=== PATIENT | female | born 1955 | race Caucasian/White ===

== ENCOUNTER 2020-03-02 13:26 | Emergency (ER) | payer BC, SELFPAY ==
--- NOTE | ~2020-03-02 | XR_ITS ---
EXAMINATION: XR tibia fibula RT 2V INDICATION: Right leg redness and swelling TECHNIQUE: Two views of the right tibia and fibula are obtained on three radiographs. COMPARISON: None available FINDINGS: There is no fracture, dislocation, or subluxation. Mild osteoarthritis is noted in the knee and midfoot. Soft tissue swelling is present. IMPRESSION: 1. Soft tissue swelling without acute osseous abnormality. Reviewed, dictated and finalized at location B.
--- NOTE | ~2020-03-02 | US_ITS ---
EXAMINATION: US venous doppler LE RT DATE: 03/02/2020 14:44 INDICATION: Right leg swelling and redness TECHNIQUE: Farrar scale images without and with compression and Doppler images of the right lower extre mity veins were obtained. COMPARISON: None. FINDINGS: There is lower limb edema. The right common femoral vein, profunda femoral vein, femoral ve in, popliteal vein, peroneal trunk, posterior tibial veins, and greater saphenous vein are patent. IMPRESSION: 1. Patent right lower extremity veins. No evidence of deep venous thrombosis. Reviewed, dictated and finalized at location B.
[2020-03-02 13:41] VITALS: BP 181/79; PULSE 102; RESP 22; TEMP 36.8; O2SAT 100
--- NOTE | 2020-03-02 13:47 | ED.LOWEXIN ---
HPI - Extremity Injury (Lower) General Chief Complaint: Extremity Injury, Lower Stated Complaint: R leg cellulitis Time Seen by Provider: 03/02/20 13:35 Source: patient Mode of arrival: ambulatory Limitations: no limitations History of Present Illness HPI Narrative: 64 yo female with h/o lymphedema, HTN who presents for evaluation of right leg redness starting 2 days ago. Patient states she has been evaluated by Vascular surgeon at [facility] care for bilateral leg swelling and venous insufficiency. She has had cellulitis to right leg in the past. She reports having vascular US 6 weeks ago which shows good blood flow. She was receiving wrapping treatments that were improving her swelling and redness but she had to stop due to Coronavirus. Her appointments have been rescheduled in April. She reports there is a sore to posterior right leg starting 2 days and she develop redness. She denies nausea, vomiting, fever, chills, weakness, chest pain or sob. Onset (ago): day(s) (2) Related Data Allergies Allergy/AdvReac Type Severity Reaction Status Date / Time sulfamethoxazole Allergy Rash Verified 03/02/20 14:52 [From Bactrim] trimethoprim [From Bactrim] Allergy Rash Verified 03/02/20 14:52 Review of Systems Review of Systems: All systems reviewed & are unremarkable except as noted in HPI and below Constitutional: Constitutional: Denies chills, Denies fever(s) and Denies weakness Cardiovascular: Cardiovascular: Denies chest pain and Denies radiating jaw, neck or arm pain Respiratory: Respiratory: Denies cough and Denies dyspnea Gastrointestinal: Gastrointestinal: Denies nausea and Denies vomiting Integumentary/Breasts: Skin/Breast: Reports skin ulcer PMFSH Past Medical History Medical History (Updated 03/02/20 @ 15:09 by Judy Ramírez MD) Cellulitis of right leg Hypertension Surgical History Surgical History (Updated 03/02/20 @ 13:56 by Judy Ramírez MD) History of bunionectomy Social History Social History Gender identity (if verbalized by the patient): Female Exam Narrative: Exam Narrative: GENERAL: Well-appearing, well-nourished, and in no acute distress. HEAD: Normocephalic, atraumatic EYES: PERRLA and EOMI, conjunctiva clear without discharge THROAT:Mucous membranes moist, NECK: Supple, without lymphadenopathy or mass RESPIRATORY: No respiratory distress, Airway patent, Respirations non-labored, Clear to auscultation without rales, rhonchi or wheeze HEART: Regular rate and rhythm. No murmur heard. Normal peripheral pulses. ABDOMEN: Soft, nontender, nondistended, normal active bowel sounds. No masses. No rebound or guarding, No organomegaly. EXTREMITIES: normal strength with full range of motion. NEURO: Alert and oriented x3. CN 2-12 grossly intact. No focal deficits. PSYCH: Normal mood and affect. Skin: Other: right lower leg erythema from ankle to just below knee with mild tenderness posterior calf, no drainage, bilateral leg edema Course Reevaluation(s) Reevaluation #1: I discussed with patient that she is stable for discharged with antibiotics for right leg cellulitis. Date: 03/02/20 Time: 15:06 Vital Signs Vital signs: Vital Signs Temperature 98.3 F 03/02/20 13:41 Pulse Rate 102 H 03/02/20 13:41 Respiratory Rate 22 H 03/02/20 13:41 Blood Pressure 181/79 H 03/02/20 13:41 Pulse Oximetry 100 03/02/20 13:41 Temperature 98.3 F 03/02/20 13:41 Pulse Rate 60 03/02/20 15:19 Respiratory Rate 16 03/02/20 15:19 Blood Pressure 143/75 H 03/02/20 15:19 Pulse Oximetry 100 03/02/20 15:19 MDM - Extremity Injury (Lower) Lab Data Attestation: I reviewed the patient's lab results. Result diagrams: 03/02/20 14:01 03/02/20 14:01 Labs: Lab Results 03/02/20 03/02/20 Range/Units 14:01 14:01 WBC 8.9 (4.5-10.0) K/mm3 RBC 4.41 (4.2-5.4) M/mm3 Hgb 12.9 (12.0-15.0) g/dL Hct 39.6 (37.0-47.0) %
[2020-03-02 14:07] LABS: Basophils Percent Auto 0.3 % (0.2-1.2); Eosinophils Absolute Auto 0.1 K/mm3 (0-0.3); Eosinophils Percent Auto 0.6 % (0-4.4); Hematocrit 39.6 % (37.0-47.0); Hemoglobin 12.9 g/dL (12.0-15.0); Immature Granulocyte Absolute 0.03 K/mm3 (0.00-0.031); Immature Granulocyte Percent A 0.3 % (0-0.5); Lymphocytes Absolute Auto 2.48 K/mm3 (0.9-3.2); Mean Corpuscular HGB Conc 32.6 g/dl (32-36); Mean Corpuscular Hemoglobin 29.3 pg (26-34); Mean Corpuscular Volume 89.8 fl (80-100); Mean Platelet Volume 10.1 fl (7.4-10.4); Monocytes Absolute Auto 0.7 K/mm3 (0.1-0.6); Monocytes Percent Auto 7.4 % (2.6-8.5); Neutrophils Absolute Auto 5.6 K/mm3 (1.3-6.7); Neutrophils Percent Auto 63.4 % (45.5-73.1); Platelet Count Result 281 k/mm3 (150-375); Red Blood Count 4.41 M/mm3 (4.2-5.4); Red Cell Distribution Width 13.6 % (11.5-14.5); White Blood Count 8.9 K/mm3 (4.5-10.0)
[2020-03-02 14:20] LABS: Alanine Aminotransferase 24 U/L (4-35); Albumin Level 4.4 g/dL (3.5-5.1); Alkaline Phosphatase 104 U/L (38-126); Aspartate Amino Transferase 26 U/L (14-36); Bilirubin,Total 0.3 mg/dL (0.2-1.3); Blood Urea Nitrogen 22 mg/dL (7-17); CRP 2.2 mg/dL (<1.0); Carbon Dioxide 24 mmol/L (22-30); Chloride 105 mmol/L (98-107); Estimated CRCL calculation 75 ml/min; Estimated Glomerular Filt Rate > 60; Glucose 98 mg/dL (65-105); Potassium 3.7 mmol/L (3.4-5.0); Sodium 139 mmol/L (137-145)
[2020-03-02] MEDS: DOXYCYCLINE HYCLATE 100 MG TABLET PO (14:44)
[2020-03-02 15:19] VITALS: BP 143/75; PULSE 60; RESP 16; O2SAT 100
== END 2020-03-02 15:35 | disposition home or self-care (01) ==
PROVIDERS: Emergency Provider General Practice
DX: L03.115 Cellulitis of right lower limb (principal); I10 Essential (primary) hypertension
CPT/HCPCS: 36415; 73590; 80053; 85025; 86140; 93971; 99284; A9270

== ENCOUNTER 2021-01-25 16:15 | Emergency (ER) | payer BC, SELFPAY ==
[2021-01-25] VITALS (21 sets, daily range): BP systolic 103–156; BP diastolic 58–83; PULSE 71–88; RESP 14–23; TEMP 36.7; O2SAT 92–100
--- NOTE | ~2021-01-25 | XR_ITS ---
EXAMINATION: XR chest 2V DATE: 01/25/2021 17:02 INDICATION: Left-sided chest pain, hypertension TECHNIQUE: PA and lateral views of the chest are obtained. COMPARISON: None available FINDINGS: There is mild atelectasis of the lung bases. There is no pleural effusion or pneumothorax. The cardiomediastinal silhouette is normal. There is moderate thoracic spondylosis. IMPRESSION: 1. Mild atelectasis of the lung bases. Reviewed, dictated and finalized at location A. COORDINATOR
--- NOTE | 2021-01-25 16:38 | ED.CHESTPAIN ---
HPI - Chest Pain General Chief Complaint: Chest Pain Stated Complaint: chest pain Time Seen by Provider: 01/25/21 16:28 Source: patient Mode of arrival: ambulatory Limitations: no limitations History of Present Illness HPI narrative: This is a 65 year old female that presents to the ER for intermittent chest discomfort over the last couple of days. Reports the pain feels like a muscle strain. It comes and goes. No known alleviating or exacerbating factors. The pain is worse with movement at times though. Denies fever, cough or shortness of breath. Related Data Allergies Allergy/AdvReac Type Severity Reaction Status Date / Time sulfamethoxazole Allergy Rash Verified 01/25/21 16:35 [From Bactrim] trimethoprim [From Bactrim] Allergy Rash Verified 01/25/21 16:35 Review of Systems Review of Systems: Narrative: CONSTITUTIONAL: Denies fever CARDIOVASCULAR: Reports chest pain, and edema. RESPIRATORY: Denies cough or dyspnea. All systems reviewed & are unremarkable except as noted in HPI and below PMFSH Past Medical History Medical History (Updated 01/25/21 @ 20:43 by Beth Schwab PA-C) Cellulitis of right leg History of hyperlipidemia Hypertension Surgical History Surgical History (Updated 03/02/20 @ 13:56 by Judy Ramírez MD) History of bunionectomy Social History Social History (Updated 01/25/21 @ 16:42 by Beth Schwab PA-C) Smoking status: Never smoker Gender identity (if verbalized by the patient): Female Exam Narrative: Exam Narrative: GENERAL: Well-appearing, obese, and in no acute distress. HEAD: Normocephalic, atraumatic. EYES: EOMI. ENT: Mucous membranes moist. Oropharynx without tonsillar hypertrophy exudate or other lesions. NECK: Supple. No adenopathy or masses. No carotid bruits or JVD CHEST: Clear to auscultation. No respiratory distress. No wheezes rales or rhonchi HEART: Regular rate and rhythm. No murmur heard. Normal peripheral pulses. EXTREMITIES: Normal range of motion. SKIN: Warm, dry, no rash. NEURO: No focal deficits. Alert and oriented x3. PSYCH: Normal mood and affect Course Consultations Consultation #1: Spoke with Dr. Dudley about patient and work-up. With atypical pain and negative baseline and 3 hour troponin, patient does feel appropriate for further outpatient evaluation. Date: 01/25/21 Time: 20:41 Vital Signs Vital signs: Vital Signs Pulse Rate 88 01/25/21 16:23 Respiratory Rate 15 01/25/21 16:23 Pulse Oximetry 100 01/25/21 16:23 Temperature 98.0 F 01/25/21 16:30 Pulse Rate 75 01/25/21 19:15 Respiratory Rate 21 H 01/25/21 18:45 Blood Pressure 122/58 L 01/25/21 19:01 Pulse Oximetry 96 01/25/21 19:38 MDM - Chest Pain MDM Narrative Medical decision making narrative: Patient presents to the emergency department for intermittent chest pain over the last couple of days. Does report the pain feels like a muscle strain. She does note this pain with certain movements. She reported improvement of her pain with Tylenol. Her vitals are stable. CBC and metabolic panel without concerning changes. EKG without concerning ST changes in her baseline and 3-hour troponin are negative. Chest x-ray shows mild atelectasis of the lung bases. Her heart score is a 4. Spoke with Dr. Dudley about patient and work-up. With atypical pain and negative baseline and 3 hour troponin, patient does feel appropriate for further outpatient evaluation. Patient of course was given warnings to return to the ER Lab Data Attestation: I reviewed the patient's lab results. Result diagrams: 01/25/21 16:49 01/25/21 16:49 Labs: Lab Results 01/25/21 01/25/21 01/25/21 Range/Units 16:49 16:49 16:49 WBC 9.2 (4.5-10.0) K/mm3 RBC 4.64 (4.2-5.4) M/mm3 Hgb 14.0 (12.0-15.0) g/dL Hct 42.6 (37.0-47.0) % MCV 91.8 (80-100) fl MCH 30.2 (26-34) pg MCHC 32.9 (32-36) g/dl RDW 13.8 (11.5-14.
[2021-01-25 17:03] LABS: Basophils Percent Auto 0.3 % (0.2-1.2); Eosinophils Absolute Auto 0.1 K/mm3 (0-0.3); Eosinophils Percent Auto 1.1 % (0-4.4); Hematocrit 42.6 % (37.0-47.0); Immature Granulocyte Absolute 0.04 K/mm3 (0.00-0.031); Immature Granulocyte Percent A 0.4 % (0-0.5); Lymphocytes Absolute Auto 2.49 K/mm3 (0.9-3.2); Lymphocytes Percent Auto 27.1 % (18.3-44.2); Mean Corpuscular HGB Conc 32.9 g/dl (32-36); Mean Corpuscular Hemoglobin 30.2 pg (26-34); Mean Corpuscular Volume 91.8 fl (80-100); Mean Platelet Volume 10.3 fl (7.4-10.4); Monocytes Absolute Auto 0.8 K/mm3 (0.1-0.6); Monocytes Percent Auto 8.4 % (2.6-8.5); Neutrophils Absolute Auto 5.8 K/mm3 (1.3-6.7); Neutrophils Percent Auto 62.7 % (45.5-73.1); Platelet Count Result 293 k/mm3 (150-375); Red Blood Count 4.64 M/mm3 (4.2-5.4); Red Cell Distribution Width 13.8 % (11.5-14.5); White Blood Count 9.2 K/mm3 (4.5-10.0)
--- NOTE | 2021-01-25 17:04 | ECG_ITS ---
Measurements Intervals [place] Rate: 87 P: 35 PA: 158 QRS: 6 QRSD: 94 T: 0 QT: 375 QTc: 451 Interpretive Statements SINUS RHYTHM EARLY PRECORDIAL R/S TRANSITION INFERIOR INFARCT, AGE INDETERMINATE BORDERLINE ST-T WAVE ABNORMALITY- ANTEROLATERAL LEADS BASELINE WANDER- V1, V4-V6 ABNORMAL ECG Electronically Signed On 01-25-2021 19:56:28 LEATHER REPAIRER by Omega Borrero D.O.
[2021-01-25] MEDS: ASPIRIN 81 MG CHEWABLE TABLET 324 MG PO (17:12)
[2021-01-25 17:15] LABS: INR 0.9; Prothrombin Time 12.8 Seconds (11.1-14.7)
[2021-01-25 17:16] LABS: Partial Thromboplastin Time 27.6 SECONDS (22.3-36.8)
[2021-01-25 17:20] LABS: Anion Gap 9 mmol/L (8-16); Blood Urea Nitrogen 28 mg/dL (7-17); Calcium 9.6 mg/dL (8.4-10.2); Carbon Dioxide 26 mmol/L (22-30); Chloride 107 mmol/L (98-107); Estimated CRCL calculation 83 ml/min; Estimated Glomerular Filt Rate > 60; Glucose 102 mg/dL (65-105); Potassium 3.7 mmol/L (3.4-5.0); Sodium 142 mmol/L (137-145)
[2021-01-25 17:32] LABS: Troponin I < 0.012 ng/mL (0.000-0.034)
[2021-01-25] MEDS: ACETAMINOPHEN 500 MG TABLET 1000 MG PO (18:44)
--- NOTE | 2021-01-25 19:18 | PC.NURSE ---
Report received from ADRIA Shields. Assumed care of patient at this time.
[2021-01-25 20:15] LABS: Troponin I < 0.012 ng/mL (0.000-0.034)
== END 2021-01-25 21:00 | disposition home or self-care (01) ==
PROVIDERS: Physician Assistant; Emergency Provider Emergency Medicine
DX: R07.89 Other chest pain (principal); E78.5 Hyperlipidemia, unspecified; I10 Essential (primary) hypertension; R94.31 Abnormal electrocardiogram [ECG] [EKG]; R91.8 Other nonspecific abnormal finding of lung field
CPT/HCPCS: 36415; 71046; 80048; 84484; 85025; 85610; 85730; 93005; 99284; A9270

== ENCOUNTER 2023-06-23 09:59 | Emergency (ER) | payer OTHER, SELFPAY ==
--- NOTE | ~2023-06-23 | CT_ITS ---
EXAMINATION: CT abdomen pelvis wo con DATE: 06/23/2023 11:49 INDICATION: Flank pain. Hematuria. TECHNIQUE: Computed tomography (CT) of the abdomen and pelvis was performed without intravenous contr ast. Automated exposure control and iterative reconstruction technique were employed. The dose-length product was 1549.90 mGy-cm. COMPARISON: None. FINDINGS: The visualized portions of the lung bases demonstrate mild atelectasis. There is mild scarr ing in paraspinal right lower lobe. No pleural effusion. The heart size is normal. No pericardial eff usion. There is mild elevation of anterior right hemidiaphragm. There is diffuse hepatic steatosis. T he gallbladder, pancreas, and adrenal glands are normal. There are 1 mm and 9 mm stones in right kidn ey. There is mild right hydronephrosis. There is a 4 mm stone in proximal right ureter. There is mild left hydronephrosis and hydroureter. There are no dilated loops of bowel. The appendix is normal. Ao rtic atherosclerosis is noted. There are no pathologically enlarged lymph nodes. There is no free in traperitoneal fluid. There is moderate cervical spondylosis and severe lumbar spondylosis. There is a hemangioma in T9 vertebral body. IMPRESSION: 1. 4 mm stone in proximal right ureter with mild right hydronephrosis. 2. Nonobstructing right kidney stones. 3. Mild left hydronephrosis and hydroureter of uncertain etiology. Reviewed, dictated and finalized at location A.
[2023-06-23 10:05] VITALS: BP 158/68; PULSE 76; RESP 16; TEMP 36.3; O2SAT 100
[2023-06-23 10:23] LABS: Basophils Percent Auto 0.1 % (0.2-1.2); Hematocrit 40.4 % (37.0-47.0); Hemoglobin 13.5 g/dL (12.0-15.0); Immature Granulocyte Absolute 0.06 K/mm3 (0.00-0.031); Immature Granulocyte Percent A 0.6 % (0-0.5); Lymphocytes Absolute Auto 0.83 K/mm3 (0.9-3.2); Lymphocytes Percent Auto 7.8 % (18.3-44.2); Mean Corpuscular HGB Conc 33.4 g/dl (32-36); Mean Corpuscular Hemoglobin 30.7 pg (26-34); Mean Corpuscular Volume 91.8 fl (80-100); Mean Platelet Volume 9.9 fl (7.4-10.4); Monocytes Absolute Auto 0.4 K/mm3 (0.1-0.6); Monocytes Percent Auto 4.1 % (2.6-8.5); Neutrophils Absolute Auto 9.3 K/mm3 (1.3-6.7); Neutrophils Percent Auto 87.4 % (45.5-73.1); Platelet Count Result 248 k/mm3 (150-375); Red Cell Distribution Width 13.3 % (11.5-14.5); White Blood Count 10.7 K/mm3 (4.5-10.0)
[2023-06-23 10:43] LABS: Alanine Aminotransferase 29 U/L (6-35); Albumin Level 4.5 g/dL (3.5-5.1); Alkaline Phosphatase 114 U/L (38-126); Anion Gap 12 mmol/L (8-16); Aspartate Amino Transferase 29 U/L (14-36); Bilirubin,Total 0.5 mg/dL (0.2-1.3); Blood Urea Nitrogen 25 mg/dL (7-17); Calcium 9.7 mg/dL (8.4-10.2); Carbon Dioxide 22 mmol/L (22-30); Chloride 107 mmol/L (98-107); Estimated CRCL calculation 59 ml/min; Estimated Glomerular Filt Rate 55; Glucose 130 mg/dL (65-110); Lipase 85 U/L (23-300); Sodium 141 mmol/L (137-145)
[2023-06-23 10:47] LABS: Appearance Urine Clear (Clear); Bacteria Urine None Seen /hpf; Bilirubin Urine Negative (Negative); Blood Urine 3+ (Negative); Color Urine Yellow (Yellow); Glucose Urine UA Negative (Negative); Ketones Urine Negative (Negative); Leukocyte Esterase Ur Trace LEU/UL (Negative); Nitrate Urine Negative (Negative); Protein Urine 1+ mg/dL (Negative); RBC Urine >100 /hpf (0-2); Squamous Epithelial Cell Urine None seen /hpf (Few); Urobilinogen Urine 0.2 mg/dL (<2.0); WBC Urine 0-5 /hpf; pH Urine 5.5 (5.0-9.0)
[2023-06-23 10:56] LABS: Add Urine Microscopic? YES
--- NOTE | 2023-06-23 11:25 | ED.ABDPAIN ---
HPI - Abdominal Pain General Chief Complaint: Abdominal Pain Stated Complaint: possible kidney stone Time Seen by Provider: 06/23/23 10:20 Source: patient Mode of arrival: ambulatory Limitations: no limitations History of Present Illness HPI narrative: This is a 67 year old female that presents to the ER for low back pain. Present over the last couple of weeks. Reports her pain last night felt like when she had had a kidney stone before which prompted her to be seen. Reports the pain is achy and radiates into her abdomen at times. Denies fever, vomiting, dysuria or hematuria. Related Data Allergies Allergy/AdvReac Type Severity Reaction Status Date / Time sulfamethoxazole Allergy Rash Verified 06/23/23 10:13 [From Bactrim] trimethoprim [From Bactrim] Allergy Rash Verified 06/23/23 10:13 Review of Systems Review of Systems: CONSTITUTIONAL: Denies fever GASTROINTESTINAL: Reports abdominal pain. Denies vomiting GENITOURINARY: Denies dysuria or hematuria. All systems reviewed & are unremarkable except as noted in HPI and below PMFSH Past Medical History Medical History (Updated 06/23/23 @ 13:27 by Beth Schwab PA-C) Cellulitis of right leg History of hyperlipidemia Hypertension Surgical History Surgical History (Updated 03/02/20 @ 13:56 by Judy Ramírez MD) History of bunionectomy Social History Social History (Updated 01/25/21 @ 16:42 by Beth Schwab PA-C) Smoking status: Never smoker Gender identity (if verbalized by the patient): Female Exam Narrative: GENERAL: Well-appearing, well-nourished, and in no acute distress. HEAD: Normocephalic, atraumatic. EYES: EOMI. CHEST: Clear to auscultation. No respiratory distress. No wheezes rales or rhonchi HEART: Regular rate and rhythm. No murmur heard. Normal peripheral pulses. ABDOMEN: Soft, nontender, nondistended, normal active bowel sounds. No CVA tenderness EXTREMITIES: Normal range of motion. No edema. SKIN: Warm, dry, no rash. NEURO: No focal deficits. Alert and oriented x3. PSYCH: Normal mood and affect Course Course Emergency Course: Patient was updated on workup and agrees with plan of care Vital Signs Vital signs: Vital Signs Temperature 97.3 F L 06/23/23 10:05 Pulse Rate 76 06/23/23 10:05 Respiratory Rate 16 06/23/23 10:05 Blood Pressure 158/68 H 06/23/23 10:05 Pulse Oximetry 100 06/23/23 10:05 Oxygen Delivery Room Air 06/23/23 10:05 Temperature 97.3 F L 06/23/23 10:05 Pulse Rate 84 06/23/23 12:41 Respiratory Rate 18 06/23/23 12:41 Blood Pressure 160/77 H 06/23/23 12:41 Pulse Oximetry 100 06/23/23 12:41 Oxygen Delivery Room Air 06/23/23 10:05 MDM - Abdominal Pain MDM Narrative Medical decision making narrative: Patient presents to the emergency department for low back pain intermittently over the last several weeks. She is afebrile and nontoxic-appearing. Her vitals are stable. CBC with mild leukocytosis to 10.7. Metabolic panel without concerning findings. UA without evidence of infection. Does show red blood cells. CT scan of the abdomen and pelvis shows a 4 mm stone in the proximal right ureter with mild right hydronephrosis. Patient was updated on work-up and agrees with plan of care. Will be given follow-up with urology. She is stable and felt appropriate for further outpatient evaluation. She was given warnings to return to the ER Differential Diagnosis Differential diagnosis: Likely calculus of kidney, constipation, diverticulitis and other (UTI) Lab Data Attestation: I reviewed the patient's lab results. 06/23/23 10:15 06/23/23 10:15 Labs: Lab Results 06/23/23 06/23/23 Range/Units 10:15 10:38 WBC 10.7 H (4.5-10.0) K/mm3 RBC 4.40 (4.2-5.4) M/mm3 Hgb 13.5 (12.0-15.0) g/dL Hct 40.4 (37.0-47.0) % MCV 91.8 (80-100) fl MCH 30.7 (26-34) pg MCHC 33.4 (32-36) g/dl RDW 13.3 (11.5-14.5)
[2023-06-23 12:41] VITALS: BP 160/77; PULSE 84; RESP 18; O2SAT 100
[2023-06-23] MEDS: ONDANSETRON INJ 4 MG/2 ML VIAL IV PUSH (13:07)
== END 2023-06-23 13:55 | disposition home or self-care (01) ==
PROVIDERS: Emergency Medicine; Emergency Provider Physician Assistant
DX: N20.1 Calculus of ureter (principal); I10 Essential (primary) hypertension; E78.5 Hyperlipidemia, unspecified
CPT/HCPCS: 36415; 74176; 80053; 81001; 83690; 85025; 96374; 99284; J2405

== ENCOUNTER 2023-06-30 15:56 | Outpatient (CLI) | payer OTHER, SELFPAY ==
--- NOTE | ~2023-06-30 | XR_ITS ---
Supine and upright views of the abdomen Clinical history: Right ureteral stone Findings: Bowel gas pattern is nonspecific. No evidence for obstruction or free air. No abnormal mass lesion or calcification is seen. Osseous structures are intact. Impression: No significant abnormality is seen. Reviewed, dictated and finalized at [facility]. Impression: No significant abnormality is seen.
== END 2023-06-30 15:57 | disposition home or self-care (01) ==
PROVIDERS: Visit Provider Urology
DX: N20.1 Calculus of ureter (principal)
CPT/HCPCS: 74018

== ENCOUNTER 2023-07-10 16:37 | Outpatient (CLI) | payer OTHER, SELFPAY ==
--- NOTE | ~2023-07-10 | XR_ITS ---
EXAM: XR abdomen/kub 1V DATE: 07/10/2023 17:11 HISTORY: RIGHT URETERAL STONE, FOLLOW-UP . COMPARISON: CT abdomen and pelvis, same date. FINDINGS: Clear lung bases. Normal bowel gas pattern. No organomegaly. No abnormal abdominal calcifi cation. Lumbar degenerative disc disease. Moderate osteitis pubis and bilateral SI joint osteoarthrit is. Mild degenerative change in the bilateral hips IMPRESSION: No radiographic evidence of nephrolithiasis. The right lower pole calcification seen in t he concurrent CT is not visible radiographically. Reviewed, dictated and finalized at location K. IMPRESSION: No radiographic evidence of nephrolithiasis. The right lower pole c alcification seen in the concurrent CT is not visible radiographically.
--- NOTE | ~2023-07-10 | CT_ITS ---
EXAMINATION: CT abdomen pelvis wo con DATE: 07/10/2023 17:26 INDICATION: RIGHT URETERAL STONE TECHNIQUE: Computed tomography (CT) of the abdomen and pelvis was performed without intravenous contr ast. Automated exposure control and iterative reconstruction technique were employed. The dose-length product was 858.42 mGy-cm. COMPARISON: 06/23/2023. FINDINGS: Lower thorax: Bibasilar scar/atelectasis. Liver: Normal. Biliary/Gallbladder: Gallbladder is normal. No bile duct dilation. Pancreas: No mass or duct dilation. Spleen: Normal. Adrenals:No mass. Kidneys: No suspicious mass. No hydronephrosis. 3 mm calcification in the right lower pole. GI tract: No small or large bowel dilation. Normal appendix. Mesentery/Peritoneum: No ascites, mass, or free air. Retroperitoneum: No mass. Atherosclerotic abdominal aortic and/or arterial calcifications. Pelvis: Partially distended bladder with wall thickening/inflammatory change. Pelvic organs otherwise within normal limits.. Soft Tissues: Soft tissues and body wall unremarkable. Bones: No acute osseous finding. IMPRESSION: 3 mm nonobstructing stone/calcification in the right lower renal pole. Cystitis versus lateral wall thickening from incomplete distention. Reviewed, dictated and finalized at location K.
== END 2023-07-10 16:38 | disposition home or self-care (01) ==
PROVIDERS: Visit Provider Urology
DX: N20.1 Calculus of ureter (principal)
CPT/HCPCS: 74018; 74176

== ENCOUNTER 2023-11-26 15:58 | Inpatient (IN) | payer OTHER, MEDICARE, SELFPAY ==
[2023-11-26] VITALS (13 sets, daily range): BP systolic 114–136; BP diastolic 46–63; PULSE 64–88; RESP 16–27; TEMP 36.7–37.2; O2SAT 94–98
--- NOTE | ~2023-11-26 | XR_ITS ---
XR chest 2V DATE: 11/26/2023 16:33 INDICATION: Cough, shortness of breath with exercise TECHNIQUE: AP and lateral views COMPARISON: 01/25/2021 2 view chest FINDINGS: There is bibasilar infiltrate and/atelectasis. There is chronic mild elevation right leaf o f the diaphragm, present on 01/25/2021. No pleural effusion or pulmonary vascular congestion or pneumothorax. Degenerative spurring of the thoracic spine. IMPRESSION: Bibasilar infiltrate and/or atelectasis Reviewed, dictated and finalized at location L. S ESTIMATOR
--- NOTE | ~2023-11-26 | CT_ITS ---
EXAMINATION: CT brain wo con DATE: 11/26/2023 17:24 INDICATION: Headache. Loss of consciousness yesterday. TECHNIQUE: Computed tomography (CT) of the head was performed without intravenous contrast. The mA wa s adjusted according to patient size. Iterative reconstruction technique was employed. Exam dose: 60 5.33 mGy-cm total exam DLP. COMPARISON: None FINDINGS: Bilateral carotid siphon artery calcification. No intracranial mass lesion or hemorrhage. No midline shift or mass effect. Normal ventricular size . No subdural or epidural hematoma. Mild cerebellar volume loss. No fracture or bone destruction of the cranial vault. Bilateral hyperostosis frontalis interna, not likely of any significance. Normal development and aeration of the mastoid air cells and paranasal sinuses. IMPRESSION: Cerebral atherosclerosis No acute intracranial finding Reviewed, dictated and finalized at Location A. Reviewed, dictated and finalized at location L. DELIVERY
--- NOTE | ~2023-11-26 | MR_ITS ---
EXAMINATION: MR brain/brain stem wo con DATE: 11/27/2023 17:21 INDICATION: Confusion. TECHNIQUE: Magnetic resonance imaging (MRI) of the brain and brainstem was performed without intraven ous contrast. COMPARISON: Head CT 11/26/2023 FINDINGS: There are scattered areas of nonspecific increased T2-weighted signal intensity in the cere bral white matter and sarthak, which is within normal limits for the patient's age. There is no intracra nial hemorrhage, acute infarction, or abnormal intracranial mass lesion. The ventricles are normal in size. There is a trace right mastoid effusion. The paranasal sinuses are clear. The orbits are katelynn l. IMPRESSION: 1. Normal aging brain. Reviewed, dictated and finalized at location E. GER STRATEGIC SOURCING IMPRESSION: 1. Normal aging brain.
--- NOTE | ~2023-11-26 | US_ITS ---
Duplex Sonography of the right extremity: Indication: Swelling, erythema Findings: Sagittal and transverse B-mode images as well as color-flow imaging were performed on the r ight femoral and popliteal veins. B-mode examination was done without and with compression in the tr ansverse plane. There is good visualization of the common femoral, proximal profunda femoral, superf icial femoral, greater saphenous, and popliteal veins. Normal flow was seen on color-flow imaging. N ormal compressibility was demonstrated. Visualized calf veins are also patent. Impression: No evidence of deep vein thrombosis involving the right lower extremity. Reviewed, dictated and finalized at location . GENCY PREPAREDNESS COORDINATOR Impression: No evidence of deep vein thrombosis involving the right lower extremity.
--- NOTE | 2023-11-26 16:13 | ECG_ITS ---
Measurements Intervals [place] Rate: 81 P: 34 WV: 150 QRS: 17 QRSD: 100 T: 53 QT: 371 QTc: 431 Interpretive Statements SINUS RHYTHM CONSIDER INFERIOR INFARCT, AGE INDETERMINATE NONSPECIFIC ST & T-WAVE ABNORMALITY- LAT/HIGH LAT LEADS BASELINE ARTIFACT- I, III ABNORMAL ECG COMPARED TO ECG 01/25/2021 16:25:52 NO SIGNIFICANT CHANGES Electronically Signed On 11-26-2023 18:04:56 DIRECT MARKETING SPECIALIST by Omega Borrero D.O.
[2023-11-26 16:31] LABS: Basophils Percent Auto 0.2 % (0.2-1.2); Hematocrit 38.5 % (37.0-47.0); Hemoglobin 12.5 g/dL (12.0-15.0); Immature Granulocyte Absolute 0.08 K/mm3 (0.00-0.031); Immature Granulocyte Percent A 0.5 % (0-0.5); Lymphocytes Absolute Auto 0.77 K/mm3 (0.9-3.2); Lymphocytes Percent Auto 4.4 % (18.3-44.2); Mean Corpuscular HGB Conc 32.5 g/dl (32-36); Mean Corpuscular Hemoglobin 29.6 pg (26-34); Mean Platelet Volume 10.1 fl (7.4-10.4); Monocytes Absolute Auto 1.2 K/mm3 (0.1-0.6); Neutrophils Absolute Auto 15.4 K/mm3 (1.3-6.7); Neutrophils Percent Auto 87.9 % (45.5-73.1); Platelet Count Result 243 k/mm3 (150-375); Red Blood Count 4.23 M/mm3 (4.2-5.4); Red Cell Distribution Width 14.6 % (11.5-14.5); White Blood Count 17.5 K/mm3 (4.5-10.0)
--- NOTE | 2023-11-26 16:41 | ED.GENADULT ---
HPI - General Adult General Chief complaint: Headache Stated complaint: Headache Time Seen by Provider: 11/26/23 16:14 History of Present Illness HPI narrative: Patient is a 68-year-old female who presents ER with lethargy. Reports she has been feeling very tired for 2 days. She was so tired yesterday she fell asleep after going to [facility] while she was in her car. Then apparently she drove 50 miles office it towards or home when she tried to drive home and then was found sleeping in her car 8 hours later. She refused care after having normal vital signs and a normal Accu-Chek and then drove back home. She continues to feel fatigued today and due to her memory lapse yesterday she thought be best to be evaluated. She had mild headache yesterday that was left-sided. She has no headache today. No runny nose or sore throat or productive cough. No urinary frequency urgency or dysuria. No abdominal pain or diarrhea. She is alert orient x3 at this time. Related Data Allergies Allergy/AdvReac Type Severity Reaction Status Date / Time sulfamethoxazole Allergy Rash Verified 06/23/23 10:13 [From Bactrim] trimethoprim [From Bactrim] Allergy Rash Verified 06/23/23 10:13 Review of Systems Review of Systems: All systems reviewed & are unremarkable except as noted in HPI and below Constitutional: Constitutional: Denies chills, Reports fatigue and Denies fever(s) ENT: Reports system reviewed and no additional complaints, except as documented Cardiovascular: Cardiovascular: Reports no additional cardiovascular complaints Respiratory: Respiratory: Reports no additional respiratory complaints Genitourinary: Genitourinary: Reports no additional female genitourinary complaints Neurologic: Reports confusion, Reports headache(s), Denies focal weakness and Denies numbness PMFSH Past Medical History Medical History (Updated 11/26/23 @ 19:21 by Jeromy Gracia MD) Cellulitis of right leg History of hyperlipidemia Hypertension Surgical History Surgical History (Updated 03/02/20 @ 13:56 by Judy Ramírez MD) History of bunionectomy Social History Social History (Updated 01/25/21 @ 16:42 by Beth Schwab PA-C) Smoking status: Never smoker Gender identity (if verbalized by the patient): Female Exam Narrative: GENERAL: Well-appearing, well-nourished, and in no acute distress. HEAD: Normocephalic, atraumatic. ENT: Mucous membranes moist. NECK: Supple. CHEST: Clear to auscultation. No respiratory distress. HEART: Regular rate and rhythm. Normal peripheral pulses. ABDOMEN: Soft, nontender, nondistended. EXTREMITIES: Normal range of motion. No edema. SKIN: Warm, dry, no rash. NEURO: No focal deficits. Alert and oriented x3. PSYCH: Normal mood and affect. Course Course Emergency Course: Patient resting comfortably. Admit for observation given transient confusion yesterday. May be delirium from infection but could also be a TIA. Hospitalist request neurology consult which is been added. Vital Signs Vital signs: Vital Signs Temperature 98.0 F 11/26/23 16:02 Pulse Rate 87 11/26/23 16:02 Respiratory Rate 17 11/26/23 16:02 Blood Pressure 129/48 L 11/26/23 16:02 Pulse Oximetry 95 11/26/23 16:02 Oxygen Delivery Room Air 11/26/23 16:02 Temperature 98.0 F 11/26/23 16:02 Pulse Rate 69 11/26/23 18:44 Respiratory Rate 16 11/26/23 18:44 Blood Pressure 117/57 L 11/26/23 18:44 Pulse Oximetry 97 11/26/23 18:44 Oxygen Delivery Room Air 11/26/23 16:02 Medical Decision Making Vital Signs Vital Signs: Vital Signs Temperature 98.0 F 11/26/23 16:02 Pulse Rate 87 11/26/23 16:02 Respiratory Rate 17 11/26/23 16:02 Blood Pressure 129/48 L 11/26/23 16:02 Pulse Oximetry 95 11/26/23 16:02 Oxygen Delivery Room Air 11/26/23 16:02 Temperature 98.0 F 11/26/23 16:02 Pulse Rate 69 11/26/23 18:44 Respiratory Rate 16 11/26/23 18:
[2023-11-26 16:43] LABS: Albumin Level 4.2 g/dL (3.5-5.1); Alkaline Phosphatase 97 U/L (38-126); Anion Gap 10 mmol/L (8-16); Aspartate Amino Transferase 30 U/L (14-36); Bilirubin,Total 1.1 mg/dL (0.2-1.3); Blood Urea Nitrogen 17 mg/dL (7-17); Calcium 9.4 mg/dL (8.4-10.2); Carbon Dioxide 26 mmol/L (22-30); Chloride 100 mmol/L (98-107); Estimated CRCL calculation 71 ml/min; Estimated Glomerular Filt Rate > 60; Glucose 150 mg/dL (65-110); Potassium 2.9 mmol/L (3.4-5.0); Sodium 136 mmol/L (137-145)
[2023-11-26 16:53] LABS: Alanine Aminotransferase 30 U/L (6-35)
[2023-11-26 18:02] LABS: Influenza A QL RT-PCR Negative (Negative); Influenza B QL RT-PCR Negative (Negative); RSV RNA, RT-PCR Negative (Negative); SARS-CoV-2 RNA PCR Negative (Negative)
[2023-11-26 18:11] LABS: Appearance Urine Cloudy (Clear); Bacteria Urine 4+ /hpf; Bilirubin Urine Negative (Negative); Blood Urine 1+ (Negative); Color Urine Dark Yellow (Yellow); Glucose Urine UA Negative (Negative); Hyaline Casts Urine Present /lpf; Ketones Urine Negative (Negative); Leukocyte Esterase Ur 1+ LEU/UL (Negative); Need Manual Microscopic Reviewed; Nitrate Urine Positive (Negative); Protein Urine 1+ mg/dL (Negative); RBC Urine 0-2 /hpf (0-2); Squamous Epithelial Cell Urine Occasional /hpf (Few); Urobilinogen Urine 0.2 mg/dL (<2.0); WBC Urine 21-50 /hpf; pH Urine 5.5 (5.0-9.0)
[2023-11-26 18:12] LABS: Add Urine Microscopic? YES
--- NOTE | 2023-11-26 20:30 | PM.IMHP ---
H&P: HPI History of Present Illness Date/Time: 11/26/23 20:30 Chief Complaint: Altered mental status Narrative: This is a 68-year-old female with past medical history significant for hypertension, dyslipidemia, chronic bilateral lower extremity venous stasis, chronic lymphedema. Patient presents to the emergency room after she was found in her car in a for location from her house patient has no recollection how she got there only remembers not feeling well supposed to have been there for at least 7 hours patient also had incontinence of urine, had been in her usual state of health up until this point. Denies any focal weakness. Preliminary workup was significant for chest x-ray with infiltrates. A urinalysis showed numerous WBCs. XR chest 2V DATE: 11/26/2023 16:33 INDICATION: Cough, shortness of breath with exercise? TECHNIQUE: AP and lateral views? COMPARISON: 01/25/2021 2 view chest? FINDINGS: There is bibasilar infiltrate and/atelectasis. There is chronic mild elevation right leaf of the diaphragm, present on 01/25/2021. No pleural effusion or pulmonary vascular congestion or pneumothorax. Degenerative spurring of the thoracic spine. IMPRESSION: Bibasilar infiltrate and/or atelectasis? EXAMINATION: CT brain wo con DATE: 11/26/2023 17:24 INDICATION: Headache.? Loss of consciousness yesterday. TECHNIQUE: Computed tomography (CT) of the head was performed without intravenous contrast. The mA was adjusted according to patient size. Iterative reconstruction technique was employed. Exam dose:? 605.33 mGy-cm total exam DLP.? COMPARISON: None FINDINGS: Bilateral carotid siphon artery calcification. No intracranial mass lesion or hemorrhage.? No midline shift or mass effect.? Normal ventricular size.? No subdural or epidural hematoma. Mild cerebellar volume loss. No fracture or bone destruction of the cranial vault.? Bilateral hyperostosis frontalis interna, not likely of any significance. Normal development and aeration of the mastoid air cells and paranasal sinuses.? IMPRESSION:? Cerebral atherosclerosis No acute intracranial finding Review of Systems Review of Systems: Altered mental status, amnesia [facility] Past Medical History Medical History (Updated 11/27/23 @ 04:19 by Deven Ceron MD) Cellulitis of right leg History of hyperlipidemia Hypertension Surgical History Surgical History (Updated 03/02/20 @ 13:56 by Judy Ramírez MD) History of bunionectomy Family History Family History (Updated 11/26/23 @ 20:57 by Katiana Stevenson RN) Mother Acute myocardial infarction Hypertension Father Renal failure Social History Social History (Updated 01/25/21 @ 16:42 by HARSHAD ZhangC) Smoking status: Never smoker Alcohol intake: never Substance use: never Do You Feel Safe in your Home?: Yes Lack of Transportation: No Lack of Food: Never True Current Housing: I Have Housing Concerned About Future Housing: No Difficulty Paying Gas/Electric Bills: No Difficulty Paying for Meds: No Currently Unemployed: No Education: High School Diploma/GED Difficulty w/ Childcare or Family Care: No Gender identity (if verbalized by the patient): Female Spiritual care concerns: No Meds Home Medications and Allergies Home Medications Medication Instructions Recorded Confirmed Type atorvastatin 20 mg tablet 20 mg PO DAILY 11/26/23 11/26/23 History ergocalciferol (vitamin D2) 1,250 1,250 mcg PO WEEKLY 11/26/23 11/26/23 History mcg (50,000 unit) capsule hydrochlorothiazide 25 mg tablet 25 mg PO DAILY 11/26/23 11/26/23 History metoprolol succinate 50 mg 50 mg PO DAILY 11/26/23 11/26/23 History tablet,extended release 24 hr trandolapril 2 mg tablet 2 mg PO DAILY 11/26/23 11/26/23 History Allergies Allergy/AdvReac Type Severity Reaction Status Date / Time sulfamethoxazole Allergy Rash Verified 06/23/23 10:13 [From Bactrim] trimethoprim
--- NOTE | 2023-11-26 20:44 | PC.NURSE ---
This RN notified of pt room assignment @ 2020
--- NOTE | 2023-11-26 20:55 | ADMGEN ---
This patient, Amaris Butler, was admitted to Medical Room 342-01. Patient/family oriented to hospital policies and general routines including ID bracelet, bed and alarms, visiting hours, pain management, procedures, bathroom and other care routines, personal items, smoking policy, room service/diet, and visiting hours. Information on how to activate the Rapid Response Team has been discussed. Patient/Family are encouraged to report perceived risks to care and to ask questions if they do not understand what they are told or what they should do.
[2023-11-26] MEDS: HYDROcodone/acetaminophen (*CRX) 5-325 MG TABLET 1 TAB PO (21:32)
[2023-11-26] MEDS: SODIUM CHLORIDE 0.9% IV 1,000 ML 125 ML IV CONT (21:33)
[2023-11-26] MEDS: POTASSIUM CHLORIDE INJ 40 MEQ in SODIUM CHLORIDE 0.9% IV 500 ML 130 MEQ IVPB (22:26)
[2023-11-27] VITALS (10 sets, daily range): BP systolic 132–143; BP diastolic 63–69; PULSE 55–76; RESP 16–18; TEMP 36.4–36.6; O2SAT 96–100
[2023-11-27] MEDS: HYDROcodone/acetaminophen (*CRX) 5-325 MG TABLET 1 TAB PO (04:43)
[2023-11-27] MEDS: AZITHROMYCIN 500 MG/NS 250 ML 500 MG/250 ML BAG 250 MG IVPB (05:15)
[2023-11-27] MEDS: ONDANSETRON INJ 4 MG/2 ML VIAL IV PUSH (06:08)
[2023-11-27 08:38] LABS: Basophils Percent Auto 0.2 % (0.2-1.2); Eosinophils Percent Auto 0.1 % (0-4.4); Hematocrit 36.3 % (37.0-47.0); Hemoglobin 11.4 g/dL (12.0-15.0); Immature Granulocyte Absolute 0.06 K/mm3 (0.00-0.031); Immature Granulocyte Percent A 0.5 % (0-0.5); Lymphocytes Absolute Auto 1.24 K/mm3 (0.9-3.2); Lymphocytes Percent Auto 11.2 % (18.3-44.2); Mean Corpuscular HGB Conc 31.4 g/dl (32-36); Mean Corpuscular Hemoglobin 29.7 pg (26-34); Mean Corpuscular Volume 94.5 fl (80-100); Mean Platelet Volume 10.8 fl (7.4-10.4); Monocytes Absolute Auto 1.2 K/mm3 (0.1-0.6); Neutrophils Absolute Auto 8.5 K/mm3 (1.3-6.7); Platelet Count Result 223 k/mm3 (150-375); Red Blood Count 3.84 M/mm3 (4.2-5.4); Red Cell Distribution Width 14.7 % (11.5-14.5); White Blood Count 11.1 K/mm3 (4.5-10.0)
[2023-11-27 08:47] LABS: Anion Gap 6 mmol/L (8-16); Blood Urea Nitrogen 22 mg/dL (7-17); Calcium 9.1 mg/dL (8.4-10.2); Carbon Dioxide 29 mmol/L (22-30); Chloride 104 mmol/L (98-107); Estimated CRCL calculation 64 ml/min; Estimated Glomerular Filt Rate > 60; Glucose 126 mg/dL (65-110); Potassium 3.2 mmol/L (3.4-5.0); Sodium 139 mmol/L (137-145)
[2023-11-27] MEDS: ATORVASTATIN 20 MG TABLET PO (09:46)
[2023-11-27] MEDS: METOPROLOL SUCCINATE EXT REL 50 MG TABCR PO (09:46)
[2023-11-27] MEDS: ENOXAPARIN 40 MG/0.4 ML SYRINGE SUB-Q (09:50)
[2023-11-27] MEDS: SODIUM CHLORIDE 0.9% IV 1,000 ML 125 ML IV CONT ×2 (09:50→22:16)
--- NOTE | 2023-11-27 09:51 | WPDNEURCNPN ---
Assessment and Plan Assessment and plan (1) Transient confusion: Code(s): R41.0 - Disorientation, unspecified Status: Resolved (2) Acute UTI: Code(s): N39.0 - Urinary tract infection, site not specified Status: Acute Plan Amaris Butler is a 68 year old female with a history of HTN, HLD, lymphedema presenting for evaluation of a transient episode of memory loss. Work-up so far significant for UTI, which in theory can cause encephalopathy. However, this level of memory loss is unusual as patient does not remember driving for several hours trying to get home. Other considerations are focal seizure vs TIA vs transient global amnesia. - Obtain MRI brain - Obtain routine EEG -- can be done outpatient if unable to do over the weekend - I discussed with patient that she should not drive for the next 3 months and needs to be cleared by Neurology before she can resume driving. Consult date: 11/27/23 Reason for consult: Transient episode of confusion/memory loss HPI: Amaris Butler is a 68 year old female with a history of HTN, HLD, lymphedema presenting for evaluation of an episode of confusion/memory impairment. Patient reports for the past two days she has been feeling very tired and sleepy. Yesterday, she was found in her car in a location that was about 50 miles from her house. She had no recollection on how she got there. She also had urinary incontinence. EMS evaluated patient initially and she was found to have normal vitals and glucose. She declined transfer at the time, but eventually came to the ER yesterday to be evaluated. She was AOx3 and at baseline in the ER. CT head was negative. UA concerning for UTI. UDS was not done. She was admitted with IV antibiotics for further evaluation of the episode of concern. 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 She initially went to [facility] but did not get out of her car because she was not feeling well. She decided to drive home (she lives in [place]). Patient has no recollection of driving home. She does not remember crossing the bridge to [place]. She ended up in a small town that is 50 miles from where she lives. She said she was in someone's backyard when the design leader knocked on her window and asked her if she was ok. She did not want to be transferred a local hospital which is why she drove back to [place], and then subsequently decided on being evaluated at [place]. Patient reports that she has overactive bladder, so it is not atypical for her to have some incontinence if she cannot get to toilet in time. Review of Systems Review of Systems: All systems reviewed & are unremarkable except as noted in HPI and below PMFSH Past Medical History Medical History Cellulitis of right leg History of hyperlipidemia Hypertension Surgical History Surgical History History of bunionectomy Family History Family History (Updated 11/26/23 @ 20:57 by Katiana Stevenson RN) Mother Acute myocardial infarction Hypertension Father Renal failure Social History Social History Smoking status: Never smoker Alcohol intake: never Substance use: never Do You Feel Safe in your Home?: Yes Lack of Transportation: No Lack of Food: Never True Current Housing: I Have Housing Concerned About Future Housing: No Difficulty Paying Gas/Electric Bills: No Difficulty Paying for Meds: No Currently Unemployed: No Education: High School Diploma/GED Difficulty w/ Childcare or Family Care: No Gender identity (if verbalized by the patient): Female Spiritual care concerns: No Meds Home Medications and Allergies Home Medications Medication Instructions Recorded Confirmed Type atorvastatin 20 mg tablet 20 mg PO DAILY 11/26/23 11/26/23
[2023-11-27 13:17] LABS: Amphetamine Screen Urine Negative (Negative); Barbiturate Screen Urine Negative (Negative); Benzodiazepines Screen Urine Negative (Negative); Cannabinoid Screen Urine Negative (Negative); Cocaine Screen Urine Negative (Negative); Methadone Screen Urine Negative (Negative); Opiate Screen Urine Negative (Negative); Phencyclidine Screen Urine Negative (Negative)
--- NOTE | 2023-11-27 15:33 | PM.IMPN ---
Progress Note: A&P Assessment and Plan (1) Transient global amnesia: Code(s): G45.4 - Transient global amnesia Status: Acute Assessment and Plan: CT brain showed Cerebral atherosclerosis with no acute intracranial finding Neuro consulted - ordered MRI and EEG UDS negative (2) Acute UTI: Code(s): N39.0 - Urinary tract infection, site not specified Status: Acute Assessment and Plan: Continue Rocephin UA culture pending follows with urologist in [facility] for urge incontinence (3) Transient confusion: Code(s): R41.0 - Disorientation, unspecified Status: Resolved Assessment and Plan: Likely secondary to acute illness (4) Venous stasis dermatitis: Code(s): I87.2 - Venous insufficiency (chronic) (peripheral) Status: Acute Assessment and Plan: Compression stockings (5) Lung infiltrate: Code(s): R91.8 - Other nonspecific abnormal finding of lung field Status: Acute Assessment and Plan: Respiratory panel negative CXR showed bibasilar infiltrate and/or atelectasis WBC 11.1, down from 17.5 on admission Continue Rocephin and Zithromax BC cultures pending Subjective Date/time seen: 11/27/23 15:33 Interval history: Patient A&O x4 this morning. Has no complaints or distress. She reports a mild headache, but no neuro deficits. We will continue to treat for UTI, possible pneumonia. AMS could have been related to infection, however neuro consulted and ordered MRI and EEG for work up. Will follow recommendations on results. Exam Narrative: GENERAL: Well-appearing, well-nourished, and in no acute distress. HEAD: Normocephalic, atraumatic. ENT: Mucous membranes moist. EOMI, PERRLA. NECK: Supple. CHEST: Lungs clear to auscultation. No respiratory distress. HEART: RRR. Pedal pulses present bilat. ABDOMEN: Soft, nontender, nondistended. BS active and present. EXTREMITIES: Normal range of motion. No edema. SKIN: Warm, dry, no rash. NEURO: No focal deficits. Alert and oriented x3. PSYCH: Normal mood and affect. Objective Data Vital Signs Vital Signs: Vital Signs - 24 hr 11/26/23 16:02 11/26/23 16:15 11/26/23 16:16 Temperature 98.0 F Pulse Rate 87 81 81 Respiratory Rate 17 27 H 19 Blood Pressure 129/48 L 125/63 Pulse Oximetry 95 94 95 Oxygen Delivery Room Air 11/26/23 16:17 11/26/23 16:35 11/26/23 16:46 Temperature Pulse Rate 88 77 77 Respiratory Rate 25 H 17 27 H Blood Pressure 136/46 L Pulse Oximetry 94 96 95 Oxygen Delivery 11/26/23 17:00 11/26/23 17:26 11/26/23 17:30 Temperature Pulse Rate 75 70 Respiratory Rate 24 H 21 H Blood Pressure Pulse Oximetry 98 96 Oxygen Delivery 11/26/23 18:44 11/26/23 19:28 11/26/23 21:03 Temperature Pulse Rate 69 64 Respiratory Rate 16 20 Blood Pressure 117/57 L 118/56 L Pulse Oximetry 97 96 Oxygen Delivery Room Air 11/26/23 22:01 11/26/23 22:06 11/27/23 00:00 Temperature 99 F Pulse Rate 69 75 64 Respiratory Rate 18 Blood Pressure 114/53 L Pulse Oximetry 95 Oxygen Delivery 11/27/23 04:32 11/27/23 04:00 11/27/23 09:46 Temperature 97.6 F Pulse Rate 67 66 65 Respiratory Rate 16 Blood Pressure 143/63 H Pulse Oximetry 96 Oxygen Delivery 11/27/23 08:00 11/27/23 08:00 11/27/23 12:00 Temperature Pulse Rate 63 55 L Respiratory Rate Blood Pressure Pulse Oximetry Oxygen Delivery Room Air 11/27/23 14:00 Temperature 98 F Pulse Rate 61 Respiratory Rate 18 Blood Pressure 132/69 Pulse Oximetry 100 Oxygen Delivery Intake/Output Intake/Output: Intake & Output 11/24/23 11/25/23 11/26/23 11/27/23 23:59 23:59 23:59 23:59 Intake Total 50 2010 Output Total 350 Balance 50 1660 Meds/Results Medications: Active Medications Generic Name Dose Route Start Last Admin Trade Name Freq PRN Reason Stop Dose Admin Acetaminophen 650 mg
[2023-11-27] MEDS: cefTRIAXone 2 GM/NS 100 ML 2 GM/100 ML BAG IVPB (17:47)
[2023-11-28] VITALS: PULSE 58
[2023-11-28 04:00] VITALS: PULSE 60
[2023-11-28] MEDS: SODIUM CHLORIDE 0.9% IV 1,000 ML 125 ML IV CONT (05:41)
[2023-11-28] MEDS: AZITHROMYCIN 500 MG/NS 250 ML 500 MG/250 ML BAG 250 MG IVPB (05:41)
[2023-11-28 06:00] VITALS: BP 116/64; PULSE 67; RESP 18; TEMP 36.1; O2SAT 96
[2023-11-28 06:21] LABS: Basophils Percent Auto 0.1 % (0.2-1.2); Eosinophils Percent Auto 0.4 % (0-4.4); Hematocrit 36.1 % (37.0-47.0); Hemoglobin 11.1 g/dL (12.0-15.0); Immature Granulocyte Absolute 0.02 K/mm3 (0.00-0.031); Immature Granulocyte Percent A 0.3 % (0-0.5); Lymphocytes Absolute Auto 1.72 K/mm3 (0.9-3.2); Mean Corpuscular HGB Conc 30.7 g/dl (32-36); Mean Corpuscular Hemoglobin 28.9 pg (26-34); Mean Platelet Volume 10.3 fl (7.4-10.4); Monocytes Absolute Auto 0.6 K/mm3 (0.1-0.6); Monocytes Percent Auto 8.4 % (2.6-8.5); Neutrophils Absolute Auto 5.1 K/mm3 (1.3-6.7); Neutrophils Percent Auto 67.8 % (45.5-73.1); Platelet Count Result 215 k/mm3 (150-375); Red Blood Count 3.84 M/mm3 (4.2-5.4); Red Cell Distribution Width 14.3 % (11.5-14.5); White Blood Count 7.5 K/mm3 (4.5-10.0)
[2023-11-28 06:40] LABS: Anion Gap 10 mmol/L (8-16); Blood Urea Nitrogen 19 mg/dL (7-17); Calcium 9.1 mg/dL (8.4-10.2); Carbon Dioxide 27 mmol/L (22-30); Chloride 104 mmol/L (98-107); Estimated CRCL calculation 71 ml/min; Estimated Glomerular Filt Rate > 60; Glucose 119 mg/dL (65-110); Potassium 3.2 mmol/L (3.4-5.0); Sodium 141 mmol/L (137-145)
[2023-11-28] MEDS: ENOXAPARIN 40 MG/0.4 ML SYRINGE SUB-Q (09:04)
[2023-11-28] MEDS: ATORVASTATIN 20 MG TABLET PO (09:04)
[2023-11-28] MEDS: POTASSIUM CHLORIDE 20 MEQ PACKET (FOR LIQUID) 40 MEQ PO (09:05)
[2023-11-28 09:08] VITALS: PULSE 73
[2023-11-28] MEDS: METOPROLOL SUCCINATE EXT REL 50 MG TABCR PO (09:08)
--- NOTE | 2023-11-28 11:00 | PC.NURSE ---
Mushroom Spawn Maker called to unit to ask if this patient could have a visitor as patient is listed as confidential. Visitor wanted to obtain keys from patient to retrieve dog that was in patient's vehicle. RN caring for patient asked patient about the situation and patient admitted to RN that her dog was locked in her vehicle in the ER parking lot and has been there since admission over 48 hours ago. RN caring for patient obtained patient's keys and this RN called the [place] [employer] at 1101 on 11/28/2023 and informed them of the situation. RN gave keys to fisheries officer Chas and he took patient's keys to the ER to give to a [place] [employer] Assessor. [place] [employer] Officers came up to unit to speak with RN's in regards to situation and then speak with patient. fisheries officer Chas returned keys to patient.
--- NOTE | 2023-11-28 11:33 | WPDNEUROPN ---
Progress Note: A&P Assessment and Plan (1) Transient confusion: Code(s): R41.0 - Disorientation, unspecified Status: Resolved Plan Amaris Butler is a 68 year old female with a history of HTN, HLD, lymphedema presenting for evaluation of a transient episode of memory loss. Work-up so far significant for UTI, which in theory can cause encephalopathy. However, this degree of memory loss is unusual as patient does not remember driving for several hours trying to get home. Other considerations are focal seizure vs transient global amnesia vs TIA. MRI brain is normal. 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 - Follow-up in [facility] Neurology clinic in 3 months Subjective Date/time seen: 11/28/23 11:33 Interval history: Amaris Butler is a 68 year old female with a history of HTN, HLD, lymphedema presenting for evaluation of an episode of confusion/memory impairment. Patient reports for the past two days she has been feeling very tired and sleepy. Yesterday, she was found in her car in a location that was about 50 miles from her house. She had no recollection on how she got there. She also had urinary incontinence. EMS evaluated patient initially and she was found to have normal vitals and glucose. She declined transfer at the time, but eventually came to the ER yesterday to be evaluated. She was AOx3 and at baseline in the ER. CT head was negative. UA concerning for UTI. UDS was not done. She was admitted with IV antibiotics for further evaluation of the episode of concern. 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 She initially went to [facility] but did not get out of her car because she was not feeling well. She decided to drive home (she lives in [place]). Patient has no recollection of driving home. She does not remember crossing the bridge to [place]. She ended up in a small town that is 50 miles from where she lives. She said she was in someone's backyard when the overage shortage and damage clerk knocked on her window and asked her if she was ok. She did not want to be transferred a local hospital which is why she drove back to [place], and then subsequently decided on being evaluated at [place]. Patient reports that she has overactive bladder, so it is not atypical for her to have some incontinence if she cannot get to toilet in time. MRI brain is normal. Review of Systems Review of Systems: All systems reviewed & are unremarkable except as noted in HPI and below Exam Const: General: comfortable and no acute distress HENMT: Mouth: Yes moist mucous membranes Eyes: Pupils: Equal, round and reactive pupils present EOM: EOMs intact bilaterally Resp: Effort & Inspection: normal respiratory effort Skin: General skin exam: normal color Neuro: Other: AOx3, Pupils equal and reactive bilaterally, EOMI, face symmetric, facial sensation intact, tongue protrudes midline, palate midline. Shoulder shrug normal. Strength 5/5 throughout. Sensation intact throughout. FNF normal bilaterally. Language comprehension and fluency intact. Gait deferred. Extrem: General: normal to inspection Psych: Mental Status: mental status grossly normal Affect: normal affect Objective Data Vital Signs Vital Signs: Vital Signs - 24 hr 11/27/23 12:00 11/27/23 14:00 11/27/23 16:00 Temperature 36.6 C Pulse Rate 55 L 61 69 Respiratory Rate 18 Blood Pressure 132/69 Pulse Oximetry 100 Oxygen Delivery 11/27/23 20:00 11/27/23 22:00 11/28/23 00:00 Temperature 36.5 C Pulse Rate 76 67 58 L Respiratory Rate 18 Blood Pressure 140/65 Pulse Oximetry 96 Oxygen Delivery 11/28/23 04:00 11/28/23 06:00 11/28/23 09:08 Temperature 36.1 C L Pulse Rate 60 67 73 Respirat
--- NOTE | 2023-11-28 14:36 | PM.DS ---
DS: Admitting Diagnosis Discharge Date 11/28/23 Admitting Diagnosis AMS DS: Discharge Diagnosis Discharge Diagnosis (1) Transient global amnesia: Code(s): G45.4 - Transient global amnesia Status: Acute Assessment and Plan: CT brain showed Cerebral atherosclerosis with no acute intracranial finding Neuro consulted - outpatient EEG and f/u in 3 month no driving for 3 months or until cleared by neuro MRI normal UDS negative (2) Acute UTI: Code(s): N39.0 - Urinary tract infection, site not specified Status: Acute Assessment and Plan: PO Keflex at d/c as she has concurrent RL cellulitis UA culture negative follows with urologist in [facility] for urge incontinence (3) Transient confusion: Code(s): R41.0 - Disorientation, unspecified Status: Resolved Assessment and Plan: Likely secondary to acute illness (4) Venous stasis dermatitis: Code(s): I87.2 - Venous insufficiency (chronic) (peripheral) Status: Acute Assessment and Plan: Compression stockings swelling and erythema with mild tenderness on RLE US doppler negative for DVT Keflex PO at d/c (5) Lung infiltrate: Code(s): R91.8 - Other nonspecific abnormal finding of lung field Status: Acute Assessment and Plan: Respiratory panel negative CXR showed bibasilar infiltrate and/or atelectasis WBC 7.5 finish course of Zithromax PO BC cultures pending (6) Cellulitis: Code(s): L03.90 - Cellulitis, unspecified Status: Acute Assessment and Plan: recurrent problem RLE swelling, erythema and mild tenderness > left dopplers negative for DVT Keflex PO DS: Summary Hospital Course Hospital Course: Patient is a 68 YO female with PMH of hypertension, dyslipidemia, chronic bilateral lower extremity venous stasis, chronic lymphedema. Patient admitted after she was found in her car in a for location from her house patient has no recollection how she got there. She believes this is due to sleep deprivation as she works nights with little sleep in between. She anxiety and worries constantly about everything. Would benefit from a psych evaluation. Neurology consulted, MRI was negative for acute process. EEG unable to be done here, will order outpatient. Patient not to drive for 3 months or until follow up and cleared by neurology. Will continue AB therapy PO for suspected pneumonia on CT. UA negative. UDS negative. Keflex for cellulitis coverage on right lower leg. Status at Discharge Functional status at discharge: independent ambulation Overall status at discharge: patient is progressing back to baseline Time Spent with Patient Time attestation: Total time spent providing and/or coordinating discharge services: Exam Narrative: GENERAL: Well-appearing, well-nourished, and in no acute distress. HEAD: Normocephalic, atraumatic. ENT: Mucous membranes moist. EOMI, PERRLA. NECK: Supple. CHEST: Lungs clear to auscultation. No respiratory distress. HEART: RRR. Pedal pulses present bilat. ABDOMEN: Soft, nontender, nondistended. BS active and present. EXTREMITIES: Normal range of motion. 1-2+ edema on right LE, redness and warmth. Chronic mild edema on left leg, non-pitting. SKIN: Warm, dry, no rash. NEURO: No focal deficits. Alert and oriented x3. PSYCH: Anxiousl mood and affect. DS: Data Data Completed and Pending Labs on day of discharge: Labs from last 24 hours 11/28/23 06:00 WBC 7.5 RBC 3.84 L Hgb 11.1 L Hct 36.1 L MCV 94.0 MCH 28.9 MCHC 30.7 L RDW 14.3 Plt Count 215 MPV 10.3 Immature Gran % (Auto) 0.3 Neut % (Auto) 67.8 Lymph % (Auto) 23.0 Menard % (Auto) 8.4 Eos % (Auto) 0.4 Baso % (Auto) 0.1 L Lymph # (Auto) 1.72 [place]ard # (Auto) 0.6 Eos # (Auto) 0.0 Baso # (Auto) 0.0 Abs Immat Gran (auto) 0.02 Absolute Neuts (auto) 5.1 Absolute Nucleated RBC 0.0 Nucleated RBC % 0.0 Sodium 141 Potassi
--- NOTE | 2023-11-28 15:22 | PC.NURSE ---
Pt being discharged at this time. Pt reminded to abstain from driving until neurology clears her. Pt has orders for outpatient EEG. Pt verbalizes understanding.
--- NOTE | 2023-12-10 11:24 | PC.NURSE ---
Blood cultures are negative.
== END 2023-11-28 16:30 | disposition home or self-care (01) | DRG 70 ==
LOC: ANHED 19:21 → ANH3MED 20:19
PROVIDERS: Admitting Provider Internal Medicine; Emergency Provider Emergency Medicine; Visit Provider Nurse Practitioner
DX: G45.4 Transient global amnesia (principal); J18.9 Pneumonia, unspecified organism; L03.115 Cellulitis of right lower limb; Z68.41 Body mass index [BMI] 40.0-44.9, adult; I87.2 Venous insufficiency (chronic) (peripheral); R91.8 Other nonspecific abnormal finding of lung field; I10 Essential (primary) hypertension; E78.5 Hyperlipidemia, unspecified; Z20.822 Contact with and (suspected) exposure to COVID-19; E66.9 Obesity, unspecified; N32.81 Overactive bladder; N39.41 Urge incontinence; F41.9 Anxiety disorder, unspecified
CPT/HCPCS: 36415; 70450; 70551; 71046; 80048; 80053; 80307; 81001; 85025; 87040; 87086; 87088; 87637; 93005; 93971; 96365; 96366; 96367; 96375; 99285; A9270; G0378; J0456; J0696; J1650; J2405; J3480; J7030; J7040

== ENCOUNTER 2024-05-31 14:18 | Emergency (ER) | payer SELFPAY ==
[2024-05-31] VITALS (14 sets, daily range): BP systolic 84–162; BP diastolic 42–74; PULSE 64–83; RESP 12–27; TEMP 36.7; O2SAT 96–100
--- NOTE | ~2024-05-31 | US_ITS ---
EXAMINATION: US venous doppler LE RT DATE: 05/31/2024 18:12 INDICATION: Right lower limb pain and swelling. TECHNIQUE: Grayscale ultrasound images without and with compression and Doppler ultrasound images of the right lower extremity veins were obtained. COMPARISON: Ultrasound 11/28/2023 FINDINGS: The visualized portions of right common femoral vein, profunda (deep) femoral vein, femoral vein, pop liteal vein, peroneal veins, posterior tibial veins, and greater saphenous vein outflow are patent. IMPRESSION: 1. No deep venous thrombosis. Reviewed, dictated and finalized at location E.
--- NOTE | 2024-05-31 17:25 | ED.EXTPRO ---
HPI - Extremity Problem General Chief complaint: Extremity Problem,Nontraumatic Stated complaint: swelling, redness right foot Time Seen by Provider: 05/31/24 16:09 History of Present Illness HPI Narrative: Patient is a 68-year-old female presenting with right leg with pain and redness. States that she noticed the right calf felt painful yesterday and today it became red and warm. States that is slightly swollen. States that it feels like prior episodes of cellulitis. No fevers or chills, chest pain, shortness of breath. No further complaints. Related Data Home Medications Medication Instructions Recorded Confirmed atorvastatin 20 mg tablet 20 mg PO DAILY 11/26/23 11/26/23 ergocalciferol (vitamin D2) 1,250 1,250 mcg PO WEEKLY 11/26/23 11/26/23 mcg (50,000 unit) capsule hydrochlorothiazide 25 mg tablet 25 mg PO DAILY 11/26/23 11/26/23 metoprolol succinate 50 mg 50 mg PO DAILY 11/26/23 11/26/23 tablet,extended release 24 hr trandolapril 2 mg tablet 2 mg PO DAILY 11/26/23 11/26/23 Allergies Allergy/AdvReac Type Severity Reaction Status Date / Time sulfamethoxazole Allergy Rash Verified 05/31/24 17:07 [From Bactrim] trimethoprim [From Bactrim] Allergy Rash Verified 05/31/24 17:07 Review of Systems Review of Systems: All systems reviewed & are unremarkable except as noted in HPI and below PMFSH Past Medical History Medical History Cellulitis of right leg History of hyperlipidemia Hypertension Surgical History Surgical History History of bunionectomy Family History Family History Mother Acute myocardial infarction Hypertension Father Renal failure Social History Social History Smoking status: Never smoker Alcohol intake: never Substance use: never Do You Feel Safe in your Home?: Yes Lack of Transportation: No Lack of Food: Never True Current Housing: I Have Housing Concerned About Future Housing: No Difficulty Paying Gas/Electric Bills: No Difficulty Paying for Meds: No Currently Unemployed: No Education: High School Diploma/GED Difficulty w/ Childcare or Family Care: No Gender identity (if verbalized by the patient): Female Spiritual care concerns: No Exam Narrative: GENERAL: well-appearing, nontoxic, no acute distress HEAD: Normocephalic, atraumatic. EYES: PERRLA and EOMI. ENT: Mucous membranes moist. NECK: Supple. CHEST: Clear to auscultation. No respiratory distress. HEART: Regular rate and rhythm ABDOMEN: Soft, nontender, nondistended EXTREMITIES: Normal range of motion. +R calf is erythematous, warm, slightly tender; distal pulses 2+ SKIN: Warm, dry, as above NEURO: Alert and oriented x3. PSYCH: Normal mood and affect. Course Vital Signs Vital signs: Vital Signs Temperature 98.1 F 05/31/24 14:52 Pulse Rate 83 05/31/24 14:52 Respiratory Rate 18 05/31/24 14:52 Blood Pressure 162/71 H 05/31/24 14:52 Pulse Oximetry 98 05/31/24 14:52 Oxygen Delivery Room Air 05/31/24 14:52 Temperature 98.1 F 05/31/24 14:52 Pulse Rate 67 05/31/24 19:01 Respiratory Rate 24 H 05/31/24 19:01 Blood Pressure 113/54 L 05/31/24 19:01 Pulse Oximetry 98 05/31/24 19:01 Oxygen Delivery Room Air 05/31/24 14:52 MDM - Extremity (Nontraumatic) MDM Narrative Medical decision making narrative: 68-year-old female presenting with right calf pain and redness. Vitals stable. Exam remarkable for the above. Doppler study of the right lower extremity reveals no DVT. Will treat the patient for cellulitis with Keflex. Advised close PCP follow-up. Appropriate return precautions given. Patient agreeable with this plan. Discharged in stable condition. Differential Diagnosis Differential diagnosi
[2024-05-31] MEDS: ACETAMINOPHEN 500 MG TABLET 1000 MG PO (17:38)
[2024-05-31] MEDS: IBUPROFEN 600 MG TABLET PO (17:38)
[2024-05-31] MEDS: CEPHALEXIN 500 MG CAPSULE PO (19:03)
== END 2024-05-31 20:29 | disposition home or self-care (01) ==
PROVIDERS: Emergency Provider Emergency Medicine
DX: L03.115 Cellulitis of right lower limb (principal); E78.5 Hyperlipidemia, unspecified; I10 Essential (primary) hypertension; Z79.899 Other long term (current) drug therapy
CPT/HCPCS: 93971; 99284; A9270

== ENCOUNTER 2025-01-24 11:08 | Inpatient (IN) | payer OTHER, MEDICARE, SELFPAY ==
[2025-01-24] VITALS (28 sets, daily range): BP systolic 87–136; BP diastolic 51–89; PULSE 105–183; RESP 15–28; TEMP 36.5–36.9; O2SAT 91–97; BMI 37.5
--- NOTE | ~2025-01-24 | US_ITS ---
BILATERAL LOWER EXTREMITY VENOUS ULTRASOUND Ordering provider: Beth Schwab PA-C History: . edema, elevated dimer . Comparison: None. FINDINGS: RIGHT LOWER EXTREMITY VEINS: --COMMON FEMORAL: Patent and free of thrombus. Normal compressibility, phasic flow and augmentation. --PROXIMAL SUPERFICIAL FEMORAL: Patent and free of thrombus. Normal compressibility, phasic flow and augmentation. --DISTAL SUPERFICIAL FEMORAL: Patent and free of thrombus. Normal compressibility, phasic flow and au gmentation. --POPLITEAL: Patent and free of thrombus. Normal compressibility, phasic flow and augmentation. --POSTERIOR TIBIAL: Patent and free of thrombus. Normal compressibility, phasic flow and augmentation . LEFT LOWER EXTREMITY VEINS: --COMMON FEMORAL: Patent and free of thrombus. Normal compressibility, phasic flow and augmentation. --PROXIMAL SUPERFICIAL FEMORAL: Patent and free of thrombus. Normal compressibility, phasic flow and augmentation. --DISTAL SUPERFICIAL FEMORAL: Patent and free of thrombus. Normal compressibility, phasic flow and au gmentation. --POPLITEAL: Patent and free of thrombus. Normal compressibility, phasic flow and augmentation. --POSTERIOR TIBIAL: Patent and free of thrombus. Normal compressibility, phasic flow and augmentation . IMPRESSION: Negative bilateral lower extremity venous US. No deep vein thrombosis. Reviewed, dictated and finalized at location A. ING MECHANIC
--- NOTE | ~2025-01-24 | XR_ITS ---
XR chest 1V portable Ordering provider: Beth Schwab PA-C History: 69 years Female with . afib with RVR . Comparison: None. FINDINGS: MEDIASTINUM: The cardiac silhouette is not enlarged. Prominent both alvin. LUNGS: No effusions or pneumothorax. Interstitial changes seen bilaterally. OTHER: No free air under the diaphragm. Degenerative changes of the spine. IMPRESSION: Prominent both alvin. Further evaluation with CT is advised. Bilateral interstitial changes which may indicate fibrotic changes versus pneumonitis. Reviewed, dictated and finalized at location A. CIPAL STATISTICAL SCIENTIST IMPRESSION: Prominent both alvin. Further evaluation with CT is advised. Bilateral interstitial changes which may indicate fibrotic changes versus pneum onitis.
--- NOTE | ~2025-01-24 | CT_ITS ---
EXAMINATION: CTA chest PE protocol DATE: 01/24/2025 13:43 INDICATION: Atrial fibrillation with rapid ventricular response. Lower limb swelling. Elevated d-dime r. TECHNIQUE: Computed tomography (CT) pulmonary angiogram of the chest was performed with 100 mL Omnipa que-350 intravenous contrast. Additional 3D reconstructions utilizing coronal maximum intensity proje ction (MIP) were performed. Automated exposure control and iterative reconstruction technique were em ployed. The dose-length product was 732.33 mGy-cm. COMPARISON: None FINDINGS: No pulmonary embolism. Dependent atelectasis in bilateral upper and lower lobes, basilar atelectasis in the right middle lobe along the mildly elevated right hemidiaphragm and additional mild discoid at electasis in the lingula. No pneumonia, pulmonary edema or pleural effusion. Heart size is normal but with left atrial enlargement. No pericardial effusion. Thoracic aorta is normal in caliber with no d issection. No pathologically enlarged thoracic lymphadenopathy. Visualized upper abdomen is unremarka ble. Moderate thoracic spondylosis. T10 hemangioma. IMPRESSION: 1. No pulmonary embolism. 2. Bilateral dependent and basilar atelectasis. No other acute cardiopulmonary disease. 3. Normal heart size but with left atrial enlargement. Reviewed, dictated and finalized at location B. ITION CONSULTANT
--- NOTE | 2025-01-24 11:17 | ECG_ITS ---
Test Date: 2025-01-24 11:20:47 Measurements Intervals [place] Rate: 166 P: 0 NH: 0 QRS: 17 QRSD: 97 T: -83 QT: 254 QTc: 423 Interpretive Statements ATRIAL FIBRILLATION WITH RAPID VENTRICULAR RESPONSE ST DEVIATION AND MODERATE T-WAVE ABNORMALITY, CONSIDER LATERAL ISCHEMIA [-0.1+ mV T WAVE IN I/aVL/V5/V6] ST DEVIATION AND MODERATE T-WAVE ABNORMALITY, CONSIDER INFERIOR ISCHEMIA [-0.1+ mV T WAVE IN II/aVF] No previous ECG available for comparison Electronically Signed On 01-25-2025 10:59:38 HEALTH SAFETY ENGINEER by Mookie Owens M.D.
--- NOTE | 2025-01-24 11:23 | ED_ITS ---
HPI - Arrhythmia/Palpitations General Chief Complaint: Skin/Abscess/Foreign Body <Beth Schwab PA-C - Last Filed: 01/24/25 17:39> Stated Complaint: cellulitis <ALICE Zhang Last Filed: 01/24/25 17:39> Time Seen by Provider: 01/24/25 11:17 <Beth Schwab PA-C - Last Filed: 01/24/25 17:39> Source: patient <ALICE Zhang Last Filed: 01/24/25 17:39> Mode of arrival: ambulatory <ALICE Zhang Last Filed: 01/24/25 17:39> Limitations: no limitations <ALICE Zhang Last Filed: 01/24/25 17:39> History of Present Illness HPI narrative: This is a 69-year-old female that presents to the emergency department for cellulitis to the left lower extremity. Reports she was recently started on Keflex for this. Patient noted to be tachycardic upon arrival. She denies any symptoms. Denies chest pain, shortness of breath, palpitations <Beth Schwab PA-C - Last Filed: 01/24/25 17:39> Related Data Home Medications: Home Medications ?Medication ?Instructions ?Recorded ?Confirmed ?Last Taken ?Type atorvastatin 20 mg tablet 20 mg PO DAILY 11/26/23 01/24/25 01/24/25 History ergocalciferol (vitamin D2) 1,250 1,250 mcg PO WEEKLY 11/26/23 01/24/25 01/13/25 History mcg (50,000 unit) capsule hydrochlorothiazide 25 mg tablet 25 mg PO DAILY 11/26/23 01/24/25 01/24/25 History metoprolol succinate 50 mg 50 mg PO DAILY 11/26/23 01/24/25 01/24/25 History tablet,extended release 24 hr trandolapril 2 mg tablet 2 mg PO DAILY 11/26/23 01/24/25 01/24/25 History cephalexin 500 mg capsule 500 mg PO TID 01/24/25 01/24/25 01/24/25 History <Beth Schwab PA-C - Last Filed: 01/24/25 17:39> Allergies/Adverse Reactions: Allergies Allergy/AdvReac Type Severity Reaction Status Date / Time doxycycline Allergy Unknown Unknown Verified 01/24/25 11:48 Sulfa (Sulfonamide Allergy Unknown Verified 01/24/25 11:48 Antibiotics) sulfamethoxazole (From Allergy Rash Verified 01/24/25 11:48 Bactrim) trimethoprim (From Bactrim) Allergy Rash Verified 01/24/25 11:48 <Beth Schwab PA-C - Last Filed: 01/24/25 17:39> Review of Systems 2 Review of Systems: CONSTITUTIONAL: Denies fever CARDIOVASCULAR: Denies chest pain, palpitations RESPIRATORY: Denies dyspnea. SKIN: Reports redness <ALICE Zhang Last Filed: 01/24/25 17:39> All systems reviewed & are unremarkable except as noted in HPI and below < ALICE Zhang Last Filed: 01/24/25 17:39> [facility] Past Medical History Medical History: Medical History Kidney stone Arthritis History of hyperlipidemia Cellulitis of right leg Hypertension <ALICE Zhang Last Filed: 01/24/25 17:39> Surgical History Surgical History: Surgical History History of bunionectomy <ALICE Zhang Last Filed: 01/24/25 17:39> Family History Family History: Family History Mother Acute myocardial infarction Hypertension Father Renal failure <ALICE Zhang Last Filed: 01/24/25 17:39> Social History Social History: Social History Smoking status: Never smoker Alcohol intake: never Substance use: never Do You Feel Safe in your Home?: Yes Lack of Transportation: No Lack of Food: Never True Current Housing: I Have Housing Concerned About Future Housing: No Difficulty Paying Gas/Electric Bills: No Difficulty Paying for Meds: No Currently Unemployed: No Education: High School Diploma/GED Difficulty w/ Childcare or Family Care: No Gender identity (if verbalized by the patient): Female Spiritual care concerns: No <Beth Schwab PA-C - Last Filed: 01/24/25 17:39> Exam 2 Narrative: GENERAL: Well-appearing, well-nourished, and in no acute distress. HEAD: Normocephalic, atraumatic. EYES: EOMI. ENT: Nares clear, no rhinorrhea or epistaxis. Mucous membranes moist. Oropharynx without tonsillar hypertrophy exudate or other lesions. NECK: Supple. No adenopathy or masses. CHEST: Clear to auscultation. No respiratory distress. No wheezes rales or rhonchi HEART: Tachycardic, irregularly irregular. No murmur heard. Normal peripheral pulses. EXTREMITIES: Normal range of motion. Mild edema to the bilateral lower legs with overlying venous stasis changes. Very mild redness to the right lower extremity. Normal DP pulses SKIN: Warm, dry, no rash. NEURO: No focal deficits. Alert and oriented x3. PSYCH: Normal mood and affect <Beth Schwab PA-C - Last Filed: 01/24/25 17:39> Course Course Emergency Course: patient updated on her workup and need for admission <HARSHAD Zhang - Last Filed: 01/24/25 17:39> CLINICAL PSYCHOLOGIST LICENSED/PA Physician Supervision I agree with midlevel documentation; I performed the medical decision making component of this evaluation. Patient with AFib with RVR, cellulitis. Given dilt + drip; not much improvement so given metop Admitted w/ cards consult <Yumiko Soriano MD - Last Filed: 01/24/25 17:47> Consultations Consultation #1: Spoke with cardiology about patient and workup. Will also give p.o. dose of metoprolol. They will consult <Beth Schwab PA-C - Last Filed: 01/24/25 17:39> Date: 01/24/25 <Beth Schwab PA-C - Last Filed: 01/24/25 17:39> Consultation #2: Spoke with hospitalist about patient and workup who accepts admission < Beth Schwab PA-C - Last Filed: 01/24/25 17:39> Date: 01/24/25 <Beth Schwab PA-C - Last Filed: 01/24/25 17:39> Vital Signs Vital signs: Vital Signs Temperature 97.7 F 01/24/25 11:12 Pulse Rate 166 H 01/24/25 11:12 Respiratory Rate 21 H 01/24/25 11:12 Blood Pressure 112/56 L 01/24/25 11:12 Pulse Oximetry 96 01/24/25 11:12 Oxygen Delivery Room Air 01/24/25 11:12 Temperature 97.7 F 01/24/25 11:12 Pulse Rate 124 H 01/24/25 15:40 Respiratory Rate 22 H 01/24/25 15:40 Blood Pressure 113/89 01/24/25 15:40 Pulse Oximetry 95 01/24/25 15:40 Oxygen Delivery Nasal Cannula 01/24/25 13:09 Oxygen Flow Rate 2 01/24/25 13:09 <Beth Schwab PA-C - Last Filed: 01/24/25 17:39> Vital Signs Temperature 97.7 F 01/24/25 11:12 Pulse Rate 166 H 01/24/25 11:12 Respiratory Rate 21 H 01/24/25 11:12 Blood Pressure 112/56 L 01/24/25 11:12 Pulse Oximetry 96 01/24/25 11:12 Oxygen Delivery Room Air 01/24/25 11:12 Temperature 97.7 F 01/24/25 11:12 Pulse Rate 124 H 01/24/25 15:40 Respiratory Rate 22 H 01/24/25 15:40 Blood Pressure 113/89 01/24/25 15:40 Pulse Oximetry 95 01/24/25 15:40 Oxygen Delivery Nasal Cannula 01/24/25 13:09 Oxygen Flow Rate 2 01/24/25 13:09 <Ymuiko Soriano MD - Last Filed: 01/24/25 17:47> MDM - Arrhythmia/Palpitations MDM Narrative Medical decision making narrative: Patient presents to the emergency department for possible cellulitis to her left lower extremity. Reports she has been on Keflex and does not feel it is improving. Patient swelling with venous stasis changes to the bilateral lower extremities. Maybe mild overlying redness to the right lower leg. Patient in atrial fibrillation with RVR with rates in the 160s to 170s upon arrival. Patient does not report previous history of this. CBC with leukocytosis to 14. Metabolic panel with mild hypokalemia, this was replaced. Bilateral lower extremity venous Doppler without evidence of DVT. CTA chest is without evidence of pulmonary embolism. Shows bilateral atelectasis. No other acute cardiopulmonary disease. Patient given diltiazem bolus, started on diltiazem drip. Continued rates in the 120s to 150s. Then given a dose of metoprolol IV. Spoke with cardiology about patient and workup. Will also give p.o. dose of metoprolol. They will consult. Spoke with hospitalist about patient and workup who accepts admission <Beth Schwab PA-C - Last Filed: 01/24/25 17:39> Differential Diagnosis Differential diagnosis: Likely anxiety, sinus tachycardia, artial fibrillation, artial flutter and supraventricular tachycardia <Beth Schwab PA-C - Last Filed: 01/24/25 17:39> Lab Data Attestation: I reviewed the patient's lab results. <Beth Schwab PA-C - Last Filed: 01/24/25 17:39> Result diagrams: 01/24/25 11:28 01/24/25 11:28 <Beth Schwab PA-C - Last Filed: 01/24/25 17:39> Labs: Lab Results 01/24/25 01/24/25 01/24/25 Range/Units 11:28 11:28 11:28 WBC 14.0 H (4.5-10.0) K/mm3 RBC 4.46 (4.2-5.4) M/mm3 Hgb 13.3 (12.0-15.0) g/dL Hct 39.1 (37.0-47.0) % MCV 87.7 (80-100) fl MCH 29.8 (26-34) pg MCHC 34.0 (32-36) g/dl RDW 13.1 (11.5-14.5) % Plt Count 308 (150-375) k/mm3 MPV 10.3 (7.4-10.4) fl Immature Gran % (Auto) 0.5 (0-0.5) % Neut % (Auto) 84.3 H (45.5-73.1) % Lymph % (Auto) 7.6 L (18.3-44.2) % [place] % (Auto) 7.5 (2.6-8.5) % Eos % (Auto) 0.0 (0-4.4) % Baso % (Auto) 0.1 L (0.2-1.2) % Lymph # (Auto) 1.06 (0.9-3.2) K/mm3 [place] # (Auto) 1.1 H (0.1-0.6) K/mm3 Eos # (Auto) 0.0 (0-0.3) K/mm3 Baso # (Auto) 0.0 (0.0-0.1) K/mm3 Abs Immat Gran (auto) 0.07 H (0.00-0.031) K/mm3 Absolute Neuts (auto) 11.8 H (1.3-6.7) K/mm3 Absolute Nucleated RBC 0.000 (0.0-0.012) K/mm3 Nucleated RBC % 0.0 (0.0-0.2) % ESR Cancelled 106 H PT 14.8 H (11.1-14.7) Seconds INR 1.1 APTT 29.9 (22.3-36.8) Seconds D-Dimer Cancelled 1.59 H Sodium 135 L (137-145) mmol/L Potassium 3.2 L (3.4-5.0) mmol/L Chloride 98 (98-107) mmol/L Carbon Dioxide 23 (22-30) mmol/L Anion Gap 14 H (4-12) mmol/L BUN 30 H D (7-17) mg/dL Creatinine 1.47 H (0.7-1.0) mg/dL Estim Creat Clear Calc 39 ml/min Estimated GFR 35 L (59 - ) Glucose 183 H (65-110) mg/dL Calcium 9.9 (8.4-10.2) mg/dL Magnesium 1.9 (1.6-2.3) mg/dL Total Bilirubin 1.0 (0.2-1.3) mg/dL AST 28 (14-36) U/L ALT 23 (6-35) U/L Alkaline Phosphatase 129 H (38-126) U/L C-Reactive Protein 17.2 H (<1.0) mg/dL NT-Pro-B Natriuret Pep 2310 H (19.9-100) pg/mL Total Protein 8.0 (6.3-8.2) g/dL Albumin 4.3 (3.5-5.1) g/dL <Beth Schwab PA-C - Last Filed: 01/24/25 17:39> Lab Results 01/24/25 01/24/25 01/24/25 Range/Units 11:28 11:28 11:28 WBC 14.0 H (4.5-10.0) K/mm3 RBC 4.46 (4.2-5.4) M/mm3 Hgb 13.3 (12.0-15.0) g/dL Hct 39.1 (37.0-47.0) % MCV 87.7 (80-100) fl MCH 29.8 (26-34) pg MCHC 34.0 (32-36) g/dl RDW 13.1 (11.5-14.5) % Plt Count 308 (150-375) k/mm3 MPV 10.3 (7.4-10.4) fl Immature Gran % (Auto) 0.5 (0-0.5) % Neut % (Auto) 84.3 H (45.5-73.1) % Lymph % (Auto) 7.6 L (18.3-44.2) % [place] % (Auto) 7.5 (2.6-8.5) % Eos % (Auto) 0.0 (0-4.4) % Baso % (Auto) 0.1 L (0.2-1.2) % Lymph # (Auto) 1.06 (0.9-3.2) K/mm3 [place] # (Auto) 1.1 H (0.1-0.6) K/mm3 Eos # (Auto) 0.0 (0-0.3) K/mm3 Baso # (Auto) 0.0 (0.0-0.1) K/mm3 Abs Immat Gran (auto) 0.07 H (0.00-0.031) K/mm3 Absolute Neuts (auto) 11.8 H (1.3-6.7) K/mm3 Absolute Nucleated RBC 0.000 (0.0-0.012) K/mm3 Nucleated RBC % 0.0 (0.0-0.2) % ESR Cancelled 106 H PT 14.8 H (11.1-14.7) Seconds INR 1.1 APTT 29.9 (22.3-36.8) Seconds D-Dimer Cancelled 1.59 H Sodium 135 L (137-145) mmol/L Potassium 3.2 L (3.4-5.0) mmol/L Chloride 98 (98-107) mmol/L Carbon Dioxide 23 (22-30) mmol/L Anion Gap 14 H (4-12) mmol/L BUN 30 H D (7-17) mg/dL Creatinine 1.47 H (0.7-1.0) mg/dL Estim Creat Clear Calc 39 ml/min Estimated GFR 35 L (59 - ) Glucose 183 H (65-110) mg/dL Calcium 9.9 (8.4-10.2) mg/dL Magnesium 1.9 (1.6-2.3) mg/dL Total Bilirubin 1.0 (0.2-1.3) mg/dL AST 28 (14-36) U/L ALT 23 (6-35) U/L Alkaline Phosphatase 129 H (38-126) U/L C-Reactive Protein 17.2 H (<1.0) mg/dL NT-Pro-B Natriuret Pep 2310 H (19.9-100) pg/mL Total Protein 8.0 (6.3-8.2) g/dL Albumin 4.3 (3.5-5.1) g/dL <Yumiko Soriano MD - Last Filed: 01/24/25 17:47> Imaging Data Radiologist's impression: ITS Impressions Venous Doppler Study 01/24/25 12:33 IMPRESSION: Negative bilateral lower extremity venous US. No deep vein thrombosis. Chest X-Ray 01/24/25 13:21 IMPRESSION: Prominent both alvin. Further evaluation with CT is advised. Bilateral interstitial changes which may indicate fibrotic changes versus pneumonitis. Chest CTA 01/24/25 13:50 IMPRESSION: 1. No pulmonary embolism. 2. Bilateral dependent and basilar atelectasis. No other acute cardiopulmonary disease. 3. Normal heart size but with left atrial enlargement. <Beth Schwab PA-C - Last Filed: 01/24/25 17:39> ECG Data EKG #1: ECG completion date: 01/24/25 <Beth Schwab PA-C - Last Filed: 01/24/25 17:39> EKG Interpretation: atrial fibrillation (with RVR) <Beth Schwab PA-C - Last Filed: 01/24/25 17:39> Critical Care Time Critical Care Time Critical Care Time: Yes <Beth Schwab PA-C - Last Filed: 01/24/25 17:39> Total Critical Care Time: 35 <Beth Schwab PA-C - Last Filed: 01/24/25 17:39> Discharge Plan Discharge Clinical Impression: Atrial fibrillation with RVR <Beth Schwab PA-C - Last Filed: 01/24/25 17:39> Patient Disposition: Still a Patient <Beth Schwab PA-C - Last Filed: 01/24/25 17:39> Condition: Improved <Beth Schwab PA-C - Last Filed: 01/24/25 17:39>
[2025-01-24] MEDS: dilTIAZem HCl INJ 25 MG/5 ML VIAL 10 MG IV PUSH ×2 (11:37→11:57)
[2025-01-24] MEDS: SODIUM CHLORIDE 0.9% IV 500 ML 999 ML IV CONT ×2 (11:40→12:29)
[2025-01-24 11:42] LABS: Basophils Percent Auto 0.1 % (0.2-1.2); Hematocrit 39.1 % (37.0-47.0); Hemoglobin 13.3 g/dL (12.0-15.0); Immature Granulocyte Absolute 0.07 K/mm3 (0.00-0.031); Immature Granulocyte Percent A 0.5 % (0-0.5); Lymphocytes Absolute Auto 1.06 K/mm3 (0.9-3.2); Lymphocytes Percent Auto 7.6 % (18.3-44.2); Mean Corpuscular Hemoglobin 29.8 pg (26-34); Mean Corpuscular Volume 87.7 fl (80-100); Mean Platelet Volume 10.3 fl (7.4-10.4); Monocytes Absolute Auto 1.1 K/mm3 (0.1-0.6); Monocytes Percent Auto 7.5 % (2.6-8.5); Neutrophils Absolute Auto 11.8 K/mm3 (1.3-6.7); Neutrophils Percent Auto 84.3 % (45.5-73.1); Platelet Count Result 308 k/mm3 (150-375); Red Blood Count 4.46 M/mm3 (4.2-5.4); Red Cell Distribution Width 13.1 % (11.5-14.5)
--- NOTE | 2025-01-24 11:50 | PC.NURSE ---
Pt bp 87/70, EDP Beth Schwab made aware. She states to administer diltiazem as ordered and give IVF bolus. VS updated.
[2025-01-24 11:54] LABS: INR 1.1; Partial Thromboplastin Time 29.9 Seconds (22.3-36.8); Prothrombin Time 14.8 Seconds (11.1-14.7)
[2025-01-24 11:56] LABS: D Dimer 1.59 ug/mL (<0.48)
[2025-01-24 12:09] LABS: Erythrocyte Sedimentation Rate 106 mm/hr (0-20)
[2025-01-24] MEDS: dilTIAZem 100 MG/100 ML 100 MG/100 ML BAG IV CONT (12:20)
--- OUTSIDE RECORDS SUMMARY | 2025-01-24 12:59 | XMS_ITS | Encounter Summary ---
Author Organization [facility] Address [address] [place] [address] Care Team Providers Care Life Insurance Specialist Name Role Phone Emilia Hernandez V BELT COVERER-FLUXER Primary Care Provi scarlett Edgar Watson MD Primary Care Provider [phone] Emilia Hernandez V BELT COVERER-FLUXER Primary Care Provi scarlett Razia Coles V BELT COVERER-FLUXER Primary Care Provider [phone] Neftaly Valerio MD Primary Care Provider [phone] Encounter Details Date Type Department Care Team (Late st Contact Info) Description 12/01/2018 Telephone [facility] [address] [place] [address] Luis Daniel Paz MD [address] [place] [phone] Social History Tobacco Use Types Packs/Day Years Used Date Smoking Tobacco: Never Smokeless Tobacco: Never Alcohol Use Standard Drinks/Week Comments No 0 (1 standard drink = 0.6 oz pur e alcohol) Sex and Gender Information Value Date Recorded Sex Assigned at Not on file Gender Identity Not on file Sexual Orientation Not on file documented as of this encounter Functional Status Functional Status Response Date of Assess ment Is person deaf or have serious hearing difficult y? No 07/04/2015 Is person blind or have serious difficulty seein g? No 07/04/2015 Does person have serious dif ficulty walking/climbing stairs? No 07/04/2015 Does person have difficulty dressing/bathing? No 07/04/2015 Does person have difficulty doing errands alone? No 07/04/2015 Cognitive Status Response Date of Assessm ent Does person have difficulty concentrating/remembering/making decisions? No 07/04/2015 documented as of this encounter Miscellaneous Notes * Telephone Encounter - Lucille Avina LPN - 12/01/2018 10:39 AM CST Spoke w/ pt. Had questions re: stone prevention and diet. Answered all questions. Info mailed to home R POLISHER documented in this encounter Plan of Treatment Upcoming Encounters Date Type Department Care Team (Late st Contact Info) Description 02/01/2025 1:50 PM CDT Office Visit [facility] - Nephrology [address] [place] [address] [place] [phone] Josie Almonte, V BELT COVERER-FLUXER [address] [place] [address] [place] [address] Roxana Gallardo MD [address] [place] [address] [address]L [place] [address] 02/08/2025 10:30 AM CDT Office Visit [facility] - Urology [address] [place] [address] [address] [place] [address] Josie Almonte, V BELT COVERER-FLUXER [address] [place] [address] [place] [address] 02/15/2025 10:15 AM CDT Office Visit [facility] - Vascular Surgery [address] [place] [address], [place] [address] Margot North MD [address] [place] [address] [address]L [place] [phone] 03/13/2025 8:50 AM CDT Office Visit [facility] - POWERHOUSE MECHANIC HELPER [address] [facility] [address] [place] [phone] Titus Kong MD [address] [place] [address] 03/14/2025 9:00 AM CDT Office Visit [facility] - Ophthalmology [address] [place] [phone] 03/16/2025 8:30 AM CDT Office Visit [facility] - Internal Med [address] [place] [phone] Neftaly Valerio MD [address] [place] [address] 04/20/2025 9:00 AM CDT Office Visit [facility] - Internal Med [address] [place] [phone] Neftaly Valerio MD [address] [place] [address] 05/04/2025 10:00 AM CDT Office Visit [facility] - Rheumatology [address] [place] [phone] Gala Post APRN-[address] [phone] Kenny Braun MD [address] [place] [address] [place] [phone] 06/30/2025 9:40 AM CDT Office Visit [facility] - General Dermatology [address], [facility] [address] [place] [address] Robyn Babcock MD [address] [place] [address] 12/11/2025 9:00 AM WAFER POLISHER Appointment [facility] [address] [facility] [address] [place] [address] documented as of this encounter Visit Diagnoses Not on filedocumented in this encounter Care Teams Life Insurance Specialist Relationship Specialty Start Date End Date Emilia Hernandez, V BELT COVERER-FLUXER PCP - General 04/30/18 06/17/21 Edgar Watson MD [address] DIV [place] [address] PCP - General 06/18/21 07/16/21 Emilia Hernandez, V BELT COVERER-FLUXER [address] [facility] [address] DIV [place] [address] PCP - General 07/17/21 11/12/21 Razia Coles, V BELT COVERER-FLUXER [address] [place] [address] PCP - General 11/13/21 12/07/22 Neftaly Valerio MD [address] [place] [address] PCP - General Internal Medicine 07/18/24 documented as of this encounter
--- OUTSIDE RECORDS SUMMARY | 2025-01-24 12:59 | XMS_ITS | Encounter Summary ---
Author Organization [facility] Health Address [address] [facility] [place] [address] Care Team Providers Care International Bank Manager Name Role Phone Razia Coles Primary Care Provider [phone] Neftaly Valerio MD Primary Care Provider [phone] Reason for Visit * Reason Onset Date Comments Congestion 10/23/2022 Encounter Details Date Type Department Care Team (Late st Contact Info) Description 10/23/2022 Telephone [facility] [address] [place] [address] Razia Coles APRN-CNP [address] [place] [address] Congestion Social History Tobacco Use Types Packs/Day Years Used Date Smoking Tobacco: Never Smokeless Tobacco: Never Alcohol Use Standard Drinks/Week Comments No 0 (1 standard drink = 0.6 oz pur e alcohol) PHQ-2 Answer Date Recorded PHQ2 TOTAL SCORE 0 11/01/2021 Sex and Gender Information Value Date Recorded [...] encounter Miscellaneous Notes * Telephone Encounter - Candice Courtney RN - 10/23/2022 10:53 AM SUPERINTENDENT LANDFILL OPERATIONS Images from the original note were not included. Ira Sorensen- Triage Nurse 33 minutes ago (10:19 AM) RA Pt states she has a bad chest cold/congestion and is wanting to know can [facility] send over some meds to her pharmacy, states the OTC is not working for her. Please advise Spoke to patient. States she has congestion and cough. Has not tested herself for covid. She has only taken a cough suppressant given to her from a co-worker. Unsure of the name. Pt would like telephone appt. Scheduled for tomorrow morning. Pt will take at home covid test prior to appt. Encouraged patient to take OTC decongestant and cough suppressant to help with symptoms. RINTENDENT LANDFILL OPERATIONS documented in this encounter Plan of Treatment Upcoming Encounters Date Type Department Care Team (Late st Contact Info) Description 02/01/2025 1:50 PM CDT Office Visit [facility] - Nephrology [address] [place] [address], [place] [address] Josie Almonte, SHAVING MACHINE OPERATOR-SKY LINE YARDER [address] [place], [place] [address]T [place] [address] Roxana Galalrdo MD [address] [place] [address] 2L [place] [address] 02/08/2025 10:30 AM CDT Office Visit [facility] - Urology [address] [place] [address] [address] [place] [address] Josie Almonte, SHAVING MACHINE OPERATOR-SKY LINE YARDER [address] [place], [place] [address]T [place] [address] 02/15/2025 10:15 AM CDT Office Visit [facility] - Vascular Surgery [address] [place] [address] Margot North MD [address] [place] [address] DIV [place] [address] 03/13/2025 8:50 AM CDT Office Visit [facility] - ORDER SELECTOR [address] [facility] [address] [place] [address] Titsu Kong MD [address] [place] [address] 03/14/2025 9:00 AM CDT Office Visit [facility] - Ophthalmology [address] [place] [address] 03/16/2025 8:30 AM CDT Office Visit [facility] - Internal Med [address] [place] [address] Neftaly Valerio MD [address] [place] [address] 04/20/2025 9:00 AM CDT Office Visit [facility] - Internal Med [address] [place] [address] Neftaly Valerio MD [address] [place] [address] 05/04/2025 10:00 AM CDT Office Visit [facility] - Rheumatology [address] [place] [address] Gala Post APRN-[address] [address] Kenny Braun MD [address] [facility] 2L [place] [address] 06/30/2025 9:40 AM CDT Office Visit [facility] - General Dermatology [address], [address] [place] [address] Robyn Babcock MD [address] [facility] 3L [place] [address] 12/11/2025 9:00 AM SUPERINTENDENT LANDFILL [employer]PERATIONS Appointment [address] [place] [address] documented as of this encounter Visit Diagnoses Not on filedocumented in this encounter Care Teams International Bank Manager Relationship Specialty Start Date End Date Razia Coles APRN-SKY LINE YARDER [address] [place] [phone] PCP - General 11/13/21 12/07/22 Neftaly Valerio MD [address] [place] [address] PCP - General Internal Medicine 07/18/24 documented as of this encounter
--- OUTSIDE RECORDS SUMMARY | 2025-01-24 12:59 | XMS_ITS | Encounter Summary ---
Author Organization [facility] Health Address [address] [facility] [place] [address] Care Team Providers Care Video Rental Clerk Name Role Phone Razia Coles Primary Care Provider [phone] Neftaly Valerio MD Primary Care Provider [phone] Reason for Visit * Reason Onset Date Comments Appointment 06/05/2022 Encounter Details Date Type Department Care Team (Late st Contact Info) Description 06/05/2022 Telephone [facility] [address] [place] [address] Razia Coles APRN-CNP [address] [place] [address] Appointment Social History Tobacco Use Types Packs/Day Years [...] encounter Miscellaneous Notes * Telephone Encounter - Yarelis Lockett - 06/05/2022 3:58 PM CDT Current Provider name: LACEY Reason for call: Patient Amaris Butler called into the [facility] scheduling line requesting to schedule a appointment with . Would the scheduling team reach out to the patient to r/s her bumped appt from 07/25/2022 if possible? Patient Call Back number: [phone] documented in this encounter Plan of Treatment Upcoming Encounters Date Type Department Care Team (Late st Contact Info) Description 02/01/2025 1:50 PM CDT Office Visit [facility] - Nephrology [address] [place] [address], [place] [address] Josie Almonte, POCKET STITCHER-SIPHONER [address] [place] [address] DEPT [place] [address] Roxana Gallardo MD [address] [place] [address] 2L [place] [address] 02/08/2025 10:30 AM CDT Office Visit [facility] - Urology [address] [place] [address] [address] [place] [address] Josie Almonte, POCKET STITCHER-SIPHONER [address] [place] [address] DEPT [place] [address] 02/15/2025 10:15 AM CDT Office Visit [facility] - Vascular Surgery [address] [place] [address], [place] [address] Margot North MD [address] [place] [address] 2L [place] [address] 03/13/2025 8:50 AM CDT Office Visit [facility] - READING RECOVERY TEACHER [address] [facility] [address] [place] [address] Titus Kong MD [address] [place] [address] 03/14/2025 9:00 AM CDT Office Visit [facility] - Ophthalmology [address] [place] [address] 03/16/2025 8:30 AM CDT Office Visit [facility] - Internal Med [address] [place] [address] Neftaly Valerio MD [facility]1 [place] [address] 04/20/2025 9:00 AM CDT Office Visit [facility] - Internal Med [address] [place] [address] Neftaly Valerio MD [address] [place] [address] 05/04/2025 10:00 AM CDT Office Visit [facility] - Rheumatology [address] [place] [address] Gala Post, POCKET STITCHER-[facility] [address] [address] Kenny Braun MD [address] [place] [address] [place] [address] 06/30/2025 9:40 AM CDT Office Visit [facility] - General Dermatology [address], [facility] 200 [place] [address] Robyn Babcock MD [address] [facility] 3L [place] [address] 12/11/2025 9:00 AM EP TECHNOLOGIST Appointment [facility] [address] [facility] [address] [place] [address] documented as of this encounter Visit Diagnoses Not on filedocumented in this encounter Care Teams Video Rental Clerk Relationship Specialty Start Date End Date Razia Coles APRN-SIPHONER [address] [place] [address] PCP - General 11/13/21 12/07/22 Neftaly Valerio MD [address] [place] [address] PCP - General Internal Medicine 07/18/24 documented as of this encounter
--- OUTSIDE RECORDS SUMMARY | 2025-01-24 12:59 | XMS_ITS | Encounter Summary ---
Author Organization [facility] Health Address [address] [facility] [place] [address] Care Team Providers Care Inside Phone Sales Name Role Phone Razia Coles ENEIDA-KILN DRAWER Primary Care Provider [phone] Neftaly Valerio MD Primary Care Provider [phone] Reason for Visit * Reason Onset Date Comments Results 01/22/2022 Encounter Details Date Type Department Care Team (Late st Contact Info) Description 01/22/2022 Telephone [facility] General Dermatology [address] [facility], [place] [address] Robyn Babcock MD [facility]5 [facility] 3 [place] [address] Results Social History Tobacco Use Types Packs/Day Years [...] encounter Miscellaneous Notes * Telephone Encounter - Robyn Babcock MD - 01/22/2022 4:35 PM CST I called pt, mail box is full. Please advice pt that the biopsy is benign. No further treatment needed. RAL ACCOUNTANT * Telephone Encounter - Alejandro Lott - 01/22/2022 2:03 PM CST Pt called today concerning lab results. Said MyChart cannot be accessed. Requests a phone call to discuss. Please advise. RAL ACCOUNTANT documented in this encounter Plan of Treatment Upcoming Encounters Date Type Department Care Team (Late st Contact Info) Description 02/01/2025 1:50 PM CDT Office Visit [facility] - Nephrology [address] [place] [address] [place] [address] Josie Almonte, INDUSTRIAL SERVICES WORKER-KILN DRAWER [address] [place], [place] [address]T [place] [address] Roxana Gallardo MD [address] [place] [address] [place] [address] 02/08/2025 10:30 AM CDT Office Visit [facility] - Urology [facility] [address] [place] [address] Josie Almonte, INDUSTRIAL SERVICES WORKER-KILN DRAWER [address] [place], [place] [address]T [place] [address] 02/15/2025 10:15 AM CDT Office Visit [facility] - Vascular Surgery [address] [place] [address] Margot North MD 12[address] [facility] 2L [place] [address] 03/13/2025 8:50 AM CDT Office Visit [facility] - APPLIANCE REPAIRER [address] [facility] [address] [place] [address] Titus Kong MD [address] [place] [address] 03/14/2025 9:00 AM CDT Office Visit [facility] - Ophthalmology [address] [place] [address] 03/16/2025 8:30 AM CDT Office Visit [facility] - Internal Med [address] [place] [address] Neftaly Valerio MD [address] [place] [address] 04/20/2025 9:00 AM CDT Office Visit [facility] - Internal Med [address] [place] [address] Neftaly Valerio MD [address] [place] [address] 05/04/2025 10:00 AM CDT Office Visit [facility] - Rheumatology [address] [place] [address] Gala Post APRN-[address] [address] Kenny Braun MD [facility]5 [facility] 2L [place] [address] 06/30/2025 9:40 AM CDT Office Visit [facility] - General Dermatology [address], [address] [place] [address] Robyn Babcock MD [address] [facility] 3L [place] [address] 12/11/2025 9:00 AM GENERAL ACCOUNTANT Appointment [facility] [address] [facility] [address] [place] [address] documented as of this encounter Visit Diagnoses Not on filedocumented in this encounter Care Teams Inside Phone Sales Relationship Specialty Start Date End Date Razia Coles APRN-KILN DRAWER [address] [place] [address] PCP - General 11/13/21 12/07/22 Neftaly Valerio MD [address] [place] [address] PCP - General Internal Medicine 07/18/24 documented as of this encounter
--- OUTSIDE RECORDS SUMMARY | 2025-01-24 12:59 | XMS_ITS | Encounter Summary ---
Author Organization [facility] Address [address] [facility] [address] Care Team Providers Care Veneer Press Operator Name Role Phone Emilia Hernandez OVEN UNLOADER-[facility] Primary Care Provi scarlett Edgar Watson MD Primary Care Provider [phone] Emilia Hernandez [facility] Primary Care Provi scarlett Razia Coles [facility] Primary Care Provider [phone] Neftaly Valerio MD Primary Care Provider [phone] Encounter Details Date Type Department Care Team (Late st Contact Info) Description 01/28/2021 Telemedicine [facility] General Internal Medicine [address] [place] [address], [place] [address] Emilia Hernandez, OVEN UNLOADER-[address] [address] Social History Tobacco Use Types Packs/Day Years [...] No 07/04/2015 documented as of this encounter Plan of Treatment Upcoming Encounters Date Type Department Care Team (Late st Contact Info) Description 02/01/2025 1:50 PM CDT Office Visit [facility] - Nephrology [address] [place] [address], [place] [address] Josie Almonte, OVEN UNLOADER-SENIOR DB2 SYSTEMS PROGRAMMER [address] [place] [address] [place] [address] Roxana Gallardo MD [address] [place] [address] 2L [place] [address] 02/08/2025 10:30 AM CDT Office Visit [facility] - Urology [address] [place] [address] Josie Almonte, OVEN UNLOADER-SENIOR DB2 SYSTEMS PROGRAMMER [address] [place] [address] [place] [address] 02/15/2025 10:15 AM CDT Office Visit [facility] - Vascular Surgery [address] [place] [address], [place] [address] Margot North MD [facility]5 [facility] 2L [place] [address] 03/13/2025 8:50 AM CDT Office Visit [facility] - SLATE TRIMMER [address] [facility] [address] [place] [address] Titus Kong MD [address] [place] [address] 03/14/2025 9:00 AM CDT Office Visit [facility] - Ophthalmology [address] [place] [address] 03/16/2025 8:30 AM CDT Office Visit [facility] - Internal Med [address] [place] [address] Neftaly Valerio MD [facility]1 [place] [address] 04/20/2025 9:00 AM CDT Office Visit [facility] - Internal Med [address] [place] [address] Neftaly Valerio MD [facility]1 [place] [address] 05/04/2025 10:00 AM CDT Office Visit [facility] - Rheumatology [address] [place] [phone] Gala Post APRN-[address] [phone] Kenny Braun MD [address] [place] [address] 2L DIV [place] [address] 06/30/2025 9:40 AM CDT Office Visit [facility] - General Dermatology [address], [facility] 200 [place] [address] Robyn Babcock MD [address] [place] [address] 3L DEPT [place] [address] 12/11/2025 9:00 AM ROUGE MIXER Appointment [facility] [address] [place] [address] documented as of this encounter Visit Diagnoses Not on filedocumented in this encounter Care Teams Veneer Press Operator Relationship Specialty Start Date End Date Emilia Hernandez APRN-SENIOR DB2 SYSTEMS PROGRAMMER PCP - General 04/30/18 06/17/21 Edgar Watson MD [address] [facility] 2L [place] [address] PCP - General 06/18/21 07/16/21 Emilia Hernandez APRN-SENIOR DB2 SYSTEMS PROGRAMMER [address] [facility] 2L DIV OF [facility] [place] [address] PCP - General 07/17/21 11/12/21 Razia Colse APRN-SENIOR DB2 SYSTEMS PROGRAMMER [address] [place] [address] PCP - General 11/13/21 12/07/22 Neftaly Valerio MD [address] [place] [address] PCP - General Internal Medicine 07/18/24 documented as of this encounter
--- OUTSIDE RECORDS SUMMARY | 2025-01-24 12:59 | XMS_ITS | Encounter Summary ---
Author Organization [facility] Address [address] [facility] [place] [address] Care Team Providers Care Air Brake Mechanic Name Role Phone Emilia Hernandez WOOL HAT HYDRAULICKER-PUBLIC HEALTH PROGRAM MANAGER Primary Care Provi scarlett Edgar Watson MD Primary Care Provider [phone] Emilia Hernandez WOOL HAT HYDRAULICKER-PUBLIC HEALTH PROGRAM MANAGER Primary Care Provi scarlett Razia Coles WOOL HAT HYDRAULICKER-PUBLIC HEALTH PROGRAM MANAGER Primary Care Provider [phone] Neftaly Valerio MD Primary Care Provider [phone] Reason for Visit * Reason Onset Date Comments HEMOPTYSIS 11/25/2018 Encounter Details Date Type Department Care Team (Late st Contact Info) Description 11/25/2018 Telephone [facility] General Internal Medicine [address] [address] Emilia Hernandez, WOOL HAT HYDRAULICKER-PUBLIC HEALTH PROGRAM MANAGER [address] OF [facility] [place] [address] HEMOPTYSIS Social History Tobacco Use Types Packs/Day Years [...] encounter Miscellaneous Notes * Telephone Encounter - Bhavani Leiva RN - 11/25/2018 5:01 PM CST 1st attempt to contact patient about coughing up blood. Telephone call to patient. Call answered byvoicemail. Left voice mail message requesting call back. Call back phone number provided. F INTERPRETER * Telephone Encounter - Bhavani Leiva RN - 11/25/2018 4:37 PM CST Telephone call from patient to turn machine operator. Patient notified turn machine operator that she was coughing up small amounts of blood in her phlegm and also was having L hip pain. This nurse advised turn machine operator to goahead and schedule the patient for an acute care appointment and that she (the nurse) would call patient back to triage shortly. F INTERPRETER documented in this encounter Plan of Treatment Upcoming Encounters Date Type Department Care Team (Late st Contact Info) Description 02/01/2025 1:50 PM CDT Office Visit [facility] - Nephrology [address] [place] [address], [place] [address] Josie Almonte, WOOL HAT HYDRAULICKER-PUBLIC HEALTH PROGRAM MANAGER [address] [place] [address] DEPT [place] [address] Roxana Gallardo MD [facility]5 [facility] 2L [place] [address] 02/08/2025 10:30 AM CDT Office Visit [facility] - Urology [address] [facility] [address] [place] [address] Josie Almonte, WOOL HAT HYDRAULICKER-PUBLIC HEALTH PROGRAM MANAGER [address] [place] [address] DEPT [place] [address] 02/15/2025 10:15 AM CDT Office Visit [facility] - Vascular Surgery [address] [place] [phone] Margot North MD [address] [place] [address] 2L DIV [place] [address] 03/13/2025 8:50 AM CDT Office Visit [facility] - TALENT DEVELOPMENT MANAGER [address] [facility] [address] [place] [address] Titus Kong MD [address] [place] [address] 03/14/2025 9:00 AM CDT Office Visit [facility] - Ophthalmology [address] [place] [address] 03/16/2025 8:30 AM CDT Office Visit [facility] - Internal Med [address] [place] [address] Neftaly Valerio MD [address] [place] [address] 04/20/2025 9:00 AM CDT Office Visit [facility] - Internal Med [address] [place] [address] Neftaly Valerio MD [address] [place] [address] 05/04/2025 10:00 AM CDT Office Visit [facility] - Rheumatology 1225 [facility], [place] [address] Gala Post APRN-CNP [address] [address] Kneny Braun MD [facility]5 [facility] 2L [place] [address] 06/30/2025 9:40 AM CDT Office Visit [facility]ician Group - General Dermatology [address], [facility] 200 [place] [address] Robyn Babcock MD [address] [place] [address] 3L [place] [address] 12/11/2025 9:00 AM STAFF INTERPRETER Appointment [address] [place] [address] documented as of this encounter Visit Diagnoses Not on filedocumented in this encounter Care Teams Air Brake Mechanic Relationship Specialty Start Date End Date Emilia Hernandez APRN-PUBLIC HEALTH PROGRAM MANAGER PCP - General 04/30/18 06/17/21 Edgar Watson MD [address] [place] [address] 2L DIV [place] [address] PCP - General 06/18/21 07/16/21 Emilia Hernandez APRN-PUBLIC HEALTH PROGRAM MANAGER [address] [place] [address] 2L DIV OF [place] [address] PCP - General 07/17/21 11/12/21 Razia Coles WOOL HAT HYDRAULICKER-PUBLIC HEALTH PROGRAM MANAGER [address] [place] [address] PCP - General 11/13/21 12/07/22 Neftaly Valerio MD [address] [place] [address] PCP - General Internal Medicine 07/18/24 documented as of this encounter
--- OUTSIDE RECORDS SUMMARY | 2025-01-24 12:59 | XMS_ITS | Referral Summary ---
Author Organization [facility] Address [address] [facility] [place] [address] Care Team Providers Care Aerodynamics Engineer Name Role Phone Neftaly Valerio MD Primary Care Provider Source Comments [facility],non-owned Affiliates and Associated Physician Practices is amultiple site organization consisting of ambulatory clinics and hospital sitesin [place], [place], [place] and [place]. This disclosure is being madepursuant to the Care Everywhere program and may not contain all information available regarding this patient. Last updated 18.[facility] Encounters Date Type Department Care Team Description 01/23/2025 Travel 01/22/2025 Telephone [facility] - Internal Med [facility] [place] [address] Melo Orr MD Advice Only; Cellulitis 01/02/2025 Travel 12/26/2024 Telephone [facility] - Internal Med [facility] [place] [address] Neftaly Valerio MD Screening Colonoscopy 12/15/2024 Orders Only [facility] - Internal Med [address] [place] [phone] Neftaly Valerio MD Class 2 severe obesity due to excess calories with serious comorbidity and body mass index (BMI) of 39.0 to 39.9 in adult (HCC) ; Prediabetes 12/12/2024 Telephone [facility] - Internal Med [address] [place] [phone] Neftaly Valerio MD LABS ONLY 12/12/2024 Telephone [facility] - Internal Med [address] [place] [phone] Neftaly Valerio MD Medication Prior Auth Request 12/08/2024 Travel 12/08/2024 10:00 AM MIXING HOUSE OPERATOR Office Visit [facility] - Internal Med [address] [place] [phone] Neftaly Valerio MD Morbid obesity (HCC) (Primary Dx); Lipid screening; Left sciatic nerve pain; Prediabetes; Essential hypertension; Venous insufficiency of both lower extremities 12/06/2024 Travel 12/05/2024 9:00 AM MIXING HOUSE OPERATOR - 12/05/2024 11:59 PM [facility] Hospital Encounter [facility] [address] [facility] [address] [place] [address] Neftaly Valerio MD Discharge Disposition: Home or Self Care 10/27/2024 Travel from Last 3 Months Allergies Active Allergy Reactions Criticality Noted Date Comments Sulfa Drugs Rash Medium 11/22/2019 Medications * Be aware that medications may not be up to date on this document. Alwaysverify current medications with the patient. Medication Sig Dispensed Refills Start Date End Date Status Blood Pressure Monitor MISC Use 1 device once daily as needed 1 Each 06/02/2018 Active Additional Information Patient not taking.Reported on 12/08/2024 ciclopirox (Loprox) 0.77 % gel APPLY TOPICALLY DIRECTED FOR 60 DAYS FOR ACUTE INTERDIGITAL TINEA PEDIS. 02/03/2024 Active ibuprofen (Motrin) 400 MG tablet 06/01/2024 Active cephalexin (Keflex) 500 MG capsule 06/01/2024 Active atorvastatin (Lipitor) 20 MG tablet Take 1 (one) tablet by mouth once daily 90 tablet 1 07/20/2024 Active metoprolol succinate XL 24hr (Toprol XL) 50 MG tablet Take 1 (one) tablet by mouth once daily 90 tablet 1 07/20/2024 Active trandolapril (Mavik) 2 MG tablet Take 1 (one) tablet by mouth once daily 90 tablet 1 07/20/2024 Active vitamin D, ergocalciferol, (Drisdol) 1.25 MG (28410 UT) capsuleIndication s:Vitamin D deficiency Take 1 (one) capsule by mouth every 7 days 12 capsule 1 07/20/2024 Active hydroCHLOROthiazi de (Hydrodiuril) 25 MG tablet Take 1 (one) tablet by mouth once daily 90 tablet 1 07/20/2024 Active vibegron (Gemtesa) 75 MG tablet Take 1 (one) tablet by mouth once daily 90 tablet 2 07/27/2024 Active albuterol HFA (Proventil; Ventolin; Proair) 108 (90 Base) MCG/ACT inhaler Inhale 2 (two) puffs by mouth every 4 hours as needed Active ketoconazole (Nizoral) 2 % cream Apply 1 application every day by topical route as directed for 60 days. 10/19/2023 Active oxyBUTYnin CR 24hr (Ditropan-XL) 10 MG tablet Take 1 (one) tablet by mouth once daily Active tamsulosin (Flomax) 0.4 MG capsule TAKE 1 CAPSULE BY MOUTH ONCE DAILY FOR 2 WEEKS Active Urea 41 % APPLY TO AFFECTED AREA(S) callus sub 2 right sub 5th metbase right and tips of toes 3rd bilateralBY TOPICAL ROUTE 2 TIMES PER DAY AND RUB INUNTIL COMPLETELY ABSORBED 01/26/2024 Active hydrOXYzine HCl (Atarax) 25 MG tablet Take 1 (one) tablet by mouth 3 times daily as needed (anxiety) 30 tablet 12/08/2024 Active tirzepatide (Mounjaro) 2.5 MG/0.5ML injectionIndicati ons:Class 2 severe obesity due to excess calories with serious comorbidity and body mass index (BMI) of 39.0 to 39.9 in adult (HCC) Inject 2.5 (two and one-half) mg subcutaneously every 7 days for 28 days, THEN 5 (five) mg every 7 days for 90 days. 14 mL 12/15/2024 5 Active Active Problems Patient Care Coordination No te Formatting of this note migh t be different from the original. Amaris Butler is coming in today for additional views due to an abnormal screening Small assymetry in the left breast. We need an order for a left diagnostic mammogram and left ltd ultrasound Please. Problem Noted Date Diagnosed Date Left sciatic nerve pain 12/13/2024 Assessment & Plan (12/13/2024 1:51 PM MIXING HOUSE OPERATOR): - NSAIDs and tylenol as needed - Ref to physical therapy - Discussed that is likely at least somewhat contributed to by obesity, weight loss will often be helpful Prediabetes 12/13/2024 Assessment & Plan (12/13/2024 1:53 PM MIXING HOUSE OPERATOR): - Weight related complication - Check A1c - continue lifestyle changes to diet and exercise as able - Recommend GLP-1 see obesity section Preventative health care 12/13/2024 Assessment & Plan (12/13/2024 1:55 PM MIXING HOUSE OPERATOR): The 10-year ASCVD risk score (Alena LENTZ, et al., 2019) is: 9.6% Values used to calculate the score: Age: 69 years Sex: Female Is Non- : No Diabetic: No Tobacco smoker: No Systolic Blood Pressure: 122 mmHg Is BP treated: Yes HDL Cholesterol: 50 mg/dL Total Cholesterol: 201 mg/dL On atorvastatin 20 mg PO qd - Check lipids to see if at goal Bunion 12/08/2024 Venous insufficiency of both lower extremities 0 07/29/2024 Assessment & Plan (12/13/2024 1:58 PM MIXING HOUSE OPERATOR): - Following with vascular surgery Chronic venous stasis dermatitis of both lower e xtremities 07/29/2024 Urgency incontinence 05/02/2022 Multiple benign nevi of uppe r and lower extremities, and trunk 04/12/2019 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 Venous stasis dermatitis of both lower extremiti es 04/12/2019 Kidney stone on left side 11/26/2018 Other microscopic hematuria 11/26/2018 Edema 03/17/2017 Morbid obesity 03/17/2017 Assessment & Plan (12/13/2024 1:57 PM MIXING HOUSE OPERATOR): - Has been trying to lose weight with lifestyle changes including dietary changes and exercise plan without success - C/b L sciatic nerve pain - C/b prediabetes - Discussed GLP-1, patient is interested if able to obtain - Will order tirzepatide, start low dose 2.5 mg per week for 1 month then increase as tolerated Vitamin D deficiency 03/17/2017 Trigger finger of right thumb 09/24/2015 Overview (05/10/2018): Overview: IMO load Essential hypertension 09/17/2015 Assessment & Plan (12/13/2024 1:49 PM MIXING HOUSE OPERATOR): - Good control - Continue meds - Continue HCTZ 25 mg PO qd - Cont metoprolol succ 50 mg PO qd - Cont trandolapril 2mg PO qd - Due for electrolyte/Cr check, ordered today Generalized anxiety disorder 09/17/2015 Endometrial thickening on ultrasound 07/04/2015 Overview (02/20/2018): IMO update 02 21 2018 Postmenopausal bleeding 07/04/2015 History of basal cell carcinoma (BCC) of skin Seborrheic keratoses 03/27/2014 Hypercholesterolemia 11/09/2008 Overview (05/10/2018): Overview: Not a statin candidate by ASCVD risk score. Resolved Problems Problem Noted Date Diagnosed Date Resolved Date Cellulitis of left lower extremity 07/29/2024 12/13/2024 Rash 10/27/2019 11/24/2019 Assessment & Plan (10/27/2019 10:23 AM MIXING HOUSE OPERATOR): Based on appearance, consist with drug rash. Patient denies any new medications. Would not expect reaction of this severity from Bactrim after tolerating previously for 7 days. Based on exam, ok to stop Bactrim--would is healing well. Zyrtec 20mg daily for 3 days then 10mg daily Stop new soap Cellulitis of right lower extremity 10/27/2019 12/13/2024 Assessment & Plan (10/27/2019 10:24 AM MIXING HOUSE OPERATOR): Appears to be healing--ok to stop antibiotics based on exam--if symptoms recur, worsen or if fevers or chills, need to call office immediately Other viral warts 04/12/2019 12/13/2024 Hydronephrosis, left 11/26/2018 025 Hydroureter, left 11/26/2018 12/13/2024 Overview (06/18/2021): Passed urethral stone. Acute kidney injury 11/26/2018 10/27/20 19 Basal cell carcinoma of right upper extremity 10/25/20 18 11/26/2018 Immunizations Name Administration Dates Next Due Covid Moderna primary monova lent 12+ yr 0.5mL 01/06/2022,08/05/2021,07/08/2021 DT 09/17/2024 HepB Unspecified formulation 01/20/2011,12/18/19 11 INFLUENZA VACCINE 08/23/2018 INFLUENZA VACCINE, ADJUVANTE D, QUADR. (FLUAD QUADRIVALENT; 65Y+) (AIIV4) 10/23/2023 INFLUENZA VACCINE, ADJUVANTE D, TRIV. (FLUAD TRIVALENT; 65Y+) (AIIV3) 09/28/2024 INFLUENZA VACCINE, HIGH-DOSE , QUADR. (FLUZONE HIGH-DOSE QUADRIVALENT; 65Y+), 0.7 ML (HD-IIV4) 08/25/2022,11/01/2021 INFLUENZA VACCINE, QUADR. (F LUZONE; FLULAVAL; FLUARIX; AFLURIA QUADRIVALENT; 6MO+), 0.5 ML (IIV4) 08/15/2019 Influenza Intradermal 09/07/2017,08/10/2009 MODERNA SARS-COV-2 COVID-19 VACCINE 0.25ML 01/05 PNEUMOCOCCAL PCV20 CONJ VAC IM 08/25/2022 TDAP (7yrs+) 08/15/2019,11/09/2008 Zoster Hzv Vacc Recombinant Inj Im 12/11/2022, Social History Tobacco Use Types Packs/Day Years Used Date Smoking Tobacco: Never Smokeless Tobacco: Never Alcohol Use Standard Drinks/Week Comments No 0 (1 standard drink = 0.6 oz pur e alcohol) PHQ-2 Answer Date Recorded Patient Health Questionnaire-2 Score 0 12/08/2024 Sex and Gender Information Value Date Recorded Sex Assigned at Not on file Gender Identity Not on file Sexual Orientation Not on file Last Filed Vital Signs Vital Sign Reading Time Taken Comments Blood Pressure 122/65 12/08/2024 10:01 AM MIXING HOUSE OPERATOR Pulse 72 12/08/2024 10:01 AM MIXING HOUSE OPERATOR Temperature 36.7 C (98.1 F) 12/08/2024 10:01 AM MIXING HOUSE OPERATOR Respiratory Rate 18 09/28/2024 9:40 AM MIXING HOUSE OPERATOR Oxygen Saturation 99% 12/08/2024 10:01 AM MIXING HOUSE OPERATOR Inhaled Oxygen Concentration - - Weight 103.4 kg (228 lb) 12/08/2024 10:01 AM MIXING HOUSE OPERATOR Height 162.6 cm (5' 4 ) 12/08/2024 10:01 AM MIXING HOUSE OPERATOR Body Mass Index 39.14 12/08/2024 10:01 AM MIXING HOUSE OPERATOR Functional Status Functional Status Response Date of [...] person have difficulty concentrating/remembering/making decisions? No 07/04/2015 Plan of Treatment Upcoming Encounters Date Type Department Care Team (Late st Contact Info) Description 02/01/2025 1:50 PM CDT Office Visit [facility] - Nephrology [address] [place] [address], [facility] [place] [address] Josie Almonte, BIOLOGY DEPARTMENT CHAIR-SCREENER OPERATOR [address] [facility] [facility] [place] [address] [place] [address] [place] [address] [address]L [place] [address] 02/08/2025 10:30 AM CDT Office Visit [facility] - Urology [address] [place] [address] [address] [place] [address] Josie Almonte, BIOLOGY DEPARTMENT CHAIR-SCREENER OPERATOR [address] [place], [place] [address]T [place] [address] 02/15/2025 10:15 AM CDT Office Visit [facility] - Vascular Surgery [address] [place] [phone] Margot North MD [address] [place] [address] [place] [address] 03/13/2025 8:50 AM CDT Office Visit [facility] - POLICE DISPATCHER [address] [facility] [address] [place] [phone] Titus Kong MD [address] [place] [address] 03/14/2025 9:00 AM CDT Office Visit [facility] - Ophthalmology [address] [place] [phone] 03/16/2025 8:30 AM CDT Office Visit [facility] - Internal Med [address] [place] [phone] Neftaly Valerio MD [address] [place] [address] 04/20/2025 9:00 AM CDT Office Visit [facility] - Internal Med [address] [place] [phone] Neftaly Valerio MD [address] [place] [address] 05/04/2025 10:00 AM CDT Office Visit [facility] - Rheumatology [address] [place] [phone] Gala Post APRN-[address] [phone] Kenny Braun MD [address] [place] [address] 06/30/2025 9:40 AM CDT Office Visit [facility] - General Dermatology [address] [place] [address] Robyn Babcock MD [address] [place] [address] 12/11/2025 9:00 AM MIXING HOUSE OPERATOR Appointment [facility] [address] [place] [address] Medical Devices Implanted Type Area Laundry Operator Wash Room Device Identifier Shelf Expiration Date Model / Serial / Lot Stent Uret 6fr 22cm Pgtl Crv Tpr Tip Implanted:Qty: 1 on 11/27/2018 by Luis Daniel Paz MD at [facility] Left: Ureter [employer] 08/19/2021 [id number] / / [id number] Procedures Procedure Name Priority Date/Time Associated Diagnosis Comments HEMOGLOBIN A1C Routine 12/09/2024 12:00 PM MIXING HOUSE OPERATOR Morbid obesity (HCC) Prediabetes Essential hypertension LIPID PROFILE Routine 12/09/2024 12:00 PM MIXING HOUSE OPERATOR Lipid screening CBC W AUTO DIFFERENTIAL Routine 12/09/2024 12:00 PM MIXING HOUSE OPERATOR Morbid obesity (HCC) Essential hypertension COMPREHENSIVE METABOLIC PANEL Routine 12/09/2024 12:00 PM MIXING HOUSE OPERATOR Morbid obesity (HCC) Essential hypertension MAMMO BILAT SCREENING W JAVAN Routine 12/05/2024 10:21 AM MIXING HOUSE OPERATOR Visit for screening mammogram HEPATITIS C AB SCREEN RFLX NAAT QUANT STAT 11/26/2018 2:10 PM MIXING HOUSE OPERATOR DEXA BONE DENSITY AXIAL SKELETON Routine 01/04/2014 9:48 AM MIXING HOUSE OPERATOR from Last 3 Months or Most Recently Relevant to Health Maintenance Results * (ABNORMAL) HEMOGLOBIN A1C (12/09/2024 12:00 PM MIXING HOUSE OPERATOR) Hemoglobin A1c 5.8(H) 4.8 - 5.6 % [facility] INSURANCE BILL Comment: Prediabetes: 5.7 - 6.4 Diabetes: >6.4 Glycemic control for adults with diabetes: <7.0 Blood BLOOD SPECIMEN / Unknown 12/09/2024 12:00 PM MIXING HOUSE OPERATOR 12/09/2024 Narrative [facility] INSURANCE BILL - 12/10/2024 9:09 AM MIXING HOUSE OPERATOR Performed at: - [address] [id number] Foam Gun Operator: Amadou Mckeon PhD, Phone: [phone] Neftaly Valerio MD LAB - CHEMISTRY KRIS MAC [facility] INSURANCE BILL [address] [place] [address] * CBC WITH DIFFERENTIAL (12/09/2024 12:00 PM MIXING HOUSE OPERATOR) Pathologist [facility] WBC 8.9 3.4 - 10.8 x10E3/uL [facility] INSURANCE BILL RBC 4.35 3.77 - 5.28 x10E6/uL [facility] INSURANCE BILL Hemoglobin 13.0 11.1 - 15.9 g/dL [facility] INSURANCE BILL Hematocrit 40.0 34.0 - 46.6 % [facility] INSURANCE BILL MCV 92 79 - 97 fL [facility] INSURANCE BILL MCH 29.9 26.6 - 33.0 pg [facility] INSURANCE BILL MCHC 32.5 31.5 - 35.7 g/dL [facility] INSURANCE BILL RDW 12.9 11.7 - 15.4 % [facility] INSURANCE BILL Platelet Count 306 150 - 450 x10E3/uL [facility] INSURANCE BILL Granulocytes % 69 Not Estab. % [facility] INSURANCE BILL Lymphocytes % 23 Not Estab. % [facility] INSURANCE BILL Monocytes % 7 Not Estab. % [facility] INSURANCE BILL Eosinophils % 1 Not Estab. % [facility] INSURANCE BILL Basophils % 0 Not Estab. % [facility] INSURANCE BILL Granulocytes Absolute 6.1 1.4 - 7.0 x10E3/uL [facility] INSURANCE BILL Lymphocytes Absolute 2.1 0.7 - 3.1 x10E3/uL [facility] INSURANCE BILL Monocytes Absolute 0.6 0.1 - 0.9 x10E3/uL [facility] INSURANCE BILL Eosinophils Absolute 0.1 0.0 - 0.4 x10E3/uL [facility] INSURANCE BILL Basophils Absolute 0.0 0.0 - 0.2 x10E3/uL [facility] INSURANCE BILL Immature Granulocytes 0 Not Estab. % [facility] INSURANCE BILL Immature Granulocytes Absolute 0.0 0.0 - 0.1 x10E3/uL [facility] INSURANCE BILL Blood BLOOD SPECIMEN / Unknown 12/09/2024 12:00 PM MIXING HOUSE OPERATOR 12/09/2024 Narrative [facility] INSURANCE BILL - 12/10/2024 9:09 AM MIXING HOUSE OPERATOR Performed at: - [address] [id number] Foam Gun Operator: Amadou Mckeon PhD, Phone: [phone] Neftaly Valerio MD LAB - HEMATOLOGY ORD ERABLES [facility] INSURANCE BILL [address] [place] [address] * (ABNORMAL) COMPREHENSIVE METABOLIC PANEL (12/09/2024 12:00 PM MIXING HOUSE OPERATOR) Glucose 121(H) 70 - 99 mg/dL [facility] INSURANCE BILL BUN 21 8 - 27 mg/dL [facility] INSURANCE BILL Creatinine 0.91 0.57 - 1.00 mg/dL [facility] INSURANCE BILL eGFR by CKD-EPI 69 >59 mL/min/1.7 3 [facility] INSURANCE BILL BUN/Creatinine Ratio 23 12 - 28 [facility] INSURANCE BILL Sodium 143 134 - 144 mmol/L [facility] INSURANCE BILL Potassium 3.9 3.5 - 5.2 mmol/L [facility] INSURANCE BILL Chloride 105 96 - 106 mmol/L [facility] INSURANCE BILL CO2 22 20 - 29 mmol/L [facility] INSURANCE BILL Calcium 10.0 8.7 - 10.3 mg/dL [facility] INSURANCE BILL Protein Total 6.8 6.0 - 8.5 g/dL [facility] INSURANCE BILL Albumin 4.2 3.9 - 4.9 g/dL [facility] INSURANCE BILL Globulin Total 2.6 1.5 - 4.5 g/dL [facility] INSURANCE BILL Bilirubin Total 0.4 0.0 - 1.2 mg/dL [facility] INSURANCE BILL Alkaline Phosphatase 117 44 - 121 IU/L [facility] INSURANCE BILL AST 17 0 - 40 IU/L [facility] INSURANCE BILL ALT 16 0 - 32 IU/L [facility] INSURANCE BILL Blood BLOOD SPECIMEN / Unknown 12/09/2024 12:00 PM MIXING HOUSE OPERATOR 12/09/2024 Narrative [facility] INSURANCE BILL - 12/11/2024 7:07 AM MIXING HOUSE OPERATOR Performed at: [address] [id number] Foam Gun Operator: Amadou Mckeon PhD, Phone: [phone] Neftaly Valerio MD LAB - CHEMISTRY KRIS MAC Performing Organization Address [facility] de Phone Number [facility] INSURANCE BILL [address] [place] [address] * (ABNORMAL) LIPID PROFILE (12/09/2024 12:00 PM MIXING HOUSE OPERATOR) [facility] Cholesterol 201(H) 100 - 199 mg/dL [facility] INSURANCE BILL Triglycerides 388(H) 0 - 149 mg/dL [facility] INSURANCE BILL HDL Cholesterol 50 >39 mg/dL [facility] INSURANCE BILL VLDL Calculated 63(H) 5 - 40 mg/dL [facility] INSURANCE BILL LDL Calculated 88 0 - 99 mg/dL [facility] INSURANCE BILL Blood BLOOD SPECIMEN / Unknown 12/09/2024 12:00 PM MIXING HOUSE OPERATOR 12/09/2024 Narrative [facility] INSURANCE BILL - 12/10/2024 3:07 PM MIXING HOUSE OPERATOR Performed at: [address] [id number] Foam Gun Operator: Amadou Mckeon PhD, Phone: [phone] Neftaly Valerio MD LAB - CHEMISTRY KRIS MAC Performing Organization Address [facility] de Phone Number [facility] INSURANCE BILL [address] [place] [address] * Mammo Bilat Screening W Javan (12/05/2024 10:21 AM MIXING HOUSE OPERATOR) Anatomical Region Laterality Modality Breast Bilateral Mammography 12/05/2024 2:10 PM MIXING HOUSE OPERATOR Impressions 12/05/2024 2:18 PM MIXING HOUSE OPERATOR IMPRESSION: No mammographic evidence of malignancy in either breast. ASSESSMENT: BIRADS Category 1: Negative mammogram. RECOMMENDATION: Bilateral screening mammogram in one year. Thank you for allowing us to participate in the care of your patient. [facility] utilizes [employer] as a reminder system to notify patients of their next recommended mammogram. > Interpreting Provider: Vanessa Vazquez MD on 12/05/2024 2:18 PM Narrative 12/05/2024 2:18 PM MIXING HOUSE OPERATOR EXAMINATION: Digital screening mammogram. Low-dose full-field digital breast tomosynthesis examination was performed with synthetic 2D images. Computer assisted detection was utilized. DATE: 12/05/2024 10:33 AM PRIOR: 12/04/2023 and prior mammograms dating back to 2013. BREAST PARENCHYMAL DENSITY: There are scattered areas of fibroglandular density. FINDINGS: No suspicious masses, areas of architectural distortion or microcalcifications are evident on synthetic 2D mammogram or tomosynthesis images. There has been no significant interval change since the prior examination. Neftaly Valerio MD MAMMO ORDERABLES * HEPATITIS C AB SCREEN RFLX NAAT QUANT (11/26/2018 2:10 PM MIXING HOUSE OPERATOR) Hepatitis C Antibody Non-react muna Non-reac tive 11/26/2018 2:57 PM MIXING HOUSE OPERATOR [facility] Comment: Hepatitis C Antibody screen indicates no serologic evidence of past or current infection with Hepatitis C Virus. Patients with unexplained liver disease who are immunocompromised or suspected of having acute Hepatitis C infection may benefit from Nucleic Acid Test (CHELI) for Hepatitis C Viral RNA to confirm Hepatitis C status. Blood BLOOD SPECIMEN / Unknown Venipuncture / Unknown 11/26/2018 2:10 PM MIXING HOUSE OPERATOR 11/26/2018 2:15 PM MIXING HOUSE OPERATOR Joycelyn Mann BIOLOGY DEPARTMENT CHAIR-SCREENER OPERATOR LAB - CHEMISTRY ORDERABLES [address] [phone] * DEXA BONE DENSITY AXIAL SKELETON (01/04/2014 9:48 AM MIXING HOUSE OPERATOR) Anatomical Region Laterality Modality Other Narrative 01/04/2014 3:43 PM MIXING HOUSE OPERATOR Examination: Dual energy x-ray absorptiometry of the lumbar spine and hip. Clinical Indication: Postmenopausal, fracture right foot. Findings: Detailed data from the exam is sent separately to the ordering physician and is also available on [email or web address], the Radiology Department's computerized picture archive system SUMMARY: No prior study available for comparison. BONE MINERAL DENSITY (BMD) left hip: Normal; T score -0.9 BONE MINERAL DENSITY (BMD) lumbar spine (L1-4): Normal; T score 0.1 Definitions: T-score = Standard Deviation Normal: A value for bone mineral density (BMD) within 1 standard deviation of the young adult reference mean. (T-score above -1) Low bone mass (osteopenia): A value for bone mineral density(BMD) more than 1 standard deviation below the young adult mean, but less than 2.5 standard deviations below the young adult mean. ( T-score between -1 and -2.5) Osteoporosis: A value for bone mineral density 2.5 standard deviations or more below the young adult mean. ( T-score at or below -2.5) Severe osteoporosis: Osteoporosis + the presence of one or more fragility fractures. Please note that T-score values are important in determining increased risk for fractures. The T-score represents the standard deviation above or below the mean bone mineral density for young adults. With each -1 standard deviation decrease in bone mineral density, the risk for fracture doubles exponentially. A T-score of -1 will double the risk , and -2 will be 4 times the risk. This report was approved by Ernst Cervantes M.D. on 01/04/2014 3:22 PM . IDr. AFSANEH D.O. have personally reviewed and interpreted this examination/study. This report was electronically signed by AFSANEH MCFADDEN D.O. on 01/04/2014 3:43 PM . Procedure Note Afsaneh Mcfadden, DO - 02/20/2018 Examination: Dual energy x-ray absorptiometry of the lumbar spine andhip. Clinical Indication: Postmenopausal, fracture right foot. Findings: Detailed data from the exam is sent separately to the orderingphysician and is also available on [email or web address], the Radiology Department'[employer] picture archive system SUMMARY: No prior study available for comparison. BONE MINERAL DENSITY (BMD) left hip: Normal; T score -0.9 BONE MINERAL DENSITY (BMD) lumbar spine (L1-4): Normal; T score 0.1 Definitions: T-score = Standard Deviation Normal: A value for bone mineral density (BMD) within 1 standard deviationof the young adult reference mean. (T-score above -1) Low bone mass (osteopenia): A value for bone mineral density(BMD) morethan 1 standard deviation below the young adult mean, but less than 2.5standard deviations below the young adult mean. ( T-score between -1 and-2.5) Osteoporosis: A value for bone mineral density 2.5 standard deviations ormore below the young adult mean. ( T-score at or below -2.5) Severe osteoporosis: Osteoporosis + the presence of one or more fragilityfractures. Please note that T-score values are important in determining increasedrisk for fractures. The T-score represents the standard deviation above orbelow the mean bone mineral density for young adults. With each -1 standard deviation decrease in bone mineral density, the risk for fracture doubles exponentially. A T-score of-1 will double the risk , and -2 will be 4 times the risk. This report was approved by Ernst Cervantes M.D. on 01/04/2014 3:22 PM . IDr. AFSANEH D.O. have personally reviewed and interpreted thisexamination/study. This report was electronically signed by AFSANEH MCFADDEN D.O. on 01/04/20143:43 PM . Emilia Hernandez APRN-SCREENER OPERATOR DEXA ORDERA BLES from Last 3 Months or Most Recently Relevant to Health Maintenance Administered Medications Advance Directives * Full Code (Latest Code Status on File) Date Activated Date Inactivated Comments 11/26/2018 5:01 PM 11/27/2018 5:02 PM Care Teams Aerodynamics Engineer Relationship Specialty Start Date End Date Neftaly Valerio MD [facility] [place] [address] PCP - General Internal Medicine 07/18/24
--- OUTSIDE RECORDS SUMMARY | 2025-01-24 12:59 | XMS_ITS | Referral Summary ---
Author Organization [facility] Address [facility] [place] [address] Care Team Providers Care Crate Tier Name Role Phone Emilia Hernandez NP Primary Care Provider + Allergies Active Allergy Reactions Criticality Noted Date Comments Unclassified Drug Rash Medium 11/22/2019 Medications metoprolol XL (TOPROL-XL) 50 mg extended release tablet Take 50 mg by mouth daily 05/07/2020 Active hydroCHLOROthia zide (HYDRODIURIL) 25 mg tablet Take 25 mg by mouth daily 12/30/2020 Active trandolapriL (MAVIK) 2 mg tablet Take 2 mg by mouth daily 01/13/2021 Active atorvastatin (LIPITOR) 20 mg tablet Take 20 mg by mouth daily 04/13/2021 Active ergocalciferol (VITAMIN D) 50,000 unit capsule TAKE 1 CAPSULE BY MOUTH ONCE A WEEK 04/13/2021 Active Active Problems Problem Noted Date Diagnosed Date Mixed hyperlipidemia 05/13/2021 Lipid screening 02/26/2021 Other chest pain 02/25/2021 Essential hypertension 02/25/2021 BMI 40.0-44.9, adult 02/25/2021 Social History Tobacco Use Types Packs/Day Years Used Date Smoking Tobacco: Never Smokeless Tobacco: Never Personal Safety Answer Date Recorded Getting School Help Needed Not on file 01/23 Comments Unknown Sex and Gender Information Value Date Recorded Sex Assigned at Not on file Legal Sex Female 3:06 PM CDT Gender Identity Not on file Sexual Orientation Not on file Last Filed Vital Signs Vital Sign Reading Time Taken Comments Blood Pressure 120/66 01/20/2022 9:02 AM DEALER SALES REP Pulse 75 01/20/2022 9:02 AM DEALER SALES REP Temperature - - Respiratory Rate - - Oxygen Saturation 95% 01/20/2022 9:02 AM DEALER SALES REP Inhaled Oxygen Concentration - - Weight 106.6 kg (235 lb) 01/20/2022 9:02 AM DEALER SALES REP Height 162.6 cm (5' 4 ) 01/20/2022 9:02 AM DEALER SALES REP Body Mass Index 40.34 01/20/2022 9:02 AM DEALER SALES REP Plan of Treatment Not on file Insurance [facility] CHOICE PLUS Care Teams Crate Tier Relationship Specialty Start Date End Date Emilia Hernandez NP [address] [place] [address] PCP - General Nurse Practitioner 01/28/21
--- OUTSIDE RECORDS SUMMARY | 2025-01-24 12:59 | XMS_ITS | Clinical Summary ---
Author Organization [facility] [place] Address [facility] [place] [address] Care Team Providers Care Mortgage Underwriter Name Role Phone Emilia Hernandez NP Primary [...] Essential hypertension 02/25/2021 BMI 40.0-44.9, adult 02/25/2021 Surgical History Surgery Date Site/Laterality Comments BUNIONECTOMY Medical History Medical History Date Comments Cellulitis Hyperlipidemia Hypertension Family History Medical History Relation Name Comments Kidney failure Father Heart attack Mother Aneurysm Sister Relation Name Status Comments Father (Age 73) Mother (Age 68) Sister (Age 68) Social History Tobacco Use Types Packs/Day Years Used Date Smoking Tobacco: Never Smokeless Tobacco: Never Personal Safety Answer Date Recorded Getting School Help Needed Not on file 01/23 Comments Unknown Sex and Gender Information Value Date Recorded Sex Assigned at Not on file Legal Sex Female 3:06 PM CDT Gender Identity Not on file Sexual Orientation Not on file Obstetrics History Last Filed Vital Signs Vital Sign Reading Time Taken Comments Blood Pressure 120/66 01/20/2022 9:02 AM TANK CAR REPAIRER Pulse 75 01/20/2022 9:02 AM TANK CAR REPAIRER Temperature - - Respiratory Rate - - Oxygen Saturation 95% 01/20/2022 9:02 AM TANK CAR REPAIRER Inhaled Oxygen Concentration - - Weight 106.6 kg (235 lb) 01/20/2022 9:02 AM TANK CAR REPAIRER Height 162.6 cm (5' 4 ) 01/20/2022 9:02 AM TANK CAR REPAIRER Body Mass Index 40.34 01/20/2022 9:02 AM TANK CAR REPAIRER Plan of Treatment Not on file Insurance Care Teams Mortgage Underwriter Relationship Specialty Start Date End Date Emilia Hernandez NP [address] [place] [address] PCP - General Nurse Practitioner 01/28/21
--- OUTSIDE RECORDS SUMMARY | 2025-01-24 12:59 | XMS_ITS | Encounter Summary ---
Author Organization [facility] Address [address] [facility] [place] [address] Care Team Providers Care Clinical Pharmacy Manager Name Role Phone Emilia Hernandez LIFESTYLE BLOCK FARMER-ASSEMBLER UNIT Primary Care Provi scarlett Edgar Watson MD Primary Care Provider [phone] Emilia Hernandez LIFESTYLE BLOCK FARMER-ASSEMBLER UNIT Primary Care Provi scarlett Razia Coles LIFESTYLE BLOCK FARMER-ASSEMBLER UNIT Primary Care Provider [phone] Neftaly Valerio MD Primary Care Provider [phone] Reason for Visit * Reason Onset Date Comments Future Appointment 02/09/2020 Encounter Details Date Type Department Care Team (Late st Contact Info) Description 02/09/2020 Telephone [facility] General Internal Medicine [address] [address] Emilia Hernandez, LIFESTYLE BLOCK FARMER-ASSEMBLER UNIT [address] OF [facility] [place] [phone] Future Appointment Social History Tobacco Use Types Packs/Day [...] encounter Miscellaneous Notes * Telephone Encounter - Jany Pitts, RN - 02/09/2020 8:55 AM CDT Calling back about appt next week Advised why we are suggesting moving it but she thinks that is age discrimination After I explained increased risk for older population Agreed to move appt Transferred to [facility] documented in this encounter Plan of Treatment Upcoming Encounters Date Type Department Care Team (Late st Contact Info) Description 02/01/2025 1:50 PM CDT Office Visit [facility] - Nephrology [address] [place] [address], [place] [address] Josie Almonte, LIFESTYLE BLOCK FARMER-ASSEMBLER UNIT [address] [place] [address] [place] [address] Roxana Gallardo MD [address] [place] [address] 2L [place] [address] 02/08/2025 10:30 AM CDT Office Visit [facility] - Urology [facility] [facility] [address] [place] [address] Josie Almonte, LIFESTYLE BLOCK FARMER-ASSEMBLER UNIT [address] [place], [place] [address]T [place] [address] 02/15/2025 10:15 AM CDT Office Visit [facility] - Vascular Surgery [address] [place] [address], [place] [address] Margot North MD [address] [place] [address] 2L [place] [phone] 03/13/2025 8:50 AM CDT Office Visit [facility] - R&D ENGINEER [address] [facility] [address] [place] [phone] Titus Kong MD [address] [place] [address] 03/14/2025 9:00 AM CDT Office Visit [facility] - Ophthalmology [address] [place] [address] 03/16/2025 8:30 AM CDT Office Visit [facility] - Internal Med [address] [place] [address] Neftaly Valerio MD [address] [place] [address] 04/20/2025 9:00 AM CDT Office Visit [facility] - Internal Med [address] [place] [address] Neftaly Valerio MD [address] [place] [address] 05/04/2025 10:00 AM CDT Office Visit [facility] - Rheumatology [address] [place] [phone] Gala Post APRN-[address] [phone] Kenny Braun MD [address] [place] [address] 2L [place] [address] 06/30/2025 9:40 AM CDT Office Visit [facility] - General Dermatology [address] [place] [phone] Robyn Babcock MD [address] [facility] 3L [place] [address] 12/11/2025 9:00 AM HOSPITAL NURSE Appointment [place] [address] [facility] [address] [place] [address] documented as of this encounter Visit Diagnoses Not on filedocumented in this encounter Care Teams Clinical Pharmacy Manager Relationship Specialty Start Date End Date Emilia Hernandez, LIFESTYLE BLOCK FARMER-ASSEMBLER UNIT PCP - General 04/30/18 06/17/21 Edgar Watson MD [address] [facility] 2L DIV [place] [address] PCP - General 06/18/21 07/16/21 Emilia Hernandez, LIFESTYLE BLOCK FARMER-ASSEMBLER UNIT [address] [facility] 2L DIV [place] [address] PCP - General 07/17/21 11/12/21 Razia Coles, LIFESTYLE BLOCK FARMER-ASSEMBLER UNIT [address] [place] [address] PCP - General 11/13/21 12/07/22 Neftaly Valerio MD [address] [place] [address] PCP - General Internal Medicine 07/18/24 documented as of this encounter
--- OUTSIDE RECORDS SUMMARY | 2025-01-24 12:59 | XMS_ITS | Encounter Summary ---
Author Organization [facility] Address [address] [facility] [place] [address] Care Team Providers Care Egg Setter Name Role Phone Emilia Hernandez MARKET RESEARCH WORKER-SPECTROGRAPHER Primary Care Provi scarlett Edgar Watson MD Primary Care Provider [phone] Emilia Hernandez MARKET RESEARCH WORKER-SPECTROGRAPHER Primary Care Provi scarlett Razia Coles MARKET RESEARCH WORKER-SPECTROGRAPHER Primary Care Provider [phone] Neftaly Valerio MD Primary Care Provider [phone] Reason for Visit * Reason Onset Date Comments Med Question 06/02/2018 Med Question 06/03/2018 1st attempt to c ontact pt LM Encounter Details Date Type Department Care Team (Late st Contact Info) Description 06/02/2018 Telephone [facility] General Internal Medicine [address] [address] Emilia Hernandez, MARKET RESEARCH WORKER-SPECTROGRAPHER [address] OF [facility] [place] [address] Med Question; Med Question (1st attempt to contact pt LM) Social History Tobacco Use Types Packs/Day Years [...] encounter Miscellaneous Notes * Telephone Encounter - Kathleen Medina - 06/04/2018 1:25 PM CDT Spoke with patient and notified patient of providers message and patient verbalized understanding. Patient reports that she is picking up medication today. ? TERRY Hernandez's Message It is fine for her to wait till pharmacy gets it in. ? Please ask her what question she has about this. ? Emilia Hernandez NP * Telephone Encounter - Kathleen Medina - 06/03/2018 2:30 PM CDT 1st attempt to contact patient and notify that ok to wait till medication is in stock and request additional information in regards to question for TERRY Hernandez. Left message @ [phone] with affiliation and contact number, , no pertient patient information left on voicemail. Will re attempt at a later time. TERRY Hernandez's Message It is fine for her to wait till pharmacy gets it in. ?? Please ask her what question she has about this. ?? Emilia Hernandez NP * Telephone Encounter - Emilia Hernandez APRN-CNP - 06/02/2018 4:23 PM CDT It is fine for her to wait till pharmacy gets it in. Please ask her what question she has about this. mEilia Hernandez NP * Telephone Encounter - Maria Dolores Clay - 06/02/2018 10:34 AM CDT PT: Carrie Glez PH: [phone] Pt wanted to let Emilia know that the blood pressure medication that she prescribed for her she cannot get it for a few more days because the pharmacy was out of stock and patient wanted to make Emilia aware of this. Patient would like Emilia to call her regarding this. JAN: 06.02.18 NOV: 06.30.18 Maria Dolores Anderson documented in this encounter Plan of Treatment Upcoming Encounters Date Type Department Care Team (Late st Contact Info) Description 02/01/2025 1:50 PM CDT Office Visit [facility] - Nephrology [address] [place] [address], [place] [address] Josie Almonte, MARKET RESEARCH WORKER-SPECTROGRAPHER [address] [place] [address] [place] [address] Roxana Gallardo MD [address] [place] [address] 2L [place] [address] 02/08/2025 10:30 AM CDT Office Visit [facility] - Urology [address] [place] [address] [address] [place] [address] Josie Almonte, MARKET RESEARCH WORKER-SPECTROGRAPHER [address] [place] [address] [place] [address] 02/15/2025 10:15 AM CDT Office Visit [facility] - Vascular Surgery [address] [place] [address], [place] [address] Margot North MD [address] [place] [address] 2L [place] [address] 03/13/2025 8:50 AM CDT Office Visit [facility] - LEAD WORKER OF HOUSEKEEPING AND LAUNDRY [address] [facility] [address] [place] [phone] Titus Kong MD [address] [address] 03/14/2025 9:00 AM CDT Office Visit [facility] - Ophthalmology [address] [place] [phone] 03/16/2025 8:30 AM CDT Office Visit [facility] - Internal Med [address] [place] [phone] Neftaly Valerio MD [address] [place] [address] 04/20/2025 9:00 AM CDT Office Visit [facility] - Internal Med [address] [place] [phone] Neftaly Valerio MD [address] [place] [address] 05/04/2025 10:00 AM CDT Office Visit [facility] - Rheumatology [address] [place] [phone] Gala Post, MARKET RESEARCH WORKER-[address] [address] Kenny Braun MD [address] [place] [address] 2L [place] [address] 06/30/2025 9:40 AM CDT Office Visit [facility] - General Dermatology [address] [place] [phone] Robyn Babcock MD [address] [place] [address] 12/11/2025 9:00 AM PATIENT ACCESS Appointment [facility] [address] [facility] [address] [place] [address] documented as of this encounter Visit Diagnoses Not on filedocumented in this encounter Care Teams Egg Setter Relationship Specialty Start Date End Date Emilia Hernandez, MARKET RESEARCH WORKER-SPECTROGRAPHER PCP - General 04/30/18 06/17/21 Edgar Watson MD [address] 2L DIV [place] [address] PCP - General 06/18/21 07/16/21 Emilia Hernandez, MARKET RESEARCH WORKER-SPECTROGRAPHER [address] 2[address] DIV [place] [address] PCP - General 07/17/21 11/12/21 Razia Coles, MARKET RESEARCH WORKER-SPECTROGRAPHER [address] [place] [address] PCP - General 11/13/21 12/07/22 Neftaly Valerio MD [address] [place] [address] PCP - General Internal Medicine 07/18/24 documented as of this encounter
--- OUTSIDE RECORDS SUMMARY | 2025-01-24 12:59 | XMS_ITS | Data Portability ---
Author Organization [facility], , Home Address [place], [place] [address] Care Team Providers Care Director Emergency Department Name Role Phone CARLITO ATKINS Primary Care Provider [phone] CARLITO ATKINS Referring Provider CALLUM HEATH OTHER Assessment No assessment recorded. Plan of Treatment Reminders Order Date Submit Date Provider Last Modified By Organization Details Last Modified Time Details Appointments None record ed. Lab None record ed. Referral None record ed. Procedures None record ed. Surgeries None record ed. Imaging None record ed. Medication Orders None record ed. Patient TargetsNo targets recorded. 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 discussed all non surgicl treatment for same. willdefer surgical discussion to Dr north who atient will see next at same office, daniella Not available 06/06/2024 17:47:07 Reason for Referral None Reported. Problems Name Problem SNOMED Code Status Onset Date Resolution Date Notes Provider Name and Address Organization Details Recorded Time Ulcer of right foot 420118397 Completed 202105/21/2023 4 mm diameter sub 2nd MTP to dermis and above SQ Removal Reason: resolved 05-11-23 Glenn wilson, DPM [address] [facility], [place], [address] , [facility], 06/29/202 3 13:11:52 Ulcer of foot 12401924 Completed 202205/21/2023 sub 5th met base 1.0 cm diameter to dermis superfic ial without sign of infectio n Removal Reason: resolved 05-11-23 Glenn wilson, DPM [address] [facility], [place], [place], [address] [place] [address] 8, [facility], 3 13:11:21 Venous insuffic iency of leg 295490589 Active 2022 germán wilson, DPM [address] [place], [place], [address] [place] [address] 8, [facility], 3 15:49:38 Localize d hyperhid rosis 880270048 Active 2022 Glenn wilson, DPM [address] [place], [place], [address] [place] [address] 8, [facility], 3 13:12:13 Bromhidr osis 85449186 Active 2022 germán wilson, DPM [address] [place], [place], [address] [place] [address] 8, [facility], 3 13:00:44 Onychomy cosis of toenails 564625476 Active 2022 secondar y to dermatop hyte +APS germán l 1,2 4 worst Glenn wilson, DPM [address] [place], [place], [address] [place] [address] 8, [facility], 3 12:57:34 Tinea pedis 1263783 Active 2022 3rd web space right foot Glenn wilson, DPM [address] [place], [place], [address] [place] [address] 8, [facility], 3 21:14:35 Foot callus 799887935 Active 2021 sub 2 right sub 5th met (not at head 2-6-24) and base right foot tip of 3rd toe bilatera l Glenn wilson, DPM [address] [place], [address], [facility], 4 13:13:17 Pain in both feet 71029780214 678506 Active 2021 multiple causes bilatera l improper shoe fit is most obvious first reason Glenn wilson, DPM [address] [place], [address], [facility], 3 21:20:23 Bunion 806815646 Active 2021 recurren t Glenn wilson, DPM [address] [place], [place], [address] [place] [address] 8, [facility], 3 21:20:54 Hammer toe 825521059 Active 2021 Glenn wilson, DPM [address] [place], [address] [place] [address] 8, [facility], 3 21:21:23 Problem Notes None recorded. Procedures Surgical History Date Name Laterality Status Provider Name and Address Organization Details Recorded Time 4 thick nails fungus nails completed JD MirelesM [address] [place], [place], [address] [place] [address], [facility], 06/06/2024 17:42:16 4 Corns and Callous debridement multiple completed Glenn Mendieta DPM [address] [place], [place], [address] [place] [address], [facility], 06/06/2024 17:42:08 Imaging Results None recorded. Procedure Notes None recorded. Medical Equipment None Reported. Medications Name Sig Start Date Stop Date Status Note LastModified by Organization Details LastModified Time atorvastat in 20 mg tablet TAKE 1 TABLET BY MOUTH ONCE DAILY active Not Available Not Available No t Available trandolapr il 2 mg tablet TAKE 1 TABLET BY MOUTH ONCE DAILY active Not Available Not Available No t Available oxybutynin chloride ER 10 mg tablet,ext ended release 24 hr TAKE 1 TABLET BY MOUTH ONCE DAILY active Not Available Not Available No t Available metoprolol succinate ER 50 mg tablet,ext ended release 24 hr TAKE 1 TABLET BY MOUTH ONCE DAILY active Not Available Not Available No t Available hydrocodon e 5 mg-acetami nophen 325 mg tablet TAKE 1 TABLET BY MOUTH EVERY 8 HOURS NEEDED FOR PAIN 03/17 completed Not Available Not Available Not Available ciprofloxa buddy 500 mg tablet TAKE 1 TABLET BY MOUTH TWICE DAILY 07/10 completed Not Available Not Available Not Available terbinafin e HCl 250 mg tablet TAKE 1 TABLET BY MOUTH TWICE DAILY WITH FOOD FOR 7 DAYS- STOP FOR 3 WEEKS, THEN PULSE FOR 7 DAYS AGAIN. TOTAL OF 4 PULSES OVER 4 MONTHS- ONLY 14 TABS TOTAL PER MONTH 10/23 completed pulse dosing bid #56 Not Available Not Available Not Available tamsulosin 0.4 mg capsule TAKE 1 CAPSULE BY MOUTH ONCE DAILY FOR 2 WEEKS active Not Available Not Available No t Available benzonatat e 100 mg capsule TAKE 1 CAPSULE BY MOUTH THREE TIMES DAILY NEEDED FOR COUGH 12/28 completed Not Available Not Available Not Available cephalexin 500 mg capsule TAKE 1 CAPSULE BY MOUTH EVERY 6 HOURS FOR 7 DAYS active Not Available Not Available No t Available ibuprofen 400 mg tablet TAKE 1 TABLET BY MOUTH THREE TIMES DAILY NEEDED FOR PAIN OR FEVER active Not Available Not Available No t Available hydrochlor othiazide 25 mg tablet TAKE 1 TABLET BY MOUTH ONCE DAILY active Not Available Not Available No t Available mupirocin 2 % topical ointment APPLY A SMALL AMOUNT TOPICALL Y TO THE AFFECTED AREA 3 TIMES DAILY (AFTER CLEANSIN G ULCER ON BOTTOM OF RIGHT FOOT ONCE DAILY AND AN ADDITION AL TWO TIMES) 05/11 completed Not Available Not Available Not Available ergocalcif rafaela (vitamin D2) 1,250 mcg (50,000 unit) capsule TAKE 1 CAPSULE BY MOUTH ONCE A WEEK active Not Available Not Available No t Available albuterol sulfate HFA 90 mcg/actuat ion aerosol inhaler INHALE 2 PUFFS BY MOUTH EVERY 4 HOURS NEEDED active Not Available Not Available No t Available ketoconazo le 2 % topical cream Apply 1 applicat ion every day by topical route as directed for 60 days. 2022 active Not Available Not Available Not Avai lable ciclopirox 0.77 % topical gel Apply 1 applicat ion every day by topical route as directed for 60 days, for acute interdig ital tinea pedis. 2023 active Not Available Not Available Not Avai lable azithromyc in 500 mg tablet TAKE 1 TABLET BY MOUTH ONCE DAILY 12/03 completed Not Available Not Available Not Available nitrofuran toin monohydrat e/macrocry stals 100 mg capsule TAKE 1 CAPSULE BY MOUTH TWICE DAILY FOR 5 DAYS 04/03 completed Not Available Not Available Not Available urea 41 % topical cream APPLY TO AFFECTED AREA(S) callus sub 2 right sub 5th metbase right and tips of toes 3rd bilatera lBY TOPICAL ROUTE 2 TIMES PER DAY AND RUB INUNTIL COMPLETE LY ABSORBED 2023 active virgilio 42 from office 42% cream Not Available Not Available Not Available BinaxNOW COVID-19 Ag Self Test kit Use as Directed on the Package active Not Available Not Available No t Available Vitals None Recorded Social History None recorded. Functional Status None recorded. Mental Status None recorded. Family History Nothing Reported. Medical History No medical history recorded. Gynecological HistoryNo gynecological history recorded. Obstetrics History GPAL:G 0 P 0 0 0 0 Past Encounters Encounter ID Performer Location Encounter Start Date Encounter Closed Date Diagnosis/Indication Diagnosis SNOMED-CT Code Diagnosis ICD10 Code Diagnosis Note [id number] Glenn Mendieta DPM OFFICE [address] [place] [address] 04/28/2024 10:03:30 04/28/2024 11:11:58 Foot callus 964081320 L84 john with corns and interdigit al john secondary to multiple deformitie s john Bunion 604700636 M21.61 9 Hammer toe 220280710 M20 .41 M20.42 Onychomyco sis of toenails 859481644 B35.1 john Venous ins ufficiency of leg 760971156 I87.2 john Localized hyperhidrosis 154323487 L74.513 john Tinea pedis 4898919 B35. 3 3rd web space right foot Health Concerns Section Related Observation LastModified by Organization Detai ls LastModified Time None Recorded Concern Status LastModified by Organization Details LastModified Time None Recorded Advance Directives Directive None Recorded Payers Encounter Date Sequence Insurance Name Policy Number Policy Melchor Covered Member ID Melchor Member ID Guarantor Name 04/28/2024 1 [employer] (O) [id number] Amaris Mann [id number] Amaris Khan Carrie Notes Date Note Type Note Provider Name and Address Organization Details Recorded Time 04/28/2024 text/html F/U IPK sub 2 R/ [place] tip 3 L interdigital corns Glenn Mendieta, DPM [address] [place], [address], [facility], 06/06/2024 17:54:16 OBGyn Episode No OBEpisode recorded.
--- OUTSIDE RECORDS SUMMARY | 2025-01-24 12:59 | XMS_ITS | Encounter Summary ---
Author Organization [facility] Address [address] [facility] [place] [address] Care Team Providers Care Fence Installer Name Role Phone Emilia Hernandez APRN-HOTEL ASSOCIATE Primary Care Provi scarlett Edgar Watson MD Primary Care Provider [phone] Emilia Hernandez SUPERVISOR SANDING-HOTEL ASSOCIATE Primary Care Provi [place] Razia Coles SUPERVISOR SANDING-HOTEL ASSOCIATE Primary Care Provider [phone] Neftaly Valerio MD Primary Care Provider Reason for Visit * Reason Onset Date Comments Results 10/27/2018 Results 10/28/2018 1st attempt to c ontact pt with results LM Results 11/05/2018 2nd attempt to c ontact pt with results LM Results 11/11/2018 3rd attempt to c ontact pt with results LM Encounter Details Date Type Department Care Team (Late st Contact Info) Description 10/27/2018 Telephone [facility] [address] [facility] [address] [place] [address] Emilia Hernandez, SUPERVISOR SANDING-HOTEL ASSOCIATE [address] OF [facility] [place] [address] Results; Results (1st attempt to contact pt with results LM); Results (2nd attempt to contact pt with results LM ); Results (3rd attempt to contact pt with results LM) Social History Tobacco Use Types Packs/Day [...] encounter Miscellaneous Notes * Telephone Encounter - Emilia Hernandez APRN-CNP - 11/11/2018 9:35 AM FABRIC COATING SUPERVISOR Letters with mammogram results come from mammography department. She should have received by now. ELZA Faith IC COATING SUPERVISOR * Telephone Encounter - Kathleen Medina - 11/11/2018 9:08 AM CST Please advise if a letter with results should be sent to patient. IC COATING SUPERVISOR * Telephone Encounter - Kathleen Medina - 11/11/2018 9:08 AM CST 3rd attempt to contact patient and notify of mammogram results and unable to reach at this time. ? Left message @ [phone]??with affiliation and contact number, , no pertient patientinformation left on voicemail. ? TERRY Hernandez's Message Please tell her they were negative. ELZA Faith IC COATING SUPERVISOR * Telephone Encounter - Kathleen Medina - 11/05/2018 11:46 AM CST 2nd attempt to contact patient and notify of mammogram results and unable to reach at this time. ?? Left message @ [phone] with affiliation and contact number, , no pertient patient information left on voicemail. ?? Will re attempt at a later time ?? LINE DECORATOR Mary's Message Please tell her they were negative. ELZA Faith IC COATING SUPERVISOR * Telephone Encounter - Kathleen Medina - 10/28/2018 12:33 PM CST 1st attempt to contact patient and notify of mammogram results and unable to reach at this time. Left message @ [phone] with affiliation and contact number, , no pertient patient information left on voicemail. Will re attempt at a later time LINE DECORATOR Mary's Message Please tell her they were negative. ELZA Faith IC COATING SUPERVISOR * Telephone Encounter - Emilia Hernandez APRN-CNP - 10/27/2018 4:13 PM FABRIC COATING SUPERVISOR Please tell her they were negative. ELZA Faith IC COATING SUPERVISOR * Telephone Encounter - Hayden aLm - 10/27/2018 2:28 PM CST Pt Amaris Butler Pt called to get the results of her mammogram, Thank you very much Hayden IC COATING SUPERVISOR documented in this encounter Plan of Treatment Upcoming Encounters Date Type Department Care Team (Late st Contact Info) Description 02/01/2025 1:50 PM CDT Office Visit [facility] Nephrology [address] [place] [address], [place] [address] Josie Almonte, SUPERVISOR SANDING-HOTEL ASSOCIATE [address] [place], [place] [address]T [place] [address] [place] [address] [place] [address] 2L [place] [address] 02/08/2025 10:30 AM CDT Office Visit [facility] - Urology [address] [facility] [address] [place] [address] Josie Almonte, SUPERVISOR SANDING-HOTEL ASSOCIATE [address] [place], [place] [address]T [place] [address] 02/15/2025 10:15 AM CDT Office Visit [facility] - Vascular Surgery [address] [place] [phone] Margot North MD [address] [place] [address] 2L [place] [address] 03/13/2025 8:50 AM CDT [facility] JELLY FILTER TENDER [address] [facility] [address] [place] [address] Titus Kong MD [address] [place] [address] 03/14/2025 9:00 AM CDT Office Visit [facility] - Ophthalmology [address] [place] [address], [place] [address] 03/16/2025 8:30 AM CDT Office Visit [facility] - Internal Med [address] [place] [phone] Neftaly Valerio MD [address] [place] [address] 04/20/2025 9:00 AM CDT Office Visit [facility] - Internal Med [address] [place] [phone] Neftaly Valerio MD [address] [place] [address] 05/04/2025 10:00 AM CDT Office Visit [facility] - Rheumatology [address] [place] [phone] Gala Post APRN-HOTEL ASSOCIATE [address] [place] [phone] Kenny Braun MD [address] [place] [address] 2L [place] [address] 06/30/2025 9:40 AM CDT Office Visit [facility] - General Dermatology [address], [facility] [address] [place] [address] Robyn Babcock MD [address] [place] [address] 3L [place] [address] 12/11/2025 9:00 AM FABRIC COATING SUPERVISOR Appointment [facility] Breast Care [address] [place] [address] [address] [place] [address] documented as of this encounter Visit Diagnoses Not on filedocumented in this encounter Care Teams Fence Installer Relationship Specialty Start Date End Date Emilia Hernandez, SUPERVISOR SANDING-HOTEL ASSOCIATE PCP - General 04/30/18 06/17/21 Edgar Watson MD [address] [place] [address] 2L DIV [place] [address] PCP - General 06/18/21 07/16/21 Emilia Hernandez, SUPERVISOR SANDING-HOTEL ASSOCIATE [address] [place] [address] OF [facility] [place] [phone] PCP - General 07/17/21 11/12/21 Razia Coles SUPERVISOR SANDING-HOTEL ASSOCIATE [address] [place] [phone] PCP - General 11/13/21 12/07/22 Neftaly Valerio MD [address] [place] [address] PCP - General Internal Medicine 07/18/24 documented as of this encounter
--- OUTSIDE RECORDS SUMMARY | 2025-01-24 13:00 | XMS_ITS | Encounter Summary ---
Author Organization [facility] Address [address] [place] [address] Care Team Providers Care Mortgage Loan Computation Clerk Name Role Phone Neftaly Valerio MD Primary Care Provider [phone] Encounter Details Date Type Department Care Team (Latest Contact Info) Description 01/23/2025 Travel Social History Tobacco Use Types Packs/Day Years [...] Office Visit [facility]rology [facility] [place] [phone] Josie Almonte, INSPECTOR METAL FABRICATING-NAIL SPECIALIST [address] [facility] DEPT [place] [address] Roxana Gallardo MD [address] [facility] 2L [place] [address] 02/08/2025 10:30 AM CDT Office Visit [facility] - Urology [address] [place] [phone] Josie Almonte, INSPECTOR METAL FABRICATING-NAIL SPECIALIST [address] [facility] [place] [address] 02/15/2025 10:15 AM CDT Office Visit [facility] - Vascular Surgery [address] [place] [phone] Margot North MD [facility] [facility] 2L DIV [place] [address] 03/13/2025 8:50 AM CDT Office Visit [facility] - FAMILY PRACTICE PHYSICIAN ASSISTANT [address] [facility] [address] [place] [phone] Titus Kong MD [address] [place] [address] 03/14/2025 9:00 AM CDT Office Visit [facility] - Ophthalmology [address] [place] [address], [place] [phone] 03/16/2025 8:30 AM CDT Office Visit [facility] - Internal Med [address] [place] [phone] Neftaly Valerio MD [address] [place] [address] 04/20/2025 9:00 AM CDT [facility] [address] [facility], [place] [phone] Neftaly Valerio MD [address] [place] [address] 05/04/2025 10:00 AM CDT Office Visit [facility] - Rheumatology [address] [place] [address], [place] [phone] PersonGala, INSPECTOR METAL FABRICATING-NAIL SPECIALIST [address] [phone] Kenny Braun MD [address] [place] [address] 2L [place] [phone] 06/30/2025 9:40 AM CDT Office Visit [facility] - General Dermatology [address], [facility] [address] [place] [phone] Robyn Babcock MD [address] [place] [address] 3L [place] [address] 12/11/2025 9:00 AM LOADER UNLOADER Appointment [facility] Breast Care [address] [facility] [address] [place] [address] documented as of this encounter Visit Diagnoses Not on filedocumented in this encounter Care Teams Mortgage Loan Computation Clerk Relationship Specialty Start Date End Date Neftaly Valerio MD [address] [place] [address] PCP - General Internal Medicine 07/18/24 documented as of this encounter
--- OUTSIDE RECORDS SUMMARY | 2025-01-24 13:00 | XMS_ITS | Encounter Summary ---
Author Organization [facility] Health Address [address] [facility] [place] [address] Care Team Providers Care Forest Supervisor Name Role Phone Neftaly Valerio MD Primary Care Provider [phone] Reason for Visit * Reason Onset Date Comments Advice Only 01/22/2025 Cellulitis 01/22/2025 Encounter Details Date Type Department Care Team (Late st Contact Info) Description 01/22/2025 Telephone [facility] - Internal Med [address] [facility] [place] [address] Melo Orr MD [address] [place] [address] Advice Only; Cellulitis Social History Tobacco Use Types Packs/Day Years [...] encounter Miscellaneous Notes * Telephone Encounter - Amaris Nicole RN - 01/24/2025 10:37 AM CST Pt calling in and could not get to the acute appt with TERRY Michel this morning. She is going to [facility] in [facility] at this time. States she has been on the keflex for 5 days, and is only a little better. She said usually she gets better quickly but still feels very unwell. Feels nauseated, and hasn't been eating, does feel hot but unsure if she has a fever. Is anxious. Advised pt that being evaluated in ED is appropriate and will give pcp the message. FRONT DESK AGENT * Telephone Encounter - Bev Martinez RN - 01/23/2025 9:42 AM LEAD FRONT DESK AGENT Pt called to schedule an urgent care f/u. Scheduled 01/24 acute appt with Mattie Michel for eval. FRONT DESK AGENT * Telephone Encounter - Melo Orr MD - 01/22/2025 11:44 AM CST Pt called to report that she was seen in urgent care at a different facility on Thursday, was diagnosed with lower extremity cellulitis and prescribed a PO cephalosporin. She reports she gets frequent cellulitis of lower extremity due to poor circulation. She reports being advised by urgent care to monitor her leg for 48 hrs and if it doesn't get better to call back and get a prescription for clindamycin. She was told that clindamycin can cause infection of colon. She has not called that urgent care yet regarding her concerns and calling [facility] to get a different opinion. She reports no fevers, chills or worsening pain or rash however when I asked if this is getting worse she told me yes in her opinion it is getting worse as it is not getting better. I advised with reported poor circulation it can take a while for the antibiotics to work and it will be reasonable to see how she does today and if no red flags to continue with current antibiotics and check in with PCP tomorrow however she reports she thinks it is getting worse as above, I advisedher in that case the responsible thing would be to follow the plan of the provider who last evaluated her on Thursday which is give them a call and if they feel appropriate to get clindamycin. She needs to be evaluated prior to making the determination to change/ escalate antibiotic therapy by a different provider. She had additional questions regarding clindamycin which I advised to discuss with the prescribing physician once that determination is made that this is antibiotic of choice for her. Pt aware of theneed to get evaluated given worsening cellulitis. Melo Orr MD FRONT DESK AGENT documented in this encounter Plan of Treatment Upcoming Encounters Date Type Department Care Team (Late st Contact Info) Description 02/01/2025 1:50 PM CDT Office Visit [facility] - Nephrology [address] [place] [address], [place] [phone] Josie Almonte, FURNITURE REPRODUCER-MANAGER ROOM [address] [place], [place] [address]T [place] [address] Roxana Gallardo MD [address] [place] [address] [place] [address] 02/08/2025 10:30 AM CDT Office Visit [facility] - Urology [address] [facility] [address] [place] [address] Josie Almonte, FURNITURE REPRODUCER-MANAGER ROOM [address] [place], [place] [address]T [place] [address] 02/15/2025 10:15 AM CDT Office Visit [facility] - Vascular Surgery [address] [place] [address], [place] [address] Margot North MD [address] [place] [address] 2L [place] [phone] 03/13/2025 8:50 AM CDT Office Visit [facility] - FORENSIC PATHOLOGIST [address] [facility] [address] [place] [phone] Titus Kong MD [address] [place] [address] 03/14/2025 9:00 AM CDT Office Visit [facility] - Ophthalmology [address] [place] [phone] 03/16/2025 8:30 AM CDT Office Visit [facility] - Internal Med [address] [place] [phone] Neftaly Valerio MD [address] [place] [address] 04/20/2025 9:00 AM CDT Office Visit [facility] - Internal Med [address] [place] [phone] Neftaly Valerio MD [address] [place] [address] 05/04/2025 10:00 AM CDT Office Visit [facility] - Rheumatology [address] [place] [phone] Gala Post, FURNITURE REPRODUCER-[facility] [phone] Kenny Braun MD [address] [place] [address] 2L [place] [address] 06/30/2025 9:40 AM CDT Office Visit [facility] - General Dermatology [address] [place] [address] Robyn Babcock MD [address] [facility] 3L [place] [address] 12/11/2025 9:00 AM LEAD FRONT DESK AGENT Appointment [facility] [address] [facility] [address] [place] [address] documented as of this encounter Visit Diagnoses Not on filedocumented in this encounter Care Teams Forest Supervisor Relationship Specialty Start Date End Date Neftaly Valerio MD [address] [place] [address] PCP - General Internal Medicine 07/18/24 documented as of this encounter
--- OUTSIDE RECORDS SUMMARY | 2025-01-24 13:00 | XMS_ITS | Clinical Summary ---
Author Organization [facility] Address [address] [place] [address] Care Team Providers Care Wharf Laborer Name Role Phone Neftaly Valerio MD Primary Care Provider [phone] Source Comments [facility],non-owned Affiliates and Associated Physician Practices is amultiple site organization consisting of ambulatory clinics and hospital sitesin [place], [place], [place] and [place]. This disclosure is being madepursuant to the Care Everywhere program and may not contain all information available regarding this patient. Last updated 18.[facility] Allergies Active Allergy Reactions Criticality Noted Date Comments Sulfa Drugs Rash Medium 11/22/2019 Medications * Be aware that medications may not be up to date on this document. Alwaysverify current medications with the patient. Medication Sig Dispensed Refills Start Date End Date Status Blood Pressure Monitor [facility] Use 1 device once daily as needed [...] Active vitamin D, ergocalciferol, (Drisdol) 1.25 MG (61400 UT) capsuleIndication s:Vitamin D deficiency Take 1 [...] days for 90 days. 14 mL 12/15/2024 Active Active Problems Patient Care Coordination No [...] 12/13/2024 Assessment & Plan (12/13/2024 1:51 PM TRIMMER SORTER): - NSAIDs and tylenol as needed - Ref to physical therapy - Discussed that is likely at least somewhat contributed to by obesity, weight loss will often be helpful Prediabetes 12/13/2024 Assessment & Plan (12/13/2024 1:53 PM TRIMMER SORTER): - Weight related complication - Check A1c - continue lifestyle changes to diet and exercise as able - Recommend GLP-1 see obesity section Preventative health care 12/13/2024 Assessment & Plan (12/13/2024 1:55 PM TRIMMER SORTER): The 10-year ASCVD risk score (Alena LENTZ, [...] 07/29/2024 Assessment & Plan (12/13/2024 1:58 PM TRIMMER SORTER): - Following with vascular surgery Chronic venous stasis dermatitis of both lower e xtremities 07/29/2024 Urgency incontinence 05/02/2022 Multiple benign nevi of uppe r and lower extremities, and trunk 04/12/2019 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 Venous stasis dermatitis of both lower extremiti es 04/12/2019 Kidney stone on left side 11/26/2018 Other microscopic hematuria 11/26/2018 Edema 03/17/2017 Morbid obesity 03/17/2017 Assessment & Plan (12/13/2024 1:57 PM TRIMMER SORTER): - Has been trying to lose weight [...] 09/17/2015 Assessment & Plan (12/13/2024 1:49 PM TRIMMER SORTER): - Good control - Continue meds - [...] 11/24/2019 Assessment & Plan (10/27/2019 10:23 AM TRIMMER SORTER): Based on appearance, consist with drug rash. Patient denies any new medications. Would not expect reaction of this severity from Bactrim after tolerating previously for 7 days. Based on exam, ok to stop Bactrim--would is healing well. Zyrtec 20mg daily for 3 days then 10mg daily Stop new soap Cellulitis of right lower extremity 10/27/2019 12/13/2024 Assessment & Plan (10/27/2019 10:24 AM TRIMMER SORTER): Appears to be healing--ok to stop antibiotics based on exam--if symptoms recur, worsen or if fevers or chills, need to call office immediately Other viral warts 04/12/2019 12/13/2024 Hydronephrosis, left 11/26/2018 025 Hydroureter, left 11/26/2018 12/13/2024 Overview (06/18/2021): Passed urethral stone. Acute kidney injury 11/26/2018 10/27/20 19 Basal cell carcinoma of right upper extremity 10/25/20 18 11/26/2018 Encounters Date Type Department Care Team Description 01/23/2025 Travel 01/22/2025 Telephone [facility] - Internal Med [address] [place] [phone] Melo Orr MD Advice Only; Cellulitis 01/02/2025 Travel 12/26/2024 Telephone [facility] - Internal Med [address] [place] [phone] Neftaly Valerio MD Screening Colonoscopy 12/15/2024 Orders Only [facility] - Internal Med [address] [place] [phone] Neftaly Valerio MD Class 2 severe obesity due to excess calories with serious comorbidity and body mass index (BMI) of 39.0 to 39.9 in adult (HCC) ; Prediabetes 12/12/2024 Telephone [facility] - Internal [address] [address] Neftaly Valerio MD LABS ONLY 12/12/2024 Telephone [facility] - Internal Med [address] [place] [phone] Neftaly Valerio MD Medication Prior Auth Request 12/08/2024 10:00 AM TRIMMER SORTER Office Visit [facility] - Internal Med [address] [place] [phone] Neftaly Valerio MD Morbid obesity (HCC) (Primary Dx); Lipid screening; Left sciatic nerve pain; Prediabetes; Essential hypertension; Venous insufficiency of both lower extremities 12/08/2024 Travel 12/06/2024 Travel 12/05/2024 9:00 AM TRIMMER SORTER - 12/05/2024 11:59 PM TRIMMER SORTER Hospital Encounter [address] [place] [phone] Neftaly Valerio MD Discharge Disposition: Home or Self Care 10/27/2024 Travel from Last 3 Months Immunizations Name Administration Dates Next Due Covid [...] Zoster Hzv Vacc Recombinant Inj Im 12/11/2022, Family History Medical History Relation Name Comments CAD (Coronary Artery Disease) Father Renal Disease Father None Known Maternal Aunt None Known Maternal Grandfather None Known Maternal Grandmother None Known Maternal Uncle CAD (Coronary Artery Disease) Mother Hypertension Mother None Known Other None Known Paternal Aunt Cancer - Other Paternal Grandfather None Known Paternal Grandmother None Known Paternal Uncle Aneurysm, Brain Sister Asthma Neg Hx CVA Neg Hx Cancer - Breast Neg Hx Cancer - Skin, Melanoma Neg Hx Cancer - Skin, Non Melanoma Neg Hx Eczema Neg Hx Hemophilia Neg Hx Psoriasis Neg Hx Relation Name Status Comments Father (Age 73) Maternal Aunt Maternal Grandfather Maternal Grandmother Maternal Uncle Mother (Age 68) Other Paternal Aunt Paternal Grandfather Paternal Grandmother Paternal Uncle Sister (Age 68) Social History Tobacco Use [...] Comments Blood Pressure 122/65 12/08/2024 10:01 AM TRIMMER SORTER Pulse 72 12/08/2024 10:01 AM TRIMMER SORTER Temperature 36.7 C (98.1 F) 12/08/2024 10:01 AM TRIMMER SORTER Respiratory Rate 18 09/28/2024 9:40 AM TRIMMER SORTER Oxygen Saturation 99% 12/08/2024 10:01 AM TRIMMER SORTER Inhaled Oxygen Concentration - - Weight 103.4 kg (228 lb) 12/08/2024 10:01 AM TRIMMER SORTER Height 162.6 cm (5' 4 ) 12/08/2024 10:01 AM TRIMMER SORTER Body Mass Index 39.14 12/08/2024 10:01 AM TRIMMER SORTER Plan of Treatment Upcoming Encounters Date Type Department Care Team (Late st Contact Info) Description 02/01/2025 1:50 PM CDT [facility]phrology [address] [place] [address], [facility] [place] [phone] Josie Almonte, SAVINGS COUNSELOR-SHEARER PRINTED CIRCUIT BOARDS [address] [place] [address] DE[place] [address] Roxana Glalardo MD [address] [place] [address] 2L [place] [address] 02/08/2025 10:30 AM CDT Office Visit [facility] - Urology [address] [place] [address] [address] [place] [address] Josie Almonte, SAVINGS COUNSELOR-SHEARER [employer]ARDS [address] [place] [address] DE[place] [address] 02/15/2025 10:15 AM CDT Office Visit [facility] - Vascular Surgery [address] [place] [phone] Margot North MD [address] [place] [address] 2L [place] [address] 03/13/2025 8:50 AM CDT Office Visit [facility] - PLANNING COORDINATOR [address] [facility] [address] [place] [phone] Titus Kong MD [address] [place] [address] 03/14/2025 9:00 AM CDT Office Visit [facility] - Ophthalmology [address] [place] [phone] 03/16/2025 8:30 AM CDT Office Visit [facility] - Internal Med [address] [place] [phone] Neftaly Valerio MD [facility] [place] [address] 04/20/2025 9:00 AM CDT Office Visit [facility] - Internal Med [address] [place] [phone] Neftaly Valerio MD [facility] [place] [address] 05/04/2025 10:00 AM CDT Office Visit [facility] - Rheumatology [address] [place] [phone] Gala Post, SAVINGS COUNSELOR-SHEARER [employer]AR[employer] [address] [phone] Kenny Braun MD [address] 2L [place] [phone] 06/30/2025 9:40 AM CDT Office Visit [facility] - General Dermatology [address] [place] [address] Robyn Babcock MD [address] 3L [place] [address] 12/11/2025 9:00 AM TRIMMER SORTER Appointment [facility] [address] [facility] [address] [place] [address] Health Maintenance Due Date Last Done Comments COLOGUARD (AGES 45-75) - COLON CA SCREENING [address] COLONOGRAPHY - COLON CA SCREENING 1955 FIT - COLON CA SCREENING 1955 FLEX SIG - COLON CA SCREENING 1955 HEPATITIS B VACCINE (3 of 3 - 19+ 3-dose series) 06/17/2011 01/20/2011, 12/18/2010 Respiratory Syncytial Virus (RSV) Vaccine Pt: or over 60 yrs (1 - Risk 60-74 years 1-dose series) 2016 COLONOSCOPY - COLON CA SCREENING 01/31/2024 01/30/2014 Colorectal Cancer Screening 01/31/2024 COVID-19 VACCINE ( season) 2024 01/06/2022, 01/05/2022, 08/05/2021, Additional history exists MAMMOGRAM 12/05/2026 12/05/2024, 11/23, 12/03/2022, Additional history exists SCREENING FOR DIABETES 12/09/2027 , 12/09/2024, 08/10/2024, Additional history exists DTAP/TDAP/TD VACCINES (4 - Td or Tdap) 09/17/2034 09/17/2024, 08/15/2019, 11/09/2008 BONE DENSITY TESTING Completed 01/04/2014 HEPATITIS C SCREENING Completed 11/26/2018, 018 PNEUMOCOCCAL VACCINE 50+ Completed 08/25/2022 ZOSTER VACCINE Completed 12/11/2022, 09/13/2022 INFLUENZA VACCINE Completed 09/28/2024, , 08/25/2022, Additional history exists DEPRESSION SCREENING Completed 12/08/2024, 06/03/2024, 04/17/2023 HIB VACCINE Aged Out No longer eligi ble based on patient's age to complete this topic HPV VACCINE Aged Out No longer eligi ble based on patient's age to complete this topic MENINGOCOCCAL (Group B) VACCINE Aged Out No longer eligible based on patient's age to complete this topic MENINGOCOCCAL VACCINE Aged Out No andrew yosef eligible based on patient's age to complete this topic Medical Devices Implanted Type Area [employer] Ascp Consultant Device Identifier Shelf Expiration Date Model / Serial / Lot Stent Uret 6fr 22cm Pgtl Crv Tpr Tip Implanted:Qty: 1 on 11/27/2018 by Luis Daniel Paz MD at [facility] Left: Ureter [employer]ed 08/19/2021 [id number] / / [id number] Procedures Procedure Name Priority Date/Time Associated Diagnosis Comments HEMOGLOBIN A1C Routine 12/09/2024 12:00 PM TRIMMER SORTER Morbid obesity (HCC) Prediabetes Essential hypertension LIPID PROFILE Routine 12/09/2024 12:00 PM TRIMMER SORTER Lipid screening CBC W AUTO DIFFERENTIAL Routine 12/09/2024 12:00 PM TRIMMER SORTER Morbid obesity (HCC) Essential hypertension COMPREHENSIVE METABOLIC PANEL Routine 12/09/2024 12:00 PM TRIMMER SORTER Morbid obesity (HCC) Essential hypertension MAMMO BILAT SCREENING W JAVAN Routine 12/05/2024 10:21 AM TRIMMER SORTER Visit for screening mammogram HEPATITIS C AB SCREEN RFLX NAAT QUANT STAT 11/26/2018 2:10 PM TRIMMER SORTER DEXA BONE DENSITY AXIAL SKELETON Routine 01/04/2014 9:48 AM TRIMMER SORTER from Last 3 Months or Most Recently Relevant to Health Maintenance Results * (ABNORMAL) HEMOGLOBIN A1C (12/09/2024 12:00 PM TRIMMER SORTER) [facility] Hemoglobin A1c 5.8(H) 4.8 - 5.6 % [facility] INSURANCE BILL Comment: Prediabetes: 5.7 - 6.4 Diabetes: >6.4 Glycemic control for adults with diabetes: <7.0 Blood BLOOD SPECIMEN / Unknown 12/09/2024 12:00 PM TRIMMER SORTER 12/09/2024 Narrative [facility] INSURANCE BILL - 12/10/2024 9:09 AM TRIMMER SORTER Performed at: 01 - Lab[address] [id number] Production Superintendent: Amadou Mckeon PhD, Phone: [phone] Neftaly Valerio MD LAB - CHEMISTRY KRIS MAC [facility] INSURANCE BILL [address] [place] [address] * CBC WITH DIFFERENTIAL (12/09/2024 12:00 PM TRIMMER SORTER) [facility] WBC 8.9 3.4 - 10.8 x10E3/uL [facility] [...] BLOOD SPECIMEN / Unknown 12/09/2024 12:00 PM TRIMMER SORTER 12/09/2024 Narrative [facility] INSURANCE BILL - 12/10/2024 9:09 AM TRIMMER SORTER Performed at: [address] [id number] Production Superintendent: Amadou Mckeon PhD, Phone: [phone] Neftaly Valerio MD LAB - HEMATOLOGY ORD ERABLES [facility] INSURANCE BILL [address] [place] [address] * (ABNORMAL) COMPREHENSIVE METABOLIC PANEL (12/09/2024 12:00 PM TRIMMER SORTER) Glucose 121(H) 70 - 99 mg/dL [facility] [...] BLOOD SPECIMEN / Unknown 12/09/2024 12:00 PM TRIMMER SORTER 12/09/2024 Narrative [facility] INSURANCE BILL - 12/11/2024 7:07 AM TRIMMER SORTER Performed at: [address] [id number] Production Superintendent: Amadou Mckeon PhD, Phone: [phone] Neftaly Valerio MD [facility] Organization Address City/State/ZIP Co de Phone Number [facility] INSURANCE BILL [address] [place] [address] * (ABNORMAL) LIPID PROFILE (12/09/2024 12:00 PM TRIMMER SORTER) [facility] Signature Cholesterol 201(H) 100 - 199 mg/dL [facility] INSURANCE BILL Triglycerides 388(H) 0 - 149 mg/dL [facility] INSURANCE BILL HDL Cholesterol 50 >39 mg/dL [facility] INSURANCE BILL VLDL Calculated 63(H) 5 - 40 mg/dL [facility] INSURANCE BILL LDL Calculated 88 0 - 99 mg/dL [facility] INSURANCE BILL Blood BLOOD SPECIMEN / Unknown 12/09/2024 12:00 PM TRIMMER SORTER 12/09/2024 Narrative [facility] INSURANCE BILL - 12/10/2024 3:07 PM TRIMMER SORTER Performed at: [address] [id number] Production Superintendent: Amadou Mckeon PhD, Phone: [phone] Neftaly Valerio MD LAB - CHEMISTRY ORDE RABLES [facility] INSURANCE BILL [address] [place] [address] * Mammo Bilat Screening W Javan (12/05/2024 10:21 AM TRIMMER SORTER) Anatomical Region Laterality Modality Breast Bilateral Mammography 12/05/2024 2:10 PM TRIMMER SORTER Impressions 12/05/2024 2:18 PM TRIMMER SORTER IMPRESSION: No mammographic evidence of malignancy in either breast. ASSESSMENT: BIRADS Category 1: Negative mammogram. RECOMMENDATION: Bilateral screening mammogram in one year. Thank you for allowing us to participate in the care of your patient. [facility] utilizes [employer] as a reminder system to notify patients of their next recommended mammogram. > Interpreting Provider: Vanessa Vazquez MD on 12/05/2024 2:18 PM Narrative 12/05/2024 2:18 PM TRIMMER SORTER EXAMINATION: Digital screening mammogram. Low-dose full-field digital [...] SCREEN RFLX NAAT QUANT (11/26/2018 2:10 PM TRIMMER SORTER) Hepatitis C Antibody Non-react muna Non-reac tive 11/26/2018 2:57 PM TRIMMER SORTER [facility] Comment: Hepatitis C Antibody screen [...] Unknown Venipuncture / Unknown 11/26/2018 2:10 PM TRIMMER SORTER 11/26/2018 2:15 PM TRIMMER SORTER Joycelyn Mann SAVINGS COUNSELOR-SHEARER PRINT[employer] BOARDS LAB - CHEMISTRY ORDERABLES [address] [phone] * DEXA BONE DENSITY AXIAL SKELETON (01/04/2014 9:48 AM TRIMMER SORTER) Anatomical Region Laterality Modality Other Narrative 01/04/2014 3:43 PM TRIMMER SORTER Examination: Dual energy x-ray absorptiometry of the lumbar spine and hip. Clinical Indication: Postmenopausal, fracture right foot. Findings: Detailed data from the exam is sent separately to the ordering physician and is also available on [employer], the Radiology Department's computerized picture archive system [...] 01/04/2014 3:43 PM . Procedure Note Afsaneh Mcfadden DO - 02/20/2018 Examination: Dual energy x-ray absorptiometry of the lumbar spine andhip. Clinical Indication: Postmenopausal, fracture right foot. Findings: Detailed data from the exam is sent separately to the orderingphysician and is also available on [employer], the Radiology Department'[employer] picture archive system SUMMARY: No prior study [...] MCFADDEN D.O. on 01/04/20143:43 PM . Emilia eHrnandez SAVINGS COUNSELOR-SHEARER PRINTED CIRCUIT BOARDS DEXA ORDERA BLES from Last 3 Months or Most Recently Relevant to Health Maintenance Advance Directives * Full Code (Latest Code Status on File) Date Activated Date Inactivated Comments 11/26/2018 5:01 PM 11/27/2018 5:02 PM Care Teams Wharf Laborer Relationship Specialty Start Date End Date Neftaly Valerio MD [address] [place] [address] PCP - General Internal Medicine 07/18/24
--- OUTSIDE RECORDS SUMMARY | 2025-01-24 13:00 | XMS_ITS ---
Author Organization [facility] Address [address] [place] [address] Care Team Providers Care Statistical Machine Mechanic Name Role Phone Neftaly Valerio MD Primary Care Provider [phone] Active Problems Patient Care Coordination No te [...] 12/13/2024 Assessment & Plan (12/13/2024 1:51 PM SPECIAL ASSETS OFFICER): - NSAIDs and tylenol as needed - Ref to physical therapy - Discussed that is likely at least somewhat contributed to by obesity, weight loss will often be helpful Prediabetes 12/13/2024 Assessment & Plan (12/13/2024 1:53 PM SPECIAL ASSETS OFFICER): - Weight related complication - Check A1c - continue lifestyle changes to diet and exercise as able - Recommend GLP-1 see obesity section Preventative health care 12/13/2024 Assessment & Plan (12/13/2024 1:55 PM SPECIAL ASSETS OFFICER): The 10-year ASCVD risk score (Alena LENTZ, [...] 07/29/2024 Assessment & Plan (12/13/2024 1:58 PM SPECIAL ASSETS OFFICER): - Following with vascular surgery Chronic venous stasis dermatitis of both lower e xtremities 07/29/2024 Urgency incontinence 05/02/2022 Multiple benign nevi of uppe r and lower extremities, and trunk 04/12/2019 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 Venous stasis dermatitis of both lower extremiti es 04/12/2019 Kidney stone on left side 11/26/2018 Other microscopic hematuria 11/26/2018 Edema 03/17/2017 Morbid obesity 03/17/2017 Assessment & Plan (12/13/2024 1:57 PM SPECIAL ASSETS OFFICER): - Has been trying to lose weight [...] 09/17/2015 Assessment & Plan (12/13/2024 1:49 PM SPECIAL ASSETS OFFICER): - Good control - Continue meds - [...] a statin candidate by ASCVD risk score. Current Oncology Plans No current plan information found. Past Plans No past plan information found. Radiation Treatments * No radiation treatments are documented for this patient in [facility]. Treatments may have been administered in another system. Lifetime Dose Tracking * Chemical Lifetime Dose Automatic Entry Manual Entr y Dose Length Product 1,555 mGy-cm 1,555 mGy-cm 0 mGy-cm Resolved Problems Problem Noted Date Diagnosed Date Resolved Date Cellulitis of left lower extremity 07/29/2024 12/13/2024 Rash 10/27/2019 11/24/2019 Assessment & Plan (10/27/2019 10:23 AM SPECIAL ASSETS OFFICER): Based on appearance, consist with drug rash. Patient denies any new medications. Would not expect reaction of this severity from Bactrim after tolerating previously for 7 days. Based on exam, ok to stop Bactrim--would is healing well. Zyrtec 20mg daily for 3 days then 10mg daily Stop new soap Cellulitis of right lower extremity 10/27/2019 12/13/2024 Assessment & Plan (10/27/2019 10:24 AM SPECIAL ASSETS OFFICER): Appears to be healing--ok to stop antibiotics [...]
--- OUTSIDE RECORDS SUMMARY | 2025-01-24 13:00 | XMS_ITS | Patient Health Summary ---
Author Organization [facility] Address [address] [place] [address] Care Team Providers Care Claim Auditor Name Role Phone Neftaly Valerio MD Primary Care Provider [phone] Note from [facility],non-owned Affiliates and Associated Physician Practices is amultiple site organization consisting of ambulatory clinics and hospital sitesin [place], [place], [place] and [place]. This disclosure is being madepursuant to the Care Everywhere program and may not contain all information available regarding this patient. Last updated 18.[facility] Allergies * Sulfa Drugs(Rash) -Medium Criticality Medications * Be aware that medications may not be up to date on this document. Alwaysverify current medications with the patient. * Blood Pressure Monitor MIS(Started 06/02/2018) Use 1 device once daily as needed * ciclopirox (Loprox) 0.77 % gel(Started 02/03/2024) APPLY TOPICALLY DIRECTED FOR 60 DAYS FOR ACUTE INTERDIGITAL TINEA PEDIS. * ibuprofen (Motrin) 400 MG tablet(Started 06/01/2024) * cephalexin (Keflex) 500 MG capsule(Started 06/01/2024) * atorvastatin (Lipitor) 20 MG tablet(Started 07/20/2024) Take 1 (one) tablet by mouth once daily 1 refill by 07/20/2025 * metoprolol succinate XL 24hr (Toprol XL) 50 MG tablet(Started 07/20/2024) Take 1 (one) tablet by mouth once daily 1 refill by 07/20/2025 * trandolapril (Mavik) 2 MG tablet(Started 07/20/2024) Take 1 (one) tablet by mouth once daily 1 refill by 07/20/2025 * vitamin D, ergocalciferol, (Drisdol) 1.25 MG (05283 UT) capsule(Started 07/20/2024) Take 1 (one) capsule by mouth every 7 days 1 refill by 07/20/2025 * hydroCHLOROthiazide (Hydrodiuril) 25 MG tablet(Started 07/20/2024) Take 1 (one) tablet by mouth once daily 1 refill by 07/20/2025 * vibegron (Gemtesa) 75 MG tablet(Started 07/27/2024) Take 1 (one) tablet by mouth once daily 2 refills by 07/27/2025 * albuterol HFA (Proventil; Ventolin; Proair) 108 (90 Base) MCG/ACT inhaler Inhale 2 (two) puffs by mouth every 4 hours as needed * ketoconazole (Nizoral) 2 % cream(Started 10/19/2023) Apply 1 application every day by topical route as directed for 60 days. * oxyBUTYnin CR 24hr (Ditropan-XL) 10 MG tablet Take 1 (one) tablet by mouth once daily * tamsulosin (Flomax) 0.4 MG capsule TAKE 1 CAPSULE BY MOUTH ONCE DAILY FOR 2 WEEKS * Urea 41 %(Started 01/26/2024) APPLY TO AFFECTED AREA(S) callus sub 2 right sub 5th metbase right and tips of toes 3rd bilateralBYTOPICAL ROUTE 2 TIMES PER DAY AND RUB INUNTIL COMPLETELY ABSORBED * hydrOXYzine HCl (Atarax) 25 MG tablet(Started 12/08/2024) Take 1 (one) tablet by mouth 3 times daily as needed (anxiety) * tirzepatide (Mounjaro) 2.5 MG/0.5ML injection(Started 12/15/2024) Inject 2.5 (two and one-half) mg subcutaneously every 7 days for 28 days, THEN 5 (five) mg every 7 days for 90 days. 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 Venous stasis dermatitis of both lower extremiti es 04/12/2019 Kidney stone on left side 11/26/2018 Other microscopic hematuria 11/26/2018 Edema 03/17/2017 Morbid obesity 03/17/2017 Vitamin D deficiency 03/17/2017 Trigger finger of right thumb 09/24/2015 Essential hypertension 09/17/2015 Generalized anxiety disorder 09/17/2015 Endometrial thickening on ultrasound 07/04/2015 Postmenopausal bleeding 07/04/2015 History of basal cell carcinoma (BCC) of skin Seborrheic keratoses 03/27/2014 Hypercholesterolemia 11/09/2008 Resolved Problems Problem Noted Date Diagnosed Date Resolved Date Cellulitis of left lower extremity 07/29/2024 12/13/2024 Rash 10/27/2019 11/24/2019 Cellulitis of right lower extremity 10/27/2019 12/13/2024 Other viral warts 04/12/2019 12/13/2024 Hydronephrosis, left 11/26/2018 025 Hydroureter, left 11/26/2018 12/13/2024 Acute kidney injury 11/26/2018 10/27/20 19 Basal cell carcinoma of right upper extremity 10/25/20 18 11/26/2018 Immunizations * Covid Moderna primary monovalent 12+ yr 0.5mL(Given 01/06/2022, 08/05/2021, 07/08/2021) * DT(Given 09/17/2024) * HepB Unspecified formulation(Given 01/20/2011, 12/18/2010) * INFLUENZA VACCINE(Given 08/23/2018) * INFLUENZA VACCINE, ADJUVANTED, QUADR. (FLUAD QUADRIVALENT; 65Y+) (AIIV4)(Given 10/23/2023) * INFLUENZA VACCINE, ADJUVANTED, TRIV. (FLUAD TRIVALENT; 65Y+) (AIIV3)(Given 09/28/2024) * INFLUENZA VACCINE, HIGH-DOSE, QUADR. (FLUZONE HIGH-DOSE QUADRIVALENT; 65Y+), 0.7 ML (HD-IIV4)(Given 08/25/2022, 11/01/2021) * INFLUENZA VACCINE, QUADR. (FLUZONE; FLULAVAL; FLUARIX; AFLURIA QUADRIVALENT; 6MO+), 0.5 ML (IIV4)(Given 08/15/2019) * Influenza Intradermal(Given 09/07/2017, 08/10/2009) * MODERNA SARS-COV-2 COVID-19 VACCINE 0.25ML(Given 01/05/2022) * PNEUMOCOCCAL PCV20 CONJ VAC IM(Given 08/25/2022) * TDAP (7yrs+)(Given 08/15/2019, 11/09/2008) * Zoster Hzv Vacc Recombinant Inj Im(Given 12/11/2022, 09/13/2022) Social History Tobacco Use Types Packs/Day Years [...] Comments Blood Pressure 122/65 12/08/2024 10:01 AM BILLET CHECKER Pulse 72 12/08/2024 10:01 AM BILLET CHECKER Temperature 36.7 C (98.1 F) 12/08/2024 10:01 AM BILLET CHECKER Respiratory Rate 18 09/28/2024 9:40 AM BILLET CHECKER Oxygen Saturation 99% 12/08/2024 10:01 AM BILLET CHECKER Inhaled Oxygen Concentration - - Weight 103.4 kg (228 lb) 12/08/2024 10:01 AM BILLET CHECKER Height 162.6 cm (5' 4 ) 12/08/2024 10:01 AM BILLET CHECKER Body Mass Index 39.14 12/08/2024 10:01 AM BILLET CHECKER Medical Devices Implanted Type Area Manager Graphic Device Identifier Shelf Expiration Date Model / Serial / Lot Stent Uret 6fr 22cm Pgtl Crv Tpr Tip Implanted:Qty: 1 on 11/27/2018 by Luis Daniel Paz MD at [facility] Left: Ureter [employer] Scimed 08/19/2021 [id number] / / [id number] Procedures * HEMOGLOBIN A1C(Performed 12/09/2024) Performed for Morbid obesity (HCC), Prediabetes, Essential hypertension * LIPID PROFILE(Performed 12/09/2024) Performed for Lipid screening * CBC W AUTO DIFFERENTIAL(Performed 12/09/2024) Performed for Morbid obesity (HCC), Essential hypertension * COMPREHENSIVE METABOLIC PANEL(Performed 12/09/2024) Performed for Morbid obesity (HCC), Essential hypertension * MAMMO BILAT SCREENING W JAVAN(Performed 12/05/2024) Performed for Visit for screening mammogram * VAS BILATERAL VENOUS REFLUX(Performed 10/14/2024) Performed for Chronic venous hypertension (idiopathic) with inflammation of bilateral lower extremity * LITHOLINK 24HR URINE PANEL QUANT (LC DIRECT SHIP)(Performed 08/25/2024) Performed for Kidney stone * CT RENAL STONE(Performed 08/18/2024) Performed for Kidney stone * REF LAB-SPECIMEN STATUS REPORT(Performed 08/10/2024) * URIC ACID BLOOD(Performed 08/10/2024) * BASIC METABOLIC PANEL (CALCIUM TOTAL)(Performed 08/10/2024) * PTH INTACT(Performed 08/10/2024) Performed for Kidney stone * URINALYSIS AUTO - POINT OF CARE (AMB) SLU(Performed 07/27/2024) Performed for Kidney stone * US RETROPERITONEAL COMPLETE(Performed 07/27/2024) Performed for Kidney stone * US RETROPERITONEAL COMPLETE(Performed 12/28/2023) Performed for Kidney stone * MAMMO BILAT SCREENING W JAVAN(Performed 12/04/2023) Performed for Visit for screening mammogram * IMMUNOSCORE IGE INTERP(Performed 12/04/2023) Performed for Moderate persistent asthma without complication (HCC) * CBC W AUTO DIFFERENTIAL(Performed 12/04/2023) Performed for Moderate persistent asthma without complication (HCC) * ALLERGEN RESPIRATORY PNL REGION 8 ([place])(Performed 12/04/2023) Performed for Moderate persistent asthma without complication (HCC) * MN DESTR MALIG TRUNK,EXTREM 1.1-2 CM(Performed 11/11/2023) Performed for Basal cell carcinoma (BCC) of lower back * XR CHEST 2VW(Performed 10/23/2023) Performed for Chronic cough * MN MSR PVR U&/BLADD CAPCTY US NON(Performed 09/28/2023) Performed for Urinary urgency * URINALYSIS AUTO - POINT OF CARE (AMB) SLU(Performed 09/28/2023) Performed for Urinary urgency * MN TANGNTL BX SKIN SINGLE LES(Performed 09/04/2023) Performed for Neoplasm of uncertain behavior of skin * DERMATOPATHOLOGY(Performed 09/04/2023) Performed for Neoplasm of uncertain behavior of skin * URINALYSIS MICROSCOPIC ONLY REFLEXED(Performed 06/06/2023) Performed for Microhematuria * URINALYSIS W/MICROSCOPIC REFLEX TO CULTURE(Performed 06/06/2023) Performed for Microhematuria * URINALYSIS W/MICROSCOPIC NO CULTURE(Performed 04/17/2023) Performed for Urgency incontinence * HEMOGLOBIN A1C - POINT OF CARE (AMB) SLU(Performed 04/17/2023) Performed for Prediabetes * PAP IMAGE-GUIDED W HPV(Performed 03/02/2023) Performed for Well woman exam with routine gynecological exam * HPV DETECTION HIGH RISK TOM(Performed 03/02/2023) Performed for Well woman exam with routine gynecological exam * MAMMO BILAT SCREENING W JAVAN(Performed 12/03/2022) Performed for Breast cancer screening by mammogram * VITAMIN D 25-HYDROXY(Performed 09/13/2022) * RHEUMATOID FACTOR BLOOD QUANTITATIVE(Performed 09/13/2022) * TSH(Performed 09/13/2022) * HEMOGLOBIN A1C(Performed 09/13/2022) * LIPID PROFILE(Performed 09/13/2022) * CBC W/O DIFFERENTIAL(Performed 09/13/2022) * COMPREHENSIVE METABOLIC PANEL(Performed 09/13/2022) * URINALYSIS AUTO - POINT OF CARE (AMB) SLU(Performed 08/15/2022) Performed for Kidney stone * URINALYSIS AUTO - POINT OF CARE (AMB) SLU(Performed 05/02/2022) Performed for Kidney stone * URINALYSIS W/MICROSCOPIC REFLEX TO CULTURE(Performed 03/21/2022) Performed for Urinary urgency * CULTURE URINE(Performed 03/21/2022) Performed for Urinary urgency * URINALYSIS AUTO - POINT OF CARE (AMB) SLU(Performed 03/21/2022) Performed for Kidney stone on left side * MN TANGNTL BX SKIN SINGLE LES(Performed 01/17/2022) Performed for Neoplasm of uncertain behavior of skin * DERMATOPATHOLOGY(Performed 01/17/2022) Performed for Neoplasm of uncertain behavior of skin * MAMMO BILAT SCREENING W JAVAN(Performed 11/22/2021) Performed for Screening breast examination * URINALYSIS REFLEX TO MICROSCOPIC NO CULTURE(Performed 10/28/2021) Performed for Essential hypertension, Edema, unspecified type * VITAMIN D 25-HYDROXY(Performed 10/28/2021) Performed for Vitamin D deficiency * COMPREHENSIVE METABOLIC PANEL(Performed 10/28/2021) Performed for Essential hypertension, Edema, unspecified type * MN DESTR MALIG TRUNK,EXTREM 1.1-2 CM(Performed 08/09/2021) Performed for Basal cell carcinoma (BCC) of right knee * MN DESTRUCT BENIGN LESION, 1-14(Performed 07/19/2021) Performed for Inflamed seborrheic keratosis * MN TANGNTL BX SKIN SINGLE LES(Performed 07/19/2021) Performed for Neoplasm of uncertain behavior of skin * DERMATOPATHOLOGY(Performed 07/19/2021) Performed for Neoplasm of uncertain behavior of skin * MAMMO LEFT DIAGNOSTIC(Performed 05/28/2021) Performed for Abnormal mammogram * IMAGING/RADIOLOGY/XRAY RESULTS ORDER(Performed 05/21/2021) * LIPID PROFILE(Performed 04/28/2021) * US BREAST LEFT LTD(Performed 11/27/2020) Performed for Abnormal mammogram * MAMMO LEFT DIAGNOSTIC(Performed 11/27/2020) Performed for Abnormal mammogram * MAMMO BILAT SCREENING(Performed 11/21/2020) Performed for Visit for screening mammogram * MN DESTRUCT BENIGN LESION, 1-14(Performed 11/13/2020) Performed for Inflamed seborrheic keratosis * MN PUNCH BX SKIN SINGLE LESION(Performed 11/13/2020) Performed for Neoplasm of uncertain behavior of skin * DERMATOPATHOLOGY(Performed 11/13/2020) Performed for Neoplasm of uncertain behavior of skin * HEMOGLOBIN A1C(Performed 10/31/2020) Performed for Elevated random blood glucose level * T4 FREE(Performed 10/31/2020) Performed for TSH elevation * TSH(Performed 10/31/2020) Performed for TSH elevation * TSH(Performed 02/25/2020) * LIPID PROFILE(Performed 02/25/2020) * COMPREHENSIVE METABOLIC PANEL(Performed 02/25/2020) * CBC W AUTO DIFFERENTIAL(Performed 02/25/2020) * VAS RIGHT VENOUS REFLUX(Performed 01/18/2020) Performed for Chronic edema * PAP IMAGE-GUIDED W HPV(Performed 12/28/2019) Performed for Well woman exam with routine gynecological exam * HPV DETECTION HIGH RISK TOM(Performed 12/28/2019) Performed for Well woman exam with routine gynecological exam * MAMMO BILAT SCREENING(Performed 10/24/2019) Performed for Visit for screening mammogram * MN DESTR MALIG TRUNK,EXTREM 1.1-2 CM(Performed 06/10/2019) Performed for Basal cell carcinoma of chest * MN DESTR MALIG SCAL,NCK,HAND 1.1-2 CM(Performed 06/10/2019) Performed for Basal cell carcinoma of foot, right * CULTURE AEROBIC(Performed 06/09/2019) Performed for Visit for wound check * MN DESTRUCT BENIGN LESION, 1-14(Performed 04/13/2019) Performed for Other viral warts, Inflamed seborrheic keratosis * MN TANGNTL BX SKIN SINGLE LES(Performed 04/13/2019) Performed for Neoplasm of uncertain behavior of skin * MN TANGNTL BX SKIN EA SEP ADDL(Performed 04/13/2019) Performed for Neoplasm of uncertain behavior of skin * DERMATOPATHOLOGY(Performed 04/12/2019) Performed for Neoplasm of uncertain behavior of skin * VAS RIGHT VENOUS DUPLEX LE(Performed 12/29/2018) Performed for Right leg swelling * BASIC METABOLIC PANEL (CALCIUM TOTAL)(Performed 12/01/2018) Performed for Essential hypertension, Creatinine elevation, Nephrolithiasis * URINALYSIS REFLEX TO MICROSCOPIC NO CULTURE(Performed 12/01/2018) Performed for Creatinine elevation, Nephrolithiasis * PATHOLOGY TISSUE(Performed 11/27/2018) Performed for Left ureteral stone * STONE ANALYSIS QUANT(Performed 11/27/2018) Performed for Kidney stone on left side * ENDOTRACHEAL TUBE NOTE(Performed 11/27/2018) * CYSTOSCOPY WITH INSERTION URETERAL STENT(Performed 11/27/2018) Performed for Left ureteral stone * CBC W/O DIFFERENTIAL(Performed 11/27/2018) Performed for Left flank pain * BASIC METABOLIC PANEL (CALCIUM TOTAL)(Performed 11/27/2018) Performed for CHERYL (acute kidney injury) (HCC) * CULTURE URINE(Performed 11/26/2018) * CT ABDOMEN PELVIS WO CONTRAST(Performed 11/26/2018) Performed for Left flank pain, Other microscopic hematuria * BASIC METABOLIC PANEL (CALCIUM TOTAL)(Performed 11/26/2018) * CBC W AUTO DIFFERENTIAL(Performed 11/26/2018) * HEPATITIS C AB SCREEN RFLX NAAT QUANT(Performed 11/26/2018) * HIV-1 HIV-2 ANTIGEN/ANTIBODY(Performed 11/26/2018) * URINALYSIS W/MICROSCOPIC NO CULTURE(Performed 11/26/2018) * CULTURE URINE(Performed 11/26/2018) * URINALYSIS AUTO - POINT OF CARE (AMB) SLU(Performed 11/26/2018) Performed for Left flank pain * MN DESTR MALIG TRUNK,EXTREM 0.6-1 CM(Performed 11/02/2018) Performed for Basal cell carcinoma of right upper extremity * MAMMO BILAT SCREENING(Performed 10/20/2018) Performed for Screening breast examination * MN BIOPSY OF SKIN LESION(Performed 10/01/2018) Performed for Neoplasm of uncertain behavior of skin * MN DESTRUCT BENIGN LESION, 1-14(Performed 10/01/2018) Performed for Seborrheic keratoses, inflamed * DERMATOPATHOLOGY(Performed 10/01/2018) Performed for Neoplasm of uncertain behavior of skin * HCV COMMENT(Performed 06/02/2018) Performed for Need for hepatitis C screening test * HEPATITIS C AB W RFLX VERIFICATION(Performed 06/02/2018) Performed for Need for hepatitis C screening test * URINALYSIS REFLEX TO MICROSCOPIC NO CULTURE(Performed 06/02/2018) Performed for Essential hypertension * VITAMIN D 25-HYDROXY(Performed 06/02/2018) Performed for Vitamin deficiency * LIPID PROFILE(Performed 06/02/2018) Performed for Hypercholesterolemia * BASIC METABOLIC PANEL (CALCIUM TOTAL)(Performed 06/02/2018) Performed for Essential hypertension * MAMMO BILAT SCREENING(Performed 10/12/2017) * PAP IMAGE-GUIDED W HPV(Performed 05/06/2017) * PATHOLOGY/GENETICS HISTORICAL-ONBASE(Performed 05/06/2017) * ECHO COMPLETE(Performed 05/05/2017) * URINALYSIS REFLEX TO MICROSCOPIC NO CULTURE(Performed 03/19/2017) * LIPID PROFILE(Performed 03/19/2017) * TSH(Performed 03/19/2017) * CBC W/O DIFFERENTIAL(Performed 03/19/2017) * VITAMIN D 25-HYDROXY(Performed 03/19/2017) * COMPREHENSIVE METABOLIC PANEL(Performed 03/19/2017) * URINALYSIS MICROSCOPIC ONLY REFLEXED(Performed 03/19/2017) * HEMOGLOBIN A1C - POINT OF CARE (AMB) SLU(Performed 03/17/2017) * MAMMO BILAT SCREENING(Performed 10/08/2016) * URINALYSIS REFLEX TO MICROSCOPIC NO CULTURE(Performed 02/07/2016) * MICROALB/CREAT RATIO URINE RANDOM PANEL(Performed 02/07/2016) * CBC W/O DIFFERENTIAL(Performed 02/07/2016) * TSH(Performed 02/07/2016) * COMPREHENSIVE METABOLIC PANEL(Performed 02/07/2016) * DERMATOPATHOLOGY(Performed 01/24/2016) * CULTURE AEROBIC(Performed 01/24/2016) * DERMATOPATHOLOGY(Performed 08/15/2015) * CK BLOOD(Performed 08/02/2015) * URINALYSIS REFLEX TO MICROSCOPIC NO CULTURE(Performed 08/02/2015) * LIPID PROFILE(Performed 08/02/2015) * COMPREHENSIVE METABOLIC PANEL(Performed 08/02/2015) * XR PELVIS W BILAT HIP 2VW(Performed 07/31/2015) * URINALYSIS REFLEX TO MICROSCOPIC NO CULTURE(Performed 07/31/2015) * CARDIAC RHYTHM STRIP ORDER(Performed 07/06/2015) * PATHOLOGY TISSUE EXAM (STL)(Performed 07/04/2015) Performed for Polyp of corpus uteri [621.0] * EXAM UNDER ANESTHESIA PELVIC(Performed 07/04/2015) Performed for Polyp of corpus uteri * DILATION AND CURETTAGE INCOMPLETE , ANY TRIMESTER(Performed 07/04/2015) Performed for Polyp of corpus uteri * HYSTEROSCOPY ABLATION WITH MYOSURE(Performed 07/04/2015) Performed for Polyp of corpus uteri * PATHOLOGY/GENETICS HISTORICAL-ONBASE(Performed 07/04/2015) * MAMMO BILAT SCREENING(Performed 01/26/2015) * PATHOLOGY/GENETICS HISTORICAL-ONBASE(Performed 01/25/2015) * XR KNEE RIGHT 4VW OR MORE(Performed 12/11/2014) * VAS RIGHT VENOUS DUPLEX LE(Performed 12/11/2014) * TSH(Performed 11/21/2014) * LIPID PROFILE(Performed 11/21/2014) * BASIC METABOLIC PANEL (CALCIUM TOTAL)(Performed 11/21/2014) * PATHOLOGY/GENETICS HISTORICAL-ONBASE(Performed 11/06/2014) * PATHOLOGY/GENETICS HISTORICAL-ONBASE(Performed 11/06/2014) * MAMMO BILAT SCREENING(Performed 11/06/2014) * DERMATOPATHOLOGY(Performed 03/27/2014) * URINALYSIS MICROSCOPIC ONLY REFLEXED(Performed 01/04/2014) * CBC W/O DIFFERENTIAL(Performed 01/04/2014) * URINALYSIS REFLEX TO MICROSCOPIC NO CULTURE(Performed 01/04/2014) * VITAMIN D 25-HYDROXY(Performed 01/04/2014) * LIPID PROFILE(Performed 01/04/2014) * COMPREHENSIVE METABOLIC PANEL(Performed 01/04/2014) * DEXA BONE DENSITY AXIAL SKELETON(Performed 01/04/2014) * MAMMO BILAT SCREENING(Performed 12/30/2013) * VITAMIN D 25-HYDROXY(Performed 12/28/2012) * LIPID PROFILE(Performed 12/28/2012) * COMPREHENSIVE METABOLIC PANEL(Performed 12/28/2012) * URINALYSIS W/MICROSCOPIC NO CULTURE(Performed 12/28/2012) * CBC W AUTO DIFFERENTIAL(Performed 12/28/2012) * MAMMO BILAT SCREENING(Performed 12/28/2012) * XR LUMBAR SPINE 2 OR 3VW(Performed 11/19/2012) * XR PELVIS W LEFT HIP 2VW(Performed 11/19/2012) * XR PELVIS W RIGHT HIP 2VW(Performed 11/19/2012) * TB INTRADERMAL - POCT (AMB) SLU(Performed 12/20/2010) * COMPREHENSIVE METABOLIC PANEL(Performed 11/19/2009) * LIPID PROFILE(Performed 11/19/2009) * VITAMIN D 25-HYDROXY(Performed 11/19/2009) * COMPREHENSIVE METABOLIC PANEL(Performed 11/19/2009) * LIPID PROFILE(Performed 11/19/2009) * XR CERVICAL SPINE 4 OR 5VW(Performed 04/21/2009) Performed for Observ-Accident NEC * XR KNEE LEFT 4VW OR MORE(Performed 04/21/2009) Performed for Observ-Accident NEC * URINALYSIS REFLEX TO MICROSCOPIC NO CULTURE(Performed 11/11/2008) * VITAMIN D 25-HYDROXY(Performed 11/11/2008) * COMPREHENSIVE METABOLIC PANEL(Performed 11/11/2008) * LIPID PROFILE(Performed 11/11/2008) * PAP SMEAR 1 SLIDE(Performed 11/23/1998) * TB INTRADERMAL - POCT (AMB) SLU(Performed 11/23/1998) * LIPID PROFILE(Performed 11/23/1998) * LIPID PROFILE(Performed 11/23/1998) Results * (ABNORMAL) HEMOGLOBIN A1C (12/09/2024 12:00 PM BILLET CHECKER) Only the most recent of3 resultswithin the time period is included. Hemoglobin A1c 5.8(H) 4.8 - 5.6 % [facility] INSURANCE BILL Comment: Prediabetes: 5.7 - 6.4 Diabetes: >6.4 Glycemic control for adults with diabetes: <7.0 Blood BLOOD SPECIMEN / Unknown 12/09/2024 12:00 PM BILLET CHECKER 12/09/2024 Narrative [facility] INSURANCE BILL - 12/10/2024 9:09 AM BILLET CHECKER Performed at: - [facility] [address] [id number] Buffer Inflated Pad: Amadou Mckeon PhD, Phone: [phone] Neftaly Valerio MD LAB - CHEMISTRY KRIS MAC [facility] INSURANCE BILL [address] [place] [address] * CBC WITH DIFFERENTIAL (12/09/2024 12:00 PM BILLET CHECKER) Only the most recent of5 resultswithin the time period is included. Pathologist [facility] WBC 8.9 3.4 - 10.8 x10E3/uL [facility] [...] BLOOD SPECIMEN / Unknown 12/09/2024 12:00 PM BILLET CHECKER 12/09/2024 Narrative [facility] INSURANCE BILL - 12/10/2024 9:09 AM BILLET CHECKER Performed at: [address] [id number] Buffer Inflated Pad: Amadou Mckeon PhD, Phone: [phone] Neftaly Valerio MD LAB - HEMATOLOGY ORD ERABLES [facility] INSURANCE BILL [address] [place] [address] * (ABNORMAL) COMPREHENSIVE METABOLIC PANEL (12/09/2024 12:00 PM BILLET CHECKER) Only the most recent of12 resultswithin the time period is included. Glucose 121(H) 70 - 99 mg/dL [facility] [...] BLOOD SPECIMEN / Unknown 12/09/2024 12:00 PM BILLET CHECKER 12/09/2024 Narrative [facility] INSURANCE BILL - 12/11/2024 7:07 AM BILLET CHECKER Performed at: [address] [place] [id number] Buffer Inflated Pad: Amadou Mckeon PhD, Phone: [phone] Neftaly Valerio MD LAB - CHEMISTRY KRIS MAC Performing Organization Address [facility] de Phone Number [facility] INSURANCE BILL [address] [place] [address] * (ABNORMAL) LIPID PROFILE (12/09/2024 12:00 PM BILLET CHECKER) Only the most recent of14 resultswithin the time period is included. Cholesterol 201(H) 100 - 199 mg/dL [facility] INSURANCE BILL Triglycerides 388(H) 0 - 149 mg/dL [facility] INSURANCE BILL HDL Cholesterol 50 >39 mg/dL [facility] INSURANCE BILL VLDL Calculated 63(H) 5 - 40 mg/dL [facility] INSURANCE BILL LDL Calculated 88 0 - 99 mg/dL [facility] INSURANCE BILL Blood BLOOD SPECIMEN / Unknown 12/09/2024 12:00 PM BILLET CHECKER 12/09/2024 Narrative [facility] INSURANCE BILL - 12/10/2024 3:07 PM BILLET CHECKER Performed at: [address] [place] [id number] Buffer Inflated Pad: Amadou Mckeon PhD, Phone: [phone] Neftaly Valerio MD LAB - CHEMISTRY KRIS MAC [facility] INSURANCE BILL [address] [place] [address] * Mammo Bilat Screening W Javan (12/05/2024 10:21 AM BILLET CHECKER) Only the most recent of4 resultswithin the time period is included. Anatomical Region Laterality Modality Breast Bilateral Mammography 12/05/2024 2:10 PM BILLET CHECKER Impressions 12/05/2024 2:18 PM BILLET CHECKER IMPRESSION: No mammographic evidence of malignancy in either breast. ASSESSMENT: BIRADS Category 1: Negative mammogram. RECOMMENDATION: Bilateral screening mammogram in one year. Thank you for allowing us to participate in the care of your patient. [facility] utilizes [employer] as a reminder system to notify patients of their next recommended mammogram. > Interpreting Provider: Vanessa Vazquez MD on 12/05/2024 2:18 PM Narrative 12/05/2024 2:18 PM BILLET CHECKER EXAMINATION: Digital screening mammogram. Low-dose full-field digital [...] examination. Neftaly Valerio MD MAMMO ORDERABLES * VAS Bilateral Venous Reflux (10/14/2024 10:56 AM BILLET CHECKER) Anatomical Region Laterality Modality Upper Extremity, Lower Extremity Intravascular Ultrasound 10/14/2024 9:46 AM BILLET CHECKER Narrative Procedure Note Nick Ramirez MD - 10/14/2024 Margot North MD VASCULAR LAB ORDERA BLES * (ABNORMAL) LITHOLINK 24HR URINE PANEL QUANT (08/25/2024 8:00 AM CDT) Cystine Urine Qualitative Neg Negative [facility] INSURANCE BILL Volume Urine (Preservative) 920 500 - 4,000 mL/24 hr [facility] INSURANCE BILL Calcium Oxalate Saturation 1.76(L) 6.00 - 10.00 [facility] INSURANCE BILL Calcium Urine 36 <200 mg/24 hr [facility] INSURANCE BILL Oxalate Urine 16(L) 20 - 40 mg/24 hr [facility] INSURANCE BILL Citrate Urine 459(L) >550 mg/24 hr [facility] INSURANCE BILL Calcium Phosphate Saturation 0.05(L) 0.50 - 2.00 [facility] INSURANCE BILL pH Urine 24 Hour 5.037(L) 5.800 - 6.200 [facility] INSURANCE BILL Uric Acid Saturation 1.87(H) <1.00 [facility] INSURANCE BILL Uric Acid Urine 235 <750 mg/24 hr [facility] INSURANCE BILL Sodium Urine 162(H) 50 - 150 mmol/24 hr [facility] INSURANCE BILL Potassium 24 Hour Urine 48 20 - 100 mmol/24 hr [facility] INSURANCE BILL Magnesium Urine 32 30 - 120 mg/24 hr [facility] INSURANCE BILL Phosphorus Urine 656 600 - 1,200 mg/24 hr [facility] INSURANCE BILL Ammonium Urine 17 15 - 60 mmol/24 hr [facility] INSURANCE BILL Chloride mmol/24 Hour Urine 160 70 - 250 mmol/24 hr [facility] INSURANCE BILL Sulfate Urine 39 20 - 80 meq/24 hr [facility] INSURANCE BILL Urea Nitrogen 24 Hour Urine 8.17 6.00 - 14.00 g/24 hr [facility] INSURANCE BILL Protein Catabolic Rate 0.7(L) 0.8 - 1.4 g/kg/24 hr [facility] INSURANCE BILL Creatinine Urine 897 Not Applic. mg/24 hr [facility] INSURANCE BILL Creatinine/Kg Body Weight 8.6(L) 8.7 - 20.3 mg/24 hr/kg [facility] INSURANCE BILL Calcium/Kg Body Weight 0.3 <4.0 mg/24 hr/kg [facility] INSURANCE BILL Calcium/Creatin ine Ratio Urine 41(L) 51 - 262 mg/g creat [facility] INSURANCE BILL Comment Litholink Note [facility] INSURANCE BILL Urine TIMED URINE SPECIMEN / Unknown 08/25/2024 8:00 AM CDT 08/30/2024 Narrative [facility] INSURANCE BILL - 08/31/2024 6:12 AM CDT Performed at: 01 - [facility], [place], [place] [id number] Buffer Inflated Pad: Jani Flores PhD, Phone: [phone] Josie Almonte HYBRID CORN BREEDER-SHAPER OPERATOR LAB - URINE KARLA MILTON ORDERABLES [facility] INSURANCE BILL [address] [place] [address] * CT Renal Stone (08/18/2024 7:09 AM CDT) Anatomical Region Laterality Modality Abdomen Computed Tomogra phy 08/18/2024 7:29 AM CDT Impressions 08/18/2024 2:09 PM CDT Impression: A few small nonobstructing bilateral renal stones. No hydronephrosis seen. No ureteric stones identified. Urinary bladder was empty and no bladder stones identified. > Dictated by Dk Han MD, MD (regional vice president surgical sales). I, Dereck Crum MD have personally reviewed and interpreted this examination/study. > Interpreting Provider: Dereck Crum MD on 08/18/2024 2:09 PM Narrative 08/18/2024 2:09 PM CDT PROCEDURE: CT RENAL STONE, DATE/TIME OF EXAM: 08/18/2024 7:11 AM, LOCATION [facility] INDICATION: N20.0: Kidney stone ADDITIONAL CLINICAL INFORMATION: Ordering Provider Reason For Exam: Kidney stone. Technologist Note: None. Additional: None. COMPARISON: CT abdomen pelvis on 07/12/2023, ultrasound retroperitoneal 07/27/2024. TECHNIQUE: CT of the abdomen and pelvis was performed without contrast according to renal stone protocol. MIP reformats were produced. Findings: Evaluation of visceral and vascular structures is degraded due to lack of intravenous contrast administration. Lower Chest: Coronary artery calcification. Mildly atelectasis in the middle lobe of the right lung. Liver: Within the limitations of a noncontrast examination, the liver is unremarkable. Gallbladder and Bile Ducts: Normal. Spleen: Normal. Pancreas: Normal. Adrenals: Normal. Right Genitourinary Kidney: Normal morphology. Small renal stones are seen (at least 3 stones of either to 4 mm sized). Ureter: No calculi. Obstruction/Hydronephrosis: None. Left Genitourinary Kidney: Kidney is normal morphology. There are 2 small nonobstructing stones of approximately 2 mm size are seen in the kidney. Ureter: No calculi. Obstruction/Hydronephrosis: None. Urinary Bladder: Urinary bladder was empty. No radiopaque stones is seen in the bladder lumen. Gastrointestinal: The stomach and visualized loops of large and small bowel are unremarkable. Mesentery/Peritoneum/Retroperitoneum: Normal. Reproductive Organs: The uterus is normal. Vasculature: Atherosclerotic calcification of the aorta. Bones: Degenerative changes are seen in the spine. Soft tissues: Normal. Procedure Note Dereck Crum MD - 08/18/2024 PROCEDURE: CT RENAL STONE, DATE/TIME OF EXAM: 08/18/2024 7:11 AM,LOCATION [facility] INDICATION: N20.0: Kidney stone ADDITIONAL CLINICAL INFORMATION: Ordering Provider Reason For Exam: Kidney stone. Technologist Note: None. Additional: None. COMPARISON: CT abdomen pelvis on 07/12/2023, ultrasound retroperitoneal 07/27/2024. TECHNIQUE: CT of the abdomen and pelvis was performed without contrast according to renal stone protocol. MIP reformats were produced. Findings: Evaluation of visceral and vascular structures is degraded due to lackof intravenous contrast administration. Lower Chest: Coronary artery calcification. Mildly atelectasis in the middle lobe of the right lung. Liver: Within the limitations of a noncontrast examination, the liver is unremarkable. Gallbladder and Bile Ducts: Normal. Spleen: Normal. Pancreas: Normal. Adrenals: Normal. Right Genitourinary Kidney: Normal morphology. Small renal stones are seen (at least 3stones of either to 4 mm sized). Ureter: No calculi. Obstruction/Hydronephrosis: None. Left Genitourinary Kidney: Kidney is normal morphology. There are 2 small nonobstructing stones of approximately 2 mm size are seen in the kidney. Ureter: No calculi. Obstruction/Hydronephrosis: None. Urinary Bladder: Urinary bladder was empty. No radiopaque stones is seen in the bladder lumen. Gastrointestinal: The stomach and visualized loops of large and small bowel areunremarkable. Mesentery/Peritoneum/Retroperitoneum: Normal. Reproductive Organs: The uterus is normal. Vasculature: Atherosclerotic calcification of the aorta. Bones: Degenerative changes are seen in the spine. Soft tissues: Normal. Impression: A few small nonobstructing bilateral renal stones. No hydronephrosisseen. No ureteric stones identified. Urinary bladder was empty and no bladder stones identified. > Dictated by Dk Han MD, MD (regional vice president surgical sales). I, Dereck Crum MD have personally reviewed and interpreted this examination/study. > Interpreting Provider: Derekc Crum MD on 42:09 PM Josie Almonte APRN-SHAPER OPERATOR CT ORDERABLES * REF LAB-SPECIMEN STATUS REPORT (08/10/2024 10:15 AM CDT) Specimen Status Report Comment [facility] INSURANCE BILL Comment: Ambig Abbrev BMP8 Default Ambig Abbrev BMP8 Default A hand-written panel/profile was received from your office. In accordance with the [employer] [facility] Ambiguous Test Code Policy dated May 2003, we have completed your order by using the closest currently or formerly recognized AMA panel. We have assigned Basic Metabolic Panel (8), Test Code #007225 to this request. If this is not the testing you wished to receive on this specimen, please contact the [employer] Client Inquiry/Technical Services Department to clarify the test order. We appreciate your business. 08/10/2024 10:1 5 AM CDT 08/10/2024 Narrative [facility] INSURANCE BILL - 08/11/2024 7:11 AM CDT Performed at: - [address] [id number] Buffer Inflated Pad: Amadou Mckeon PhD, Phone: [phone] Josie Almonte APRN-SHAPER OPERATOR LAB - CHEMISTRY ORDERABLES [facility] INSURANCE BILL [address] [place] [address] * (ABNORMAL) URIC ACID BLOOD (08/10/2024 10:15 AM CDT) Uric Acid 9.2(H) 3.0 - 7.2 mg/dL [facility] INSURANCE BILL Comment:Therapeutic target f or gout patients: <6.0 08/10/2024 10:1 5 AM CDT 08/10/2024 Narrative [facility] INSURANCE BILL - 08/11/2024 7:11 AM CDT Performed at: [address] [place] [id number] Buffer Inflated Pad: Amadou Mckeon PhD, Phone: [phone] Josie Almonte HYBRID CORN BREEDER-SHAPER OPERATOR LAB - CHEMISTRY ORDERABLES Performing Organization Address [facility] Co de Phone Number [facility] INSURANCE BILL [address] [place] [address] * PTH INTACT (08/10/2024 10:15 AM CDT) PTH Intact 59 15 - 65 pg/mL [facility] INSURANCE BILL Blood BLOOD SPECIMEN / Unknown 08/10/2024 10:15 AM CDT 08/10/2024 Narrative [facility] INSURANCE BILL - 08/11/2024 11:14 AM CDT Performed at: [address] [place] [id number] Buffer Inflated Pad: Amadou Mckeon PhD, Phone: [phone] Josie Almonet HYBRID CORN BREEDER-SHAPER OPERATOR LAB - CHEMISTRY ORDERABLES Performing Organization Address City/[facility] Co de Phone Number [facility] INSURANCE BILL [address] [place] [address] * (ABNORMAL) BASIC METABOLIC PANEL (CALCIUM TOTAL) (08/10/2024 10:15 AM CDT) Only the most recent of6 resultswithin the time period is included. Glucose 107(H) 70 - 99 mg/dL [facility] INSURANCE BILL BUN 24 8 - 27 mg/dL [facility] INSURANCE BILL Creatinine 1.27(H) 0.57 - 1.00 mg/dL [facility] INSURANCE BILL eGFR by CKD-EPI 46(L) >59 mL/min/1.7 3 [facility] INSURANCE BILL BUN/Creatinine Ratio 19 - 28 [facility] INSURANCE BILL Sodium 141 134 - 144 mmol/L [facility] INSURANCE BILL Potassium 4.3 3.5 - 5.2 mmol/L [facility] INSURANCE BILL Chloride 104 96 - 106 mmol/L [facility] INSURANCE BILL CO2 22 20 - 29 mmol/L [facility] INSURANCE BILL Calcium 9.8 8.7 - 10.3 mg/dL [facility] INSURANCE BILL 08/10/2024 10:1 5 AM CDT 08/10/2024 Narrative [facility] INSURANCE BILL - 08/11/2024 7:11 AM CDT Performed at: - [facility] [address] [place], [place] [id number] Buffer Inflated Pad: Amadou Mckeon PhD, Phone: [phone] Josie Almonte HYBRID CORN BREEDER-SHAPER OPERATOR LAB - CHEMISTRY ORDERABLES [facility] INSURANCE BILL [address] [place] [address] * URINALYSIS AUTO - POINT OF CARE (AMB) [facility] (07/27/2024 10:56 AM CDT) Only the most recent of6 resultswithin the time period is included. Glucose UA - [facility] [address] Bilirubin UA POCT - [facility] [address] Ketones UA POCT - [facility] [address] Specific [place] UA 1.[address] [facility] [address] Blood Urine POCT - [facility] [address] pH UA 5.[address] [facility] [address] Protein UA + [facility] [address] Urobilinogen UA - [facility] [address] Nitrite UA - [facility] [address] WBC UA - [facility] [address] Urine URINE / Unknown 07/27/2024 1 0:56 AM CDT Josie Almonte HYBRID CORN BREEDER-SHAPER OPERATOR LAB - POINT OF CARE ORDERABLES [facility] [address] [address], [facility] [phone] * US RETROPERITONEAL COMPLETE (07/27/2024 10:08 AM CDT) Only the most recent of2 resultswithin the time period is included. Anatomical Region Laterality Modality Abdomen Ultrasound 07/27/2024 10:1 2 AM CDT Impressions 07/27/2024 10:13 AM CDT IMPRESSION: Nonobstructing bilateral renal calculi. > Interpreting Provider: Nick Barber DO on 07/27/2024 10:13 AM Narrative 07/27/2024 10:13 AM CDT Renal Ultrasound INDICATION: Kidney stones COMPARISON: None TECHNIQUE: Grayscale and color images of the kidneys and bladder were obtained FINDINGS: The kidneys which are normal size, shape and echotexture without mass or cyst. No hydronephrosis is noted. Nonobstructing calculi are noted bilaterally measuring up to 1 cm. The bladder is nondistended. Procedure Note Nick Barber DO - 07/27/2024 Renal Ultrasound INDICATION: Kidney stones COMPARISON: None TECHNIQUE: Grayscale and color images of the kidneys and bladder were obtained FINDINGS: The kidneys which are normal size, shape and echotexture without mass or cyst. No hydronephrosis is noted. Nonobstructing calculi are noted bilaterally measuring up to 1 cm. The bladder is nondistended. IMPRESSION: Nonobstructing bilateral renal calculi. > Interpreting Provider: Nick Barber DO on 07/27/2024 10:13 AM Josie Almonte HYBRID CORN BREEDER-SHAPER OPERATOR US ORDERABLES * IMMUNOSCORE IGE INTERP (12/04/2023 1:13 PM BILLET CHECKER) Immunocap Score See Note 6:12 AM BILLET CHECKER [facility] ([facility]) Comment: REFERENCE INTERVAL: Allergen, Interpretation Less than 0.10 kU/L......Class 0.....No significant level detected 0.10-0.34 kU/L...........Class 0/1...Clinical relevance undetermined 0.35-0.70 kU/L...........Class 1.....Low 0.71-3.50 kU/L...........Class 2.....Moderate 3.51-17.50 kU/L..........Class 3.....High 17.51-50.00 kU/L.........Class 4.....Very High 50.01-100.00 kU/L........Class 5.....Very High Greater than 100.00kU/L..Class 6.....Very High Allergen results of 0.10-0.34 kU/L are intended for specialist use as the clinical relevance is undetermined. Even though increasing ranges are reflective of increasing concentrations of allergen-specific IgE, these concentrations may not correlate with the degree of clinical response or skin testing results when challenged with a specific allergen. The correlation of allergy laboratory results with clinical history and in vivo reactivity to specific allergens is essential. A negative test may not rule out clinical allergy or even anaphylaxis. Performed By: Dress Code [address] [place] [address] Construction Management Assistant: Onofre Orta MD, PhD CLIA Number: [id number] Blood BLOOD SPECIMEN / Unknown Lab Venipuncture / Unknown 12/04/2023 1:13 PM BILLET CHECKER 12/04/2023 1:34 PM BILLET CHECKER Aaron Bateman MD LAB - SEROLOGY ORDER KALA [facility]) [address] [place] [address], [facility] * ALLERGEN RESPIRATORY PNL REGION 8 ([place]) (12/04/2023 1:13 PM BILLET CHECKER) [facility] IgE Total <2 <=214 kU/L 12/06/2023 6:03 AM BILLET CHECKER [facility] ([facility]) Comment: REFERENCE INTERVAL: Immunoglobulin E, Serum Access complete set of age- and/or gender-specific reference intervals for this test in the [facility] Test Directory ([employer]leaf). Allergen Metcalf Elder <0.10 <=0.34 kU/L 12/06/2023 6:03 AM BILLET CHECKER [facility] ([facility]) Allergen Alternaria alternata <0.10 <=0.34 kU/L 12/06/2023 6:03 AM BILLET CHECKER [facility] ([facility]) Allergen Merrimac Maple <0.10 <=0.34 kU/L 12/06/2023 6:03 AM BILLET CHECKER [facility]) Allergen Cat Dander <0.10 <=0.34 kU/L 12/06/2023 6:03 AM BILLET CHECKER [facility] ([facility]) Allergen Mountain [place] <0.10 <=0.34 kU/L 12/06/2023 6:03 AM BILLET CHECKER [facility] ([facility]) Allergen Wilcox Tree <0.10 <=0.34 kU/L 12/06/2023 6:03 AM BILLET CHECKER [facility] ([facility]) Allergen Rough Pigweed <0.10 <=0.34 kU/L 12/06/2023 6:03 AM BILLET CHECKER [facility]) Allergen Bangladeshi Thistle <0.10 <=0.34 kU/L 12/06/2023 6:03 AM BILLET CHECKER [facility] ([facility]) Allergen Julio Grass <0.10 <=0.34 kU/L 12/06/2023 6:03 AM BILLET CHECKER [facility]) Allergen Hormodendrum <0.10 <=0.34 kU/L 12/06/2023 6:03 AM BILLET CHECKER [facility]) Allergen Elm <0.10 <=0.34 kU/L 12/06/2023 6:03 AM BILLET CHECKER [facility]) Allergen P[place] <0.10 <=0.34 kU/L 12/06/2023 6:03 AM BILLET CHECKER [facility] ([facility]) Allergen A fumigatus IgE <0.10 <=0.34 kU/L 12/06/2023 6:03 AM BILLET CHECKER [facility]) Allergen Dermatophagoides pteronyssinus <0.10 <=0.34 kU/L 12/06/2023 6:03 AM BILLET CHECKER [facility]) Allergen Dermatophagoides farinae <0.10 <=0.34 kU/L 12/06/2023 6:03 AM BILLET CHECKER [facility] ([facility]) Allergen Bermuda Grass <0.10 <=0.34 kU/L 12/06/2023 6:[address] [facility]) Allergen White [place] <0.10 <=0.34 kU/L 12/06/2023 6:[address] [facility]) Allergen P. Notatum <0.10 <=0.34 kU/L 12/06/2023 6:[address] [facility]) Allergen Common Ragweed <0.10 <=0.34 kU/L 12/06/2023 6:[address] [facility]) Allergen Cockroach Icelandic <0.10 <=0.34 kU/L 12/06/2023 6:[address] [facility]) Allergen Iona Tree <0.10 <=0.34 kU/L 12/06/2023 6:[address] [facility]) Allergen [place] Tree <0.10 <=0.34 kU/L 12/06/2023 6:[address] [facility]) Allergen Pecan Tree <0.10 <=0.34 kU/L 12/06/2023 6:[address] [facility]) Allergen Mouse Epithelium IgE <0.10 <=0.34 kU/L 12/06/2023 6:[address] [facility]) Allergen Mucor racemosus <0.10 <=0.34 kU/L 12/06/2023 6:[address] [facility]) Allergen White [place] Tree IgE <0.10 <=0.34 kU/L 12/06/2023 6:[address] [facility]) Allergen Dog Dander <0.10 <=0.34 kU/L 12/06/2023 6:[address] [facility]) Comment: Performed By: Dress Code [address] [place] [id number] Construction Management Assistant: Onofre Orta MD, PhD CLIA Number: [id number] Blood BLOOD SPECIMEN / Unknown Lab Venipuncture / Unknown 12/04/2023 1:13 PM BILLET CHECKER 12/04/2023 1:34 PM BILLET CHECKER Aaron Bateman MD LAB - CHEMISTRY KRIS MAC [facility] ([facility]) [address] [place] [place] [phone], [facility] * MN DESTR MALPAM TRUNK,EXTREM 1.1-2 CM (11/11/2023 10:48 AM BILLET CHECKER) Narrative Paco Foreman MD - 11/11/2023 10:48 AM BILLET CHECKER Paco Foreman MD 11/11/2023 10:56 AM PROCEDURE: Electrodessication and Curettage Patient was educated on purpose, risks/benefits and potential adverse effects, 100% chance of scar, statistics of cure, small chance of infection and recurrence. Informed consent obtained. A time out was performed immediately prior to the procedure: patient and provider/staff verbally confirmed correct patient, correct site, and correct procedure. ATTENDING PHYSICIAN: Dr. Paco Foreman SURGEON: Chas German MD DIAGNOSIS: Basal Cell Carcinoma LOCATION: Right lower back SIZE OF LESION PRE-OP: 1.3 cm The surgical site was prepped with alcohol. Anesthesia: Lidocaine 1% with epinephrine locally injected. Curettage was performed with 4 mm curette over entire lesion in three different directional axis' Electrodessication was then performed to entire wound bed. SIZE AFTER FIRST PASS: 1.5 cm The above curettage and electrodessication technique was repeated twice more over the lesion. DRESSING: Plain Vaseline petroleum jelly and Band-Aid. Wound care instructions were given to the patient both orally and in writing. Patient tolerated the procedure well. Chas German MD [facility] Dermatology Resident A procedure was performed. I was present for the entire procedure. I have reviewed the note and edited it as necessary. Date of Service : 11/11/2023 Paco Foreman MD Paco Foreman MD PROCEDURE/MINOR SURG ICAL ORDERABLES * XR CHEST 2VW (10/23/2023 11:17 AM BILLET CHECKER) Anatomical Region Laterality Modality Chest Radiographic Rossana ging 10/23/2023 11:2 4 AM BILLET CHECKER Narrative 10/23/2023 2:14 PM BILLET CHECKER PROCEDURE: XR CHEST 2VW, DATE/TIME OF EXAM: 10/23/2023 11:17 AM, LOCATION [facility] INDICATION: R05.3: Chronic cough COMPARISON: CT abdomen pelvis 06/23/2023. TECHNIQUE: Frontal and lateral radiograph of the chest. FINDINGS/IMPRESSION: Bibasilar atelectatic changes. There is no focal consolidation, pleural effusion, or pneumothorax. The cardiomediastinal silhouette is normal. The visible bony thorax is intact. Report dictated by Lamine Leiva MD, MD (regional vice president surgical sales). ISilvestre MD have personally reviewed and interpreted this examination/study. > Interpreting Provider: Silvestre Schwartz MD on 10/23/2023 2:14 PM Procedure Note Silvestre Schwartz MD - 10/23/2023 PROCEDURE: XR CHEST 2VW, DATE/TIME OF EXAM: 10/23/2023 11:17 AM, LOCATION [facility] INDICATION: R05.3: Chronic cough COMPARISON: CT abdomen pelvis 06/23/2023. TECHNIQUE: Frontal and lateral radiograph of the chest. FINDINGS/IMPRESSION: Bibasilar atelectatic changes. There is no focal consolidation, pleural effusion, or pneumothorax. The cardiomediastinal silhouette is normal.The visible bony thorax is intact. Report dictated by Lamine Leiva MD, MD (regional vice president surgical sales). Silvesrte Saldivar MD have personally reviewed and interpreted this examination/study. > Interpreting Provider: Silvestre Schwartz MD on 10/23/2023 2:14 PM [place] HYBRID CORN BREEDER-SHAPER OPERATOR DIAGNOSTIC I MAGING ORDERABLES * MN MSR PVR U&/BLADD CAPCTY US NON (09/28/2023 11:05 AM BILLET CHECKER) Narrative Kaitlin Sanchez MA - 09/28/2023 11:05 AM BILLET CHECKER Kaitlin Sanchez MA 09/28/2023 11:05 AM Bladder scan completed. 24ml post void residual. Josie Almonte HYBRID CORN BREEDER-SHAPER OPERATOR PROCEDURE/MINOR SURGICAL ORDERABLES * MN TANGNTL BX SKIN SINGLE LES (09/04/2023 9:38 AM CDT) Narrative Robyn Babcock MD - 09/04/2023 9:38 AM CDT Horacio Barnes MD 09/04/2023 9:40 AM Risks, benefits and alternatives to shave biopsy were discussed with the patient. Verbal consent obtained. Location: R lower back Skin prep: Alcohol Anesthesia: 1% lidocaine with epinephrine Hemostasis: Aluminum Chloride Dressing and wound care discussed. Patient agrees to phone call for results and message if not available. Horacio Barnes MD Dermatology Resident PGY-2 Robyn Babcock MD PROCEDURE/MINOR SURG ICAL ORDERABLES * DERMATOPATHOLOGY (09/04/2023 9:38 AM CDT) Only the most recent of9 resultswithin the time period is included. Case Report Dermatopathology Report Case: [id number] Authorizing Provider: Robyn Babcokc MD Collected: 09/04/2023 09:38 AM Ordering Location: [facility] Received: 09/07/2023 11:48 AM Dermatology Pathologist: Olesya Clifton MD Specimen: Skin, right lower back 5:04 PM CDT DERMATOPATHOLOGY LABORATORY Final Diagnosis Specimen A. SKIN, right lower back: BASAL CELL CARCINOMA, SUPERFICIAL MULTIFOCAL (C44.519) 5:04 PM CDT DERMATOPATHOLOGY LABORATORY Clinical History R/O BCC 5:04 PM CDT DERMATOPATHOLOGY LABORATORY Gross Description Specimen A: Received is one formalin filled container labeled with the patient's name and designated right lower back. The specimen consists of a shave biopsy measuring 11x7x1 mm. Jar 0. 5:04 PM CDT DERMATOPATHOLOGY LABORATORY Microscopic Description Specimen A. SKIN, right lower back: Attached to the undersurface of the epidermis, there are small aggregates of basaloid cells with a high nuclear to cytoplasmic ratio and peripheral palisading. 5:04 PM CDT DERMATOPATHOLOGY LABORATORY Disclaimer An external and internal positive and negative controls are appropriate for the histochemical, immunohistochemical and immunofluorescence stain(s) in this case (if any), except where stated explicitly. The performance characteristics of the stain(s) cited in this report were developed and its performance characteristic determined by the Dermatopathology Laboratory at [facility], directed by Dr. Alfa Hawley. These tests need not be, and therefore are not, approved by the [place] Food and Drug Administration. The tests are used for clinical purposes. Billing Codes Specimen Charges Stain Charges 66772 1 3 5:04 PM CDT DERMATOPATHOLOGY LABORATORY Embedded Images 3 5:04 PM CDT DERMATOPATHOLOGY LABORATORY Pathology/Cytolo gy TISSUE SPECIMEN FROM SKIN / Unknown 09/04/2023 9:38 AM CDT 09/07/2023 11:48 AM CDT [place] Amaris Babcock MD LAB - PATHOLOGY/CYTO LOGY ORDERABLES DERMATOPATHOLOGY LABORATORY [facility] - Department of Dermatology [address], [address] [phone] * URINALYSIS MICROSCOPIC ONLY REFLEXED (06/06/2023 11:58 AM CDT) Only the most recent of3 resultswithin the time period is included. WBC UA None seen 0 - 5 /hpf [facility] INSURANCE BILL RBC UA 0-2 0 - 2 /hpf [facility] INSURANCE BILL Epithelial Cells (non renal) 0-10 0 - 10 /hpf [facility] INSURANCE BILL Epithelial Cells (renal) NOT AVAILABLE [facility] INSURANCE BILL Comment:Result cannot be obt ained for this observation. Casts ua None seen None seen /lpf [facility] INSURANCE BILL Casts UA NOT AVAILABLE [facility] INSURANCE BILL Comment:Result cannot be obt ained for this observation. Crystals UA NOT AVAILABLE [facility] INSURANCE BILL Comment:Result cannot be obt ained for this observation. Crystals UA NOT AVAILABLE [facility] INSURANCE BILL Comment:Result cannot be obt ained for this observation. Mucus UA NOT AVAILABLE [facility] INSURANCE BILL Comment:Result cannot be obt ained for this observation. Bacteria UA None seen None seen/Few [facility] INSURANCE BILL Yeast UA NOT AVAILABLE [facility] INSURANCE BILL Comment:Result cannot be obt ained for this observation. Trichomonas UA NOT AVAILABLE [facility] INSURANCE BILL Comment:Result cannot be obt ained for this observation. Comment Urine NOT AVAILABLE [facility] INSURANCE BILL Comment:Result cannot be obt ained for this observation. 06/06/2023 11:5 8 AM CDT 06/06/2023 Narrative Resulting Agency Comment Lab Testing performed at: [place] [id number] [facility] [phone] Josie Almonte HYBRID CORN BREEDER-SHAPER OPERATOR LAB - URINALYSI S ORDERABLES Performing Organization Address City/[facility]/ZIP Co de Phone Number [facility] INSURANCE BILL [address] [place] [address] * URINALYSIS W/MICROSCOPIC REFLEX TO CULTURE (06/06/2023 11:58 AM CDT) Only the most recent of2 resultswithin the time period is included. Specific [place] UA 1.020 1.005 - 1.030 [facility] INSURANCE BILL pH UA 7.5 5.0 - 7.5 [facility] INSURANCE BILL Color UA Yellow Yellow [facility] INSURANCE BILL Appearance Clear Clear [facility] INSURANCE BILL Leukocyte UA Negative Negative [facility] INSURANCE BILL Protein UA Negative Negative/Tra ce [facility] INSURANCE BILL Glucose UA Negative Negative [facility] INSURANCE BILL Ketone UA Negative Negative [facility] INSURANCE BILL Occult Blood Urine Negative Negative [facility] INSURANCE BILL Bilirubin UA Negative Negative [facility] INSURANCE BILL Urobilinogen 0.2 0.2 - 1.0 mg/dL [facility] INSURANCE BILL Nitrite UA Negative Negative [facility] INSURANCE BILL Microscopic Examination Urine [facility] INSURANCE BILL Comment:Microscopic follows if indicated. Microscopic Examination Urine See below: [facility] INSURANCE BILL Comment:Microscopic was trung cated and was performed. Urinalysis Reflex [facility] INSURANCE BILL Comment:This specimen will n ot reflex to a Urine Culture. Urine URINE SPECIMEN OBTAINED BY CLEAN CATCH PROCEDURE / Unknown 06/06/2023 11:58 AM CDT 06/06/2023 Narrative Resulting Agency Comment Lab Testing performed at: [address] [phone] Josie Almonte HYBRID CORN BREEDER-SHAPER OPERATOR LAB - URINALYSI S ORDERABLES Performing Organization Address City/[facility]/ZIP Co de Phone Number [facility] INSURANCE BILL [address] [place] [address] * (ABNORMAL) URINALYSIS W/MICROSCOPIC NO CULTURE (04/17/2023 11:27 AM [facility]) Only the most recent of3 resultswithin the time period is included. Color UA Yellow Straw, Yellow 04/17/2023 12:02 PM [facility] Clarity UA t Cloudy(A) Clear 04/17/2023 12:02 PM [facility] Specific [place] UA 1.016 1.005 - 1.030 04/17/2023 12:02 PM [facility] pH UA 5.0 5.0 - 8.0 pH 04/17/2023 12:02 PM [facility] Protein UA Negative Negative 04/17/2023 12:02 PM [facility] Glucose UA Negative Negative 04/17/2023 12:02 PM [facility] Ketone UA Negative Negative 04/17/2023 12:02 PM [facility] Bilirubin UA Negative Negative 04/17/2023 12:02 PM [facility] Blood UA Negative Negative 04/17/2023 12:02 PM [facility] Nitrite UA Negative Negative 04/17/2023 12:02 PM [facility] Leukocyte Esterase Negative Negative 04/17/2023 12:02 PM [facility] Urobilinogen UA Negative Negative mg/dL 04/17/2023 12:02 PM [facility] RBC UA 0-2 None Seen, 0-2, 3-5 /HPF 04/17/2023 12:02 PM [facility] WBC UA 0-5 None Seen, 0-5 /HPF 04/17/2023 12:02 PM [facility] Squamous Epithelial Cells UA 0-2 None Seen, 0-2, 3-5 /HPF 04/17/2023 12:02 PM [facility] Mucus UA 1+ /LPF 04/17/2023 12:02 PM [facility] Urine MID-STREAM URINE SPECIMEN / Unknown Collection / Unknown 04/17/2023 11:27 AM [facility] 04/17/2023 12:02 PM [facility] - 04/17/2023 12:02 PM CDT Gala Post HYBRID CORN BREEDER-[facility] LAB - URINAL YSIS ORDERABLES [facility] [address] [place] [address], [facility] [phone] * HEMOGLOBIN A1C - POINT OF CARE (AMB) [facility] (04/17/2023 10:59 AM CDT) Only the most recent of2 resultswithin the time period is included. Pathologist [facility] Hemoglobin A1c POCT 5.7 % [address] BLOOD SPECIMEN / Unknown 04/17/2023 10:59 AM CDT Gala Post [facility] - POINT OF CARE ORDERABLES Performing Organization Address City/[facility]/ZIP Co de Phone Number [address] [facility] [place] [address], [facility] [phone] * HPV DETECTION HIGH RISK TOM (03/02/2023 10:35 AM CDT) Only the most recent of2 resultswithin the time period is included. Pathologist [facility] High Risk Human Papilloma Result Not detected Not detected 03/06/2023 4:49 PM CDT [facility] High Risk Human Papilloma Interp 03/06/2023 4:49 PM CDT [facility] Comment:High Risk Human Ayden lloma Virus was Not Detected. Pathology/Cytolo gy MISCELLANEOUS SAMPLES / Unknown 03/02/2023 10:35 AM CDT 03/03/2023 11:18 AM CDT Narrative [facility] - 03/06/2023 4:49 PM CDT Nucleic acid isolated from the specimen was analyzed with a nucleic acid amplification test (FDA approved Gen-Probe HPV Assay) to detect high risk human papilloma virus (Types: 16, 18, 31, 33, 35, 39, 45, 51, 52, 56, 58, 59, 66, and 68). The reference range is Not Detected . Comment: These test results should not be used as the sole basis for clinical assessment and treatment of patients. These results should always be correlated with other available data (cytology, histology, and clinical information). Titus Kong MD LAB - MICROBIOLOGY O RDERABLES [facility] [address] [place] [address], [facility] [phone] * PAP IMAGE-GUIDED W HPV (03/02/2023 10:35 AM CDT) Only the most recent of3 resultswithin the time period is included. Case Report Gynecologic Cytology Report Case: [id number] Authorizing Provider: Titus Kong MD Collected: 03/02/2023 10:35 AM Ordering Location: [facility] Obstetrics Received: 03/03/2023 11:18 AM [facility] First Screen: Alejandro Landon Specimen: THINPREP - IMAGE GUIDED, Cervix/Endocervix 03/10/2023 6:36 AM CDT [facility] LMP n/a 03/10/2023 6:36 AM CDT [facility] Menstrual Status Postmenopausal 02/21 6:36 AM CDT [facility] Specimen Adequacy Satisfactory for evaluation, endocervical/trans formation zone component present. 03/10/2023 6:36 AM CDT [facility] Categorization Negative for intraepithelial lesion or malignancy. 03/10/2023 6:36 AM CDT [facility] Interpretation SPECIAL PROJECTS COORDINATOR Negative for intraepithelial lesion or malignancy. 03/10/2023 6:36 AM CDT [facility] Other Inflammation present. 03/10/2023 6:36 AM CDT [facility] Pap Footnote The Pap Smear is a screening test. False positive and false negative results occur. Negative results do not preclude abnormalities, thus clinical correlation is required. This specimen was evaluated by the ThinPrep Imaging System along with an additional manual rescreening by a humanities instructor and/or pathologist. 03/10/2023 6:36 AM CDT [facility] Embedded Images 6:36 AM CDT [facility] Pathology/Cytolo gy MISCELLANEOUS SAMPLES / Unknown 03/02/2023 10:35 AM CDT 03/03/2023 11:18 AM CDT Titus Kong MD LAB - PATHOLOGY/CYTO LOGY ORDERABLES [facility] [address] [phone] * RHEUMATOID FACTOR BLOOD QUANTITATIVE (09/13/2022 8:44 AM CDT) Rheumatoid Factor <10.0 <14.0 IU/mL [facility] INSURANCE BILL Comment:FASTING 09/13/2022 8:44 AM CDT 09/13/2022 Narrative Resulting Agency Comment Lab Testing performed at: [facility] [address] [facility] [phone] Razia Coles APRN-SHAPER OPERATOR LAB - CHEMISTRY OR DERABLES [facility] INSURANCE BILL [address] [place] [address] * VITAMIN D 25-HYDROXY (09/13/2022 8:44 AM CDT) Only the most recent of8 resultswithin the time period is included. Vitamin D, 25 Hydroxy 49.4 30.0 - 100.0 ng/mL [facility] INSURANCE BILL Comment: Vitamin D deficiency has been defined by the [place] of Medicine and an Endocrine Society practice guideline as a level of serum 25-OH vitamin D less than 20 ng/mL (1,2). The Endocrine Society went on to further define vitamin D insufficiency as a level between 21 and 29 ng/mL (2). 1. IOM ([place] of Medicine). 2010. Dietary reference intakes for calcium and D. [place]: The National Academies Press. 2. Peggy MF, Radu VELEZ, Cara MCDONOUGH, et al. Evaluation, treatment, and prevention of vitamin D deficiency: an Endocrine Society clinical practice guideline. JCEM. 2010; 96(7):1911-30. FASTING 09/13/2022 8:44 AM CDT 09/13/2022 Narrative Resulting Agency Comment Lab Testing performed at: [place] [id number] [facility] [phone] Razia Coles APRN-SHAPER OPERATOR LAB - CHEMISTRY OR DERABLES Performing Organization Address City/[facility]/ZIP Co de Phone Number [facility] INSURANCE BILL [address] [place] [address] * CBC W/O DIFFERENTIAL (09/13/2022 8:44 AM CDT) Only the most recent of5 resultswithin the time period is included. WBC 7.9 3.4 - 10.8 x10E3/uL [facility] INSURANCE BILL RBC 4.40 3.77 - 5.28 x10E6/uL [facility] INSURANCE BILL Hemoglobin 13.0 11.1 - 15.9 g/dL [facility] INSURANCE BILL Hematocrit 39.4 34.0 - 46.6 % [facility] INSURANCE BILL MCV 90 79 - 97 fL [facility] INSURANCE BILL MCH 29.5 26.6 - 33.0 pg [facility] INSURANCE BILL MCHC 33.0 31.5 - 35.7 g/dL [facility] INSURANCE BILL RDW 13.4 11.7 - 15.4 % [facility] INSURANCE BILL Platelet Count 283 150 - 450 x10E3/uL [facility] INSURANCE BILL nRBC NOT AVAILABLE [facility] INSURANCE BILL Comment: FASTING Result cannot be obtained for this observation. 09/13/2022 8:44 AM CDT 09/13/2022 Narrative Resulting Agency Comment [facility]: [facility] [address] [facility] [phone] Razia Coles APRN-SHAPER OPERATOR LAB - HEMATOLOGY O RDERABLES Performing Organization Address City/[facility]/ZIP Co de Phone Number [facility] INSURANCE BILL [address] [place] [address] * TSH (09/13/2022 8:44 AM CDT) Only the most recent of6 resultswithin the time period is included. TSH 2.330 0.450 - 4.500 uIU/mL [facility] Comment:FASTING 09/13/2022 8:44 AM CDT 09/13/2022 Narrative Resulting Agency Comment Lab Testing performed at: [facility] [address] [facility] [phone] Razia Coles HYBRID CORN BREEDER-SHAPER OPERATOR LAB - CHEMISTRY OR DERABLES [facility] INSURANCE BILL [address] [place] [address] * (ABNORMAL) CULTURE URINE (03/21/2022 3:02 PM CDT) Only the most recent of3 resultswithin the time period is included. Culture Urine >100,000 CFU/mL Escherichia coli(A) DOUGLAS 03/23/2022 8:37 AM CDT [facility] Culture Urine >100,000 CFU/mL urogenital sandra DOUGLAS 03/23/2022 8:37 AM CDT [facility] Urine URINE SPECIMEN OBTAINED BY CLEAN CATCH PROCEDURE / Unknown Collection / Unknown 03/21/2022 3:02 PM CDT 03/21/2022 3:47 PM CDT Narrative Organism Antibiotic Method Susceptibility Escherichia coli Amikacin DOUGLAS <=2 ug/mL: Susceptible Escherichia coli Ampicillin DOUGLAS <=2 ug/mL: Susceptible Escherichia coli Ampicillin-sulbactam DOUGLAS <=2 ug/mL: Susceptible Escherichia coli Cefazolin DOUGLAS <=4 ug/mL: See Comment* Escherichia coli Cefazolin-Urine (uncomplicated infections ONLY) DOUGLAS <=4 ug/mL: Susceptible Escherichia coli Cefepime DOUGLAS <=1 ug/mL: Susceptible Escherichia coli Ceftriaxone DOUGLAS <=1 ug/mL: Susceptible Escherichia coli Ciprofloxacin DOUGLAS <=0.25 ug/mL: Susceptible Escherichia coli Extended-Spectrum Beta-Lactamase DOUGLAS NEG ug/mL: Neg Escherichia coli Gentamicin DOUGLAS <=1 ug/mL: Susceptible Escherichia coli Meropenem DOUGLAS <=0.25 ug/mL: Susceptible Escherichia coli Nitrofurantoin DOUGLAS <=16 ug/mL: Susceptible Escherichia coli Piperacillin-tazobactam DOUGLAS <=4 ug/mL: Susceptible Escherichia coli Tobramycin DOUGLAS <=1 ug/mL: Susceptible Escherichia coli Trimethoprim-sulfame thoxaz ole DOUGLAS <=20 ug/mL: Susceptible Comment: *Cefazolin DOUGLAS of </=4 cannot distinguish between susceptible or intermediate for systemic breakpoints. If further defined interpretation is needed, call Microbiology and a disk diffusion test will be performed. Urine breakpoints for cefazolin should only be used when treating uncomplicated UTIs including men and women without urologic abnormality, kidney stones, stents, nephrostomy tubes, signs/symptoms of systemic illness, or pelvic/perineal pain in men. Cefazolin results can be used to predict susceptibility to oral cephalosporins - cephalexin, cefprozil, cefaclor, cefuroxime, cefdinir, and cefpodoxime. For complicated UTIs, use alternative cefazolin susceptibility result above. Josie Almonte HYBRID CORN BREEDER-SHAPER OPERATOR LAB - MICROBIOL OGY ORDERABLES [facility] [address] [facility] [address] JainWishram, [address] [phone] * MN TANGNTL BX SKIN SINGLE LES (01/17/2022 12:43 PM BILLET CHECKER) Narrative Robyn Babcock MD - 01/17/2022 12:43 PM BILLET CHECKER Elmer Foss MD 01/17/2022 12:44 PM Risks, benefits and alternatives to shave biopsy were discussed with the patient. Verbal consent was obtained. Location: R medial posterior shoulder Skin prep: Alcohol Anesthesia: 1% lidocaine with epinephrine Hemostasis: Aluminum chloride Dressing and wound care discussed. Specimen(s) placed in a patient labeled container and sent to dermatopathology. Patient agrees to phone call for results and message if not available. Elmer Foss MD [facility] Dermatology Resident, PGY-II Robyn Babcock MD PROCEDURE/MINOR SURG ICAL ORDERABLES * URINALYSIS REFLEX TO MICROSCOPIC NO CULTURE (10/28/2021 9:13 AM BILLET CHECKER) Only the most recent of9 resultswithin the time period is included. Specific [place] UA 1.020 1.005 - 1.030 [facility] INSURANCE BILL pH UA 5.0 5.0 - 7.5 [facility] INSURANCE BILL Color UA Yellow Yellow [facility] INSURANCE BILL Appearance Clear Clear [facility] INSURANCE BILL Leukocyte UA Negative Negative [facility] INSURANCE BILL Protein UA Negative Negative/Tra ce [facility] INSURANCE BILL Glucose UA Negative Negative [facility] INSURANCE BILL Ketone UA Negative Negative [facility] INSURANCE BILL Occult Blood Urine Negative Negative [facility] INSURANCE BILL Bilirubin UA Negative Negative [facility] INSURANCE BILL Urobilinogen 0.2 0.2 - 1.0 mg/dL [facility] INSURANCE BILL Nitrite UA Negative Negative [facility] INSURANCE BILL Microscopic Examination Urine [facility] INSURANCE BILL Comment: Microscopic not indicated and not performed. FASTING Urine URINE SPECIMEN OBTAINED BY CLEAN CATCH PROCEDURE / Unknown 10/28/2021 9:13 AM BILLET CHECKER 10/28/2021 Narrative Resulting Agency Comment Lab Testing [facility]: [facility] [address] [facility] [phone] Emilia Hernandez HYBRID CORN BREEDER-SHAPER OPERATOR LAB - URINA LYSIS ORDERABLES [facility] INSURANCE BILL [address] [place] [address] * MN DESTR MALIG TRUNK,EXTREM 1.1-2 CM (08/09/2021 10:54 AM CDT) Narrative Robyn Babcock MD - 08/09/2021 10:54 AM CDT Robyn Babcock MD 08/09/2021 10:55 AM PROCEDURE: Electrodessication and Curettage Risk of bleeding, scarring, infection, and recurrence were discussed with the patient. SURGEON: Sadiq HARBORMASTER SURGEON: DIAGNOSIS: BCC LOCATION: r knee SIZE OF LESION PRE-OP: 1.0 cm SIZE AFTER FIRST PASS: 1.4 cm ANESTHESIA: 1% Lidocaine with epinephrine. DRESSING: Plain Vaseline petroleum jelly and Band-Aid. Wound care instructions were given to the patient. Robyn Babcock M.D. Hole Digger Operator Department of Dermatology [facility] Robyn Babcock MD PROCEDURE/MINOR SURG ICAL ORDERABLES * MN DESTRUCT BENIGN LESION, 1-14 (07/19/2021 5:53 PM CDT) Narrative Robyn Babcock MD - 07/19/2021 5:53 PM CDT Kali Kendall MD 07/19/2021 5:53 PM Diagnosis and treatment options discussed. Cryotherapy (Liquid Nitrogen) to 2 lesions on lower central chest for 10 seconds each. Number of cycles: 1. Wound care reviewed. Robyn Babcock MD PROCEDURE/MINOR SURG ICAL ORDERABLES * MN TANGNTL BX SKIN SINGLE LES (07/19/2021 5:41 PM CDT) Narrative Robyn Babcock MD - 07/19/2021 5:41 PM CDT Kali Kendall MD 07/19/2021 5:42 PM Risks, benefits and alternatives to shave biopsy were discussed with the patient. Verbal consent was obtained. Encounter Diagnoses Name Primary? 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 Specimen(s) placed in a patient labeled container and sent to [facility] Dermatopathology. Patient agrees to phone call for results and message if not available. Kali Kendall MD Robyn Babcock MD PROCEDURE/MINOR SURG ICAL ORDERABLES * MAMMO LEFT DIAGNOSTIC (05/28/2021 12:38 PM CDT) Only the most recent of2 resultswithin the time period is included. Anatomical Region Laterality Modality Breast Left Mammography 05/28/2021 11:0 8 AM CDT Impressions 05/28/2021 11:34 AM CDT IMPRESSION: No left mammographic evidence of malignancy. RECOMMENDATION: Screening mammography is due in October 2021/November 2021. Dr. Cedeño discussed the examination findings and recommendations with the patient at the time of her examination. OVERALL ASSESSMENT: BI-RADS CATEGORY 1: NEGATIVE. This report was electronically signed by KATHLEEN CEDEÑO M.D. on 05/28/2021 11:34 AM . Narrative 05/28/2021 11:34 AM CDT EXAMINATION: DIGITAL MAMMO LEFT DIAGNOSTIC WITH TOMOSYNTHESIS AND WITH CAD DATE OF EXAM: 05/28/2021 10:20 AM HISTORY: Short-term follow-up from probably benign small asymmetry in the medial left breast on the CC view and superior left breast on the MLO view. Patient has no breast symptoms. RISK ASSESSMENT CALCULATION: Patient completed a breast cancer risk assessment during her appointment. Based upon the information she provided and her mammographic breast density, her lifetime risk of developing breast cancer is % (Average Risk <15%; Intermediate / Moderate Risk 15-19%; High Risk > 20%). COMPARISON: Prior mammograms back to 2012, with the most recent dated 11/27/2020. TECHNIQUE: Diagnostic left mammography was performed. Left CC, MLO, true lateral and CC spot compression views as well as MLO and true lateral spot compression views obtained. Computer-aided detection (CAD) was utilized. BREAST COMPOSITION: Category B: There are scattered areas of fibroglandular density. FINDINGS: There are no suspicious findings or evidence of malignancy. Previously described asymmetries are no longer identified. Exam is unremarkable. Emilia Hernandez HYBRID CORN BREEDER-SHAPER OPERATOR MAMMO ORDER KALA * IMAGING RADIOLOGY XRAY RESULTS ORDER (05/21/2021) Anatomical Region Laterality Modality Other 05/21/2021 Narrative 05/21/2021 Ordered by an unspecified provider. Scanned Document IMAGING * LIPID PROFILE (04/28/2021) Cholesterol 187 HDL 46 Triglycerides 331 LDL 75 Blood BLOOD SPECIMEN / Unknown 04/28/2021 Historical Provider LAB - CHEMISTRY O RDERABLES * (ABNORMAL) US BREAST LEFT LTD (11/27/2020 2:36 PM BILLET CHECKER) Anatomical Region Laterality Modality Breast Left Mammography 11/27/2020 2:26 PM BILLET CHECKER Impressions 11/27/2020 3:35 PM BILLET CHECKER IMPRESSION: No left mammographic or targeted left sonographic evidence for malignancy. RECOMMENDATION: Patient return for diagnostic left breast mammogram and possibly targeted left breast sonogram in 6 months, given the questionable asymmetries on screening mammography. Findings and recommendations were discussed with the patient by Dr. Cedeño. ASSESSMENT: BI-RADS Category 3: Probably benign finding, short interval follow up suggested. I, Dr. KATHLEEN CEDEÑO M.D. have personally reviewed and interpreted this examination/study. This report was electronically signed by KATHLEEN CEDEÑO M.D. on 11/27/2020 3:35 PM . Narrative 11/27/2020 3:35 PM BILLET CHECKER EXAMINATION: LEFT DIAGNOSTIC MAMMOGRAM WITH 3-D AND WITH CAD WITH LIMITED LEFT BREAST SONOGRAM (COMBINED REPORT) DATE: 11/27/2020. HISTORY: 65-year-old woman called back for additional images to evaluate asymmetries in the left inner and the left upper breast. COMPARISON: Multiple prior mammograms, most recently 11/21/2020. BREAST COMPOSITION: There are scattered areas of fibroglandular density. RISK ASSESSMENT CALCULATION: Not performed due to COVID precautions. TECHNIQUE: Images were performed using 3D tomosynthesis images with reconstructed/synthetic 2D images and CAD analysis. FINDINGS: The previously identified asymmetries in the left upper and the left inner breast are not visualized on spot compression images today, likely representing normal parenchymal breast tissue which compressed out on spot compression. No new suspicious mammographic findings were identified. Targeted left upper breast sonogram evaluating the 11 to 2:00 regions demonstrates no focal abnormalities. Emilia Hernandez APRN-SHAPER OPERATOR US ORDERABL ES * MAMMO BILAT SCREENING (11/21/2020 11:59 AM BILLET CHECKER) Only the most recent of9 resultswithin the time period is included. Anatomical Region Laterality Modality Breast Bilateral Mammography 11/22/2020 3:06 PM BILLET CHECKER Impressions 11/22/2020 4:55 PM BILLET CHECKER IMPRESSION: 1. Small asymmetry in the medial left breast on the craniocaudal view. 2. Small asymmetry in the superior left breast on the MLO view. 3. Stable negative right mammogram. RECOMMENDATION: Diagnostic left mammogram. If indicated at that time, ultrasound will be performed. Patient will be contacted and scheduled to return for additional imaging. ASSESSMENT: BI-RADS 0: INCOMPLETE-NEED ADDITIONAL IMAGING EVALUATION. Report dictated by Hermes Puckett MD (regional vice president surgical sales). I, Dr. KATHLEEN CEDEÑO M.D. have personally reviewed and interpreted this examination/study. This report was electronically signed by KATHLEEN CEDEÑO M.D. on 11/22/2020 4:55 PM . Narrative 11/22/2020 4:55 PM BILLET CHECKER BILATERAL SCREENING MAMMOGRAM WITH 3-D AND WITH CAD DATE: 11/21/2020 12:00 PM COMPARISON: Multiple prior mammograms, most recently 10/24/2019 dating back to 10/08/2016. HISTORY: Screening mammogram. TECHNIQUE: Images were performed using 3D tomosynthesis images with reconstructed/synthetic 2D images and CAD analysis. Mole markers placed on the left breast. BREAST COMPOSITION: There are scattered areas of fibroglandular density. FINDINGS: There is no suspicious mass, clustered microcalcification, or architectural distortion in the right breast breast on 2D or 3D images. Small asymmetry in the posterior medial left breast on the craniocaudal view, 9.7 cm from the nipple. Small asymmetry in the superior left breast on the MLO view, 8 cm from the nipple. Emilia Hernandez HYBRID CORN BREEDER-SHAPER OPERATOR MAMMO ORDER KALA * MN DESTRUCT BENIGN LESION, 1-14 (11/13/2020 12:04 PM BILLET CHECKER) Narrative Robyn Babcock MD - 11/13/2020 12:04 PM BILLET CHECKER Robyn Babcock MD 11/13/2020 12:17 PM Diagnosis and treatment options discussed. Cryotherapy (Liquid Nitrogen) to 8 lesions for 10-15 seconds each. Number of cycles: 2. Wound care reviewed. DO AGUSTÍN Mcadams Dermatology Resident, PGY-3 Robyn Babcock MD PROCEDURE/MINOR SURG ICAL ORDERABLES * MN PUNCH BX SKIN SINGLE LESION (11/13/2020 12:04 PM BILLET CHECKER) Robyn Kyle MD - 11/13/2020 12:04 PM BILLET CHECKER Vangie Hassan DO 11/13/2020 12:04 PM Risks, benefits and alternatives to punch biopsy were discussed with the patient, including risks of infection, scar (100% chance), the possibility of non-diagnostic reading, and the potential need for further testing or treatment, including surgical. Patient expressed understanding and verbal consent was obtained. Location: Central upper chest Punch biopsy: 5mm Skin prep: Alcohol Anesthesia: 1% lidocaine with epinephrine Closure: 4-0 nylon suture Dressing and wound care discussed. Patient agrees to phone call for results and message if not available. DO AGUSTÍN Mcadams Dermatology Resident, PGY-3 Robyn Babcock MD PROCEDURE/MINOR SURG ICAL ORDERABLES * (ABNORMAL) T4 FREE (10/31/2020 1:42 PM BILLET CHECKER) T4 Free 0.78(L) 0.82 - 1.77 ng/dL [facility] INSURANCE BILL Blood BLOOD SPECIMEN / Unknown 10/31/2020 1:42 PM BILLET CHECKER 10/31/2020 Narrative Resulting Agency Comment Lab Testing performed [facility]: [facility] [address] [facility] [phone] Emilia Conradalexijane HYBRID CORN BREEDER-SHAPER OPERATOR LAB - CHEMI STRY ORDERABLES [facility] INSURANCE BILL [address] [place] [address] * VAS RIGHT VENOUS REFLUX (01/18/2020 8:50 AM BILLET CHECKER) Anatomical Region Laterality Modality Upper Extremity, Lower Extremity Intravascular Ultrasound 01/18/2020 8:26 AM BILLET CHECKER Narrative Procedure Note Elmer Loo MD - 01/18/2020 Margot North MD VASCULAR LAB ORDERA BLES * MN DESTR MALIG TRUNK,EXTREM 1.1-2 CM (06/10/2019 9:09 AM CDT) Narrative Robyn Babcock MD - 06/10/2019 9:09 AM CDT Horacio Pimentel MD 06/01/2019 9:26 AM PROCEDURE: Cryosurgery and Curettage Risk of bleeding, scarring, infection, and recurrence were discussed with the patient. SURGEON: Loren HARBORMASTER SURGEON: Sadiq DIAGNOSIS: BCC Accession# : [id number] LOCATION: Central upper chest SIZE AFTER FIRST PASS: 1.2cm ANESTHESIA: 1% Lidocaine with epinephrine. DRESSING: Plain Vaseline petroleum jelly and Band-Aid. Wound care instructions were given to the patient. Horacio Pimentel M.D. PGY-4 dermatology resident Robyn Babcock MD PROCEDURE/MINOR SURG ICAL ORDERABLES * MN DESTR MALIG SCAL,NCK,HAND 1.1-2 CM (06/10/2019 9:09 AM CDT) Narrative Robyn Babcock MD - 06/10/2019 9:09 AM CDT Horacio Pimentel MD 06/01/2019 9:26 AM PROCEDURE: Cryosurgery and Curettage Risk of bleeding, scarring, infection, and recurrence were discussed with the patient. SURGEON: Loren HARBORMASTER SURGEON: Sadiq DIAGNOSIS: BCC LOCATION: R dorsal foot SIZE AFTER FIRST PASS: 1.7cm ANESTHESIA: 1% Lidocaine with epinephrine. DRESSING: Plain Vaseline petroleum jelly and Band-Aid. Wound care instructions were given to the patient. Horacio Pimentel M.D. PGY-4 dermatology resident Robyn Babcock MD PROCEDURE/MINOR SURG ICAL ORDERABLES * CULTURE AEROBIC (06/09/2019 12:00 AM CDT) Only the most recent of2 resultswithin the time period is included. Aerobic Bacterial Culture Final report [facility] INSURANCE BILL Result 1 Mixed skin sandra [facility] INSURANCE BILL Microbiology SPECIMEN FROM WOUND / Unknown 06/09/2019 06/09/2019 Narrative Resulting Agency Comment Lab Testing performed at: [facility] [id number] [facility] [phone] Robyn Babcock MD LAB - MICROBIOLOGY O RDERABLES [facility] INSURANCE BILL [address] [place] [address] * MN DESTRUCT BENIGN LESION, 1-14 (04/13/2019 1:00 PM CDT) Narrative Robyn Babcock MD - 04/13/2019 1:00 PM CDT Nava Monson MD 04/12/2019 4:47 PM Diagnosis and treatment options discussed. Cryotherapy (Liquid Nitrogen) to 2 lesions for 5-10 seconds each. Number of cycles: 1. Wound care reviewed. Nava Monson MD [facility] Dermatology Resident PGY-2 Robyn Babcock MD PROCEDURE/MINOR SURG ICAL ORDERABLES * MN TANGNTL BX SKIN EA SEP ADDL, MN TANGNTL BX SKIN SINGLE LES (04/13/2019 11:30 AM CDT) Narrative Robyn Babcock MD - 04/13/2019 11:30 AM CDT Nava Monson MD 04/12/2019 4:50 PM Risks, benefits and alternatives to shave biopsy were discussed with the patient. Verbal consent was obtained. Encounter Diagnoses Name Primary? History of basal cell carcinoma Seborrheic keratoses, inflamed Inflamed seborrheic keratosis Multiple benign nevi of upper and lower extremities, and trunk Calvo angioma Stasis dermatitis of both legs Other viral warts Neoplasm of uncertain behavior of skin Yes Location: Specimen A: Central upper chest Specimen B: Right dorsal foot Skin prep: Alcohol Anesthesia: 1% lidocaine with epinephrine Hemostasis: Aluminum chloride to both lesions, hyfrecator to right dorsal foot Dressing and wound care discussed. Specimen(s) placed in a patient labeled container and sent to [facility] Dermatopathology. Patient agrees to phone call for results and message if not available. Nava Monson MD Robyn Babcock MD PROCEDURE/MINOR SURG ICAL ORDERABLES * VAS RIGHT VENOUS DUPLEX LE (12/29/2018 9:47 AM BILLET CHECKER) Only the most recent of2 resultswithin the time period is included. Anatomical Region Laterality Modality Duplex Doppler 12/29/2018 9:01 AM BILLET CHECKER Narrative Procedure Note Elmer Loo MD - 12/29/2018 Emilia Hernandez HYBRID CORN BREEDER-SHAPER OPERATOR VASCULAR LA B ORDERABLES * PATHOLOGY TISSUE (11/27/2018 10:43 AM BILLET CHECKER) Case Report Surgical Pathology Report Case: [id number] Authorizing Provider: Luis Daniel Paz MD Collected: 11/27/2018 10:43 AM Ordering Location: [address] Received: 11/29/2018 06:28 AM Pathologist: Padmini Babcock MD Specimen: Calculus, RENAL STONE 12/01/2018 3:28 PM BILLET CHECKER [facility] Final Diagnosis As described in gross 12/01/2018 3:28 PM BILLET CHECKER [facility] PATHOLOG[facility] LAB Clinical History The patient is a 63-year-old woman with a left ureteral stone. Operative Procedure: Cystoscopy with insertion of uretal stent, left. 12/01/2018 3:28 PM [facility] Gross Description The requisition and specimen are identified with the patient name, Amaris Butler Received fresh, specimen A, renal stone , is a single yellow-carpenter fragment of calculi measuring 0.7 x 0.3 x 0.3 cm. There is no soft tissue present with the specimen. This is for gross examination only. ADH/met 12/01/2018 3:28 PM [facility] Disclaimer The performance characteristics of all immunohistochemical and indirect immunofluorescence stains (if any) cited in this report were determined by the Histopathology Laboratory of [facility]. Some of these tests were developed by our own laboratory and have not been cleared or approved by the US Food and Drug Administration. The FDA does not require this test to go through premarket FDA review. These tests are used for clinical purposes. They should not be regarded as investigational or for research. This laboratory is certified under the Clinical Laboratory Improvement Amendments (CLIA) as qualified to perform high complexity clinical laboratory testing. This case has been personally reviewed and interpreted by the attending (teaching) pathologist. 12/01/2018 3:28 PM [facility] Embedded Images 12/01/2018 3:28 PM [facility] Gross only CALCULUS SPECIMEN / Unknown 11/27/2018 10:43 AM BILLET CHECKER 11/29/2018 6:28 AM [facility] Luis Daniel Paz MD LAB - PATHOLOGY/KUSUM GALVEZ ORDERABLES Performing Organization Address City/State/[facility] Co de Phone Number [facility]OLOG[facility] LAB [address] [phone] * STONE ANALYSIS QUANT (11/27/2018 10:43 AM BILLET CHECKER) Color Haakon 12/22/2018 12:16 PM BILLET CHECKER [facility] ([facility]) Size 6x3x3 mm 12/22/2018 12:16 PM BILLET CHECKER [facility] ([facility]) Weight 44.9 mg 12/22/2018 12:16 PM BILLET CHECKER [facility] ([facility]) Composition Comment 12/22/2018 12:16 PM BILLET CHECKER [facility] ([facility]) Comment:Percentage (Represen ts the % composition) Calcium Oxalate Monohydrate 08 % 12/22/2018 12:16 PM [facility] ([facility]) Calcium phosphate 02 % 019 12:16 PM [facility] ([facility]) Uric Acid % 90 % 12/22/2018 12:16 PM [facility] ([facility]) Nidus Comment 12/22/2018 12:16 PM [facility] Comment:Nidus composed of Ur ic acid. Surface Crystals Comment: 12/22/19 19 12:16 PM [facility] ([facility]) Comment: Calcium oxalate monohydrate Calcium phosphate Please Note Comment 12/22/2018 12:16 PM [facility] Comment: Calculi report without photograph will follow via computer, mail, or diesel truck mechanic delivery. Comment Comment 12/22/2018 12:16 PM [facility] ([facility]) Comment: Physician questions regarding Calculi Analysis contact [facility] at: [phone]. Disclaimer Comment 12/22/2018 12:16 PM [facility] ([facility]) Comment: This test was developed and its performance characteristics determined by [facility]. It has not been cleared or approved by the Food and Drug Administration. Pathology/Cytolo gy CALCULUS SPECIMEN / Unknown Collection / Unknown 11/27/2018 10:43 AM BILLET CHECKER 12/17/2018 12:26 PM BILLET CHECKER Narrative [facility] ([facility]) - 12/22/2018 12:16 PM BILLET CHECKER Performed at: [address] [place] [id number] Buffer Inflated Pad: Irais Mike MD, Phone: [phone] Luis Daniel Paz MD LAB - URINE CHEMIS TRY ORDERABLES [facility] ([facility]) [address] [place] [address], [facility] * CT ABDOMEN PELVIS WO CONTRAST (11/26/2018 2:23 PM BILLET CHECKER) Anatomical Region Laterality Modality Abdomen, Pelvis Computed Tomogra phy 11/26/2018 2:44 PM BILLET CHECKER Impressions 11/26/2018 4:19 PM BILLET CHECKER IMPRESSION: 1. Left ureterovesicular junction calculus measuring 4 mm, with mild left hydroureter and mild left hydronephrosis. Preliminary results were discussed with Dr. Salas by Dr. Rascon on 11/26/2018 at 2:51 PM. Dictated by Nico Rascon MD (regional vice president surgical sales). This report was approved by Nico Rascon on 11/26/2018 2:52 PM . I, Dr. Ron CELESTIN M.D. have personally reviewed and interpreted this examination/study. This report was electronically signed by Ron CELESTIN M.D. on 11/26/2018 4:19 PM . Narrative 11/26/2018 4:19 PM BILLET CHECKER EXAMINATION: Computed tomography (CT) of the abdomen and pelvis without contrast HISTORY: Left flank pain. Blood cells on urinalysis. TECHNIQUE: CT of the abdomen and pelvis was performed without contrast according to standard protocol. COMPARISON: No prior study is available for comparison. FINDINGS: Evaluation of visceral and vascular structures is degraded due to lack of intravenous contrast administration. Mild bilateral dependent atelectasis is present. Otherwise no focal consolidation is seen in the visible lung bases. The heart size is normal without pericardial effusion. The liver appears normal. The gallbladder is normal without evidence of wall thickening, pericholecystic fluid, or gallstones. The intrahepatic and extrahepatic bile ducts are nondilated. The spleen, pancreas, and adrenal glands appear normal. The kidneys appear normal in size and configuration. There is a 4 mm calcific density at the left ureterovesicular junction (series 3, image 137). There is mild left ureteral dilation and mild left hydronephrosis. There is no evidence of right renal calculi or hydronephrosis or hydroureter. The distal esophagus and stomach appear normal. The small bowel and large bowel are normal in caliber without evidence of wall thickening or obstruction. The appendix appears normal without appendicolith or surrounding inflammatory changes. No free air or free fluid is identified within the abdomen. There is no abdominal lymphadenopathy. The aorta is mildly atherosclerotic but normal in caliber. The urinary bladder is partially distended with fluid and appears normal. Uterus is atrophic. No free fluid is seen within the pelvis. There is no pelvic lymphadenopathy. Bone windows demonstrate no suspicious lytic or blastic lesions. The visible osseous structures are intact. Procedure Note David Celestin MD - 11/26/2018 EXAMINATION: Computed tomography (CT) of the abdomen and pelvis without contrast HISTORY: Left flank pain. Blood cells on urinalysis. TECHNIQUE: CT of the abdomen and pelvis was performed without contrast according to standard protocol. COMPARISON: No prior study is available for comparison. FINDINGS: Evaluation of visceral and vascular structures is degraded due to lackof intravenous contrast administration. Mild bilateral dependent atelectasis is present. Otherwise no focal consolidation is seen in the visible lung bases. The heart size isnormal without pericardial effusion. The liver appears normal. The gallbladder is normal without evidence of wall thickening, pericholecystic fluid, or gallstones. The intrahepatic and extrahepatic bile ducts are nondilated. The spleen, pancreas, and adrenal glands appear normal. The kidneys appear normal in size and configuration. There is a 4 mm calcific density at the left ureterovesicular junction (series 3, image 137). There is mild left ureteral dilation and mild left hydronephrosis. There is no evidence of right renal calculi or hydronephrosis or hydroureter. The distal esophagus and stomach appear normal. The small bowel andlarge bowel are normal in caliber without evidence of wall thickening or obstruction. The appendix appears normal without appendicolith or surrounding inflammatory changes. No free air or free fluid isidentified within the abdomen. There is no abdominal lymphadenopathy. The aorta is mildly atherosclerotic but normal in caliber. The urinary bladder is partially distended with fluid and appearsnormal. Uterus is atrophic. No free fluid is seen within the pelvis. There is no pelvic lymphadenopathy. Bone windows demonstrate no suspicious lytic or blastic lesions. The visible osseous structures are intact. IMPRESSION: 1. Left ureterovesicular junction calculus measuring 4 mm, with mildleft hydroureter and mild left hydronephrosis. Preliminary results were discussed with Dr. Salas by Dr. Rascon on 11/26/2018 at 2:51 PM. Dictated by Nico Rascon MD (regional vice president surgical sales). This report was approved by Nico Rascon on 11/26/2018 2:[address] Ron Saldivar M.D. have personally reviewed and interpretedthis examination/study. This report was electronically signed by Ron CELESTIN M.D. on 11/26/2018 4:19 PM . Austin Salas MD CT ORDERABLES * HIV-1 HIV-2 ANTIGEN/ANTIBODY (11/26/2018 2:10 PM BILLET CHECKER) HIV Antigen/Antibod y 1 & 2 Non-reacti ve Non-react muna 11/26/2018 2:55 PM BILLET CHECKER [facility] Comment: Neither HIV-1 p24 Antigen nor HIV-1/HIV-2 Antibodies are detected. Blood BLOOD SPECIMEN / Unknown Venipuncture / Unknown 11/26/2018 2:10 PM BILLET CHECKER 11/26/2018 2:15 PM BILLET CHECKER [facility]celyn Mann [facility] - HEMATOLOGY ORDERABLES Performing Organization Address [facility] Co de Phone Number [address] [phone] * HEPATITIS C AB SCREEN RFLX NAAT QUANT (11/26/2018 2:10 PM BILLET CHECKER) Hepatitis C Antibody Non-react muna Non-reac tive 11/26/2018 2:57 PM BILLET CHECKER [facility] Comment: Hepatitis C Antibody screen indicates no serologic evidence of past or current infection with Hepatitis C Virus. Patients with unexplained liver disease who are immunocompromised or suspected of having acute Hepatitis C infection may benefit from Nucleic Acid Test (CHELI) for Hepatitis C Viral RNA to confirm Hepatitis C status. Blood BLOOD SPECIMEN / Unknown Venipuncture / Unknown 11/26/2018 2:10 PM BILLET CHECKER 11/26/2018 2:15 PM BILLET CHECKER Joycelyn Mann [facility] - CHEMISTRY ORDERABLES Performing Organization Address [facility]/[place] [address], [facility] [phone] * MN DESTR MALIG TRUNK,EXTREM 0.6-1 CM (11/02/2018 11:24 AM BILLET CHECKER) Narrative Robyn Babcock MD - 11/02/2018 11:24 AM BILLET CHECKER Nava Monson MD 10/25/2018 7:25 PM PROCEDURE: Cryotherapy and Curettage Patient was educated on purpose, risks/benefits and potential adverse effects, 100% chance of scar, statistics of cure, small chance of infection and recurrence. Informed consent obtained. A time out was performed immediatelyprior to the procedure: patient and provider/staff verbally confirmed correct patient, correct site, and correct procedure. ATTENDING PHYSICIAN: Dr. Robyn Babcock SURGEON: Nava Monson MD DIAGNOSIS: Basal Cell Carcinoma, Superficial Multifocal LOCATION: Right Upper Arm SIZE OF LESION PRE-OP: 0.5 cm x 1 cm The surgical site was prepped with alcohol. Anesthesia: Lidocaine 1% with epinephrine locally injected. Curettage was performed with 4 mm curette over entire lesion in three different directional axis' Cryotherapy was then performed to entire wound bed x 15 seconds. SIZE AFTER FIRST PASS: 1.0 cm x 1.2 cm DRESSING: Plain Vaseline petroleum jelly and Band-Aid. Wound care instructions were given to the patient both orally and in writing. Patient tolerated the procedure well. Nava Monson MD U Dermatology Resident PGY-2 10/25/2018 7:22 PM Robyn Babcock MD PROCEDURE/MINOR SURG ICAL ORDERABLES * MN BIOPSY OF SKIN LESION (10/01/2018 12:34 PM BILLET CHECKER) Robyn Kyle MD - 10/01/2018 12:34 PM BILLET CHECKER Smith Vega MD 10/01/2018 11:49 AM Risks, benefits and alternatives to shave biopsy were discussed with the patient. Verbal consent was obtained. Encounter Diagnoses Name Primary? Neoplasm of uncertain behavior of skin Yes Seborrheic keratoses, inflamed Multiple benign nevi of upper and lower extremities, and trunk Lentigines Seborrheic keratoses History of basal cell carcinoma Other eczema Intertrigo Location: right upper arm Skin prep: Alcohol Anesthesia: 1% lidocaine with epinephrine Hemostasis: Aluminum chloride Dressing and wound care discussed. Specimen(s) placed in a patient labeled container and sent to [facility] Dermatopathology. Patient agrees to phone call for results and message if not available. Smith Vega MD Robyn Babcock MD PROCEDURE/MINOR SURG ICAL ORDERABLES * MN DESTRUCT BENIGN LESION, 1-14 (10/01/2018 12:34 PM BILLET CHECKER) Narrative Robyn Babcock MD - 10/01/2018 12:34 PM BILLET CHECKER Smith Vega MD 10/01/2018 11:50 AM Diagnosis and treatment options discussed. Cryotherapy (Liquid Nitrogen) to 1 lesion on rlight lower abdomen for 10-12 seconds each. Number of cycles: 1. Wound care reviewed. Robyn Babcock MD PROCEDURE/MINOR SURG ICAL ORDERABLES * HEPATITIS C AB W RFLX VERIFICATION (06/02/2018 11:18 AM CDT) Hepatitis C Antibody <0.1 0.0 - 0.9 s/co ratio [facility] INSURANCE BILL Comment:FASTING 06/02/2018 11:1 8 AM CDT 06/02/2018 Narrative Resulting Agency Comment [facility] [phone] Emilia Hernandez HYBRID CORN BREEDER-SHAPER OPERATOR LAB - CHEMI STRY ORDERABLES [facility] INSURANCE BILL [address] [place] [address] * HCV COMMENT (06/02/2018 11:18 AM CDT) Comment [facility] INSURANCE BILL Comment: Non reactive HCV antibody screen is consistent with no HCV infection, unless recent infection is suspected or other evidence exists to indicate HCV infection. FASTING 06/02/2018 11:1 8 AM CDT 06/02/2018 Narrative Resulting Agency Comment [facility] [address] [facility] [phone] Emilia Hernandez HYBRID CORN BREEDER-SHAPER OPERATOR LAB - CHEMI STRY ORDERABLES [id number] INSURANCE BILL [address] [place] [address] * PATHOLOGY/GENETICS HISTORICAL-ONBASE (05/06/2017) Only the most recent of5 resultswithin the time period is included. 05/06/2017 Titus G Kong MD LAB - CHEMISTRY [place] [id number] [address] * ECHO W DOPPLER AND COLOR FLOW (05/05/2017 12:00 AM CDT) Anatomical Region Laterality Modality Other 05/05/2017 Emilia Hernandez HYBRID CORN BREEDER-SHAPER OPERATOR ECHOCARDIOG MOISES RADIANT * MICROALB/CREAT RATIO URINE RANDOM PANEL (02/07/2016 4:27 PM CDT) Creatinine Urine 133.7 15.0 - 278.0 mg/dL [facility] ([facility]) Microalbumin Random Urine 7.4 0.0 - 17.0 ug/mL [facility] ([facility]) Urine Albumin/Creatinin e Ratio 5.5 0.0 - 30.0 mg/g creat [facility] ([facility]) Urine specimen (specimen) URINE / Unknown 02/07/2016 4:27 PM CDT 02/07/2016 5:49 PM CDT Narrative [facility] - 02/08/2016 9:27 AM CDT Performed at: [address] [place] [id number] Buffer Inflated Pad: Amadou Mckeon PhD, Phone: [phone] Emilia Hernandez APRN-SHAPER OPERATOR LAB - URINE CHEMISTRY ORDERABLES [facility] * CK BLOOD (08/02/2015 12:00 AM CDT) CK Total 134 24 - 173 U/L [facility] Blood specimen (specimen) BLOOD SPECIMEN / Unknown 08/02/2015 08/02/2015 9:46 PM CDT Narrative [facility] - 08/03/2015 3:22 PM CDT Performed at: [address] [place] [address], [place], [place] [id number] Buffer Inflated Pad: Amadou Mckeon PhD, Phone: [phone] Emilia Hernandez HYBRID CORN BREEDER-SHAPER OPERATOR LAB - CHEMI STRY ORDERABLES [facility]) * XR PELVIS W BILAT HIP 2VW (07/31/2015 3:15 PM CDT) Anatomical Region Laterality Modality Pelvis, Lower Extremity Other Impressions 07/31/2015 4:06 PM CDT Impression: 1. No acute osseous abnormality or evidence of hip arthritis. 2. Mild degenerative changes in the sacroiliac joints. Report dictated by Dania Domingo MD. (Ring Making Machine Operator). This report was approved by Dania Domingo M.D. on 07/31/2015 4:05 PM . I, Dr. SILVESTRE SCHWARTZ MD have personally reviewed and interpreted this examination/study. This report was electronically signed by SILVESTRE SCHWARTZ MD on 07/31/2015 4:06 PM . Narrative 07/31/2015 4:06 PM CDT Exam: XR HIPS BILATERAL 2 VW W AP PELVIS Date: 07/31/2015; 3:04 PM History: Pain in the bilateral hips and groin area. Comparison: Comparison is made with prior studies dated 11/19/2012. Findings: The sacroiliac joints demonstrate mild degenerative changes. The pubic symphysis is intact. Mild pelvic enthesopathy is noted. RIGHT HIP: The alignment is normal. There is no acute fracture or dislocation. The joint space is preserved. The bone mineralization is normal. LEFT HIP: The alignment is normal. There is no acute fracture or dislocation. The joint space is preserved. Bone mineralization is normal. Procedure Note Silvestre Schwartz MD - 02/20/2018 Exam: XR HIPS BILATERAL 2 VW W AP PELVIS Date: 07/31/2015; 3:04 PM History: Pain in the bilateral hips and groin area. Comparison: Comparison is made with prior studies dated 11/19/2012. Findings: The sacroiliac joints demonstrate mild degenerative changes. The pubicsymphysis is intact. Mild pelvic enthesopathy is noted. RIGHT HIP: The alignment is normal. There is no acute fracture or dislocation. Thejoint space is preserved. The bone mineralization is normal. LEFT HIP: The alignment is normal. There is no acute fracture or dislocation. Thejoint space is preserved. Bone mineralization is normal. IMPRESSION Impression: 1. No acute osseous abnormality or evidence of hip arthritis. 2. Mild degenerative changes in the sacroiliac joints. Report dictated by Dania Domingo MD. (Ring Making Machine Operator). This report was approved by Dania Domingo M.D. on 07/31/2015 4:05 PM. I, Dr. SILVESTRE SCHWARTZ MD have personally reviewed and interpreted thisexamination/study. This report was electronically signed by SILVESTRE SCHWARTZ MD on 07/31/20154:06 PM . Emilia Hernandez HYBRID CORN BREEDER-SHAPER OPERATOR DIAGNOSTIC IMAGING ORDERABLES * CARDIAC RHYTHM STRIP ORDER (07/06/2015 3:27 PM CDT) Narrative 07/06/2015 3:27 PM CDT Ordered by an unspecified provider. Scanned Document CARDIAC SERVICES ORD ERABLES * GROSS + MICRO EXAM (STL) (07/04/2015 12:15 PM CDT) Case Report Surgical Pathology Report Case: [id number] Authorizing Provider: Amaris Qing Jennie lipscomb, Collected: 07/04/2015 12:15 PM Ordering Location: [facility] Received: 07/04/2015 12:34 PM Pathologist: Brittany Valdes MD Specimen: Endometrium Curettings , Endometrial curettings + polyp 07/05/2015 2:33 PM CDT [facility] Final Diagnosis 1. Uterus, endometrium, biopsy: -- Endometrial polyp NM/MC/na 07/05/2015 2:33 PM CDT [facility] Gross Description Specimen received in one formalin filled container labeled with the patient's name Amaris Butler, endometrium curetting, consists of red-carpenter to pink-carpenter tissue fragments measuring in aggregate 2 x 1 x 0.3 cm submitted in toto as A1. NM/lv 07/05/2015 2:33 PM CDT [facility] Microscopic Description Microscopic examination of the specimen shows dilated endometrial glands, fibrotic stroma and focally thickened vessels. Fragments of benign myometrium is also noted. NM/MC/na 07/05/2015 2:33 PM CDT [facility] Pathology/Cytolo gy SPECIMEN FROM ENDOMETRIUM OBTAINED BY CURETTAGE / Unknown 07/04/2015 12:15 PM CDT 07/04/2015 12:34 PM CDT Amaris Lewis MD LAB - PATHOL OGY/CYTOLOGY ORDERABLES [facility] [address] [place] [address] * XR KNEE RIGHT 4VW OR MORE (12/11/2014 3:31 PM BILLET CHECKER) Anatomical Region Laterality Modality Lower Extremity Other Impressions 12/11/2014 6:59 PM BILLET CHECKER Impression: Mild osteoarthritis. This report was electronically signed by SILVESTRE SCHWARTZ MD on 12/11/2014 6:59 PM . Narrative 12/11/2014 6:59 PM BILLET CHECKER Exam: XR KNEE RIGHT 4+ VW Comparison: None available. History: pain and swelling--worse with standing Findings: There is no acute fracture or dislocation. There is mild medial compartment joint space narrowing. The lateral and patellofemoral compartment joint spaces are normal. There are small tricompartmental osteophytes. There is no effusion. Bone mineralization is normal. Procedure Note Silvestre Schwartz MD - 02/20/2018 Exam: XR KNEE RIGHT 4+ VW Comparison: None available. History: pain and swelling--worse with standing Findings: There is no acute fracture or dislocation. There is mild medialcompartment joint space narrowing. The lateral and patellofemoralcompartment joint spaces are normal. There are small tricompartmentalosteophytes. There is no effusion. Bone mineralization is normal. IMPRESSION Impression: Mild osteoarthritis. This report was electronically signed by SILVESTRE SCHWARTZ MD on 12/11/20146:59 PM . Emilia Hernandez HYBRID CORN BREEDER-SHAPER OPERATOR DIAGNOSTIC IMAGING ORDERABLES * DEXA BONE DENSITY AXIAL SKELETON (01/04/2014 9:48 AM BILLET CHECKER) Anatomical Region Laterality Modality Other Narrative 01/04/2014 3:43 PM BILLET CHECKER Examination: Dual energy x-ray absorptiometry of the lumbar spine and hip. Clinical Indication: Postmenopausal, fracture right foot. Findings: Detailed data from the exam is sent separately to the ordering physician and is also available on [facility], the Radiology Department's computerized picture archive system [...] M.D. on 01/04/2014 3:22 PM . IDr. GIRISH D.O. have personally reviewed and interpreted this examination/study. This report was electronically signed by GIRISH BYERS D.O. on 01/04/2014 3:43 PM . Procedure Note Girish Byers, DO - 02/20/2018 Examination: Dual energy x-ray absorptiometry of the lumbar spine andhip. Clinical Indication: Postmenopausal, fracture right foot. Findings: Detailed data from the exam is sent separately to the orderingphysician and is also available on [facility], the Radiology Department'[employer] picture archive system SUMMARY: No prior study [...] Cervantes M.D. on 01/04/2014 3:[address] GIRISH Saldivar D.O. have personally reviewed and interpreted thisexamination/study. This report was electronically signed by GIRISH BYERS D.O. on 01/04/20143:43 PM . Emilia Maco Mary HYBRID CORN BREEDER-SHAPER OPERATOR DEXA ORDERA BLES * XR PELVIS W RIGHT HIP 2VW (11/19/2012 4:58 PM BILLET CHECKER) Anatomical Region Laterality Modality Other Impressions 11/24/2012 3:05 PM BILLET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
[2025-01-24 13:29] LABS: Alanine Aminotransferase 23 U/L (6-35); Albumin Level 4.3 g/dL (3.5-5.1); Alkaline Phosphatase 129 U/L (38-126); Anion Gap 14 mmol/L (4-12); Aspartate Amino Transferase 28 U/L (14-36); Blood Urea Nitrogen 30 mg/dL (7-17); Calcium 9.9 mg/dL (8.4-10.2); Carbon Dioxide 23 mmol/L (22-30); Chloride 98 mmol/L (98-107); Estimated CRCL calculation 39 ml/min; Estimated Glomerular Filt Rate 35; Glucose 183 mg/dL (65-110); Potassium 3.2 mmol/L (3.4-5.0); Sodium 135 mmol/L (137-145)
[2025-01-24 13:38] LABS: NT Pro B Type Natriuretic Pept 2310 pg/mL (19.9-100)
--- OUTSIDE RECORDS SUMMARY | 2025-01-24 13:43 | XMS_ITS | Encounter Summary ---
Author Organization [facility] Address [address] [facility] [place] [address] Care Team Providers Care Pigment Pusher Name Role Phone Emilia Hernandez STRUCTURAL STEEL ERECTION SUPERVISOR-DIDACTIC INSTRUCTOR Primary Care Provi scarlett Edgar Watson MD Primary Care Provider [phone] Emilia Hernandez STRUCTURAL STEEL ERECTION SUPERVISOR-DIDACTIC INSTRUCTOR Primary Care Provi scarlett Razia Coles STRUCTURAL STEEL ERECTION SUPERVISOR-DIDACTIC INSTRUCTOR Primary Care Provider [phone] Neftaly Valerio MD Primary Care Provider [phone] Reason for Visit * Reason Onset Date Comments Med Question 06/02/2018 Med Question 06/03/2018 1st attempt to c ontact pt LM Encounter Details Date Type Department Care Team (Late st Contact Info) Description 06/02/2018 Telephone [facility] General Internal Medicine [address] [address] Emilia Hernandez, STRUCTURAL STEEL ERECTION SUPERVISOR-DIDACTIC INSTRUCTOR [address] OF [facility] [place] [address] Med Question; Med Question (1st [...] question for TERRY Hernandez. Left message @ [phone] with affiliation and contact number, , no [...] her what question she has about this. Emilia Hernandez NP * Telephone Encounter - Maria Dolores Clay - 06/02/2018 10:34 AM CDT PT: Carrie Glez PH: [phone] Pt wanted to let Emilia know that [...] Description 02/01/2025 1:50 PM CDT Office Visit [facility] - Nephrology [address] [place] [address], [place] [address] Josie Almonte, STRUCTURAL STEEL ERECTION SUPERVISOR-DIDACTIC INSTRUCTOR [address] [place] [address] [place] [address] Roxana Gallardo MD [address] [place] [address] 2L [place] [address] 02/08/2025 10:30 AM CDT Office Visit [facility] - Urology [address] [place] [address] [address] [place] [address] Josie Almonte, STRUCTURAL STEEL ERECTION SUPERVISOR-DIDACTIC INSTRUCTOR [address] [place] [address] [place] [address] 02/15/2025 10:15 AM CDT Office Visit [facility] - Vascular Surgery [address] [place] [address], [place] [address] Margot North MD [address] [place] [address] 2L [place] [phone] 03/13/2025 8:50 AM CDT Office Visit [facility] - MANAGER FARM [address] [facility] [address] [place] [phone] Titus Kong MD [address] [address] 03/14/2025 9:00 AM CDT Office Visit [facility] - Ophthalmology [address] [place] [phone] 03/16/2025 8:30 AM CDT Office Visit [facility] - Internal Med [address] [place] [phone] Neftaly Valerio MD [address] [place] [address] 04/20/2025 9:00 AM CDT Office Visit [facility] - Internal Med [address] [place] [phone] Neftaly Valerio MD [address] [place] [address] 05/04/2025 10:00 AM CDT Office Visit [facility] - Rheumatology [address] [place] [phone] Gala Post, STRUCTURAL STEEL ERECTION SUPERVISOR-[address] [address] Kenny Braun MD [address] [place] [address] 2L [place] [phone] 06/30/2025 9:40 AM CDT Office Visit [facility] - General Dermatology [address] [place] [phone] Robyn Babcock MD [address] [place] [address] 12/11/2025 9:00 AM ACOUSTICS TEACHER Appointment [facility] [address] [facility] [address] [place] [address] documented as of this encounter Visit Diagnoses Not on filedocumented in this encounter Care Teams Pigment Pusher Relationship Specialty Start Date End Date Emilia Hernandez, STRUCTURAL STEEL ERECTION SUPERVISOR-DIDACTIC INSTRUCTOR PCP - General 04/30/18 06/17/21 Edgar Watson MD [address] 2L DIV [place] [address] PCP - General 06/18/21 07/16/21 Emilia Hernandez, STRUCTURAL STEEL ERECTION SUPERVISOR-DIDACTIC INSTRUCTOR [address] 2L DIV [place] [address] PCP - General 07/17/21 11/12/21 Razia Coles, STRUCTURAL STEEL ERECTION SUPERVISOR-DIDACTIC INSTRUCTOR [address] [place] [address] PCP - General 11/13/21 12/07/22 Neftaly Valerio MD [address] [place] [address] PCP - General Internal Medicine 07/18/24 documented as of this encounter
--- OUTSIDE RECORDS SUMMARY | 2025-01-24 13:43 | XMS_ITS | Encounter Summary ---
Author Organization [facility] Address [address] [place] [address] Care Team Providers Care Printing Shop Supervisor Name Role Phone Emilia Hernandez [facility] Primary Care Provi scarlett Edgar Watson MD Primary Care Provider [phone] Emilia Hernandez [facility] Primary Care Provi scarlett Razia Coles [facility] Primary Care Provider [phone] Neftaly Valerio MD Primary Care Provider [phone] Encounter Details Date Type Department Care Team (Late st Contact Info) Description 01/28/2021 Telemedicine [facility] General Internal Medicine [address] [place] [address], [place] [phone] Emilia Hernandez, HOGSHEAD DUMPER-[address] [place] [phone] Social History Tobacco Use Types Packs/Day Years [...] Office Visit [facility] - Nephrology [address] [place] [address], [place] [phone] Josie Almonte, HOGSHEAD DUMPER-HOSTEL MANAGER [address] [place] [address] [place] [address] Roxana Gallardo MD [address] [place] [address] 2L [place] [address] 02/08/2025 10:30 AM CDT Office Visit [facility] - Urology [address] [place] [phone] Josie Almonte, HOGSHEAD DUMPER-HOSTEL MANAGER [address] [place] [address] [place] [address] 02/15/2025 10:15 AM CDT Office Visit [facility] - Vascular Surgery [address] [place] [address], [place] [phone] Margot North MD [facility] 2L [place] [phone] 03/13/2025 8:50 AM CDT Office Visit [facility] - MACHINERY RIGGER [address] [facility] [address] [place] [address] Titus Kong MD [address] [address] 03/14/2025 9:00 AM CDT Office Visit [facility] - Ophthalmology [address] [place] [phone] 03/16/2025 8:30 AM CDT Office Visit [facility] - Internal Med [address] [place] [phone] Neftaly Valerio MD [facility] [place] [address] 04/20/2025 9:00 AM CDT Office Visit [facility] - Internal Med [address] [place] [phone] Neftaly Valerio MD [facility] [place] [address] 05/04/2025 10:00 AM CDT Office Visit [facility] - Rheumatology [address] [place] [phone] Gala Post APRN-[address] [phone] Kenny Braun MD [address] [place] [address] 2L [place] [phone] 06/30/2025 9:40 AM CDT Office Visit [facility] - General Dermatology [address], [facility] [address] [place] [address] Robyn Babcock MD [address] [place] [address] 3L [place] [address] 12/11/2025 9:00 AM NEEDLE LOOM WEAVER Appointment [facility] [address] [place] [address] documented as of this encounter Visit Diagnoses Not on filedocumented in this encounter Care Teams Printing Shop Supervisor Relationship Specialty Start Date End Date Emilia Hernandez APRN-HOSTEL MANAGER PCP - General 04/30/18 06/17/21 Edgar Watson MD [address] [facility] 2L DIV [place] [address] PCP - General 06/18/21 07/16/21 Emilia Hernandez APRN-HOSTEL MANAGER [address] [facility] 2L DIV OF [facility] [place] [phone] PCP - General 07/17/21 11/12/21 Razia Coles APRN-HOSTEL MANAGER [address] [place] [phone] PCP - General 11/13/21 12/07/22 Neftaly Valerio MD [address] [place] [address] PCP - General Internal Medicine 07/18/24 documented as of this encounter
--- OUTSIDE RECORDS SUMMARY | 2025-01-24 13:44 | XMS_ITS | Referral Summary ---
Author Organization [facility] Address [address] [facility] [place] [address] Care Team Providers Care Sleeve Baster Name Role Phone Neftaly Valerio MD Primary Care Provider [phone] Source Comments [facility],non-owned Affiliates and Associated Physician Practices is amultiple site organization consisting of ambulatory clinics and hospital sitesin [place], [place], [place] and [place]. This disclosure is being madepursuant to the Care Everywhere program and may not contain all information available regarding this patient. Last updated 18.[facility] Encounters Date Type Department Care Team Description 01/23/2025 Travel 01/22/2025 Telephone [facility] [place] [address] Melo Orr MD Advice Only; Cellulitis 01/02/2025 Travel 12/26/2024 Telephone [facility] [place] [address] Neftaly Valerio MD Screening Colonoscopy 12/15/2024 Orders Only [facility] [address] [place] [phone] Neftaly Valerio MD Class 2 severe obesity due to excess calories with serious comorbidity and body mass index (BMI) of 39.0 to 39.9 in adult (HCC) ; Prediabetes 12/12/2024 Telephone [facility] [address] [place] [phone] Neftaly Valerio MD LABS ONLY 12/12/2024 Telephone [facility] - Internal Med [address] [place] [phone] Neftaly Valerio MD Medication Prior Auth Request 12/08/2024 Travel 12/08/2024 10:00 AM SAW OPERATOR Office Visit [facility] - Internal Med [address] [place] [phone] Neftaly Valerio MD Morbid obesity (HCC) (Primary Dx); Lipid screening; Left sciatic nerve pain; Prediabetes; Essential hypertension; Venous insufficiency of both lower extremities 12/06/2024 Travel 12/05/2024 9:00 AM SAW OPERATOR - 12/05/2024 11:59 PM [facility] Hospital Encounter [facility] [address] [facility] [address] [place] [address] Neftaly Valerio MD Discharge Disposition: Home or [...] Active vitamin D, ergocalciferol, (Drisdol) 1.25 MG (99145 UT) capsuleIndication s:Vitamin D deficiency Take 1 [...] 12/13/2024 Assessment & Plan (12/13/2024 1:51 PM SAW OPERATOR): - NSAIDs and tylenol as needed - Ref to physical therapy - Discussed that is likely at least somewhat contributed to by obesity, weight loss will often be helpful Prediabetes 12/13/2024 Assessment & Plan (12/13/2024 1:53 PM SAW OPERATOR): - Weight related complication - Check A1c - continue lifestyle changes to diet and exercise as able - Recommend GLP-1 see obesity section Preventative health care 12/13/2024 Assessment & Plan (12/13/2024 1:55 PM SAW OPERATOR): The 10-year ASCVD risk score (Alena [...] 07/29/2024 Assessment & Plan (12/13/2024 1:58 PM SAW OPERATOR): - Following with vascular surgery Chronic [...] 03/17/2017 Assessment & Plan (12/13/2024 1:57 PM SAW OPERATOR): - Has been trying to lose [...] 09/17/2015 Assessment & Plan (12/13/2024 1:49 PM SAW OPERATOR): - Good control - Continue meds [...] 11/24/2019 Assessment & Plan (10/27/2019 10:23 AM SAW OPERATOR): Based on appearance, consist with drug rash. Patient denies any new medications. Would not expect reaction of this severity from Bactrim after tolerating previously for 7 days. Based on exam, ok to stop Bactrim--would is healing well. Zyrtec 20mg daily for 3 days then 10mg daily Stop new soap Cellulitis of right lower extremity 10/27/2019 12/13/2024 Assessment & Plan (10/27/2019 10:24 AM SAW OPERATOR): Appears to be healing--ok to stop [...] Comments Blood Pressure 122/65 12/08/2024 10:01 AM SAW OPERATOR Pulse 72 12/08/2024 10:01 AM SAW OPERATOR Temperature 36.7 C (98.1 F) 12/08/2024 10:01 AM SAW OPERATOR Respiratory Rate 18 09/28/2024 9:40 AM SAW OPERATOR Oxygen Saturation 99% 12/08/2024 10:01 AM SAW OPERATOR Inhaled Oxygen Concentration - - Weight 103.4 kg (228 lb) 12/08/2024 10:01 AM SAW OPERATOR Height 162.6 cm (5' 4 ) 12/08/2024 10:01 AM SAW OPERATOR Body Mass Index 39.14 12/08/2024 10:01 AM SAW OPERATOR Functional Status Functional Status Response Date [...] Office Visit [facility] Nephrology [address] [place] [address], [facility] [place] [address] Josie Almonte, STATE WILDLIFE OFFICER-PAPETERIE TABLE ASSEMBLER [address] [facility] [place] [address] [place] [address] [place] [address] 2L [place] [address] 02/08/2025 10:30 AM CDT Office Visit [facility] Urology [address] [place] [address] [address] [place] [address] Josie Almonte, STATE WILDLIFE OFFICER-PAPETERIE TABLE ASSEMBLER [address] [place], [place] [address]T [place] [address] 02/15/2025 10:15 AM CDT Office Visit [facility] Vascular Surgery [address] [place] [phone] Margot North MD [address] [place] [address] [place] [address] 03/13/2025 8:50 AM CDT Office Visit [facility] - TRUCK CATERER [address] [facility] [address] [place] [phone] Titus Kong MD [address] [place] [address] 03/14/2025 9:00 AM CDT Office Visit [facility] Ophthalmology [address] [place] [phone] 03/16/2025 8:30 AM CDT Office Visit [facility] [address] [place] [phone] Neftaly Valerio MD [address] [place] [address] 04/20/2025 9:00 AM CDT Office Visit [facility] [address] [place] [phone] Neftaly Valerio MD [address] [place] [address] 05/04/2025 10:00 AM CDT Office Visit [facility] - Rheumatology [address] [place] [phone] Gala Post APRN-[address] [address] Kenny Braun MD [address] 2L [place] [phone] 06/30/2025 9:40 AM CDT Office Visit [facility] - General Dermatology [address], [address] [place] [address] Robyn Babcock MD [address] 3L [place] [address] 12/11/2025 9:00 AM SAW OPERATOR Appointment [facility] Breast Care [address] [facility] [address] [place] [address] Medical Devices Implanted Type Area Pourer Buggy Ladle Device Identifier Shelf Expiration Date Model / Serial / Lot Stent Uret 6fr 22cm Pgtl Crv Tpr Tip Implanted:Qty: 1 on 11/27/2018 by Luis Daniel Paz MD at [facility] Left: Ureter Node Management Scimed 08/19/2021 [id number] / / [id number] Procedures Procedure Name Priority Date/Time Associated Diagnosis Comments HEMOGLOBIN A1C Routine 12/09/2024 12:00 PM SAW OPERATOR Morbid obesity (HCC) Prediabetes Essential hypertension LIPID PROFILE Routine 12/09/2024 12:00 PM SAW OPERATOR Lipid screening CBC W AUTO DIFFERENTIAL Routine 12/09/2024 12:00 PM SAW OPERATOR Morbid obesity (HCC) Essential hypertension COMPREHENSIVE METABOLIC PANEL Routine 12/09/2024 12:00 PM SAW OPERATOR Morbid obesity (HCC) Essential hypertension MAMMO BILAT SCREENING W JAVAN Routine 12/05/2024 10:21 AM SAW OPERATOR Visit for screening mammogram HEPATITIS C AB SCREEN RFLX NAAT QUANT STAT 11/26/2018 2:10 PM SAW OPERATOR DEXA BONE DENSITY AXIAL SKELETON Routine 01/04/2014 9:48 AM SAW OPERATOR from Last 3 Months or Most Recently Relevant to Health Maintenance Results * (ABNORMAL) HEMOGLOBIN A1C (12/09/2024 12:00 PM SAW OPERATOR) Hemoglobin A1c 5.8(H) 4.8 - 5.6 % [facility] INSURANCE BILL Comment: Prediabetes: 5.7 - 6.4 Diabetes: >6.4 Glycemic control for adults with diabetes: <7.0 Blood BLOOD SPECIMEN / Unknown 12/09/2024 12:00 PM SAW OPERATOR 12/09/2024 Narrative [facility] INSURANCE BILL - 12/10/2024 9:09 AM SAW OPERATOR Performed at: - [address] [id number] Submarine Diver: Amadou Mckeon PhD, Phone: [phone] Neftaly Valerio MD LAB - CHEMISTRY KRIS MAC [facility] INSURANCE BILL [address] [place] [address] * CBC WITH DIFFERENTIAL (12/09/2024 12:00 PM SAW OPERATOR) Pathologist [facility] WBC 8.9 3.4 [...] BLOOD SPECIMEN / Unknown 12/09/2024 12:00 PM SAW OPERATOR 12/09/2024 Narrative [facility] INSURANCE BILL - 12/10/2024 9:09 AM SAW OPERATOR Performed at: - [address] [id number] Submarine Diver: Amadou Mckeon PhD, Phone: [phone] Neftaly Valerio MD LAB - HEMATOLOGY ORD ERABLES [facility] INSURANCE BILL [address] [place] [address] * (ABNORMAL) COMPREHENSIVE METABOLIC PANEL (12/09/2024 12:00 PM SAW OPERATOR) Glucose 121(H) 70 - 99 mg/dL [...] BLOOD SPECIMEN / Unknown 12/09/2024 12:00 PM SAW OPERATOR 12/09/2024 Narrative [facility] INSURANCE BILL - 12/11/2024 7:07 AM SAW OPERATOR Performed at: [address] [id number] Submarine Diver: Amadou Mckeon PhD, Phone: [phone] Neftaly Valerio MD LAB - CHEMISTRY KRIS MAC Performing Organization Address [facility] de Phone Number [facility] INSURANCE BILL [address] [place] [address] * (ABNORMAL) LIPID PROFILE (12/09/2024 12:00 PM SAW OPERATOR) [facility] Cholesterol 201(H) 100 - 199 mg/dL [facility] INSURANCE BILL Triglycerides 388(H) 0 - 149 mg/dL [facility] INSURANCE BILL HDL Cholesterol 50 >39 mg/dL [facility] INSURANCE BILL VLDL Calculated 63(H) 5 - 40 mg/dL [facility] INSURANCE BILL LDL Calculated 88 0 - 99 mg/dL [facility] INSURANCE BILL Blood BLOOD SPECIMEN / Unknown 12/09/2024 12:00 PM SAW OPERATOR 12/09/2024 Narrative [facility] INSURANCE BILL - 12/10/2024 3:07 PM SAW OPERATOR Performed at: [address] [id number] Submarine Diver: Amadou Mckeon PhD, Phone: [phone] Neftaly Valerio MD LAB - CHEMISTRY KRIS MAC Performing Organization Address [facility] de Phone Number [facility] INSURANCE BILL [address] [place] [address] * Mammo Bilat Screening W Javan (12/05/2024 10:21 AM SAW OPERATOR) Anatomical Region Laterality Modality Breast Bilateral Mammography 12/05/2024 2:10 PM SAW OPERATOR Impressions 12/05/2024 2:18 PM SAW OPERATOR IMPRESSION: No mammographic evidence of malignancy in either breast. ASSESSMENT: BIRADS Category 1: Negative mammogram. RECOMMENDATION: Bilateral screening mammogram in one year. Thank you for allowing us to participate in the care of your patient. [facility] Breast Care utilizes [employer] as a reminder system to notify patients of their next recommended mammogram. > Interpreting Provider: Vanessa Vazquez MD on 12/05/2024 2:18 PM Narrative 12/05/2024 2:18 PM SAW OPERATOR EXAMINATION: Digital screening mammogram. Low-dose full-field [...] SCREEN RFLX NAAT QUANT (11/26/2018 2:10 PM SAW OPERATOR) Hepatitis C Antibody Non-react muna Non-reac tive 11/26/2018 2:57 PM SAW OPERATOR [facility] Comment: Hepatitis C Antibody screen [...] Unknown Venipuncture / Unknown 11/26/2018 2:10 PM SAW OPERATOR 11/26/2018 2:15 PM SAW OPERATOR Joycelyn Mann STATE WILDLIFE OFFICER-PAPETERIE TABLE ASSEMBLER LAB - CHEMISTRY ORDERABLES [address] [phone] * DEXA BONE DENSITY AXIAL SKELETON (01/04/2014 9:48 AM SAW OPERATOR) Anatomical Region Laterality Modality Other Narrative 01/04/2014 3:43 PM SAW OPERATOR Examination: Dual energy x-ray absorptiometry of the lumbar spine and hip. Clinical Indication: Postmenopausal, fracture right foot. Findings: Detailed data from the exam is sent separately to the ordering physician and is also available on [employer], the Radiology Department's computerized picture archive system [...] the orderingphysician and is also available on [employer], the Radiology Department'[employer] picture archive system SUMMARY: No prior study [...] D.O. on 01/04/20143:43 PM . Emilia Hernandez APRN-PAPETERIE TABLE ASSEMBLER DEXA ORDERA BLES from Last 3 Months or Most Recently Relevant to Health Maintenance Administered Medications Advance Directives * Full Code (Latest Code Status on File) Date Activated Date Inactivated Comments 11/26/2018 5:01 PM 11/27/2018 5:02 PM Care Teams Sleeve Baster Relationship Specialty Start Date End Date Neftaly Valerio MD [facility] [place] [address] PCP - General Internal Medicine 07/18/24
--- OUTSIDE RECORDS SUMMARY | 2025-01-24 13:44 | XMS_ITS | Clinical Summary ---
Author Organization [facility] Address [facility] [place] [address] Care Team Providers Care Change Manager Name Role Phone Emilia Hernandez NP Primary [...] Comments Blood Pressure 120/66 01/20/2022 9:02 AM HEALTHCARE OR MEDICAL Pulse 75 01/20/2022 9:02 AM HEALTHCARE OR MEDICAL Temperature - - Respiratory Rate - - Oxygen Saturation 95% 01/20/2022 9:02 AM HEALTHCARE OR MEDICAL Inhaled Oxygen Concentration - - Weight 106.6 kg (235 lb) 01/20/2022 9:02 AM HEALTHCARE OR MEDICAL Height 162.6 cm (5' 4 ) 01/20/2022 9:02 AM HEALTHCARE OR MEDICAL Body Mass Index 40.34 01/20/2022 9:02 AM HEALTHCARE OR MEDICAL Plan of Treatment Not on file Insurance Care Teams Change Manager Relationship Specialty Start Date End Date Emilia Hernandez NP [address] [place] [address] PCP - General Nurse Practitioner 01/28/21
--- OUTSIDE RECORDS SUMMARY | 2025-01-24 13:44 | XMS_ITS | Referral Summary ---
Author Organization [facility] Address [facility] [place] [address] Care Team Providers Care Technical Rep Name Role Phone Emilia Hernandez NP Primary [...] Comments Blood Pressure 120/66 01/20/2022 9:02 AM ENGINE DESIGNER Pulse 75 01/20/2022 9:02 AM ENGINE DESIGNER Temperature - - Respiratory Rate - - Oxygen Saturation 95% 01/20/2022 9:02 AM ENGINE DESIGNER Inhaled Oxygen Concentration - - Weight 106.6 kg (235 lb) 01/20/2022 9:02 AM ENGINE DESIGNER Height 162.6 cm (5' 4 ) 01/20/2022 9:02 AM ENGINE DESIGNER Body Mass Index 40.34 01/20/2022 9:02 AM ENGINE DESIGNER Plan of Treatment Not on file Insurance [facility] [employer] Care Teams Technical Rep Relationship Specialty Start Date End Date Emilia Hernandez NP [address] [place] [address] PCP - General Nurse Practitioner 01/28/21
--- OUTSIDE RECORDS SUMMARY | 2025-01-24 13:44 | XMS_ITS | Encounter Summary ---
Author Organization [facility] Address [address] [facility] [place] [address] Care Team Providers Care Driver Wheelchair Name Role Phone Emilia Hernandez APRN-FLY RAISER LOCKSTITCH Primary Care Provi scarlett Edgar Watson MD Primary Care Provider [phone] Emilia Hernandez MIDWIFE-FLY RAISER LOCKSTITCH Primary Care Provi scarlett Razia Coles MIDWIFE-FLY RAISER LOCKSTITCH Primary Care Provider [phone] Neftaly Valerio MD Primary Care Provider [phone] Reason for Visit * Reason Onset Date Comments Results 10/27/2018 Results 10/28/2018 1st attempt to c ontact pt with results LM Results 11/05/2018 2nd attempt to c ontact pt with results LM Results 11/11/2018 3rd attempt to c ontact pt with results LM Encounter Details Date Type Department Care Team (Late st Contact Info) Description 10/27/2018 Telephone [facility] General Internal Medicine [address] [facility] [address] [place] [address] Emilia Hernandez, MIDWIFE-FLY RAISER LOCKSTITCH [address] OF [facility] [place] [address] Results; Results (1st attempt to contact pt [...] Emilia Hernandez APRN-CNP - 11/11/2018 9:35 AM FOREIGN DIPLOMAT Letters with mammogram results come from mammography department. She should have received by now. ELZA Faith IGN DIPLOMAT * Telephone Encounter - Kathleen Medina - 11/11/2018 9:08 AM CST Please advise if a letter with results should be sent to patient. IGN DIPLOMAT * Telephone Encounter - Kathleen Medina - 11/11/2018 9:08 AM CST 3rd attempt to contact patient and notify of mammogram results and unable to reach at this time. ? Left message @ [phone]??with affiliation and contact number, , no pertient patientinformation left on voicemail. ? TERRY Hernandez's Message Please tell her they were negative. ELZA Faith IGN DIPLOMAT * Telephone Encounter - Kathleen Medina - 11/05/2018 11:46 AM CST 2nd attempt to contact patient and notify of mammogram results and unable to reach at this time. ?? Left message @ [phone] with affiliation and contact number, , no pertient patient information left on voicemail. ?? Will re attempt at a later time ?? RETIREMENT CONSULTANT Mary's Message Please tell her they were negative. ELZA Faith IGN DIPLOMAT * Telephone Encounter - Kathleen Medina - 10/28/2018 12:33 PM CST 1st attempt to contact patient and notify of mammogram results and unable to reach at this time. Left message @ [phone] with affiliation and contact number, , no pertient patient information left on voicemail. Will re attempt at a later time RETIREMENT CONSULTANT Mary's Message Please tell her they were negative. ELZA Faith IGN DIPLOMAT * Telephone Encounter - Eimlia Hernandez APRN-CNP - 10/27/2018 4:13 PM FOREIGN DIPLOMAT Please tell her they were negative. ELZA Faith IGN DIPLOMAT * Telephone Encounter - Hayden Lam - 10/27/2018 2:28 PM CST Pt Amaris Butler Pt called to get the results of her mammogram, Thank you very much Hayden IGN DIPLOMAT documented in this encounter Plan of Treatment Upcoming Encounters Date Type Department Care Team (Late st Contact Info) Description 02/01/2025 1:50 PM CDT Office Visit [facility] Nephrology [address] [place] [address], [place] [address] Josie Almonte, MIDWIFE-FLY RAISER LOCKSTITCH [address] [place], [place] [address]T [place] [address] [place] [address] [place] [address] 2L [place] [address] 02/08/2025 10:30 AM CDT Office Visit [facility] - Urology [address] [facility] [address] [place] [address] Josie Almonte, MIDWIFE-FLY RAISER LOCKSTITCH [address] [place], [place] [address]T [place] [address] 02/15/2025 10:15 AM CDT Office Visit [facility] - Vascular Surgery [address] [place] [phone] Margot North MD [address] [place] [address] 2L [place] [address] 03/13/2025 8:50 AM CDT Office [facility] - CLINICAL RESOURCE MANAGER [address] [facility] [address] [place] [phone] Titus Kong MD [address] [place] [address] 03/14/2025 9:00 AM CDT Office Visit [facility] - Ophthalmology [address] [place] [address], [place] [address] 03/16/2025 8:30 AM CDT Office Visit [facility] - Internal Med [address] [place] [phone] Neftaly Valerio MD [address] [place] [address] 04/20/2025 9:00 AM CDT Office Visit [facility] Internal Med [address] [place] [phone] Neftaly Valerio MD [address] [place] [address] 05/04/2025 10:00 AM CDT Office Visit [facility] - Rheumatology [address] [place] [phone] Gala Post APRN-FLY RAISER LOCKSTITCH [address] [place] [phone] Kenny Braun MD [address] [place] [address] 2L [place] [address] 06/30/2025 9:40 AM CDT Office Visit [facility] - General Dermatology [address], [facility] [address] [place] [address] Robyn Babcock MD [address] [place] [address] [address] [place] [address] 12/11/2025 9:00 AM FOREIGN DIPLOMAT Appointment [facility] Breast Care [address] [place] [address] [address] [place] [address] documented as of this encounter Visit Diagnoses Not on filedocumented in this encounter Care Teams Driver Wheelchair Relationship Specialty Start Date End Date Emilia Hernandez, MIDWIFE-FLY RAISER LOCKSTITCH PCP - General 04/30/18 06/17/21 Edgar Watson MD [address] [place] [address] 2L DIV [place] [address] PCP - General 06/18/21 07/16/21 Emilia Hernandez, MIDWIFE-FLY RAISER LOCKSTITCH [address] [place] [address] OF [facility] [place] [phone] PCP - General 07/17/21 11/12/21 Razia Coles MIDWIFE-FLY RAISER LOCKSTITCH [address] [place] [phone] PCP - General 11/13/21 12/07/22 Neftaly Valerio MD [address] [place] [address] PCP - General Internal Medicine 07/18/24 documented as of this encounter
--- OUTSIDE RECORDS SUMMARY | 2025-01-24 13:44 | XMS_ITS | Encounter Summary ---
Author Organization [facility] Health Address [address] [facility] [place] [address] Care Team Providers Care Venue Coordinator Name Role Phone Razia Coles Primary Care Provider [phone] Neftaly Valerio MD Primary Care Provider [phone] Reason for Visit * Reason Onset Date Comments Appointment 06/05/2022 Encounter Details Date Type Department Care Team (Late st Contact Info) Description 06/05/2022 Telephone [facility] [address] [place] [address] Razia Coles APRN-CNP [address] [place] [phone] Appointment Social History Tobacco Use Types Packs/Day [...] call: Patient Amaris Butler called into the [facility] scheduling line requesting to schedule a appointment with . Would the scheduling team reach out to the patient to r/s her bumped appt from 07/25/2022 if possible? Patient Call Back number: [phone] documented in this encounter Plan of Treatment Upcoming Encounters Date Type Department Care Team (Late st Contact Info) Description 02/01/2025 1:50 PM CDT Office Visit [facility] - Nephrology [address] [place] [address], [place] [phone] Josie Almonte, COATING SUPERVISOR-FISHING ROD TRIMMER [address] [place] [address] [place] [address] Roxana Gallardo MD [address] [place] [address] 2L [place] [address] 02/08/2025 10:30 AM CDT Office Visit [facility] - Urology [address] [place] [address] [address] [place] [address] Josie Almonte, COATING SUPERVISOR-FISHING ROD TRIMMER [address] [place] [address] [place] [address] 02/15/2025 10:15 AM CDT Office Visit [facility] - Vascular Surgery [address] [place] [address], [place] [address] Margot North MD [address] [place] [address] 2L [place] [address] 03/13/2025 8:50 AM CDT Office Visit [facility] - RUG INSPECTOR HELPER [address] [facility] [address] [place] [address] Tiuts Kong MD [address] [place] [address] 03/14/2025 9:00 AM CDT Office Visit [facility] - Ophthalmology [address] [place] [phone] 03/16/2025 8:30 AM CDT Office Visit [facility] - Internal Med [address] [place] [address] Neftaly Valerio MD [facility] [place] [address] 04/20/2025 9:00 AM CDT Office Visit [facility] - Internal Med [address] [place] [address] Neftaly Valerio MD [address] [place] [address] 05/04/2025 10:00 AM CDT Office Visit [facility] - Rheumatology [address] [place] [address] Gala Psot, COATING SUPERVISOR-[facility] [address] [address] Kenny Braun MD [address] [place] [address] [place] [address] 06/30/2025 9:40 AM CDT Office Visit [facility] - General Dermatology [address], [facility] [address] [place] [address] Robyn Babcock MD [address] [facility] 3L [place] [address] 12/11/2025 9:00 AM PACKER INSPECTOR Appointment [facility] [address] [facility] [address] [place] [address] documented as of this encounter Visit Diagnoses Not on filedocumented in this encounter Care Teams Venue Coordinator Relationship Specialty Start Date End Date Razia Coles APRN-FISHING ROD TRIMMER [address] [place] [phone] PCP - General 11/13/21 12/07/22 Neftaly Valerio MD [address] [place] [address] PCP - General Internal Medicine 07/18/24 documented as of this encounter
--- OUTSIDE RECORDS SUMMARY | 2025-01-24 13:44 | XMS_ITS | Encounter Summary ---
Author Organization [facility] Health Address [address] [facility] [place] [address] Care Team Providers Care Personal Security Specialist Name Role Phone Razia Coles Primary Care Provider [phone] Neftaly Valerio MD Primary Care Provider [phone] Reason for Visit * Reason Onset Date Comments Congestion 10/23/2022 Encounter Details Date Type Department Care Team (Late st Contact Info) Description 10/23/2022 Telephone [facility] [address] [place] [address] Raiza Coles APRN-CNP [address] [place] [phone] Congestion Social History Tobacco Use Types Packs/Day [...] Candice Courtney RN - 10/23/2022 10:53 AM DAYCARE WORKER Images from the original note were not [...] and cough suppressant to help with symptoms. ARE WORKER documented in this encounter Plan of Treatment Upcoming Encounters Date Type Department Care Team (Late st Contact Info) Description 02/01/2025 1:50 PM CDT Office Visit [facility] - Nephrology [address] [place] [address], [place] [address] Josie Almonte, PRODUCTION WELDER-STENOTYPE OPERATOR [address] [place], [place] [address]T [place] [address] Roxana Gallardo MD [address] [place] [address] 2L [place] [address] 02/08/2025 10:30 AM CDT Office Visit [facility] - Urology [address] [place] [address] [address] [place] [address] Josie Almonte, PRODUCTION WELDER-STENOTYPE OPERATOR [address] [place], [place] [address]T [place] [address] 02/15/2025 10:15 AM CDT Office Visit [facility] - Vascular Surgery [address] [place] [phone] Margot North MD [address] [place] [address] [place] [address] 03/13/2025 8:50 AM CDT Office Visit [facility] - DISPENSING LEAD [address] [facility] [address] [place] [address] Titus Kong MD [address] [place] [address] 03/14/2025 9:00 AM CDT Office Visit [facility] - Ophthalmology [address] [place] [address] 03/16/2025 8:30 AM CDT Office Visit [facility] - Internal Med [address] [place] [address] Neftaly Valerio MD [address] [place] [address] 04/20/2025 9:00 AM CDT Office Visit [facility] - Internal Med [address] [place] [address] Neftaly Valerio MD [address] [place] [address] 05/04/2025 10:00 AM CDT Office Visit [facility] - Rheumatology [address] [place] [address] Gala Post APRN-[address] [address] Kenny Branu MD [address] [facility] 2L [place] [address] 06/30/2025 9:40 AM CDT Office Visit [facility] - General Dermatology [address], [address] [place] [address] Robyn Babcock MD [address] [facility] 3L DE[place] [address] 12/11/2025 9:00 AM DAYCARE WORKER Appointment [address] [place] [address] documented as of this encounter Visit Diagnoses Not on filedocumented in this encounter Care Teams Personal Security Specialist Relationship Specialty Start Date End Date Razia Coles APRN-STENOTYPE OPERATOR [address] [place] [phone] PCP - General 11/13/21 12/07/22 Neftaly Valerio MD [address] [place] [address] PCP - General Internal Medicine 07/18/24 documented as of this encounter
--- OUTSIDE RECORDS SUMMARY | 2025-01-24 13:44 | XMS_ITS | Encounter Summary ---
Author Organization [facility] Health Address [address] [facility] [place] [address] Care Team Providers Care Isolation Washer Name Role Phone Razia Coles ENEIDA-DYE ROOM HELPER Primary Care Provider [phone] Neftaly Valerio MD Primary Care Provider [phone] Reason for Visit * Reason Onset Date Comments Results 01/22/2022 Encounter Details Date Type Department Care Team (Late st Contact Info) Description 01/22/2022 Telephone [facility] General [facility] [address] [facility], [place] [address] Robyn Babcock MD [facility] [facility] 3 [place] [address] Results Social History Tobacco Use Types Packs/Day [...] biopsy is benign. No further treatment needed. ER/WAITRESS COCKTAIL LOUNGE * Telephone Encounter - Alejandro Lott - 01/22/2022 2:03 PM CST Pt called today concerning lab results. Said MyChart cannot be accessed. Requests a phone call to discuss. Please advise. ER/WAITRESS COCKTAIL LOUNGE documented in this encounter Plan of Treatment Upcoming Encounters Date Type Department Care Team (Late st Contact Info) Description 02/01/2025 1:50 PM CDT Office Visit [facility] - Nephrology [address] [place] [address] [place] [address] Josie Almonte, CAN COVERER-DYE ROOM HELPER [address] [place], [place] [address]T [place] [address] Roxana Gallardo MD [address] [place] [address] [place] [address] 02/08/2025 10:30 AM CDT Office Visit [facility] - Urology [facility] [address] [place] [address] Josie Almonte, CAN COVERER-DYE ROOM HELPER [address] [place], [place] [address]T [place] [address] 02/15/2025 10:15 AM CDT Office Visit [facility] - Vascular Surgery [address] [place] [address] Margot North MD [address] [facility] 2L DIV [place] [address] 03/13/2025 8:50 AM CDT Office Visit [facility] - SCRAP METAL COLLECTOR [address] [facility] [address] [place] [address] Titus Kong MD [address] [place] [address] 03/14/2025 9:00 AM CDT Office Visit [facility] - Ophthalmology [address] [place] [address] 03/16/2025 8:30 AM CDT Office Visit [facility] - Internal Med [address] [place] [address] Neftaly Valerio MD [address] [place] [address] 04/20/2025 9:00 AM CDT Office Visit [facility] - Internal Med [address] [place] [address] Neftaly Valerio MD [address] [place] [address] 05/04/2025 10:00 AM CDT Office Visit [facility] - Rheumatology [address] [place] [address] Gala Post APRN-[address] [address] Kenny Braun MD [facility]5 [facility] 2L [place] [address] 06/30/2025 9:40 AM CDT Office Visit [facility] - General Dermatology [address], [address] [place] [address] Robyn Babcock MD [address] [facility] 3L [place] [address] 12/11/2025 9:00 AM WAITER/WAITRESS COCKTAIL LOUNGE Appointment [facility] [address] [facility] [address] [place] [address] documented as of this encounter Visit Diagnoses Not on filedocumented in this encounter Care Teams Isolation Washer Relationship Specialty Start Date End Date Razia Coles APRN-DYE ROOM HELPER [address] [place] [address] PCP - General 11/13/21 12/07/22 Neftaly Valerio MD [address] [place] [address] PCP - General Internal Medicine 07/18/24 documented as of this encounter
--- OUTSIDE RECORDS SUMMARY | 2025-01-24 13:44 | XMS_ITS | Patient Health Summary ---
Author Organization [facility] Send Word Now Address [address] [place] [address] Care Team Providers Care Job Estimator Name Role Phone Neftaly Valerio MD Primary Care Provider [phone] Note from [facility],non-owned Affiliates and Associated Physician Practices is amultiple site organization consisting of ambulatory clinics and hospital sitesin [place], [place], [place] and [place]. This disclosure is being madepursuant to the Care Everywhere program and may not contain all information available regarding this patient. Last updated 18.[facility] Allergies * Sulfa Drugs(Rash) -Medium Criticality Medications [...] * vitamin D, ergocalciferol, (Drisdol) 1.25 MG (66859 UT) capsule(Started 07/20/2024) Take 1 (one) capsule [...] Comments Blood Pressure 122/65 12/08/2024 10:01 AM [facility] Pulse 72 12/08/2024 10:01 AM [facility] Temperature 36.7 C (98.1 F) 12/08/2024 10:01 AM [facility] Respiratory Rate 18 09/28/2024 9:40 AM [facility] Oxygen Saturation 99% 12/08/2024 10:01 AM [facility] Inhaled Oxygen Concentration - - Weight 103.4 kg (228 lb) 12/08/2024 10:01 AM [facility] Height 162.6 cm (5' 4 ) 12/08/2024 10:01 AM [facility] Body Mass Index 39.14 12/08/2024 10:01 AM [facility] Medical Devices Implanted Type Area Flavor Tank Tender Device Identifier Shelf Expiration Date Model / Serial / Lot Stent Uret 6fr 22cm Pgtl Crv Tpr Tip Implanted:Qty: 1 on 11/27/2018 by Luis Daniel Paz MD at [facility] Left: Ureter [id number] Scimed 08/19/2021 [id number] / / [id number] Procedures * HEMOGLOBIN A1C(Performed 12/09/2024) Performed for [...] * (ABNORMAL) HEMOGLOBIN A1C (12/09/2024 12:00 PM [facility] [facility]) Only the most recent of3 resultswithin the time period is included. Hemoglobin A1c 5.8(H) 4.8 - 5.6 % [facility] INSURANCE BILL Comment: Prediabetes: 5.7 - 6.4 Diabetes: >6.4 Glycemic control for adults with diabetes: <7.0 Blood BLOOD SPECIMEN / Unknown 12/09/2024 12:00 PM [facility] 12/09/2024 Narrative [facility] INSURANCE BILL - 12/10/2024 9:09 AM [facility] [employer] Performed at: - [facility] [address] [id number] Fine Arts Model: Amadou Mckeon PhD, Phone: [phone] Neftaly Valerio MD LAB - CHEMISTRY KRIS MAC [facility] INSURANCE BILL [address] [place] [address] * CBC WITH DIFFERENTIAL (12/09/2024 12:00 PM [facility] [facility]) Only the most recent of5 resultswithin the time period is included. Pathologist [facility] WBC 8.9 3.4 - 10.8 x10E3/uL [facility] [...] BLOOD SPECIMEN / Unknown 12/09/2024 12:00 PM [facility] 12/09/2024 Narrative [facility] INSURANCE BILL - 12/10/2024 9:09 AM [facility] Performed at: [address] [id number] Fine Arts Model: Amadou Mckeon PhD, Phone: [phone] Neftaly Valerio MD LAB - HEMATOLOGY ORD ERABLES [facility] INSURANCE BILL [address] [place] [address] * (ABNORMAL) COMPREHENSIVE METABOLIC PANEL (12/09/2024 12:00 PM [facility]) Only the most recent of12 resultswithin the [...] BLOOD SPECIMEN / Unknown 12/09/2024 12:00 PM [facility] 12/09/2024 Narrative [facility] INSURANCE BILL - 12/11/2024 7:07 AM [facility] Performed at: [address] [place] [id number] Fine Arts Model: Amadou Mckeon PhD, Phone: [phone] Neftaly Valerio MD LAB - CHEMISTRY KRIS MAC Performing Organization Address [facility] de Phone Number [facility] INSURANCE BILL [address] [place] [address] * (ABNORMAL) LIPID PROFILE (12/09/2024 12:00 PM [facility]) Only the most recent of14 resultswithin the [...] BLOOD SPECIMEN / Unknown 12/09/2024 12:00 PM [facility] 12/09/2024 Narrative [facility] INSURANCE BILL - 12/10/2024 3:07 PM [facility] [facility] Performed at: [address] [place] [id number] Fine Arts Model: Amadou Mckeon PhD, Phone: [phone] Neftaly Valerio MD LAB - CHEMISTRY KRIS MAC [facility] INSURANCE BILL [address] [place] [address] * Mammo Bilat Screening W Javan (12/05/2024 10:21 AM [facility]) Only the most recent of4 resultswithin the time period is included. Anatomical Region Laterality Modality Breast Bilateral Mammography 12/05/2024 2:10 PM [facility] Impressions 12/05/2024 2:18 PM [facility] IMPRESSION: No mammographic evidence of malignancy in either breast. ASSESSMENT: BIRADS Category 1: Negative mammogram. RECOMMENDATION: Bilateral screening mammogram in one year. Thank you for allowing us to participate in the care of your patient. [facility] utilizes [employer] as a reminder system to notify patients of their next recommended mammogram. > Interpreting Provider: Vanessa Vazquez MD on 12/05/2024 2:18 PM Narrative 12/05/2024 2:18 PM [facility] EXAMINATION: Digital screening mammogram. Low-dose full-field digital [...] VAS Bilateral Venous Reflux (10/14/2024 10:56 AM [facility] [facility]) Anatomical Region Laterality Modality Upper Extremity, Lower Extremity Intravascular Ultrasound 10/14/2024 9:46 AM [facility] [employer] [facility] Narrative Procedure Note Nick Ramirez MD - [...] 6:12 AM CDT Performed at: 01 - [facility], [place], [place] [id number] Fine Arts Model: Jani Flores PhD, Phone: [phone] Josie Almonte PAPER TUBE CUTTER-FRONT OFFICE ASSOCIATE LAB - URINE KARLA MILTON ORDERABLES [facility] INSURANCE BILL [address] [place] [address] * CT Renal Stone (08/18/2024 7:09 AM CDT) Anatomical Region Laterality Modality Abdomen Computed Tomogra phy 08/18/2024 7:29 AM CDT Impressions 08/18/2024 2:09 PM CDT Impression: A few small nonobstructing bilateral renal stones. No hydronephrosis seen. No ureteric stones identified. Urinary bladder was empty and no bladder stones identified. > Dictated by Dk Han MD, MD (residential field manager). I, Dereck Crum MD have personally reviewed and interpreted this examination/study. > Interpreting Provider: Dereck Crum MD on 08/18/2024 2:09 PM Narrative 08/18/2024 2:09 PM CDT PROCEDURE: CT RENAL STONE, DATE/TIME OF EXAM: 08/18/2024 7:11 AM, LOCATION [facility] INDICATION: N20.0: Kidney stone ADDITIONAL CLINICAL [...] STONE, DATE/TIME OF EXAM: 08/18/2024 7:11 AM,LOCATION [facility] INDICATION: N20.0: Kidney stone ADDITIONAL CLINICAL [...] > Dictated by Dk Han MD, MD (residential field manager). I, Dereck Crum MD have personally reviewed and interpreted this examination/study. > Interpreting Provider: Dereck Crum MD on 42:09 PM Josie Almonte APRN-FRONT OFFICE ASSOCIATE CT ORDERABLES * REF LAB-SPECIMEN STATUS REPORT (08/10/2024 10:15 AM CDT) Specimen Status Report Comment [facility] INSURANCE BILL Comment: Ambig Abbrev BMP8 Default Ambig Abbrev BMP8 Default A hand-written panel/profile was received from your office. In accordance with the [employer] Ambiguous Test Code Policy dated May 2003, we have completed your order by using the closest currently or formerly recognized AMA panel. We have assigned Basic Metabolic Panel (8), Test Code #735122 to this request. If this is not the testing you wished to receive on this specimen, please contact the [employer] Client Inquiry/Technical Services Department to clarify the test order. We appreciate your business. 08/10/2024 10:1 5 AM CDT 08/10/2024 Narrative [facility] INSURANCE BILL - 08/11/2024 7:11 AM CDT Performed at: - [address] [id number] Fine Arts Model: Amadou Mckeon PhD, Phone: [phone] Josie Almonte APRN-FRONT OFFICE ASSOCIATE LAB - CHEMISTRY ORDERABLES [facility] INSURANCE BILL [address] [place] [address] * (ABNORMAL) URIC ACID BLOOD (08/10/2024 10:15 AM CDT) Uric Acid 9.2(H) 3.0 - 7.2 mg/dL [facility] INSURANCE BILL Comment:Therapeutic target f or gout patients: <6.0 08/10/2024 10:1 5 AM CDT 08/10/2024 Narrative [facility] INSURANCE BILL - 08/11/2024 7:11 AM CDT Performed at: [address] [place] [id number] Fine Arts Model: Amadou Mckeon PhD, Phone: [phone] Josie Almonte PAPER TUBE CUTTER-FRONT OFFICE ASSOCIATE LAB - CHEMISTRY ORDERABLES Performing Organization Address [facility] Co de Phone Number [facility] INSURANCE BILL [address] [place] [address] * PTH INTACT (08/10/2024 10:15 AM CDT) PTH Intact 59 15 - 65 pg/mL [facility] INSURANCE BILL Blood BLOOD SPECIMEN / Unknown 08/10/2024 10:15 AM CDT 08/10/2024 Narrative [facility] INSURANCE BILL - 08/11/2024 11:14 AM CDT Performed at: [address] [place] [id number] Fine Arts Model: Amadou Mckeon PhD, Phone: [phone] Josie Almonte PAPER TUBE CUTTER-FRONT OFFICE ASSOCIATE LAB - CHEMISTRY ORDERABLES Performing Organization Address City/[facility] Co de Phone Number [facility] INSURANCE BILL [address] [place] [address] * (ABNORMAL) BASIC METABOLIC PANEL (CALCIUM TOTAL) [...] 08/11/2024 7:11 AM CDT Performed at: - [facility] [address] [place], [place] [id number] Fine Arts Model: Amadou Mckeon PhD, Phone: [phone] Josie Almonte PAPER TUBE CUTTER-FRONT OFFICE ASSOCIATE LAB - CHEMISTRY ORDERABLES [facility] INSURANCE BILL [address] [place] [address] * URINALYSIS AUTO - POINT OF CARE (AMB) [facility] (07/27/2024 10:56 AM CDT) Only the most recent of6 resultswithin the time period is included. Glucose UA - [facility] [address] Bilirubin UA POCT - [facility] [address] Ketones UA POCT - [facility] [address] Specific [place] UA 1.[address] [facility] [address] Blood [...] 07/27/2024 1 0:56 AM CDT Josie Almonte PAPER TUBE CUTTER-FRONT OFFICE ASSOCIATE LAB - POINT OF CARE ORDERABLES [facility] [address] [address], [facility] [phone] * US RETROPERITONEAL COMPLETE (07/27/2024 10:08 AM [...] DO on 07/27/2024 10:13 AM Josie Almonte PAPER TUBE CUTTER-FRONT OFFICE ASSOCIATE US ORDERABLES * IMMUNOSCORE IGE INTERP (12/04/2023 1:13 PM [facility]) Immunocap Score See Note 6:12 AM [employer] [employer] ([facility]) Comment: REFERENCE INTERVAL: Allergen, Interpretation Less [...] clinical allergy or even anaphylaxis. Performed By: [facility] [address] [place] [address] Technical Marketing Consultant: Onofre Orta MD, PhD CLIA Number: [id number] Blood BLOOD SPECIMEN / Unknown Lab Venipuncture / Unknown 12/04/2023 1:13 PM [facility] 12/04/2023 1:34 PM [facility] [employer] Aaron Bateman MD LAB - SEROLOGY ORDER KALA [employer] [facility]) [address] [place] [address], [facility] * ALLERGEN RESPIRATORY PNL REGION 8 ([place]) (12/04/2023 1:13 PM [facility] [employer] [facility]) [facility] IgE Total <2 <=214 kU/L 12/06/2023 6:03 AM [facility] ([facility]) Comment: REFERENCE INTERVAL: Immunoglobulin E, Serum Access complete set of age- and/or gender-specific reference intervals for this test in the [facility] Test Directory ([employer]). Allergen Metcalf Elder <0.10 <=0.34 kU/L 12/06/2023 6:03 AM [facility] ([facility]) Allergen Alternaria alternata <0.10 <=0.34 kU/L 12/06/2023 6:03 AM [facility] [facility] ([facility]) Allergen Elbow [place] Maple <0.10 <=0.34 kU/L 12/06/2023 6:03 AM [facility] [employer] [facility]) Allergen Cat Dander <0.10 <=0.34 kU/L 12/06/2023 6:03 AM [facility] ([facility]) Allergen Mountain [place] <0.10 <=0.34 kU/L 12/06/2023 6:03 AM [facility] [employer] ([facility]) Allergen Gila Tree <0.10 <=0.34 kU/L 12/06/2023 6:03 AM [facility] [facility] ([facility]) Allergen Rough Pigweed <0.10 <=0.34 kU/L 12/06/2023 6:03 AM [facility] [employer]) Allergen Central African Thistle <0.10 <=0.34 kU/L 12/06/2023 6:03 AM [facility] ([facility]) Allergen Julio Grass <0.10 <=0.34 kU/L 12/06/2023 6:03 AM [facility] [employer]) Allergen Hormodendrum <0.10 <=0.34 kU/L 12/06/2023 6:03 AM [facility] [facility]) Allergen Elm <0.10 <=0.34 kU/L 12/06/2023 6:03 AM [facility] [employer] [facility]) Allergen Jupiter <0.10 <=0.34 kU/L 12/06/2023 6:03 AM [facility] [employer] ([facility]) Allergen A fumigatus IgE <0.10 <=0.34 kU/L 12/06/2023 6:03 AM [facility] [employer] [facility]) Allergen Dermatophagoides pteronyssinus <0.10 <=0.34 kU/L 12/06/2023 6:03 AM [facility]) Allergen Dermatophagoides farinae <0.10 <=0.34 kU/L 12/06/2023 6:03 AM [facility] [employer] [facility] ([facility]) Allergen Bermuda Grass <0.10 <=0.34 kU/L 12/06/2023 6:03 AM [facility]) Allergen White Alexander <0.10 <=0.34 kU/L 12/06/2023 6:03 AM [facility]) Allergen P. Notatum <0.10 <=0.34 kU/L 12/06/2023 6:03 AM [facility]) Allergen Common Ragweed <0.10 <=0.34 kU/L 12/06/2023 6:03 AM [facility]) Allergen Cockroach Chinese <0.10 <=0.34 kU/L 12/06/2023 6:03 AM [facility]) Allergen Provencal Tree <0.10 <=0.34 kU/L 12/06/2023 6:03 AM [facility]) Allergen Sugar Grove Tree <0.10 <=0.34 kU/L 12/06/2023 6:03 AM [facility]) Allergen Pecan Tree <0.10 <=0.34 kU/L 12/06/2023 6:03 AM [facility]) Allergen Mouse Epithelium IgE <0.10 <=0.34 kU/L 12/06/2023 6:03 AM [facility]) Allergen Mucor racemosus <0.10 <=0.34 kU/L 12/06/2023 6:03 AM [facility]) Allergen White Lafayette Tree IgE <0.10 <=0.34 kU/L 12/06/2023 6:03 AM [facility]) Allergen Dog Dander <0.10 <=0.34 kU/L 12/06/2023 6:03 AM [facility]) Comment: Performed By: [facility] [address] [place] [id number] Technical Marketing Consultant: Onofre Orta MD, PhD CLIA Number: [id number] Blood BLOOD SPECIMEN / Unknown Lab Venipuncture / Unknown 12/04/2023 1:13 PM [facility] 12/04/2023 1:34 PM [employer] Aaron Bateman MD LAB - CHEMISTRY KRIS MAC [facility] ([facility]) [address] [place] [id number], [facility] * MN DESTR MALPAM TRUNK,EXTREM 1.1-2 CM (11/11/2023 10:48 AM [facility]) Narrative Paco Foreman MD - 11/11/2023 10:48 AM [employer] Paco Foreman MD 11/11/2023 10:56 AM PROCEDURE: [...] tolerated the procedure well. Chas German MD [facility] Dermatology Resident A procedure was performed. I was present for the entire procedure. I have reviewed the note and edited it as necessary. Date of Service : 11/11/2023 Paco Foreman MD Paco Foreman MD PROCEDURE/MINOR SURG ICAL ORDERABLES * XR CHEST 2VW (10/23/2023 11:17 AM [employer]) Anatomical Region Laterality Modality Chest Radiographic Rossana ging 10/23/2023 11:2 4 AM [employer] Narrative 10/23/2023 2:14 PM [facility] [facility] PROCEDURE: XR CHEST 2VW, DATE/TIME OF EXAM: 10/23/2023 11:17 AM, LOCATION [facility] INDICATION: R05.3: Chronic cough COMPARISON: CT abdomen pelvis 06/23/2023. TECHNIQUE: Frontal and lateral radiograph of the chest. FINDINGS/IMPRESSION: Bibasilar atelectatic changes. There is no focal consolidation, pleural effusion, or pneumothorax. The cardiomediastinal silhouette is normal. The visible bony thorax is intact. Report dictated by Lamine Leiva MD, MD (residential field manager). ISilvestre MD have personally reviewed and interpreted this examination/study. > Interpreting Provider: Silvestre Schwartz MD on 10/23/2023 2:14 PM Procedure Note Silvestre Schwartz MD - 10/23/2023 PROCEDURE: XR CHEST 2VW, DATE/TIME OF EXAM: 10/23/2023 11:17 AM, LOCATION [facility] INDICATION: R05.3: Chronic cough COMPARISON: CT abdomen pelvis 06/23/2023. TECHNIQUE: Frontal and lateral radiograph of the chest. FINDINGS/IMPRESSION: Bibasilar atelectatic changes. There is no focal consolidation, pleural effusion, or pneumothorax. The cardiomediastinal silhouette is normal.The visible bony thorax is intact. Report dictated by Lamine Leiva MD, MD (residential field manager). Silvestre Saldivar MD have personally reviewed and interpreted this examination/study. > Interpreting Provider: Silvestre Schwartz MD on 10/23/2023 2:14 PM [facility] PAPER TUBE CUTTER-FRONT OFFICE ASSOCIATE DIAGNOSTIC I MAGING ORDERABLES * MN MSR PVR U&/BLADD CAPCTY US NON (09/28/2023 11:05 AM [facility] [facility]) Narrative Kaitlin Sacnhez MA - 09/28/2023 11:05 AM [employer] Kaitlin Sanchez MA 09/28/2023 11:05 AM Bladder scan completed. 24ml post void residual. Josie Almonte PAPER TUBE CUTTER-FRONT OFFICE ASSOCIATE PROCEDURE/MINOR SURGICAL ORDERABLES * MN TANGNTL BX [...] is included. Case Report Dermatopathology Report Case: [id number] Authorizing Provider: Robyn Babcock MD Collected: 09/04/2023 09:38 AM Ordering Location: [facility] Received: 09/07/2023 11:48 AM Dermatology Pathologist: Olesya [...] characteristic determined by the Dermatopathology Laboratory at [facility], directed by Dr. Alfa Hawley. These tests need not be, and therefore are not, approved by the [place] Food and Drug Administration. The tests are used for clinical purposes. Billing Codes Specimen Charges Stain Charges 16884 1 3 5:04 PM CDT DERMATOPATHOLOGY LABORATORY Embedded Images 3 5:04 PM CDT DERMATOPATHOLOGY LABORATORY Pathology/Cytolo gy TISSUE SPECIMEN FROM SKIN / Unknown 09/04/2023 9:38 AM CDT 09/07/2023 11:48 AM CDT Aibing Amaris Babcock MD LAB - PATHOLOGY/CYTO LOGY ORDERABLES DERMATOPATHOLOGY LABORATORY [facility] - Department of Dermatology [address], [address] [phone] * URINALYSIS MICROSCOPIC ONLY REFLEXED (06/06/2023 11:58 [...] Resulting Agency Comment Lab Testing performed at: [place] [id number] [facility] [id number] Josie Almonte PAPER TUBE CUTTER-FRONT OFFICE ASSOCIATE LAB - URINALYSI S ORDERABLES Performing Organization Address City/[facility]/ZIP Co de Phone Number [facility] INSURANCE BILL [address] [place] [address] * URINALYSIS W/MICROSCOPIC REFLEX TO CULTURE (06/06/2023 11:58 AM CDT) Only the most recent of2 resultswithin the time period is included. Specific [place] UA 1.020 1.005 - 1.030 [facility] INSURANCE [...] Resulting Agency Comment Lab Testing performed at: [address] [id number] Josie Almonte PAPER TUBE CUTTER-FRONT OFFICE ASSOCIATE LAB - URINALYSI S ORDERABLES Performing Organization Address City/[facility]/ZIP Co de Phone Number [facility] INSURANCE BILL [address] [place] [address] * (ABNORMAL) URINALYSIS W/MICROSCOPIC NO CULTURE (04/17/2023 11:27 AM [facility]) Only the most recent of3 resultswithin the time period is included. Color UA Yellow Straw, Yellow 04/17/2023 12:02 PM [facility] Clarity UA t Cloudy(A) Clear 04/17/2023 12:02 PM [facility] Specific [place] UA 1.016 1.005 - 1.030 04/17/2023 12:02 PM [facility] pH UA 5.0 5.0 - 8.0 pH 04/17/2023 12:02 PM [facility] Protein UA Negative Negative 04/17/2023 12:02 PM [facility] Glucose UA Negative Negative 04/17/2023 12:02 PM [facility] Ketone UA Negative Negative 04/17/2023 12:02 PM [facility] Bilirubin UA Negative Negative 04/17/2023 12:02 PM [facility] Blood UA Negative Negative 04/17/2023 12:02 PM [facility] Nitrite UA Negative Negative 04/17/2023 12:02 PM [facility] Leukocyte Esterase Negative Negative 04/17/2023 12:02 PM [facility] Urobilinogen UA Negative Negative mg/dL 04/17/2023 12:02 PM [facility] RBC UA 0-2 None Seen, 0-2, 3-5 /HPF 04/17/2023 12:02 PM [facility] WBC UA 0-5 None Seen, 0-5 /HPF 04/17/2023 12:02 PM [facility] Squamous Epithelial Cells UA 0-2 None Seen, 0-2, 3-5 /HPF 04/17/2023 12:02 PM [facility] Mucus UA 1+ /LPF 04/17/2023 12:02 PM [facility] Urine MID-STREAM URINE SPECIMEN / Unknown Collection / Unknown 04/17/2023 11:27 AM [facility] 04/17/2023 12:02 PM [facility] - 04/17/2023 12:02 PM CDT [facility] Post PAPER TUBE CUTTER-[facility] LAB - URINAL YSIS ORDERABLES [facility] [address] [place] [address], [facility] [phone] * HEMOGLOBIN A1C - POINT OF CARE (AMB) [facility] (04/17/2023 10:59 AM CDT) Only the most recent of2 resultswithin the time period is included. Pathologist [facility] Hemoglobin A1c POCT 5.7 % [address] BLOOD SPECIMEN / Unknown 04/17/2023 10:59 AM CDT [facility] - POINT OF CARE ORDERABLES Performing Organization Address City/[facility]/ZIP Co de Phone Number [address] [facility] [place] [address], [facility] [phone] * HPV DETECTION HIGH RISK TOM (03/02/2023 10:35 AM CDT) Only the most recent of2 resultswithin the time period is included. Pathologist [facility] High Risk Human Papilloma Result Not detected Not detected 03/06/2023 4:49 PM CDT [facility] High Risk Human Papilloma Interp 03/06/2023 4:49 PM CDT [facility] Comment:High Risk Human Ayden lloma Virus was Not Detected. Pathology/Cytolo gy MISCELLANEOUS SAMPLES / Unknown 03/02/2023 10:35 AM CDT 03/03/2023 11:18 AM CDT Narrative [facility] - 03/06/2023 4:49 PM CDT [...] O RDERABLES [facility] [address] [place] [address], [facility] [phone] * PAP IMAGE-GUIDED W HPV (03/02/2023 10:35 AM CDT) Only the most recent of3 resultswithin the time period is included. Case Report Gynecologic Cytology Report Case: [id number] Authorizing Provider: Titus Kong MD Collected: 03/02/2023 10:35 AM Ordering Location: [facility] Obstetrics Received: 03/03/2023 11:18 AM Gynecology and [...] 6:36 AM CDT [facility] Interpretation PHYSICAL THERAPY DIRECTOR Negative for intraepithelial lesion or malignancy. 03/10/2023 [...] with an additional manual rescreening by a aircraft machinist helper and/or pathologist. 03/10/2023 6:36 AM CDT [facility] Embedded Images 6:36 AM CDT [facility] Pathology/Cytolo gy MISCELLANEOUS SAMPLES / Unknown 03/02/2023 10:35 AM CDT 03/03/2023 11:18 AM CDT Titus Kong MD LAB - PATHOLOGY/CYTO LOGY ORDERABLES [facility] [address] [phone] * RHEUMATOID FACTOR BLOOD QUANTITATIVE (09/13/2022 8:44 AM CDT) Rheumatoid Factor <10.0 <14.0 IU/mL [facility] INSURANCE BILL Comment:FASTING 09/13/2022 8:44 AM CDT 09/13/2022 Narrative Resulting Agency Comment Lab Testing performed at: [facility] [address] [facility] [phone] Razia Coles APRN-FRONT OFFICE ASSOCIATE LAB - CHEMISTRY OR DERABLES [facility] INSURANCE BILL [address] [place] [id number] * VITAMIN D 25-HYDROXY (09/13/2022 8:44 AM CDT) Only the most recent of8 resultswithin the time period is included. Vitamin D, 25 Hydroxy 49.4 30.0 - 100.0 ng/mL [facility] INSURANCE BILL Comment: Vitamin D deficiency has been defined by the [place] of Medicine and an Endocrine Society practice guideline as a level of serum 25-OH vitamin D less than 20 ng/mL (1,2). The Endocrine Society went on to further define vitamin D insufficiency as a level between 21 and 29 ng/mL (2). 1. IOM ([place] of Medicine). 2010. Dietary reference intakes for calcium and D. [place]: The National Academies Press. 2. Peggy MF, Radu VELEZ, Cara MCDONOUGH, et al. Evaluation, treatment, and prevention of vitamin D deficiency: an Endocrine Society clinical practice guideline. JCEM. 2010; 96(7):1911-30. FASTING 09/13/2022 8:44 AM CDT 09/13/2022 Narrative Resulting Agency Comment Lab Testing performed at: [facility] [id number] [facility] [id number] Razia Coles APRN-FRONT OFFICE ASSOCIATE LAB - CHEMISTRY OR DERABLES Performing Organization Address City/[facility]/ZIP Co de Phone Number [facility] INSURANCE BILL [address] [place] [address] * CBC W/O DIFFERENTIAL (09/13/2022 8:44 AM [...] Resulting Agency Comment Lab Testing performed at: [facility] [address] [facility] [phone] Razia Coles APRN-FRONT OFFICE ASSOCIATE LAB - HEMATOLOGY O RDERABLES Performing Organization Address City/[facility]/ZIP Co de Phone Number [facility] INSURANCE BILL [address] [place] [address] * TSH (09/13/2022 8:44 AM CDT) Only the most recent of6 resultswithin the time period is included. TSH 2.330 0.450 - 4.500 uIU/mL [facility] INSURANCE BILL Comment:FASTING 09/13/2022 8:44 AM CDT 09/13/2022 Narrative Resulting Agency Comment Lab Testing performed at: [facility] [address] [facility] [phone] Razia Coles PAPER TUBE CUTTER-FRONT OFFICE ASSOCIATE LAB - CHEMISTRY OR DERABLES [facility] INSURANCE BILL [address] [place] [address] * (ABNORMAL) CULTURE URINE (03/21/2022 3:02 PM CDT) Only the most recent of3 resultswithin the time period is included. Culture Urine >100,000 CFU/mL Escherichia coli(A) DOUGLAS 03/23/2022 8:37 AM CDT [facility] MICRO[facility]OLOG[facility] Culture Urine >100,000 CFU/mL urogenital sandra DOUGLAS 03/23/2022 8:37 AM CDT [facility]CRO[facility] Urine URINE SPECIMEN OBTAINED BY CLEAN [...] alternative cefazolin susceptibility result above. Josie Almonte PAPER TUBE CUTTER-FRONT OFFICE ASSOCIATE LAB - MICROBIOL OGY ORDERABLES [facility] [address] [place], [address] [phone] * MN TANGNTL BX SKIN SINGLE LES (01/17/2022 12:43 PM [facility]) Narrative Robyn Babcock MD - 01/17/2022 12:43 PM [facility] Elmer Foss MD 01/17/2022 12:44 PM Risks, [...] message if not available. Elmer Foss MD [facility] Dermatology Resident, PGY-II Robyn Babcock MD PROCEDURE/MINOR SURG ICAL ORDERABLES * URINALYSIS REFLEX TO MICROSCOPIC NO CULTURE (10/28/2021 9:13 AM [facility]) Only the most recent of9 resultswithin the time period is included. Specific [place] UA 1.020 1.005 - 1.030 [facility] INSURANCE [...] CATCH PROCEDURE / Unknown 10/28/2021 9:13 AM [facility] 10/28/2021 Narrative Resulting Agency Comment Lab Testing performed at: [facility] [address] [facility] [phone] Emilia Hernandez PAPER TUBE CUTTER-FRONT OFFICE ASSOCIATE LAB - URINA LYSIS ORDERABLES [facility] INSURANCE BILL [address]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
--- OUTSIDE RECORDS SUMMARY | 2025-01-24 13:44 | XMS_ITS | Encounter Summary ---
Author Organization [facility] Address [address] [facility] [place] [address] Care Team Providers Care Nurse Staff Industrial Name Role Phone Emilia Hernandez GROUP FITNESS DEPARTMENT HEAD-PARKING ENFORCEMENT TECHNICIAN Primary Care Provi scarlett Edgar Watson MD Primary Care Provider [phone] Emilia Hernandez GROUP FITNESS DEPARTMENT HEAD-PARKING ENFORCEMENT TECHNICIAN Primary Care Provi scarlett Razia Coles GROUP FITNESS DEPARTMENT HEAD-PARKING ENFORCEMENT TECHNICIAN Primary Care Provider [phone] Neftaly Valerio MD Primary Care Provider Reason for Visit * Reason Onset Date Comments Future Appointment 02/09/2020 Encounter Details Date Type Department Care Team (Late st Contact Info) Description 02/09/2020 Telephone [facility] General Internal Medicine [address] [address] Emilia Hernandez, GROUP FITNESS DEPARTMENT HEAD-PARKING ENFORCEMENT TECHNICIAN [address] OF [employer] [place] [phone] Future Appointment Social History Tobacco Use Types [...] population Agreed to move appt Transferred to [facility] documented in this encounter Plan of Treatment Upcoming Encounters Date Type Department Care Team (Late st Contact Info) Description 02/01/2025 1:50 PM CDT Office Visit [facility] - Nephrology [address] [place] [address], [place] [address] Josie Almonte, GROUP FITNESS DEPARTMENT HEAD-PARKING ENFORCEMENT TECHNICIAN [address] [place] [address] DE[place] [address] Roxana Gallardo MD [address] [place] [address] 2L [place] [address] 02/08/2025 10:30 AM CDT Office Visit [facility] - Urology [facility] [address] [place] [address] Josie Almonte, GROUP FITNESS DEPARTMENT HEAD-PARKING ENFORCEMENT TECHNICIAN [address] [place], [place] [address]T [place] [address] 02/15/2025 10:15 AM CDT Office Visit [facility] - Vascular Surgery [address] [place] [address], [place] [address] Margot North MD [address] [place] [address] 2L [place] [address] 03/13/2025 8:50 AM CDT Office Visit [facility] - PUBLIC RELATIONS ASSOCIATE [address] [facility] [address] [place] [phone] Titus Kong MD [address] [place] [address] 03/14/2025 9:00 AM CDT Office Visit [facility] - Ophthalmology [address] [place] [address] 03/16/2025 8:30 AM CDT Office Visit [facility] - Internal Med [address] [place] [phone] Neftaly Valerio MD [address] [place] [address] 04/20/2025 9:00 AM CDT Office Visit [facility] - Internal Med [address] [place] [address] Neftaly Valerio MD [address] [place] [address] 05/04/2025 10:00 AM CDT Office Visit [facility] - Rheumatology [address] [place] [phone] Gala Post APRN-[address] [phone] Kenny Braun MD [address] [place] [address] 2L [place] [address] 06/30/2025 9:40 AM CDT Office Visit [facility] - General Dermatology [address], [address] [place] [phone] Robyn Babcock MD [address] [facility] 3L [place] [address] 12/11/2025 9:00 AM PNEUMATIC TUBE OPERATOR Appointment [place] [address] [facility] [address] [place] [address] documented as of this encounter Visit Diagnoses Not on filedocumented in this encounter Care Teams Nurse Staff Industrial Relationship Specialty Start Date End Date Emilia Hernandez, GROUP FITNESS DEPARTMENT HEAD-PARKING ENFORCEMENT TECHNICIAN PCP - General 04/30/18 06/17/21 Edgar Watson MD [address] [facility] 2L DIV [place] [address] PCP - General 06/18/21 07/16/21 Emilia Hernandez, GROUP FITNESS DEPARTMENT HEAD-PARKING ENFORCEMENT TECHNICIAN [address] [facility] 2L DIV [place] [address] PCP - General 07/17/21 11/12/21 Razia Coles, GROUP FITNESS DEPARTMENT HEAD-PARKING ENFORCEMENT TECHNICIAN [address] [place] [address] PCP - General 11/13/21 12/07/22 Neftaly Valerio MD [address] [place] [address] PCP - General Internal Medicine 07/18/24 documented as of this encounter
--- OUTSIDE RECORDS SUMMARY | 2025-01-24 13:44 | XMS_ITS | Encounter Summary ---
Author Organization [facility] Address [address] [facility] [place] [address] Care Team Providers Care Antisqueak Filler Name Role Phone Emilia Hernandez PATENTS EXAMINER-SCREEN MAKING SUPERVISOR Primary Care Provi scarlett Edgar Watson MD Primary Care Provider [phone] Emilia Hernandez PATENTS EXAMINER-SCREEN MAKING SUPERVISOR Primary Care Provi scarlett Razia Coles PATENTS EXAMINER-SCREEN MAKING SUPERVISOR Primary Care Provider [phone] Neftaly Valerio MD Primary Care Provider [phone] Reason for Visit * Reason Onset Date Comments HEMOPTYSIS 11/25/2018 Encounter Details Date Type Department Care Team (Late st Contact Info) Description 11/25/2018 Telephone [facility] Internal Medicine [address] [address] mEilia Hernandez, PATENTS EXAMINER-SCREEN MAKING SUPERVISOR [address] OF [facility] [place] [phone] HEMOPTYSIS Social History Tobacco Use Types Packs/Day [...] call back. Call back phone number provided. TIONAL REHAB CONSULTANT * Telephone Encounter - Bhavani Leiva RN - 11/25/2018 4:37 PM CST Telephone call from patient to contractor general engineering. Patient notified contractor general engineering that she was coughing up small amounts of blood in her phlegm and also was having L hip pain. This nurse advised contractor general engineering to goahead and schedule the patient for an acute care appointment and that she (the nurse) would call patient back to triage shortly. TIONAL REHAB CONSULTANT documented in this encounter Plan of Treatment Upcoming Encounters Date Type Department Care Team (Late st Contact Info) Description 02/01/2025 1:50 PM CDT Office Visit [facility] - Nephrology [address] [place] [address], [place] [address] Josie Almonte, PATENTS EXAMINER-SCREEN MAKING SUPERVISOR [address] [place] [address] [place] [address] Roxana Gallrado MD [facility]5 [facility] 2L [place] [address] 02/08/2025 10:30 AM CDT Office Visit [facility] - Urology [address] [facility] [address] [place] [address] Josie Almonte, PATENTS EXAMINER-SCREEN MAKING SUPERVISOR [address] [place] [address] [place] [address] 02/15/2025 10:15 AM CDT Office Visit [facility] - Vascular Surgery [address] [place] [phone] Margot North MD [address] [place] [address] 2L [place] [address] 03/13/2025 8:50 AM CDT Office Visit [facility] - VETERINARY SURGERY TECHNICIAN [address] [facility] [address] [place] [address] Titus Kong MD [address] [place] [address] 03/14/2025 9:00 AM CDT Office Visit [facility] - Ophthalmology [address] [place] [phone] 03/16/2025 8:30 AM CDT Office Visit [facility] - Internal Med [address] [place] [phone] Neftaly Valerio MD [address] [place] [address] 04/20/2025 9:00 AM CDT Office Visit [facility] - Internal Med [address] [place] [address] Neftaly Valerio MD [address] [place] [address] 05/04/2025 10:00 AM CDT Office Visit [facility] - Rheumatology [address] [facility], [place] [phone] Gala Post APRN-CNP [address] [address] Kenny Braun MD [facility]5 [facility] 2L [place] [address] 06/30/2025 9:40 AM CDT Office Visit [facility] - General Dermatology [address], [facility] 200 [place] [address] Robyn Babcock MD [address] [place] [address] 3L [place] [address] 12/11/2025 9:00 AM VOCATIONAL REHAB CONSULTANT Appointment [address] [place] [address] documented as of this encounter Visit Diagnoses Not on filedocumented in this encounter Care Teams Antisqueak Filler Relationship Specialty Start Date End Date Emilia Hernandez APRN-SCREEN MAKING SUPERVISOR PCP - General 04/30/18 06/17/21 Edgar Watson MD [address] [place] [address] 2L [place] [address] PCP - General 06/18/21 07/16/21 Emilia Hernandez APRN-SCREEN MAKING SUPERVISOR [address] [place] [address] 2L [place] [address] PCP - General 07/17/21 11/12/21 Razia Coles PATENTS EXAMINER-SCREEN MAKING SUPERVISOR [address] [place] [phone] PCP - General 11/13/21 12/07/22 Neftaly Valerio MD [address] [place] [address] PCP - General Internal Medicine 07/18/24 documented as of this encounter
--- OUTSIDE RECORDS SUMMARY | 2025-01-24 13:44 | XMS_ITS | Encounter Summary ---
Author Organization [facility] Address [address] [facility] [place] [address] Care Team Providers Care Country Singer Name Role Phone Emilia Hernandez EDITOR MANAGING DIRECTOR-SEWING TEACHER Primary Care Provi scarlett Edgar Watson MD Primary Care Provider Emilia Hernandez EDITOR MANAGING DIRECTOR-SEWING TEACHER Primary Care Provi scarlett Razia Coles EDITOR MANAGING DIRECTOR-SEWING TEACHER Primary Care Provider [phone] Neftaly Valerio MD Primary Care Provider [phone] Encounter Details Date Type Department Care Team (Late st Contact Info) Description 12/01/2018 Telephone [facility] Urology [address] [place] [address] Luis Daniel Paz MD [address] [place] [address] Social History Tobacco Use Types Packs/Day Years [...] Answered all questions. Info mailed to home NSED ELECTRICIAN documented in this encounter Plan of Treatment Upcoming Encounters Date Type Department Care Team (Late st Contact Info) Description 02/01/2025 1:50 PM CDT Office Visit [facility] - Nephrology [address] [place] [address] [place] [phone] Josie Almonte, EDITOR MANAGING DIRECTOR-SEWING TEACHER [address] [place] [address] DE[place] [address] Roxana Gallardo MD [address] [place] [address] 2L [place] [address] 02/08/2025 10:30 AM CDT Office Visit [facility] - Urology [address] [place] [address] [address] [place] [address] Josie Almonte, EDITOR MANAGING DIRECTOR-SEWING TEACHER [address] [place] [address] DE[place] [address] 02/15/2025 10:15 AM CDT Office Visit [facility] - Vascular Surgery [address] [place] [address], [place] [address] Margot North MD [address] [place] [address] 2L [place] [address] 03/13/2025 8:50 AM CDT Office Visit [facility] - WELDING INSTRUCTOR 10[address] [facility] [address] [place] [address] Titus Kong MD [address] [place] [address] 03/14/2025 9:00 AM CDT Office Visit [facility] - Ophthalmology [address] [place] [phone] 03/16/2025 8:30 AM CDT Office Visit [facility] - Internal Med [address] [place] [address] Neftaly Valerio MD [address] [place] [address] 04/20/2025 9:00 AM CDT Office Visit [facility] - Internal Med [address] [place] [address] Neftaly Valerio MD [address] [place] [address] 05/04/2025 10:00 AM CDT Office Visit [facility] - Rheumatology [address] [place] [address] Gala Post APRN-[address] [phone] Kenny Braun MD [address] [place] [address] [place] [address] 06/30/2025 9:40 AM CDT Office Visit [facility] - General Dermatology [address], [facility] 200 [place] [address] Robyn Babcock MD [address] 3L [place] [address] 12/11/2025 9:00 AM LICENSED ELECTRICIAN Appointment [facility] Breast Care [address] [facility] [address] [place] [address] documented as of this encounter Visit Diagnoses Not on filedocumented in this encounter Care Teams Country Singer Relationship Specialty Start Date End Date Emilia Hernandez, EDITOR MANAGING DIRECTOR-SEWING TEACHER PCP - General 04/30/18 06/17/21 Edgar Watson MD [address] 2L DIV [place] [address] PCP - General 06/18/21 07/16/21 Emilia Hernandez, EDITOR MANAGING DIRECTOR-SEWING TEACHER [address] [facility] [address] 2L DIV [place] [address] PCP - General 07/17/21 11/12/21 Razia Coles, EDITOR MANAGING DIRECTOR-SEWING TEACHER [address] [place] [address] PCP - General 11/13/21 12/07/22 Neftaly Valerio MD [address] [place] [address] PCP - General Internal Medicine 07/18/24 documented as of this encounter
--- OUTSIDE RECORDS SUMMARY | 2025-01-24 13:45 | XMS_ITS | Encounter Summary ---
Author Organization [facility] Address [address] [facility] [place] [address] Care Team Providers Care [employer]ementer [employer] Name Role Phone Neftaly Valerio MD Primary Care Provider [phone] Encounter Details Date Type Department Care Team [...] Office Visit [facility] - Nephrology [facility] [place] [phone] Josie Almonte, ENGINEERING OFFICER-EQUITY DIRECTOR [address] [facility] DEPT [place] [address] Roxana Gallardo MD 12[address] [facility] 2L [place] [address] 02/08/2025 10:30 AM CDT Office Visit [facility] - Urology [address] [place] [address] Josie Almonte, ENGINEERING OFFICER-EQUITY DIRECTOR [address] [facility] [place] [address] 02/15/2025 10:15 AM CDT Office Visit [facility] - Vascular Surgery [address] [place] [phone] Margot North MD [facility]5 [facility] 2L DIV [place] [address] 03/13/2025 8:50 AM CDT Office Visit [facility] - PIPELINE MAINTENANCE SUPERVISOR [address] [facility] [address] [place] [address] Titus Kong MD [address] [place] [address] 03/14/2025 9:00 AM CDT Office Visit [facility] - Ophthalmology [address] [place] [address], [place] [address] 03/16/2025 8:30 AM CDT Office Visit [facility] - Internal Med [address] [place] [phone] Neftaly Valerio MD [address] [place] [address] 04/20/2025 9:00 AM CDT [facility] Med 1225 [facility], [place] [phone] Neftaly Valerio MD [address] [place] [address] 05/04/2025 10:00 AM CDT Office Visit [facility] - Rheumatology [address] [place] [address], [place] [phone] PersonGala, ENGINEERING OFFICER-EQUITY DIRECTOR [address] [place] [address] [phone] Kenny Braun MD [address] [place] [address] 2L [place] [phone] 06/30/2025 9:40 AM CDT Office Visit [facility] - General Dermatology [address], [facility] 200 [place] [phone] Robyn Babcock MD [address] [place] [address] 3L [place] [address] 12/11/2025 9:00 AM NATUROPATHIC PHYSICIAN Appointment [facility] Breast Care [address] [facility] [address] [place] [address] documented as of this encounter Visit Diagnoses Not on filedocumented in this encounter Care Teams [employer] Relationship Specialty Start Date End Date Neftaly Valerio MD [address] [place] [address] PCP - General Internal Medicine 07/18/24 documented as of this encounter
--- OUTSIDE RECORDS SUMMARY | 2025-01-24 13:45 | XMS_ITS ---
Author Organization [facility] Address [address] [facility] [place] [address] Care Team Providers Care Customer Account Technician Name Role Phone Neftaly Valerio MD Primary Care Provider [phone] Active Problems Patient Care Coordination No te [...] 12/13/2024 Assessment & Plan (12/13/2024 1:51 PM TIP CEMENTER): - NSAIDs and tylenol as needed - Ref to physical therapy - Discussed that is likely at least somewhat contributed to by obesity, weight loss will often be helpful Prediabetes 12/13/2024 Assessment & Plan (12/13/2024 1:53 PM TIP CEMENTER): - Weight related complication - Check A1c - continue lifestyle changes to diet and exercise as able - Recommend GLP-1 see obesity section Preventative health care 12/13/2024 Assessment & Plan (12/13/2024 1:55 PM TIP CEMENTER): The 10-year ASCVD risk score (Alena LENTZ, [...] 07/29/2024 Assessment & Plan (12/13/2024 1:58 PM TIP CEMENTER): - Following with vascular surgery Chronic venous stasis dermatitis of both lower e xtremities 07/29/2024 Urgency incontinence 05/02/2022 Multiple benign nevi of uppe r and lower extremities, and trunk 04/12/2019 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 Treatments may have been administered in another system. Lifetime Dose Tracking * Chemical Lifetime Dose Automatic Entry Manual Entr y Dose Length Product 1,555 mGy-cm 1,555 mGy-cm 0 mGy-cm Resolved Problems Problem Noted Date Diagnosed Date Resolved Date Cellulitis of left lower extremity 07/29/2024 12/13/2024 Rash 10/27/2019 11/24/2019 Assessment & Plan (10/27/2019 10:23 AM TIP CEMENTER): Based on appearance, consist with drug rash. Patient denies any new medications. Would not expect reaction of this severity from Bactrim after tolerating previously for 7 days. Based on exam, ok to stop Bactrim--would is healing well. Zyrtec 20mg daily for 3 days then 10mg daily Stop new soap Cellulitis of right lower extremity 10/27/2019 12/13/2024 Assessment & Plan (10/27/2019 10:24 AM TIP CEMENTER): Appears to be healing--ok to stop antibiotics [...]
--- OUTSIDE RECORDS SUMMARY | 2025-01-24 13:45 | XMS_ITS | Clinical Summary ---
Author Organization [facility] [email or web address] Address [address] [place] [address] Care Team Providers Care Product Technology Scientist Name Role Phone Neftaly Valerio MD Primary Care Provider [phone] Source Comments [facility] [email or web address],non-owned Affiliates and Associated Physician Practices is amultiple site organization consisting of ambulatory clinics and hospital sitesin [place], [place], [place] and [place]. This disclosure is being madepursuant to the Care Everywhere program and may not contain all information available regarding this patient. Last updated 18.[facility] [email or web address] Allergies Active Allergy Reactions Criticality Noted Date Comments Sulfa Drugs Rash Medium 11/22/2019 Medications * Be aware that medications may not be up to date on this document. Alwaysverify current medications with the patient. Medication Sig Dispensed Refills Start Date End Date Status [facility] 1 device once daily as needed [...] Active vitamin D, ergocalciferol, (Drisdol) 1.25 MG (11802 UT) capsuleIndication s:Vitamin D deficiency Take 1 [...] 12/13/2024 Assessment & Plan (12/13/2024 1:51 PM GEODETIC TECHNICIAN): - NSAIDs and tylenol as needed - Ref to physical therapy - Discussed that is likely at least somewhat contributed to by obesity, weight loss will often be helpful Prediabetes 12/13/2024 Assessment & Plan (12/13/2024 1:53 PM GEODETIC TECHNICIAN): - Weight related complication - Check A1c - continue lifestyle changes to diet and exercise as able - Recommend GLP-1 see obesity section Preventative health care 12/13/2024 Assessment & Plan (12/13/2024 1:55 PM GEODETIC TECHNICIAN): The 10-year ASCVD risk score (Alena LENTZ, [...] 07/29/2024 Assessment & Plan (12/13/2024 1:58 PM GEODETIC TECHNICIAN): - Following with vascular surgery Chronic venous stasis dermatitis of both lower e xtremities 07/29/2024 Urgency incontinence 05/02/2022 Multiple benign nevi of uppe r and lower extremities, and trunk 04/12/2019 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 Patient denies any new medications. Would not expect reaction of this severity from Bactrim after tolerating previously for 7 days. Based on exam, ok to stop Bactrim--would is healing well. Zyrtec 20mg daily for 3 days then 10mg daily Stop new soap Cellulitis of right lower extremity 10/27/2019 12/13/2024 Assessment & Plan (10/27/2019 10:24 AM GEODETIC TECHNICIAN): Appears to be healing--ok to stop antibiotics [...] Care Team Description 01/23/2025 Travel 01/22/2025 Telephone [facility] Physician [facility] - Internal Med [address] [place] [phone] Melo Orr MD Advice Only; Cellulitis 01/02/2025 Travel 12/26/2024 Telephone [facility] Physician [facility] - Internal Med [address] [place] [phone] Neftaly Valerio MD Screening Colonoscopy 12/15/2024 Orders Only [facility] Physician [facility] - Internal Med [address] [place] [phone] Neftaly Valerio MD Class 2 severe obesity due to excess calories with serious comorbidity and body mass index (BMI) of 39.0 to 39.9 in adult (HCC) ; Prediabetes 12/12/2024 Telephone [facility] Physician [facility] - Internal [address] [phone] Neftaly Valerio MD LABS ONLY 12/12/2024 Telephone [facility] Physician [facility] - Internal Med [address] [place] [phone] Neftaly Valerio MD Medication Prior Auth Request 12/08/2024 10:00 AM GEODETIC TECHNICIAN Office Visit [facility] Physician [facility] - Internal Med [address] [place] [phone] Neftaly Valerio MD Morbid obesity (HCC) (Primary Dx); Lipid screening; Left sciatic nerve pain; Prediabetes; Essential hypertension; Venous insufficiency of both lower extremities 12/08/2024 Travel 12/06/2024 Travel 12/05/2024 9:00 AM GEODETIC TECHNICIAN - 12/05/2024 11:59 PM GEODETIC TECHNICIAN Hospital Encounter [address] [place] [phone] Neftaly Valerio MD Discharge Disposition: Home or [...] Comments Blood Pressure 122/65 12/08/2024 10:01 AM GEODETIC TECHNICIAN Pulse 72 12/08/2024 10:01 AM GEODETIC TECHNICIAN Temperature 36.7 C (98.1 F) 12/08/2024 10:01 AM GEODETIC TECHNICIAN Respiratory Rate 18 09/28/2024 9:40 AM GEODETIC TECHNICIAN Oxygen Saturation 99% 12/08/2024 10:01 AM GEODETIC TECHNICIAN Inhaled Oxygen Concentration - - Weight 103.4 kg (228 lb) 12/08/2024 10:01 AM GEODETIC TECHNICIAN Height 162.6 cm (5' 4 ) 12/08/2024 10:01 AM GEODETIC TECHNICIAN Body Mass Index 39.14 12/08/2024 10:01 AM GEODETIC TECHNICIAN Plan of Treatment Upcoming Encounters Date Type Department Care Team (Late st Contact Info) Description 02/01/2025 1:50 PM CDT [facility] Ne[facility] [address] [place] [address], [facility] [place] [phone] Josie Almonte, HORIZONTAL BORING MILL SET UP OPERATOR-MANAGER NET [address] [place] [address] DE[place] [address] Roxana Gallardo MD [address] [place] [address] 2L [place] [address] 02/08/2025 10:30 AM CDT Office Visit [facility] - Urology [address] [place] [address] [address] [place] [address] Josie Almonte, HORIZONTAL BORING MILL SET UP OPERATOR-MANAGER NET [address] [place] [address] DEPT [place] [address] 02/15/2025 10:15 AM CDT Office Visit [facility] - Vascular Surgery [address] [place] [phone] Margot North MD [address] [place] [address] 2L [place] [address] 03/13/2025 8:50 AM CDT Office Visit [facility] - DRUM DYEING MACHINE OPERATOR [address] [place] [phone] Titus Kong MD [address] [place] [address] 03/14/2025 9:00 AM CDT Office Visit [facility] - Ophthalmology [address] [place] [phone] 03/16/2025 8:30 AM CDT Office Visit [facility] - Internal Med [address] [place] [phone] Neftaly Valerio MD [facility] [place] [address] 04/20/2025 9:00 AM CDT Office Visit [facility] - Internal Med [address] [place] [phone] Neftaly Valerio MD [facility] [place] [address] 05/04/2025 10:00 AM CDT Office Visit [facility] - Rheumatology [address] [place] [phone] Gala Post, HORIZONTAL BORING MILL SET UP OPERATOR-MANAGER NET [address] [phone] Kenny Braun MD [address] 2L [place] [phone] 06/30/2025 9:40 AM CDT Office Visit [facility] - General Dermatology [address] [place] [address] Robyn Babcock MD [address] [place] [address] 12/11/2025 9:00 AM GEODETIC TECHNICIAN Appointment [facility] [address] [place] [address] Health Maintenance Due Date Last Done Comments [...] this topic Medical Devices Implanted Type Area Assistant Curator Device Identifier Shelf Expiration Date Model / Serial / Lot Stent Uret 6fr 22cm Pgtl Crv Tpr Tip Implanted:Qty: 1 on 11/27/2018 by Luis Daniel Paz MD at [facility] Left: [employer] Scimed 08/19/2021 [id number] / / [id number] Procedures Procedure Name Priority Date/Time Associated Diagnosis Comments HEMOGLOBIN A1C Routine 12/09/2024 12:00 PM GEODETIC TECHNICIAN Morbid obesity (HCC) Prediabetes Essential hypertension LIPID PROFILE Routine 12/09/2024 12:00 PM GEODETIC TECHNICIAN Lipid screening CBC W AUTO DIFFERENTIAL Routine 12/09/2024 12:00 PM GEODETIC TECHNICIAN Morbid obesity (HCC) Essential hypertension COMPREHENSIVE METABOLIC PANEL Routine 12/09/2024 12:00 PM GEODETIC TECHNICIAN Morbid obesity (HCC) Essential hypertension MAMMO BILAT SCREENING W JAVAN Routine 12/05/2024 10:21 AM GEODETIC TECHNICIAN Visit for screening mammogram HEPATITIS C AB SCREEN RFLX NAAT QUANT STAT 11/26/2018 2:10 PM GEODETIC TECHNICIAN DEXA BONE DENSITY AXIAL SKELETON Routine 01/04/2014 9:48 AM GEODETIC TECHNICIAN from Last 3 Months or Most Recently Relevant to Health Maintenance Results * (ABNORMAL) HEMOGLOBIN A1C (12/09/2024 12:00 PM GEODETIC TECHNICIAN) [facility] Hemoglobin A1c 5.8(H) 4.8 - 5.6 % [facility] INSURANCE BILL Comment: Prediabetes: 5.7 - 6.4 Diabetes: >6.4 Glycemic control for adults with diabetes: <7.0 Blood BLOOD SPECIMEN / Unknown 12/09/2024 12:00 PM GEODETIC TECHNICIAN 12/09/2024 Narrative [facility] INSURANCE BILL - 12/10/2024 9:09 AM GEODETIC TECHNICIAN Performed at: 01 - [address] [id number] Welt Stitcher: Amadou Mckeon PhD, Phone: [phone] Neftaly Valerio MD LAB - CHEMISTRY KRIS MAC [facility] INSURANCE BILL [address] [place] [address] * CBC WITH DIFFERENTIAL (12/09/2024 12:00 PM GEODETIC TECHNICIAN) [facility] WBC 8.9 3.4 - 10.8 x10E3/uL [...] BLOOD SPECIMEN / Unknown 12/09/2024 12:00 PM GEODETIC TECHNICIAN 12/09/2024 Narrative [facility] INSURANCE BILL - 12/10/2024 9:09 AM GEODETIC TECHNICIAN Performed at: [address] [id number] [employer] Stitcher: Amadou Mckeon PhD, Phone: [phone] Neftaly Valerio MD LAB - HEMATOLOGY ORD ERABLES [facility] INSURANCE BILL [address] [place] [address] * (ABNORMAL) COMPREHENSIVE METABOLIC PANEL (12/09/2024 12:00 PM GEODETIC TECHNICIAN) Glucose 121(H) 70 - 99 mg/dL [facility] [...] BLOOD SPECIMEN / Unknown 12/09/2024 12:00 PM GEODETIC TECHNICIAN 12/09/2024 Narrative [facility] INSURANCE BILL - 12/11/2024 7:07 AM GEODETIC TECHNICIAN Performed at: [address] [id number] [employer] Stitcher: Amadou Mckeon PhD, Phone: [phone] Neftaly Valerio MD [facility] Organization Address City/State/ZIP Co de Phone Number [facility] INSURANCE BILL [address] [place] [address] * (ABNORMAL) LIPID PROFILE (12/09/2024 12:00 PM GEODETIC TECHNICIAN) [facility] Signature Cholesterol 201(H) 100 - 199 mg/dL [facility] INSURANCE BILL Triglycerides 388(H) 0 - 149 mg/dL [facility] INSURANCE BILL HDL Cholesterol 50 >39 mg/dL [facility] INSURANCE BILL VLDL Calculated 63(H) 5 - 40 mg/dL [facility] INSURANCE BILL LDL Calculated 88 0 - 99 mg/dL [facility] INSURANCE BILL Blood BLOOD SPECIMEN / Unknown 12/09/2024 12:00 PM GEODETIC TECHNICIAN 12/09/2024 Narrative [facility] INSURANCE BILL - 12/10/2024 3:07 PM GEODETIC TECHNICIAN Performed at: [address] [id number] [place] Stitcher: Amadou Mckeon PhD, Phone: [phone] Neftaly Valerio MD LAB - CHEMISTRY ORDE RABLES [facility] INSURANCE BILL [address] [place] [address] * Mammo Bilat Screening W Javan (12/05/2024 10:21 AM GEODETIC TECHNICIAN) Anatomical Region Laterality Modality Breast Bilateral Mammography 12/05/2024 2:10 PM GEODETIC TECHNICIAN Impressions 12/05/2024 2:18 PM GEODETIC TECHNICIAN IMPRESSION: No mammographic evidence of malignancy in either breast. ASSESSMENT: BIRADS Category 1: Negative mammogram. RECOMMENDATION: Bilateral screening mammogram in one year. Thank you for allowing us to participate in the care of your patient. [facility] utilizes Marqui as a reminder system to notify patients of their next recommended mammogram. > Interpreting Provider: Vanessa Vazquez MD on 12/05/2024 2:18 PM Narrative 12/05/2024 2:18 PM GEODETIC TECHNICIAN EXAMINATION: Digital screening mammogram. Low-dose full-field digital [...] SCREEN RFLX NAAT QUANT (11/26/2018 2:10 PM GEODETIC TECHNICIAN) Hepatitis C Antibody Non-react muna Non-reac tive 11/26/2018 2:57 PM GEODETIC TECHNICIAN [facility] Comment: Hepatitis C [...] Unknown Venipuncture / Unknown 11/26/2018 2:10 PM GEODETIC TECHNICIAN 11/26/2018 2:15 PM GEODETIC TECHNICIAN Joycelyn Mann HORIZONTAL BORING MILL SET UP OPERATOR-MANAGER NET LAB - CHEMISTRY ORDERABLES [address] [phone] * DEXA BONE DENSITY AXIAL SKELETON (01/04/2014 9:48 AM GEODETIC TECHNICIAN) Anatomical Region Laterality Modality Other Narrative 01/04/2014 3:43 PM GEODETIC TECHNICIAN Examination: Dual energy x-ray absorptiometry of the lumbar spine and hip. Clinical Indication: Postmenopausal, fracture right foot. Findings: Detailed data from the exam is sent separately to the ordering physician and is also available on [employer], the Radiology Department's computerized picture archive system [...] the orderingphysician and is also available on [employer], the Radiology Department'[employer] picture archive system SUMMARY: No prior study [...] D.O. on 01/04/20143:43 PM . Emilia Hernandez HORIZONTAL BORING MILL SET UP OPERATOR-MANAGER NET DEXA ORDERA BLES from Last 3 Months or Most Recently Relevant to Health Maintenance Advance Directives * Full Code (Latest Code Status on File) Date Activated Date Inactivated Comments 11/26/2018 5:01 PM 11/27/2018 5:02 PM Care Teams Product Technology Scientist Relationship Specialty Start Date End Date Neftaly Valerio MD [address] [place] [address] PCP - General Internal Medicine 07/18/24
--- OUTSIDE RECORDS SUMMARY | 2025-01-24 13:45 | XMS_ITS | Encounter Summary ---
Author Organization [facility] Address [address] [place] [address] Care Team Providers Care Field Application Engineer Name Role Phone Neftaly Valerio MD Primary Care Provider [phone] Reason for Visit * Reason Onset Date Comments Advice Only 01/22/2025 Cellulitis 01/22/2025 Encounter Details Date Type Department Care Team (Late st Contact Info) Description 01/22/2025 Telephone [facility] - Internal Med [address] [facility] [place] [address] Melo Orr MD [address] [place] [address] Advice Only; Cellulitis Social History [...] Michel this morning. She is going to [facility] in [facility] ER at this time. States she has [...] appropriate and will give pcp the message. ER HEEL AND SOLE PRESS TENDER * Telephone Encounter - Bev Martinez RN - 01/23/2025 9:42 AM RUBBER HEEL AND SOLE PRESS TENDER Pt called to schedule an urgent care f/u. Scheduled 01/24 acute appt with Mattie Michel for eval. ER HEEL AND SOLE PRESS TENDER * Telephone Encounter - Melo Orr MD [...] evaluated given worsening cellulitis. Melo Orr MD ER HEEL AND SOLE PRESS TENDER documented in this encounter Plan of Treatment Upcoming Encounters Date Type Department Care Team (Late st Contact Info) Description 02/01/2025 1:50 PM CDT Office Visit [facility] - Nephrology [address] [place] [address], [place] [phone] Josie Almonte, PACS ADMINISTRATOR-ELECTRIC TRIPPER MACHINE OPERATOR [address] [place], [place] [address]T OF [place] [address] Roxana Gallardo MD [address] [place] [address] DIV [place] [address] 02/08/2025 10:30 AM CDT Office Visit [facility] - Urology [address] [facility] [facility] [address] [place] [address] Josie Almonte, PACS ADMINISTRATOR-ELECTRIC TRIPPER MACHINE OPERATOR [address] [place], [place] [address]T OF [place]OLOGICAL [place] [address] 02/15/2025 10:15 AM CDT Office Visit [facility] - Vascular Surgery [address] [place] [address], [place] [address] Margot North MD [address] [place] [address] 2L DIV OF [place]ASC[place] [phone] 03/13/2025 8:50 AM CDT Office Visit [facility] - STRIP WINDER [address] [facility] [address] [place] [phone] Titus Kong MD [address] [place] [address] 03/14/2025 9:00 AM CDT Office Visit [facility] - Ophthalmology [address] [place] [phone] 03/16/2025 8:30 AM CDT Office Visit [facility] - Internal Med [address] [place] [phone] Neftaly Valerio MD [address] [place] [address] 04/20/2025 9:00 AM CDT Office Visit [facility] - Internal Med [address] [place] [phone] Neftaly Valerio MD [address] [place] [address] 05/04/2025 10:00 AM CDT Office Visit [facility] - Rheumatology [address] [place] [phone] Gala Post, PACS ADMINISTRATOR-[facility] [phone] Kenny Braun MD [address] [place] [address] 2L [place] [address] 06/30/2025 9:40 AM CDT Office Visit [facility] - General Dermatology [address] [place] [address] Robyn Babcock MD [address] [facility] 3L [place] [address] 12/11/2025 9:00 AM RUBBER HEEL AND SOLE PRESS TENDER Appointment [facility] [address] [facility] [address] [place] [address] documented as of this encounter Visit Diagnoses Not on filedocumented in this encounter Care Teams Field Application Engineer Relationship Specialty Start Date End Date Neftaly Valerio MD [address] [place] [address] PCP - General Internal Medicine 07/18/24 documented as of this encounter
[2025-01-24 13:46] LABS: CRP 17.2 mg/dL (<1.0)
[2025-01-24 13:56] LABS: Magnesium 1.9 mg/dL (1.6-2.3)
[2025-01-24] MEDS: METOPROLOL TARTRATE INJ 5 MG/5 ML VIAL IV PUSH (14:12)
[2025-01-24] MEDS: POTASSIUM CHLORIDE 20 MEQ ER TABLET 40 MEQ PO (14:19)
--- NOTE | 2025-01-24 14:20 | PC.NURSE ---
EDP Beth Schwab gave VORB that pt is able to take her home antibiotic, 500mg cephalexin
[2025-01-24] MEDS: METOPROLOL TARTRATE 25 MG TABLET PO (14:35)
--- NOTE | 2025-01-24 14:57 | P.HP_ITS ---
H&P: HPI History of Present Illness Date/Time: 01/24/25 14:57 Chief Complaint: Cellulitis Atrial fibrillation with RVR Narrative: This is a 69-year-old female with a significant past medical history of hypertension, hyperlipidemia, kidney stones, arthritis, cellulitis presented to the hospital with complaints of cellulitis to the left lower extremity. She was recently started Keflex however she fell that this was not working and presented for further evaluation. While in the ED she was found to be in A Fib RVR with a rate of 166, QTC 423. Workup in the hospital included a chest x-ray showed bilateral interstitial changes which may indicate fibrotic changes versus pneumonitis. Chest CTA was negative for PE, showed bilateral basilar atelectasis, left atrial enlargement. Initial labs showed a white blood cell count of 14.0, INR 1.1, D-dimer 1.59, sodium 135, potassium 3.2, anion gap 14, creatinine 1.47, EGFR 35, blood sugar 183, alkaline phosphate 129, C reactive protein 17.2, proBNP 2310. Patient was given 1.5 L of normal saline, Cardizem bolus and drip, 40 mEq of potassium, 25 mg of p.o. metoprolol, 5 mg IV push metoprolol and Ancef while in the ED. Cardiology was consulted. Review of Systems Review of Systems: All systems reviewed & are unremarkable except as noted in HPI and below PMFSH Past Medical History Medical History Kidney stone Arthritis History of hyperlipidemia Cellulitis of right leg Hypertension Surgical History Surgical History History of bunionectomy Family History Family History Mother Acute myocardial infarction Hypertension Father Renal failure Social History Social History Smoking status: Never smoker Second hand tobacco smoke exposure: No Alcohol intake: former Substance use: never Do You Feel Safe in your Home?: Yes Lack of Transportation: No Lack of Food: Never True Current Housing: I Have Housing Concerned About Future Housing: No Difficulty Paying Gas/Electric Bills: No Difficulty Paying for Meds: No Currently Unemployed: No Education: Associate Degree Difficulty w/ Childcare or Family Care: No Gender identity (if verbalized by the patient): Female Spiritual care concerns: No Meds Home Medications and Allergies Home Medications ?Medication ?Instructions ?Recorded ?Confirmed ?Type atorvastatin 20 mg tablet 20 mg PO DAILY 11/26/23 01/24/25 History ergocalciferol (vitamin D2) 1,250 1,250 mcg PO WEEKLY 11/26/23 01/24/25 History mcg (50,000 unit) capsule hydrochlorothiazide 25 mg tablet 25 mg PO DAILY 11/26/23 01/24/25 History metoprolol succinate 50 mg 50 mg PO DAILY 11/26/23 01/24/25 History tablet,extended release 24 hr trandolapril 2 mg tablet 2 mg PO DAILY 11/26/23 01/24/25 History cephalexin 500 mg capsule 500 mg PO TID 01/24/25 01/24/25 History Allergies Allergy/AdvReac Type Severity Reaction Status Date / Time doxycycline Allergy Unknown Unknown Verified 01/24/25 11:48 Sulfa (Sulfonamide Allergy Unknown Verified 01/24/25 11:48 Antibiotics) sulfamethoxazole (From Allergy Rash Verified 01/24/25 11:48 Bactrim) trimethoprim (From Bactrim) Allergy Rash Verified 01/24/25 11:48 Vital Signs Vital Signs - 24 hr 01/24/25 11:12 01/24/25 11:34 01/24/25 11:43 Temperature 97.7 F Pulse Rate 166 H 183 H 152 H Respiratory Rate 21 H 17 Blood Pressure 112/56 L 87/70 L Pulse Oximetry 96 96 Oxygen Delivery Room Air Oxygen Flow Rate 01/24/25 11:43 01/24/25 11:49 01/24/25 11:52 Temperature Pulse Rate 152 H 147 H Respiratory Rate 28 H 20 Blood Pressure 102/51 L 105/68 Pulse Oximetry 95 95 95 Oxygen Delivery Room Air Oxygen Flow Rate 01/24/25 12:06 01/24/25 12:18 01/24/25 12:20 Temperature Pulse Rate 142 H 146 H 149 H Respiratory Rate 23 H 20 Blood Pressure 96/65 L 113/72 113/72 Pulse Oximetry 96 95 Oxygen Delivery Oxygen Flow Rate 01/24/25 12:56 01/24/25 12:56 01/24/25 13:09 Temperature Pulse Rate 154 H 156 H Respiratory Rate 20 Blood Pressure 128/74 128/74 Pulse Oximetry 94 96 Oxygen Delivery Nasal Cannula Oxygen Flow Rate 2 01/24/25 13:13 01/24/25 14:03 01/24/25 14:07 Temperature Pulse Rate 154 H 152 H 152 H Respiratory Rate 19 21 H Blood Pressure 96/64 L 100/72 100/72 Pulse Oximetry 96 97 Oxygen Delivery Oxygen Flow Rate 01/24/25 14:12 01/24/25 14:22 01/24/25 14:35 Temperature Pulse Rate 148 H 141 H 139 H Respiratory Rate 18 Blood Pressure 114/74 Pulse Oximetry 96 Oxygen Delivery Oxygen Flow Rate Exam Narrative: General: In no acute distress, well nourished Head: atraumatic, no encephalopathy Eyes: PERRLA, sclera clear ENT: moist mucous membranes, nasal passages clear Neck: supple, no JVD, no adenopathy, trachea midline Cardiac: Normal S1 and S2. Afib RVR on monitor No murmur, gallops or friction rubs, peripheral pulses intact. Respiratory: Lungs clear to auscultation, no adventitious lung sounds, currently on 2L NC Gastrointestinal: soft, non-distended, non-tender, normoactive bowel sounds. : voiding without difficulty. Extremities: moves all extremities well, mild ankle edema Skin: clean, dry, intact. No wounds or lesions. Neuro: Alert and oriented x4, cranial nerves intact, no neuro deficits. Psych: normal mood, normal affect, interactive H&P: Results Labs Labs: Short CBC 01/24/25 Range/Units 11:28 WBC 14.0 H (4.5-10.0) K/mm3 Hgb 13.3 (12.0-15.0) g/dL Hct 39.1 (37.0-47.0) % Plt Count 308 (150-375) k/mm3 BMP 01/24/25 11:28 Sodium 135 L Potassium 3.2 L Chloride 98 Carbon Dioxide 23 BUN 30 H D Creatinine 1.47 H Glucose 183 H Calcium 9.9 Liver Function 01/24/25 Range/Units 11:28 Total Bilirubin 1.0 (0.2-1.3) mg/dL AST 28 (14-36) U/L ALT 23 (6-35) U/L Alkaline Phosphatase 129 H (38-126) U/L Albumin 4.3 (3.5-5.1) g/dL Imaging chest CTA: Radiologist's impression: EXAMINATION: CTA chest PE protocol DATE: 01/24/2025 13:43 INDICATION: Atrial fibrillation with rapid ventricular response. Lower limb swelling. Elevated d-dimer. TECHNIQUE: Computed tomography (CT) pulmonary angiogram of the chest was performed with 100 mL Omnipaque-350 intravenous contrast. Additional 3D rec onstructions utilizing coronal maximum intensity projection (MIP) were performed. Automated exposure control and iterative reconstruction technique were employed. The dose-length product was 732.33 mGy-cm. COMPARISON: None FINDINGS: No pulmonary embolism. Dependent atelectasis in bilateral upper and lower lobes, basilar atelectasis in the right middle lobe along the mildly elevated right hemidiaphragm and additional mild discoid atelectasis in the lingula. No pneumonia, pulmonary edema or pleural effusion. Heart size is normal but with left atrial enlargement. No pericardial effusion. Thoracic aorta is normal in caliber with no dissection. No pathologically enlarged thoracic lymphadenopathy. Visualized upper abdomen is unremarkable. Moderate thoracic spondylosis. T10 hemangioma. IMPRESSION: 1. No pulmonary embolism. 2. Bilateral dependent and basilar atelectasis. No other acute cardiopulmonary disease. 3. Normal heart size but with left atrial enlargement. Reviewed, dictated and finalized at location B. TERING FILTERING SUPERVISOR Chest x-ray: Radiologist's impression: XR chest 1V portable Ordering provider: Beth Schwab PA-C History: 69 years Female with . afib with RVR . Comparison: None. FINDINGS: MEDIASTINUM: The cardiac silhouette is not enlarged. Prominent both alvin. LUNGS: No effusions or pneumothorax. Interstitial changes seen bilaterally. OTHER: No free air under the diaphragm. Degenerative changes of the spine. IMPRESSION: Prominent both alvin. Further evaluation with CT is advised. Bilateral interstitial changes which may indicate fibrotic changes versus pneumonitis. Reviewed, dictated and finalized at location A. TERING FILTERING SUPERVISOR venous Doppler: Radiologist's impression: BILATERAL LOWER EXTREMITY VENOUS ULTRASOUND Ordering provider: Beth Schwab PA-C History: . edema, elevated dimer . Comparison: None. FINDINGS: RIGHT LOWER EXTREMITY VEINS: --COMMON FEMORAL: Patent and free of thrombus. Normal compressibility, phasic flow and augmentation. --PROXIMAL SUPERFICIAL FEMORAL: Patent and free of thrombus. Normal compressibility, phasic flow and augmentation. --DISTAL SUPERFICIAL FEMORAL: Patent and free of thrombus. Normal compressibility, phasic flow and augmentation. --POPLITEAL: Patent and free of thrombus. Normal compressibility, phasic flow and augmentation. --POSTERIOR TIBIAL: Patent and free of thrombus. Normal compressibility, phasic flow and augmentation. LEFT LOWER EXTREMITY VEINS: --COMMON FEMORAL: Patent and free of thrombus. Normal compressibility, phasic flow and augmentation. --PROXIMAL SUPERFICIAL FEMORAL: Patent and free of thrombus. Normal compre ssibility, phasic flow and augmentation. --DISTAL SUPERFICIAL FEMORAL: Patent and free of thrombus. Normal compressibility, phasic flow and augmentation. --POPLITEAL: Patent and free of thrombus. Normal compressibility, phasic flow and augmentation. --POSTERIOR TIBIAL: Patent and free of thrombus. Normal compressibility, phasic flow and augmentation. IMPRESSION: Negative bilateral lower extremity venous US. No deep vein thrombosis. Reviewed, dictated and finalized at location A. TERING FILTERING SUPERVISOR Assessment and Plan Assessment and plan (1) Atrial fibrillation with RVR: Code(s): I48.91 - Unspecified atrial fibrillation Status: Acute Assessment and Plan: * EKG showing AFib with RVR with rate 166, QTC 423-- new onset * cardiology consulted * patient given Cardizem bolus and started on Cardizem drip started in the ED however her rate did not correct and we switched her to amiodarone bolus and drip with no improvement--will await Cardiology recommendation * continue metoprolol per Cardiology recommendation * continue cardiac monitoring * admit to IMU (2) Cellulitis: Code(s): L03.90 - Cellulitis, unspecified Status: Acute Assessment and Plan: recently placed on Keflex for left lower extremity cellulitis * white blood cell count 14.0, ESR 106, CRP 17.2 * blood cultures obtained and pending * patient given dose of Ancef in the ED * Will restart Keflex as I do not see any resemblance of cellulitis in her lower extremities (3) Hypertension: Code(s): I10 - Essential (primary) hypertension Status: Acute Assessment and Plan: * blood pressure ranging 96/64 to 114/74 * will hold off on blood pressure medications at this time (4) History of hyperlipidemia: Code(s): Z86.39 - Personal history of other endocrine, nutritional and metabolic disease Status: Acute Assessment and Plan: * continue atorvastatin Quality VTE Prophylaxis VTE prophylaxis: pharmacologic ordered Hospitalist MIPS Advance Care Plan I have confirmed that the patient's Advanced Care Plan is present, code status is documented, or surrogate decision maker is listed in patient medical record.: Yes Medication Reconciliation I have utilized all available resources to obtain, update and review the patients current medications (includes all prescriptions, OTC, herbals, cannabis, and nutritional supplements).: Yes
[2025-01-24] MEDS: ceFAZolin 1 GM/NS 50 ML 1 GM/50 ML BAG IVPB (15:40)
--- NOTE | 2025-01-24 19:28 | PC.NURSE ---
Pt placed in room 2. Assumed care of pt after receiving report from Mel Mccollum RN @ [phone]
[2025-01-24] MEDS: dilTIAZem 100 MG/100 ML 100 MG/100 ML BAG 15 MG IV CONT (19:51)
--- NOTE | 2025-01-24 21:59 | ADMGEN ---
This patient, Amaris Butler, was admitted to IMU Room 211-01. Patient/family oriented to hospital policies and general routines including ID bracelet, bed and alarms, visiting hours, pain management, procedures, bathroom and other care routines, personal items, smoking policy, room service/diet, and visiting hours. Information on how to activate the Rapid Response Team has been discussed. Patient/Family are encouraged to report perceived risks to care and to ask questions if they do not understand what they are told or what they should do.
[2025-01-24] MEDS: ALPRAZolam (*CRX) 0.25 MG TABLET PO (23:26)
[2025-01-25] VITALS (29 sets, daily range): BP systolic 100–143; BP diastolic 49–99; PULSE 62–169; RESP 20–22; TEMP 36.7–37.3; O2SAT 92–100
--- NOTE | 2025-01-25 | ECHO_ITS ---
Patient Info Name: Amaris Butler Age: 69 years : 1955 Gender: Female Ht: 64 in Wt: 228 lbs BSA: 2.21 m2 HR: 149 bpm BP: 115 / 68 mmHg Heart Rhythm: Atrial Fibrillation Exam Date: 01/25/2025 3:27 PM Exam Location: Echo Lab Patient Status: Inpatient Admit Date: 01/25/2025 Staff Ordering Physician: Raimundo Casey MD (edward/pat) Bilingual Call Center Representative: Noelle Kendall RDCS Attending Provider: Dinesh Anderson MD Referring Physician: Jacinto SAUNDERS; Exam Type: CA echo doppler color flow Study Info Indications - A-fib Complete two-dimensional, color flow and Doppler transthoracic echocardiogram is performed. Summary 1. Complete two-dimensional, color flow and Doppler transthoracic echocardiogram is performed. 2. There is normal biventricular size and systolic function. 3. The left atrium is severely dilated. 4. There is no significant valvular disease. Left Ventricle The left ventricle is normal in size and systolic function. There is concentric left ventricular remodeling. The left ventricular ejection fraction is visually estimated to be 60-65%. Right Ventricle The right ventricle is normal in size and systolic function. Left Atria The left atrium is severely dilated. Right Atria The right atrium is dilated. Atrial Septum The atrial septum is not well visualized. Aortic Valve The aortic valve is not well visualized however the echo Doppler gradients across the valve suggests normal function valve. Pulmonic Valve The pulmonic valve is grossly normal. There is no significant pulmonic valve regurgitation. Mitral Valve The mitral valve is normal. There is no mitral regurgitation. Tricuspid Valve The tricuspid valve is normal. There is trace tricuspid regurgitation. Pericardium/Pleural Pericardium is normal in appearance with no evidence for significant pericardial effusion. Inferior Vena Cava Normal inferior vena cava with <50% collapse upon inspiration consistent with elevated right atrial pressure, 8 mmHg. Left Ventricular Outflow Tract Name Value Normal LVOT 2D LVOT Diameter 2.0 cm LVOT Doppler LVOT Peak Gradient 4 mmHg LVOT Mean Gradient 2 mmHg LVOT VTI 20 cm LVOT VTI/AV VTI Ratio 0.8 LVOT Stroke Volume 62 ml LVOT CO 13.6 l/min LVOT CI 6.1 l/min/m2 Pulmonic Valve Name Value Normal RVOT Doppler RVOT Peak Gradient 3 mmHg PV Doppler PV Peak Gradient 5 mmHg Mitral Valve Name Value Normal MV Doppler MV Decel [place] 542 cm/s2 MV PHT 56 ms MV Area (PHT) 3.9 cm2 4.0-5.0 MV Diastolic Function MV E Peak Velocity 105 cm/s MV A Peak Velocity 1 cm/s MV E/A 79.6 MV Decel Time 193 ms MV Annular TDI MV E/e' (Septal) 10.0 <=8.0 MV E/e' (Lateral) 0.1 <=8.0 MV E/e' (Average) 5.0 Tricuspid Valve Name Value Normal TV Regurgitation Doppler TR Peak Velocity 284 cm/s TR Peak Gradient 22 mmHg Estimated PAP/RSVP RA Pressure 8 mmHg <=5 PA Systolic Pressure 40 mmHg <36 RV Systolic Pressure 40 mmHg <36 Aortic Valve Name Value Normal AV Doppler AV Peak Velocity 168 cm/s AV Peak Gradient 8 mmHg AV Mean Gradient 4 mmHg AV VTI 24 cm AV Area (Cont Eq VTI) 2.5 cm2 >=3.0 AV Area (Cont Eq Boni) 2.8 cm2 AV Regurgitation 2D LVOT Area 3.1 cm2 Ventricles Name Value Normal LV Dimensions 2D/MM IVS Diastolic Thickness (2D) 1.3 cm 0.6-1.0 LVID Diastole (2D) 4.2 cm 3.8-5.2 LVIW Diastolic Thickness (2D) 1.1 cm 0.6-0.9 LVID Systole (2D) 3.1 cm 2.2-3.5 LVOT Diameter 2.0 cm LV Mass (2D Cubed) 173.84 g 67.00-162.00 LV Mass Index (2D Cubed) 79 g/m2 43-95 Relative Wall Thickness (2D) 0.52 LV Fractional Shortening/Ejection Fraction 2D/MM LV Fractional Shortening (2D) 26 % 27-45 LV EF (2D Teicholz) 52 % 54-74 LV Diastolic Volume (4C MOD) 47 ml LV EF (4C MOD) 74 % LV Diastolic Volume (2C MOD) 74 ml LV EF (2C MOD) 61 % LV Diastolic Volume (BP MOD) 62 ml 46-106 LV Diastolic Volume Index (BP MOD) 28 ml/m2 29-61 LV Systolic Volume (BP MOD) 20 ml 14-42 LV Systolic Volume Index (BP MOD) 9 ml/m2 8-24 LV EF (BP MOD) 68 % 54-74 LV Diastolic Length (4C) 6.2 cm LV Systolic Length (4C) 5.1 cm LV Stroke Volume (4C MOD) 35 ml Atria Name Value Normal LA Dimensions LA Volume (4C A-L) 108 ml LA Volume (BP A-L) 113 ml RA Dimensions RA Area (4C) 20.6 cm2 <=18.0 Report Signatures
[2025-01-25] MEDS: AMIODARONE 150 MG/D5W 100 ML 150 MG/100 ML BAG 600 MG IV CONT (00:12)
[2025-01-25] MEDS: APIXABAN 5 MG TABLET PO ×3 (00:16→20:29)
[2025-01-25] MEDS: AMIODARONE 360 MG/D5W 200 ML 360 MG/200 ML BAG 33.33 MG IV CONT (00:28)
[2025-01-25] MEDS: AMIODARONE 360 MG/D5W 200 ML 360 MG/200 ML BAG 16.67 MG IV CONT ×2 (06:07→17:59)
[2025-01-25] MEDS: METOPROLOL TARTRATE 25 MG TABLET PO ×2 (08:16→20:29)
[2025-01-25] MEDS: hydroCHLOROthiazide 25 MG TABLET PO (08:16)
[2025-01-25] MEDS: ATORVASTATIN 20 MG TABLET PO (08:17)
--- NOTE | 2025-01-25 11:46 | PM.CNCAR ---
Assessment and Plan Assessment and plan (1) Atrial fibrillation with RVR: Code(s): I48.91 - Unspecified atrial fibrillation Status: Acute Plan 1. Atrial fibrillation with RVR. New diagnosis for the patient. 2. Cellulitis of lower extremity 3. Hypertension 4. Hyperlipidemia 5. Lymphedema 6. 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 -Discussed diagnosis of AFIB with the patient and treatment options of rate control vs rhythm control. Given persistent RVR depsite Diltiazem drip, Amiodarone drip, recommend KAMRYN-guided DCCV. Discussed procedure with the patient, including indication for procedure, procedure details, risks vs benefits, alternative management options. Patient agreeable to proceed. Will plan for KAMRYN-guided DCCV tomorrow pending Anesthesia team availability. NPO at midnight. -Obtain TTE. -Continue Amiodarone drip and PO Metoprolol for now. -[id number] of 3 for age, gender, hypertension. FCI anticoagulation indicated for stroke risk reduction. Already started on Eliquis 5mg BID, continue. Recommendations and plan discussed with Hospitalist. History of Present Illness History of Present Illness Consult date/time: 01/25/25 11:46 Requesting physician: Rain Carranza APRN Consult reason: atrial fibrillation Reason For Visit: Afib with RVR Narrative: We are consulted for atrial fibrillation with RVR. Amaris is a 69 year old female with hypertension, hyperlipidemia, lymphedema, history of transient global amnesia in November 2023 who presented to [place] for cellulitis to left lower extremity. Found to be in atrial fibrillation with RVR. Started on Diltiazem drip initially, however, had heart rates persisting into the 150s overnight, therefore, now on Amiodarone drip by the Hospitalist. At the time of my evaluation, heart rates as high as the 130s on Amiodarone drip. Denies chest pain, palpitations, shortness of breath. Review of Systems Review of Systems: All systems reviewed & are unremarkable except as noted in HPI and below (HPI) [facility] Past Medical History Medical History Kidney stone Arthritis History of hyperlipidemia Cellulitis of right leg Hypertension Surgical History Surgical History History of bunionectomy Family History Family History Mother Acute myocardial infarction Hypertension Father Renal failure Social History Social History Smoking status: Never smoker Second hand tobacco smoke exposure: No Alcohol intake: former Substance use: never Do You Feel Safe in your Home?: Yes Lack of Transportation: No Lack of Food: Never True Current Housing: I Have Housing Concerned About Future Housing: No Difficulty Paying Gas/Electric Bills: No Difficulty Paying for Meds: No Currently Unemployed: No Education: Associate Degree Difficulty w/ Childcare or Family Care: No Gender identity (if verbalized by the patient): Female Spiritual care concerns: No Meds Home Medications and Allergies Home Medications ?Medication ?Instructions ?Recorded ?Confirmed ?Type atorvastatin 20 mg tablet 20 mg PO DAILY 11/26/23 01/24/25 History ergocalciferol (vitamin D2) 1,250 1,250 mcg PO WEEKLY 11/26/23 01/24/25 History mcg (50,000 unit) capsule hydrochlorothiazide 25 mg tablet 25 mg PO DAILY 11/26/23 01/24/25 History metoprolol succinate 50 mg 50 mg PO DAILY 11/26/23 01/24/25 History tablet,extended release 24 hr trandolapril 2 mg tablet 2 mg PO DAILY 11/26/23 01/24/25 History cephalexin 500 mg capsule 500 mg PO TID 01/24/25 01/24/25 History Allergies Allergy/AdvReac Type Severity Reaction Status Date / Time doxycycline Allergy Unknown Unknown Verified 01/24/25 11:48 Sulfa (Sulfonamide Allergy Unknown Verified 01/24/25 11:48 Antibiotics) sulfamethoxazole (From Allergy Rash Verified 01/24/25 11:48 Bactrim) trimethoprim (From Bactrim) Allergy Rash Verified 01/24/25 11:48 Vital Signs Vital Signs - 24 hr 01/24/25 11:49 01/24/25 11:52 01/24/25 12:06 Temperature Pulse Rate 147 H 142 H Respiratory Rate 20 23 H Blood Pressure 105/68 96/65 L Pulse Oximetry 95 95 96 Oxygen Delivery Room Air Oxygen Flow Rate 01/24/25 12:18 01/24/25 12:20 01/24/25 12:56 Temperature Pulse Rate 146 H 149 H 154 H Respiratory Rate 20 20 Blood Pressure 113/72 113/72 128/74 Pulse Oximetry 95 94 Oxygen Delivery Oxygen Flow Rate 01/24/25 12:56 01/24/25 13:09 01/24/25 13:13 Temperature Pulse Rate 156 H 154 H Respiratory Rate 19 Blood Pressure 128/74 96/64 L Pulse Oximetry 96 96 Oxygen Delivery Nasal Cannula Oxygen Flow Rate 2 01/24/25 14:03 01/24/25 14:07 01/24/25 14:12 Temperature Pulse Rate 152 H 152 H 148 H Respiratory Rate 21 H Blood Pressure 100/72 100/72 Pulse Oximetry 97 Oxygen Delivery Oxygen Flow Rate 01/24/25 14:22 01/24/25 14:35 01/24/25 15:32 Temperature Pulse Rate 141 H 139 H 130 H Respiratory Rate 18 23 H Blood Pressure 114/74 113/89 Pulse Oximetry 96 95 Oxygen Delivery Oxygen Flow Rate 01/24/25 15:40 01/24/25 16:17 01/24/25 17:00 Temperature Pulse Rate 124 H 122 H 122 H Respiratory Rate 22 H 15 21 H Blood Pressure 113/89 100/84 129/77 Pulse Oximetry 95 91 95 Oxygen Delivery Oxygen Flow Rate 01/24/25 18:40 01/24/25 19:45 01/24/25 19:51 Temperature Pulse Rate 139 H 110 H 114 H Respiratory Rate 25 H 22 H Blood Pressure 90/74 L 102/75 102/75 Pulse Oximetry 95 94 Oxygen Delivery Oxygen Flow Rate 01/24/25 19:51 01/24/25 20:00 01/24/25 21:25 Temperature Pulse Rate 120 H 108 H 105 H Respiratory Rate 23 H 24 H Blood Pressure 126/83 126/70 136/76 Pulse Oximetry 96 96 Oxygen Delivery Oxygen Flow Rate 01/24/25 21:55 01/24/25 22:00 01/24/25 22:00 Temperature 36.8 C Pulse Rate 149 H 121 H Respiratory Rate 20 Blood Pressure 113/59 L 113/59 L Pulse Oximetry 92 92 Oxygen Delivery Nasal Cannula Oxygen Flow Rate 2 01/24/25 22:00 01/24/25 23:49 01/25/25 00:00 Temperature 36.9 C Pulse Rate 121 H 138 H Respiratory Rate 20 Blood Pressure 102/61 Pulse Oximetry 95 95 Oxygen Delivery Nasal Cannula Oxygen Flow Rate 2 01/25/25 00:00 01/25/25 00:12 01/25/25 00:28 Temperature Pulse Rate 137 H 136 H 123 H Respiratory Rate Blood Pressure 102/61 102/61 Pulse Oximetry Oxygen Delivery Oxygen Flow Rate 01/25/25 00:28 01/25/25 00:30 01/25/25 01:00 Temperature Pulse Rate 123 H 123 H 107 H Respiratory Rate Blood Pressure 102/61 102/61 102/61 Pulse Oximetry Oxygen Delivery Oxygen Flow Rate 01/25/25 01:30 01/25/25 02:00 01/25/25 02:00 Temperature Pulse Rate 102 H 129 H 129 H Respiratory Rate Blood Pressure 102/61 120/61 120/61 Pulse Oximetry 97 Oxygen Delivery Oxygen Flow Rate 01/25/25 02:00 01/25/25 02:00 01/25/25 02:30 Temperature Pulse Rate 129 H 111 H 109 H Respiratory Rate Blood Pressure 120/61 120/61 Pulse Oximetry Oxygen Delivery Oxygen Flow Rate 01/25/25 03:00 01/25/25 04:00 01/25/25 04:00 Temperature 37.0 C Pulse Rate 119 H 114 H Respiratory Rate 20 Blood Pressure 120/61 124/83 Pulse Oximetry 93 93 Oxygen Delivery Nasal Cannula Oxygen Flow Rate 2 01/25/25 04:00 01/25/25 04:00 01/25/25 06:00 Temperature Pulse Rate 125 H 125 H 137 H Respiratory Rate Blood Pressure 124/83 125/78 Pulse Oximetry Oxygen Delivery Oxygen Flow Rate 01/25/25 06:00 01/25/25 06:07 01/25/25 06:07 Temperature Pulse Rate 137 H 137 H 137 H Respiratory Rate Blood Pressure 125/78 125/78 Pulse Oximetry Oxygen Delivery Oxygen Flow Rate 01/25/25 08:00 01/25/25 08:00 01/25/25 08:00 Temperature Pulse Rate 145 H 145 H Respiratory Rate Blood Pressure 119/99 H Pulse Oximetry 92 Oxygen Delivery Nasal Cannula Oxygen Flow Rate 2 01/25/25 08:04 01/25/25 08:16 01/25/25 10:00 Temperature 36.7 C Pulse Rate 155 H 150 H 119 H Respiratory Rate 20 Blood Pressure 119/99 H Pulse Oximetry 92 Oxygen Delivery Oxygen Flow Rate 01/25/25 10:00 01/25/25 10:00 01/25/25 11:43 Temperature 36.7 C Pulse Rate 127 H 127 H Respiratory Rate 20 Blood Pressure 100/62 100/62 Pulse Oximetry 94 94 Oxygen Delivery Nasal Cannula Oxygen Flow Rate 2 Exam Const: General: comfortable and no acute distress HENMT: Mouth: Yes moist mucous membranes Eyes: General: appearance normal, both eyes and all related structures Sclera: sclerae normal Resp: Effort & Inspection: normal respiratory effort Cardio: Rate: tachycardic Rhythm: abnormal rhythm irregularly irregular Heart sounds: no murmurs Skin: General skin exam: erythema Neuro: Speech: normal speech Psych: Mental Status: mental status grossly normal Affect: normal affect Results Labs and Meds 01/24/25 11:28 01/24/25 11:28 Lab results: Cardiac Enzymes 01/24/25 Range/Units 11:28 AST 28 (14-36) U/L Coagulation 01/24/25 Range/Units 11:28 PT 14.8 H (11.1-14.7) Seconds APTT 29.9 (22.3-36.8) Seconds Comprehensive Metabolic Panel 01/24/25 Range/Units 11:28 Sodium 135 L (137-145) mmol/L Potassium 3.2 L (3.4-5.0) mmol/L Chloride 98 (98-107) mmol/L Carbon Dioxide 23 (22-30) mmol/L BUN 30 H D (7-17) mg/dL Creatinine 1.47 H (0.7-1.0) mg/dL Glucose 183 H (65-110) mg/dL Calcium 9.9 (8.4-10.2) mg/dL AST 28 (14-36) U/L ALT 23 (6-35) U/L Alkaline Phosphatase 129 H (38-126) U/L Total Protein 8.0 (6.3-8.2) g/dL Albumin 4.3 (3.5-5.1) g/dL Intake and Output 01/24/25 01/25/25 01/25/25 23:59 07:59 15:59 Intake Total 168.1 596.4 184.7 Output Total 300 400 Balance 168.1 296.4 -215.3 Intake: IV 168.1 356.4 64.7 Amiodarone 150 mg/D5w 100 ml 100 150 mg In 100 ml @ 15 MG/MIN 600 mls/hr IV CONT .Q10M [facility] Rx #:[id number] Amiodarone 360 mg/D5w 200 ml 200.0 64.7 360 mg In 200 ml @ 0.5 MG/MIN 16.667 mls/hr IV CONT .Q12H [facility] Rx#:[id number] dilTIAZem 100 MG/100 ML 100 mg 118.1 56.4 In 100 ml @ 15 MG/HR 15 mls/hr IV CONT .Q6H40M [facility] Rx#: [id number] ceFAZolin 1 GM/NS 50 ML 1 gm In 50 50 ml @ 100 mls/hr IVPB ONCE [facility] Rx#:[id number] Oral 240 120 Output: Urine 300 400 Patient Weight 01/25/25 23:59 Weight 99.1 kg
[2025-01-25 13:38] LABS: Basophils Percent Auto 0.3 % (0.2-1.2); Eosinophils Percent Auto 0.4 % (0-4.4); Hematocrit 38.8 % (37.0-47.0); Hemoglobin 12.8 g/dL (12.0-15.0); Immature Granulocyte Absolute 0.04 K/mm3 (0.00-0.031); Immature Granulocyte Percent A 0.4 % (0-0.5); Lymphocytes Absolute Auto 2.07 K/mm3 (0.9-3.2); Mean Corpuscular Hemoglobin 29.8 pg (26-34); Mean Corpuscular Volume 90.4 fl (80-100); Mean Platelet Volume 10.3 fl (7.4-10.4); Monocytes Percent Auto 9.3 % (2.6-8.5); Neutrophils Absolute Auto 7.7 K/mm3 (1.3-6.7); Neutrophils Percent Auto 70.6 % (45.5-73.1); Platelet Count Result 327 k/mm3 (150-375); Red Blood Count 4.29 M/mm3 (4.2-5.4); Red Cell Distribution Width 13.3 % (11.5-14.5); White Blood Count 10.9 K/mm3 (4.5-10.0)
[2025-01-25 15:11] LABS: Alanine Aminotransferase 24 U/L (6-35); Albumin Level 3.8 g/dL (3.5-5.1); Alkaline Phosphatase 119 U/L (38-126); Anion Gap 14 mmol/L (4-12); Aspartate Amino Transferase 40 U/L (14-36); Bilirubin,Total 0.5 mg/dL (0.2-1.3); Blood Urea Nitrogen 28 mg/dL (7-17); Calcium 9.5 mg/dL (8.4-10.2); Carbon Dioxide 25 mmol/L (22-30); Chloride 99 mmol/L (98-107); Estimated CRCL calculation 72 ml/min; Estimated Glomerular Filt Rate > 60; Glucose 131 mg/dL (65-110); Magnesium 2.1 mg/dL (1.6-2.3); Potassium 3.4 mmol/L (3.4-5.0); Sodium 138 mmol/L (137-145)
--- NOTE | 2025-01-25 17:19 | P.PNIM_ITS ---
Progress Note: A&P Assessment and Plan (1) Atrial fibrillation with RVR: Code(s): I48.91 - Unspecified atrial fibrillation Status: Acute Assessment and Plan: * EKG showing AFib with RVR with rate 166, QTC 423-- new onset * cardiology consulted * patient given Cardizem bolus and started on Cardizem drip started in the ED however her rate did not correct and we switched her to amiodarone bolus and drip with no improvement--will await Cardiology recommendation * continue metoprolol per Cardiology recommendation * continue cardiac monitoring * admit to IMU 3/5 * NPO after midnight * Plan for KAMRYN and cardioversion with Cardiology tomorrow * Continue amiodarone infusion * Continue cardiac monitoring * Continue IMU status (2) Cellulitis: Code(s): L03.90 - Cellulitis, unspecified Status: Acute Assessment and Plan: recently placed on Keflex for left lower extremity cellulitis * white blood cell count 14.0, ESR 106, CRP 17.2 * blood cultures obtained and pending * patient given dose of Ancef in the ED * Will restart Keflex as I do not see any resemblance of cellulitis in her lower extremities 3 * No change to current treatment plan (3) Hypertension: Code(s): I10 - Essential (primary) hypertension Status: Acute Assessment and Plan: * blood pressure ranging 96/64 to 114/74 * will hold off on blood pressure medications at this time 01/25 * No change (4) History of hyperlipidemia: Code(s): Z86.39 - Personal history of other endocrine, nutritional and metabolic disease Status: Acute Assessment and Plan: * continue atorvastatin 01/25 * No change to current treatment plan Time Spent With Patient Time with patient: 25 - 35 minutes Subjective Date/time seen: 01/25/25 17:19 Interval history: Interval history: This is a 69-year-old female with a significant past medical history of hypertension, hyperlipidemia, kidney stones, arthritis, cellulitis presented to the hospital with complaints of cellulitis to the left lower extremity. She was recently started Keflex however she fell that this was not working and presented for further evaluation. While in the ED she was found to be in A Fib RVR with a rate of 166, QTC 423. Workup in the hospital included a chest x-ray showed bilateral interstitial changes which may indicate fibrotic changes versus pneumonitis. Chest CTA was negative for PE, showed bilateral basilar atelectasis, left atrial enlargement. Initial labs showed a white blood cell count of 14.0, INR 1.1, D-dimer 1.59, sodium 135, potassium 3.2, anion gap 14, creatinine 1.47, EGFR 35, blood sugar 183, alkaline phosphate 129, C reactive protein 17.2, proBNP 2310. Patient was given 1.5 L of normal saline, Cardizem bolus and drip, 40 mEq of potassium, 25 mg of p.o. metoprolol, 5 mg IV push metoprolol and Ancef while in the ED. Cardiology was consulted. Subjective: Patient is still anxious with worry. Labs reviewed. Review of Systems Review of Systems: All systems reviewed & are unremarkable except as noted in HPI and below Exam Narrative: General: In no acute distress, well nourished Cardiac: Normal S1 and S2. Afib RVR on monitor No murmur, gallops or friction rubs, peripheral pulses intact. Respiratory: Lungs clear to auscultation, no adventitious lung sounds, currently on 2L NC Gastrointestinal: soft, non-distended, non-tender, normoactive bowel sounds. : voiding without difficulty. Neuro: Alert and oriented x4 Objective Data Vital Signs Vital Signs: Vital Signs - 24 hr 01/24/25 18:40 01/24/25 19:45 01/24/25 19:51 Temperature Pulse Rate 139 H 110 H 114 H Respiratory Rate 25 H 22 H Blood Pressure 90/74 L 102/75 102/75 Pulse Oximetry 95 94 Oxygen Delivery Oxygen Flow Rate 01/24/25 19:51 01/24/25 20:00 01/24/25 21:25 Temperature Pulse Rate 120 H 108 H 105 H Respiratory Rate 23 H 24 H Blood Pressure 126/83 126/70 136/76 Pulse Oximetry 96 96 Oxygen Delivery Oxygen Flow Rate 01/24/25 21:55 01/24/25 22:00 01/24/25 22:00 Temperature 98.2 F Pulse Rate 149 H 121 H Respiratory Rate 20 Blood Pressure 113/59 L 113/59 L Pulse Oximetry 92 92 Oxygen Delivery Nasal Cannula Oxygen Flow Rate 2 01/24/25 22:00 01/24/25 23:49 01/25/25 00:00 Temperature 98.5 F Pulse Rate 121 H 138 H Respiratory Rate 20 Blood Pressure 102/61 Pulse Oximetry 95 95 Oxygen Delivery Nasal Cannula Oxygen Flow Rate 2 01/25/25 00:00 01/25/25 00:12 01/25/25 00:28 Temperature Pulse Rate 137 H 136 H 123 H Respiratory Rate Blood Pressure 102/61 102/61 Pulse Oximetry Oxygen Delivery Oxygen Flow Rate 01/25/25 00:28 01/25/25 00:30 01/25/25 01:00 Temperature Pulse Rate 123 H 123 H 107 H Respiratory Rate Blood Pressure 102/61 102/61 102/61 Pulse Oximetry Oxygen Delivery Oxygen Flow Rate 01/25/25 01:30 01/25/25 02:00 01/25/25 02:00 Temperature Pulse Rate 102 H 129 H 129 H Respiratory Rate Blood Pressure 102/61 120/61 120/61 Pulse Oximetry 97 Oxygen Delivery Oxygen Flow Rate 01/25/25 02:00 01/25/25 02:00 01/25/25 02:30 Temperature Pulse Rate 129 H 111 H 109 H Respiratory Rate Blood Pressure 120/61 120/61 Pulse Oximetry Oxygen Delivery Oxygen Flow Rate 01/25/25 03:00 01/25/25 04:00 01/25/25 04:00 Temperature 98.6 F Pulse Rate 119 H 114 H Respiratory Rate 20 Blood Pressure 120/61 124/83 Pulse Oximetry 93 93 Oxygen Delivery Nasal Cannula Oxygen Flow Rate 2 01/25/25 04:00 01/25/25 04:00 01/25/25 06:00 Temperature Pulse Rate 125 H 125 H 137 H Respiratory Rate Blood Pressure 124/83 125/78 Pulse Oximetry Oxygen Delivery Oxygen Flow Rate 01/25/25 06:00 01/25/25 06:07 01/25/25 06:07 Temperature Pulse Rate 137 H 137 H 137 H Respiratory Rate Blood Pressure 125/78 125/78 Pulse Oximetry Oxygen Delivery Oxygen Flow Rate 01/25/25 08:00 01/25/25 08:00 01/25/25 08:00 Temperature Pulse Rate 145 H 145 H Respiratory Rate Blood Pressure 119/99 H Pulse Oximetry 92 Oxygen Delivery Nasal Cannula Oxygen Flow Rate 2 01/25/25 08:00 01/25/25 08:04 01/25/25 08:16 Temperature 98.0 F Pulse Rate 155 H 150 H Respiratory Rate 20 Blood Pressure 119/99 H Pulse Oximetry 92 92 Oxygen Delivery Nasal Cannula Oxygen Flow Rate 2 01/25/25 10:00 01/25/25 10:00 01/25/25 10:00 Temperature 98.0 F Pulse Rate 119 H 127 H 127 H Respiratory Rate 20 Blood Pressure 100/62 100/62 Pulse Oximetry 94 Oxygen Delivery Oxygen Flow Rate 01/25/25 11:43 01/25/25 11:59 01/25/25 14:00 Temperature 98.5 F 98.1 F Pulse Rate 149 H 146 H Respiratory Rate 20 22 H Blood Pressure 115/68 126/78 Pulse Oximetry 94 99 Oxygen Delivery Nasal Cannula Oxygen Flow Rate 2 01/25/25 16:21 Temperature 98.4 F Pulse Rate 129 H Respiratory Rate 20 Blood Pressure 129/90 Pulse Oximetry 95 Oxygen Delivery Oxygen Flow Rate Intake/Output Intake/Output: Intake & Output 01/22/25 01/23/25 01/24/25 01/25/25 23:59 23:59 23:59 23:59 Intake Total 1182.3 1021.1 Output Total 700 Balance 1182.3 321.1 Meds/Results Medications: Active Medications Generic Name Dose Route Start Last Admin Trade Name Freq PRN Reason Stop Dose Admin Apixaban 5 mg 01/24/25 23:55 01/25/25 08:17 Apixaban 5 Mg Tablet PO 5 mg Q12HR MEGGAN Administration Atorvastatin Calcium 20 mg 01/25/25 09:00 01/25/25 08:17 Atorvastatin 20 Mg Tablet PO 20 mg DAILY MEGGAN Administration Cephalexin HCl 500 mg 01/26/25 09:00 Cephalexin 500 Mg Capsule PO TID MEGGAN Ergocalciferol 50,000 units 01/27/25 09:00 Ergocalciferol 50,000 Units Capsule PO Fr@0900 MEGGAN Hydrochlorothiazide 25 mg 01/25/25 09:00 01/25/25 08:16 Hydrochlorothiazide 25 Mg Tablet PO 25 mg DAILY MEGGAN Administration Amiodarone HCl/Dextrose 360 mg in 200 mls @ 16.667 mls/hr 01/25/25 06:00 01/25/25 10:00 Nexterone 360 Mg/D5w 200 Ml IV CONT 0.5 mg/min .Q12H MEGGAN 16.67 mls/hr Infusion 0.5 MG/MIN Metoprolol Tartrate 25 mg 01/25/25 09:00 01/25/25 08:16 Metoprolol Tartrate 25 Mg Tablet PO 25 mg Q12HR MEGGAN Administration Perflutren Lipid Microsphere 0 ml 01/25/25 11:45 Perflutren Lipid Microspheres 1.5 Ml Vial Diluted To 10 Ml Total Volume IV PUSH 01/28/25 11:45 ONCE PRN adequate visualization Protocol Radiology Results: ITS Impressions Venous Doppler Study 01/24/25 12:33 IMPRESSION: Negative bilateral lower extremity venous US. No deep vein thrombosis. Chest X-Ray 01/24/25 13:21 IMPRESSION: Prominent both alvin. Further evaluation with CT is advised. Bilateral interstitial changes which may indicate fibrotic changes versus pneumonitis. Chest CTA 01/24/25 13:50 IMPRESSION: 1. No pulmonary embolism. 2. Bilateral dependent and basilar atelectasis. No other acute cardiopulmonary disease. 3. Normal heart size but with left atrial enlargement. Labs Labs: Laboratory Results - last 24 hr 01/24/25 01/25/25 11:28 12:53 WBC 10.9 H RBC 4.29 Hgb 12.8 Hct 38.8 MCV 90.4 MCH 29.8 MCHC 33.0 RDW 13.3 Plt Count 327 MPV 10.3 Immature Gran % (Auto) 0.4 Neut % (Auto) 70.6 Lymph % (Auto) 19.0 [place] % (Auto) 9.3 H Eos % (Auto) 0.4 Baso % (Auto) 0.3 Lymph # (Auto) 2.07 [place] # (Auto) 1.0 H Eos # (Auto) 0.0 Baso # (Auto) 0.0 Abs Immat Gran (auto) 0.04 H Absolute Neuts (auto) 7.7 H Absolute Nucleated RBC 0.000 Nucleated RBC % 0.0 Sodium 138 Potassium 3.4 Chloride 99 Carbon Dioxide 25 Anion Gap 14 H BUN 28 H Creatinine 0.74 Estim Creat Clear Calc 72 Estimated GFR > 60 Glucose 131 H Calcium 9.5 Magnesium 2.1 Total Bilirubin 0.5 AST 40 H ALT 24 Alkaline Phosphatase 119 Total Protein 8.0 Albumin 3.8 TSH 3.390 Quality VTE Prophylaxis VTE prophylaxis: pharmacologic ordered
[2025-01-25] MEDS: METOPROLOL TARTRATE INJ 5 MG/5 ML VIAL IV PUSH ×2 (18:00→21:49)
[2025-01-25] MEDS: HYDROcodone/acetaminophen (*CRX) 5-325 MG TABLET 1 TAB PO (21:21)
[2025-01-26] VITALS (16 sets, daily range): BP systolic 115–146; BP diastolic 61–96; PULSE 61–86; RESP 18–20; TEMP 36.5–36.9; O2SAT 95–100
--- NOTE | 2025-01-26 00:05 | ECG_ITS ---
Test Date: 2025-01-26 00:04:24 Measurements Intervals [place] Rate: 66 P: 23 VA: 160 QRS: -7 QRSD: 92 T: -1 QT: 419 QTc: 439 Interpretive Statements SINUS RHYTHM MINIMAL VOLTAGE CRITERIA FOR LVH, CONSIDER NORMAL VARIANT [MEETS CRITERIA IN ONE OF: R(aVL), S(V1), R(V5), R(V5/V6)+S(V1)] Compared to ECG 01/24/2025 11:20:47 Atrial fibrillation no longer present T-wave abnormality no longer present Possible ischemia no longer present Electronically Signed On 01-26-2025 13:58:20 PRODUCTION DISPATCHER by Mookie Owens M.D.
[2025-01-26 05:00] LABS: Basophils Percent Auto 0.2 % (0.2-1.2); Eosinophils Absolute Auto 0.1 K/mm3 (0-0.3); Eosinophils Percent Auto 0.6 % (0-4.4); Hematocrit 36.4 % (37.0-47.0); Immature Granulocyte Absolute 0.03 K/mm3 (0.00-0.031); Immature Granulocyte Percent A 0.4 % (0-0.5); Lymphocytes Absolute Auto 1.93 K/mm3 (0.9-3.2); Lymphocytes Percent Auto 22.7 % (18.3-44.2); Mean Corpuscular Hemoglobin 30.2 pg (26-34); Mean Corpuscular Volume 91.7 fl (80-100); Monocytes Absolute Auto 0.9 K/mm3 (0.1-0.6); Monocytes Percent Auto 10.8 % (2.6-8.5); Neutrophils Absolute Auto 5.6 K/mm3 (1.3-6.7); Neutrophils Percent Auto 65.3 % (45.5-73.1); Platelet Count Result 289 k/mm3 (150-375); Red Blood Count 3.97 M/mm3 (4.2-5.4); Red Cell Distribution Width 13.2 % (11.5-14.5); White Blood Count 8.5 K/mm3 (4.5-10.0)
[2025-01-26 05:11] LABS: Alanine Aminotransferase 26 U/L (6-35); Albumin Level 3.5 g/dL (3.5-5.1); Alkaline Phosphatase 108 U/L (38-126); Anion Gap 9 mmol/L (4-12); Aspartate Amino Transferase 36 U/L (14-36); Bilirubin,Total 0.5 mg/dL (0.2-1.3); Blood Urea Nitrogen 25 mg/dL (7-17); Calcium 9.3 mg/dL (8.4-10.2); Carbon Dioxide 29 mmol/L (22-30); Chloride 99 mmol/L (98-107); Estimated CRCL calculation 69 ml/min; Estimated Glomerular Filt Rate > 60; Glucose 118 mg/dL (65-110); Potassium 3.9 mmol/L (3.4-5.0); Sodium 137 mmol/L (137-145)
[2025-01-26] MEDS: ATORVASTATIN 20 MG TABLET PO (10:18)
[2025-01-26] MEDS: CEPHALEXIN 500 MG CAPSULE PO ×2 (10:18→14:02)
[2025-01-26] MEDS: hydroCHLOROthiazide 25 MG TABLET PO (10:18)
[2025-01-26] MEDS: METOPROLOL TARTRATE 25 MG TABLET PO (10:18)
[2025-01-26] MEDS: APIXABAN 5 MG TABLET PO (10:18)
--- NOTE | 2025-01-26 12:06 | PM.PNCARD ---
Progress Note: A&P Assessment and Plan (1) Atrial fibrillation with RVR: Code(s): I48.91 - Unspecified atrial fibrillation Status: Acute (2) Hypertension: Code(s): I10 - Essential (primary) hypertension Status: Acute (3) History of hyperlipidemia: Code(s): Z86.39 - Personal history of other endocrine, nutritional and metabolic disease Status: Acute Plan 61-year-old woman with hypertension presented with cellulitis found to have atrial fibrillation with rapid ventricular rate Paroxysmal atrial fibrillation -has converted to sinus rhythm and would recommend continue Eliquis 5 mg p.o. b.i.d. and Lopressor 25 mg p.o. b.i.d. Hypertension -continue hydrochlorothiazide Hyperlipidemia -continue atorvastatin Patient can be discharged from cardiac perspective to follow up outpatient clinic. Subjective Date/time seen: 01/26/25 12:06 Interval history: Denies any chest pain or shortness of breath. No palpitations. Feels well overall. Review of Systems Cardiovascular: Cardiovascular: Reports as per HPI Respiratory: Respiratory: Reports as per HPI Exam Const: General: comfortable HENMT: Mouth: Yes moist mucous membranes Eyes: EOM: EOMs intact bilaterally Neck: Neck: no JVD Resp: Effort & Inspection: normal respiratory effort Auscultation: clear to auscultation bilaterally Cardio: Rate: regular rate Rhythm: regular rhythm Extrem: General: no pedal edema Objective Data Vital Signs Vital Signs: Vital Signs - 24 hr 01/25/25 14:00 01/25/25 14:00 01/25/25 14:00 Temperature 36.7 C Pulse Rate 146 H 140 H 146 H Respiratory Rate 22 H Blood Pressure 126/78 126/78 Pulse Oximetry Oxygen Delivery Oxygen Flow Rate 01/25/25 16:00 01/25/25 16:00 01/25/25 16:00 Temperature Pulse Rate 130 H 129 H Respiratory Rate Blood Pressure 129/90 Pulse Oximetry 99 Oxygen Delivery Nasal Cannula Oxygen Flow Rate 2 01/25/25 16:21 01/25/25 17:59 01/25/25 17:59 Temperature 36.9 C Pulse Rate 129 H 169 H 169 H Respiratory Rate 20 Blood Pressure 129/90 Pulse Oximetry 95 Oxygen Delivery Oxygen Flow Rate 01/25/25 18:00 01/25/25 18:00 01/25/25 18:00 Temperature 37.2 C Pulse Rate 169 H 134 H 141 H Respiratory Rate 20 Blood Pressure 117/49 L Pulse Oximetry 99 Oxygen Delivery Oxygen Flow Rate 01/25/25 18:00 01/25/25 20:00 01/25/25 20:00 Temperature 37.3 C Pulse Rate 134 H 144 H Respiratory Rate 20 Blood Pressure 117/49 L 143/74 H Pulse Oximetry 100 100 Oxygen Delivery Nasal Cannula Oxygen Flow Rate 2 01/25/25 20:00 01/25/25 20:00 01/25/25 20:29 Temperature Pulse Rate 156 H 144 H 155 H Respiratory Rate Blood Pressure 143/74 H Pulse Oximetry Oxygen Delivery Oxygen Flow Rate 01/25/25 21:49 01/25/25 21:58 01/25/25 22:00 Temperature Pulse Rate 145 H 140 H 62 Respiratory Rate Blood Pressure 125/67 Pulse Oximetry 100 Oxygen Delivery Oxygen Flow Rate 01/25/25 22:00 01/26/25 00:00 01/26/25 00:00 Temperature 36.9 C Pulse Rate 140 H 66 Respiratory Rate 20 Blood Pressure 125/67 115/76 Pulse Oximetry 99 99 Oxygen Delivery Nasal Cannula Oxygen Flow Rate 2 01/26/25 00:00 01/26/25 00:00 01/26/25 01:42 Temperature Pulse Rate 63 66 64 Respiratory Rate Blood Pressure 115/76 128/71 Pulse Oximetry 95 Oxygen Delivery Oxygen Flow Rate 01/26/25 02:00 01/26/25 02:00 01/26/25 03:32 Temperature 36.8 C Pulse Rate 61 64 67 Respiratory Rate 20 Blood Pressure 128/71 121/73 Pulse Oximetry 98 Oxygen Delivery Oxygen Flow Rate 01/26/25 04:00 01/26/25 04:00 01/26/25 04:00 Temperature Pulse Rate 61 67 Respiratory Rate Blood Pressure 121/73 Pulse Oximetry 98 Oxygen Delivery Nasal Cannula Oxygen Flow Rate 2 01/26/25 06:00 01/26/25 06:00 01/26/25 06:00 Temperature Pulse Rate 67 67 67 Respiratory Rate Blood Pressure 132/68 132/68 Pulse Oximetry 97 Oxygen Delivery Oxygen Flow Rate 01/26/25 06:05 01/26/25 07:58 01/26/25 10:18 Temperature 36.5 C Pulse Rate 65 84 65 Respiratory Rate 18 Blood Pressure 132/68 140/69 Pulse Oximetry 98 Oxygen Delivery Oxygen Flow Rate 01/26/25 10:52 01/26/25 11:10 01/26/25 11:51 Temperature 36.9 C Pulse Rate 67 Respiratory Rate 18 Blood Pressure 134/61 Pulse Oximetry 100 100 99 Oxygen Delivery Nasal Cannula Room Air Oxygen Flow Rate 0.5 Intake/Output Intake/Output: Intake & Output 01/23/25 01/24/25 01/25/25 01/26/25 23:59 23:59 23:59 23:59 Intake Total 1182.3 1861.0 533.1 Output Total 1100 700 Balance 1182.3 761.0 -166.9 Meds/Results Medications: Active Medications Generic Name Dose Route Start Last Admin Trade Name Freq PRN Reason Stop Dose Admin Acetaminophen 650 mg 01/25/25 21:04 Acetaminophen 325 Mg Tablet PO Q6H PRN Mild Pain (1-3) or Fever Hydrocodone Bitart/Acetaminophen 1 tab 01/25/25 21:04 01/25/25 21:21 Hydrocodone/Acetaminophen (*Crx) 5-325 Mg Tablet PO 1 tab Q6H PRN Administration Pain Rated 4-6 Apixaban 5 mg 01/24/25 23:55 01/26/25 10:18 Apixaban 5 Mg Tablet PO 5 mg Q12HR MEGGAN Administration Atorvastatin Calcium 20 mg 01/25/25 09:00 01/26/25 10:18 Atorvastatin 20 Mg Tablet PO 20 mg DAILY MEGGAN Administration Cephalexin HCl 500 mg 01/26/25 09:00 01/26/25 10:18 Cephalexin 500 Mg Capsule PO 500 mg TID MEGGAN Administration Ergocalciferol 50,000 units 01/27/25 09:00 Ergocalciferol 50,000 Units Capsule PO Fr@0900 MEGGAN Hydrochlorothiazide 25 mg 01/25/25 09:00 01/26/25 10:18 Hydrochlorothiazide 25 Mg Tablet PO 25 mg DAILY MEGGAN Administration Metoprolol Tartrate 25 mg 01/25/25 09:00 01/26/25 10:18 Metoprolol Tartrate 25 Mg Tablet PO 25 mg Q12HR MEGGAN Administration Metoprolol Tartrate 5 mg 01/25/25 17:25 01/25/25 21:49 Metoprolol Tartrate Inj 5 Mg/5 Ml Vial IV PUSH 5 mg Q4HR PRN Administration HR > 140 Morphine Sulfate 2 mg 01/25/25 21:04 Morphine Sulfate (*Crx) 2 Mg/Ml Inj IV PUSH Q4H PRN Pain Rated 7-10 Perflutren Lipid Microsphere 0 ml 01/25/25 11:45 Perflutren Lipid Microspheres 1.5 Ml Vial Diluted To 10 Ml Total Volume IV PUSH 01/28/25 11:45 ONCE PRN adequate visualization Protocol Radiology Results: ITS Impressions Venous Doppler Study 01/24/25 12:33 IMPRESSION: Negative bilateral lower extremity venous US. No deep vein thrombosis. Chest X-Ray 01/24/25 13:21 IMPRESSION: Prominent both alvin. Further evaluation with CT is advised. Bilateral interstitial changes which may indicate fibrotic changes versus pneumonitis. Chest CTA 01/24/25 13:50 IMPRESSION: 1. No pulmonary embolism. 2. Bilateral dependent and basilar atelectasis. No other acute cardiopulmonary disease. 3. Normal heart size but with left atrial enlargement. Labs Labs: Laboratory Results - last 24 hr 01/24/25 01/25/25 01/26/25 11:28 12:53 04:28 WBC 10.9 H 8.5 RBC 4.29 3.97 L Hgb 12.8 12.0 Hct 38.8 36.4 L MCV 90.4 91.7 MCH 29.8 30.2 MCHC 33.0 33.0 RDW 13.3 13.2 Plt Count 327 289 MPV 10.3 10.0 Immature Gran % (Auto) 0.4 0.4 Neut % (Auto) 70.6 65.3 Lymph % (Auto) 19.0 22.7 [place] % (Auto) 9.3 H 10.8 H Eos % (Auto) 0.4 0.6 Baso % (Auto) 0.3 0.2 Lymph # (Auto) 2.07 1.93 [place] # (Auto) 1.0 H 0.9 H Eos # (Auto) 0.0 0.1 Baso # (Auto) 0.0 0.0 Abs Immat Gran (auto) 0.04 H 0.03 Absolute Neuts (auto) 7.7 H 5.6 Absolute Nucleated RBC 0.000 0.000 Nucleated RBC % 0.0 0.0 Sodium 138 137 Potassium 3.4 3.9 Chloride 99 99 Carbon Dioxide 25 29 Anion Gap 14 H 9 BUN 28 H 25 H Creatinine 0.74 0.78 Estim Creat Clear Calc 72 69 Estimated GFR > 60 > 60 Glucose 131 H 118 H Calcium 9.5 9.3 Magnesium 2.1 Total Bilirubin 0.5 0.5 AST 40 H 36 ALT 24 26 Alkaline Phosphatase 119 108 Total Protein 8.0 7.0 Albumin 3.8 3.5 TSH 3.390
--- NOTE | 2025-01-26 14:04 | PM.IMPN ---
Subjective Date/time seen: 01/26/25 14:04 Objective Data Vital Signs Vital Signs: Vital Signs - 24 hr 01/25/25 16:00 01/25/25 16:00 01/25/25 16:00 Temperature Pulse Rate 130 H 129 H Respiratory Rate Blood Pressure 129/90 Pulse Oximetry 99 Oxygen Delivery Nasal Cannula Oxygen Flow Rate 2 01/25/25 16:21 01/25/25 17:59 01/25/25 17:59 Temperature 98.4 F Pulse Rate 129 H 169 H 169 H Respiratory Rate 20 Blood Pressure 129/90 Pulse Oximetry 95 Oxygen Delivery Oxygen Flow Rate 01/25/25 18:00 01/25/25 18:00 01/25/25 18:00 Temperature 99.0 F Pulse Rate 169 H 134 H 141 H Respiratory Rate 20 Blood Pressure 117/49 L Pulse Oximetry 99 Oxygen Delivery Oxygen Flow Rate 01/25/25 18:00 01/25/25 20:00 01/25/25 20:00 Temperature 99.2 F Pulse Rate 134 H 144 H Respiratory Rate 20 Blood Pressure 117/49 L 143/74 H Pulse Oximetry 100 100 Oxygen Delivery Nasal Cannula Oxygen Flow Rate 2 01/25/25 20:00 01/25/25 20:00 01/25/25 20:29 Temperature Pulse Rate 156 H 144 H 155 H Respiratory Rate Blood Pressure 143/74 H Pulse Oximetry Oxygen Delivery Oxygen Flow Rate 01/25/25 21:49 01/25/25 21:58 01/25/25 22:00 Temperature Pulse Rate 145 H 140 H 62 Respiratory Rate Blood Pressure 125/67 Pulse Oximetry 100 Oxygen Delivery Oxygen Flow Rate 01/25/25 22:00 01/26/25 00:00 01/26/25 00:00 Temperature 98.4 F Pulse Rate 140 H 66 Respiratory Rate 20 Blood Pressure 125/67 115/76 Pulse Oximetry 99 99 Oxygen Delivery Nasal Cannula Oxygen Flow Rate 2 01/26/25 00:00 01/26/25 00:00 01/26/25 01:42 Temperature Pulse Rate 63 66 64 Respiratory Rate Blood Pressure 115/76 128/71 Pulse Oximetry 95 Oxygen Delivery Oxygen Flow Rate 01/26/25 02:00 01/26/25 02:00 01/26/25 03:32 Temperature 98.2 F Pulse Rate 61 64 67 Respiratory Rate 20 Blood Pressure 128/71 121/73 Pulse Oximetry 98 Oxygen Delivery Oxygen Flow Rate 01/26/25 04:00 01/26/25 04:00 01/26/25 04:00 Temperature Pulse Rate 61 67 Respiratory Rate Blood Pressure 121/73 Pulse Oximetry 98 Oxygen Delivery Nasal Cannula Oxygen Flow Rate 2 01/26/25 06:00 01/26/25 06:00 01/26/25 06:00 Temperature Pulse Rate 67 67 67 Respiratory Rate Blood Pressure 132/68 132/68 Pulse Oximetry 97 Oxygen Delivery Oxygen Flow Rate 01/26/25 06:05 01/26/25 07:58 01/26/25 10:18 Temperature 97.7 F Pulse Rate 65 84 65 Respiratory Rate 18 Blood Pressure 132/68 140/69 Pulse Oximetry 98 Oxygen Delivery Oxygen Flow Rate 01/26/25 10:52 01/26/25 11:10 01/26/25 11:51 Temperature 98.5 F Pulse Rate 67 Respiratory Rate 18 Blood Pressure 134/61 Pulse Oximetry 100 100 99 Oxygen Delivery Nasal Cannula Room Air Oxygen Flow Rate 0.5 Intake/Output Intake/Output: Intake & Output 01/23/25 01/24/25 01/25/25 01/26/25 23:59 23:59 23:59 23:59 Intake Total 1182.3 1861.0 863.1 Output Total 1100 700 Balance 1182.3 761.0 163.1 Meds/Results Medications: Active Medications Generic Name Dose Route Start Last Admin Trade Name Freq PRN Reason Stop Dose Admin Acetaminophen 650 mg 01/25/25 21:04 Acetaminophen 325 Mg Tablet PO Q6H PRN Mild Pain (1-3) or Fever Hydrocodone Bitart/Acetaminophen 1 tab 01/25/25 21:04 01/25/25 21:21 Hydrocodone/Acetaminophen (*Crx) 5-325 Mg Tablet PO 1 tab Q6H PRN Administration Pain Rated 4-6 Apixaban 5 mg 01/24/25 23:55 01/26/25 10:18 Apixaban 5 Mg Tablet PO 5 mg Q12HR MEGGAN Administration Atorvastatin Calcium 20 mg 01/25/25 09:00 01/26/25 10:18 Atorvastatin 20 Mg Tablet PO 20 mg DAILY MEGGAN Administration Cephalexin HCl 500 mg 01/26/25 09:00 01/26/25 14:02 Cephalexin 500 Mg Capsule PO 500 mg TID MEGGAN Administration Ergocalciferol 50,000 units 01/27/25 09:00 Ergocalciferol 50,000 Units Capsule PO Fr@0900 MEGGAN Hydrochlorothiazide 25 mg 01/25/25 09:00 01/26/25 10:18 Hydrochlorothiazide 25 Mg Tablet PO 25 mg DAILY MEGGAN Administration Metoprolol Tartrate 25 mg 01/25/25 09:00 01/26/25 10:18 Metoprolol Tartrate 25 Mg Tablet PO 25 mg Q12HR MEGGAN Administration Metoprolol Tartrate 5 mg 01/25/25 17:25 01/25/25 21:49 Metoprolol Tartrate Inj 5 Mg/5 Ml Vial IV PUSH 5 mg Q4HR PRN Administration HR > 140 Morphine Sulfate 2 mg 01/25/25 21:04 Morphine Sulfate (*Crx) 2 Mg/Ml Inj IV PUSH Q4H PRN Pain Rated 7-10 Perflutren Lipid Microsphere 0 ml 01/25/25 11:45 Perflutren Lipid Microspheres 1.5 Ml Vial Diluted To 10 Ml Total Volume IV PUSH 01/28/25 11:45 ONCE PRN adequate visualization Protocol Radiology Results: ITS Impressions Venous Doppler Study 01/24/25 12:33 IMPRESSION: Negative bilateral lower extremity venous US. No deep vein thrombosis. Chest X-Ray 01/24/25 13:21 IMPRESSION: Prominent both alvin. Further evaluation with CT is advised. Bilateral interstitial changes which may indicate fibrotic changes versus pneumonitis. Chest CTA 01/24/25 13:50 IMPRESSION: 1. No pulmonary embolism. 2. Bilateral dependent and basilar atelectasis. No other acute cardiopulmonary disease. 3. Normal heart size but with left atrial enlargement. Labs Labs: Laboratory Results - last 24 hr 01/25/25 01/26/25 12:53 04:28 WBC 8.5 RBC 3.97 L Hgb 12.0 Hct 36.4 L MCV 91.7 MCH 30.2 MCHC 33.0 RDW 13.2 Plt Count 289 MPV 10.0 Immature Gran % (Auto) 0.4 Neut % (Auto) 65.3 Lymph % (Auto) 22.7 [place] % (Auto) 10.8 H Eos % (Auto) 0.6 Baso % (Auto) 0.2 Lymph # (Auto) 1.93 [place] # (Auto) 0.9 H Eos # (Auto) 0.1 Baso # (Auto) 0.0 Abs Immat Gran (auto) 0.03 Absolute Neuts (auto) 5.6 Absolute Nucleated RBC 0.000 Nucleated RBC % 0.0 Sodium 138 137 Potassium 3.4 3.9 Chloride 99 99 Carbon Dioxide 25 29 Anion Gap 14 H 9 BUN 28 H 25 H Creatinine 0.74 0.78 Estim Creat Clear Calc 72 69 Estimated GFR > 60 > 60 Glucose 131 H 118 H Calcium 9.5 9.3 Magnesium 2.1 Total Bilirubin 0.5 0.5 AST 40 H 36 ALT 24 26 Alkaline Phosphatase 119 108 Total Protein 8.0 7.0 Albumin 3.8 3.5
--- NOTE | 2025-01-26 14:12 | P.DS_ITS ---
DS: Admitting Diagnosis Discharge Date 01/26/25 Admitting Diagnosis A fib RVR Cellulitis Hypertension hyperlipidemia DS: Discharge Diagnosis Discharge Diagnosis (1) Atrial fibrillation with RVR: Code(s): I48.91 - Unspecified atrial fibrillation Status: Acute (2) Cellulitis: Code(s): L03.90 - Cellulitis, unspecified Status: Acute (3) Hypertension: Code(s): I10 - Essential (primary) hypertension Status: Acute (4) History of hyperlipidemia: Code(s): Z86.39 - Personal history of other endocrine, nutritional and metabolic disease Status: Acute DS: Summary Hospital Course Reason for hospitalization: A fib RVR Cellulitis Hypertension hyperlipidemia Hospital Course: This is a 69-year-old female with a significant past medical history of hypertension, hyperlipidemia, kidney stones, arthritis, cellulitis presented to the hospital with complaints of cellulitis to the left lower extremity. She was recently started Keflex however she fell that this was not working and presented for further evaluation. While in the ED she was found to be in A Fib RVR with a rate of 166, QTC 423. Workup in the hospital included a chest x-ray showed bilateral interstitial changes which may indicate fibrotic changes versus pneumonitis. Chest CTA was negative for PE, showed bilateral basilar atelectasis, left atrial enlargement. Initial labs showed a white blood cell count of 14.0, INR 1.1, D-dimer 1.59, sodium 135, potassium 3.2, anion gap 14, creatinine 1.47, EGFR 35, blood sugar 183, alkaline phosphate 129, C reactive protein 17.2, proBNP 2310. Patient was given 1.5 L of normal saline, Cardizem bolus and drip, 40 mEq of potassium, 25 mg of p.o. metoprolol, 5 mg IV push metoprolol and Ancef while in the ED. Cardiology was consulted. Patient converted overnight to NSR. Her heart rate is now in the mid 60's. Cardiology cleared her for discharge and she is stable to return home on Eliquis and Metoprolol. She will need to follow up with cardiology in 2 weeks. Final diagnosis: A fib RVR, Cellulitis Status at Discharge Cognitive/behavioral status at discharge: Alert and oriented x3 Functional status at discharge: independent ambulation Overall status at discharge: patient is progressing back to baseline Time Spent with Patient Time attestation: Total time spent providing and/or coordinating discharge services: Time spent: Greater than 30 minutes Exam Narrative: General: In no acute distress, well nourished Cardiac: Normal S1 and S2. NSR in the 60's, no murmur, gallops or friction rubs, peripheral pulses intact. Respiratory: Lungs clear to auscultation, no adventitious lung sounds, currently on room air Gastrointestinal: soft, non-distended, non-tender, normoactive bowel sounds. : voiding without difficulty. Neuro: Alert and oriented x4 DS: Data Data Completed and Pending Completed studies during hospitalization: Venous Doppler study Chest CTA Chest x-ray Pending studies at discharge: None Labs on day of discharge: Labs from last 24 hours 01/26/25 01/25/25 04:28 12:53 WBC 8.5 RBC 3.97 L Hgb 12.0 Hct 36.4 L MCV 91.7 MCH 30.2 MCHC 33.0 RDW 13.2 Plt Count 289 MPV 10.0 Immature Gran % (Auto) 0.4 Neut % (Auto) 65.3 Lymph % (Auto) 22.7 [place] % (Auto) 10.8 H Eos % (Auto) 0.6 Baso % (Auto) 0.2 Lymph # (Auto) 1.93 [place] # (Auto) 0.9 H Eos # (Auto) 0.1 Baso # (Auto) 0.0 Abs Immat Gran (auto) 0.03 Absolute Neuts (auto) 5.6 Absolute Nucleated RBC 0.000 Nucleated RBC % 0.0 Sodium 137 138 Potassium 3.9 3.4 Chloride 99 99 Carbon Dioxide 29 25 Anion Gap 9 14 H BUN 25 H 28 H Creatinine 0.78 0.74 Estim Creat Clear Calc 69 72 Estimated GFR > 60 > 60 Glucose 118 H 131 H Calcium 9.3 9.5 Magnesium 2.1 Total Bilirubin 0.5 0.5 AST 36 40 H ALT 26 24 Alkaline Phosphatase 108 119 Total Protein 7.0 8.0 Albumin 3.5 3.8 Preliminary micro results at discharge 01/24/25 15:13 Blood Culture - Preliminary Blood 01/24/25 15:13 Blood Culture - Preliminary Blood Procedures/Treatments: None Discharge Plan Discharge Attending physician on discharge: Rosendo Ornelas Consulting providers: Raimundo Casey Discharging Clinician: Rain Carranza Anticipated Discharge Date/Time: 01/26/25 14:12 Patient Disposition: Home, Self-Care Activity: as tolerated Diet: as tolerated Discharge Instructions: * Finish your Keflex as prescribed previously for your cellulitis * Continue taking Eliquis and Metoprolol for your Atrial fibrillation. * Follow up with Cardiology in 2 weeks * Follow up with primary care doctor in 1 week and discuss your anxiety and feelings of worry. They can prescribe you medications and do proper follow up of your generalized anxiety. Patient Instructions: Antibiotic Form, Metoprolol (By mouth), Apixaban (By mouth), A-fib (Atrial Fibrillation) (GEN) Patient Language: [place] Stand Alone Forms: General Discharge Information Follow-up/Referrals: Raimundo Casey MD [Physician] - Call for Appointment Discharge Medications: New metoprolol tartrate 25 mg Tablet 25 mg PO Q12HR Qty: 60 0RF Eliquis 5 mg Tablet 5 mg PO Q12HR Qty: 30 0RF Continued atorvastatin 20 mg tablet 20 mg PO DAILY trandolapril 2 mg tablet 2 mg PO DAILY metoprolol succinate 50 mg tablet extended release 24 hr 50 mg PO DAILY hydrochlorothiazide 25 mg tablet 25 mg PO DAILY ergocalciferol (vitamin D2) 1,250 mcg (50,000 unit) capsule 1,250 mcg PO WEEKLY Rx Instructions: FRIDAYS cephalexin 500 mg capsule 500 mg PO TID Date of admission: 01/25/25 10:14 Primary Care Provider: UNKNOWN,DOCTOR Admitting Provider: Dinesh Anderson Attending physician on admission: Dinesh Anderson Condition: Improved Quality VTE Prophylaxis VTE prophylaxis: pharmacologic ordered Hospitalist MIPS Heart Failure (Exclusion) Patient has history of Heart Transplant or Left Ventricular Assistive Device?: No IF YES, STOP HERE Heart Failure (Qualifier) Patient has current or prior documentation of LVEF less than or equal to 40%, or mod/servere depressed LVSF?: No IF NO, STOP HERE
[2025-01-26] MEDS: HYDROcodone/acetaminophen (*CRX) 5-325 MG TABLET 1 TAB PO (16:36)
== END 2025-01-26 16:30 | disposition home or self-care (01) | DRG 603 ==
LOC: ANHED 11:56 → ANHIMU 15:46
PROVIDERS: Internal Medicine; Admitting Provider Internal Medicine; Emergency Provider Physician Assistant; Visit Provider Nurse Practitioner Acute Care
DX: L03.116 Cellulitis of left lower limb (principal); I48.0 Paroxysmal atrial fibrillation; E87.6 Hypokalemia; I10 Essential (primary) hypertension; E78.5 Hyperlipidemia, unspecified; M19.90 Unspecified osteoarthritis, unspecified site; I89.0 Lymphedema, not elsewhere classified; Z87.442 Personal history of urinary calculi
CPT/HCPCS: 36415; 71045; 71275; 80053; 83735; 83880; 84443; 85025; 85380; 85610; 85652; 85730; 86140; 87040; 93005; 93306; 93970; 96361; 96365; 96366; 96367; 96368; 96375; 99285; A9270; G0378; J0282; J0690; J7040; Q9967

== ENCOUNTER 2025-03-21 13:32 | Inpatient (IN) | payer OTHER, MEDICARE, SELFPAY ==
[2025-03-21] VITALS (27 sets, daily range): BP systolic 108–133; BP diastolic 67–107; PULSE 96–160; RESP 14–34; TEMP 36.7–37.2; O2SAT 95–100; BMI 40.2
--- NOTE | ~2025-03-21 | XR_ITS ---
Clinical Indication: Chest pain PA and lateral views of the chest: Comparison: 01/24/2025 Findings: The lungs are clear, without evidence of focal consolidation or pleural effusion. Cardiome diastinal silhouette is stable. Bones and soft tissues are unremarkable. Impression: Stable central venous congestive change versus pulmonary artery hypertension. No acute abnormality seen. Reviewed, dictated and finalized at [facility]. Impression: Stable central venous congestive change versus pulmonary artery hypertension. No acute abnormality seen.
--- NOTE | 2025-03-21 13:35 | ECG_ITS ---
Test Date: 2025-03-21 13:45:32 Measurements Intervals [place] Rate: 156 P: 0 SC: 0 QRS: -2 QRSD: 90 T: 263 QT: 274 QTc: 442 Interpretive Statements ATRIAL FIBRILLATION WITH RAPID VENTRICULAR RESPONSE CONSIDER ANTERIOR INFARCT, AGE INDETERMINATE INFERIOR INFARCT, AGE INDETERMINATE BORDERLINE ST-T WAVE ABNORMALITY- ANTEROLAT/HIGH LAT LEADS BASELINE ARTIFACT- I, III, AVL ABNORMAL ECG Compared to ECG 01/26/2025 00:04:24 Sinus rhythm no longer present Electronically Signed On 03-21-2025 14:00:05 CDT by Omega Borrero D.O.
--- NOTE | 2025-03-21 13:43 | ED_ITS ---
HPI - SOB/Dyspnea General Chief Complaint: Shortness of Breath/Dyspnea <Beth Schwab PA-C - Last Filed: 03/21/25 18:06> Stated Complaint: SHOB-heart rate 123 Hx- A FIB <Beth Schwab PA-C - Last Filed: 03/21/25 18:06> Time Seen by Provider: 03/21/25 13:43 <Beth Schwab PA-C - Last Filed: 03/21/25 18:06> Focused HPI: This is a 69 year old female that presents to the ER for shortness of breath ongoing over the last week. Reports fairly constant. Reports associated elevated heart rate, history of atrial fibrillation. She has been taking her metoprolol as prescribed. Reports intermittent left sided chest pain. GENERAL: Well-appearing, well-nourished, and in no acute distress. HEAD: Normocephalic, atraumatic. CHEST: Clear to auscultation. ?No respiratory distress. HEART: Irregularly irregular NEURO: ?Alert and oriented x3. Patient screened in triage and initial orders placed.? ?Additional care and disposition to be based upon?diagnostic testing and treatment. <Beth Schwab PA-C - Last Filed: 03/21/25 18:06> History of Present Illness HPI Narrative: Agree with HPI. Intermittent bouts of shortness breath palpitations a last month. Reoccur this morning. Takes metoprolol and Eliquis. <Jeromy Gracia MD - Last Filed: 03/21/25 19:15> Related Data Home Medications: Home Medications ?Medication ?Instructions ?Recorded ?Confirmed ?Last Taken ?Type atorvastatin 20 mg tablet 20 mg PO DAILY 11/26/23 03/21/25 03/21/25 History ergocalciferol (vitamin D2) 1,250 1,250 mcg PO WEEKLY 11/26/23 03/21/25 03/17/25 History mcg (50,000 unit) capsule hydrochlorothiazide 25 mg tablet 25 mg PO DAILY 11/26/23 03/21/25 03/21/25 History metoprolol succinate 50 mg 50 mg PO DAILY 11/26/23 03/21/25 01/24/25 History tablet,extended release 24 hr trandolapril 2 mg tablet 2 mg PO DAILY 11/26/23 03/21/25 03/21/25 History allopurinol 100 mg tablet 200 mg PO DAILY 03/21/25 03/21/25 03/21/25 History potassium citrate 15 mEq (1,620 15 meq PO BID 03/21/25 03/21/25 03/21/25 History mg) tablet,extended release <Beth Schwab PA-C - Last Filed: 03/21/25 18:06> Allergies/Adverse Reactions: Allergies Allergy/AdvReac Type Severity Reaction Status Date / Time doxycycline Allergy Unknown Unknown Verified 03/21/25 13:34 Sulfa (Sulfonamide Allergy Unknown Verified 03/21/25 13:34 Antibiotics) sulfamethoxazole (From Allergy Rash Verified 03/21/25 13:34 Bactrim) trimethoprim (From Bactrim) Allergy Rash Verified 03/21/25 13:34 <Beth Schwab PA-C - Last Filed: 03/21/25 18:06> Review of Systems 2 Review of Systems: All systems reviewed & are unremarkable except as noted in HPI and below <Jeromy Gracia MD - Last Filed: 03/21/25 19:15> Constitutional: Constitutional: Reports no additional constitutional complaints <Jeromy Gracia MD - Last Filed: 03/21/25 19:15> Cardiovascular: Cardiovascular: Reports no additional cardiovascular complaints <Jeromy Gracia MD - Last Filed: 03/21/25 19:15> Respiratory: Respiratory: Reports no additional respiratory complaints < Jeromy Gracia MD - Last Filed: 03/21/25 19:15> Gastrointestinal: Gastrointestinal: Reports no additional gastrointestinal complaints <Jeromy Gracia MD - Last Filed: 03/21/25 19:15> Genitourinary: Genitourinary: Reports no additional female genitourinary complaints <Jeromy Gracia MD - Last Filed: 03/21/25 19:15> [facility] Past Medical History Medical History: Medical History Kidney stone Arthritis History of hyperlipidemia Cellulitis of right leg Hypertension <Beth Schwab PA-C - Last Filed: 03/21/25 18:06> Surgical History Surgical History: Surgical History History of bunionectomy <Beth Schwab PA-C - Last Filed: 03/21/25 18:06> Family History Family History: Family History Mother Acute myocardial infarction Hypertension Father Renal failure <Beth Schwab PA-C - Last Filed: 03/21/25 18:06> Social History Social History: Social History Smoking status: Never smoker Second hand tobacco smoke exposure: No Alcohol intake: never Substance use: never Do You Feel Safe in your Home?: Yes Lack of Transportation: No Lack of Food: Never True Current Housing: I Have Housing Concerned About Future Housing: No Difficulty Paying Gas/Electric Bills: No Difficulty Paying for Meds: No Currently Unemployed: No Education: Trade/Vocational Certificate Difficulty w/ Childcare or Family Care: No Gender identity (if verbalized by the patient): Female Spiritual care concerns: No <Beth Schwab PA-C - Last Filed: 03/21/25 18:06> Exam 2 Narrative: GENERAL: Well-appearing, well-nourished, and in no acute distress. HEAD: Normocephalic, atraumatic. ENT: Mucous membranes moist. CHEST: Clear to auscultation. No respiratory distress. HEART: Irregularly irregular rate and rhythm that is tachycardic. Normal peripheral pulses. ABDOMEN: Soft, nontender, nondistended. EXTREMITIES: Normal range of motion. No edema. SKIN: Warm, dry, no rash. NEURO: Alert and oriented x3. PSYCH: Normal mood and affect. <Jeromy Gracia MD - Last Filed: 03/21/25 19:15> Course Course Emergency Course: No improvement in heart rate with metoprolol 5 mg x 3. Will start on diltiazem drip. Admit to hospitalist service. Cardiology consulted. Labs reassuring. Patient aware of diagnosis and treatment plan. <Jeromy Gracia MD - Last Filed: 03/21/25 19:15> Vital Signs Vital signs: Vital Signs Temperature 98.9 F 03/21/25 13:56 Pulse Rate 160 H 03/21/25 13:56 Respiratory Rate 14 03/21/25 13:56 Blood Pressure 117/78 03/21/25 13:56 Pulse Oximetry 97 03/21/25 13:56 Oxygen Delivery Room Air 03/21/25 13:56 Temperature 98.9 F 03/21/25 13:56 Pulse Rate 125 H 03/21/25 18:53 Respiratory Rate 14 03/21/25 16:40 Blood Pressure 133/69 03/21/25 18:21 Pulse Oximetry 100 03/21/25 16:40 Oxygen Delivery Room Air 03/21/25 14:11 <Beth Schwab PA-C - Last Filed: 03/21/25 18:06> Vital Signs Temperature 98.9 F 03/21/25 13:56 Pulse Rate 160 H 03/21/25 13:56 Respiratory Rate 14 03/21/25 13:56 Blood Pressure 117/78 03/21/25 13:56 Pulse Oximetry 97 03/21/25 13:56 Oxygen Delivery Room Air 03/21/25 13:56 Temperature 98.9 F 03/21/25 13:56 Pulse Rate 125 H 03/21/25 18:53 Respiratory Rate 14 03/21/25 16:40 Blood Pressure 133/69 03/21/25 18:21 Pulse Oximetry 100 03/21/25 16:40 Oxygen Delivery Room Air 03/21/25 14:11 <Jeromy Gracia MD - Last Filed: 03/21/25 19:15> MDM - SOB/Dyspnea Lab Data Result diagrams: 03/21/25 14:06 03/21/25 14:06 <Beth Schwab PA-C - Last Filed: 03/21/25 18:06> Labs: Lab Results 03/21/25 Range/Units 14:06 WBC 8.0 (4.5-10.0) K/mm3 RBC 3.39 L (4.2-5.4) M/mm3 Hgb 10.2 L (12.0-15.0) g/dL Hct 33.5 L (37.0-47.0) % MCV 98.8 (80-100) fl MCH 30.1 (26-34) pg MCHC 30.4 L (32-36) g/dl RDW 16.3 H (11.5-14.5) % Plt Count 210 (150-375) k/mm3 MPV 10.4 (7.4-10.4) fl Immature Gran % (Auto) 0.3 (0-0.5) % Neut % (Auto) 72.1 (45.5-73.1) % Lymph % (Auto) 16.3 L (18.3-44.2) % [place] % (Auto) 10.9 H (2.6-8.5) % Eos % (Auto) 0.3 (0-4.4) % Baso % (Auto) 0.1 L (0.2-1.2) % Lymph # (Auto) 1.30 (0.9-3.2) K/mm3 [place] # (Auto) 0.9 H (0.1-0.6) K/mm3 Eos # (Auto) 0.0 (0-0.3) K/mm3 Baso # (Auto) 0.0 (0.0-0.1) K/mm3 Abs Immat Gran (auto) 0.02 (0.00-0.031) K/mm3 Absolute Neuts (auto) 5.8 (1.3-6.7) K/mm3 Absolute Nucleated RBC 0.000 (0.0-0.012) K/mm3 Nucleated RBC % 0.0 (0.0-0.2) % PT 17.9 H (11.1-14.7) Seconds INR 1.5 APTT 31.8 (22.3-36.8) Seconds Sodium 141 (137-145) mmol/L Potassium 3.8 (3.4-5.0) mmol/L Chloride 105 (98-107) mmol/L Carbon Dioxide 27 (22-30) mmol/L Anion Gap 9 (4-12) mmol/L BUN 26 H (7-17) mg/dL Creatinine 0.87 (0.7-1.0) mg/dL Estim Creat Clear Calc 64 ml/min Estimated GFR > 60 (59 - ) Glucose 112 H (65-110) mg/dL Calcium 9.2 (8.4-10.2) mg/dL Total Bilirubin 0.6 (0.2-1.3) mg/dL AST 22 (14-36) U/L ALT 39 H (6-35) U/L Alkaline Phosphatase 97 (38-126) U/L Troponin I < 0.012 (0.000-0.034) ng/mL NT-Pro-B Natriuret Pep 2610 H (19.9-100) pg/mL Total Protein 7.0 (6.3-8.2) g/dL Albumin 4.0 (3.5-5.1) g/dL Lipase 110 (23-300) U/L <Beth Schwab PA-C - Last Filed: 03/21/25 18:06> Lab Results 03/21/25 Range/Units 14:06 WBC 8.0 (4.5-10.0) K/mm3 RBC 3.39 L (4.2-5.4) M/mm3 Hgb 10.2 L (12.0-15.0) g/dL Hct 33.5 L (37.0-47.0) % MCV 98.8 (80-100) fl MCH 30.1 (26-34) pg MCHC 30.4 L (32-36) g/dl RDW 16.3 H (11.5-14.5) % Plt Count 210 (150-375) k/mm3 MPV 10.4 (7.4-10.4) fl Immature Gran % (Auto) 0.3 (0-0.5) % Neut % (Auto) 72.1 (45.5-73.1) % Lymph % (Auto) 16.3 L (18.3-44.2) % [place] % (Auto) 10.9 H (2.6-8.5) % Eos % (Auto) 0.3 (0-4.4) % Baso % (Auto) 0.1 L (0.2-1.2) % Lymph # (Auto) 1.30 (0.9-3.2) K/mm3 [place] # (Auto) 0.9 H (0.1-0.6) K/mm3 Eos # (Auto) 0.0 (0-0.3) K/mm3 Baso # (Auto) 0.0 (0.0-0.1) K/mm3 Abs Immat Gran (auto) 0.02 (0.00-0.031) K/mm3 Absolute Neuts (auto) 5.8 (1.3-6.7) K/mm3 Absolute Nucleated RBC 0.000 (0.0-0.012) K/mm3 Nucleated RBC % 0.0 (0.0-0.2) % PT 17.9 H (11.1-14.7) Seconds INR 1.5 APTT 31.8 (22.3-36.8) Seconds Sodium 141 (137-145) mmol/L Potassium 3.8 (3.4-5.0) mmol/L Chloride 105 (98-107) mmol/L Carbon Dioxide 27 (22-30) mmol/L Anion Gap 9 (4-12) mmol/L BUN 26 H (7-17) mg/dL Creatinine 0.87 (0.7-1.0) mg/dL Estim Creat Clear Calc 64 ml/min Estimated GFR > 60 (59 - ) Glucose 112 H (65-110) mg/dL Calcium 9.2 (8.4-10.2) mg/dL Total Bilirubin 0.6 (0.2-1.3) mg/dL AST 22 (14-36) U/L ALT 39 H (6-35) U/L Alkaline Phosphatase 97 (38-126) U/L Troponin I < 0.012 (0.000-0.034) ng/mL NT-Pro-B Natriuret Pep 2610 H (19.9-100) pg/mL Total Protein 7.0 (6.3-8.2) g/dL Albumin 4.0 (3.5-5.1) g/dL Lipase 110 (23-300) U/L <Jeromy Gracia MD - Last Filed: 03/21/25 19:15> Imaging Data Radiologist's impression: ITS Impressions Chest X-Ray 03/21/25 14:46 Impression: Stable central venous congestive change versus pulmonary artery hypertension. No acute abnormality seen. <Beth Schwab PA-C - Last Filed: 03/21/25 18:06> ECG Data EKG #1: ECG completion date: 03/21/25 <Jeromy Gracia MD - Last Filed: 03/21/25 19:15> ECG completion time: 13:45 <Jeromy Gracia MD - Last Filed: 03/21/25 19:15> EKG Interpretation: tachycardia (156), atrial fibrillation, non-specific ST changes, normal QRS, normal QT and NL axis <Jeromy Gracia MD - Last Filed: 03/21/25 19:15> Critical Care Time Critical Care Time Critical Care Time: Yes <Jeromy Gracia MD - Last Filed: 03/21/25 19:15> Total Critical Care Time: 35 <Jeromy Gracia MD - Last Filed: 03/21/25 19:15> Discharge Plan Discharge Clinical Impression: Atrial fibrillation with RVR <Beth Schwab PA-C - Last Filed: 03/21/25 18:06> Patient Disposition: Still a Patient <Beth Schwab PA-C - Last Filed: 03/21/25 18:06> Condition: Serious <Beth Schwab PA-C - Last Filed: 03/21/25 18:06>
[2025-03-21 14:20] LABS: Basophils Percent Auto 0.1 % (0.2-1.2); Eosinophils Percent Auto 0.3 % (0-4.4); Hematocrit 33.5 % (37.0-47.0); Hemoglobin 10.2 g/dL (12.0-15.0); Immature Granulocyte Absolute 0.02 K/mm3 (0.00-0.031); Immature Granulocyte Percent A 0.3 % (0-0.5); Lymphocytes Percent Auto 16.3 % (18.3-44.2); Mean Corpuscular HGB Conc 30.4 g/dl (32-36); Mean Corpuscular Hemoglobin 30.1 pg (26-34); Mean Corpuscular Volume 98.8 fl (80-100); Mean Platelet Volume 10.4 fl (7.4-10.4); Monocytes Absolute Auto 0.9 K/mm3 (0.1-0.6); Monocytes Percent Auto 10.9 % (2.6-8.5); Neutrophils Absolute Auto 5.8 K/mm3 (1.3-6.7); Neutrophils Percent Auto 72.1 % (45.5-73.1); Platelet Count Result 210 k/mm3 (150-375); Red Blood Count 3.39 M/mm3 (4.2-5.4); Red Cell Distribution Width 16.3 % (11.5-14.5)
[2025-03-21] MEDS: METOPROLOL TARTRATE INJ 5 MG/5 ML VIAL IV PUSH ×3 (14:20→15:37)
[2025-03-21 14:24] LABS: Alanine Aminotransferase 39 U/L (6-35); Alkaline Phosphatase 97 U/L (38-126); Anion Gap 9 mmol/L (4-12); Aspartate Amino Transferase 22 U/L (14-36); Bilirubin,Total 0.6 mg/dL (0.2-1.3); Blood Urea Nitrogen 26 mg/dL (7-17); Calcium 9.2 mg/dL (8.4-10.2); Carbon Dioxide 27 mmol/L (22-30); Chloride 105 mmol/L (98-107); Estimated CRCL calculation 64 ml/min; Estimated Glomerular Filt Rate > 60; Glucose 112 mg/dL (65-110); Lipase 110 U/L (23-300); Potassium 3.8 mmol/L (3.4-5.0); Sodium 141 mmol/L (137-145)
[2025-03-21 14:32] LABS: INR 1.5; Prothrombin Time 17.9 Seconds (11.1-14.7)
[2025-03-21 14:33] LABS: Partial Thromboplastin Time 31.8 Seconds (22.3-36.8)
[2025-03-21 14:36] LABS: Troponin I < 0.012 ng/mL (0.000-0.034)
--- OUTSIDE RECORDS SUMMARY | 2025-03-21 14:48 | XMS_ITS | Encounter Summary ---
Author Organization [facility] Health Address [address] [place] [address] Care Team Providers Care Cloth Washer Operator Name Role Phone Razia Coles Primary Care Provider [phone] Neftaly Valerio MD Primary Care Provider [phone] Reason for Visit * Reason Onset Date Comments Congestion 10/23/2022 Encounter Details Date Type Department Care Team (Late st Contact Info) Description 10/23/2022 Telephone [facility] [address] [place] [address] [facility]es [facility] [address] [place] [phone] Congestion Social History Tobacco Use Types Packs/Day Years Used Date Smoking Tobacco: Never Smokeless Tobacco: Never Alcohol Use Standard Drinks/Week Comments No 0 (1 standard drink = 0.6 oz pur e alcohol) PHQ-2 Answer Date Recorded PHQ2 TOTAL SCORE 0 11/01/2021 Comments No Sex and Gender Information Value Date Recorded Sex Assigned at Not on file Legal Sex Female 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 Answer Date of Assessment Author No 07/04/2015 10:59 AM CDT Raul Jimenez RN * Is person blind or have serious difficulty seeing? Answer Date of Assessment Author No 07/04/2015 10:59 AM CDT Raul Jimenez RN * Does person have serious difficulty walking/climbing stairs? Answer Date of Assessment Author No 07/04/2015 10:59 AM CDT Raul Jimenez RN * Does person have difficulty dressing/bathing? Answer Date of Assessment Author No 07/04/2015 10:59 AM ANABELT Raul Jimenez RN * Does person have difficulty doing errands alone? Answer Date of Assessment Author No 07/04/2015 10:59 AM ANABLET Raul Jimenez RN documented as of this encounter Mental Status * Does person have difficulty concentrating/remembering/making decisions? Answer Entry Date Author No 07/04/2015 10:59 AM Raul Garcia RN documented in this encounter Miscellaneous Notes * Telephone Encounter - Candice Courtney RN - 10/23/2022 10:53 AM NAILING MACHINE FEEDER Images from the original note were not included. Ira Sorensen-Montserrat Triage Nurse 33 minutes ago (10:19 AM) [...] and cough suppressant to help with symptoms. ING MACHINE FEEDER documented in this encounter Plan of Treatment Upcoming Encounters Date Type Department Care Team (Late st Contact Info) Description 04/04/2025 8:15 AM CDT Office Visit [facility] - Ophthalmology [address] [place] [phone] Rupesh Sharma MD [address] DEPT [place] [phone] 04/20/2025 9:00 AM CDT Office Visit [facility] - Internal Med [facility] [facility], [place] [phone] Neftaly Valerio MD [address] [place] [address] 05/04/2025 10:00 AM CDT Office Visit [facility] - Rheumatology [address] [place] [address], [place] [phone] Gala Post APRN-[employer]UEST RELATION OFFICER [address] [place] [phone] Kenny Braun MD [address] [place] [address] [address] [place] [phone] 06/07/2025 1:50 PM CDT Office Visit [facility] - Nephrology [address] [place] [address], [place] [phone] Roxana Gallardo MD [facility] [facility] 2L [place] [address] 06/30/2025 9:40 AM CDT Office [facility] - General Dermatology [address], [facility] [address] [place] [phone] Robyn Babcock MD [facility] [facility] 3L [place] [address] 09/04/2025 9:20 AM CDT Appointment [facility] [address] [place] [phone] Josie Almonte, CARDIOLOGIST-GUEST RELATION OFFICER [address] [place] [address] DEPT [place]ICAL [place] [address] 09/13/2025 10:30 AM CDT Office Visit [facility] - Urology [address] [place] [phone] Josie Almonte APRN-GUEST RELATION OFFICER [address] [facility] DEPT OF [place]OLOGICAL [place] [address] 12/11/2025 9:00 AM NAILING MACHINE FEEDER Appointment [facility] [address] [place] [address] 03/14/2026 10:10 AM CDT [facility] - CYTOGENETIC TECHNOLOGIST [address] [place] [phone] Titus Kong MD [address] [place] [address] 03/19/2026 9:10 AM CDT Office Visit [facility] - CYTOGENETIC TECHNOLOGIST [address] [place] [phone] Titus Kong MD [address] [place] [address] documented as of this encounter Visit Diagnoses Not on filedocumented in this encounter Care Teams Cloth Washer Operator Relationship Specialty Start Date End Date Razia Coles APRN-[employer]UE[employer]ATION OFFICER [address] [place] [phone] PCP - General 11/13/21 12/07/22 Neftaly Valerio MD [address] [place] [address] PCP - General Internal Medicine 07/18/24 documented as of this encounter
--- OUTSIDE RECORDS SUMMARY | 2025-03-21 14:48 | XMS_ITS | Clinical Summary ---
Author Organization [facility] Address [address] [place] [address] Care Team Providers Care Manager Eligibility Name Role Phone Neftaly Valerio MD Primary Care Provider [phone] Source Comments [facility],non-owned Affiliates and Associated Physician Practices is amultiple site organization consisting of ambulatory clinics and hospital sitesin [place], [place] and [place]. This disclosure is being madepursuant to the Care Everywhere program and may not contain all information available regarding this patient. Last updated 18.[facility] Allergies Active Allergy Reactions Criticality Noted Date Comments Sulfa Drugs Rash Medium 11/22/2019 Sulfacetamide Rash Medium 02/14/2025 Medications * Be aware that medications may not be up to date on this document. Alwaysverify current medications with the patient. vitamin D, ergocalciferol , (Drisdol) 1.25 MG (90526 UT) capsuleIndicat ions:Vitamin D deficiency Take 1 (one) capsule by mouth every 7 days 12 capsule 1 07/20/20 24 Active hydrOXYzine HCl (Atarax) 25 MG tablet Take 1 (one) tablet by mouth 3 times daily as needed (anxiety) 30 tablet 12/08/19 25 Active Additional Information Patient not taking.Reason: Other, Reported on 03/14/2025 hydroCHLOROthi azide (Hydrodiuril) 25 MG tablet Take 1 (one) tablet by mouth once daily 90 tablet 1 01/28/20 25 Active atorvastatin (Lipitor) 20 MG tablet Take 1 (one) tablet by mouth at bedtime 90 tablet 3 02/02/20 25 Active trandolapril (Mavik) 2 MG tablet Take 1 (one) tablet by mouth at bedtime 90 tablet 3 02/02/20 25 Active oxyBUTYnin CR 24hr (Ditropan-XL) 10 MG tablet Take 1 (one) tablet by mouth once daily 90 tablet 3 02/02/20 25 Active Additional Information Patient not taking.Reason: Patient adjusted, Reported on 03/14/2025 allopurinol (Zyloprim) 100 MG tablet Take 2 (two) tablets by mouth once daily 30 tablet 02/02/20 25 Active potassium citrate ER 15 MEQ (1620 MG) tablet Take 1 (one) tablet by mouth 2 times daily 60 tablet 02/02/20 25 Active semaglutide (Wegovy) 0.25 MG/0.5ML penIndications :Obesity Inject 0.25 (one-quarter) mg subcutaneously every 7 days for 28 days, THEN 0.5 (one-half) mg every 7 days for 28 days. Reasons: OBESITY. 6 mL 02/03/20 25 025 Active Additional Information Patient not taking.Reason: Cost, Reported on 03/14/2025 metoprolol tartrate IR (Lopressor) 25 MG tablet Take 1 (one) tablet by mouth every 12 hours 180 tablet 1 02/25/20 25 Active acetaminophen (Tylenol) 500 MG tablet Take 1 (one) tablet by mouth every 4 hours as needed for Fever or Pain Maximum allowable Acetaminophen amount = 4 Grams (4000 mg) / 24 hours. Active Eliquis 5 MG tablet Take 1 (one) tablet by mouth every 12 hours 60 tablet 1 03/14/20 25 Active cephalexin (Keflex) 500 MG capsule 06/01/20 24 025 Discontin ued(Tx Complete) metoprolol tartrate IR (Lopressor) 25 MG tablet Take 1 (one) tablet by mouth every 12 hours 01/27/20 25 025 Discontin ued(Reord er) Eliquis 5 MG tablet Take 1 (one) tablet by mouth every 12 hours 60 tablet 02/10/20 25 025 Discontin ued(Reord er) Active Problems Patient Care Coordination No te Formatting of this note migh t be different from the original. Amaris Butler is coming in today for additional views due to an abnormal screening Small assymetry in the left breast. We need an order for a left diagnostic mammogram and left ltd ultrasound Please. Problem Noted Date Diagnosed Date Moderate persistent asthma without complication 03/14/2025 Mixed hyperlipidemia 02/01/2025 Hyperuricemia 02/01/2025 Left sciatic nerve pain 12/13/2024 Assessment & Plan (12/13/2024 1:51 PM FIELD CROP GROWER): - NSAIDs and tylenol as needed - Ref to physical therapy - Discussed that is likely at least somewhat contributed to by obesity, weight loss will often be helpful Prediabetes 12/13/2024 Assessment & Plan (12/13/2024 1:53 PM FIELD CROP GROWER): - Weight related complication - Check A1c - continue lifestyle changes to diet and exercise as able - Recommend GLP-1 see obesity section Preventative health care 12/13/2024 Assessment & Plan (12/13/2024 1:55 PM FIELD CROP GROWER): The 10-year ASCVD risk score (Alena LENTZ, [...] to see if at goal Bunion 12/08/2024 Cellulitis of left lower extremity 07/29/2024 Assessment & Plan (02/03/2025 3:24 PM CDT): - Recent infection diagnosed at urgent care then ended up with admission at [facility] - Appears to be resolved at this point, the leg has a very small area of lateral erythema without induration or pain - No further abx are indicated, though I did recommend she finish current dose - Leg is extremely edematous, but this is her baseline though she thinks it is worse than normal - I recommend the wraps/compression that have been recommended previously by vascular surgery and following in their clinic next week Venous insufficiency of both lower extremities 0 07/29/2024 Assessment & Plan (12/13/2024 1:58 PM FIELD CROP GROWER): - Following with vascular surgery Chronic venous stasis dermatitis of both lower e xtremities 07/29/2024 Urgency incontinence 05/02/2022 Multiple benign nevi of uppe r and lower extremities, and trunk 04/12/2019 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 Venous stasis dermatitis of both lower extremiti es 04/12/2019 Kidney stone recurrent- Uric acid 11/26/2018 Overview (02/01/2025): Stone analysis on 11/27/2018: 90% Uric ac, 8% Ca Oxalate, 2% Ca Phosphate Litholink 24 hour risk profile in 07/2024: Very low urine volume, acidic urine pH, high urine Na, SS of urine Uric Ac., high urine Sulfate Other microscopic hematuria 11/26/2018 Edema 03/17/2017 Class 2 obesity with body ma ss index (BMI) of 38.0 to 38.9 in adult 03/17/2017 Assessment & Plan (02/03/2025 3:25 PM CDT): - Has been trying to lose weight with lifestyle changes including dietary changes and exercise plan without success - C/b L sciatic nerve pain - C/b prediabetes - C/b BLE edema/venous insuff - Discussed GLP-1, patient is interested if able to obtain - Will order ozempic Assessment & Plan (12/13/2024 1:57 PM FIELD CROP GROWER): - Has been trying to lose weight [...] 09/17/2015 Assessment & Plan (12/13/2024 1:49 PM FIELD CROP GROWER): - Good control - Continue meds - [...] carcinoma (BCC) of skin Seborrheic keratoses 03/27/2014 Resolved Problems Problem Noted Date Diagnosed Date Resolved Date Rash 10/27/2019 11/24/2019 Assessment & Plan (10/27/2019 10:23 AM FIELD CROP GROWER): Based on appearance, consist with drug rash. Patient denies any new medications. Would not expect reaction of this severity from Bactrim after tolerating previously for 7 days. Based on exam, ok to stop Bactrim--would is healing well. Zyrtec 20mg daily for 3 days then 10mg daily Stop new soap Cellulitis of right lower extremity 10/27/2019 12/13/2024 Assessment & Plan (10/27/2019 10:24 AM FIELD CROP GROWER): Appears to be healing--ok to stop antibiotics based on exam--if symptoms recur, worsen or if fevers or chills, need to call office immediately Other viral warts 04/12/2019 12/13/2024 Hydronephrosis, left 11/26/2018 025 Hydroureter, left 11/26/2018 12/13/2024 Overview (06/18/2021): Passed urethral stone. Acute kidney injury 11/26/2018 10/27/20 19 Basal cell carcinoma of right upper extremity 10/25/20 18 11/26/2018 Hypercholesterolemia 11/09/2008 025 Overview (05/10/2018): Overview: Not a statin candidate by ASCVD risk score. Encounters Date Type Department Care Team Description 03/17/2025 Telephone [facility] - GI [address] [place] [address] Rigoberto Long, ADRIA Follow-up 03/14/2025 10:30 AM CDT Office Visit [facility] Physician [facility] - Internal Med [address] [place] [phone] Tachycardia (Primary Dx); Atrial fibrillation, unspecified type (HCC); Moderate persistent asthma without complication (HCC) 03/14/2025 Refill [facility] - Clinical Pharmacy [address] [place] [phone] Sandip Mejia Cristela MEDICATION REFILL 03/14/2025 Travel 03/13/2025 8:50 AM CDT Office Visit [facility] - COPIER REPAIR TECHNICIAN [address] [facility] [address] [place] [phone] Titus Kong MD Well woman exam with routine gynecological exam (Primary Dx) 03/13/2025 Travel 03/09/2025 Telephone [facility] Physician [facility] - Internal Med [address] [place] [phone] Neftaly Valerio MD Shortness of Breath 03/08/2025 Results Follow-Up [facility] Phys[facility] - Internal Med [address] [place] [phone] Neftaly Valerio MD 02/24/2025 Refill [facility] Physician [facility] - Internal Med [address] [place] [phone] Neftaly Valerio MD MEDICATION REFILL 02/15/2025 10:15 AM CDT Office Visit [facility] - Vascular Surgery [address] [place] [phone] Margot North MD Chronic venous hypertension (idiopathic) with inflammation of bilateral lower extremity (Primary Dx) 02/15/2025 Travel 02/09/2025 Refill [facility] Physician [facility] - Internal Med [address] [place] [phone] Neftaly Valerio MD MEDICATION REFILL 02/08/2025 10:30 AM CDT Office Visit [facility] Physician [facility] - Urology [facility] [facility] [address] [place] [address] Josie Almonte, ENEIDA-HELEN Kidney stone (Primary Dx); Urgency incontinence; Urinary frequency 02/08/2025 Travel 02/02/2025 4:00 PM CDT Office Visit [facility] Physician [facility] - Internal Med [address] [place] [phone] Neftaly Valerio MD Class 2 severe obesity due to excess calories with serious comorbidity and body mass index (BMI) of 39.0 to 39.9 in adult (Primary Dx); Prediabetes; Class 2 obesity with body mass index (BMI) of 38.0 to 38.9 in adult, unspecified obesity type, unspecified whether serious comorbidity present; Venous insufficiency of both lower extremities; Cellulitis of left lower extremity 02/02/2025 Travel 02/02/2025 Telephone [facility] - Internal Med [address] [place] [phone] Neftaly Valerio MD Cellulitis 02/01/2025 1:50 PM CDT Office Visit [facility] Physician [facility] - Nephrology [address] [place] [address], [place] [address] Josie Almonte, DISTANCE LEARNING UNIT LEADER-DIRECTOR OF CLINICAL APPLICATIONS Roxana Gallardo MD Essential hypertension (Primary Dx); Kidney stone; Hypercholesterolemia; Vitamin D deficiency; Kidney stone on left side; Other microscopic hematuria; Edema, unspecified type; Mixed hyperlipidemia; Prediabetes; Hyperuricemia 02/01/2025 Travel 01/27/2025 Refill [facility] Physician [facility] Internal Med [address] [place] [phone] Neftaly Valerio MD MEDICATION REFILL 01/25/2025 Telephone [facility] Internal Med [address] [place] [phone] Neftaly Valerio MD Hospital Admission; Patient Requested Call 01/23/2025 Travel 01/22/2025 Telephone [facility] - Internal Med [address] [facility] [place] [address] Melo Orr MD Advice Only; Cellulitis 01/02/2025 Travel 12/26/2024 Telephone [facility] - Internal Med [address] [facility] [place] [phone] Neftaly Valerio MD Screening Colonoscopy from Last 3 Months Immunizations Immunization Administration Dates Next Due Covid Moderna primary [...] Date Smoking Tobacco: Never Smokeless Tobacco: Never Tobacco Cessation:Counseling Given: Not Answered Alcohol Use Standard Drinks/Week Comments No 0 (1 standard drink = 0.6 oz pur e alcohol) PHQ-2 Answer Date Recorded Patient Health Questionnaire-2 Score 0 02/02/2025 Comments No Sex and Gender Information Value Date Recorded Sex Assigned at Not on file Legal Sex Female 7:34 AM FIELD CROP GROWER Gender Identity Not on file Sexual Orientation Not on file 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 Not on file Not on file Not on betina e Last Filed Vital Signs Vital Sign Reading Time Taken Comments Blood Pressure 126/79 03/14/2025 10:16 AM CDT Pulse 98 03/14/2025 10:16 AM CDT Temperature 36.7 C (98 F) 03/14/2025 10:16 AM CDT Respiratory Rate 18 02/08/2025 9:56 AM CDT Oxygen Saturation 92% 03/14/2025 10:16 AM CDT Inhaled Oxygen Concentration - - Weight 105.2 kg (232 lb) 03/14/2025 10:16 AM CDT Height 162.6 cm (5' 4 ) 03/14/2025 10:16 AM CDT Body Mass Index 39.82 03/14/2025 10:16 AM CDT Plan of Treatment Upcoming Encounters Date Type Department Care Team (Late st Contact Info) Description 04/04/2025 8:15 AM CDT Office Visit [facility] - Ophthalmology [address] [place] [phone] Rupesh Sharma MD [address] [place] [address] [place] [phone] 04/20/2025 9:00 AM CDT Office Visit [facility] - Internal Med [facility] [facility], [place] [phone] Neftaly Valerio MD [address] [place] [address] 05/04/2025 10:00 AM CDT Office Visit [facility] - Rheumatology [address] [place] [address], [place] [phone] Gala Post, DISTANCE LEARNING UNIT LEADER-DIRECTOR OF CLINICAL APPLICATIONS [address] [phone] Kenny Braun MD [address] [place] [address] [address] [place] [phone] 06/07/2025 1:50 PM CDT Office Visit [facility] - Nephrology [address] [place] [address], [place] [phone] Roxana Gallardo MD [address] [place] [address] [address] [place] [address] 06/30/2025 9:40 AM CDT Office Visit [facility] - General Dermatology [address], [facility] [address] [place] [address] Robyn Babcock MD [address] [place] [address] [address] [place] [address] 09/04/2025 9:20 AM CDT Appointment [facility] [address] [place] [phone] Josie Almonte, DISTANCE LEARNING UNIT LEADER-DIRECTOR OF CLINICAL APPLICATIONS [address] [place] [address] [place] [address] 09/13/2025 10:30 AM CDT Office Visit [facility] - Urology [address] [place] [address] Josie Almonte, DISTANCE LEARNING UNIT LEADER-DIRECTOR OF CLINICAL APPLICATIONS [address] [facility] DEPT [place] [address] 12/11/2025 9:00 AM FIELD CROP GROWER Appointment [facility] [address] [place] [address] 03/14/2026 10:10 AM CDT Office Visit [facility] - COPIER REPAIR TECHNICIAN [address] [place] [phone] Titus Kong MD [address] [place] [address] 03/19/2026 9:10 AM CDT Office Visit [facility] - COPIER REPAIR TECHNICIAN [address] [place], [place] [address] [address] [place] [phone] Titus Kong MD [address] [place] [address] Health Maintenance Due Date Last Done Comments COLON MONITORING 1956 CT COLONOGRAPHY - COLON CA SCREENING 1955 FIT - COLON CA SCREENING 1955 FLEX SIG - COLON CA SCREENING 1955 HEPATITIS B VACCINE (3 of 3 - 19+ 3-dose series) 06/17/2011 01/20/2011, 12/18/2010 Respiratory Syncytial Virus (RSV) Vaccine Pt: or over 60 yrs (1 - Risk 60-74 years 1-dose series) 2016 COLONOSCOPY - COLON CA SCREENING 01/31/2024 01/30/2014 COVID-19 VACCINE ( season) 2024 01/06/2022, 01/05/2022, 08/05/2021, Additional history exists MAMMOGRAM 12/05/2026 12/05/2024, 11/23, 12/03/2022, Additional history exists SCREENING FOR DIABETES 12/09/2027 , 12/09/2024, 08/10/2024, Additional history exists COLOGUARD (AGES 45-75) - COLON CA SCREENING 02/26/2028 02/25/2025, 02/25/2025 Colorectal Cancer Screening 02/26/2028 DTAP/TDAP/TD VACCINES (4 - Td or Tdap) [...] complete this topic MENINGOCOCCAL (Group B) VACCINE SHARED DECISION-MAKING Aged Out No longer eligible based on patient's age to complete this topic MENINGOCOCCAL GROUPS A/C/Y/W VACCINE Aged Out No longer eligible based on patient's age to complete this topic Goals Goal Patient Goal Type Associated Problems Recent Progress Patient-Stated? Author Medication Management General On track( 025 2:22 PM CDT) Shelley Sharpe RN Note: Expected end date: ongoing Interventions: Take all medications as prescribed Let your doctor know right away about any changes in your medications Make sure to request a refill of your medication at least one week prior to your last dose Medical Devices Implanted Type Area Bar Machine Operator Device Identifier Shelf Expiration Date Model / Serial / Lot Stent Uret 6fr 22cm Pgtl Crv Tpr Tip Implanted:Qty: 1 on 11/27/2018 by Luis Daniel Paz MD at [facility] Left: Ureter Glasses Direct Scimed 08/19/2021 [id number] / / [id number] Procedures Procedure Name Priority Date/Time Associated Diagnosis Comments COLOGUARD TEST Routine 02/25/2025 11:30 AM CDT Special screening for malignant neoplasms, colon HEMOGLOBIN A1C Routine 12/09/2024 12:00 PM FIELD CROP GROWER Morbid obesity Prediabetes Essential hypertension MAMMO BILAT SCREENING W JAVAN Routine 12/05/2024 10:21 AM FIELD CROP GROWER Visit for screening mammogram HEPATITIS C AB SCREEN RFLX NAAT QUANT STAT 11/26/2018 2:10 PM FIELD CROP GROWER DEXA BONE DENSITY AXIAL SKELETON Routine 01/04/2014 9:48 AM FIELD CROP GROWER from Last 3 Months or Most Recently Relevant to Health Maintenance Results * [id number] COLOGUARD TEST *Associate with Z12.11 OR Z12.12 Dx Codes* (02/25/2025 11:30 AM CDT) Cologuard Negative Negative [facility] Comment: NEGATIVE TEST RESULT. A negative Cologuard result indicates a low likelihood that a colorectal cancer (CRC) or advanced adenoma (adenomatous polyps with more advanced pre-malignant features) is present. The chance that a person with a negative Cologuard test has a colorectal cancer is less than 1 in 1500 (negative predictive value >99.9%) or has an advanced adenoma is less than 5.3% (negative predictive value 94.7%). These data are based on a prospective cross-sectional study of 10,000 individuals at average risk for colorectal cancer who were screened with both Cologuard and colonoscopy. (Gilbert Mitchell et al, N Engl J Med 2014;370(14):7087-6702) The normal value (reference range) for this assay is negative. COLOGUARD RE-SCREENING RECOMMENDATION: Periodic colorectal cancer screening is an important part of preventive healthcare for asymptomatic individuals at average risk for colorectal cancer. Following a negative Cologuard result, the [place] Cancer Society and U.S. Multi-Society Task Force screening guidelines recommend a Cologuard re-screening interval of 3 years. References: [place] [employer] Guideline for Colorectal Cancer Screening: https://www.cancer.org/cancer/hfqxf-ldvzza-bccdih/omknbcbmn-ozrjrbdym-enxxqco/ acs-recommendations.html.; Reinier DK, Mari CR, Sajan CrawfordK, Colorectal Cancer Screening: Recommendations for Physicians and Patients from the U.S. Multi-Society Task Force on Colorectal Cancer Screening , Am J Gastroenterology 2017; 112:5721-0484. TEST DESCRIPTION: Composite algorithmic analysis of stool DNA-biomarkers with hemoglobin immunoassay. Quantitative values of individual biomarkers are not reportable and are not associated with individual biomarker result reference ranges. Cologuard is intended for colorectal cancer screening of adults of either sex, 45 years or older, who are at average-risk for colorectal cancer (CRC). Cologuard has been approved for use by the U.S. FDA. The performance of Cologuard was established in a cross sectional study of average-risk adults aged 50-84. Cologuard performance in patients ages 45 to 49 years was estimated by sub-group analysis of near-age groups. Colonoscopies performed for a positive result may find as the most clinically significant lesion: colorectal cancer [4.0%', advanced adenoma (including sessile serrated polyps greater than or equal to 1cm diameter) [20%' or non- advanced adenoma [31%'; or no colorectal neoplasia [45%'. These estimates are derived from a prospective cross-sectional screening study of 10,000 individuals at average risk for colorectal cancer who were screened with both Cologuard and colonoscopy. (Gilbert Michael al, N Engl J Med 2014;370(14):6187-2158.) Cologuard may produce a false negative or false positive result (no colorectal cancer or precancerous polyp present at colonoscopy follow up). A negative Cologuard test result does not guarantee the absence of CRC or advanced adenoma (pre-cancer). The current Cologuard screening interval is every 3 years. ([place] [employer] Society and U.S. Multi-Society Task Force). Cologuard performance data in a 10,000 patient pivotal study using colonoscopy as the reference method can be accessed at the following location: www.[employer]/results. Additional description of the Cologuard test process, warnings and precautions can be found at www.[employer].com. Stool STOOL SPECIMEN / Unknown 02/25/2025 11:30 AM CDT 02/26/2025 10:22 PM CDT Neftaly Valerio MD LAB - CHEMISTRY ORDERABLES Fi nal Result Performing Organization Address City/[facility]/ZIP Co de Phone Number [employer] [address] [facility] [address] [place] [address] [employer] [address] [place] [address] * (ABNORMAL) HEMOGLOBIN A1C (12/09/2024 12:00 PM FIELD CROP GROWER) Hemoglobin A1c 5.8(H) 4.8 - 5.6 % [facility] INSURANCE BILL Comment: Prediabetes: 5.7 - 6.4 Diabetes: >6.4 Glycemic control for adults with diabetes: <7.0 Blood BLOOD SPECIMEN / Unknown 12/09/2024 12:00 PM FIELD CROP GROWER 12/09/2024 Narrative [facility] INSURANCE BILL - 12/10/2024 9:09 AM FIELD CROP GROWER Performed at: [address] [place] [id number] Roll Grinder Operator: Amadou Mckeon PhD, Phone: [phone] Neftaly Valerio MD LAB - CHEMISTRY ORDERABLES Fi nal Result Performing Organization Address [facility] Co de Phone Number [facility] INSURANCE BILL [address] [place] [address] * Mammo Bilat Screening W Javan (12/05/2024 10:21 AM FIELD CROP GROWER) Anatomical Region Laterality Modality Breast Bilateral Mammography 12/05/2024 2:10 PM FIELD CROP GROWER Impressions 12/05/2024 2:18 PM FIELD CROP GROWER IMPRESSION: No mammographic evidence of malignancy in either breast. ASSESSMENT: BIRADS Category 1: Negative mammogram. RECOMMENDATION: Bilateral screening mammogram in one year. Thank you for allowing us to participate in the care of your patient. [facility] Breast Care utilizes [employer] as a reminder system to notify patients of their next recommended mammogram. > Interpreting Provider: Vanessa Vazquez MD on 12/05/2024 2:18 PM Narrative 12/05/2024 2:18 PM FIELD CROP GROWER EXAMINATION: Digital screening mammogram. Low-dose full-field digital [...] prior examination. Neftaly Valerio MD MAMMO ORDERABLES Final Result * HEPATITIS C AB SCREEN RFLX NAAT QUANT (11/26/2018 2:10 PM FIELD CROP GROWER) Hepatitis C Antibody Non-react muna Non-reac tive 11/26/2018 2:57 PM FIELD CROP GROWER [facility] Comment: Hepatitis C Antibody screen indicates no serologic evidence of past or current infection with Hepatitis C Virus. Patients with unexplained liver disease who are immunocompromised or suspected of having acute Hepatitis C infection may benefit from Nucleic Acid Test (CHELI) for Hepatitis C Viral RNA to confirm Hepatitis C status. Blood BLOOD SPECIMEN / Unknown Venipuncture / Unknown 11/26/2018 2:10 PM FIELD CROP GROWER 11/26/2018 2:15 PM FIELD CROP GROWER Joycelyn Mann DISTANCE LEARNING UNIT LEADER-DIRECTOR OF CLINICAL APPLICATIONS LAB - CHEMISTRY ORDERABL ES Final Result Performing Organization Address City/State/[facility] Co de Phone Number [address] [phone] * DEXA BONE DENSITY AXIAL SKELETON (01/04/2014 9:48 AM FIELD CROP GROWER) Anatomical Region Laterality Modality Other Narrative 01/04/2014 3:43 PM FIELD CROP GROWER Examination: Dual energy x-ray absorptiometry of the lumbar spine and hip. Clinical Indication: Postmenopausal, fracture right foot. Findings: Detailed data from the exam is sent separately to the ordering physician and is also available on Barcoding, the Radiology Department's computerized picture archive system [...] Cervantes M.D. on 01/04/2014 3:22 PM . I, Dr. AFSANEH MCFADDEN D.O. have personally reviewed and interpreted this examination/study. This report was electronically signed by AFSANEH MCFADDEN D.O. on 01/04/2014 3:43 PM . Procedure Note Afsaneh Mcfadden, - 02/20/2018 Examination: Dual energy x-ray absorptiometry of the lumbar spine andhip. Clinical Indication: Postmenopausal, fracture right foot. Findings: Detailed data from the exam is sent separately to the orderingphysician and is also available on Barcoding, the Radiology Department'[employer] picture archive system SUMMARY: No prior study [...] Cervantes M.D. on 01/04/2014 3:22 PM . I, Dr. AFSANEH MCFADDEN D.O. have personally reviewed and interpreted thisexamination/study. This report was electronically signed by AFSANEH MCFADDEN D.O. on 01/04/20143:43 PM . Emilia Hernandez DISTANCE LEARNING UNIT LEADER-DIRECTOR OF CLINICAL APPLICATIONS DEXA ORDERABLES Fin al Result from Last 3 Months or Most Recently Relevant to Health Maintenance Insurance T Advance Directives * Full Code (Latest Code Status on File) Date Activated Date Inactivated Comments 11/26/2018 5:01 PM 11/27/2018 5:02 PM Care Teams Manager Eligibility Relationship Specialty Start Date End Date Neftaly Valerio MD [address] [place] [address] PCP - General Internal Medicine 07/18/24
--- OUTSIDE RECORDS SUMMARY | 2025-03-21 14:48 | XMS_ITS | Encounter Summary ---
Author Organization [facility] Address [address] [facility] [place] [address] Care Team Providers Care Financial Services Officer Name Role Phone Emilia Hernandez NUMERICAL CONTROL ROUTER OPERATOR-[facility] Primary Care Provi scarlett Edgar Watson MD Primary Care Provider [phone] Emilia Hernandez NUMERICAL CONTROL ROUTER OPERATOR-[facility] Primary Care Provi scarlett Razia Coles NUMERICAL CONTROL ROUTER OPERATOR-[facility] Primary Care Provider [phone] Neftaly Valerio MD Primary Care Provider [phone] Encounter Details Date Type Department Care Team (Late st Contact Info) Description 01/28/2021 Telemedicine [facility] General Internal Medicine [address] [place] [address], [place] [phone] Emilia Hernandez, NUMERICAL CONTROL ROUTER OPERATOR-[address] [place] [phone] Social History Tobacco Use Types Packs/Day Years Used Date Smoking Tobacco: Never Smokeless Tobacco: Never Alcohol Use Standard Drinks/Week Comments No 0 (1 standard drink = 0.6 oz pur e alcohol) Comments No Sex and Gender Information Value Date Recorded Sex Assigned at Not on file Legal Sex Female 7:34 AM COMMUNITY HEALTH NURSE Gender Identity Not on file Sexual Orientation Not on file 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 Answer Entry Date Author No 07/04/2015 10:59 AM Raul Garcia RN documented in this encounter Plan of Treatment Upcoming Encounters Date Type Department Care Team (Late st Contact Info) Description 04/04/2025 8:15 AM CDT Office Visit [facility] - Ophthalmology [address] [place] [address] Rupesh Sharma MD [address] [place] [address] [place] [address] 04/20/2025 9:00 AM CDT Office Visit [facility] - Internal Med [address] [place] [phone] Neftaly Valerio MD [facility] [place] [address] 05/04/2025 10:00 AM CDT Office Visit [facility] - Rheumatology [address] [place] [phone] Gala Post APRN[address] [place] [address] Kenny Braun MD [address] [facility] 2L [place] [phone] 06/07/2025 1:50 PM CDT Office Visit [facility] - Nephrology [address] [facility], [place] [address] Roxana Gallardo MD [address] [facility] 2L [place] [address] 06/30/2025 9:40 AM CDT Office Visit [facility] - General Dermatology [address] [place] [phone] Robyn Babcock MD [address] [facility] 3L [place] [address] 09/04/2025 9:20 AM CDT Appointment [facility] CAT SCAN [address] [place] [phone] Josie Almonte, NUMERICAL CONTROL ROUTER OPERATOR-IT ANALYST [address] [facility] DE[place] [address] 09/13/2025 10:30 AM CDT Office Visit [facility] - Urology [address] [place] [phone] Josie Almonte, NUMERICAL CONTROL ROUTER OPERATOR-IT ANALYST [address] [facility] [place]PT [place] [address] 12/11/2025 9:00 AM COMMUNITY HEALTH NURSE Appointment [facility] Breast Care [address] [place] [address] 03/14/2026 10:10 AM CDT Office Visit [facility] - DEPARTMENT HEAD [address] [place] [address] Titus Kong MD [address] [place] [address] 03/19/2026 9:10 AM CDT Office Visit [facility] - DEPARTMENT HEAD [address] [place] [address] Titus Kong MD [address] [place] [address] documented as of this encounter Visit Diagnoses Not on filedocumented in this encounter Care Teams Financial Services Officer Relationship Specialty Start Date End Date Emilia Hernandez NUMERICAL CONTROL ROUTER OPERATOR-IT ANALYST PCP - General 04/30/18 06/17/21 Edgar Watson MD [address] [facility] 2L DIV [place] [address] PCP - General 06/18/21 07/16/21 Emilia Hernandez, NUMERICAL CONTROL ROUTER OPERATOR-IT ANALYST [address] 2L DIV [place] [address] PCP - General 07/17/21 11/12/21 Razia Coles, NUMERICAL CONTROL ROUTER OPERATOR-IT ANALYST [address] [place] [address] PCP - General 11/13/21 12/07/22 Neftaly Valerio MD [address] [place] [address] PCP - General Internal Medicine 07/18/24 documented as of this encounter
--- OUTSIDE RECORDS SUMMARY | 2025-03-21 14:48 | XMS_ITS | Encounter Summary ---
Author Organization [facility] Address [address] [facility] [place] [address] Care Team Providers Care Gamma Ray Operator Name Role Phone Razia Coles Primary Care Provider [phone] Neftaly Valerio MD Primary Care Provider [phone] Reason for Visit * Reason Onset Date Comments Appointment 06/05/2022 Encounter Details Date Type Department Care Team (Late st Contact Info) Description 06/05/2022 Telephone [facility] [address] [place] [address] Razia Coles APRN-SPEECH LANGUAGE PATHOLOGIST TRAVEL [address] [place] [phone] Appointment Social History Tobacco Use Types Packs/Day Years Used Date Smoking Tobacco: Never Smokeless Tobacco: Never Alcohol Use Standard Drinks/Week Comments No 0 (1 standard drink = 0.6 oz pur e alcohol) PHQ-2 Answer Date Recorded PHQ2 TOTAL SCORE 0 11/01/2021 Comments No Sex and Gender Information Value Date Recorded Sex Assigned at Not on file Legal Sex Female 7:34 AM DYE RANGE OPERATOR CLOTH Gender Identity Not on file Sexual Orientation Not on file 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 Answer Entry Date Author No 07/04/2015 10:59 AM ANABELT Raul Jimenez RN documented in this encounter Miscellaneous Notes * Telephone Encounter - Yarelis Lockett - 06/05/2022 3:58 PM CDT Current Provider name: LACEY Reason for call: Patient Amaris uBtler called into the [facility] scheduling line requesting to schedule a appointment with . Would the scheduling team reach out to the patient to r/s her bumped appt from 07/25/2022 if possible? Patient Call Back number: [phone] documented in this encounter Plan of Treatment Upcoming Encounters Date Type Department Care Team (Late st Contact Info) Description 04/04/2025 8:15 AM CDT Office Visit [facility] - Ophthalmology [address] [place] [phone] Rupesh Sharma MD [address] [place] [address] DEPT [place] [address] 04/20/2025 9:00 AM CDT Office Visit [facility] - Internal Med [address] [place] [phone] Neftaly Valerio MD [address] [place] [address] 05/04/2025 10:00 AM CDT Office Visit [facility] - Rheumatology [address] [place] [address], [place] [phone] SincereGala, SURFACE GRINDER TENDER-SPEECH LANGUAGE PATHOLOGIST TRAVEL [address] [address] Kenny Braun MD [address] [place] [address] 2L [place] [address] 06/07/2025 1:50 PM CDT [facility] Neph[facility] [address] [place] [address] [place] [address] Roxana Gallardo MD [address] [place] [address] 2L [place] [address] 06/30/2025 9:40 AM CDT [facility] General Dermatology [address] [place] [address] Robyn Babcock MD [address] [place] [address] 3L [place] [address] 09/04/2025 9:20 AM CDT Appointment [facility] CAT SCAN [address] [place] [phone] Josie Almonte, SURFACE GRINDER TENDER-SPEECH LANGUAGE PATHOLOGIST TRAVEL [address] [place] [address] DEPT [place]ICAL [place] [address] 09/13/2025 10:30 AM CDT Office Visit [facility] - Urology [address] [place] [phone] Josie Almonte, SURFACE GRINDER TENDER-SPEECH LANGUAGE PATHOLOGIST TRAVEL [address] [place] [address] DEPT [place]ICAL [place] [address] 12/11/2025 9:00 AM DYE RANGE OPERATOR CLOTH Appointment [facility] [address] [place] [address] 03/14/2026 10:10 AM CDT Office Visit [facility]ician Group - WEATHER ALGORITHM SCIENTIST [address] [place] [address] Titus Kong MD [address] [place] [address] 03/19/2026 9:10 AM CDT Office Visit [facility]ician Group - WEATHER ALGORITHM SCIENTIST [address] [place] [address] Titus Kong MD [address] [place] [address] documented as of this encounter Visit Diagnoses Not on filedocumented in this encounter Care Teams Gamma Ray Operator Relationship Specialty Start Date End Date Razia Coles APRN-SPEECH LANGUAGE PATHOLOGIST TRAVEL [address] [place] [address] PCP - General 11/13/21 12/07/22 Neftaly Valerio MD [address] [place] [address] PCP - General Internal Medicine 07/18/24 documented as of this encounter
--- OUTSIDE RECORDS SUMMARY | 2025-03-21 14:48 | XMS_ITS | Encounter Summary ---
Author Organization [facility] Address [address] [facility] [place] [address] Care Team Providers Care Psychotherapist Name Role Phone Emilia Hernandez LAST PUTTER AWAY-CO PILOT Primary Care Provi scarlett Edgar Watson MD Primary Care Provider [phone] Emilia Hernandez LAST PUTTER AWAY-CO PILOT Primary Care Provi scarlett Razia Coles LAST PUTTER AWAY-CO PILOT Primary Care Provider [phone] Neftaly Valerio MD Primary Care Provider [phone] Reason for Visit * Reason Onset Date Comments Future Appointment 02/09/2020 Encounter Details Date Type Department Care Team (Late st Contact Info) Description 02/09/2020 Telephone [facility] General Internal Medicine [address] [address] Emilia Hernandez, LAST PUTTER AWAY-CO PILOT [address] OF [facility] [place] [phone] Future Appointment Social History Tobacco Use Types Packs/Day Years Used Date Smoking Tobacco: Never Smokeless Tobacco: Never Alcohol Use Standard Drinks/Week Comments No 0 (1 standard drink = 0.6 oz pur e alcohol) Comments No Sex and Gender Information Value Date Recorded Sex Assigned at Not on file Legal Sex Female 7:34 AM DIAGNOSTIC ASSISTANT Gender Identity Not on file Sexual Orientation Not on file 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 Not [...] 10:59 AM ANABELT Raul Jimenez RN documented as of this [...] population Agreed to move appt Transferred to [facility] documented in this encounter Plan of Treatment Upcoming Encounters Date Type Department Care Team (Late st Contact Info) Description 04/04/2025 8:15 AM CDT Office Visit [facility] - Ophthalmology [address] [place] [phone] Rupesh Sharma MD [address] [place] [address] [place] [address] 04/20/2025 9:00 AM CDT Office Visit [facility] - Internal Med [address] [place] [address] [place] [phone] Neftaly Valerio MD [address] [place] [address] 05/04/2025 10:00 AM CDT Office Visit [facility] - Rheumatology [facility] [facility] [place] [phone] Gala Post, LAST PUTTER AWAY-CO PILOT [address] [address] Kenny Braun MD [address] [place] [address] 2L [place] [phone] 06/07/2025 1:50 PM CDT Office Visit [facility] Group - Nephrology [address] [place] [address], [place] [phone] Roxana Gallardo MD [address] [place] [address] 2L [place] [address] 06/30/2025 9:40 AM CDT [facility] General Dermatology [address] [place] [phone] [place] [address] [place] [address] 3L [place] [address] 09/04/2025 9:20 AM CDT Appointment [facility] CAT SCAN [address] [place] [phone] Josie Almonte, LAST PUTTER AWAY-CO PILOT [address] [place] [address] [place] [address] 09/13/2025 10:30 AM CDT [facility] Urology [address] [place] [address] Josie Almonte, LAST PUTTER AWAY-CO PILOT [address] [facility] DEPT [place] [address] 12/11/2025 9:00 AM DIAGNOSTIC ASSISTANT Appointment [facility] Breast Care [address] [place] [address] 03/14/2026 10:10 AM CDT Office Visit [facility] - MEXICAN FOOD MAKER HAND [address] [place] [address] Titus Kong MD [address] [place] [address] 03/19/2026 9:10 AM CDT Office Visit [facility] Physician Group - MEXICAN FOOD MAKER HAND [address] [place] [address] Titus Kong MD [address] [place] [address] documented as of this encounter Visit Diagnoses Not on filedocumented in this encounter Care Teams Psychotherapist Relationship Specialty Start Date End Date Emilia Hernandez APRN-CO PILOT PCP - General 04/30/18 06/17/21 Edgar Watson MD [address] [facility] 2L DIV [place] [address] PCP - General 06/18/21 07/16/21 Emilia Hernandez APRN-CO PILOT [address] [facility] 2L DIV [place] [address] PCP - General 07/17/21 11/12/21 Razia Coles LAST PUTTER AWAY-CO PILOT [address] [place] [address] PCP - General 11/13/21 12/07/22 Neftaly Valerio MD [address] [place] [address] PCP - General Internal Medicine 07/18/24 documented as of this encounter
--- OUTSIDE RECORDS SUMMARY | 2025-03-21 14:48 | XMS_ITS | Clinical Summary ---
Author Organization [facility] Address [facility] [place] [address] Care Team Providers Care Cleaner Operator Name Role Phone Neftaly Sanchez MD Primary Care Provider [phone] Allergies Active Allergy Reactions Criticality Noted Date Comments Sulfa Rash Medium 02/14/2025 Unclassified Drug Rash Medium 11/22/2019 Medications hydroCHLOROthia zide (HYDRODIURIL) 25 mg tablet Take 1 tablet (25 mg total) by mouth daily 12/30/2020 Active trandolapriL (MAVIK) 2 mg tablet Take 1 tablet (2 mg total) by mouth daily 01/13/2021 Active atorvastatin (LIPITOR) 20 mg tablet Take 1 tablet (20 mg total) by mouth daily 04/13/2021 Active ergocalciferol (VITAMIN D) 50,000 unit capsule TAKE 1 CAPSULE BY MOUTH ONCE A WEEK 04/13/2021 Active metoprolol tartrate (LOPRESSOR) 25 mg immediate release tablet Take 1 tablet (25 mg total) by mouth every 12 (twelve) hours 01/26/2025 Active allopurinoL (ZYLOPRIM) 100 mg tablet Take 2 tablets (200 mg total) by mouth daily 02/01/2025 Active Eliquis 5 mg tablet 02/09/2025 Active oxyBUTYnin XL (DITROPAN-XL) 10 mg 24 hr tablet Take 1 tablet (10 mg total) by mouth daily 02/01/2025 Active Active Problems Problem Noted Date Diagnosed Date Mixed hyperlipidemia 05/13/2021 Lipid screening 02/26/2021 Other chest pain 02/25/2021 Essential hypertension 02/25/2021 BMI 40.0-44.9, adult 02/25/2021 Encounters Date Type Department Care Team Description 03/08/2025 Telephone [facility] Medical [facility] Cardiology [address] [place] [address] [place] [phone] Raimundo Casey MD 02/14/2025 9:00 AM CDT Office Visit [facility] Cardiology [address] [place] [address] [place] [phone] Kaley Weaver NP Paroxysmal atrial fibrillation (HCC) (Primary Dx); Essential hypertension; Class 2 severe obesity due to excess calories with serious comorbidity and body mass index (BMI) of 37.0 to 37.9 in adult (HCC); Encounter for anticoagulation discussion and counseling; Hospital discharge follow-up 02/02/2025 Orders Only [facility] Cardiology [address] [place] [address] [place] [phone] Mookie Owens MD 01/26/2025 Telephone [facility] Cardiology [address] [place] [address] [place] [phone] Mookie Owens MD from Last 3 Months Surgical History Surgery Date Site/Laterality Comments BUNIONECTOMY [...] Tobacco: Never Tobacco Cessation:Counseling Given: Not Answered Comments Unknown Sex and Gender Information Value Date Recorded Sex Assigned at Not on file Legal Sex Female 3:06 PM CDT Gender Identity Not on file Sexual Orientation Not on file Obstetrics History Last Filed Vital Signs Vital Sign Reading Time Taken Comments Blood Pressure 110/62 02/14/2025 9:19 AM CDT Pulse 67 02/14/2025 9:19 AM CDT Temperature - - Respiratory Rate - - Oxygen Saturation 95% 02/14/2025 9:19 AM CDT Inhaled Oxygen Concentration - - Weight 100.2 kg (221 lb) 02/14/2025 9:19 AM CDT Height 162.6 cm (5' 4 ) 02/14/2025 9:19 AM CDT Body Mass Index 37.93 02/14/2025 9:19 AM CDT Plan of Treatment Health Maintenance Due Date Last Done Comments Colon Cancer Screening-Colonoscopy 1955 Depression Screening 1955 Fall Risk Assessment 1955 Hepatitis C Screening 1955 Pneumococcal vaccine 65+ (1 of 1 - PCV) 2006 Osteoporosis Screening-Bone Density Scan 01/04/2016 01/04/2014, 01/04/2014 Well Visit 65+ 2021 Covid-19 Vaccine (4 - 2023-2 5 season) 2024 01/05/2022, 08/05/2021, 07/08/2021 Breast Cancer Screening-Mammogram 12/05/2025 12/05/2024, 12/05/2024, 12/04/2023, Additional history exists DTaP/Tdap/Td Vaccine (4 - Td or Tdap) 09/17/2034 09/17/2024, 08/15/2019, 11/09/2008 Hepatitis B Screening Completed 01/20/2011, 011 Zoster Vaccine Completed 12/11/2022, 09/13/2022 Influenza Vaccine Completed 09/28/2024, , 08/23/2018, Additional history exists Procedures Procedure Name Priority Date/Time Associated Diagnosis Comments CARDIOLOGY DOCUMENT SCAN Routine 025 12:32 PM GI ASST from Last 3 Months Results * Cardiology Document Scan (01/26/2025 12:32 PM GI ASST) Anatomical Region Laterality Modality Other Mookie Owens MD CV CARDIAC SERVICES PROCEDURES F inal Result from Last 3 Months Insurance [facility] CHOICE PLUS [facility] [facility] Care Teams Cleaner Operator Relationship Specialty Start Date End Date Neftaly Sanchez MD [address] [phone] PCP - General General Surgery 02/14/25
--- OUTSIDE RECORDS SUMMARY | 2025-03-21 14:48 | XMS_ITS | Encounter Summary ---
Author Organization [facility] Address [address] [facility] [facility] [place] [address] Care Team Providers Care Central Supply Supervisor Name Role Phone Emilia Hernandez APRN-AUTISM SPECIALIST Primary Care Provi scarlett Edgar Watson MD Primary Care Provider Emilia Hernandez LIFE SKILLS TRAINER-AUTISM SPECIALIST Primary Care Provi scarlett Razia Coles LIFE SKILLS TRAINER-AUTISM SPECIALIST Primary Care Provider [phone] Neftaly Valerio MD Primary Care Provider [phone] Reason for Visit * Reason Onset Date Comments Results 10/27/2018 Results 10/28/2018 1st attempt to c ontact pt with results LM Results 11/05/2018 2nd attempt to c ontact pt with results LM Results 11/11/2018 3rd attempt to c ontact pt with results LM Encounter Details Date Type Department Care Team (Late st Contact Info) Description 10/27/2018 Telephone [facility] General Internal Medicine [address] [address] Emilia Hernandez, LIFE SKILLS TRAINER-AUTISM SPECIALIST [address] OF [place] [phone] Results; Results (1st attempt to contact pt [...] on file Legal Sex Female 7:34 AM SENIOR MICROSOFT NET DEVELOPER Gender Identity Not on file Sexual Orientation Not on file 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 Answer Date of Assessment Author No 07/04/2015 10:59 AM Raul Garcia RN * Is person blind or have serious difficulty seeing? Answer Date of Assessment Author No 07/04/2015 10:59 AM Raul Garcia RN * Does person have serious difficulty walking/climbing stairs? Answer Date of Assessment Author No 07/04/2015 10:59 AM Raul Garcia RN * Does person have difficulty dressing/bathing? Answer Date of Assessment Author No 07/04/2015 10:59 AM Raul Garcia RN * Does person have difficulty doing errands alone? Answer Date of Assessment Author No 07/04/2015 10:59 AM Raul Garcia RN documented as of this encounter Mental Status * Does person have difficulty concentrating/remembering/making decisions? Answer Entry Date Author No 07/04/2015 10:59 AM Raul Garcia RN documented in this encounter Miscellaneous Notes * Telephone Encounter - Emilia Hernandez APRN-CNP - 11/11/2018 9:35 AM SENIOR MICROSOFT NET DEVELOPER Letters with mammogram results come from mammography department. She should have received by now. ELZA Faith OR MICROSOFT NET DEVELOPER * Telephone Encounter - Kathleen Medina - 11/11/2018 9:08 AM CST Please advise if a letter with results should be sent to patient. OR MICROSOFT NET DEVELOPER * Telephone Encounter - Kathleen Medina - 11/11/2018 9:08 AM CST 3rd attempt to contact patient and notify of mammogram results and unable to reach at this time. ? Left message @ [phone]??with affiliation and contact number, , no pertient patientinformation left on voicemail. ? TERRY Hernandez's Message Please tell her they were negative. ELZA Faith OR MICROSOFT NET DEVELOPER * Telephone Encounter - Kathleen Medina - 11/05/2018 11:46 AM CST 2nd attempt to contact patient and notify of mammogram results and unable to reach at this time. ?? Left message @ [phone] with affiliation and contact number, , no pertient patient information left on voicemail. ?? Will re attempt at a later time ?? TERRY Hernandez's Message Please tell her they were negative. ELZA Faith OR MICROSOFT NET DEVELOPER * Telephone Encounter - Kathleen Medina - 10/28/2018 12:33 PM CST 1st attempt to contact patient and notify of mammogram results and unable to reach at this time. Left message @ [phone] with affiliation and contact number, , no pertient patient information left on voicemail. Will re attempt at a later time GRANITE COUNTERTOP INSTALLER Mary's Message Please tell her they were negative. ELZA Faith OR MICROSOFT NET DEVELOPER * Telephone Encounter - Emilia Hernandez APRN-CNP - 10/27/2018 4:13 PM SENIOR MICROSOFT NET DEVELOPER Please tell her they were negative. ELZA Faith OR MICROSOFT NET DEVELOPER * Telephone Encounter - Fidelina Lamjuliánheather - 10/27/2018 2:28 PM CST Pt Amaris Butler Pt called to get the results of her mammogram, Thank you very much Ansone OR MICROSOFT NET DEVELOPER documented in this encounter Plan of Treatment Upcoming Encounters Date Type Department Care Team (Late st Contact Info) Description 04/04/2025 8:15 AM CDT Office Visit [facility] - Ophthalmology [address] [place] [phone] Rupesh Sharma MD [address] [place] [address] [place] [phone] 04/20/2025 9:00 AM CDT Office Visit [facility] - Internal Med [address] [place] [phone] Neftaly Valerio MD [facility] [place] [address] 05/04/2025 10:00 AM CDT Office Visit [facility] - Rheumatology [address] [place] [phone] Gala Post APRN-AUTISM SPECIALIST [address] [place] [phone] Kenny Braun MD [address] [place] [address] [place] [phone] 06/07/2025 1:50 PM CDT Office Visit [facility] - Nephrology [address] [place] [address] [place] [phone] Roxana Gallardo MD [address] [place], [place] [address] 2L [place] [address] 06/30/2025 9:40 AM CDT Office Visit [facility] - General Dermatology [address] [place] [phone] Robyn Babcock MD [address] [facility] 3L [place] [address] 09/04/2025 9:20 AM CDT Appointment [facility] CAT SCAN [address]01 [place] [address] Josie Almonte, LIFE SKILLS TRAINER-AUTISM SPECIALIST [address] [facility] [place] [address] 09/13/2025 10:30 AM CDT [facility] [address] [place] [phone] Josie Almonte, LIFE SKILLS TRAINER-AUTISM SPECIALIST [address] [facility] DEPT [place] [address] 12/11/2025 9:00 AM SENIOR MICROSOFT NET DEVELOPER Appointment [facility] Breast Care [address] [place] [address] 03/14/2026 10:10 AM CDT [facility] - COURT SPECIALIST [address] [place] [address] Titus Kong MD [address] [address] 03/19/2026 9:10 AM CDT [facility] - COURT SPECIALIST [address] [place] [phone] Titus Kong MD [address] [address] documented as of this encounter Visit Diagnoses Not on filedocumented in this encounter Care Teams Central Supply Supervisor Relationship Specialty Start Date End Date Emilia Hernandez LIFE SKILLS TRAINER-AUTISM SPECIALIST PCP - General 04/30/18 06/17/21 Edgar Watson MD [address] [facility] 2L DIV [place] [address] PCP - General 06/18/21 07/16/21 Emilia Hernandez APRN-AUTISM SPECIALIST [address] [facility] 2L DIV OF [facility] [place] [phone] PCP - General 07/17/21 11/12/21 Razia Coles, LIFE SKILLS TRAINER-AUTISM SPECIALIST [address] [place] [phone] PCP - General 11/13/21 12/07/22 Neftaly Valerio MD [address] [place] [address] PCP - General Internal Medicine 07/18/24 documented as of this encounter
--- OUTSIDE RECORDS SUMMARY | 2025-03-21 14:48 | XMS_ITS | Encounter Summary ---
Author Organization [facility] Address [address] [place] [address] Care Team Providers Care Radio Recorder Name Role Phone Emilia Hernandez MEAT PASSER-ABRASIVE GRINDER Primary Care Provi scarlett Edgar Watson MD Primary Care Provider [phone] Emilia Hernandez MEAT PASSER-ABRASIVE GRINDER Primary Care Provi scarlett Razia Coles MEAT PASSER-ABRASIVE GRINDER Primary Care Provider [phone] Neftaly Valerio MD Primary Care Provider [phone] Encounter Details Date Type Department Care Team (Late st Contact Info) Description 12/01/2018 Telephone [facility] Urology [address] [place] [address] Luis Daniel Paz MD [address] [place] [phone] Social History Tobacco Use Types Packs/Day Years Used Date Smoking Tobacco: Never Smokeless Tobacco: Never Alcohol Use Standard Drinks/Week Comments No 0 (1 standard drink = 0.6 oz pur e alcohol) Comments No Sex and Gender Information Value Date Recorded Sex Assigned at Not on file Legal Sex Female 7:34 AM OIL AND GAS RECRUITER Gender Identity Not on file Sexual Orientation Not on file 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 Answer Date of Assessment Author No 07/04/2015 10:59 AM ANABELT Raul Jimenez RN * Is person blind [...] Answered all questions. Info mailed to home AND GAS RECRUITER documented in this encounter Plan of Treatment Upcoming Encounters Date Type Department Care Team (Late st Contact Info) Description 04/04/2025 8:15 AM CDT Office Visit [facility] - Ophthalmology [address] [place] [phone] Rupesh Sharma MD [address] [place] [address] DE[place] [phone] 04/20/2025 9:00 AM CDT [facility] [address] [place] [phone] Neftaly Valerio MD [facility] [place] [address] 05/04/2025 10:00 AM CDT Office Visit [facility] - Rheumatology [address] [place] [address], [place] [phone] SincereGala, MEAT PASSER-ABRASIVE GRINDER [address] [address] Kenny Braun MD [address] [place] [address] 2L [place] [address] 06/07/2025 1:50 PM CDT [facility] Nephrology [address] [place] [address] [place] [phone] Roxana Gallardo MD [address] [place] [address] 2L [place] [address] 06/30/2025 9:40 AM CDT [facility] General Dermatology [address], [address] [place] [address] Robyn Babcock MD [address] [place] [address] 3L [place] [address] 09/04/2025 9:20 AM CDT Appointment [facility] CAT SCAN [address] [place] [phone] Josie Almonte, MEAT PASSER-ABRASIVE GRINDER [address] [place] [address] DEPT [place] [address] 09/13/2025 10:30 AM CDT Office Visit [facility] - Urology [address] [place] [phone] Josie Almonte, MEAT PASSER-ABRASIVE GRINDER [address] [place] [address] DEPT [place] [address] 12/11/2025 9:00 AM OIL AND GAS RECRUITER Appointment [facility] Breast Care [address] [place] [address] 03/14/2026 10:10 AM CDT Office Visit [facility] - MANAGER INTEGRATED [address] [place] [address] Titus Kong MD [address] [place] [address] 03/19/2026 9:10 AM CDT Office Visit [facility] - MANAGER INTEGRATED [address] [facility] [address] [place] [address] Titus Kong MD [address] [place] [address] documented as of this encounter Visit Diagnoses Not on filedocumented in this encounter Care Teams Radio Recorder Relationship Specialty Start Date End Date Emilia Hernandez MEAT PASSER-ABRASIVE GRINDER PCP - General 04/30/18 06/17/21 Edgar Watson MD [address] [facility] 2L DIV [place] [address] PCP - General 06/18/21 07/16/21 Emilia Hernandez MEAT PASSER-ABRASIVE GRINDER [address] [facility] DIV [place] [address] PCP - General 07/17/21 11/12/21 Razia Coles MEAT PASSER-ABRASIVE GRINDER [address] [place] [address] PCP - General 11/13/21 12/07/22 Neftayl Valerio MD [address] [place] [address] PCP - General Internal Medicine 07/18/24 documented as of this encounter
--- OUTSIDE RECORDS SUMMARY | 2025-03-21 14:48 | XMS_ITS | Encounter Summary ---
Author Organization [facility] Address [address] [facility] [place] [address] Care Team Providers Care Code And Test Clerk Name Role Phone Emilia Hernandez CORK SLABS SAWYER-DRAFTING LAYOUT MAN Primary Care Provi scarlett Edgar Watson MD Primary Care Provider [phone] Emilia Hernandez CORK SLABS SAWYER-DRAFTING LAYOUT MAN Primary Care Provi scarlett Razia Coles CORK SLABS SAWYER-DRAFTING LAYOUT MAN Primary Care Provider [phone] Neftaly Valerio MD Primary Care Provider Reason for Visit * Reason Onset Date Comments HEMOPTYSIS 11/25/2018 Encounter Details Date Type Department Care Team (Late st Contact Info) Description 11/25/2018 Telephone [facility] Internal Medicine [address] [address] Emilia Hernandez, CORK SLABS SAWYER-DRAFTING LAYOUT MAN [address] OF [facility] [place] [phone] HEMOPTYSIS Social History Tobacco Use Types Packs/Day Years Used Date Smoking Tobacco: Never Smokeless Tobacco: Never Alcohol Use Standard Drinks/Week Comments No 0 (1 standard drink = 0.6 oz pur e alcohol) Comments No Sex and Gender Information Value Date Recorded Sex Assigned at Not on file Legal Sex Female 7:34 AM INSPECTOR ELECTROMECHANICAL Gender Identity Not on file Sexual Orientation Not on file 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 Call back phone number provided. ECTOR ELECTROMECHANICAL * Telephone Encounter - Bhavani Leiva RN - 11/25/2018 4:37 PM CST Telephone call from patient to air hammer operator. Patient notified air hammer operator that she was coughing up small amounts of blood in her phlegm and also was having L hip pain. This nurse advised air hammer operator to goahead and schedule the patient for an acute care appointment and that she (the nurse) would call patient back to triage shortly. ECTOR ELECTROMECHANICAL documented in this encounter Plan of Treatment Upcoming Encounters Date Type Department Care Team (Late st Contact Info) Description 04/04/2025 8:15 AM CDT Office Visit [facility] - Ophthalmology [address] [place] [address] [place] [phone] Rupesh Sharma MD [address] [place] [address] [place] [address] 04/20/2025 9:00 AM CDT [facility] Med [address] [place] [phone] Neftaly Valerio MD [facility] [place] [address] 05/04/2025 10:00 AM CDT Office Visit [facility] - Rheumatology [address] [place] [phone] Gala Post, CORK SLABS SAWYER-[address] [address] Kenny Braun MD [address] [place] [address] 2L [place] [address] 06/07/2025 1:50 PM CDT Office Visit [facility] - Nephrology [address] [place] [phone] Roxana Gallardo MD [address] [place] [address] 2L [place] [address] 06/30/2025 9:40 AM CDT Office Visit [facility] - General Dermatology [address], [facility] 200 [place] [address] Robyn Babcock MD [address] [place] [address] 3L [place] [address] 09/04/2025 9:20 AM CDT Appointment [facility] CAT SCAN [address]01 [place] [address] Josie Almonte, CORK SLABS SAWYER-DRAFTING LAYOUT MAN [address] [facility] DEPT [place] [address] 09/13/2025 10:30 AM CDT Office Visit [facility] - Urology [address] [facility] [address] [place] [address] Josie Almonte, CORK SLABS SAWYER-DRAFTING LAYOUT MAN [address] [facility] DEPT [place] [address] 12/11/2025 9:00 AM INSPECTOR ELECTROMECHANICAL Appointment [facility] Breast Care [address] [place] [address] 03/14/2026 10:10 AM CDT Office Visit [facility] - CATALYTIC CONVERTER OPERATOR HELPER [address] [place] [address] Titus Kong MD [address] [place] [address] 03/19/2026 9:10 AM CDT Office Visit [facility] - CATALYTIC CONVERTER OPERATOR HELPER [address] [facility] [address] [place] [address] Titus Kong MD [address] [place] [address] documented as of this encounter Visit Diagnoses Not on filedocumented in this encounter Care Teams Code And Test Clerk Relationship Specialty Start Date End Date Emilia Hernandez, CORK SLABS SAWYER-DRAFTING LAYOUT MAN PCP - General 04/30/18 06/17/21 Edgar Watson MD [address] 2L DIV OF [place] [address] PCP - General 06/18/21 07/16/21 Emilia Hernandez APRN-DRAFTING LAYOUT MAN [address] [facility] 2L DIV [place] [address] PCP - General 07/17/21 11/12/21 Razia Coles APRN-DRAFTING LAYOUT MAN [address] [place] [address] PCP - General 11/13/21 12/07/22 Neftaly Valerio MD [address] [place] [address] PCP - General Internal Medicine 07/18/24 documented as of this encounter
--- OUTSIDE RECORDS SUMMARY | 2025-03-21 14:48 | XMS_ITS | Encounter Summary ---
Author Organization [facility] Address [address] [place] [address] Care Team Providers Care Atmospheric Physicist Name Role Phone Neftaly Sanchez MD Primary Care Provider [phone] Encounter Details Date Type Department Care Team (Late st Contact Info) Description 03/08/2025 Telephone [facility] Cardiology [address] [place] [address] Raimundo Casey MD [address] [address] Social History Tobacco Use Types Packs/Day Years Used Date Smoking Tobacco: Never Smokeless Tobacco: Never Comments Unknown Sex and Gender Information Value Date Recorded Sex Assigned at Not on file Legal Sex Female 3:06 PM CDT Gender Identity Not on file Sexual Orientation Not on file documented as of this encounter Miscellaneous Notes * Telephone Encounter - Selam Prince RN - 03/08/2025 4:49 PM CDT Spoke with pt at length, pt reports chronic cough, wondering if it has anything to do with her afib. Pt became tearful on the phone stating that she is scared she is going to because she is in afib. Advised pt that being in a-fib is not going to kill her. Pt states that she has high anxiety and worries/stresses a lot. Pt reports her hr is 80's, bp 150/80. Pt advised to f/u with PCP regarding chronic cough that she has. Pt advised to go to the ER for any chest pain or sob. Pt advised to monitor bp/hr. * Telephone Encounter - Ida Walsh - 03/08/2025 4:26 PM CDT Pt requesting a call back guido to discuss the feeling of being out of breathe when she takes a few steps as well as some dizziness/lightheadedness sometimes. Please advise I scheduled the pt w/ CT on03/23 since that was the soonest available but if it is possible to get her in sooner the pt would appreciate it. Thank you Contact: documented in this encounter Plan of Treatment Not on file documented as of this encounter Visit Diagnoses Not on filedocumented in this encounter Care Teams Atmospheric Physicist Relationship Specialty Start Date End Date Neftaly Sanchez MD [address] [address] PCP - General General Surgery 02/14/25 documented as of this encounter
--- OUTSIDE RECORDS SUMMARY | 2025-03-21 14:48 | XMS_ITS | Referral Summary ---
Author Organization [facility] Address [address] [place] [address] Care Team Providers Care Master Certified Rv Technician Name Role Phone Neftaly Sanchez MD Primary Care Provider [phone] Encounters Date Type Department Care Team Description 03/08/2025 Telephone [facility] Cardiology [address] [place] [address] [place] [address] Raimundo Casey MD 02/14/2025 9:00 AM CDT Office Visit [facility] Cardiology [address] [place] [address] [address] [place] [phone] Kaley Weaver NP Paroxysmal atrial fibrillation (HCC) (Primary Dx); Essential hypertension; Class 2 severe obesity due to excess calories with serious comorbidity and body mass index (BMI) of 37.0 to 37.9 in adult (HCC); Encounter for anticoagulation discussion and counseling; Hospital discharge follow-up 02/02/2025 Orders Only [facility] Cardiology [address] [place] [address] [address] [place] [phone] Mookie Owens MD 01/26/2025 Telephone [facility] Cardiology [address] [place] [address] [address] [place] [phone] Mookie Owens MD from Last 3 Months Allergies Active Allergy [...] 02/14/2025 9:19 AM CDT Plan of Treatment Not on file Procedures Procedure Name Priority Date/Time Associated Diagnosis Comments CARDIOLOGY DOCUMENT SCAN Routine 025 12:32 PM WAITER/WAITRESS THIRD CLASS from Last 3 Months Results * Cardiology Document Scan (01/26/2025 12:32 PM WAITER/WAITRESS THIRD CLASS) Anatomical Region Laterality Modality Other Mookie Owens MD CV CARDIAC SERVICES PROCEDURES F inal Result from Last 3 Months Insurance [facility] CHOICE PLUS [facility] HMO/PPO Address: [facility] [address] [place] [address] [facility] Care Teams Master Certified Rv Technician Relationship Specialty Start Date End Date Neftaly Sanchez MD [address] [phone] PCP - General General Surgery 02/14/25
--- OUTSIDE RECORDS SUMMARY | 2025-03-21 14:48 | XMS_ITS ---
Author Organization [facility] Address [address] [place] [address] Care Team Providers Care Clinical Services Manager Name Role Phone Neftaly Valerio MD Primary Care Provider [phone] Active Problems Patient Care Coordination No te [...] 12/13/2024 Assessment & Plan (12/13/2024 1:51 PM SENIOR INSIGHT MANAGER): - NSAIDs and tylenol as needed - Ref to physical therapy - Discussed that is likely at least somewhat contributed to by obesity, weight loss will often be helpful Prediabetes 12/13/2024 Assessment & Plan (12/13/2024 1:53 PM SENIOR INSIGHT MANAGER): - Weight related complication - Check A1c - continue lifestyle changes to diet and exercise as able - Recommend GLP-1 see obesity section Preventative health care 12/13/2024 Assessment & Plan (12/13/2024 1:55 PM SENIOR INSIGHT MANAGER): The 10-year ASCVD risk score (Alena LENTZ, [...] care then ended up with admission at [facility] - Appears to be resolved at this [...] 07/29/2024 Assessment & Plan (12/13/2024 1:58 PM SENIOR INSIGHT MANAGER): - Following with vascular surgery Chronic venous [...] ozempic Assessment & Plan (12/13/2024 1:57 PM SENIOR INSIGHT MANAGER): - Has been trying to lose weight [...] 09/17/2015 Assessment & Plan (12/13/2024 1:49 PM SENIOR INSIGHT MANAGER): - Good control - Continue meds - [...] carcinoma (BCC) of skin Seborrheic keratoses 03/27/2014 Current Treatment and Therapy Plans No current plan information found. Past Treatment and Therapy Plans No past plan information found. Lifetime Dose Tracking * Chemical Lifetime Dose Automatic Entry Manual Entr y Dose Length Product 1,555 mGy-cm 1,555 mGy-cm 0 mGy-cm Resolved Problems Problem Noted Date Diagnosed Date Resolved Date Rash 10/27/2019 11/24/2019 Assessment & Plan (10/27/2019 10:23 AM SENIOR INSIGHT MANAGER): Based on appearance, consist with drug rash. Patient denies any new medications. Would not expect reaction of this severity from Bactrim after tolerating previously for 7 days. Based on exam, ok to stop Bactrim--would is healing well. Zyrtec 20mg daily for 3 days then 10mg daily Stop new soap Cellulitis of right lower extremity 10/27/2019 12/13/2024 Assessment & Plan (10/27/2019 10:24 AM SENIOR INSIGHT MANAGER): Appears to be healing--ok to stop antibiotics [...]
--- OUTSIDE RECORDS SUMMARY | 2025-03-21 14:48 | XMS_ITS | Encounter Summary ---
Author Organization [facility] Address [address] [place] [address] Care Team Providers Care Certified Nurses Aide Name Role Phone Razia Coles ENEIDA-SDE Primary Care Provider [phone] Neftaly Valerio MD Primary Care Provider Reason for Visit * Reason Onset Date Comments Results 01/22/2022 Encounter Details Date Type Department Care Team (Late st Contact Info) Description 01/22/2022 Telephone [facility] D[facility]atology [address] [facility], [place] [address] Robyn Babcock MD [address] [place] [address] 3 [place] [address] Results Social History Tobacco Use Types Packs/Day Years Used Date Smoking Tobacco: Never Smokeless Tobacco: Never Alcohol Use Standard Drinks/Week Comments No 0 (1 standard drink = 0.6 oz pur e alcohol) PHQ-2 Answer Date Recorded PHQ2 TOTAL SCORE 0 11/01/2021 Comments No Sex and Gender Information Value Date Recorded Sex Assigned at Not on file Legal Sex Female 7:34 AM AUTOMATION CONTROLS SPECIALIST Gender Identity Not on file Sexual Orientation Not on file 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 No further treatment needed. MATION CONTROLS SPECIALIST * Telephone Encounter - Alejandro Lott - 01/22/2022 2:03 PM CST Pt called today concerning lab results. Said MyChart cannot be accessed. Requests a phone call to discuss. Please advise. MATION CONTROLS SPECIALIST documented in this encounter Plan of Treatment Upcoming Encounters Date Type Department Care Team (Late st Contact Info) Description 04/04/2025 8:15 AM CDT Office Visit [facility] - Ophthalmology [address] [place] [phone] Rupesh Sharma MD [address] [place] [address] [place] [address] 04/20/2025 9:00 AM CDT Office Visit [facility] - Internal Med [address] [place] [address], [place] [phone] Neftaly Valerio MD [address] [place] [address] 05/04/2025 10:00 AM CDT [facility] [address] [place] [address], [place] [phone] Gala Post EVENTS DIRECTOR-SDE [address] [address] Kenny Braun MD [address] [place] [address] 2L [place] [phone] 06/07/2025 1:50 PM CDT Office Visit [facility] - Nephrology [address] [place] [address], [place] [phone] [place] [address] [place] [address] 2L [place] [address] 06/30/2025 9:40 AM CDT Office Visit [facility] - General Dermatology [address] [place] [phone] Robyn Babcock MD [address] [place] [address] 3L [place] [address] 09/04/2025 9:20 AM CDT Appointment [facility] [address] [place] [phone] Josie Almonte, EVENTS DIRECTOR-SDE [address] [place] [address] DEPT [place] [address] 09/13/2025 10:30 AM CDT [facility] Urology [address] [place] [address] Josie Almonte, EVENTS DIRECTOR-SDE [address] [facility] DEPT [place] [address] 12/11/2025 9:00 AM AUTOMATION CONTROLS SPECIALIST Appointment [facility] Breast Care [address] [place] [address] 03/14/2026 10:10 AM CDT Office Visit [facility] - FILM PAINTER [address] [place] [address] Titus Kong MD [address] [place] [address] 03/19/2026 9:10 AM CDT Office Visit [facility] - FILM PAINTER [address] [place] [address] Titus Kong MD [address] [place] [address] documented as of this encounter Visit Diagnoses Not on filedocumented in this encounter Care Teams Certified Nurses Aide Relationship Specialty Start Date End Date Razia Coles, EVENTS DIRECTOR-SDE [address] [place] [address] PCP - General 11/13/21 12/07/22 Neftaly Valerio MD [address] [place] [address] PCP - General Internal Medicine 07/18/24 documented as of this encounter
--- OUTSIDE RECORDS SUMMARY | 2025-03-21 14:48 | XMS_ITS | Encounter Summary ---
Author Organization [facility] Address [address] [facility] [place] [address] Care Team Providers Care Insulator Apprentice Name Role Phone Neftaly Valerio MD Primary Care Provider [phone] Encounter Details Date Type Department Care Team (Late st Contact Info) Description 03/08/2025 Results [facility] - Internal Med [address] [facility], [place] [phone] Neftaly Valerio MD [address] [place], [place] [phone] Social History Tobacco Use Types Packs/Day Years Used Date Smoking Tobacco: Never Smokeless Tobacco: Never Alcohol Use Standard Drinks/Week Comments No 0 (1 standard drink = 0.6 oz pur e alcohol) PHQ-2 Answer Date Recorded Patient Health Questionnaire-2 Score 0 02/02/2025 Comments No Sex and Gender Information Value Date Recorded Sex Assigned at Not on file Legal Sex Female 7:34 AM TILE FINISHER Gender Identity Not on file Sexual Orientation Not on file 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 Not on file Not [...] Raul Jimenez RN documented in this encounter Plan of Treatment Upcoming Encounters Date Type Department Care Team (Late st Contact Info) Description 04/04/2025 8:15 AM CDT Office Visit [facility] - Ophthalmology [address] [place] [phone] Rupesh Sharma MD [address] [place] [address] [place] [address] 04/20/2025 9:00 AM CDT [facility] [address] [place] [phone] Neftaly Valerio MD [facility] [place] [address] 05/04/2025 10:00 AM CDT [facility] Rheumatology [address] [place] [phone] Gala Post APRN-[facility] [address] [phone] Kenny Braun MD [address] [place] [address] 2L [place] [address] 06/07/2025 1:50 PM CDT Office Visit [facility] - Nephrology [address] [facility], [place] [phone] Roxana Gallardo MD [address] [facility] 2L [place] [address] 06/30/2025 9:40 AM CDT [facility] General Dermatology [address] [place] [address] Robyn Babcock MD [address] [facility] 3L [place] [address] 09/04/2025 9:20 AM CDT Appointment [facility] CAT SCAN [address] [place] [address] Josie Almonte, HYDRAULIC JACK ADJUSTER-MILL ORDER SCHEDULER [address] [facility] DEPT [place] [address] 09/13/2025 10:30 AM CDT Office [facility] - Urology [address] [place] [address] Josie Almonte, HYDRAULIC JACK ADJUSTER-MILL ORDER SCHEDULER [address] [facility] DEPT [place] [address] 12/11/2025 9:00 AM TILE FINISHER Appointment [facility] Breast Care [address] [facility] [address] [place] [address] 03/14/2026 10:10 AM CDT Office Visit [facility] - K 12 PRINCIPAL [address] [facility] [address] [place] [address] Titus Kong MD [address] [address] 03/19/2026 9:10 AM CDT Office Visit [facility] - K 12 PRINCIPAL [address] [facility] [address] [place] [phone] Titus Kong MD [address] [place] [address] documented as of this encounter Goals Goal Patient Goal Type Associated Problems Recent Progress Patient-Stated? Author Medication Management General On track( 025 2:22 PM CDT) Shelley Sharpe, RN Note: Expected end date: ongoing Interventions: Take all medications as prescribed Let your doctor know right away about any changes in your medications Make sure to request a refill of your medication at least one week prior to your last dose documented as of this encounter Visit Diagnoses Not on filedocumented in this encounter Care Teams Insulator Apprentice Relationship Specialty Start Date End Date Neftaly Valerio MD [address] [place] [address] PCP - General Internal Medicine 07/18/24 documented as of this encounter
--- OUTSIDE RECORDS SUMMARY | 2025-03-21 14:48 | XMS_ITS | Encounter Summary ---
Author Organization [facility] Address [address] [facility] [place] [address] Care Team Providers Care Showplace Manager Name Role Phone Emilia Hernandez MANGLE PRESS CATCHER-LOGISTICS PLANNING MANAGER Primary Care Provi scarlett Edgar Watson MD Primary Care Provider [phone] Emilia Hernandez MANGLE PRESS CATCHER-LOGISTICS PLANNING MANAGER Primary Care Provi scarlett Razia Coles MANGLE PRESS CATCHER-LOGISTICS PLANNING MANAGER Primary Care Provider [phone] Neftaly Valerio MD Primary Care Provider [phone] Reason for Visit * Reason Onset Date Comments Med Question 06/02/2018 Med Question 06/03/2018 1st attempt to c ontact pt LM Encounter Details Date Type Department Care Team (Late st Contact Info) Description 06/02/2018 Telephone [facility] General Internal Medicine [address] [address] Emilia Hernandez, MANGLE PRESS CATCHER-LOGISTICS PLANNING MANAGER [address] [facility] [place] [address] Med Question; Med Question (1st attempt to contact pt LM) Social History Tobacco Use Types Packs/Day Years Used Date Smoking Tobacco: Never Smokeless Tobacco: Never Alcohol Use Standard Drinks/Week Comments No 0 (1 standard drink = 0.6 oz pur e alcohol) Comments No Sex and Gender Information Value Date Recorded Sex Assigned at Not on file Legal Sex Female 7:34 AM LAW REPORTER Gender Identity Not on file Sexual Orientation [...] question for TERRY Hernandez. Left message @ [phone] with affiliation and contact number, , no pertient patient information left on voicemail. Will re attempt at a later time. HARD CANDY SPINNER Mary's Message It is fine for her to [...] 10:34 AM CDT PT: Carrie Glez PH: [phone] Pt wanted to let Emilia know that [...] Description 04/04/2025 8:15 AM CDT Office Visit [facility] - Ophthalmology [address] [place] [phone] Rupesh Sharma MD [address] [place] [address] [place] [phone] 04/20/2025 9:00 AM CDT Office Visit [facility] - Internal Med [address] [place] [phone] Neftaly Valerio MD [address] [place] [address] 05/04/2025 10:00 AM CDT Office Visit [facility] - Rheumatology [address] [place] [address], [place] [phone] SincereGala, MANGLE PRESS CATCHER-LOGISTICS PLANNING MANAGER [address] [address] Kenny Braun MD [address] [place] [address] 2L [place] [phone] 06/07/2025 1:50 PM CDT [facility] Nephrology [address] [place] [address] [place] [phone] Roxana Gallardo MD [address] [place] [address] 2L [place] [address] 06/30/2025 9:40 AM CDT [facility] General Dermatology [address] [place] [address] Robyn Babcock MD [address] [place] [address] 3L [place] [address] 09/04/2025 9:20 AM CDT Appointment [facility] [address] [place] [phone] Josie Almonte, MANGLE PRESS CATCHER-LOGISTICS PLANNING MANAGER [address] [place] [address] [place] [address] 09/13/2025 10:30 AM CDT Office Visit [facility] - Urology [address] [place] [address] Josie Almonte, MANGLE PRESS CATCHER-LOGISTICS PLANNING MANAGER 1225 [facility] [place]PT [place] [address] 12/11/2025 9:00 AM LAW REPORTER Appointment [facility] Breast Care [address] [place] [address] 03/14/2026 10:10 AM CDT Office Visit [facility] - CREDIT RATING INSPECTOR [address] [place] [address] Titus Kong MD [address] [place] [address] 03/19/2026 9:10 AM CDT Office Visit [facility] - CREDIT RATING INSPECTOR [address] [facility] [address] [place] [address] Titus Kong MD [address] [place] [address] documented as of this encounter Visit Diagnoses Not on filedocumented in this encounter Care Teams Showplace Manager Relationship Specialty Start Date End Date Emilia Hernandez MANGLE PRESS CATCHER-LOGISTICS PLANNING MANAGER PCP - General 04/30/18 06/17/21 Edgar Watson MD [address] [facility] 2L DIV [place] [address] PCP - General 06/18/21 07/16/21 Emilia Hernandez MANGLE PRESS CATCHER-LOGISTICS PLANNING MANAGER [address] [facility] 2L DIV [place] [address] PCP - General 07/17/21 11/12/21 Razia Coles MANGLE PRESS CATCHER-LOGISTICS PLANNING MANAGER [address] [place] [address] PCP - General 11/13/21 12/07/22 Neftaly Valerio MD [address] [place] [phone] PCP - General Internal Medicine 07/18/24 documented as of this encounter
[2025-03-21 14:54] LABS: NT Pro B Type Natriuretic Pept 2610 pg/mL (19.9-100)
--- OUTSIDE RECORDS SUMMARY | 2025-03-21 15:27 | XMS_ITS | Encounter Summary ---
Author Organization [facility] Address [address] [place] [address] Care Team Providers Care Middle School Teacher Name Role Phone Emilia Hernandez APRN-OVERLOCK HEMMER Primary Care Provi scarlett Edgar Watson MD Primary Care Provider [phone] Emilia Hernandez PROSTHODONTIST-OVERLOCK HEMMER Primary Care Provi scarlett Razia Coles PROSTHODONTIST-OVERLOCK HEMMER Primary Care Provider [phone] Neftaly Valerio MD Primary Care Provider [phone] Reason for Visit * Reason Onset Date Comments Results 10/27/2018 Results 10/28/2018 1st attempt to c ontact pt with results LM Results 11/05/2018 2nd attempt to c ontact pt with results LM Results 11/11/2018 3rd attempt to c ontact pt with results LM Encounter Details Date Type Department Care Team (Late st Contact Info) Description 10/27/2018 Telephone [facility] General Internal Medicine [address] [address] Emilia Hernandez, PROSTHODONTIST-OVERLOCK HEMMER [address] OF [place] [phone] Results; Results (1st attempt to contact pt [...] on file Legal Sex Female 7:34 AM COAL FEEDER OPERATOR Gender Identity Not on file Sexual Orientation Not on file 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 She should have received by now. ELZA Faith FEEDER OPERATOR * Telephone Encounter - Kathleen Medina - 11/11/2018 9:08 AM CST Please advise if a letter with results should be sent to patient. FEEDER OPERATOR * Telephone Encounter - Kathleen Medina - 11/11/2018 9:08 AM CST 3rd attempt to contact patient and notify of mammogram results and unable to reach at this time. ? Left message @ [phone]??with affiliation and contact number, , no pertient patientinformation left on voicemail. ? TERRY Hernandez's Message Please tell her they were negative. ELZA Faith FEEDER OPERATOR * Telephone Encounter - Kathleen Medina - 11/05/2018 11:46 AM CST 2nd attempt to contact patient and notify of mammogram results and unable to reach at this time. ?? Left message @ [phone] with affiliation and contact number, , no pertient patient information left on voicemail. ?? Will re attempt at a later time ?? TERRY Hernandez's Message Please tell her they were negative. ELZA Faith FEEDER OPERATOR * Telephone Encounter - Kathleen Medina - 10/28/2018 12:33 PM CST 1st attempt to contact patient and notify of mammogram results and unable to reach at this time. Left message @ [phone] with affiliation and contact number, , no pertient patient information left on voicemail. Will re attempt at a later time CHAPLAIN Mary's Message Please tell her they were negative. ELZA Faith FEEDER OPERATOR * Telephone Encounter - Emilia Hernandez APRN-CNP - 10/27/2018 4:13 PM COAL FEEDER OPERATOR Please tell her they were negative. ELZA Faith FEEDER OPERATOR * Telephone Encounter - Fidelina Lamjuliánheather - 10/27/2018 2:28 PM CST Pt Amaris Butler Pt called to get the results of her mammogram, Thank you very much Ansone FEEDER OPERATOR documented in this encounter Plan of Treatment Upcoming Encounters Date Type Department Care Team (Late st Contact Info) Description 04/04/2025 8:15 AM CDT Office Visit [facility] - Ophthalmology [address] [place] [phone] Rupesh Sharma MD [address] [place] [address] [place] [address] 04/20/2025 9:00 AM CDT Office Visit [facility] - Internal Med [address] [place] [phone] Neftaly Valerio MD [facility] [place] [address] 05/04/2025 10:00 AM CDT Office Visit [facility] - Rheumatology [address] [place] [phone] Gala Post APRN-OVERLOCK HEMMER [address] [place] [phone] Kenny Braun MD [address] [place] [address] [place] [phone] 06/07/2025 1:50 PM CDT Office Visit [facility] - Nephrology [address] [place] [address] [place] [phone] Roxana Gallardo MD [address] [place], [place] [address] 2L [place] [address] 06/30/2025 9:40 AM CDT Office Visit [facility] - General Dermatology [address] [place] [address] Robyn Babcock MD [address] [facility] 3L [place] [address] 09/04/2025 9:20 AM CDT Appointment [facility] CAT SCAN [address] [place] [address] Josie Almonte, PROSTHODONTIST-OVERLOCK HEMMER 1225 [facility] [place] [address] 09/13/2025 10:30 AM CDT [facility] [address] [place] [phone] Josie Almonte, PROSTHODONTIST-OVERLOCK HEMMER 1225 [facility] [place] [address] 12/11/2025 9:00 AM COAL FEEDER OPERATOR Appointment [facility] Breast Care [address] [place] [address] 03/14/2026 10:10 AM CDT [facility] IT SERVICE CONTINUITY SUPERVISOR [address] [place] [address] Titus Kong MD [address] [address] 03/19/2026 9:10 AM CDT [facility] - IT SERVICE CONTINUITY SUPERVISOR [address] [place] [address] Titus Kong MD [address] [address] documented as of this encounter Visit Diagnoses Not on filedocumented in this encounter Care Teams Middle School Teacher Relationship Specialty Start Date End Date Emilia Hernandez PROSTHODONTIST-OVERLOCK HEMMER PCP - General 04/30/18 06/17/21 Edgar Watson MD [address] [facility] 2L [place] [address] PCP - General 06/18/21 07/16/21 Emilia Hernandze APRN-OVERLOCK HEMMER [address] [facility] 2L DIV OF [facility] [place] [phone] PCP - General 07/17/21 11/12/21 Razia Coles, PROSTHODONTIST-OVERLOCK HEMMER [address] [place] [phone] PCP - General 11/13/21 12/07/22 Neftaly Valerio MD [address] [place] [address] PCP - General Internal Medicine 07/18/24 documented as of this encounter
--- OUTSIDE RECORDS SUMMARY | 2025-03-21 15:27 | XMS_ITS | Encounter Summary ---
Author Organization [facility] Address [address] [facility] [address] Care Team Providers Care Casework Manager Name Role Phone Emilia Hernandez ORDER RUNNER-STOCK LETTERER Primary Care Provi scarlett Edgar Watson MD Primary Care Provider [phone] Emilia Hernandez ORDER RUNNER-STOCK LETTERER Primary Care Provi scarlett Razia Coles ORDER RUNNER-STOCK LETTERER Primary Care Provider [phone] Neftaly Valerio MD Primary Care Provider [phone] Reason for Visit * Reason Onset Date Comments Med Question 06/02/2018 Med Question 06/03/2018 1st attempt to c ontact pt LM Encounter Details Date Type Department Care Team (Late st Contact Info) Description 06/02/2018 Telephone [facility] General Internal Medicine [address] [address] Emilia Hernandez, ORDER RUNNER-STOCK LETTERER [address] OF [facility] [place] [address] Med Question; Med Question (1st attempt to contact pt LM) Social History Tobacco Use Types Packs/Day Years Used Date Smoking Tobacco: Never Smokeless Tobacco: Never Alcohol Use Standard Drinks/Week Comments No 0 (1 standard drink = 0.6 oz pur e alcohol) Comments No Sex and Gender Information Value Date Recorded Sex Assigned at Not on file Legal Sex Female 7:34 AM JAVA SOFTWARE Gender Identity Not on file Sexual Orientation [...] question for TERRY Hernandez. Left message @ [phone] with affiliation and contact number, , no pertient patient information left on voicemail. Will re attempt at a later time. BALLISTICS EXPERT FORENSIC Mary's Message It is fine for her [...] 10:34 AM CDT PT: Carrie Glez PH: [phone] Pt wanted to let Emilia know that [...] Office Visit [facility] - Ophthalmology [address] [place] [phone] Rupesh Sharma MD [address] [place] [address] [place] [address] 04/20/2025 9:00 AM CDT Office Visit [facility] - Internal Med [address] [place] [phone] Neftaly Valerio MD [address] [place] [address] 05/04/2025 10:00 AM CDT Office Visit [facility] - Rheumatology [address] [place] [address], [place] [phone] SincereGala, ORDER RUNNER-STOCK LETTERER [address] [address] Kenny Braun MD [address] [place] [address] 2L [place] [phone] 06/07/2025 1:50 PM CDT [facility] [address] [place] [address] [place] [phone] Roxana Gallardo MD [address] [place] [address] 2L [place] [address] 06/30/2025 9:40 AM CDT [facility] - General Dermatology [address] [place] [address] Robyn Babcock MD [address] [place] [address] 3L [place] [address] 09/04/2025 9:20 AM CDT Appointment [facility]AN [address] [place] [phone] Josie Almonte, ORDER RUNNER-STOCK LETTERER [address] [place] [address] [place] [address] 09/13/2025 10:30 AM CDT Office Visit [facility] - Urology [address] [place] [address] Josie Almonte, ORDER RUNNER-STOCK LETTERER [address] [facility] [place] [address] 12/11/2025 9:00 AM JAVA SOFTWARE Appointment [facility] Breast Care [address] [place] [address] 03/14/2026 10:10 AM CDT Office Visit [facility] - DIRECTOR OF RADIOLOGY [address] [place] [address] Titus Kong MD [address] [place] [address] 03/19/2026 9:10 AM CDT Office Visit [facility] - DIRECTOR OF RADIOLOGY [address] [place] [phone] Titus Kong MD [address] [place] [address] documented as of this encounter Visit Diagnoses Not on filedocumented in this encounter Care Teams Casework Manager Relationship Specialty Start Date End Date Emilia Hernandez ORDER RUNNER-STOCK LETTERER PCP - General 04/30/18 06/17/21 Edgar Watson MD [address] [facility] 2L [place] [address] PCP - General 06/18/21 07/16/21 Emilia Hernandez ORDER RUNNER-STOCK LETTERER [address] [facility] 2L [place] [address] PCP - General 07/17/21 11/12/21 Razia Coles ORDER RUNNER-STOCK LETTERER [address] [place] [address] PCP - General 11/13/21 12/07/22 Neftaly Valerio MD [address] [place] [phone] PCP - General Internal Medicine 07/18/24 documented as of this encounter
--- OUTSIDE RECORDS SUMMARY | 2025-03-21 15:27 | XMS_ITS | Encounter Summary ---
Author Organization [facility] Address [address] [facility] [place] [address] Care Team Providers Care Vp Organizational Development Name Role Phone Emilia Hernandez MECHANICAL ENGINEERING SPECIALIST-[facility] Primary Care Provi scarlett Edgar Watson MD Primary Care Provider [phone] Emilia Hernandez MECHANICAL ENGINEERING SPECIALIST-[facility] Primary Care Provi scarlett Razia Coles MECHANICAL ENGINEERING SPECIALIST-[facility] Primary Care Provider [phone] Neftaly Valerio MD Primary Care Provider [phone] Encounter Details Date Type Department Care Team (Late st Contact Info) Description 01/28/2021 Telemedicine [facility] General Internal Medicine [address] [place] [address], [place] [phone] mEilia Hernandez, MECHANICAL ENGINEERING SPECIALIST-[address] [place] [address] Social History Tobacco Use Types Packs/Day Years Used Date Smoking Tobacco: Never Smokeless Tobacco: Never Alcohol Use Standard Drinks/Week Comments No 0 (1 standard drink = 0.6 oz pur e alcohol) Comments No Sex and Gender Information Value Date Recorded Sex Assigned at Not on file Legal Sex Female 7:34 AM MANAGER TRAINEE Gender Identity Not on file Sexual Orientation Not on file 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 Not [...] Office Visit [facility] - Ophthalmology [address] [place] [address] Rupesh Sharma MD [address] [place] [address] [place] [address] 04/20/2025 9:00 AM CDT Office Visit [facility] - Internal Med [address] [place] [phone] Neftaly Valerio MD [facility] [place] [address] 05/04/2025 10:00 AM CDT Office Visit [facility] - Rheumatology [address] [place] [phone] Gala Post APRN[address] [place] [address] Kenny Braun MD [address] [facility] 2L [place] [address] 06/07/2025 1:50 PM CDT Office Visit [facility] - Nephrology [address] [facility], [place] [address] Roxana Gallardo MD [address] [facility] 2L [place] [address] 06/30/2025 9:40 AM CDT Office Visit [facility] - General Dermatology [address], [address] [place] [phone] Robyn Babcock MD [address] [facility] 3L DEPT [place] [address] 09/04/2025 9:20 AM CDT Appointment [facility] CAT SCAN [address]01 [place] [phone] Josie Almonte, MECHANICAL ENGINEERING SPECIALIST-LAB TECHNICIAN [address] [facility] DEPT [place] [address] 09/13/2025 10:30 AM CDT Office Visit [facility] - Urology [address] [place] [phone] Josie Almonte, MECHANICAL ENGINEERING SPECIALIST-LAB TECHNICIAN [address] [facility] DEPT [place] [address] 12/11/2025 9:00 AM MANAGER TRAINEE Appointment [facility] Breast Care [address] [facility] [address] [place] [address] 03/14/2026 10:10 AM CDT Office Visit [facility] - CAREER DEVELOPMENT COORDINATOR [address] [place] [address] Titus Kong MD [address]20 [place] [address] 03/19/2026 9:10 AM CDT Office Visit [facility] - CAREER DEVELOPMENT COORDINATOR [address] [place] [address] Titus Kong MD [address] [place] [address] documented as of this encounter Visit Diagnoses Not on filedocumented in this encounter Care Teams Vp Organizational Development Relationship Specialty Start Date End Date Emilia Hernandez MECHANICAL ENGINEERING SPECIALIST-LAB TECHNICIAN PCP - General 04/30/18 06/17/21 Edgar Watson MD [address] [facility] 2L DIV [place] [address] PCP - General 06/18/21 07/16/21 Emilia Hernandez, MECHANICAL ENGINEERING SPECIALIST-LAB TECHNICIAN [address] 2L DIV [place] [address] PCP - General 07/17/21 11/12/21 Razia Coles, MECHANICAL ENGINEERING SPECIALIST-LAB TECHNICIAN [address] [place] [address] PCP - General 11/13/21 12/07/22 Neftaly Valerio MD [address] [place] [address] PCP - General Internal Medicine 07/18/24 documented as of this encounter
--- OUTSIDE RECORDS SUMMARY | 2025-03-21 15:27 | XMS_ITS | Clinical Summary ---
Author Organization [facility] Address [facility] [place] [address] Care Team Providers Care Hadoop Developer Name Role Phone Neftaly Sanchez MD Primary Care Provider [phone] Allergies Active Allergy Reactions Criticality Noted Date [...] Type Department Care Team Description 03/08/2025 Telephone [facility] Cardiology [address] [place] [address] [place] [address] Raimundo Casey MD 02/14/2025 9:00 AM CDT Office Visit [facility] Cardiology [address] [place] [address] [place] [address] Kaley Weaver NP Paroxysmal atrial fibrillation (HCC) (Primary Dx); Essential hypertension; Class 2 severe obesity due to excess calories with serious comorbidity and body mass index (BMI) of 37.0 to 37.9 in adult (HCC); Encounter for anticoagulation discussion and counseling; Hospital discharge follow-up 02/02/2025 Orders Only [facility] Cardiology [address] [place] [address] [place] [address] Mookie Owens MD 01/26/2025 Telephone [facility] Cardiology [address] [place] [address] [place] [address] Mookie Owens MD from Last 3 [...] CARDIOLOGY DOCUMENT SCAN Routine 025 12:32 PM EPIC CADENCE ANALYST from Last 3 Months Results * Cardiology Document Scan (01/26/2025 12:32 PM EPIC CADENCE ANALYST) Anatomical Region Laterality Modality Other Mookie Owens MD CV CARDIAC SERVICES PROCEDURES F inal Result from Last 3 Months Insurance [facility] CHOICE [facility] HMO/PPO Address: [address] [address] [place] [address] [facility] [facility] Care Teams Hadoop Developer Relationship Specialty Start Date End Date Neftaly Sanchez MD [address] [phone] PCP - General General Surgery 02/14/25
--- OUTSIDE RECORDS SUMMARY | 2025-03-21 15:27 | XMS_ITS | Encounter Summary ---
Author Organization [facility] Address [address] [facility] [place] [address] Care Team Providers Care Caustic Operator Name Role Phone Emilia Hernandez ITINERANT TEACHER ASSISTANT-ABALONE SHELLER Primary Care Provi scarlett Edgar Watson MD Primary Care Provider [phone] Emilia Hernandez ITINERANT TEACHER ASSISTANT-ABALONE SHELLER Primary Care Provi scarlett Razia Coles ITINERANT TEACHER ASSISTANT-ABALONE SHELLER Primary Care Provider [phone] Neftaly Valerio MD Primary Care Provider [phone] Reason for Visit * Reason Onset Date Comments HEMOPTYSIS 11/25/2018 Encounter Details Date Type Department Care Team (Late st Contact Info) Description 11/25/2018 Telephone [facility] General Internal Medicine [address] [address] Emilia Hernandez, ITINERANT TEACHER ASSISTANT-ABALONE SHELLER [address] OF [facility] [place] [address] HEMOPTYSIS Social History Tobacco Use Types Packs/Day Years Used Date Smoking Tobacco: Never Smokeless Tobacco: Never Alcohol Use Standard Drinks/Week Comments No 0 (1 standard drink = 0.6 oz pur e alcohol) Comments No Sex and Gender Information Value Date Recorded Sex Assigned at Not on file Legal Sex Female 7:34 AM AIRPORT GUIDE Gender Identity Not on file Sexual Orientation Not on file 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 Call back phone number provided. ORT GUIDE * Telephone Encounter - Bhavani Leiva RN - 11/25/2018 4:37 PM CST Telephone call from patient to outsole scheduler. Patient notified outsole scheduler that she was coughing up small amounts of blood in her phlegm and also was having L hip pain. This nurse advised outsole scheduler to goahead and schedule the patient for an acute care appointment and that she (the nurse) would call patient back to triage shortly. ORT GUIDE documented in this encounter Plan of Treatment Upcoming Encounters Date Type Department Care Team (Late st Contact Info) Description 04/04/2025 8:15 AM CDT Office Visit [facility] - Ophthalmology [address] [place] [address] [place] [address] Rupesh Sharma MD [address] [place] [address] [place] [phone] 04/20/2025 9:00 AM CDT [facility] [address] [place] [phone] Neftaly Valerio MD [facility]1 [place] [address] 05/04/2025 10:00 AM CDT Office Visit [facility] - Rheumatology [address] [place] [phone] Gala Post, ITINERANT TEACHER ASSISTANT-[address] [address] Kenny Braun MD [address] [place] [address] 2L [place] [phone] 06/07/2025 1:50 PM CDT Office Visit [facility] - Nephrology [address] [place] [phone] Roxana Gallardo MD [address] [place] [address] 2L [place] [address] 06/30/2025 9:40 AM CDT Office Visit [facility] - General Dermatology [address], [facility] 200 [place] [address] Robyn Babcock MD [address] [place] [address] 3L [place] [address] 09/04/2025 9:20 AM CDT Appointment [facility] CAT SCAN [address] [place] [address] Josie Almonte, ITINERANT TEACHER ASSISTANT-ABALONE SHELLER 1225 [facility] [place] [address] 09/13/2025 10:30 AM CDT Office Visit [facility] - Urology [address] [facility] [address] [place] [address] Josie Almonte, ITINERANT TEACHER ASSISTANT-ABALONE SHELLER [address] [facility] [place] [address] 12/11/2025 9:00 AM AIRPORT GUIDE Appointment [facility] Breast Care [address] [place] [address] 03/14/2026 10:10 AM CDT Office Visit [facility] - DATABASE ADMINISTRATION PROJECT MANAGER [address] [place] [address] Titus Kong MD [address] [place] [address] 03/19/2026 9:10 AM CDT Office Visit [facility] - DATABASE ADMINISTRATION PROJECT MANAGER [address] [facility] [address] [place] [address] Titus Kong MD [address] [place] [address] documented as of this encounter Visit Diagnoses Not on filedocumented in this encounter Care Teams Caustic Operator Relationship Specialty Start Date End Date Emilia Hernandez, ITINERANT TEACHER ASSISTANT-ABALONE SHELLER PCP - General 04/30/18 06/17/21 Edgar Watson MD [address] 2L [place] [address] PCP - General 06/18/21 07/16/21 Emilia Hernandez APRN-ABALONE SHELLER [address] [facility] 2L [place] [address] PCP - General 07/17/21 11/12/21 Razia Coles APRN-ABALONE SHELLER [address] [place] [address] PCP - General 11/13/21 12/07/22 Neftaly Valerio MD [address] [place] [address] PCP - General Internal Medicine 07/18/24 documented as of this encounter
--- OUTSIDE RECORDS SUMMARY | 2025-03-21 15:28 | XMS_ITS | Encounter Summary ---
Author Organization [facility] Address [address] [facility] [place] [address] Care Team Providers Care Extract Puller Name Role Phone Razia Coles Primary Care Provider [phone] Neftaly Valerio MD Primary Care Provider [phone] Reason for Visit * Reason Onset Date Comments Appointment 06/05/2022 Encounter Details Date Type Department Care Team (Late st Contact Info) Description 06/05/2022 Telephone [facility] [address] [place] [address] Razia Coles APRN-EXCEPTIONAL STUDENT EDUCATION TEACHER [address] [place] [phone] Appointment Social History Tobacco Use Types Packs/Day Years Used Date Smoking Tobacco: Never Smokeless Tobacco: Never Alcohol Use Standard Drinks/Week Comments No 0 (1 standard drink = 0.6 oz pur e alcohol) PHQ-2 Answer Date Recorded PHQ2 TOTAL SCORE 0 11/01/2021 Comments No Sex and Gender Information Value Date Recorded Sex Assigned at Not on file Legal Sex Female 7:34 AM FOOT TENDER Gender Identity Not on file Sexual Orientation Not on file 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 Would the scheduling team reach out to the patient to r/s her bumped appt from 07/25/2022 if possible? Patient Call Back number: [phone] documented in this encounter Plan of Treatment Upcoming Encounters Date Type Department Care Team (Late st Contact Info) Description 04/04/2025 8:15 AM CDT Office Visit [facility] - Ophthalmology [address] [place] [phone] Rupesh Sharma MD [address] [place] [address] [place] [address] 04/20/2025 9:00 AM CDT Office Visit [facility] - Internal Med [address] [place] [address] Neftaly Valerio MD [address] [place] [address] 05/04/2025 10:00 AM CDT Office Visit [facility] - Rheumatology [address] [place] [address], [place] [phone] SincereGala, DATA ASSISTANT-EXCEPTIONAL STUDENT EDUCATION TEACHER [address] [phone] Kenny Braun MD [address] [place] [address] 2L [place] [address] 06/07/2025 1:50 PM CDT [facility] [address] [place] [address] [place] [phone] Roxana Gallardo MD [address] [place] [address] 2L [place] [address] 06/30/2025 9:40 AM CDT [facility] General Dermatology [address] [place] [address] Robyn Babcock MD [address] [place] [address] 3L [place] [address] 09/04/2025 9:20 AM CDT Appointment [facility] CAT SCAN [address] [place] [phone] Josie Almonte, DATA ASSISTANT-EXCEPTIONAL STUDENT EDUCATION TEACHER [address] [place] [address] DE[place] [address] 09/13/2025 10:30 AM CDT Office Visit [facility] - Urology [address] [place] [address] Josie Almonte, DATA ASSISTANT-EXCEPTIONAL STUDENT EDUCATION TEACHER [address] [place] [address] DE[place] [address] 12/11/2025 9:00 AM FOOT TENDER Appointment [facility] Breast Care [address] [place] [address] 03/14/2026 10:10 AM CDT Office Visit [facility] Group - NUCLEAR CARDIOLOGY TECHNOLOGIST [address] [place] [address] Titus Kong MD [address] [place] [address] 03/19/2026 9:10 AM CDT Office Visit [facility] - NUCLEAR CARDIOLOGY TECHNOLOGIST [address] [facility] [address] [place] [address] Titus Kong MD [address] [place] [address] documented as of this encounter Visit Diagnoses Not on filedocumented in this encounter Care Teams Extract Puller Relationship Specialty Start Date End Date Razia Coles APRN-EXCEPTIONAL STUDENT EDUCATION TEACHER [address] [place] [address] PCP - General 11/13/21 12/07/22 Neftaly Valerio MD [address] [place] [address] PCP - General Internal Medicine 07/18/24 documented as of this encounter
--- OUTSIDE RECORDS SUMMARY | 2025-03-21 15:28 | XMS_ITS | Encounter Summary ---
Author Organization [facility] Health Address [address] [place] [address] Care Team Providers Care Diamond Die Maker Name Role Phone Razia Coles ENIEDA-BIOFUELS TECHNOLOGY DEVELOPMENT MANAGER Primary Care Provider [phone] Neftaly Valerio MD Primary Care Provider [phone] Reason for Visit * Reason Onset Date Comments Results 01/22/2022 Encounter Details Date Type Department Care Team (Late st Contact Info) Description 01/22/2022 Telephone [facility] D[facility]atology [address] [facility], [place] [address] Robyn Babcock MD [address] [place] [address] 3 [place] [address] Results Social History Tobacco Use Types Packs/Day Years Used Date Smoking Tobacco: Never Smokeless Tobacco: Never Alcohol Use Standard Drinks/Week Comments No 0 (1 standard drink = 0.6 oz pur e alcohol) PHQ-2 Answer Date Recorded PHQ2 TOTAL SCORE 0 11/01/2021 Comments No Sex and Gender Information Value Date Recorded Sex Assigned at Not on file Legal Sex Female 7:34 AM WIPING RAG WASHER Gender Identity Not on file Sexual Orientation [...] biopsy is benign. No further treatment needed. NG RAG WASHER * Telephone Encounter - Alejandro Lott - 01/22/2022 2:03 PM CST Pt called today concerning lab results. Said MyChart cannot be accessed. Requests a phone call to discuss. Please advise. NG RAG WASHER documented in this encounter Plan of Treatment Upcoming Encounters Date Type Department Care Team (Late st Contact Info) Description 04/04/2025 8:15 AM CDT Office Visit [facility] - Ophthalmology [address] [place] [phone] Rupesh Sharma MD [address] [place] [address] [place] [phone] 04/20/2025 9:00 AM CDT Office Visit [facility] - Internal Med [address] [place] [address], [place] [phone] Neftaly Valerio MD [address] [place] [address] 05/04/2025 10:00 AM CDT [facility] Rhe[facility] [address] [place] [address], [place] [phone] Gala Post SUPERVISOR DENTURE DEPARTMENT-BIOFUELS TECHNOLOGY DEVELOPMENT MANAGER [address] [address] Kenny Braun MD [address] [place] [address] 2L [place] [address] 06/07/2025 1:50 PM CDT Office Visit [facility] - Nephrology [address] [place] [address], [place] [phone] [place] [address] [place] [address] 2L [place] [address] 06/30/2025 9:40 AM CDT Office Visit [facility] - General Dermatology [address], [address] [place] [phone] Robyn Babcock MD [address] [place] [address] 3L [place] [address] 09/04/2025 9:20 AM CDT Appointment [facility] [address] [place] [phone] Josie Almonte, SUPERVISOR DENTURE DEPARTMENT-BIOFUELS TECHNOLOGY DEVELOPMENT MANAGER [address] [place] [address] [place] [address] 09/13/2025 10:30 AM CDT [facility] Urology [address] [place] [address] Josie Almonte, SUPERVISOR DENTURE DEPARTMENT-BIOFUELS TECHNOLOGY DEVELOPMENT MANAGER [address] [facility] [address] [place] [address] 12/11/2025 9:00 AM WIPING RAG WASHER Appointment [facility] Breast [facility] [address] [place] [address] 03/14/2026 10:10 AM CDT Office Visit [facility] - HEAD ATHLETIC TRAINER/STRENGTH COACH [address] [place] [phone] Titus Kong MD [address] [place] [address] 03/19/2026 9:10 AM CDT Office Visit [facility] - HEAD ATHLETIC TRAINER/STRENGTH COACH [address] [place] [phone] Titus Kong MD [address] [place] [address] documented as of this encounter Visit Diagnoses Not on filedocumented in this encounter Care Teams Diamond Die Maker Relationship Specialty Start Date End Date Razia Coles, SUPERVISOR DENTURE DEPARTMENT-BIOFUELS TECHNOLOGY DEVELOPMENT MANAGER [address] [place] [address] PCP - General 11/13/21 12/07/22 Neftaly Valerio MD [address] [place] [address] PCP - General Internal Medicine 07/18/24 documented as of this encounter
--- OUTSIDE RECORDS SUMMARY | 2025-03-21 15:28 | XMS_ITS ---
Author Organization [facility] Address [address] [facility] [place] [address] Care Team Providers Care Knowledge Analyst Name Role Phone Neftaly Valerio MD Primary Care Provider [phone] Active Problems Patient Care Coordination No te [...] 12/13/2024 Assessment & Plan (12/13/2024 1:51 PM ADAPTED PHYSICAL EDUCATION TEACHER): - NSAIDs and tylenol as needed - Ref to physical therapy - Discussed that is likely at least somewhat contributed to by obesity, weight loss will often be helpful Prediabetes 12/13/2024 Assessment & Plan (12/13/2024 1:53 PM ADAPTED PHYSICAL EDUCATION TEACHER): - Weight related complication - Check A1c - continue lifestyle changes to diet and exercise as able - Recommend GLP-1 see obesity section Preventative health care 12/13/2024 Assessment & Plan (12/13/2024 1:55 PM ADAPTED PHYSICAL EDUCATION TEACHER): The 10-year ASCVD risk score (Alena LENTZ, [...] care then ended up with admission at [facility] - Appears to be resolved at this [...] 07/29/2024 Assessment & Plan (12/13/2024 1:58 PM ADAPTED PHYSICAL EDUCATION TEACHER): - Following with vascular surgery Chronic venous [...] ozempic Assessment & Plan (12/13/2024 1:57 PM ADAPTED PHYSICAL EDUCATION TEACHER): - Has been trying to lose weight [...] 09/17/2015 Assessment & Plan (12/13/2024 1:49 PM ADAPTED PHYSICAL EDUCATION TEACHER): - Good control - Continue meds - [...] 11/24/2019 Assessment & Plan (10/27/2019 10:23 AM ADAPTED PHYSICAL EDUCATION TEACHER): Based on appearance, consist with drug rash. Patient denies any new medications. Would not expect reaction of this severity from Bactrim after tolerating previously for 7 days. Based on exam, ok to stop Bactrim--would is healing well. Zyrtec 20mg daily for 3 days then 10mg daily Stop new soap Cellulitis of right lower extremity 10/27/2019 12/13/2024 Assessment & Plan (10/27/2019 10:24 AM ADAPTED PHYSICAL EDUCATION TEACHER): Appears to be healing--ok to stop antibiotics [...]
--- OUTSIDE RECORDS SUMMARY | 2025-03-21 15:28 | XMS_ITS | Encounter Summary ---
Author Organization [facility] Health Address [address] [facility] [place] [address] Care Team Providers Care Thermometer Tester Name Role Phone Razia Coles Primary Care Provider [phone] Neftaly Valerio MD Primary Care Provider [phone] Reason for Visit * Reason Onset Date Comments Congestion 10/23/2022 Encounter Details Date Type Department Care Team (Late st Contact Info) Description 10/23/2022 Telephone [facility] [address] [place] [address] Razia Coles APRN-[facility] [address] [place] [phone] Congestion Social History Tobacco Use Types Packs/Day Years Used Date Smoking Tobacco: Never Smokeless Tobacco: Never Alcohol Use Standard Drinks/Week Comments No 0 (1 standard drink = 0.6 oz pur e alcohol) PHQ-2 Answer Date Recorded PHQ2 TOTAL SCORE 0 11/01/2021 Comments No Sex and Gender Information Value Date Recorded Sex Assigned at Not on file Legal Sex Female 7:34 AM END FINDER TWISTING DEPARTMENT Gender Identity Not on file Sexual Orientation Not on file 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 FINDER TWISTING DEPARTMENT documented in this encounter Plan of Treatment Upcoming Encounters Date Type Department Care Team (Late st Contact Info) Description 04/04/2025 8:15 AM CDT Office Visit [facility] - Ophthalmology [address] [place] [address] Rupesh Sharma MD [address] [place] [address] 04/20/2025 9:00 AM CDT Office Visit [facility] - Internal Med [facility] [facility], [place] [phone] Neftaly Valerio MD [address] [place] [address] 05/04/2025 10:00 AM CDT Office Visit [facility] - Rheumatology [address] [place] [address], [place] [phone] Gala Post APRN-INDUSTRIAL PSYCHOLOGY PROFESSOR [address] [place] [address] Kenny Braun MD [address] [place] [address] 2L [place] [address] 06/07/2025 1:50 PM CDT Office Visit [facility] - Nephrology [address] [place] [address], [place] [phone] Roxana Gallardo MD [facility]5 [facility] 2L [place] [address] 06/30/2025 9:40 AM CDT [facility] - General Dermatology [address], [facility] [address] [place] [phone] Robyn Babcock MD [facility] 3L [place] [address] 09/04/2025 9:20 AM CDT Appointment [facility] CAT SCAN [address] [place] [phone] Josie Almonte, BLOCK ENGRAVER-INDUSTRIAL PSYCHOLOGY PROFESSOR [address] [place] [address] [place] [address] 09/13/2025 10:30 AM CDT Office Visit [facility] - Urology [address] [place] [address] Josie Almonte APRN-INDUSTRIAL PSYCHOLOGY PROFESSOR [address] [facility] [place] [address] 12/11/2025 9:00 AM END FINDER TWISTING DEPARTMENT Appointment [facility] Breast Care [address] [place] [address] 03/14/2026 10:10 AM CDT Office [facility] - DIPPER MACHINE OPERATOR [address] [place] [phone] Titus Kong MD [address] [place] [address] 03/19/2026 9:10 AM CDT Office Visit [facility] - DIPPER MACHINE OPERATOR [address] [place] [phone] Titus Kong MD [address] [place] [address] documented as of this encounter Visit Diagnoses Not on filedocumented in this encounter Care Teams Thermometer Tester Relationship Specialty Start Date End Date Razia Coles APRN-INDUSTRIAL PSYCHOLOGY PROFESSOR [address] [place] [address] PCP - General 11/13/21 12/07/22 Neftaly Valerio MD [address] [place] [address] PCP - General Internal Medicine 07/18/24 documented as of this encounter
--- OUTSIDE RECORDS SUMMARY | 2025-03-21 15:28 | XMS_ITS | Encounter Summary ---
Author Organization [facility] Health Address [address] [facility] [place] [address] Care Team Providers Care Basting Puller Name Role Phone Emilia Hernandez AUTOMATIC STEEL TIE ADJUSTER-MANAGER LOGISTIC Primary Care Provi scarlett Edgar Watson MD Primary Care Provider [phone] Emilia Hernandez AUTOMATIC STEEL TIE ADJUSTER-MANAGER LOGISTIC Primary Care Provi scarlett Razia Coles AUTOMATIC STEEL TIE ADJUSTER-MANAGER LOGISTIC Primary Care Provider [phone] Neftaly Valerio MD Primary Care Provider [phone] Reason for Visit * Reason Onset Date Comments Future Appointment 02/09/2020 Encounter Details Date Type Department Care Team (Late st Contact Info) Description 02/09/2020 Telephone [facility] Internal Medicine [address] [address] Emilia Hernandez, AUTOMATIC STEEL TIE ADJUSTER-MANAGER LOGISTIC [address] [facility] [place] [phone] Future Appointment Social History Tobacco Use Types Packs/Day Years Used Date Smoking Tobacco: Never Smokeless Tobacco: Never Alcohol Use Standard Drinks/Week Comments No 0 (1 standard drink = 0.6 oz pur e alcohol) Comments No Sex and Gender Information Value Date Recorded Sex Assigned at Not on file Legal Sex Female 7:34 AM COBOL MAINFRAME DEVELOPER Gender Identity Not on file Sexual Orientation Not on file 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 Answer Date of Assessment Author No 07/04/2015 10:59 AM CDT Raul Jimenez RN * Is person blind or have serious difficulty seeing? Answer Date of Assessment Author No 07/04/2015 10:59 AM CDT Ralu Jimenez RN * Does person have serious [...] population Agreed to move appt Transferred to main campus medical center documented in this encounter Plan of Treatment Upcoming Encounters Date Type Department Care Team (Late st Contact Info) Description 04/04/2025 8:15 AM CDT Office Visit [facility] - Ophthalmology [address] [place] [phone] Rupesh Sharma MD [address] [place] [address] DEPT [place] [address] 04/20/2025 9:00 AM CDT Office Visit [facility] - Internal Med [address] [place] [address] [place] [phone] Neftaly Valerio MD [address] [place] [address] 05/04/2025 10:00 AM CDT Office Visit [facility] - Rheumatology [facility]5 [facility] [place] [phone] Gala Post, AUTOMATIC STEEL TIE ADJUSTER-MANAGER LOGISTIC [address] [address] Kenny Braun MD [address] [place] [address] 2L [place] [phone] 06/07/2025 1:50 PM CDT Office Visit [facility] - Nephrology [address] [place] [address], [place] [phone] Roxana Gallardo MD [address] [place] [address] 2L [place] [address] 06/30/2025 9:40 AM CDT [facility] General Dermatology [address] [place] [phone] [place] [address] [place] [address] 3L [place] [address] 09/04/2025 9:20 AM CDT Appointment [facility] [address] [place] [phone] Josie Almonte, AUTOMATIC STEEL TIE ADJUSTER-MANAGER LOGISTIC [address] [place] [address] DEPT [place] [address] 09/13/2025 10:30 AM CDT [facility] Urology [address] [place] [address] Josie Almonte, AUTOMATIC STEEL TIE ADJUSTER-MANAGER LOGISTIC [address] [facility] DEPT OF [place]ICAL [place] [address] 12/11/2025 9:00 AM COBOL MAINFRAME DEVELOPER Appointment [facility] [address] [place] [address] 03/14/2026 10:10 AM CDT Office Visit [facility] - PASTE PLANT SUPERVISOR [address] [place] [phone] Titus Kong MD [address] [place] [address] 03/19/2026 9:10 AM CDT Office Visit [facility] - PASTE PLANT SUPERVISOR [address] [place] [address] Titus Kong MD [address] [place] [address] documented as of this encounter Visit Diagnoses Not on filedocumented in this encounter Care Teams Basting Puller Relationship Specialty Start Date End Date Emilia Hernandez APRN-MANAGER LOGISTIC PCP - General 04/30/18 06/17/21 Edgar Watson MD [address] [facility] 2L DIV OF GEN [place] [address] PCP - General 06/18/21 07/16/21 Emilia Hernandez APRN-MANAGER LOGISTIC [address] [facility] 2L DIV OF GEN [place] [address] PCP - General 07/17/21 11/12/21 Razia Coles AUTOMATIC STEEL TIE ADJUSTER-MANAGER LOGISTIC [address] [place] [address] PCP - General 11/13/21 12/07/22 Neftaly Valerio MD [address] [place] [address] PCP - General Internal Medicine 07/18/24 documented as of this encounter
--- OUTSIDE RECORDS SUMMARY | 2025-03-21 15:28 | XMS_ITS | Clinical Summary ---
Author Organization [facility] Address [address] [place] [address] Care Team Providers Care Central Aisle Cashier Name Role Phone Neftaly Valerio MD Primary Care Provider [phone] Source Comments [facility],non-owned Affiliates and Associated Physician Practices is amultiple site organization consisting of ambulatory clinics and hospital sitesin [place], [place], [place] and [place]. This disclosure is being madepursuant to the Care Everywhere program and may not contain all information available regarding this patient. Last updated 18.[facility] Allergies Active Allergy Reactions Criticality Noted Date Comments Sulfa Drugs Rash Medium 11/22/2019 Sulfacetamide Rash Medium 02/14/2025 Medications * Be aware that medications may not be up to date on this document. Alwaysverify current medications with the patient. vitamin D, ergocalciferol , (Drisdol) 1.25 MG (01448 UT) capsuleIndicat ions:Vitamin D deficiency Take 1 [...] 12/13/2024 Assessment & Plan (12/13/2024 1:51 PM INVESTMENT EXECUTIVE): - NSAIDs and tylenol as needed - Ref to physical therapy - Discussed that is likely at least somewhat contributed to by obesity, weight loss will often be helpful Prediabetes 12/13/2024 Assessment & Plan (12/13/2024 1:53 PM INVESTMENT EXECUTIVE): - Weight related complication - Check A1c - continue lifestyle changes to diet and exercise as able - Recommend GLP-1 see obesity section Preventative health care 12/13/2024 Assessment & Plan (12/13/2024 1:55 PM INVESTMENT EXECUTIVE): The 10-year ASCVD risk score (Alena LENTZ, [...] care then ended up with admission at [facility] - Appears to be resolved at this [...] 07/29/2024 Assessment & Plan (12/13/2024 1:58 PM INVESTMENT EXECUTIVE): - Following with vascular surgery Chronic venous [...] ozempic Assessment & Plan (12/13/2024 1:57 PM INVESTMENT EXECUTIVE): - Has been trying to lose weight [...] 09/17/2015 Assessment & Plan (12/13/2024 1:49 PM INVESTMENT EXECUTIVE): - Good control - Continue meds - [...] 11/24/2019 Assessment & Plan (10/27/2019 10:23 AM INVESTMENT EXECUTIVE): Based on appearance, consist with drug rash. Patient denies any new medications. Would not expect reaction of this severity from Bactrim after tolerating previously for 7 days. Based on exam, ok to stop Bactrim--would is healing well. Zyrtec 20mg daily for 3 days then 10mg daily Stop new soap Cellulitis of right lower extremity 10/27/2019 12/13/2024 Assessment & Plan (10/27/2019 10:24 AM INVESTMENT EXECUTIVE): Appears to be healing--ok to stop antibiotics [...] 03/17/2025 Telephone [facility] - GI [address] [place] [address] Rigoberto Long, ADRIA Follow-up 03/14/2025 10:30 AM CDT Office Visit [facility] - Internal Med [address] [place] [phone] Tachycardia (Primary Dx); Atrial fibrillation, unspecified type (HCC); Moderate persistent asthma without complication (HCC) 03/14/2025 Refill [facility] - Clinical Pharmacy [address] [place] [phone] Sandip Mejia Cristela MEDICATION REFILL 03/14/2025 Travel 03/13/2025 8:50 AM CDT Office Visit [facility] - LEAD SLOT TECHNICIAN [address] [place] [phone] Titus Kong MD Well woman exam with routine gynecological exam (Primary Dx) 03/13/2025 Travel 03/09/2025 Telephone [facility] - Internal Med [address] [place] [phone] Neftaly Valerio MD Shortness of Breath 03/08/2025 Results Follow-Up [facility] - Internal Med [address] [place] [phone] Neftaly Valerio MD 02/24/2025 Refill [facility] - Internal Med [address] [place] [phone] Neftaly Valerio MD MEDICATION REFILL 02/15/2025 10:15 AM CDT Office Visit [facility] - Vascular Surgery [address] [place] [phone] Margot North MD Chronic venous hypertension (idiopathic) with inflammation of bilateral lower extremity (Primary Dx) 02/15/2025 Travel 02/09/2025 Refill [facility] - Internal Med [address] [place] [phone] Neftaly Valerio MD MEDICATION REFILL 02/08/2025 10:30 AM CDT Office Visit [facility] - Urology [facility] [facility] [address] [place] [address] Joise Almonte, ENEIDA-HELEN Kidney stone (Primary Dx); Urgency incontinence; Urinary frequency 02/08/2025 Travel 02/02/2025 4:00 PM CDT Office Visit [facility] - Internal Med [address] [place] [phone] Neftaly Valerio MD Class 2 severe obesity [...] left lower extremity 02/02/2025 Travel 02/02/2025 Telephone [facility] - Internal Med [address] [place] [phone] Neftaly Valerio MD Cellulitis 02/01/2025 1:50 PM CDT Office Visit [facility] - Nephrology [address] [place] [address], [place] [address] Josie Almonte, CINNAMON GRINDER-JACKSCREW WORKER Roxana Gallardo MD Essential hypertension (Primary Dx); Kidney stone; Hypercholesterolemia; Vitamin D deficiency; Kidney stone on left side; Other microscopic hematuria; Edema, unspecified type; Mixed hyperlipidemia; Prediabetes; Hyperuricemia 02/01/2025 Travel 01/27/2025 Refill [facility] Internal Med [address] [place] [phone] Neftaly Valerio MD MEDICATION REFILL 01/25/2025 Telephone [facility] Internal Med [address] [place] [phone] Neftaly Valerio MD Hospital Admission; Patient Requested Call 01/23/2025 Travel 01/22/2025 Telephone [facility] - Internal Med [address] [facility] [place] [address] Melo Orr MD Advice Only; Cellulitis 01/02/2025 Travel 12/26/2024 Telephone [facility] - Internal Med [address] [facility] [place] [phone] Neftaly Valerio MD Screening Colonoscopy from Last [...] on file Legal Sex Female 7:34 AM INVESTMENT EXECUTIVE Gender Identity Not on file Sexual Orientation Not on file 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 file Not [...] Office Visit [facility] - Ophthalmology [address] [place] [phone] Rupesh Sharma MD [address] [place] [address] [place] [phone] 04/20/2025 9:00 AM CDT Office Visit [facility] - Internal Med [facility] [facility], [place] [phone] Neftaly Valerio MD [address] [place] [address] 05/04/2025 10:00 AM CDT [facility] Rheumatology [address] [place] [address], [place] [phone] Gala Post, CINNAMON GRINDER-JACKSCREW WORKER [address] [phone] Kenny Braun MD [address] [place] [address] [address] [place] [phone] 06/07/2025 1:50 PM CDT Office Visit [facility] - Nephrology [address] [place] [address], [place] [phone] Roxana Gallardo MD [address] [place] [address] [address] [place] [address] 06/30/2025 9:40 AM CDT [facility] General Dermatology [address], [facility] [address] [place] [address] Robyn Babcock MD [address] [place] [address] [address] [place] [address] 09/04/2025 9:20 AM CDT Appointment [facility] CAT SCAN [address] [place] [phone] Josie Almonte, CINNAMON GRINDER-JACKSCREW WORKER [address] [place] [address] DE[place] [address] 09/13/2025 10:30 AM CDT Office Visit [facility] - Urology [address] [place] [address] Josie Almonte, CINNAMON GRINDER-JACKSCREW WORKER [address] [facility] DEPT [place] [address] 12/11/2025 9:00 AM INVESTMENT EXECUTIVE Appointment [facility] Breast [facility] [address] [place] [address] 03/14/2026 10:10 AM CDT Office Visit [facility] Group - LEAD SLOT TECHNICIAN [address] [place] [address] Titus Kong MD [address] [place] [address] 03/19/2026 9:10 AM CDT Office Visit [facility] - LEAD SLOT TECHNICIAN [address] [place], [place] [address] [address] [place] [phone] Titus Kong MD [address] [place] [address] Health Maintenance Due Date Last Done Comments [...] last dose Medical Devices Implanted Type Area Dynamic Balancer Device Identifier Shelf Expiration Date Model / Serial / Lot Stent Uret 6fr 22cm Pgtl Crv Tpr Tip Implanted:Qty: 1 on 11/27/2018 by Luis Daniel Paz MD at [facility] Left: Ureter Aggios Scimed 08/19/2021 [id number] / / [id number] Procedures Procedure Name Priority Date/Time Associated Diagnosis Comments COLOGUARD TEST Routine 02/25/2025 11:30 AM CDT Special screening for malignant neoplasms, colon HEMOGLOBIN A1C Routine 12/09/2024 12:00 PM INVESTMENT EXECUTIVE Morbid obesity Prediabetes Essential hypertension MAMMO BILAT SCREENING W JAVAN Routine 12/05/2024 10:21 AM INVESTMENT EXECUTIVE Visit for screening mammogram HEPATITIS C AB SCREEN RFLX NAAT QUANT STAT 11/26/2018 2:10 PM INVESTMENT EXECUTIVE DEXA BONE DENSITY AXIAL SKELETON Routine 01/04/2014 9:48 AM INVESTMENT EXECUTIVE from Last 3 Months or Most Recently Relevant to Health Maintenance Results * [id number] COLOGUARD TEST *Associate with Z12.11 OR Z12.12 Dx Codes* (02/25/2025 11:30 AM CDT) Cologuard Negative Negative [facility] Comment: NEGATIVE TEST RESULT. A negative [...] Mitchell et al, N Engl J Med 2014;370(14):2684-9656) The normal value (reference range) for this assay is negative. COLOGUARD RE-SCREENING RECOMMENDATION: Periodic colorectal cancer screening is an important part of preventive healthcare for asymptomatic individuals at average risk for colorectal cancer. Following a negative Cologuard result, the [place] Cancer Society and U.S. Multi-Society Task Force screening guidelines recommend a Cologuard re-screening interval of 3 years. References: [place] [employer] Guideline for Colorectal Cancer Screening: https://www.cancer.org/cancer/ondho-baizyg-ixovfj/lpyemiofr-tycerjxoh-cixqvzs/ acs-recommendations.html.; Reinier DK, Mari CR, Sajan CrawfordK, Colorectal Cancer Screening: Recommendations for Physicians and Patients from the U.S. Multi-Society Task Force on Colorectal Cancer Screening , Am J Gastroenterology 2017; 112:6519-4699. TEST DESCRIPTION: Composite algorithmic analysis of stool [...] (Gilbert Michael al, N Engl J Med 2014;370(14):0236-9289.) Cologuard may produce a false negative or false positive result (no colorectal cancer or precancerous polyp present at colonoscopy follow up). A negative Cologuard test result does not guarantee the absence of CRC or advanced adenoma (pre-cancer). The current Cologuard screening interval is every 3 years. ([place] Cancer Society and U.S. Multi-Society Task Force). Cologuard performance data in a 10,000 patient pivotal study using colonoscopy as the reference method can be accessed at the following location: www.Smart [employer].Gojimo/results. Additional description of the Cologuard test process, warnings and precautions can be found at www.Ratifyrd.com. Stool STOOL SPECIMEN / Unknown 02/25/2025 11:30 AM CDT 02/26/2025 10:22 PM CDT Neftaly Valerio MD LAB - CHEMISTRY ORDERABLES Fi nal Result Performing Organization Address City/[facility]/ZIP Co de Phone Number [employer] [address] [facility] [address] [address] [place] [address] [employer] [address] [place] [address] * (ABNORMAL) HEMOGLOBIN A1C (12/09/2024 12:00 PM INVESTMENT EXECUTIVE) Hemoglobin A1c 5.8(H) 4.8 - 5.6 % [facility] INSURANCE BILL Comment: Prediabetes: 5.7 - 6.4 Diabetes: >6.4 Glycemic control for adults with diabetes: <7.0 Blood BLOOD SPECIMEN / Unknown 12/09/2024 12:00 PM INVESTMENT EXECUTIVE 12/09/2024 Narrative [facility] INSURANCE BILL - 12/10/2024 9:09 AM INVESTMENT EXECUTIVE Performed at: [address] [place] [id number] Social Insurance Specialist: Amadou Mckeon PhD, Phone: [phone] Neftaly Valerio MD LAB - CHEMISTRY ORDERABLES Fi nal Result Performing Organization Address [facility] Co de Phone Number [facility] INSURANCE BILL [address] [place] [address] * Mammo Bilat Screening W Javan (12/05/2024 10:21 AM INVESTMENT EXECUTIVE) Anatomical Region Laterality Modality Breast Bilateral Mammography 12/05/2024 2:10 PM INVESTMENT EXECUTIVE Impressions 12/05/2024 2:18 PM INVESTMENT EXECUTIVE IMPRESSION: No mammographic evidence of malignancy in either breast. ASSESSMENT: BIRADS Category 1: Negative mammogram. RECOMMENDATION: Bilateral screening mammogram in one year. Thank you for allowing us to participate in the care of your patient. [facility] utilizes [employer] as a reminder system to notify patients of their next recommended mammogram. > Interpreting Provider: Vanessa Vazquez MD on 12/05/2024 2:18 PM Narrative 12/05/2024 2:18 PM INVESTMENT EXECUTIVE EXAMINATION: Digital screening mammogram. Low-dose full-field digital [...] SCREEN RFLX NAAT QUANT (11/26/2018 2:10 PM INVESTMENT EXECUTIVE) Hepatitis C Antibody Non-react muna Non-reac tive 11/26/2018 2:57 PM INVESTMENT EXECUTIVE [facility] Comment: Hepatitis C Antibody screen indicates no serologic evidence of past or current infection with Hepatitis C Virus. Patients with unexplained liver disease who are immunocompromised or suspected of having acute Hepatitis C infection may benefit from Nucleic Acid Test (CHELI) for Hepatitis C Viral RNA to confirm Hepatitis C status. Blood BLOOD SPECIMEN / Unknown Venipuncture / Unknown 11/26/2018 2:10 PM INVESTMENT EXECUTIVE 11/26/2018 2:15 PM INVESTMENT EXECUTIVE Joycelyn Mann CINNAMON GRINDER-JACKSCREW WORKER LAB - CHEMISTRY ORDERABL ES Final Result Performing Organization Address City/State/[facility] Co de Phone Number [address] [phone] * DEXA BONE DENSITY AXIAL SKELETON (01/04/2014 9:48 AM INVESTMENT EXECUTIVE) Anatomical Region Laterality Modality Other Narrative 01/04/2014 3:43 PM INVESTMENT EXECUTIVE Examination: Dual energy x-ray absorptiometry of the lumbar spine and hip. Clinical Indication: Postmenopausal, fracture right foot. Findings: Detailed data from the exam is sent separately to the ordering physician and is also available on [employer], the Radiology Department's computerized picture archive system [...] the orderingphysician and is also available on [employer], the Radiology Department'[employer] picture archive system SUMMARY: No prior study [...] D.O. on 01/04/20143:43 PM . Emilia Hernandez CINNAMON GRINDER-JACKSCREW WORKER DEXA ORDERABLES Fin al Result from Last 3 Months or Most Recently Relevant to Health Maintenance Insurance T Advance Directives * Full Code (Latest Code Status on File) Date Activated Date Inactivated Comments 11/26/2018 5:01 PM 11/27/2018 5:02 PM Care Teams Central Aisle Cashier Relationship Specialty Start Date End Date Neftaly Valerio MD [address] [place] [address] PCP - General Internal Medicine 07/18/24
--- OUTSIDE RECORDS SUMMARY | 2025-03-21 15:28 | XMS_ITS | Encounter Summary ---
Author Organization [facility] Address [address] [facility] [place] [address] Care Team Providers Care Mental Health Practitioner Name Role Phone Emilia Hernandez RESOURCE SPECIALIST TEACHER-SHEET ROCK INSTALLER Primary Care Provi scarlett Edgar Watson MD Primary Care Provider [phone] Emilia Hernandez RESOURCE SPECIALIST TEACHER-SHEET ROCK INSTALLER Primary Care Provi scarlett Razia Coles RESOURCE SPECIALIST TEACHER-SHEET ROCK INSTALLER Primary Care Provider [phone] Neftaly Valerio MD Primary Care Provider [phone] Encounter Details Date Type Department Care Team (Late st Contact Info) Description 12/01/2018 Telephone [facility] [address] [place] [address] Luis Daniel Paz MD [address] [place] [address] Social History Tobacco Use Types Packs/Day Years Used Date Smoking Tobacco: Never Smokeless Tobacco: Never Alcohol Use Standard Drinks/Week Comments No 0 (1 standard drink = 0.6 oz pur e alcohol) Comments No Sex and Gender Information Value Date Recorded Sex Assigned at Not on file Legal Sex Female 7:34 AM DEBARKER OPERATOR Gender Identity Not on file Sexual Orientation Not on file 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 Info mailed to home RKER OPERATOR documented in this encounter Plan of Treatment Upcoming Encounters Date Type Department Care Team (Late st Contact Info) Description 04/04/2025 8:15 AM CDT Office Visit [facility] - Ophthalmology [address] [place] [address] Rupesh Sharma MD [address] [place] [address] [place] [address] 04/20/2025 9:00 AM CDT [facility] [address] [place] [address] Neftaly Valerio MD [facility] [place] [address] 05/04/2025 10:00 AM CDT Office Visit [facility] - Rheumatology [address] [place] [address], [place] [phone] SincereGala, RESOURCE SPECIALIST TEACHER-SHEET ROCK INSTALLER [address] [address] Kenny Braun MD [address] [place] [address] [address] [place] [address] 06/07/2025 1:50 PM CDT [facility] [address] [place] [address] [place] [phone] Roxana Gallardo MD [address] [place] [address] [address] [place] [address] 06/30/2025 9:40 AM CDT [facility] General Dermatology [address] [place] [address] Robyn Babcock MD [address] [place] [address] [address] [place] [address] 09/04/2025 9:20 AM CDT Appointment [facility] CAT SCAN [address] [place] [address] Josie Almonte, RESOURCE SPECIALIST TEACHER-SHEET ROCK INSTALLER [address] [place] [address] [place] [address] 09/13/2025 10:30 AM CDT Office Visit [facility] - Urology [address] [place] [address] Josie Almonte, RESOURCE SPECIALIST TEACHER-SHEET ROCK INSTALLER [address] [place] [address] [place] [address] 12/11/2025 9:00 AM DEBARKER OPERATOR Appointment [facility] Breast Care [address] [place] [address] 03/14/2026 10:10 AM CDT Office Visit [facility] - EVAPORATOR OPERATOR MOLASSES [address] [place] [address] Titus Kong MD [address] [place] [address] 03/19/2026 9:10 AM CDT Office Visit [facility] - EVAPORATOR OPERATOR MOLASSES [address] [facility] [address] [place] [address] Titus Kong MD [address] [place] [address] documented as of this encounter Visit Diagnoses Not on filedocumented in this encounter Care Teams Mental Health Practitioner Relationship Specialty Start Date End Date Emilia Hernandez RESOURCE SPECIALIST TEACHER-SHEET ROCK INSTALLER PCP - General 04/30/18 06/17/21 Edgar Watson MD [address] [facility] 2L [place] [address] PCP - General 06/18/21 07/16/21 Emilia Hernandez RESOURCE SPECIALIST TEACHER-SHEET ROCK INSTALLER [address] [facility] [address] [place] [address] PCP - General 07/17/21 11/12/21 Razia Coles RESOURCE SPECIALIST TEACHER-SHEET ROCK INSTALLER [address] [place] [address] PCP - General 11/13/21 12/07/22 Neftaly Valerio MD [address] [place] [address] PCP - General Internal Medicine 07/18/24 documented as of this encounter
--- OUTSIDE RECORDS SUMMARY | 2025-03-21 15:28 | XMS_ITS | Encounter Summary ---
Author Organization [facility] Address [address] [facility] [place] [address] Care Team Providers Care Chief Inspector Name Role Phone Neftaly Valerio MD Primary Care Provider [phone] Encounter Details Date Type Department Care Team (Late st Contact Info) Description 03/08/2025 Results Follow-Up [facility] - Internal Med [address] [facility], [place] [phone] Neftaly Valerio MD [address] [place], [place] [phone] Social History Tobacco Use Types Packs/Day Years Used Date Smoking Tobacco: Never Smokeless Tobacco: Never Alcohol Use Standard Drinks/Week Comments No 0 (1 standard drink = 0.6 oz pur e alcohol) PHQ-2 Answer Date Recorded Patient Health Questionnaire-2 Score 0 02/02/2025 Comments No Sex and Gender Information Value Date Recorded Sex Assigned at Not on file Legal Sex Female 7:34 AM SPRAY DYER Gender Identity Not on file Sexual Orientation Not on file 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 Not [...] Office Visit [facility] - Ophthalmology [address] [place] [phone] Rupesh Sharma MD [address] [place] [address] DE[place] [address] 04/20/2025 9:00 AM CDT Office [facility] Med [address] [place] [phone] Neftaly Valerio MD [facility] [place] [place] [address] 05/04/2025 10:00 AM CDT Office [facility] - Rheumatology [address] [place] [phone] Gala Post APRN-[facility] [phone] Kenny Braun MD [address] [place] [address] 2L [place] [phone] 06/07/2025 1:50 PM CDT Office Visit [facility] - Nephrology [address] [facility], [place] [phone] Roxana Gallardo MD [address] [facility] 2L [place] [address] 06/30/2025 9:40 AM CDT Office [facility] - General Dermatology [address] [place] [phone] Robyn Babcock MD [address] [facility] 3L [place] [address] 09/04/2025 9:20 AM CDT Appointment [facility] CAT SCAN [address] [place] [address] Josie Almonte, AREA FIELD MANAGER-ICU CLERK [address] [facility] DEPT [place] [address] 09/13/2025 10:30 AM CDT Office Visit [facility] - Urology [address] [place] [address] Josie Almonte, AREA FIELD MANAGER-ICU CLERK [address] [facility] DEPT [place] [address] 12/11/2025 9:00 AM SPRAY DYER Appointment [facility] Breast Care [address] [facility] [address] [place] [address] 03/14/2026 10:10 AM CDT Office Visit [facility] - BETA TESTER [address] [facility] [address] [place] [phone] Titus Kong MD [address] [address] 03/19/2026 9:10 AM CDT Office Visit [facility] - BETA TESTER [address] [facility] [address] [place] [phone] Titus Kong MD [address] [place] [address] documented as of this encounter Goals Goal [...] on filedocumented in this encounter Care Teams Chief Inspector Relationship Specialty Start Date End Date Neftaly Valerio MD [address] [place] [address] PCP - General Internal Medicine 07/18/24 documented as of this encounter
--- OUTSIDE RECORDS SUMMARY | 2025-03-21 15:28 | XMS_ITS | Encounter Summary ---
Author Organization [facility] Address [address] [place] [address] Care Team Providers Care Thumb Sewer Name Role Phone Neftaly Sanchez MD Primary Care Provider [phone] Encounter Details Date Type Department Care Team (Late st Contact Info) Description 03/08/2025 Telephone [facility] Cardiology [address] [place] [address] Raimundo Casey MD [address] [address] Social History Tobacco Use Types [...] on filedocumented in this encounter Care Teams Thumb Sewer Relationship Specialty Start Date End Date Neftaly Sanchez MD [address] [phone] PCP - General General Surgery 02/14/25 documented as of this encounter
--- OUTSIDE RECORDS SUMMARY | 2025-03-21 15:28 | XMS_ITS | Referral Summary ---
Author Organization [facility] Address [address] [place] [phone] Care Team Providers Care Wireless Sales Representative Name Role Phone Neftaly Sanchez MD Primary Care Provider [phone] Encounters Date Type Department Care Team Description 03/08/2025 Telephone [facility] Cardiology [address] [place] [address] [place] [phone] Raimundo Casey MD 02/14/2025 9:00 AM CDT Office Visit [facility] Cardiology [address] [place] [address] [address] [place] [phone] Kaley Weaver NP Paroxysmal atrial fibrillation (HCC) (Primary Dx); Essential hypertension; Class 2 severe obesity due to excess calories with serious comorbidity and body mass index (BMI) of 37.0 to 37.9 in adult (HCC); Encounter for anticoagulation discussion and counseling; Hospital discharge follow-up 02/02/2025 Orders Only [facility] Cardiology [address] [place] [address] [address] [place] [phone] Mookie Owens MD 01/26/2025 Telephone [facility] Cardiology [address] [place] [address] [address] [place] [phone] Mookie Owens MD from Last 3 [...] CARDIOLOGY DOCUMENT SCAN Routine 025 12:32 PM COMPUTER APPLICATIONS INSTRUCTOR from Last 3 Months Results * Cardiology Document Scan (01/26/2025 12:32 PM COMPUTER APPLICATIONS INSTRUCTOR) Anatomical Region Laterality Modality Other Mookie Owens MD CV CARDIAC SERVICES PROCEDURES F inal Result from Last 3 Months Insurance [facility] CHOICE [facility]/PPO Address: [facility] [address] [place] [address] [facility] Care Teams Wireless Sales Representative Relationship Specialty Start Date End Date Neftaly Sanchez MD [address] [phone] PCP - General General Surgery 02/14/25
[2025-03-21] MEDS: dilTIAZem 100 MG/100 ML 100 MG/100 ML BAG IV CONT (16:01)
--- NOTE | 2025-03-21 17:01 | ADMGEN ---
This patient, Amaris Butler, was admitted to IMU Room 209-01. Patient/family oriented to hospital policies and general routines including ID bracelet, bed and alarms, visiting hours, pain management, procedures, bathroom and other care routines, personal items, smoking policy, room service/diet, and visiting hours. Information on how to activate the Rapid Response Team has been discussed. Patient/Family are encouraged to report perceived risks to care and to ask questions if they do not understand what they are told or what they should do.
[2025-03-21 17:49] LABS: Troponin I < 0.012 ng/mL (0.000-0.034)
--- NOTE | 2025-03-21 18:22 | P.HP_ITS ---
H&P: HPI History of Present Illness Date/Time: 03/21/25 18:22 Chief Complaint: A fib RVR Narrative: This is a 69-year-old female with a significant past medical history of hyperlipidemia, hypertension, arthritis, kidney stones, AFib who presented to the hospital with complaints of shortness of breath over the last week and AFib RVR. Patient was previously admitted on 01/24/2025 with similar complaints of AFib RVR and cellulitis. During that time she was started on Cardizem bolus and drip and then transition to amiodarone bolus and drip. Cardiology was consulted and was planning on taking her for cardioversion however she converted back to normal sinus rhythm overnight on the amiodarone infusion. She was discharged with metoprolol 25 mg b.i.d. and Eliquis. Today she came back due to increased shortness of breath with exertion and she reported to have vein some left-sided chest pain intermittently. She states that she checked her blood pressure at home and noted that her heart rate was in the 120s prompting her to come to the hospital for further evaluation. Workup in the hospital included a chest x-ray which showed stable central venous congestive changes versus pulmonary arterial hypertension. Initial labs showed a normal white blood cell count of 8.0, hemoglobin 10.2, troponin negative x2, proBNP 2610. EKG showed AFib with RVR with a rate of 156, QTC 442. Patient was given 3 doses of IV Lopressor without any significant change while in the ED. she was then started on Cardizem bolus and started on Cardizem infusion. She was transferred to IMU. Review of Systems Review of Systems: All systems reviewed & are unremarkable except as noted in HPI and below PMFSH Past Medical History Medical History Kidney stone Arthritis History of hyperlipidemia Cellulitis of right leg Hypertension Surgical History Surgical History History of bunionectomy Family History Family History Mother Acute myocardial infarction Hypertension Father Renal failure Social History Social History Smoking status: Never smoker Second hand tobacco smoke exposure: No Alcohol intake: never Substance use: never Do You Feel Safe in your Home?: Yes Lack of Transportation: No Lack of Food: Never True Current Housing: I Have Housing Concerned About Future Housing: No Difficulty Paying Gas/Electric Bills: No Difficulty Paying for Meds: No Currently Unemployed: No Education: Trade/Vocational Certificate Difficulty w/ Childcare or Family Care: No Gender identity (if verbalized by the patient): Female Spiritual care concerns: No Meds Home Medications and Allergies Home Medications ?Medication ?Instructions ?Recorded ?Confirmed ?Type atorvastatin 20 mg tablet 20 mg PO DAILY 11/26/23 03/21/25 History ergocalciferol (vitamin D2) 1,250 1,250 mcg PO WEEKLY 11/26/23 03/21/25 History mcg (50,000 unit) capsule hydrochlorothiazide 25 mg tablet 25 mg PO DAILY 11/26/23 03/21/25 History metoprolol succinate 50 mg 50 mg PO DAILY 11/26/23 03/21/25 History tablet,extended release 24 hr trandolapril 2 mg tablet 2 mg PO DAILY 11/26/23 03/21/25 History apixaban 5 mg tablet (Eliquis) 5 mg PO Q12HR #30 tabs 01/26/25 03/21/25 Rx metoprolol tartrate 25 mg tablet 25 mg PO Q12HR #60 tabs 01/26/25 03/21/25 Rx allopurinol 100 mg tablet 200 mg PO DAILY 03/21/25 03/21/25 History potassium citrate 15 mEq (1,620 15 meq PO BID 03/21/25 03/21/25 History mg) tablet,extended release Allergies Allergy/AdvReac Type Severity Reaction Status Date / Time doxycycline Allergy Unknown Unknown Verified 03/21/25 13:34 Sulfa (Sulfonamide Allergy Unknown Verified 03/21/25 13:34 Antibiotics) sulfamethoxazole (From Allergy Rash Verified 03/21/25 13:34 Bactrim) trimethoprim (From Bactrim) Allergy Rash Verified 03/21/25 13:34 Vital Signs Vital Signs - 24 hr 03/21/25 13:56 03/21/25 14:11 03/21/25 14:20 Temperature 98.9 F Pulse Rate 160 H 154 H Respiratory Rate 14 Blood Pressure 117/78 Pulse Oximetry 97 99 Oxygen Delivery Room Air Room Air 03/21/25 14:22 03/21/25 14:31 03/21/25 14:51 Temperature Pulse Rate 142 H 156 H 139 H Respiratory Rate 20 18 Blood Pressure 122/94 H 126/99 H Pulse Oximetry 97 96 Oxygen Delivery 03/21/25 15:13 03/21/25 15:15 03/21/25 15:16 Temperature Pulse Rate 141 H 131 H 139 H Respiratory Rate 34 H 18 18 Blood Pressure 129/107 H Pulse Oximetry 97 99 96 Oxygen Delivery 03/21/25 15:22 03/21/25 15:30 03/21/25 15:37 Temperature Pulse Rate 149 H 138 H 132 H Respiratory Rate 20 20 Blood Pressure Pulse Oximetry 96 97 Oxygen Delivery 03/21/25 16:01 03/21/25 16:03 03/21/25 16:33 Temperature Pulse Rate 148 H 132 H 145 H Respiratory Rate 14 Blood Pressure 123/94 H 123/94 H 133/69 Pulse Oximetry 100 Oxygen Delivery 03/21/25 16:40 03/21/25 18:00 03/21/25 18:21 Temperature Pulse Rate 138 H 138 H 138 H Respiratory Rate 14 Blood Pressure 133/69 133/69 133/69 Pulse Oximetry 100 Oxygen Delivery Exam Narrative: General: In no acute distress, well nourished Head: atraumatic, no encephalopathy Eyes: PERRLA, sclera clear ENT: moist mucous membranes, nasal passages clear Neck: supple, no JVD, no adenopathy, trachea midline Cardiac: Normal S1 and S2. Irregular rate and rhythm, AFib RVR on monitor No murmur, gallops or friction rubs, peripheral pulses intact. Respiratory: Lungs clear to auscultation, no adventitious lung sounds, currently on room air Gastrointestinal: soft, non-distended, non-tender, normoactive bowel sounds. : voiding without difficulty. Extremities: moves all extremities well, no edema Skin: clean, dry, intact. No wounds or lesions. Neuro: Alert and oriented x4, cranial nerves intact, no neuro deficits. Psych: normal mood, normal affect, interactive H&P: Results Labs Labs: Short CBC 03/21/25 Range/Units 14:06 WBC 8.0 (4.5-10.0) K/mm3 Hgb 10.2 L (12.0-15.0) g/dL Hct 33.5 L (37.0-47.0) % Plt Count 210 (150-375) k/mm3 BMP 03/21/25 14:06 Sodium 141 Potassium 3.8 Chloride 105 Carbon Dioxide 27 BUN 26 H Creatinine 0.87 Glucose 112 H Calcium 9.2 Cardiac Enzymes 03/21/25 03/21/25 Range/Units 14:06 17:17 Troponin I < 0.012 < 0.012 (0.000-0.034) ng/mL Liver Function 03/21/25 Range/Units 14:06 Total Bilirubin 0.6 (0.2-1.3) mg/dL AST 22 (14-36) U/L ALT 39 H (6-35) U/L Alkaline Phosphatase 97 (38-126) U/L Albumin 4.0 (3.5-5.1) g/dL Imaging Chest x-ray: Radiologist's impression: PA and lateral views of the chest: Comparison: 01/24/2025 Findings: The lungs are clear, without evidence of focal consolidation or pleural effusion. Cardiomediastinal silhouette is stable. Bones and soft tissues are unremarkable. Impression: Stable central venous congestive change versus pulmonary artery hypertension. No acute abnormality seen. Reviewed, dictated and finalized at location . Assessment and Plan Assessment and plan (1) Atrial fibrillation with RVR: Code(s): I48.91 - Unspecified atrial fibrillation Status: Acute Assessment and Plan: * Continue Eliquis * Hold metoprolol for now * Patient was given IV metoprolol in the ED without any improvement in her heart rate and then started on Cardizem bolus and drip.--was later called by bedside nursing who states that her heart rate is still in the 120s to low 130s on 10 mg Cardizem infusion * Change to amiodarone bolus and infusion as this is what converted her before on previous recent admission * Cardiology consulted (2) Hypertension: Code(s): I10 - Essential (primary) hypertension Status: Acute Assessment and Plan: * Blood pressure ranging 122/94 to 133/69 * Continue hydrochlorothiazide * Trandolapril is on hold as it is non formulary (3) History of hyperlipidemia: Code(s): Z86.39 - Personal history of other endocrine, nutritional and metabolic disease Status: Acute Assessment and Plan: * Continue atorvastatin Quality VTE Prophylaxis VTE prophylaxis: pharmacologic ordered Hospitalist MIPS Advance Care Plan I have confirmed that the patient's Advanced Care Plan is present, code status is documented, or surrogate decision maker is listed in patient medical record.: Yes Medication Reconciliation I have utilized all available resources to obtain, update and review the patients current medications (includes all prescriptions, OTC, herbals, cannabis, and nutritional supplements).: Yes
[2025-03-21] MEDS: AMIODARONE 150 MG/D5W 100 ML 150 MG/100 ML BAG 600 MG IV CONT ×2 (18:53→18:54)
[2025-03-21] MEDS: AMIODARONE 360 MG/D5W 200 ML 360 MG/200 ML BAG 33.33 MG IV CONT (19:30)
[2025-03-21 20:30] LABS: Troponin I < 0.012 ng/mL (0.000-0.034)
[2025-03-21] MEDS: APIXABAN 5 MG TABLET PO (20:35)
[2025-03-22] VITALS (31 sets, daily range): BP systolic 119–144; BP diastolic 73–100; PULSE 103–165; RESP 18–20; TEMP 36.4–36.9; O2SAT 95–98
[2025-03-22] MEDS: AMIODARONE 360 MG/D5W 200 ML 360 MG/200 ML BAG 16.67 MG IV CONT ×3 (01:23→20:42)
[2025-03-22 04:34] LABS: Basophils Percent Auto 0.1 % (0.2-1.2); Eosinophils Absolute Auto 0.1 K/mm3 (0-0.3); Eosinophils Percent Auto 0.9 % (0-4.4); Hematocrit 33.2 % (37.0-47.0); Hemoglobin 10.2 g/dL (12.0-15.0); Immature Granulocyte Absolute 0.02 K/mm3 (0.00-0.031); Immature Granulocyte Percent A 0.3 % (0-0.5); Lymphocytes Absolute Auto 1.69 K/mm3 (0.9-3.2); Lymphocytes Percent Auto 24.7 % (18.3-44.2); Mean Corpuscular HGB Conc 30.7 g/dl (32-36); Mean Corpuscular Hemoglobin 30.4 pg (26-34); Mean Corpuscular Volume 99.1 fl (80-100); Mean Platelet Volume 10.2 fl (7.4-10.4); Monocytes Absolute Auto 0.7 K/mm3 (0.1-0.6); Neutrophils Absolute Auto 4.4 K/mm3 (1.3-6.7); Platelet Count Result 187 k/mm3 (150-375); Red Blood Count 3.35 M/mm3 (4.2-5.4); Red Cell Distribution Width 16.7 % (11.5-14.5); White Blood Count 6.8 K/mm3 (4.5-10.0)
[2025-03-22 04:56] LABS: Uric Acid 6.7 mg/dL (2.5-7.5)
[2025-03-22 04:59] LABS: Alanine Aminotransferase 35 U/L (6-35); Albumin Level 3.8 g/dL (3.5-5.1); Alkaline Phosphatase 96 U/L (38-126); Anion Gap 8 mmol/L (4-12); Aspartate Amino Transferase 21 U/L (14-36); Bilirubin,Total 0.6 mg/dL (0.2-1.3); Blood Urea Nitrogen 22 mg/dL (7-17); Calcium 9.2 mg/dL (8.4-10.2); Carbon Dioxide 27 mmol/L (22-30); Chloride 104 mmol/L (98-107); Estimated CRCL calculation 70 ml/min; Estimated Glomerular Filt Rate > 60; Glucose 112 mg/dL (65-110); Magnesium 1.8 mg/dL (1.6-2.3); Potassium 3.7 mmol/L (3.4-5.0); Sodium 139 mmol/L (137-145)
[2025-03-22] MEDS: POTASSIUM CHLORIDE 20 MEQ ER TABLET 40 MEQ PO (05:28)
[2025-03-22] MEDS: METOPROLOL TARTRATE INJ 5 MG/5 ML VIAL IV PUSH (05:28)
[2025-03-22] MEDS: MAGNESIUM SULF 2 GM/WATER 50ML 2 GM/50 ML BAG IVPB (05:57)
[2025-03-22] MEDS: ATORVASTATIN 20 MG TABLET PO (08:00)
[2025-03-22] MEDS: hydroCHLOROthiazide 25 MG TABLET PO (08:00)
[2025-03-22] MEDS: allopurinoL 100 MG TABLET 200 MG PO (08:00)
[2025-03-22] MEDS: APIXABAN 5 MG TABLET PO ×2 (08:00→20:42)
--- NOTE | 2025-03-22 09:04 | PM.CNCAR ---
Assessment and Plan Assessment and plan (1) Atrial fibrillation with RVR: Code(s): I48.91 - Unspecified atrial fibrillation Status: Acute Plan 1. Atrial Flutter with RVR. CHADSVASC of 3 for age, gender, hypertension. 2. Hypertension 3. Hyperlipidemia 4. Lymphedema 5. 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 Discussed with her that the small increased risk of spontaneous cardioversion on annual risk of stroke. However she has been on uninterrupted anticoagulation insert discharge. -with the extremely dilated left atrium I think she may not remain in sinus rhythm despite successful cardioversion. Will try to rate control her. Newly consider cardioversion if unable to control her rate anemia noted agents. -she will need atrial flutter ablation as an outpatient -Continue Amiodarone drip and PO Metoprolol for now. -[id number] of 3 for age, gender, hypertension. 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 Already started on Eliquis 5mg BID, continue. History of Present Illness History of Present Illness Consult date/time: 03/22/25 09:04 Requesting physician: Rain Carranza APRN Consult reason: atrial fibrillation Reason For Visit: afib rvr Narrative: We are consulted for elevated HR. Amaris is a 69 year old female with hypertension, hyperlipidemia, lymphedema, history of transient global amnesia in November 2023 who presented with dyspnea and was found to be in RVR. Had similar presentation before and had a spontaneous conversion to NSR on amiodarone. No cardioversion was done She was initially started on Cardizem which was subsequently changed to amiodarone because of soft blood pressure Heart rate is still not adequately controlled at time of my evaluation Denies any chest pain Is anxious EKG shows atrial flutter with RVR TTE (01/2025) EF 60-65, LA severely dilated 113 ml Review of Systems Review of Systems: All systems reviewed & are unremarkable except as noted in HPI and below (HPI) [facility] Past Medical History Medical History Kidney stone Arthritis History of hyperlipidemia Cellulitis of right leg Hypertension Surgical History Surgical History History of bunionectomy Family History Family History Mother Acute myocardial infarction Hypertension Father Renal failure Social History Social History Smoking status: Never smoker Second hand tobacco smoke exposure: No Alcohol intake: never Substance use: never Do You Feel Safe in your Home?: Yes Lack of Transportation: No Lack of Food: Never True Current Housing: I Have Housing Concerned About Future Housing: No Difficulty Paying Gas/Electric Bills: No Difficulty Paying for Meds: No Currently Unemployed: No Education: Trade/Vocational Certificate Difficulty w/ Childcare or Family Care: No Gender identity (if verbalized by the patient): Female Spiritual care concerns: No Meds Home Medications and Allergies Home Medications ?Medication ?Instructions ?Recorded ?Confirmed ?Type atorvastatin 20 mg tablet 20 mg PO DAILY 11/26/23 03/21/25 History ergocalciferol (vitamin D2) 1,250 1,250 mcg PO WEEKLY 11/26/23 03/21/25 History mcg (50,000 unit) capsule hydrochlorothiazide 25 mg tablet 25 mg PO DAILY 11/26/23 03/21/25 History metoprolol succinate 50 mg 50 mg PO DAILY 11/26/23 03/21/25 History tablet,extended release 24 hr trandolapril 2 mg tablet 2 mg PO DAILY 11/26/23 03/21/25 History apixaban 5 mg tablet (Eliquis) 5 mg PO Q12HR #30 tabs 01/26/25 03/21/25 Rx metoprolol tartrate 25 mg tablet 25 mg PO Q12HR #60 tabs 01/26/25 03/21/25 Rx allopurinol 100 mg tablet 200 mg PO DAILY 03/21/25 03/21/25 History potassium citrate 15 mEq (1,620 15 meq PO BID 03/21/25 03/21/25 History mg) tablet,extended release Allergies Allergy/AdvReac Type Severity Reaction Status Date / Time doxycycline Allergy Unknown Unknown Verified 03/21/25 13:34 Sulfa (Sulfonamide Allergy Unknown Verified 03/21/25 13:34 Antibiotics) sulfamethoxazole (From Allergy Rash Verified 03/21/25 13:34 Bactrim) trimethoprim (From Bactrim) Allergy Rash Verified 03/21/25 13:34 Vital Signs Vital Signs - 24 hr 03/21/25 13:56 03/21/25 14:11 03/21/25 14:20 Temperature 37.2 C Pulse Rate 160 H 154 H Respiratory Rate 14 Blood Pressure 117/78 Pulse Oximetry 97 99 Oxygen Delivery Room Air Room Air Fraction of Inspired Oxygen 03/21/25 14:22 03/21/25 14:31 03/21/25 14:51 Temperature Pulse Rate 142 H 156 H 139 H Respiratory Rate 20 18 Blood Pressure 122/94 H 126/99 H Pulse Oximetry 97 96 Oxygen Delivery Fraction of Inspired Oxygen 03/21/25 15:13 03/21/25 15:15 03/21/25 15:16 Temperature Pulse Rate 141 H 131 H 139 H Respiratory Rate 34 H 18 18 Blood Pressure 129/107 H Pulse Oximetry 97 99 96 Oxygen Delivery Fraction of Inspired Oxygen 03/21/25 15:22 03/21/25 15:30 03/21/25 15:37 Temperature Pulse Rate 149 H 138 H 132 H Respiratory Rate 20 20 Blood Pressure Pulse Oximetry 96 97 Oxygen Delivery Fraction of Inspired Oxygen 03/21/25 16:01 03/21/25 16:03 03/21/25 16:33 Temperature Pulse Rate 148 H 132 H 145 H Respiratory Rate 14 Blood Pressure 123/94 H 123/94 H 133/69 Pulse Oximetry 100 Oxygen Delivery Fraction of Inspired Oxygen 03/21/25 16:40 03/21/25 18:00 03/21/25 18:21 Temperature Pulse Rate 138 H 138 H 138 H Respiratory Rate 14 Blood Pressure 133/69 133/69 133/69 Pulse Oximetry 100 Oxygen Delivery Fraction of Inspired Oxygen 03/21/25 18:53 03/21/25 18:54 03/21/25 18:54 Temperature Pulse Rate 125 H 125 H 125 H Respiratory Rate Blood Pressure Pulse Oximetry Oxygen Delivery Fraction of Inspired Oxygen 03/21/25 19:05 03/21/25 19:30 03/21/25 20:00 Temperature Pulse Rate 122 H 96 110 H Respiratory Rate Blood Pressure 108/67 Pulse Oximetry Oxygen Delivery Fraction of Inspired Oxygen 03/21/25 20:00 03/21/25 20:17 03/21/25 21:58 Temperature 36.7 C Pulse Rate 110 H 119 H 122 H Respiratory Rate 18 20 Blood Pressure 108/67 108/67 Pulse Oximetry 97 95 Oxygen Delivery Room Air Fraction of Inspired Oxygen 21 03/21/25 22:00 03/21/25 22:00 03/21/25 23:33 Temperature 37.0 C Pulse Rate 119 H 119 H 128 H Respiratory Rate 20 Blood Pressure 119/71 119/71 126/73 Pulse Oximetry 98 Oxygen Delivery Fraction of Inspired Oxygen 03/22/25 00:00 03/22/25 00:00 03/22/25 00:00 Temperature Pulse Rate 132 H 132 H Respiratory Rate Blood Pressure 126/73 Pulse Oximetry Oxygen Delivery Room Air Fraction of Inspired Oxygen 03/22/25 01:23 03/22/25 01:23 03/22/25 02:00 Temperature Pulse Rate 133 H 133 H 119 H Respiratory Rate Blood Pressure 126/73 126/73 124/75 Pulse Oximetry Oxygen Delivery Fraction of Inspired Oxygen 03/22/25 02:00 03/22/25 03:55 03/22/25 04:00 Temperature 36.8 C Pulse Rate 119 H 140 H 133 H Respiratory Rate 20 Blood Pressure 124/75 120/92 H 120/92 H Pulse Oximetry 97 Oxygen Delivery Fraction of Inspired Oxygen 03/22/25 04:00 03/22/25 04:00 03/22/25 05:28 Temperature Pulse Rate 137 H 126 H Respiratory Rate Blood Pressure Pulse Oximetry Oxygen Delivery Room Air Fraction of Inspired Oxygen 03/22/25 05:32 03/22/25 06:00 03/22/25 06:00 Temperature Pulse Rate 117 H 117 H Respiratory Rate Blood Pressure 142/94 H 137/80 137/80 Pulse Oximetry Oxygen Delivery Fraction of Inspired Oxygen 03/22/25 07:58 03/22/25 08:11 03/22/25 08:11 Temperature 36.4 C L Pulse Rate 131 H 133 H 133 H Respiratory Rate 18 Blood Pressure 119/85 137/80 137/80 Pulse Oximetry 95 Oxygen Delivery Fraction of Inspired Oxygen Exam Const: General: comfortable and no acute distress HENMT: Mouth: Yes moist mucous membranes Eyes: General: appearance normal, both eyes and all related structures Sclera: sclerae normal Resp: Effort & Inspection: normal respiratory effort Cardio: Rate: tachycardic Rhythm: abnormal rhythm irregularly irregular Heart sounds: no murmurs Skin: General skin exam: erythema Neuro: Speech: normal speech Psych: Mental Status: mental status grossly normal Affect: normal affect Results Labs and Meds 03/22/25 03:51 03/22/25 03:51 Lab results: Cardiac Enzymes 03/21/25 03/21/25 03/21/25 Range/Units 14:06 17:17 20:02 AST 22 (14-36) U/L Troponin I < 0.012 < 0.012 < 0.012 (0.000-0.034) ng/mL 03/22/25 Range/Units 03:51 AST 21 (14-36) U/L Troponin I (0.000-0.034) ng/mL Coagulation 03/21/25 Range/Units 14:06 PT 17.9 H (11.1-14.7) Seconds APTT 31.8 (22.3-36.8) Seconds CBC 03/21/25 03/22/25 Range/Units 14:06 03:51 WBC 8.0 6.8 (4.5-10.0) K/mm3 RBC 3.39 L 3.35 L (4.2-5.4) M/mm3 Hgb 10.2 L 10.2 L (12.0-15.0) g/dL Hct 33.5 L 33.2 L (37.0-47.0) % Plt Count 210 187 (150-375) k/mm3 Lymph # (Auto) 1.30 1.69 (0.9-3.2) K/mm3 [place] # (Auto) 0.9 H 0.7 H (0.1-0.6) K/mm3 Eos # (Auto) 0.0 0.1 (0-0.3) K/mm3 Baso # (Auto) 0.0 0.0 (0.0-0.1) K/mm3 Comprehensive Metabolic Panel 03/21/25 03/22/25 Range/Units 14:06 03:51 Sodium 141 139 (137-145) mmol/L Potassium 3.8 3.7 (3.4-5.0) mmol/L Chloride 105 104 (98-107) mmol/L Carbon Dioxide 27 27 (22-30) mmol/L BUN 26 H 22 H (7-17) mg/dL Creatinine 0.87 0.80 (0.7-1.0) mg/dL Glucose 112 H 112 H (65-110) mg/dL Calcium 9.2 9.2 (8.4-10.2) mg/dL AST 22 21 (14-36) U/L ALT 39 H 35 (6-35) U/L Alkaline Phosphatase 97 96 (38-126) U/L Total Protein 7.0 6.0 L (6.3-8.2) g/dL Albumin 4.0 3.8 (3.5-5.1) g/dL Intake and Output 03/21/25 03/22/25 03/22/25 23:59 07:59 15:59 Intake Total 334.1 493.5 36.4 Output Total 1100 Balance 334.1 -606.5 36.4 Intake: IV 214.1 193.5 36.4 Amiodarone 150 mg/D5w 100 ml 110 150 mg In 100 ml @ 600 mls/hr IV CONT .Q10M [facility] Rx#:[id number] Amiodarone 360 mg/D5w 200 ml 83.4 193.5 36.4 360 mg In 200 ml @ 0.5 MG/MIN 16.667 mls/hr IV CONT .Q12H [facility] Rx#:[id number] dilTIAZem 100 MG/100 ML 100 mg 20.7 In 100 ml @ 15 MG/HR 15 mls/hr IV CONT .Q6H40M [facility] Rx#: [id number] Oral 120 300 Output: Urine 1100 Patient Weight 03/22/25 23:59 Weight 106.3 kg
[2025-03-22] MEDS: DIGOXIN INJ 250 MCG/ML 2 ML AMP (*BKC) 500 MCG IV PUSH (10:50)
[2025-03-22] MEDS: FUROSEMIDE INJ 40 MG/4 ML VIAL IV PUSH ×2 (10:50→15:15)
[2025-03-22] MEDS: METOPROLOL TARTRATE 25 MG TABLET PO ×3 (12:32→23:56)
--- NOTE | 2025-03-22 13:35 | P.PNIM_ITS ---
Progress Note: A&P Assessment and Plan (1) Atrial fibrillation with RVR: Code(s): I48.91 - Unspecified atrial fibrillation Status: Acute Assessment and Plan: * Continue Eliquis * Hold metoprolol for now * Patient was given IV metoprolol in the ED without any improvement in her heart rate and then started on Cardizem bolus and drip.--was later called by bedside nursing who states that her heart rate is still in the 120s to low 130s on 10 mg Cardizem infusion * Continue amiodarone infusion * Cardiology following in added metoprolol 25 mg q.6 hour * Plan for KAMRYN and cardioversion tomorrow * Will likely need ablation on an outpatient basis for rate control * Continue IMU status (2) Hypertension: Code(s): I10 - Essential (primary) hypertension Status: Acute Assessment and Plan: * Blood pressure ranging 122/94 to 133/69 * Continue hydrochlorothiazide * Trandolapril is on hold as it is non formulary (3) History of hyperlipidemia: Code(s): Z86.39 - Personal history of other endocrine, nutritional and metabolic disease Status: Acute Assessment and Plan: * Continue atorvastatin Time Spent With Patient Time with patient: 15 - 25 minutes Subjective Date/time seen: 03/22/25 13:35 Interval history: interval history: This is a 69-year-old female with a significant past medical history of hyperlipidemia, hypertension, arthritis, kidney stones, AFib who presented to the hospital with complaints of shortness of breath over the last week and AFib RVR. Patient was previously admitted on 01/24/2025 with similar complaints of AFib RVR and cellulitis. During that time she was started on Cardizem bolus and drip and then transition to amiodarone bolus and drip. Cardiology was consulted and was planning on taking her for cardioversion however she converted back to normal sinus rhythm overnight on the amiodarone infusion. She was discharged with metoprolol 25 mg b.i.d. and Eliquis. Today she came back due to increased shortness of breath with exertion and she reported to have vein some left-sided chest pain intermittently. She states that she checked her blood pressure at home and noted that her heart rate was in the 120s prompting her to come to the hospital for further evaluation. Workup in the hospital included a chest x-ray which showed stable central venous congestive changes versus pulmonary arterial hypertension. Initial labs showed a normal white blood cell count of 8.0, hemoglobin 10.2, troponin negative x2, proBNP 2610. EKG showed AFib with RVR with a rate of 156, QTC 442. Patient was given 3 doses of IV Lopressor without any significant change while in the ED. she was then started on Cardizem bolus and started on Cardizem infusion. She was transferred to IMU. subjective: Heart rate remains in the 120s to 130s despite amiodarone infusion and metoprolol. She denies any new complaints today. Labs reviewed Review of Systems Review of Systems: All systems reviewed & are unremarkable except as noted in HPI and below Exam Narrative: General: In no acute distress, well nourished Cardiac: Normal S1 and S2. Irregular rate and rhythm, AFib RVR on monitor No murmur, gallops or friction rubs, peripheral pulses intact. Respiratory: Lungs clear to auscultation, no adventitious lung sounds, currently on room air Gastrointestinal: soft, non-distended, non-tender, normoactive bowel sounds. : voiding without difficulty. Neuro: Alert and oriented x4 Objective Data Vital Signs Vital Signs: Vital Signs - 24 hr 03/21/25 13:56 03/21/25 14:11 03/21/25 14:20 Temperature 98.9 F Pulse Rate 160 H 154 H Respiratory Rate 14 Blood Pressure 117/78 Pulse Oximetry 97 99 Oxygen Delivery Room Air Room Air Fraction of Inspired Oxygen 03/21/25 14:22 03/21/25 14:31 03/21/25 14:51 Temperature Pulse Rate 142 H 156 H 139 H Respiratory Rate 20 18 Blood Pressure 122/94 H 126/99 H Pulse Oximetry 97 96 Oxygen Delivery Fraction of Inspired Oxygen 03/21/25 15:13 03/21/25 15:15 03/21/25 15:16 Temperature Pulse Rate 141 H 131 H 139 H Respiratory Rate 34 H 18 18 Blood Pressure 129/107 H Pulse Oximetry 97 99 96 Oxygen Delivery Fraction of Inspired Oxygen 03/21/25 15:22 03/21/25 15:30 03/21/25 15:37 Temperature Pulse Rate 149 H 138 H 132 H Respiratory Rate 20 20 Blood Pressure Pulse Oximetry 96 97 Oxygen Delivery Fraction of Inspired Oxygen 03/21/25 16:01 03/21/25 16:03 03/21/25 16:33 Temperature Pulse Rate 148 H 132 H 145 H Respiratory Rate 14 Blood Pressure 123/94 H 123/94 H 133/69 Pulse Oximetry 100 Oxygen Delivery Fraction of Inspired Oxygen 03/21/25 16:40 03/21/25 18:00 03/21/25 18:21 Temperature Pulse Rate 138 H 138 H 138 H Respiratory Rate 14 Blood Pressure 133/69 133/69 133/69 Pulse Oximetry 100 Oxygen Delivery Fraction of Inspired Oxygen 03/21/25 18:53 03/21/25 18:54 03/21/25 18:54 Temperature Pulse Rate 125 H 125 H 125 H Respiratory Rate Blood Pressure Pulse Oximetry Oxygen Delivery Fraction of Inspired Oxygen 03/21/25 19:05 03/21/25 19:30 03/21/25 20:00 Temperature Pulse Rate 122 H 96 110 H Respiratory Rate Blood Pressure 108/67 Pulse Oximetry Oxygen Delivery Fraction of Inspired Oxygen 03/21/25 20:00 03/21/25 20:17 03/21/25 21:58 Temperature 98.1 F Pulse Rate 110 H 119 H 122 H Respiratory Rate 18 20 Blood Pressure 108/67 108/67 Pulse Oximetry 97 95 Oxygen Delivery Room Air Fraction of Inspired Oxygen 21 03/21/25 22:00 03/21/25 22:00 03/21/25 23:33 Temperature 98.6 F Pulse Rate 119 H 119 H 128 H Respiratory Rate 20 Blood Pressure 119/71 119/71 126/73 Pulse Oximetry 98 Oxygen Delivery Fraction of Inspired Oxygen 03/22/25 00:00 03/22/25 00:00 03/22/25 00:00 Temperature Pulse Rate 132 H 132 H Respiratory Rate Blood Pressure 126/73 Pulse Oximetry Oxygen Delivery Room Air Fraction of Inspired Oxygen 03/22/25 01:23 03/22/25 01:23 03/22/25 02:00 Temperature Pulse Rate 133 H 133 H 119 H Respiratory Rate Blood Pressure 126/73 126/73 124/75 Pulse Oximetry Oxygen Delivery Fraction of Inspired Oxygen 03/22/25 02:00 03/22/25 03:55 03/22/25 04:00 Temperature 98.2 F Pulse Rate 119 H 140 H 133 H Respiratory Rate 20 Blood Pressure 124/75 120/92 H 120/92 H Pulse Oximetry 97 Oxygen Delivery Fraction of Inspired Oxygen 03/22/25 04:00 03/22/25 04:00 03/22/25 05:28 Temperature Pulse Rate 137 H 126 H Respiratory Rate Blood Pressure Pulse Oximetry Oxygen Delivery Room Air Fraction of Inspired Oxygen 03/22/25 05:32 03/22/25 06:00 03/22/25 06:00 Temperature Pulse Rate 117 H 117 H Respiratory Rate Blood Pressure 142/94 H 137/80 137/80 Pulse Oximetry Oxygen Delivery Fraction of Inspired Oxygen 03/22/25 07:58 03/22/25 08:00 03/22/25 08:00 Temperature 97.5 F L Pulse Rate 131 H 133 H Respiratory Rate 18 Blood Pressure 119/85 119/85 Pulse Oximetry 95 95 Oxygen Delivery Room Air Fraction of Inspired Oxygen 03/22/25 08:00 03/22/25 08:11 03/22/25 08:11 Temperature Pulse Rate 123 H 133 H 133 H Respiratory Rate Blood Pressure Pulse Oximetry Oxygen Delivery Fraction of Inspired Oxygen 03/22/25 10:00 03/22/25 10:00 03/22/25 10:00 Temperature 98.1 F Pulse Rate 121 H 126 H 144 H Respiratory Rate 20 Blood Pressure 127/80 127/90 Pulse Oximetry 97 Oxygen Delivery Fraction of Inspired Oxygen 03/22/25 10:50 03/22/25 11:56 03/22/25 12:00 Temperature 98.1 F Pulse Rate 165 H 128 H 149 H Respiratory Rate 20 Blood Pressure 144/100 H 138/93 H Pulse Oximetry 95 Oxygen Delivery Fraction of Inspired Oxygen 03/22/25 12:21 03/22/25 12:32 Temperature Pulse Rate 149 H Respiratory Rate Blood Pressure 138/93 H Pulse Oximetry Oxygen Delivery Fraction of Inspired Oxygen Intake/Output Intake/Output: Intake & Output 03/19/25 03/20/25 03/21/25 03/22/25 23:59 23:59 23:59 23:59 Intake Total 334.1 833.5 Output Total 1800 Balance 334.1 -966.5 Meds/Results Medications: Active Medications Generic Name Dose Route Start Last Admin Trade Name Freq PRN Reason Stop Dose Admin Acetaminophen 650 mg 03/21/25 16:08 Acetaminophen 325 Mg Tablet PO Q4H PRN Mild Pain (1-3) or Fever Allopurinol 200 mg 03/22/25 09:00 03/22/25 08:00 Allopurinol 100 Mg Tablet PO 200 mg DAILY MEGGAN Administration Apixaban 5 mg 03/21/25 21:00 03/22/25 08:00 Apixaban 5 Mg Tablet PO 5 mg Q12HR MEGGAN Administration Atorvastatin Calcium 20 mg 03/22/25 09:00 03/22/25 08:00 Atorvastatin 20 Mg Tablet PO 20 mg DAILY MEGGAN Administration Hydrochlorothiazide 25 mg 03/22/25 09:00 03/22/25 08:00 Hydrochlorothiazide 25 Mg Tablet PO 25 mg DAILY MEGGAN Administration Amiodarone HCl/Dextrose 360 mg in 200 mls @ 16.667 mls/hr 03/22/25 00:21 03/22/25 12:00 Nexterone 360 Mg/D5w 200 Ml IV CONT 0.5 mg/min .Q12H MEGGAN 16.67 mls/hr Infusion 0.5 MG/MIN Metoprolol Tartrate 25 mg 03/22/25 12:10 03/22/25 12:32 Metoprolol Tartrate 25 Mg Tablet PO 25 mg Q6HR MEGGAN Administration Ondansetron HCl 4 mg 03/21/25 16:08 Ondansetron Inj 4 Mg/2 Ml Vial IV PUSH Q4H PRN Nausea Radiology Results: ITS Impressions Chest X-Ray 03/21/25 14:46 Impression: Stable central venous congestive change versus pulmonary artery hypertension. No acute abnormality seen. Labs Labs: Laboratory Results - last 24 hr 03/21/25 03/21/25 03/21/25 14:06 17:17 20:02 WBC 8.0 RBC 3.39 L Hgb 10.2 L Hct 33.5 L MCV 98.8 MCH 30.1 MCHC 30.4 L RDW 16.3 H Plt Count 210 MPV 10.4 Immature Gran % (Auto) 0.3 Neut % (Auto) 72.1 Lymph % (Auto) 16.3 L [place] % (Auto) 10.9 H Eos % (Auto) 0.3 Baso % (Auto) 0.1 L Lymph # (Auto) 1.30 [place] # (Auto) 0.9 H Eos # (Auto) 0.0 Baso # (Auto) 0.0 Abs Immat Gran (auto) 0.02 Absolute Neuts (auto) 5.8 Absolute Nucleated RBC 0.000 Nucleated RBC % 0.0 PT 17.9 H INR 1.5 APTT 31.8 Sodium 141 Potassium 3.8 Chloride 105 Carbon Dioxide 27 Anion Gap 9 BUN 26 H Creatinine 0.87 Estim Creat Clear Calc 64 Estimated GFR > 60 Glucose 112 H Uric Acid Calcium 9.2 Magnesium Total Bilirubin 0.6 AST 22 ALT 39 H Alkaline Phosphatase 97 Troponin I < 0.012 < 0.012 < 0.012 NT-Pro-B Natriuret Pep 2610 H Total Protein 7.0 Albumin 4.0 Lipase 110 03/22/25 03:51 WBC 6.8 RBC 3.35 L Hgb 10.2 L Hct 33.2 L MCV 99.1 MCH 30.4 MCHC 30.7 L RDW 16.7 H Plt Count 187 MPV 10.2 Immature Gran % (Auto) 0.3 Neut % (Auto) 64.0 Lymph % (Auto) 24.7 [place] % (Auto) 10.0 H Eos % (Auto) 0.9 Baso % (Auto) 0.1 L Lymph # (Auto) 1.69 [place] # (Auto) 0.7 H Eos # (Auto) 0.1 Baso # (Auto) 0.0 Abs Immat Gran (auto) 0.02 Absolute Neuts (auto) 4.4 Absolute Nucleated RBC 0.000 Nucleated RBC % 0.0 PT INR APTT Sodium 139 Potassium 3.7 Chloride 104 Carbon Dioxide 27 Anion Gap 8 BUN 22 H Creatinine 0.80 Estim Creat Clear Calc 70 Estimated GFR > 60 Glucose 112 H Uric Acid 6.7 Calcium 9.2 Magnesium 1.8 Total Bilirubin 0.6 AST 21 ALT 35 Alkaline Phosphatase 96 Troponin I NT-Pro-B Natriuret Pep Total Protein 6.0 L Albumin 3.8 Lipase Quality VTE Prophylaxis VTE prophylaxis: pharmacologic ordered
[2025-03-23] VITALS (26 sets, daily range): BP systolic 110–144; BP diastolic 74–97; PULSE 103–146; RESP 16–32; TEMP 36.4–37; O2SAT 93–98
[2025-03-23 04:35] LABS: Basophils Percent Auto 0.2 % (0.2-1.2); Eosinophils Absolute Auto 0.1 K/mm3 (0-0.3); Eosinophils Percent Auto 0.6 % (0-4.4); Hematocrit 37.1 % (37.0-47.0); Hemoglobin 11.5 g/dL (12.0-15.0); Immature Granulocyte Absolute 0.05 K/mm3 (0.00-0.031); Immature Granulocyte Percent A 0.5 % (0-0.5); Lymphocytes Absolute Auto 1.07 K/mm3 (0.9-3.2); Lymphocytes Percent Auto 11.5 % (18.3-44.2); Mean Corpuscular Hemoglobin 30.2 pg (26-34); Mean Corpuscular Volume 97.4 fl (80-100); Mean Platelet Volume 10.2 fl (7.4-10.4); Monocytes Absolute Auto 0.7 K/mm3 (0.1-0.6); Neutrophils Absolute Auto 7.3 K/mm3 (1.3-6.7); Neutrophils Percent Auto 79.2 % (45.5-73.1); Platelet Count Result 206 k/mm3 (150-375); Red Blood Count 3.81 M/mm3 (4.2-5.4); Red Cell Distribution Width 16.3 % (11.5-14.5); White Blood Count 9.3 K/mm3 (4.5-10.0)
[2025-03-23 05:37] LABS: Alanine Aminotransferase 36 U/L (6-35); Alkaline Phosphatase 110 U/L (38-126); Anion Gap 13 mmol/L (4-12); Aspartate Amino Transferase 22 U/L (14-36); Bilirubin,Total 0.8 mg/dL (0.2-1.3); Blood Urea Nitrogen 22 mg/dL (7-17); Calcium 9.4 mg/dL (8.4-10.2); Carbon Dioxide 26 mmol/L (22-30); Chloride 99 mmol/L (98-107); Estimated CRCL calculation 65 ml/min; Estimated Glomerular Filt Rate > 60; Glucose 114 mg/dL (65-110); Potassium 3.1 mmol/L (3.4-5.0); Sodium 138 mmol/L (137-145)
[2025-03-23] MEDS: METOPROLOL TARTRATE 25 MG TABLET PO ×2 (06:14→11:44)
--- NOTE | 2025-03-23 08:07 | P.PNCA_ITS ---
Progress Note: A&P Assessment and Plan (1) Atrial fibrillation with RVR: Code(s): I48.91 - Unspecified atrial fibrillation Status: Acute (2) Hypertension: Code(s): I10 - Essential (primary) hypertension Status: Acute (3) History of hyperlipidemia: Code(s): Z86.39 - Personal history of other endocrine, nutritional and metabolic disease Status: Acute Plan 1. Atrial Flutter with RVR. CHADSVASC of 3 for age, gender, hypertension. 2. Hypertension 3. Hyperlipidemia 4. Lymphedema 5. 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 Discussed with her that the small increased risk of spontaneous cardioversion on annual risk of stroke. However she has been on uninterrupted anticoagulation since previous discharge -with the extremely dilated left atrium I think she may not remain in sinus rhythm despite successful cardioversion. Will will add beta-buffy to try to try to rate control her. -if it is still not controlled will consider KAMRYN guided cardioversion tomorrow. NPO midnight. -she will need atrial flutter ablation as an outpatient -Continue Amiodarone drip and PO Metoprolol for now. -[id number] of 3 for age, gender, hypertension. 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 Already started on Eliquis 5mg BID, continue. Subjective Date/time seen: 03/23/25 08:07 Interval history: Denies any chest pain or shortness of breath. No palpitations. Feels well overall. Still in RVR -2 L/24 hours Review of Systems Cardiovascular: Cardiovascular: Reports as per HPI Respiratory: Respiratory: Reports as per HPI Exam Const: General: comfortable HENMT: Mouth: Yes moist mucous membranes Eyes: EOM: EOMs intact bilaterally Neck: Neck: no JVD Resp: Effort & Inspection: normal respiratory effort Auscultation: clear to auscultation bilaterally Cardio: Rate: regular rate Rhythm: regular rhythm Extrem: General: no pedal edema Objective Data Vital Signs Vital Signs: Vital Signs - 24 hr 03/22/25 08:11 03/22/25 08:11 03/22/25 10:00 Temperature Pulse Rate 133 H 133 H 121 H Respiratory Rate Blood Pressure 127/80 Pulse Oximetry Oxygen Delivery Fraction of Inspired Oxygen 03/22/25 10:00 03/22/25 10:00 03/22/25 10:50 Temperature 36.7 C Pulse Rate 126 H 144 H 165 H Respiratory Rate 20 Blood Pressure 127/90 Pulse Oximetry 97 Oxygen Delivery Fraction of Inspired Oxygen 03/22/25 11:56 03/22/25 12:00 03/22/25 12:00 Temperature 36.7 C Pulse Rate 128 H 149 H Respiratory Rate 20 Blood Pressure 144/100 H 138/93 H Pulse Oximetry 95 95 Oxygen Delivery Room Air Fraction of Inspired Oxygen 03/22/25 12:00 03/22/25 12:21 03/22/25 12:32 Temperature Pulse Rate 134 H 149 H Respiratory Rate Blood Pressure 138/93 H Pulse Oximetry Oxygen Delivery Fraction of Inspired Oxygen 03/22/25 14:00 03/22/25 14:00 03/22/25 14:00 Temperature Pulse Rate 119 H 117 H 115 H Respiratory Rate Blood Pressure 120/83 120/83 Pulse Oximetry 98 Oxygen Delivery Fraction of Inspired Oxygen 03/22/25 15:49 03/22/25 16:00 03/22/25 16:00 Temperature 36.9 C Pulse Rate 112 H 112 H 115 H Respiratory Rate 20 Blood Pressure 141/95 H 141/95 H Pulse Oximetry 97 Oxygen Delivery Fraction of Inspired Oxygen 03/22/25 16:00 03/22/25 17:31 03/22/25 18:00 Temperature Pulse Rate 129 H 133 H Respiratory Rate Blood Pressure Pulse Oximetry 97 Oxygen Delivery Room Air Fraction of Inspired Oxygen 03/22/25 18:00 03/22/25 18:00 03/22/25 20:00 Temperature 36.9 C Pulse Rate 131 H 131 H 115 H Respiratory Rate 20 20 Blood Pressure 125/80 125/80 Pulse Oximetry 95 95 Oxygen Delivery Room Air Fraction of Inspired Oxygen 21 03/22/25 20:00 03/22/25 20:05 03/22/25 20:12 Temperature 36.8 C Pulse Rate 111 H 109 H 135 H Respiratory Rate 20 Blood Pressure 131/80 131/80 Pulse Oximetry 97 Oxygen Delivery Fraction of Inspired Oxygen 03/22/25 20:42 03/22/25 21:58 03/22/25 22:00 Temperature Pulse Rate 135 H 116 H 103 H Respiratory Rate Blood Pressure 131/80 133/81 133/81 Pulse Oximetry 96 Oxygen Delivery Fraction of Inspired Oxygen 03/22/25 22:00 03/22/25 23:50 03/22/25 23:51 Temperature 36.5 C Pulse Rate 108 H 110 H 117 H Respiratory Rate 20 20 Blood Pressure 128/100 H Pulse Oximetry 96 96 Oxygen Delivery Room Air Fraction of Inspired Oxygen 21 03/22/25 23:56 03/23/25 00:00 03/23/25 00:00 Temperature Pulse Rate 123 H 103 H 117 H Respiratory Rate Blood Pressure 126/90 Pulse Oximetry Oxygen Delivery Fraction of Inspired Oxygen 03/23/25 02:00 03/23/25 02:00 03/23/25 02:00 Temperature Pulse Rate 119 H 115 H 115 H Respiratory Rate 18 Blood Pressure 115/77 115/77 Pulse Oximetry 98 Oxygen Delivery Fraction of Inspired Oxygen 03/23/25 03:45 03/23/25 03:53 03/23/25 04:00 Temperature 36.4 C Pulse Rate 126 H 127 H 109 H Respiratory Rate 18 20 Blood Pressure 131/97 H 131/97 H Pulse Oximetry 98 96 Oxygen Delivery Room Air Fraction of Inspired Oxygen 21 03/23/25 04:00 03/23/25 06:00 03/23/25 06:00 Temperature Pulse Rate 128 H 128 H 140 H Respiratory Rate 20 Blood Pressure 136/91 H Pulse Oximetry 98 Oxygen Delivery Fraction of Inspired Oxygen 03/23/25 06:00 03/23/25 06:14 03/23/25 08:00 Temperature 36.4 C Pulse Rate 119 H 131 H 110 H Respiratory Rate 32 H Blood Pressure 131/96 H 129/94 H Pulse Oximetry 98 Oxygen Delivery Fraction of Inspired Oxygen Intake/Output Intake/Output: Intake & Output 03/20/25 03/21/25 03/22/25 03/23/25 23:59 23:59 23:59 23:59 Intake Total 334.1 1471.6 133.2 Output Total 3500 600 Balance 334.1 -2028.4 -466.8 Meds/Results Medications: Active Medications Generic Name Dose Route Start Last Admin Trade Name Freq PRN Reason Stop Dose Admin Acetaminophen 650 mg 03/21/25 16:08 Acetaminophen 325 Mg Tablet PO Q4H PRN Mild Pain (1-3) or Fever Allopurinol 200 mg 03/22/25 09:00 03/22/25 08:00 Allopurinol 100 Mg Tablet PO 200 mg DAILY MEGGAN Administration Apixaban 5 mg 04/29/25 21:00 03/22/25 20:42 Apixaban 5 Mg Tablet PO 5 mg Q12HR MEGGAN Administration Atorvastatin Calcium 20 mg 03/22/25 09:00 03/22/25 08:00 Atorvastatin 20 Mg Tablet PO 20 mg DAILY MEGGAN Administration Hydrochlorothiazide 25 mg 03/22/25 09:00 03/22/25 08:00 Hydrochlorothiazide 25 Mg Tablet PO 25 mg DAILY MEGGAN Administration Amiodarone HCl/Dextrose 360 mg in 200 mls @ 16.667 mls/hr 03/22/25 00:21 03/23/25 06:00 Nexterone 360 Mg/D5w 200 Ml IV CONT 0.5 mg/min .Q12H MEGGAN 16.67 mls/hr Infusion 0.5 MG/MIN Metoprolol Tartrate 25 mg 03/22/25 12:10 03/23/25 06:14 Metoprolol Tartrate 25 Mg Tablet PO 25 mg Q6HR MEGGAN Administration Ondansetron HCl 4 mg 03/21/25 16:08 Ondansetron Inj 4 Mg/2 Ml Vial IV PUSH Q4H PRN Nausea Radiology Results: ITS Impressions Chest X-Ray 03/21/25 14:46 Impression: Stable central venous congestive change versus pulmonary artery hypertension. No acute abnormality seen. Labs Labs: Laboratory Results - last 24 hr 03/23/25 03:52 WBC 9.3 RBC 3.81 L Hgb 11.5 L Hct 37.1 MCV 97.4 MCH 30.2 MCHC 31.0 L RDW 16.3 H Plt Count 206 MPV 10.2 Immature Gran % (Auto) 0.5 Neut % (Auto) 79.2 H Lymph % (Auto) 11.5 L [place] % (Auto) 8.0 Eos % (Auto) 0.6 Baso % (Auto) 0.2 Lymph # (Auto) 1.07 [place] # (Auto) 0.7 H Eos # (Auto) 0.1 Baso # (Auto) 0.0 Abs Immat Gran (auto) 0.05 H Absolute Neuts (auto) 7.3 H Absolute Nucleated RBC 0.000 Nucleated RBC % 0.0 Sodium 138 Potassium 3.1 L Chloride 99 Carbon Dioxide 26 Anion Gap 13 H BUN 22 H Creatinine 0.85 Estim Creat Clear Calc 65 Estimated GFR > 60 Glucose 114 H Calcium 9.4 Total Bilirubin 0.8 AST 22 ALT 36 H Alkaline Phosphatase 110 Total Protein 7.0 Albumin 4.0
[2025-03-23] MEDS: AMIODARONE 360 MG/D5W 200 ML 360 MG/200 ML BAG 16.67 MG IV CONT ×2 (08:45→23:02)
[2025-03-23] MEDS: ATORVASTATIN 20 MG TABLET PO (09:22)
[2025-03-23] MEDS: hydroCHLOROthiazide 25 MG TABLET PO (09:22)
[2025-03-23] MEDS: allopurinoL 100 MG TABLET 200 MG PO (09:22)
[2025-03-23] MEDS: APIXABAN 5 MG TABLET PO ×2 (09:22→20:10)
--- NOTE | 2025-03-23 10:57 | P.PNIM_ITS ---
Progress Note: A&P Assessment and Plan (1) Atrial fibrillation with RVR: Code(s): I48.91 - Unspecified atrial fibrillation Status: Acute Assessment and Plan: * Continue Eliquis * Patient was given IV metoprolol in the ED without any improvement in her heart rate and then started on Cardizem bolus and drip.--was later called by bedside nursing who states that her heart rate is still in the 120s to low 130s on 10 mg Cardizem infusion * Continue amiodarone infusion * Cardiology following and increased her metoprolol 50 mg q.6 hour * Lasix 40 mg IVP given today per Cardiology * NPO after midnight for possible cardioversion in the morning * Will likely need ablation on an outpatient basis for rate control * Continue IMU status (2) Hypertension: Code(s): I10 - Essential (primary) hypertension Status: Acute Assessment and Plan: * Blood pressure ranging 122/94 to 133/69 * Continue hydrochlorothiazide * Trandolapril is on hold as it is non formulary (3) History of hyperlipidemia: Code(s): Z86.39 - Personal history of other endocrine, nutritional and metabolic disease Status: Acute Assessment and Plan: * Continue atorvastatin Time Spent With Patient Time with patient: 25 - 35 minutes Subjective Date/time seen: 03/23/25 10:57 Interval history: interval history: This is a 69-year-old female with a significant past medical history of hyperlipidemia, hypertension, arthritis, kidney stones, AFib who presented to the hospital with complaints of shortness of breath over the last week and AFib RVR. Patient was previously admitted on 01/24/2025 with similar complaints of AFib RVR and cellulitis. During that time she was started on Cardizem bolus and drip and then transition to amiodarone bolus and drip. Cardiology was consulted and was planning on taking her for cardioversion however she converted back to normal sinus rhythm overnight on the amiodarone infusion. She was discharged with metoprolol 25 mg b.i.d. and Eliquis. Today she came back due to increased shortness of breath with exertion and she reported to have vein some left-sided chest pain intermittently. She states that she checked her blood pressure at home and noted that her heart rate was in the 120s prompting her to come to the hospital for further evaluation. Workup in the hospital included a chest x-ray which showed stable central venous congestive changes versus pulmonary arterial hypertension. Initial labs showed a normal white blood cell count of 8.0, hemoglobin 10.2, troponin negative x2, proBNP 2610. EKG showed AFib with RVR with a rate of 156, QTC 442. Patient was given 3 doses of IV Lopressor without any significant change while in the ED. she was then started on Cardizem bolus and started on Cardizem infusion. She was transferred to IMU. subjective: Heart rate remains in the 120s to 130s. Labs reviewed Review of Systems Review of Systems: All systems reviewed & are unremarkable except as noted in HPI and below Exam Narrative: General: In no acute distress, well nourished Cardiac: Normal S1 and S2. Irregular rate and rhythm, AFib RVR 120-130s on monitor No murmur, gallops or friction rubs, peripheral pulses intact. Respiratory: Lungs clear to auscultation, no adventitious lung sounds, currently on room air Gastrointestinal: soft, non-distended, non-tender, normoactive bowel sounds. : voiding without difficulty. Neuro: Alert and oriented x4 Objective Data Vital Signs Vital Signs: Vital Signs - 24 hr 03/22/25 11:56 03/22/25 12:00 03/22/25 12:00 Temperature 98.1 F Pulse Rate 128 H 149 H Respiratory Rate 20 Blood Pressure 144/100 H 138/93 H Pulse Oximetry 95 95 Oxygen Delivery Room Air Fraction of Inspired Oxygen 03/22/25 12:00 03/22/25 12:21 03/22/25 12:32 Temperature Pulse Rate 134 H 149 H Respiratory Rate Blood Pressure 138/93 H Pulse Oximetry Oxygen Delivery Fraction of Inspired Oxygen 03/22/25 14:00 03/22/25 14:00 03/22/25 14:00 Temperature Pulse Rate 119 H 117 H 115 H Respiratory Rate Blood Pressure 120/83 120/83 Pulse Oximetry 98 Oxygen Delivery Fraction of Inspired Oxygen 03/22/25 15:49 03/22/25 16:00 03/22/25 16:00 Temperature 98.5 F Pulse Rate 112 H 112 H 115 H Respiratory Rate 20 Blood Pressure 141/95 H 141/95 H Pulse Oximetry 97 Oxygen Delivery Fraction of Inspired Oxygen 03/22/25 16:00 03/22/25 17:31 03/22/25 18:00 Temperature Pulse Rate 129 H 133 H Respiratory Rate Blood Pressure Pulse Oximetry 97 Oxygen Delivery Room Air Fraction of Inspired Oxygen 03/22/25 18:00 03/22/25 18:00 03/22/25 20:00 Temperature 98.4 F Pulse Rate 131 H 131 H 115 H Respiratory Rate 20 20 Blood Pressure 125/80 125/80 Pulse Oximetry 95 95 Oxygen Delivery Room Air Fraction of Inspired Oxygen 21 03/22/25 20:00 03/22/25 20:05 03/22/25 20:12 Temperature 98.2 F Pulse Rate 111 H 109 H 135 H Respiratory Rate 20 Blood Pressure 131/80 131/80 Pulse Oximetry 97 Oxygen Delivery Fraction of Inspired Oxygen 03/22/25 20:42 03/22/25 21:58 03/22/25 22:00 Temperature Pulse Rate 135 H 116 H 103 H Respiratory Rate Blood Pressure 131/80 133/81 133/81 Pulse Oximetry 96 Oxygen Delivery Fraction of Inspired Oxygen 03/22/25 22:00 03/22/25 23:50 03/22/25 23:51 Temperature 97.7 F Pulse Rate 108 H 110 H 117 H Respiratory Rate 20 20 Blood Pressure 128/100 H Pulse Oximetry 96 96 Oxygen Delivery Room Air Fraction of Inspired Oxygen 21 03/22/25 23:56 03/23/25 00:00 03/23/25 00:00 Temperature Pulse Rate 123 H 103 H 117 H Respiratory Rate Blood Pressure 126/90 Pulse Oximetry Oxygen Delivery Fraction of Inspired Oxygen 03/23/25 02:00 03/23/25 02:00 03/23/25 02:00 Temperature Pulse Rate 119 H 115 H 115 H Respiratory Rate 18 Blood Pressure 115/77 115/77 Pulse Oximetry 98 Oxygen Delivery Fraction of Inspired Oxygen 03/23/25 03:45 03/23/25 03:53 03/23/25 04:00 Temperature 97.6 F Pulse Rate 126 H 127 H 109 H Respiratory Rate 18 20 Blood Pressure 131/97 H 131/97 H Pulse Oximetry 98 96 Oxygen Delivery Room Air Fraction of Inspired Oxygen 21 03/23/25 04:00 03/23/25 06:00 03/23/25 06:00 Temperature Pulse Rate 128 H 128 H 140 H Respiratory Rate 20 Blood Pressure 136/91 H Pulse Oximetry 98 Oxygen Delivery Fraction of Inspired Oxygen 03/23/25 06:00 03/23/25 06:14 03/23/25 08:00 Temperature 97.6 F Pulse Rate 119 H 131 H 110 H Respiratory Rate 32 H Blood Pressure 131/96 H 129/94 H Pulse Oximetry 98 Oxygen Delivery Fraction of Inspired Oxygen 03/23/25 08:00 03/23/25 08:00 03/23/25 08:00 Temperature Pulse Rate 112 H 118 H Respiratory Rate Blood Pressure 129/94 H Pulse Oximetry Oxygen Delivery Room Air Fraction of Inspired Oxygen 03/23/25 08:43 03/23/25 08:45 03/23/25 10:00 Temperature 98.2 F Pulse Rate 110 H 110 H 138 H Respiratory Rate 28 H Blood Pressure 129/94 H 129/94 H 120/74 Pulse Oximetry 93 Oxygen Delivery Fraction of Inspired Oxygen 03/23/25 10:00 03/23/25 10:00 Temperature Pulse Rate 124 H 126 H Respiratory Rate Blood Pressure 120/74 Pulse Oximetry Oxygen Delivery Fraction of Inspired Oxygen Intake/Output Intake/Output: Intake & Output 03/20/25 03/21/25 03/22/25 03/23/25 23:59 23:59 23:59 23:59 Intake Total 334.1 1471.6 439.1 Output Total 3500 600 Balance 334.1 -2028.4 -160.9 Meds/Results Medications: Active Medications Generic Name Dose Route Start Last Admin Trade Name Freq PRN Reason Stop Dose Admin Acetaminophen 650 mg 03/21/25 16:08 Acetaminophen 325 Mg Tablet PO Q4H PRN Mild Pain (1-3) or Fever Allopurinol 200 mg 03/22/25 09:00 03/23/25 09:22 Allopurinol 100 Mg Tablet PO 200 mg DAILY MEGGAN Administration Apixaban 5 mg 03/21/25 21:00 03/23/25 09:22 Apixaban 5 Mg Tablet PO 5 mg Q12HR MEGGAN Administration Atorvastatin Calcium 20 mg 03/22/25 09:00 03/23/25 09:22 Atorvastatin 20 Mg Tablet PO 20 mg DAILY MEGGAN Administration Hydrochlorothiazide 25 mg 03/22/25 09:00 03/23/25 09:22 Hydrochlorothiazide 25 Mg Tablet PO 25 mg DAILY MEGGAN Administration Amiodarone HCl/Dextrose 360 mg in 200 mls @ 16.667 mls/hr 03/22/25 00:21 03/23/25 10:00 Nexterone 360 Mg/D5w 200 Ml IV CONT 0.5 mg/min .Q12H MEGGAN 16.67 mls/hr Infusion 0.5 MG/MIN Metoprolol Tartrate 50 mg 03/23/25 12:00 Metoprolol Tartrate 50 Mg Tab PO Q6HR MEGGAN Ondansetron HCl 4 mg 03/21/25 16:08 Ondansetron Inj 4 Mg/2 Ml Vial IV PUSH Q4H PRN Nausea Radiology Results: ITS Impressions Chest X-Ray 03/21/25 14:46 Impression: Stable central venous congestive change versus pulmonary artery hypertension. No acute abnormality seen. Labs Labs: Laboratory Results - last 24 hr 03/23/25 03:52 WBC 9.3 RBC 3.81 L Hgb 11.5 L Hct 37.1 MCV 97.4 MCH 30.2 MCHC 31.0 L RDW 16.3 H Plt Count 206 MPV 10.2 Immature Gran % (Auto) 0.5 Neut % (Auto) 79.2 H Lymph % (Auto) 11.5 L [place] % (Auto) 8.0 Eos % (Auto) 0.6 Baso % (Auto) 0.2 Lymph # (Auto) 1.07 [place] # (Auto) 0.7 H Eos # (Auto) 0.1 Baso # (Auto) 0.0 Abs Immat Gran (auto) 0.05 H Absolute Neuts (auto) 7.3 H Absolute Nucleated RBC 0.000 Nucleated RBC % 0.0 Sodium 138 Potassium 3.1 L Chloride 99 Carbon Dioxide 26 Anion Gap 13 H BUN 22 H Creatinine 0.85 Estim Creat Clear Calc 65 Estimated GFR > 60 Glucose 114 H Calcium 9.4 Total Bilirubin 0.8 AST 22 ALT 36 H Alkaline Phosphatase 110 Total Protein 7.0 Albumin 4.0 Quality VTE Prophylaxis VTE prophylaxis: pharmacologic ordered
[2025-03-23] MEDS: FUROSEMIDE INJ 40 MG/4 ML VIAL IV PUSH (11:44)
[2025-03-23] MEDS: METOPROLOL TARTRATE 50 MG TAB PO ×3 (11:45→23:04)
[2025-03-23] MEDS: POTASSIUM CHLORIDE 20 MEQ ER TABLET 40 MEQ PO (11:55)
[2025-03-23] MEDS: ALPRAZolam (*CRX) 0.25 MG TABLET PO ×2 (17:56→23:03)
[2025-03-24] VITALS (34 sets, daily range): BP systolic 112–156; BP diastolic 80–118; PULSE 99–144; RESP 16–25; TEMP 36.7–36.9; O2SAT 92–99
--- NOTE | 2025-03-24 | ECHO_ITS ---
Patient Info Name: Amaris Butler Age: 69 years : 1955 Gender: Female Ht: 64 in Wt: 227 lbs BSA: 2.21 m2 HR: 107 bpm BP: 140 / 94 mmHg Heart Rhythm: Atrial Fibrillation Technical Quality: Good Exam Date: 03/24/2025 12:42 PM Exam Location: Echo Lab Patient Status: Inpatient Admit Date: 03/22/2025 Staff Ordering Physician: Scott Vyas MD (edward/manuel) Community Service Technician: Kiery Moreno RDCS Attending Provider: Preet Quiroz MD Referring Physician: Lilliam MCARTHUR; Exam Type: CA echo transesophageal Study Info Indications - Afib, RVR Complete two-dimensional, color flow and Doppler transesophageal study is performed. Summary 1. Smoke seen in the left atrium. 2. SHERLYN not well visualized. 3. There is a serpiginous mobile echodensity seen at the base of the SHERLYN. Cannot rule out a thrombus. 4. Mild mitral regurgitation seen. 5. Limited study prior to cardioversion. Please see TTE for prior detialed report. Recommendations * NOT to proceed with cardioversion. * Continue rate control and anticoagulation. Report Signatures
[2025-03-24 04:40] LABS: Basophils Percent Auto 0.2 % (0.2-1.2); Eosinophils Absolute Auto 0.1 K/mm3 (0-0.3); Eosinophils Percent Auto 0.5 % (0-4.4); Hemoglobin 12.1 g/dL (12.0-15.0); Immature Granulocyte Absolute 0.04 K/mm3 (0.00-0.031); Immature Granulocyte Percent A 0.4 % (0-0.5); Lymphocytes Absolute Auto 1.51 K/mm3 (0.9-3.2); Lymphocytes Percent Auto 16.1 % (18.3-44.2); Mean Corpuscular HGB Conc 31.8 g/dl (32-36); Mean Corpuscular Hemoglobin 30.1 pg (26-34); Mean Corpuscular Volume 94.5 fl (80-100); Mean Platelet Volume 9.9 fl (7.4-10.4); Monocytes Percent Auto 10.8 % (2.6-8.5); Neutrophils Absolute Auto 6.8 K/mm3 (1.3-6.7); Platelet Count Result 224 k/mm3 (150-375); Red Blood Count 4.02 M/mm3 (4.2-5.4); Red Cell Distribution Width 16.2 % (11.5-14.5); White Blood Count 9.4 K/mm3 (4.5-10.0)
[2025-03-24 05:34] LABS: Alanine Aminotransferase 29 U/L (6-35); Albumin Level 3.9 g/dL (3.5-5.1); Alkaline Phosphatase 109 U/L (38-126); Anion Gap 7 mmol/L (4-12); Aspartate Amino Transferase 20 U/L (14-36); Blood Urea Nitrogen 26 mg/dL (7-17); Calcium 9.2 mg/dL (8.4-10.2); Carbon Dioxide 32 mmol/L (22-30); Chloride 98 mmol/L (98-107); Estimated CRCL calculation 62 ml/min; Estimated Glomerular Filt Rate > 60; Glucose 116 mg/dL (65-110); Potassium 3.1 mmol/L (3.4-5.0); Sodium 137 mmol/L (137-145)
[2025-03-24] MEDS: METOPROLOL TARTRATE 50 MG TAB PO ×3 (05:52→23:23)
[2025-03-24] MEDS: ALPRAZolam (*CRX) 0.25 MG TABLET PO (08:35)
[2025-03-24] MEDS: hydroCHLOROthiazide 25 MG TABLET PO (08:35)
[2025-03-24] MEDS: ATORVASTATIN 20 MG TABLET PO (08:35)
[2025-03-24] MEDS: APIXABAN 5 MG TABLET PO ×2 (08:35→20:02)
[2025-03-24] MEDS: allopurinoL 100 MG TABLET 200 MG PO (08:35)
--- NOTE | 2025-03-24 08:40 | WPDTECDV ---
KAMRYN with Cardioversion Date of procedure: 03/25/25 Procedure Type: KAMRYN Diagnosis: Atrial flutter with RVR Indications: Atrial flutter with RVR Description of Procedure: After verbal and written informed consent was obtained, the patient risks, benefits, and alternatives explained in detail. The patient agreed to proceed with the plan of care as outlined above.?See pre-sedation note for further details. The patient was then placed in the appropriate 30 to 45 degree angle supine position..?Patient was monitored throughout the study with telemetry, oxygen saturation, end-tidal CO2 monitoring, blood pressure, heart rate, and respirations.?The posterior hypopharynx was then locally anesthetized using repeated administration of Hurricaine spray as well as gargled viscous lidocaine. After local anesthetic of the posterior hypopharynx was achieved and the oral bite block placed, moderate sedation was administered.?After confirmation of adequate moderate sedation, the transesophageal echocardiogram probe was advanced through the oral bite block into the posterior hypopharynx and into the esophagus easily and without complication.?Multiple, multiplanar echocardiographic images were obtained in multiple standard re-projections.?At the conclusion of the study, the transesophageal echocardiogram probe was removed easily and without complication. The patient tolerated the procedure well without difficulty.? Sedation: Procedure / sedation start time: 13:48 Procedure / sedation end time: 14:11 Total of IV Versed 3mg and Fentanyl 75 mcg and Benadryl 50 mg were administered by RN. Findings: 1. Smokes seen in the left atrium 2. Left atrial appendage not visualized very well despite taking multiple echocardiographic images. There is serpiginous echodensity seen-to the base of the appendage. Cannot rule out thrombus Conclusion: Suspect left atrial appendage thrombus Cardioversion not done Continue rate control and anticoagulation
--- NOTE | 2025-03-24 11:03 | ECG_ITS ---
Test Date: 2025-03-24 11:20:14 Measurements Intervals [place] Rate: 109 P: 0 LA: 0 QRS: -5 QRSD: 93 T: 168 QT: 374 QTc: 504 Interpretive Statements ATRIAL FLUTTER/TACHYCARDIA WITH RAPID VENTRICULAR RESPONSE Compared to ECG 03/21/2025 13:45:32 Atrial fibrillation no longer present Myocardial infarct finding no longer present Electronically Signed On 03-24-2025 19:11:28 CDT by Scott Vyas
[2025-03-24] MEDS: AMIODARONE 360 MG/D5W 200 ML 360 MG/200 ML BAG 16.67 MG IV CONT (12:00)
--- NOTE | 2025-03-24 13:15 | SUR.PREOP ---
RN noticed pt. potassium was 3.1. made aware. VORB to primary RN for KCL infusion. Per once KCL drip was initiated pt. okay to have cardioversion preformed.
[2025-03-24] MEDS: POTASSIUM CHLORIDE IVPB (13:18)
[2025-03-24] MEDS: SODIUM CHLORIDE 0.9% IVPB (13:18)
[2025-03-24] MEDS: MIDAZOLAM HCL (*CRX) 2 MG/2 ML VIAL IV PUSH (13:49)
[2025-03-24] MEDS: fentaNYL CITRATE INJ (*CRX) 100 MCG/2 ML VIAL 50 MCG IV PUSH (13:51)
[2025-03-24] MEDS: diphenhydrAMINE HCl INJ 50 MG/ML VIAL IV PUSH (13:53)
[2025-03-24] MEDS: fentaNYL CITRATE INJ (*CRX) 100 MCG/2 ML VIAL 25 MCG IV PUSH (13:58)
[2025-03-24] MEDS: MIDAZOLAM HCL (*CRX) 2 MG/2 ML VIAL 1 MG IV PUSH (13:58)
--- NOTE | 2025-03-24 14:58 | PM.IMPN ---
Progress Note: A&P Assessment and Plan (1) Atrial fibrillation with RVR: Code(s): I48.91 - Unspecified atrial fibrillation Status: Acute Assessment and Plan: Continue Eliquis Patient was given IV metoprolol in the ED without any improvement in her heart rate and then started on Cardizem bolus and drip.--was later called by bedside nursing who states that her heart rate is still in the 120s to low 130s on 10 mg Cardizem infusion Amiodarone infusion discontinued, patient started on Cardizem 30 mg Q 6 hour Continue metoprolol 50 mg q.6 Cardiology following Cardiology unable to cardiovert due to thrombus in the ventricle Continue IMU status (2) Hypertension: Code(s): I10 - Essential (primary) hypertension Status: Acute Assessment and Plan: Blood pressure ranging 122/94 to 133/69 Continue hydrochlorothiazide Trandolapril is on hold as it is non formulary (3) History of hyperlipidemia: Code(s): Z86.39 - Personal history of other endocrine, nutritional and metabolic disease Status: Acute Assessment and Plan: Continue atorvastatin Time Spent With Patient Time with patient: 25 - 35 minutes Subjective Date/time seen: 03/24/25 14:58 Interval history: interval history: This is a 69-year-old female with a significant past medical history of hyperlipidemia, hypertension, arthritis, kidney stones, AFib who presented to the hospital with complaints of shortness of breath over the last week and AFib RVR. Patient was previously admitted on 01/24/2025 with similar complaints of AFib RVR and cellulitis. During that time she was started on Cardizem bolus and drip and then transition to amiodarone bolus and drip. Cardiology was consulted and was planning on taking her for cardioversion however she converted back to normal sinus rhythm overnight on the amiodarone infusion. She was discharged with metoprolol 25 mg b.i.d. and Eliquis. Today she came back due to increased shortness of breath with exertion and she reported to have vein some left-sided chest pain intermittently. She states that she checked her blood pressure at home and noted that her heart rate was in the 120s prompting her to come to the hospital for further evaluation. Workup in the hospital included a chest x-ray which showed stable central venous congestive changes versus pulmonary arterial hypertension. Initial labs showed a normal white blood cell count of 8.0, hemoglobin 10.2, troponin negative x2, proBNP 2610. EKG showed AFib with RVR with a rate of 156, QTC 442. Patient was given 3 doses of IV Lopressor without any significant change while in the ED. she was then started on Cardizem bolus and started on Cardizem infusion. She was transferred to IMU. subjective: Heart rate remains in A flutter/fib 108. Labs reviewed Review of Systems Review of Systems: All systems reviewed & are unremarkable except as noted in HPI and below Exam Narrative: General: In no acute distress, well nourished Cardiac: Normal S1 and S2. Irregular rate and rhythm,No murmur, gallops or friction rubs, peripheral pulses intact. Respiratory: Lungs clear to auscultation, no adventitious lung sounds, currently on room air Gastrointestinal: soft, non-distended, non-tender, normoactive bowel sounds. : voiding without difficulty. Neuro: Alert and oriented x4 Objective Data Vital Signs Vital Signs: Vital Signs - 24 hr 03/23/25 16:00 03/23/25 16:00 03/23/25 16:00 Temperature 98.6 F Pulse Rate 118 H 124 H Respiratory Rate 16 Blood Pressure 110/84 Pulse Oximetry 93 Oxygen Delivery Room Air Oxygen Flow Rate 03/23/25 17:58 03/23/25 18:00 03/23/25 18:00 Temperature Pulse Rate 134 H 123 H 132 H Respiratory Rate 32 H Blood Pressure 110/84 111/79 Pulse Oximetry 93 Oxygen Delivery Oxygen Flow Rate 03/23/25 19:36 03/23/25 20:00 03/23/25 20:00 Temperature 98.3 F Pulse Rate 135 H 137 H Respiratory Rate 20 Blood Pressure 133/92 H Pulse Oximetry 95 Oxygen Delivery Room Air Oxygen Flow Rate 03/23/25 21:55 03/23/25 22:00 03/23/25 22:55 Temperature Pulse Rate 135 H 125 H 133 H Respiratory Rate Blood Pressure 131/84 Pulse Oximetry 94 Oxygen Delivery Oxygen Flow Rate 03/23/25 23:02 03/23/25 23:04 03/23/25 23:24 Temperature Pulse Rate 146 H 136 H Respiratory Rate Blood Pressure Pulse Oximetry Oxygen Delivery Room Air Oxygen Flow Rate 03/24/25 00:00 03/24/25 00:02 03/24/25 02:00 Temperature 98.4 F Pulse Rate 119 H 126 H 131 H Respiratory Rate 20 Blood Pressure 112/82 135/90 Pulse Oximetry 97 Oxygen Delivery Oxygen Flow Rate 03/24/25 02:00 03/24/25 02:24 03/24/25 04:00 Temperature Pulse Rate 106 H 103 H Respiratory Rate Blood Pressure 135/90 Pulse Oximetry Oxygen Delivery Room Air Oxygen Flow Rate 03/24/25 04:00 03/24/25 04:00 03/24/25 04:17 Temperature 98.4 F Pulse Rate 99 99 135 H Respiratory Rate 20 Blood Pressure 143/93 H Pulse Oximetry 95 Oxygen Delivery Oxygen Flow Rate 03/24/25 05:52 03/24/25 06:00 03/24/25 06:05 Temperature Pulse Rate 115 H 111 H 120 H Respiratory Rate Blood Pressure Pulse Oximetry Oxygen Delivery Oxygen Flow Rate 03/24/25 06:20 03/24/25 07:28 03/24/25 08:00 Temperature 98.2 F Pulse Rate 135 H 128 H Respiratory Rate 20 Blood Pressure 124/84 132/84 Pulse Oximetry 97 96 Oxygen Delivery Room Air Oxygen Flow Rate 03/24/25 08:00 03/24/25 08:00 03/24/25 10:00 Temperature Pulse Rate 122 H 118 H 109 H Respiratory Rate Blood Pressure 132/84 Pulse Oximetry Oxygen Delivery Oxygen Flow Rate 03/24/25 10:00 03/24/25 10:00 03/24/25 11:41 Temperature 98.1 F Pulse Rate 109 H 109 H 110 H Respiratory Rate 16 20 Blood Pressure 126/85 126/85 140/94 H Pulse Oximetry 95 97 Oxygen Delivery Oxygen Flow Rate 03/24/25 12:00 03/24/25 12:00 03/24/25 12:00 Temperature Pulse Rate 110 H 110 H Respiratory Rate Blood Pressure 140/94 H Pulse Oximetry Oxygen Delivery Room Air Oxygen Flow Rate 03/24/25 12:00 03/24/25 12:10 03/24/25 13:48 Temperature Pulse Rate 128 H 110 H 109 H Respiratory Rate 21 H Blood Pressure 156/109 H Pulse Oximetry 99 Oxygen Delivery Nasal Cannula Oxygen Flow Rate 2 03/24/25 13:53 03/24/25 13:58 03/24/25 14:03 Temperature Pulse Rate 109 H 105 H 106 H Respiratory Rate 25 H 20 19 Blood Pressure 156/118 H 129/95 H 124/96 H Pulse Oximetry 92 93 92 Oxygen Delivery Nasal Cannula Nasal Cannula Nasal Cannula Oxygen Flow Rate 2 2 2 03/24/25 14:08 03/24/25 14:15 03/24/25 14:30 Temperature Pulse Rate 107 H 108 H 108 H Respiratory Rate 21 H 20 22 H Blood Pressure 129/97 H 136/100 H 140/101 H Pulse Oximetry 93 95 93 Oxygen Delivery Nasal Cannula Nasal Cannula Room Air Oxygen Flow Rate 2 3 03/24/25 14:45 Temperature Pulse Rate 108 H Respiratory Rate 22 H Blood Pressure 145/100 H Pulse Oximetry 93 Oxygen Delivery Room Air Oxygen Flow Rate Intake/Output Intake/Output: Intake & Output 03/21/25 03/22/25 03/23/25 03/24/25 23:59 23:59 23:59 23:59 Intake Total 334.1 1471.6 1351.9 500.0 Output Total 3500 1600 700 Balance 334.1 -2028.4 -248.1 -200.0 Meds/Results Medications: Active Medications Generic Name Dose Route Start Last Admin Trade Name Freq PRN Reason Stop Dose Admin Acetaminophen 650 mg 03/21/25 16:08 Acetaminophen 325 Mg Tablet PO Q4H PRN Mild Pain (1-3) or Fever Allopurinol 200 mg 03/22/25 09:00 03/24/25 08:35 Allopurinol 100 Mg Tablet PO 200 mg DAILY [facility]GG[facility] Administration Alprazolam 0.25 mg 03/23/25 14:26 03/24/25 08:35 Alprazolam (*Crx) 0.25 Mg Tablet PO 0.25 mg TID PRN Administration Anxiety Apixaban 5 mg 03/21/25 21:00 03/24/25 08:35 Apixaban 5 Mg Tablet PO 5 mg Q12HR MEGGAN Administration Atorvastatin Calcium 20 mg 03/22/25 09:00 03/24/25 08:35 Atorvastatin 20 Mg Tablet PO 20 mg DAILY [facility] Administration Benzocaine 1 spray 03/24/25 13:48 Benzocaine 20% Aer Spr (*Sp) 56 Gm Can TOPICAL PRN PRN Perineal Discomfort Diltiazem HCl 30 mg 03/24/25 18:00 Diltiazem Hcl 30 Mg Tablet PO Q6HR [facility] Hydrochlorothiazide 25 mg 03/22/25 09:00 03/24/25 08:35 Hydrochlorothiazide 25 Mg Tablet PO 25 mg DAILY [facility]GG[facility] Administration Metoprolol Tartrate 50 mg 03/23/25 12:00 03/24/25 12:10 Metoprolol Tartrate 50 Mg Tab PO Not Given Q6HR [facility]GGAN Ondansetron HCl 4 mg 03/21/25 16:08 Ondansetron Inj 4 Mg/2 Ml Vial IV PUSH Q4H PRN Nausea Radiology Results: ITS Impressions Chest X-Ray 03/21/25 14:46 Impression: Stable central venous congestive change versus pulmonary artery hypertension. No acute abnormality seen. Labs Labs: Laboratory Results - last 24 hr 03/24/25 04:15 WBC 9.4 RBC 4.02 L Hgb 12.1 Hct 38.0 MCV 94.5 MCH 30.1 MCHC 31.8 L RDW 16.2 H Plt Count 224 MPV 9.9 Immature Gran % (Auto) 0.4 Neut % (Auto) 72.0 Lymph % (Auto) 16.1 L [place] % (Auto) 10.8 H Eos % (Auto) 0.5 Baso % (Auto) 0.2 Lymph # (Auto) 1.51 [place] # (Auto) 1.0 H Eos # (Auto) 0.1 Baso # (Auto) 0.0 Abs Immat Gran (auto) 0.04 H Absolute Neuts (auto) 6.8 H Absolute Nucleated RBC 0.000 Nucleated RBC % 0.0 Sodium 137 Potassium 3.1 L Chloride 98 Carbon Dioxide 32 H Anion Gap 7 BUN 26 H Creatinine 0.89 Estim Creat Clear Calc 62 Estimated GFR > 60 Glucose 116 H Calcium 9.2 Total Bilirubin 1.0 AST 20 ALT 29 Alkaline Phosphatase 109 Total Protein 7.0 Albumin 3.9 Quality VTE Prophylaxis VTE prophylaxis: pharmacologic ordered
[2025-03-24] MEDS: POTASSIUM CHLORIDE 20 MEQ PACKET (FOR LIQUID) 40 MEQ PO (17:14)
[2025-03-24] MEDS: dilTIAZem HCL 30 MG TABLET PO ×2 (17:34→23:23)
[2025-03-24] MEDS: DIGOXIN INJ 250 MCG/ML 2 ML AMP (*BKC) 500 MCG IV PUSH (18:12)
--- NOTE | 2025-03-24 18:13 | PC.NURSE ---
Pt back in RVR after amio drip stopped. HR in 140s, reaching the 160s. Dr. Vyas notified. Order for digoxin IV push
[2025-03-25] VITALS (19 sets, daily range): BP systolic 107–131; BP diastolic 60–78; PULSE 77–150; RESP 16–24; TEMP 36.6–37.4; O2SAT 95–100
[2025-03-25 04:40] LABS: Basophils Percent Auto 0.3 % (0.2-1.2); Eosinophils Absolute Auto 0.1 K/mm3 (0-0.3); Eosinophils Percent Auto 0.8 % (0-4.4); Hematocrit 36.4 % (37.0-47.0); Hemoglobin 11.7 g/dL (12.0-15.0); Immature Granulocyte Absolute 0.03 K/mm3 (0.00-0.031); Immature Granulocyte Percent A 0.3 % (0-0.5); Lymphocytes Absolute Auto 1.76 K/mm3 (0.9-3.2); Mean Corpuscular HGB Conc 32.1 g/dl (32-36); Mean Corpuscular Hemoglobin 30.3 pg (26-34); Mean Corpuscular Volume 94.3 fl (80-100); Mean Platelet Volume 9.7 fl (7.4-10.4); Monocytes Absolute Auto 1.1 K/mm3 (0.1-0.6); Monocytes Percent Auto 11.8 % (2.6-8.5); Neutrophils Absolute Auto 6.3 K/mm3 (1.3-6.7); Neutrophils Percent Auto 67.8 % (45.5-73.1); Platelet Count Result 252 k/mm3 (150-375); Red Blood Count 3.86 M/mm3 (4.2-5.4); Red Cell Distribution Width 16.2 % (11.5-14.5); White Blood Count 9.3 K/mm3 (4.5-10.0)
[2025-03-25 04:45] LABS: Alanine Aminotransferase 26 U/L (6-35); Albumin Level 3.8 g/dL (3.5-5.1); Alkaline Phosphatase 105 U/L (38-126); Anion Gap 9 mmol/L (4-12); Aspartate Amino Transferase 26 U/L (14-36); Blood Urea Nitrogen 22 mg/dL (7-17); Calcium 9.1 mg/dL (8.4-10.2); Carbon Dioxide 29 mmol/L (22-30); Chloride 100 mmol/L (98-107); Estimated CRCL calculation 61 ml/min; Estimated Glomerular Filt Rate > 60; Glucose 120 mg/dL (65-110); Potassium 3.7 mmol/L (3.4-5.0); Sodium 138 mmol/L (137-145)
[2025-03-25] MEDS: dilTIAZem HCL 30 MG TABLET PO (05:36)
[2025-03-25] MEDS: METOPROLOL TARTRATE 50 MG TAB PO ×3 (05:36→17:27)
[2025-03-25] MEDS: ATORVASTATIN 20 MG TABLET PO (09:43)
[2025-03-25] MEDS: allopurinoL 100 MG TABLET 200 MG PO (09:43)
[2025-03-25] MEDS: hydroCHLOROthiazide 25 MG TABLET PO (09:43)
[2025-03-25] MEDS: APIXABAN 5 MG TABLET PO ×2 (09:44→22:00)
[2025-03-25] MEDS: POTASSIUM CHLORIDE 20 MEQ PACKET (FOR LIQUID) 40 MEQ PO ×2 (09:44→17:27)
--- NOTE | 2025-03-25 12:51 | PM.PNCARD ---
Progress Note: A&P Assessment and Plan (1) Atrial fibrillation with RVR: Code(s): I48.91 - Unspecified atrial fibrillation Status: Acute (2) Hypertension: Code(s): I10 - Essential (primary) hypertension Status: Acute (3) History of hyperlipidemia: Code(s): Z86.39 - Personal history of other endocrine, nutritional and metabolic disease Status: Acute Plan 1. Atrial Flutter with RVR. CHADSVASC of 3 for age, gender, hypertension. 2. Hypertension 3. Hyperlipidemia 4. Lymphedema 5. 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 Anxiety PLAN: -she was started on amiodarone infusion on admission because of difficult to control heart rate after discussion with the initial consulting security site supervisor. Will discontinue amiodarone now because of the presence of suspected left atrial appendage thrombus. -unfortunately we are limited by options for rate control because of the inability to cardiovert her. Other medications were rhythm control and not indicated currently because of the presence of suspected SHERLYN thrombus -discontinue amiodarone -start IV diltiazem after a bolus -continue metoprolol at 50 mg p.o. q.6 hours -if rate is controlled on the current medications, she will need an ablation as an outpatient for atrial flutter. With an extremely dilated left atrium I think she may not remain in sinus rhythm despite a successful cardioversion later on -if rates are difficult to control on current medications, is a possibility she may need AV remberto ablation and a pacemaker -continue Eliquis 5mg BID. -consider an angiolytic anxiety is also playing a role in uncontrolled ventricular rate Subjective Date/time seen: 03/25/25 12:51 Interval history: Underwent KAMRYN yesterday. possibility of left atrial appendage thrombus and no cardioversion was performed Heart rate was controlled overnight when she was sleeping but went into rapid ventricular rate after she woke up. She is chronically in AFib, previously was in a flutter/a tach Review of Systems Cardiovascular: Cardiovascular: Reports as per HPI Respiratory: Respiratory: Reports as per HPI Exam Const: General: comfortable HENMT: Mouth: Yes moist mucous membranes Eyes: EOM: EOMs intact bilaterally Neck: Neck: no JVD Resp: Effort & Inspection: normal respiratory effort Auscultation: clear to auscultation bilaterally Cardio: Rate: regular rate Rhythm: regular rhythm Extrem: General: no pedal edema Objective Data Vital Signs Vital Signs: Vital Signs - 24 hr 03/24/25 13:48 03/24/25 13:53 03/24/25 13:58 Temperature Pulse Rate 109 H 109 H 105 H Respiratory Rate 21 H 25 H 20 Blood Pressure 156/109 H 156/118 H 129/95 H Pulse Oximetry 99 92 93 Oxygen Delivery Nasal Cannula Nasal Cannula Nasal Cannula Oxygen Flow Rate 2 2 2 03/24/25 14:03 03/24/25 14:08 03/24/25 14:15 Temperature Pulse Rate 106 H 107 H 108 H Respiratory Rate 19 21 H 20 Blood Pressure 124/96 H 129/97 H 136/100 H Pulse Oximetry 92 93 95 Oxygen Delivery Nasal Cannula Nasal Cannula Nasal Cannula Oxygen Flow Rate 2 2 3 03/24/25 14:30 03/24/25 14:45 03/24/25 15:00 Temperature Pulse Rate 108 H 108 H 108 H Respiratory Rate 22 H 22 H 20 Blood Pressure 140/101 H 145/100 H 144/101 H Pulse Oximetry 93 93 95 Oxygen Delivery Room Air Room Air Room Air Oxygen Flow Rate 03/24/25 15:15 03/24/25 15:38 03/24/25 16:00 Temperature 36.8 C Pulse Rate 108 H 107 H Respiratory Rate 20 16 Blood Pressure 140/100 H 133/80 Pulse Oximetry 94 92 Oxygen Delivery Room Air Room Air Oxygen Flow Rate 03/24/25 16:00 03/24/25 17:34 03/24/25 18:00 Temperature Pulse Rate 108 H 109 H 144 H Respiratory Rate Blood Pressure Pulse Oximetry Oxygen Delivery Oxygen Flow Rate 03/24/25 18:12 03/24/25 20:00 03/24/25 20:00 Temperature 36.8 C Pulse Rate 133 H 110 H Respiratory Rate 16 Blood Pressure 135/91 H Pulse Oximetry 97 Oxygen Delivery Room Air Oxygen Flow Rate 03/24/25 20:00 03/24/25 22:00 03/24/25 23:23 Temperature Pulse Rate 109 H 105 H 114 H Respiratory Rate Blood Pressure Pulse Oximetry Oxygen Delivery Oxygen Flow Rate 03/24/25 23:27 03/25/25 00:00 03/25/25 00:00 Temperature 36.6 C Pulse Rate 114 H 112 H Respiratory Rate 16 Blood Pressure 131/77 Pulse Oximetry 95 Oxygen Delivery Room Air Oxygen Flow Rate 03/25/25 02:00 03/25/25 03:56 03/25/25 04:00 Temperature 36.6 C Pulse Rate 89 94 102 H Respiratory Rate 16 Blood Pressure 107/78 Pulse Oximetry 96 Oxygen Delivery Oxygen Flow Rate 03/25/25 04:00 03/25/25 05:36 03/25/25 05:53 Temperature Pulse Rate 134 H 128 H Respiratory Rate Blood Pressure Pulse Oximetry Oxygen Delivery Room Air Oxygen Flow Rate 03/25/25 08:00 03/25/25 08:00 03/25/25 08:00 Temperature 36.8 C Pulse Rate 97 89 Respiratory Rate 24 H Blood Pressure 117/60 Pulse Oximetry 100 100 Oxygen Delivery Room Air Oxygen Flow Rate 03/25/25 10:00 03/25/25 12:00 Temperature 37.4 C Pulse Rate 127 H 124 H Respiratory Rate 20 Blood Pressure 115/78 Pulse Oximetry 96 Oxygen Delivery Oxygen Flow Rate Intake/Output Intake/Output: Intake & Output 03/22/25 03/23/25 03/24/25 03/25/25 23:59 23:59 23:59 23:59 Intake Total 1471.6 1351.9 740.0 250 Output Total 3500 1600 900 350 Balance -2028.4 -248.1 -160.0 -100 Meds/Results Medications: Active Medications Generic Name Dose Route Start Last Admin Trade Name Freq PRN Reason Stop Dose Admin Acetaminophen 650 mg 03/21/25 16:08 Acetaminophen 325 Mg Tablet PO Q4H PRN Mild Pain (1-3) or Fever Allopurinol 200 mg 03/22/25 09:00 03/25/25 09:43 Allopurinol 100 Mg Tablet PO 200 mg DAILY [facility] Administration Alprazolam 0.25 mg 03/23/25 14:26 03/24/25 08:35 Alprazolam (*Crx) 0.25 Mg Tablet PO 0.25 mg TID PRN Administration Anxiety Apixaban 5 mg 03/21/25 21:00 03/25/25 09:44 Apixaban 5 Mg Tablet PO 5 mg Q12HR [facility] Administration Atorvastatin Calcium 20 mg 03/22/25 09:00 03/25/25 09:43 Atorvastatin 20 Mg Tablet PO 20 mg DAILY [facility] Administration Benzocaine 1 spray 03/24/25 13:48 Benzocaine 20% Aer Spr (*Sp) 56 Gm Can TOPICAL PRN PRN Perineal Discomfort Hydrochlorothiazide 25 mg 03/22/25 09:00 03/25/25 09:43 Hydrochlorothiazide 25 Mg Tablet PO 25 mg DAILY [facility] Administration Diltiazem HCl 100 mg in 100 mls @ 10 mls/hr 03/25/25 12:15 Cardizem 100 Mg/100 Ml IV CONT .Q10H MEGGAN 10 MG/HR Metoprolol Tartrate 50 mg 03/23/25 12:00 03/25/25 05:36 Metoprolol Tartrate 50 Mg Tab PO 50 mg Q6HR [facility] Administration Ondansetron HCl 4 mg 03/21/25 16:08 Ondansetron Inj 4 Mg/2 Ml Vial IV PUSH Q4H PRN Nausea Potassium Chloride 40 meq 03/24/25 17:00 03/25/25 09:44 Potassium Chloride 20 Meq Packet (For Liquid) PO 40 meq BID [facility]GG[facility] Administration Radiology Results: ITS Impressions Chest X-Ray 03/21/25 14:46 Impression: Stable central venous congestive change versus pulmonary artery hypertension. No acute abnormality seen. Labs Labs: Laboratory Results - last 24 hr 03/25/25 04:27 WBC 9.3 RBC 3.86 L Hgb 11.7 L Hct 36.4 L MCV 94.3 MCH 30.3 MCHC 32.1 RDW 16.2 H Plt Count 252 MPV 9.7 Immature Gran % (Auto) 0.3 Neut % (Auto) 67.8 Lymph % (Auto) 19.0 [place] % (Auto) 11.8 H Eos % (Auto) 0.8 Baso % (Auto) 0.3 Lymph # (Auto) 1.76 [place] # (Auto) 1.1 H Eos # (Auto) 0.1 Baso # (Auto) 0.0 Abs Immat Gran (auto) 0.03 Absolute Neuts (auto) 6.3 Absolute Nucleated RBC 0.000 Nucleated RBC % 0.0 Sodium 138 Potassium 3.7 Chloride 100 Carbon Dioxide 29 Anion Gap 9 BUN 22 H Creatinine 0.90 Estim Creat Clear Calc 61 Estimated GFR > 60 Glucose 120 H Calcium 9.1 Total Bilirubin 1.0 AST 26 ALT 26 Alkaline Phosphatase 105 Total Protein 7.0 Albumin 3.8
[2025-03-25] MEDS: dilTIAZem 100 MG/100 ML 100 MG/100 ML BAG 10 MG IV CONT ×2 (13:15→22:01)
[2025-03-25] MEDS: dilTIAZem HCl INJ 25 MG/5 ML VIAL 20 MG IV PUSH (13:23)
--- NOTE | 2025-03-25 14:30 | P.PNIM_ITS ---
Progress Note: A&P Assessment and Plan (1) Atrial fibrillation with RVR: Code(s): I48.91 - Unspecified atrial fibrillation Status: Acute Assessment and Plan: * Continue Eliquis * Patient was given IV metoprolol in the ED without any improvement in her heart rate and then started on Cardizem bolus and drip.--was later called by bedside nursing who states that her heart rate is still in the 120s to low 130s on 10 mg Cardizem infusion * Amiodarone infusion discontinued, patient started on Cardizem 30 mg Q 6 hour * Continue metoprolol 50 mg q.6 * Cardiology following * Cardiology unable to cardiovert due to thrombus in the ventricle * Continue IMU status * Cardizem drip restarted today (2) Hypertension: Code(s): I10 - Essential (primary) hypertension Status: Acute Assessment and Plan: * Continue hydrochlorothiazide * Trandolapril is on hold as it is non formulary (3) History of hyperlipidemia: Code(s): Z86.39 - Personal history of other endocrine, nutritional and metabolic disease Status: Acute Assessment and Plan: * Continue atorvastatin Subjective Date/time seen: 03/25/25 14:30 Interval history: No overnight events. KAMRYN reviewed. Still in AFib with RVR. Review of Systems Review of Systems: All systems reviewed & are unremarkable except as noted in HPI and below Exam Narrative: General: In no acute distress, well nourished Cardiac: Normal S1 and S2. Irregular rate and rhythm, with RVR, No murmur, gall ops or friction rubs, peripheral pulses intact. Respiratory: Lungs clear to auscultation, no adventitious lung sounds, currently on room air Gastrointestinal: soft, non-distended, non-tender, normoactive bowel sounds. : voiding without difficulty. Neuro: Alert and oriented x4 Objective Data Vital Signs Vital Signs: Vital Signs - 24 hr 03/24/25 14:45 03/24/25 15:00 03/24/25 15:15 Temperature Pulse Rate 108 H 108 H 108 H Respiratory Rate 22 H 20 20 Blood Pressure 145/100 H 144/101 H 140/100 H Pulse Oximetry 93 95 94 Oxygen Delivery Room Air Room Air Room Air 03/24/25 15:38 03/24/25 16:00 03/24/25 16:00 Temperature 98.3 F Pulse Rate 107 H 108 H Respiratory Rate 16 Blood Pressure 133/80 Pulse Oximetry 92 Oxygen Delivery Room Air 03/24/25 17:34 03/24/25 18:00 03/24/25 18:12 Temperature Pulse Rate 109 H 144 H 133 H Respiratory Rate Blood Pressure Pulse Oximetry Oxygen Delivery 03/24/25 20:00 03/24/25 20:00 03/24/25 20:00 Temperature 98.2 F Pulse Rate 110 H 109 H Respiratory Rate 16 Blood Pressure 135/91 H Pulse Oximetry 97 Oxygen Delivery Room Air 03/24/25 22:00 03/24/25 23:23 03/24/25 23:27 Temperature Pulse Rate 105 H 114 H Respiratory Rate Blood Pressure Pulse Oximetry Oxygen Delivery Room Air 03/25/25 00:00 03/25/25 00:00 03/25/25 02:00 Temperature 97.8 F Pulse Rate 114 H 112 H 89 Respiratory Rate 16 Blood Pressure 131/77 Pulse Oximetry 95 Oxygen Delivery 03/25/25 03:56 03/25/25 04:00 03/25/25 04:00 Temperature 97.8 F Pulse Rate 94 102 H Respiratory Rate 16 Blood Pressure 107/78 Pulse Oximetry 96 Oxygen Delivery Room Air 03/25/25 05:36 03/25/25 05:53 03/25/25 08:00 Temperature 98.3 F Pulse Rate 134 H 128 H 97 Respiratory Rate 24 H Blood Pressure 117/60 Pulse Oximetry 100 Oxygen Delivery 03/25/25 08:00 03/25/25 08:00 03/25/25 10:00 Temperature Pulse Rate 89 127 H Respiratory Rate Blood Pressure Pulse Oximetry 100 Oxygen Delivery Room Air 03/25/25 12:00 03/25/25 12:00 03/25/25 12:00 Temperature 99.4 F Pulse Rate 124 H 150 H Respiratory Rate 20 Blood Pressure 115/78 Pulse Oximetry 96 100 Oxygen Delivery Room Air 03/25/25 13:14 03/25/25 13:15 03/25/25 14:00 Temperature Pulse Rate 144 H 144 H 126 H Respiratory Rate Blood Pressure Pulse Oximetry Oxygen Delivery Intake/Output Intake/Output: Intake & Output 03/22/25 03/23/25 03/24/25 03/25/25 23:59 23:59 23:59 23:59 Intake Total 1471.6 1351.9 740.0 250 Output Total 3500 1600 900 350 Balance -2028.4 -248.1 -160.0 -100 Meds/Results Medications: Active Medications Generic Name Dose Route Start Last Admin Trade Name Freq PRN Reason Stop Dose Admin Acetaminophen 650 mg 03/21/25 16:08 Acetaminophen 325 Mg Tablet PO Q4H PRN Mild Pain (1-3) or Fever Allopurinol 200 mg 03/22/25 09:00 03/25/25 09:43 Allopurinol 100 Mg Tablet PO 200 mg DAILY [facility] Administration Alprazolam 0.25 mg 03/23/25 14:26 03/24/25 08:35 Alprazolam (*Crx) 0.25 Mg Tablet PO 0.25 mg TID PRN Administration Anxiety Apixaban 5 mg 03/21/25 21:00 03/25/25 09:44 Apixaban 5 Mg Tablet PO 5 mg Q12HR [facility] Administration Atorvastatin Calcium 20 mg 03/22/25 09:00 03/25/25 09:43 Atorvastatin 20 Mg Tablet PO 20 mg DAILY [facility] Administration Benzocaine 1 spray 03/24/25 13:48 Benzocaine 20% Aer Spr (*Sp) 56 Gm Can TOPICAL PRN PRN Perineal Discomfort Hydrochlorothiazide 25 mg 03/22/25 09:00 03/25/25 09:43 Hydrochlorothiazide 25 Mg Tablet PO 25 mg DAILY [facility] Administration Diltiazem HCl 100 mg in 100 mls @ 10 mls/hr 03/25/25 12:15 03/25/25 13:15 Cardizem 100 Mg/100 Ml IV CONT 10 mg/hr .Q10H MEGGAN 10 mls/hr Administration 10 MG/HR Metoprolol Tartrate 50 mg 03/23/25 12:00 03/25/25 13:14 Metoprolol Tartrate 50 Mg Tab PO 50 mg Q6HR [facility] Administration Ondansetron HCl 4 mg 03/21/25 16:08 Ondansetron Inj 4 Mg/2 Ml Vial IV PUSH Q4H PRN Nausea Potassium Chloride 40 meq 03/24/25 17:00 03/25/25 09:44 Potassium Chloride 20 Meq Packet (For Liquid) PO 40 meq BID MEGGAN Administration Radiology Results: ITS Impressions Chest X-Ray 03/21/25 14:46 Impression: Stable central venous congestive change versus pulmonary artery hypertension. No acute abnormality seen. Labs Labs: Laboratory Results - last 24 hr 03/25/25 04:27 WBC 9.3 RBC 3.86 L Hgb 11.7 L Hct 36.4 L MCV 94.3 MCH 30.3 MCHC 32.1 RDW 16.2 H Plt Count 252 MPV 9.7 Immature Gran % (Auto) 0.3 Neut % (Auto) 67.8 Lymph % (Auto) 19.0 [place] % (Auto) 11.8 H Eos % (Auto) 0.8 Baso % (Auto) 0.3 Lymph # (Auto) 1.76 [place] # (Auto) 1.1 H Eos # (Auto) 0.1 Baso # (Auto) 0.0 Abs Immat Gran (auto) 0.03 Absolute Neuts (auto) 6.3 Absolute Nucleated RBC 0.000 Nucleated RBC % 0.0 Sodium 138 Potassium 3.7 Chloride 100 Carbon Dioxide 29 Anion Gap 9 BUN 22 H Creatinine 0.90 Estim Creat Clear Calc 61 Estimated GFR > 60 Glucose 120 H Calcium 9.1 Total Bilirubin 1.0 AST 26 ALT 26 Alkaline Phosphatase 105 Total Protein 7.0 Albumin 3.8
[2025-03-26] VITALS (29 sets, daily range): BP systolic 105–138; BP diastolic 52–80; PULSE 50–101; RESP 14–20; TEMP 36.6–37.2; O2SAT 96–99
[2025-03-26] MEDS: METOPROLOL TARTRATE 50 MG TAB PO ×3 (00:01→12:57)
[2025-03-26 04:29] LABS: Basophils Percent Auto 0.2 % (0.2-1.2); Eosinophils Absolute Auto 0.1 K/mm3 (0-0.3); Eosinophils Percent Auto 0.4 % (0-4.4); Hematocrit 38.3 % (37.0-47.0); Hemoglobin 11.9 g/dL (12.0-15.0); Immature Granulocyte Absolute 0.06 K/mm3 (0.00-0.031); Immature Granulocyte Percent A 0.5 % (0-0.5); Lymphocytes Absolute Auto 2.02 K/mm3 (0.9-3.2); Lymphocytes Percent Auto 17.8 % (18.3-44.2); Mean Corpuscular HGB Conc 31.1 g/dl (32-36); Mean Corpuscular Hemoglobin 29.9 pg (26-34); Mean Corpuscular Volume 96.2 fl (80-100); Mean Platelet Volume 9.7 fl (7.4-10.4); Monocytes Absolute Auto 1.2 K/mm3 (0.1-0.6); Monocytes Percent Auto 10.9 % (2.6-8.5); Neutrophils Percent Auto 70.2 % (45.5-73.1); Platelet Count Result 277 k/mm3 (150-375); Red Blood Count 3.98 M/mm3 (4.2-5.4); Red Cell Distribution Width 16.2 % (11.5-14.5); White Blood Count 11.3 K/mm3 (4.5-10.0)
[2025-03-26 04:45] LABS: Alanine Aminotransferase 25 U/L (6-35); Alkaline Phosphatase 105 U/L (38-126); Anion Gap 8 mmol/L (4-12); Aspartate Amino Transferase 34 U/L (14-36); Blood Urea Nitrogen 22 mg/dL (7-17); Calcium 9.6 mg/dL (8.4-10.2); Carbon Dioxide 27 mmol/L (22-30); Chloride 102 mmol/L (98-107); Estimated CRCL calculation 59 ml/min; Estimated Glomerular Filt Rate 60; Glucose 128 mg/dL (65-110); Potassium 4.2 mmol/L (3.4-5.0); Sodium 137 mmol/L (137-145)
[2025-03-26] MEDS: dilTIAZem 100 MG/100 ML 100 MG/100 ML BAG 10 MG IV CONT ×2 (08:08→18:13)
[2025-03-26] MEDS: allopurinoL 100 MG TABLET 200 MG PO (08:11)
[2025-03-26] MEDS: APIXABAN 5 MG TABLET PO ×2 (08:11→20:04)
[2025-03-26] MEDS: hydroCHLOROthiazide 25 MG TABLET PO (08:11)
[2025-03-26] MEDS: ATORVASTATIN 20 MG TABLET PO (08:11)
[2025-03-26] MEDS: POTASSIUM CHLORIDE 20 MEQ PACKET (FOR LIQUID) 40 MEQ PO ×2 (08:11→17:19)
--- NOTE | 2025-03-26 13:18 | P.PNIM_ITS ---
Progress Note: A&P Assessment and Plan (1) Atrial fibrillation with RVR: Code(s): I48.91 - Unspecified atrial fibrillation Status: Acute Assessment and Plan: * Continue Eliquis * Patient was given IV metoprolol in the ED without any improvement in her heart rate and then started on Cardizem bolus and drip.--was later called by bedside nursing who states that her heart rate is still in the 120s to low 130s on 10 mg Cardizem infusion * Amiodarone infusion discontinued, patient started on Cardizem 30 mg Q 6 hour * Continue metoprolol 50 mg q.6 * Cardiology following * Cardiology unable to cardiovert due to thrombus in the ventricle * Continue IMU status * Cardizem drip restarted 03/26/2025. Transition to oral tomorrow plan by Cardiology. (2) Hypertension: Code(s): I10 - Essential (primary) hypertension Status: Acute Assessment and Plan: * Continue hydrochlorothiazide * Trandolapril is on hold as it is non formulary (3) History of hyperlipidemia: Code(s): Z86.39 - Personal history of other endocrine, nutritional and metabolic disease Status: Acute Assessment and Plan: * Continue atorvastatin Plan Left forearm cellulitis versus thrombophlebitis. Will start empiric cephalexin. Cold compresses. Subjective Date/time seen: 03/26/25 13:18 Interval history: On Cardizem drip. Heart rate controlled. Left arm swollen from the IV site. Denies any other complaints. Review of Systems Review of Systems: All systems reviewed & are unremarkable except as noted in HPI and below Exam Narrative: General: In no acute distress, well nourished Cardiac: Normal S1 and S2. Irregular rate and rhythm, with RVR, No murmur, gallops or friction rubs, peripheral pulses intact. Respiratory: Lungs clear to auscultation, no adventitious lung sounds, currently on room air Gastrointestinal: soft, non-distended, non-tender, normoactive bowel sounds. : voiding without difficulty. Neuro: Alert and oriented x4 Extremities: Left forearm swollen and tender Objective Data Vital Signs Vital Signs: Vital Signs - 24 hr 03/25/25 14:00 03/25/25 16:00 03/25/25 16:00 Temperature 98.9 F Pulse Rate 126 H 83 101 H Respiratory Rate 24 H Blood Pressure 122/68 Pulse Oximetry 98 Oxygen Delivery 03/25/25 16:00 03/25/25 17:27 03/25/25 18:00 Temperature Pulse Rate 81 100 Respiratory Rate Blood Pressure Pulse Oximetry 100 Oxygen Delivery Room Air 03/25/25 20:00 03/25/25 20:00 03/25/25 20:00 Temperature 98.5 F Pulse Rate 109 H 109 H 102 H Respiratory Rate 18 Blood Pressure 127/66 127/66 Pulse Oximetry 95 Oxygen Delivery 03/25/25 20:30 03/25/25 22:00 03/25/25 22:00 Temperature Pulse Rate 109 H 77 77 Respiratory Rate 18 Blood Pressure 122/71 Pulse Oximetry 95 Oxygen Delivery Room Air 03/25/25 22:01 03/25/25 22:01 03/26/25 00:00 Temperature 98.2 F Pulse Rate 77 77 89 Respiratory Rate 17 Blood Pressure 122/71 125/72 Pulse Oximetry 97 Oxygen Delivery 03/26/25 00:00 03/26/25 00:00 03/26/25 00:00 Temperature Pulse Rate 82 100 89 Respiratory Rate 17 Blood Pressure 125/72 Pulse Oximetry 97 Oxygen Delivery Room Air 03/26/25 00:01 03/26/25 02:00 03/26/25 02:00 Temperature Pulse Rate 82 75 75 Respiratory Rate Blood Pressure 115/57 L 115/57 L Pulse Oximetry Oxygen Delivery 03/26/25 02:00 03/26/25 03:53 03/26/25 03:53 Temperature 98.0 F Pulse Rate 75 76 76 Respiratory Rate 17 Blood Pressure 114/72 114/72 Pulse Oximetry 97 Oxygen Delivery 03/26/25 04:00 03/26/25 04:00 03/26/25 05:08 Temperature Pulse Rate 74 76 70 Respiratory Rate 17 Blood Pressure Pulse Oximetry 97 Oxygen Delivery Room Air 03/26/25 05:53 03/26/25 06:00 03/26/25 06:08 Temperature Pulse Rate 75 82 82 Respiratory Rate Blood Pressure 114/80 114/80 Pulse Oximetry Oxygen Delivery 03/26/25 07:52 03/26/25 08:00 03/26/25 08:00 Temperature 98.3 F Pulse Rate 50 L 72 Respiratory Rate 14 Blood Pressure 105/52 L Pulse Oximetry 96 96 Oxygen Delivery Room Air 03/26/25 08:02 03/26/25 08:08 03/26/25 08:56 Temperature Pulse Rate 74 74 63 Respiratory Rate 14 Blood Pressure 119/63 Pulse Oximetry 98 Oxygen Delivery 03/26/25 09:50 03/26/25 10:00 03/26/25 12:00 Temperature 98.2 F 98.9 F Pulse Rate 65 69 67 Respiratory Rate 18 16 Blood Pressure 110/61 121/79 Pulse Oximetry 98 98 Oxygen Delivery 03/26/25 12:57 Temperature Pulse Rate 101 H Respiratory Rate Blood Pressure Pulse Oximetry Oxygen Delivery Intake/Output Intake/Output: Intake & Output 03/23/25 03/24/25 03/25/25 03/26/25 23:59 23:59 23:59 23:59 Intake Total 1351.9 740.0 1102.7 420.0 Output Total 1508 302 1888 250 Balance -248.1 -160.0 -272.3 170.0 Meds/Results Medications: Active Medications Generic Name Dose Route Start Last Admin Trade Name Freq PRN Reason Stop Dose Admin Acetaminophen 650 mg 03/21/25 16:08 Acetaminophen 325 Mg Tablet PO Q4H PRN Mild Pain (1-3) or Fever Allopurinol 200 mg 03/22/25 09:00 03/26/25 08:11 Allopurinol 100 Mg Tablet PO 200 mg DAILY [facility]GG[facility] Administration Alprazolam 0.25 mg 03/23/25 14:26 03/24/25 08:35 Alprazolam (*Crx) 0.25 Mg Tablet PO 0.25 mg TID PRN Administration Anxiety Apixaban 5 mg 03/21/25 21:00 03/26/25 08:11 Apixaban 5 Mg Tablet PO 5 mg Q12HR MEGGAN Administration Atorvastatin Calcium 20 mg 03/22/25 09:00 03/26/25 08:11 Atorvastatin 20 Mg Tablet PO 20 mg DAILY [facility] Administration Benzocaine 1 spray 03/24/25 13:48 Benzocaine 20% Aer Spr (*Sp) 56 Gm Can TOPICAL PRN PRN Perineal Discomfort Hydrochlorothiazide 25 mg 03/22/25 09:00 03/26/25 08:11 Hydrochlorothiazide 25 Mg Tablet PO 25 mg DAILY [facility] Administration Diltiazem HCl 100 mg in 100 mls @ 10 mls/hr 03/25/25 12:15 03/26/25 08:08 Cardizem 100 Mg/100 Ml IV CONT 10 mg/hr .Q10H MEGGAN 10 mls/hr Administration 10 MG/HR Metoprolol Tartrate 50 mg 03/23/25 12:00 03/26/25 12:57 Metoprolol Tartrate 50 Mg Tab PO 50 mg Q6HR [facility] Administration Ondansetron HCl 4 mg 03/21/25 16:08 Ondansetron Inj 4 Mg/2 Ml Vial IV PUSH Q4H PRN Nausea Potassium Chloride 40 meq 03/24/25 17:00 03/26/25 08:11 Potassium Chloride 20 Meq Packet (For Liquid) PO 40 meq BID MEGGAN Administration Radiology Results: ITS Impressions Chest X-Ray 03/21/25 14:46 Impression: Stable central venous congestive change versus pulmonary artery hypertension. No acute abnormality seen. Labs Labs: Laboratory Results - last 24 hr 03/26/25 04:10 WBC 11.3 H RBC 3.98 L Hgb 11.9 L Hct 38.3 MCV 96.2 MCH 29.9 MCHC 31.1 L RDW 16.2 H Plt Count 277 MPV 9.7 Immature Gran % (Auto) 0.5 Neut % (Auto) 70.2 Lymph % (Auto) 17.8 L [place] % (Auto) 10.9 H Eos % (Auto) 0.4 Baso % (Auto) 0.2 Lymph # (Auto) 2.02 [place] # (Auto) 1.2 H Eos # (Auto) 0.1 Baso # (Auto) 0.0 Abs Immat Gran (auto) 0.06 H Absolute Neuts (auto) 8.0 H Absolute Nucleated RBC 0.000 Nucleated RBC % 0.0 Sodium 137 Potassium 4.2 Chloride 102 Carbon Dioxide 27 Anion Gap 8 BUN 22 H Creatinine 0.93 Estim Creat Clear Calc 59 Estimated GFR 60 Glucose 128 H Calcium 9.6 Total Bilirubin 1.0 AST 34 ALT 25 Alkaline Phosphatase 105 Total Protein 7.0 Albumin 4.0
--- NOTE | 2025-03-26 14:59 | PM.PNCARD ---
Progress Note: A&P Assessment and Plan (1) Atrial fibrillation with RVR: Code(s): I48.91 - Unspecified atrial fibrillation Status: Acute (2) Hypertension: Code(s): I10 - Essential (primary) hypertension Status: Acute (3) History of hyperlipidemia: Code(s): Z86.39 - Personal history of other endocrine, nutritional and metabolic disease Status: Acute Plan 1. Atrial Flutter with RVR. CHADSVASC of 3 for age, gender, hypertension. 2. Hypertension 3. Hyperlipidemia 4. Lymphedema 5. 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 Anxiety PLAN: -she was started on amiodarone infusion on admission because of difficult to control heart rate after discussion with the initial consulting child guidance counselor. Will discontinue amiodarone now because of the presence of suspected left atrial appendage thrombus. -Continue IV diltiazem, will transition to a long acting diltiazem tomorrow -continue metoprolol; will chnage to 100 mg PO BID -She will need an ablation as an outpatient for atrial flutter. With an extremely dilated left atrium I think she may not remain in sinus rhythm despite a successful cardioversion later on -if rates are difficult to control on current medications, she may need AV remberto ablation and a pacemaker -continue Eliquis 5mg BID. Subjective Date/time seen: 03/26/25 14:59 Interval history: HR better controlled on diltiazem infusion and metoprolol Review of Systems Cardiovascular: Cardiovascular: Reports as per HPI Respiratory: Respiratory: Reports as per HPI Exam Const: General: comfortable HENMT: Mouth: Yes moist mucous membranes Eyes: EOM: EOMs intact bilaterally Neck: Neck: no JVD Resp: Effort & Inspection: normal respiratory effort Auscultation: clear to auscultation bilaterally Cardio: Rate: regular rate Rhythm: regular rhythm Extrem: General: no pedal edema Objective Data Vital Signs Vital Signs: Vital Signs - 24 hr 03/25/25 16:00 03/25/25 16:00 03/25/25 16:00 Temperature 37.2 C Pulse Rate 83 101 H Respiratory Rate 24 H Blood Pressure 122/68 Pulse Oximetry 98 100 Oxygen Delivery Room Air 03/25/25 17:27 03/25/25 18:00 03/25/25 20:00 Temperature 36.9 C Pulse Rate 81 100 109 H Respiratory Rate 18 Blood Pressure 127/66 Pulse Oximetry 95 Oxygen Delivery 03/25/25 20:00 03/25/25 20:00 03/25/25 20:30 Temperature Pulse Rate 109 H 102 H 109 H Respiratory Rate 18 Blood Pressure 127/66 Pulse Oximetry 95 Oxygen Delivery Room Air 03/25/25 22:00 03/25/25 22:00 03/25/25 22:01 Temperature Pulse Rate 77 77 77 Respiratory Rate Blood Pressure 122/71 Pulse Oximetry Oxygen Delivery 03/25/25 22:01 03/26/25 00:00 03/26/25 00:00 Temperature 36.8 C Pulse Rate 77 89 82 Respiratory Rate 17 17 Blood Pressure 122/71 125/72 Pulse Oximetry 97 97 Oxygen Delivery Room Air 03/26/25 00:00 03/26/25 00:00 03/26/25 00:01 Temperature Pulse Rate 100 89 82 Respiratory Rate Blood Pressure 125/72 Pulse Oximetry Oxygen Delivery 03/26/25 02:00 03/26/25 02:00 03/26/25 02:00 Temperature Pulse Rate 75 75 75 Respiratory Rate Blood Pressure 115/57 L 115/57 L Pulse Oximetry Oxygen Delivery 03/26/25 03:53 03/26/25 03:53 03/26/25 04:00 Temperature 36.7 C Pulse Rate 76 76 74 Respiratory Rate 17 Blood Pressure 114/72 114/72 Pulse Oximetry 97 Oxygen Delivery 03/26/25 04:00 03/26/25 05:08 03/26/25 05:53 Temperature Pulse Rate 76 70 75 Respiratory Rate 17 Blood Pressure Pulse Oximetry 97 Oxygen Delivery Room Air 03/26/25 06:00 03/26/25 06:08 03/26/25 07:52 Temperature 36.8 C Pulse Rate 82 82 50 L Respiratory Rate 14 Blood Pressure 114/80 114/80 105/52 L Pulse Oximetry 96 Oxygen Delivery 03/26/25 08:00 03/26/25 08:00 03/26/25 08:02 Temperature Pulse Rate 72 74 Respiratory Rate Blood Pressure Pulse Oximetry 96 Oxygen Delivery Room Air 03/26/25 08:08 03/26/25 08:56 03/26/25 09:50 Temperature 36.8 C Pulse Rate 74 63 65 Respiratory Rate 14 18 Blood Pressure 119/63 110/61 Pulse Oximetry 98 98 Oxygen Delivery 03/26/25 10:00 03/26/25 12:00 03/26/25 12:00 Temperature 37.2 C Pulse Rate 69 67 Respiratory Rate 16 Blood Pressure 121/79 Pulse Oximetry 98 97 Oxygen Delivery Room Air 03/26/25 12:00 03/26/25 12:57 03/26/25 14:00 Temperature 36.9 C Pulse Rate 95 101 H 72 Respiratory Rate 16 Blood Pressure 133/67 Pulse Oximetry 98 Oxygen Delivery Intake/Output Intake/Output: Intake & Output 03/23/25 03/24/25 03/25/25 03/26/25 23:59 23:59 23:59 23:59 Intake Total 1351.9 740.0 1102.7 660.0 Output Total 1657 737 9816 250 Balance -248.1 -160.0 -272.3 410.0 Meds/Results Medications: Active Medications Generic Name Dose Route Start Last Admin Trade Name Freq PRN Reason Stop Dose Admin Acetaminophen 650 mg 03/21/25 16:08 Acetaminophen 325 Mg Tablet PO Q4H PRN Mild Pain (1-3) or Fever Allopurinol 200 mg 03/22/25 09:00 03/26/25 08:11 Allopurinol 100 Mg Tablet PO 200 mg DAILY [facility] Administration Alprazolam 0.25 mg 03/23/25 14:26 03/24/25 08:35 Alprazolam (*Crx) 0.25 Mg Tablet PO 0.25 mg TID PRN Administration Anxiety Apixaban 5 mg 03/21/25 21:00 03/26/25 08:11 Apixaban 5 Mg Tablet PO 5 mg Q12HR [facility] Administration Atorvastatin Calcium 20 mg 03/22/25 09:00 03/26/25 08:11 Atorvastatin 20 Mg Tablet PO 20 mg DAILY [facility] Administration Benzocaine 1 spray 03/24/25 13:48 Benzocaine 20% Aer Spr (*Sp) 56 Gm Can TOPICAL PRN PRN Perineal Discomfort Cephalexin HCl 500 mg 03/26/25 18:00 Cephalexin 500 Mg Capsule PO Q6HR [facility] Diclofenac Sodium 1 applic 03/26/25 17:00 Diclofenac Sodium 1% 100 Gm Gel (*Bkc) TOPICAL QID [facility] Hydrochlorothiazide 25 mg 03/22/25 09:00 03/26/25 08:11 Hydrochlorothiazide 25 Mg Tablet PO 25 mg DAILY [facility] Administration Diltiazem HCl 100 mg in 100 mls @ 10 mls/hr 03/25/25 12:15 03/26/25 08:08 Cardizem 100 Mg/100 Ml IV CONT 10 mg/hr .Q10H MEGGAN 10 mls/hr Administration 10 MG/HR Metoprolol Tartrate 50 mg 03/23/25 12:00 03/26/25 12:57 Metoprolol Tartrate 50 Mg Tab PO 50 mg Q6HR [facility]GGAN Administration Miscellaneous Information 0 each 03/26/25 00:01 Diclofenac Add Site Of Use XX 04/25/25 00:00 CLARIFY MEGGAN Ondansetron HCl 4 mg 03/21/25 16:08 Ondansetron Inj 4 Mg/2 Ml Vial IV PUSH Q4H PRN Nausea Potassium Chloride 40 meq 03/24/25 17:00 03/26/25 08:11 Potassium Chloride 20 Meq Packet (For Liquid) PO 40 meq BID MEGGAN Administration Radiology Results: ITS Impressions Chest X-Ray 03/21/25 14:46 Impression: Stable central venous congestive change versus pulmonary artery hypertension. No acute abnormality seen. Labs Labs: Laboratory Results - last 24 hr 03/26/25 04:10 WBC 11.3 H RBC 3.98 L Hgb 11.9 L Hct 38.3 MCV 96.2 MCH 29.9 MCHC 31.1 L RDW 16.2 H Plt Count 277 MPV 9.7 Immature Gran % (Auto) 0.5 Neut % (Auto) 70.2 Lymph % (Auto) 17.8 L [place] % (Auto) 10.9 H Eos % (Auto) 0.4 Baso % (Auto) 0.2 Lymph # (Auto) 2.02 [place] # (Auto) 1.2 H Eos # (Auto) 0.1 Baso # (Auto) 0.0 Abs Immat Gran (auto) 0.06 H Absolute Neuts (auto) 8.0 H Absolute Nucleated RBC 0.000 Nucleated RBC % 0.0 Sodium 137 Potassium 4.2 Chloride 102 Carbon Dioxide 27 Anion Gap 8 BUN 22 H Creatinine 0.93 Estim Creat Clear Calc 59 Estimated GFR 60 Glucose 128 H Calcium 9.6 Total Bilirubin 1.0 AST 34 ALT 25 Alkaline Phosphatase 105 Total Protein 7.0 Albumin 4.0
[2025-03-26] MEDS: CEPHALEXIN 500 MG CAPSULE PO (17:19)
[2025-03-26] MEDS: DICLOFENAC SODIUM 1% 100 GM GEL (*BKC) 1 APPLIC TOPICAL ×2 (17:19→20:05)
[2025-03-26] MEDS: ALPRAZolam (*CRX) 0.25 MG TABLET PO (20:03)
[2025-03-26] MEDS: METOPROLOL TARTRATE 50 MG TAB 100 MG PO (20:04)
[2025-03-27] VITALS (15 sets, daily range): BP systolic 108–142; BP diastolic 65–88; PULSE 71–110; RESP 16–20; TEMP 36.4–36.8; O2SAT 96–100
[2025-03-27] MEDS: CEPHALEXIN 500 MG CAPSULE PO ×4 (00:18→17:17)
[2025-03-27 04:26] LABS: Basophils Percent Auto 0.2 % (0.2-1.2); Eosinophils Absolute Auto 0.1 K/mm3 (0-0.3); Eosinophils Percent Auto 0.5 % (0-4.4); Hematocrit 38.8 % (37.0-47.0); Hemoglobin 12.1 g/dL (12.0-15.0); Immature Granulocyte Absolute 0.04 K/mm3 (0.00-0.031); Immature Granulocyte Percent A 0.4 % (0-0.5); Lymphocytes Absolute Auto 1.96 K/mm3 (0.9-3.2); Lymphocytes Percent Auto 19.9 % (18.3-44.2); Mean Corpuscular HGB Conc 31.2 g/dl (32-36); Mean Corpuscular Hemoglobin 29.4 pg (26-34); Mean Corpuscular Volume 94.4 fl (80-100); Mean Platelet Volume 9.6 fl (7.4-10.4); Monocytes Absolute Auto 0.9 K/mm3 (0.1-0.6); Monocytes Percent Auto 9.2 % (2.6-8.5); Neutrophils Absolute Auto 6.9 K/mm3 (1.3-6.7); Neutrophils Percent Auto 69.8 % (45.5-73.1); Platelet Count Result 280 k/mm3 (150-375); Red Blood Count 4.11 M/mm3 (4.2-5.4); Red Cell Distribution Width 15.9 % (11.5-14.5); White Blood Count 9.8 K/mm3 (4.5-10.0)
[2025-03-27 04:40] LABS: Alanine Aminotransferase 24 U/L (6-35); Albumin Level 3.9 g/dL (3.5-5.1); Alkaline Phosphatase 100 U/L (38-126); Anion Gap 9 mmol/L (4-12); Aspartate Amino Transferase 25 U/L (14-36); Bilirubin,Total 0.7 mg/dL (0.2-1.3); Blood Urea Nitrogen 24 mg/dL (7-17); Calcium 9.3 mg/dL (8.4-10.2); Carbon Dioxide 25 mmol/L (22-30); Chloride 104 mmol/L (98-107); Estimated CRCL calculation 69 ml/min; Estimated Glomerular Filt Rate > 60; Glucose 120 mg/dL (65-110); Potassium 4.3 mmol/L (3.4-5.0); Sodium 138 mmol/L (137-145)
[2025-03-27] MEDS: dilTIAZem 100 MG/100 ML 100 MG/100 ML BAG IV CONT ×2 (05:47)
[2025-03-27] MEDS: APIXABAN 5 MG TABLET PO (09:00)
[2025-03-27] MEDS: allopurinoL 100 MG TABLET 200 MG PO (09:01)
[2025-03-27] MEDS: POTASSIUM CHLORIDE 20 MEQ PACKET (FOR LIQUID) 40 MEQ PO ×2 (09:01→17:17)
[2025-03-27] MEDS: hydroCHLOROthiazide 25 MG TABLET PO (09:01)
[2025-03-27] MEDS: METOPROLOL TARTRATE 50 MG TAB 100 MG PO (09:01)
[2025-03-27] MEDS: ATORVASTATIN 20 MG TABLET PO (09:01)
[2025-03-27] MEDS: DICLOFENAC SODIUM 1% 100 GM GEL (*BKC) 1 APPLIC TOPICAL ×3 (09:15→17:17)
--- NOTE | 2025-03-27 11:13 | P.PNCA_ITS ---
Progress Note: A&P Assessment and Plan (1) Atrial fibrillation with RVR: Code(s): I48.91 - Unspecified atrial fibrillation Status: Acute (2) Hypertension: Code(s): I10 - Essential (primary) hypertension Status: Acute (3) History of hyperlipidemia: Code(s): Z86.39 - Personal history of other endocrine, nutritional and metabolic disease Status: Acute Plan 1. Atrial Flutter with RVR. CHADSVASC of 3 for age, gender, hypertension. 2. Hypertension 3. Hyperlipidemia 4. Lymphedema 5. 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 Anxiety PLAN: -she was started on amiodarone infusion on admission because of difficult to control heart rate after discussion with the initial consulting pricing lead which was subsequently discontinued because of suspicion for SHERLYN thrombus. -Transition to p.o. diltiazem today (30mg q6h), then I have scheduled 240mg long acting diltiazem to start tomorrow. -continue metoprolol 100mg b.i.d. (this can be shifted to 200mg ToprolXL daily at discharge for dosing convenience) -She will need an ablation as an outpatient for atrial flutter. With an extremely dilated left atrium I think she may not remain in sinus rhythm despite a successful cardioversion later on -continue Eliquis 5mg BID. -Heart rates now adequately controlled. Will refer to EP for possible ablation and follow up with her in our office in a few weeks for consideration of outpatient cardioversion in the meantime. -Can be discharged from a cardiac perspective. Subjective Date/time seen: 03/27/25 11:13 Interval history: Cardiology follow up visit She is feeling well today. No palpitations, chest pain, shortness of breath. Heart rate is well controlled on telemetry. Review of Systems Review of Systems: All systems reviewed & are unremarkable except as noted in HPI and below (HPI) Cardiovascular: Cardiovascular: Reports as per HPI Respiratory: Respiratory: Reports as per HPI Exam Const: General: comfortable and no acute distress HENMT: Mouth: Yes moist mucous membranes Eyes: General: appearance normal, both eyes and all related structures Sclera: sclerae normal EOM: EOMs intact bilaterally Neck: Neck: no JVD Resp: Effort & Inspection: normal respiratory effort Auscultation: clear to auscultation bilaterally Cardio: Rate: regular rate Rhythm: regular rhythm and abnormal rhythm irregularly irregular Heart sounds: no murmurs Skin: General skin exam: erythema Neuro: Speech: normal speech Extrem: General: no pedal edema Psych: Mental Status: mental status grossly normal Affect: normal affect Objective Data Vital Signs Vital Signs: Vital Signs - 24 hr 03/26/25 12:00 03/26/25 12:00 03/26/25 12:00 Temperature 37.2 C Pulse Rate 67 95 Respiratory Rate 16 Blood Pressure 121/79 Pulse Oximetry 98 97 Oxygen Delivery Room Air 03/26/25 12:57 03/26/25 14:00 03/26/25 14:00 Temperature 36.9 C Pulse Rate 101 H 72 74 Respiratory Rate 16 Blood Pressure 133/67 Pulse Oximetry 98 Oxygen Delivery 03/26/25 16:00 03/26/25 16:00 03/26/25 16:00 Temperature 37.2 C Pulse Rate 82 92 Respiratory Rate 20 Blood Pressure 138/68 Pulse Oximetry 99 98 Oxygen Delivery Room Air 03/26/25 18:00 03/26/25 18:00 03/26/25 18:08 Temperature 36.8 C Pulse Rate 75 88 86 Respiratory Rate 18 Blood Pressure 124/75 Pulse Oximetry 98 Oxygen Delivery 03/26/25 18:13 03/26/25 19:34 03/26/25 20:00 Temperature 36.6 C Pulse Rate 86 99 80 Respiratory Rate 18 Blood Pressure 116/63 Pulse Oximetry 98 Oxygen Delivery Room Air 03/26/25 20:00 03/26/25 20:00 03/26/25 20:04 Temperature Pulse Rate 76 92 92 Respiratory Rate Blood Pressure 116/63 Pulse Oximetry Oxygen Delivery 03/26/25 21:58 03/26/25 22:00 03/26/25 23:47 Temperature Pulse Rate 73 61 68 Respiratory Rate Blood Pressure 106/64 Pulse Oximetry Oxygen Delivery Room Air 03/27/25 00:00 03/27/25 00:00 03/27/25 00:00 Temperature 36.4 C Pulse Rate 71 73 73 Respiratory Rate 20 Blood Pressure 113/69 113/69 Pulse Oximetry 97 Oxygen Delivery 03/27/25 01:56 03/27/25 02:00 03/27/25 02:00 Temperature Pulse Rate 72 72 72 Respiratory Rate Blood Pressure 108/65 108/65 Pulse Oximetry 97 Oxygen Delivery 03/27/25 04:00 03/27/25 04:00 03/27/25 04:00 Temperature 36.6 C Pulse Rate 104 H 74 81 Respiratory Rate 20 Blood Pressure 122/68 Pulse Oximetry 96 Oxygen Delivery Room Air 03/27/25 04:00 03/27/25 05:47 03/27/25 05:47 Temperature Pulse Rate 104 H 79 79 Respiratory Rate Blood Pressure 122/68 127/69 127/69 Pulse Oximetry Oxygen Delivery 03/27/25 05:49 03/27/25 06:10 03/27/25 08:00 Temperature 36.8 C Pulse Rate 88 91 105 H Respiratory Rate 18 Blood Pressure 127/69 129/74 Pulse Oximetry 98 Oxygen Delivery 03/27/25 08:00 03/27/25 08:00 03/27/25 09:01 Temperature Pulse Rate 105 H 107 H 91 Respiratory Rate Blood Pressure 129/74 Pulse Oximetry Oxygen Delivery 03/27/25 09:45 03/27/25 10:00 03/27/25 10:00 Temperature Pulse Rate 110 H 110 H 110 H Respiratory Rate Blood Pressure 118/83 118/83 Pulse Oximetry Oxygen Delivery 03/27/25 10:00 Temperature Pulse Rate 110 H Respiratory Rate Blood Pressure 118/88 Pulse Oximetry Oxygen Delivery Intake/Output Intake/Output: Intake & Output 03/24/25 03/25/25 03/26/25 03/27/25 23:59 23:59 23:59 23:59 Intake Total 740.0 1102.7 1587.5 691.3 Output Total 900 1375 250 500 Balance -160.0 -272.3 1337.5 191.3 Meds/Results Medications: Active Medications Generic Name Dose Route Start Last Admin Trade Name Freq PRN Reason Stop Dose Admin Acetaminophen 650 mg 03/21/25 16:08 Acetaminophen 325 Mg Tablet PO Q4H PRN Mild Pain (1-3) or Fever Allopurinol 200 mg 03/22/25 09:00 03/27/25 09:01 Allopurinol 100 Mg Tablet PO 200 mg DAILY [facility] Administration Alprazolam 0.25 mg 03/23/25 14:26 03/26/25 20:03 Alprazolam (*Crx) 0.25 Mg Tablet PO 0.25 mg TID PRN Administration Anxiety Apixaban 5 mg 03/21/25 21:00 03/27/25 09:00 Apixaban 5 Mg Tablet PO 5 mg Q12HR [facility] Administration Atorvastatin Calcium 20 mg 03/22/25 09:00 03/27/25 09:01 Atorvastatin 20 Mg Tablet PO 20 mg DAILY [facility] Administration Benzocaine 1 spray 03/24/25 13:48 Benzocaine 20% Aer Spr (*Sp) 56 Gm Can TOPICAL PRN PRN Perineal Discomfort Cephalexin HCl 500 mg 03/26/25 18:00 03/27/25 05:46 Cephalexin 500 Mg Capsule PO 500 mg Q6HR [facility] Administration Diclofenac Sodium 1 applic 03/26/25 17:00 03/27/25 09:15 Diclofenac Sodium 1% 100 Gm Gel (*Bkc) TOPICAL 1 applic QID [facility] Administration Hydrochlorothiazide 25 mg 03/22/25 09:00 03/27/25 09:01 Hydrochlorothiazide 25 Mg Tablet PO 25 mg DAILY [facility] Administration Diltiazem HCl 100 mg in 100 mls @ 10 mls/hr 03/26/25 23:55 03/27/25 10:00 Cardizem 100 Mg/100 Ml IV CONT 10 mg/hr .Q10H MEGGAN 10 mls/hr Infusion 10 MG/HR Metoprolol Tartrate 100 mg 03/26/25 21:00 03/27/25 09:01 Metoprolol Tartrate 50 Mg Tab PO 100 mg Q12HR [facility] Administration Ondansetron HCl 4 mg 03/21/25 16:08 Ondansetron Inj 4 Mg/2 Ml Vial IV PUSH Q4H PRN Nausea Potassium Chloride 40 meq 03/24/25 17:00 03/27/25 09:01 Potassium Chloride 20 Meq Packet (For Liquid) PO 40 meq BID [facility]GGAN Administration Radiology Results: ITS Impressions Chest X-Ray 03/21/25 14:46 Impression: Stable central venous congestive change versus pulmonary artery hypertension. No acute abnormality seen. Labs Labs: Laboratory Results - last 24 hr 03/27/25 03:56 WBC 9.8 RBC 4.11 L Hgb 12.1 Hct 38.8 MCV 94.4 MCH 29.4 MCHC 31.2 L RDW 15.9 H Plt Count 280 MPV 9.6 Immature Gran % (Auto) 0.4 Neut % (Auto) 69.8 Lymph % (Auto) 19.9 [place] % (Auto) 9.2 H Eos % (Auto) 0.5 Baso % (Auto) 0.2 Lymph # (Auto) 1.96 [place] # (Auto) 0.9 H Eos # (Auto) 0.1 Baso # (Auto) 0.0 Abs Immat Gran (auto) 0.04 H Absolute Neuts (auto) 6.9 H Absolute Nucleated RBC 0.000 Nucleated RBC % 0.0 Sodium 138 Potassium 4.3 Chloride 104 Carbon Dioxide 25 Anion Gap 9 BUN 24 H Creatinine 0.79 Estim Creat Clear Calc 69 Estimated GFR > 60 Glucose 120 H Calcium 9.3 Total Bilirubin 0.7 AST 25 ALT 24 Alkaline Phosphatase 100 Total Protein 7.0 Albumin 3.9 Quality VTE Prophylaxis VTE prophylaxis: pharmacologic ordered
--- NOTE | 2025-03-27 11:21 | P.PNIM_ITS ---
Progress Note: A&P Assessment and Plan (1) Atrial fibrillation with RVR: Code(s): I48.91 - Unspecified atrial fibrillation Status: Acute Assessment and Plan: * Continue Eliquis * Patient was given IV metoprolol in the ED without any improvement in her heart rate and then started on Cardizem bolus and drip.--was later called by bedside nursing who states that her heart rate is still in the 120s to low 130s on 10 mg Cardizem infusion * Amiodarone infusion discontinued, patient started on Cardizem 30 mg Q 6 hour * Continue metoprolol 50 mg q.6 * Cardiology following * Cardiology unable to cardiovert due to thrombus in the ventricle * Continue IMU status * Cardizem drip restarted 03/26/2025. Transition to oral tomorrow plan by Cardiology. Currently on diltiazem 10 milligram/hour (2) Hypertension: Code(s): I10 - Essential (primary) hypertension Status: Acute Assessment and Plan: * Continue hydrochlorothiazide * Trandolapril is on hold as it is non formulary (3) History of hyperlipidemia: Code(s): Z86.39 - Personal history of other endocrine, nutritional and metabolic disease Status: Acute Assessment and Plan: * Continue atorvastatin Plan Left forearm cellulitis versus thrombophlebitis. Started on empiric cephalexin. Cold compresses. Improved. Finished 7 days course Subjective Date/time seen: 03/27/25 11:21 Interval history: Remains on Cardizem drip. Intermittently high. Plans to transition to oral today. Left arm feeling better. Review of Systems Review of Systems: All systems reviewed & are unremarkable except as noted in HPI and below Exam Narrative: General: In no acute distress, well nourished Cardiac: Normal S1 and S2. Irregular rate and rhythm, with RVR, No murmur, gallops or friction rubs, peripheral pulses intact. Respiratory: Lungs clear to auscultation, no adventitious lung sounds, currently on room air Gastrointestinal: soft, non-distended, non-tender, normoactive bowel sounds. : voiding without difficulty. Neuro: Alert and oriented x4 Extremities: Left forearm swollen and tender Objective Data Vital Signs Vital Signs: Vital Signs - 24 hr 03/26/25 12:00 03/26/25 12:00 03/26/25 12:00 Temperature 98.9 F Pulse Rate 67 95 Respiratory Rate 16 Blood Pressure 121/79 Pulse Oximetry 98 97 Oxygen Delivery Room Air 03/26/25 12:57 03/26/25 14:00 03/26/25 14:00 Temperature 98.4 F Pulse Rate 101 H 72 74 Respiratory Rate 16 Blood Pressure 133/67 Pulse Oximetry 98 Oxygen Delivery 03/26/25 16:00 03/26/25 16:00 03/26/25 16:00 Temperature 98.9 F Pulse Rate 82 92 Respiratory Rate 20 Blood Pressure 138/68 Pulse Oximetry 99 98 Oxygen Delivery Room Air 03/26/25 18:00 03/26/25 18:00 03/26/25 18:08 Temperature 98.2 F Pulse Rate 75 88 86 Respiratory Rate 18 Blood Pressure 124/75 Pulse Oximetry 98 Oxygen Delivery 03/26/25 18:13 03/26/25 19:34 03/26/25 20:00 Temperature 98 F Pulse Rate 86 99 80 Respiratory Rate 18 Blood Pressure 116/63 Pulse Oximetry 98 Oxygen Delivery Room Air 03/26/25 20:00 03/26/25 20:00 03/26/25 20:04 Temperature Pulse Rate 76 92 92 Respiratory Rate Blood Pressure 116/63 Pulse Oximetry Oxygen Delivery 03/26/25 21:58 03/26/25 22:00 03/26/25 23:47 Temperature Pulse Rate 73 61 68 Respiratory Rate Blood Pressure 106/64 Pulse Oximetry Oxygen Delivery Room Air 03/27/25 00:00 03/27/25 00:00 03/27/25 00:00 Temperature 97.6 F Pulse Rate 71 73 73 Respiratory Rate 20 Blood Pressure 113/69 113/69 Pulse Oximetry 97 Oxygen Delivery 03/27/25 01:56 03/27/25 02:00 03/27/25 02:00 Temperature Pulse Rate 72 72 72 Respiratory Rate Blood Pressure 108/65 108/65 Pulse Oximetry 97 Oxygen Delivery 03/27/25 04:00 03/27/25 04:00 03/27/25 04:00 Temperature 98 F Pulse Rate 104 H 74 81 Respiratory Rate 20 Blood Pressure 122/68 Pulse Oximetry 96 Oxygen Delivery Room Air 03/27/25 04:00 03/27/25 05:47 03/27/25 05:47 Temperature Pulse Rate 104 H 79 79 Respiratory Rate Blood Pressure 122/68 127/69 127/69 Pulse Oximetry Oxygen Delivery 03/27/25 05:49 03/27/25 06:10 03/27/25 08:00 Temperature 98.2 F Pulse Rate 88 91 105 H Respiratory Rate 18 Blood Pressure 127/69 129/74 Pulse Oximetry 98 Oxygen Delivery 03/27/25 08:00 03/27/25 08:00 03/27/25 09:01 Temperature Pulse Rate 105 H 107 H 91 Respiratory Rate Blood Pressure 129/74 Pulse Oximetry Oxygen Delivery 03/27/25 09:45 03/27/25 10:00 03/27/25 10:00 Temperature Pulse Rate 110 H 110 H 110 H Respiratory Rate Blood Pressure 118/83 118/83 Pulse Oximetry Oxygen Delivery 03/27/25 10:00 Temperature Pulse Rate 110 H Respiratory Rate Blood Pressure 118/88 Pulse Oximetry Oxygen Delivery Intake/Output Intake/Output: Intake & Output 03/24/25 03/25/25 03/26/25 03/27/25 23:59 23:59 23:59 23:59 Intake Total 740.0 1102.7 1587.5 691.3 Output Total 900 1375 250 500 Balance -160.0 -272.3 1337.5 191.3 Meds/Results Medications: Active Medications Generic Name Dose Route Start Last Admin Trade Name Freq PRN Reason Stop Dose Admin Acetaminophen 650 mg 03/21/25 16:08 Acetaminophen 325 Mg Tablet PO Q4H PRN Mild Pain (1-3) or Fever Allopurinol 200 mg 03/22/25 09:00 03/27/25 09:01 Allopurinol 100 Mg Tablet PO 200 mg DAILY MEGGAN Administration Alprazolam 0.25 mg 03/23/25 14:26 03/26/25 20:03 Alprazolam (*Crx) 0.25 Mg Tablet PO 0.25 mg TID PRN Administration Anxiety Apixaban 5 mg 03/21/25 21:00 03/27/25 09:00 Apixaban 5 Mg Tablet PO 5 mg Q12HR MEGGAN Administration Atorvastatin Calcium 20 mg 03/22/25 09:00 03/27/25 09:01 Atorvastatin 20 Mg Tablet PO 20 mg DAILY MEGGAN Administration Benzocaine 1 spray 03/24/25 13:48 Benzocaine 20% Aer Spr (*Sp) 56 Gm Can TOPICAL PRN PRN Perineal Discomfort Cephalexin HCl 500 mg 03/26/25 18:00 03/27/25 05:46 Cephalexin 500 Mg Capsule PO 500 mg Q6HR MEGGAN Administration Diclofenac Sodium 1 applic 03/26/25 17:00 03/27/25 09:15 Diclofenac Sodium 1% 100 Gm Gel (*Bkc) TOPICAL 1 applic QID MEGGAN Administration Hydrochlorothiazide 25 mg 03/22/25 09:00 03/27/25 09:01 Hydrochlorothiazide 25 Mg Tablet PO 25 mg DAILY MEGGAN Administration Diltiazem HCl 100 mg in 100 mls @ 10 mls/hr 03/26/25 23:55 03/27/25 10:00 Cardizem 100 Mg/100 Ml IV CONT 10 mg/hr .Q10H MEGGAN 10 mls/hr Infusion 10 MG/HR Metoprolol Tartrate 100 mg 03/26/25 21:00 03/27/25 09:01 Metoprolol Tartrate 50 Mg Tab PO 100 mg Q12HR MEGGAN Administration Ondansetron HCl 4 mg 03/21/25 16:08 Ondansetron Inj 4 Mg/2 Ml Vial IV PUSH Q4H PRN Nausea Potassium Chloride 40 meq 03/24/25 17:00 03/27/25 09:01 Potassium Chloride 20 Meq Packet (For Liquid) PO 40 meq BID MEGGAN Administration Radiology Results: ITS Impressions Chest X-Ray 03/21/25 14:46 Impression: Stable central venous congestive change versus pulmonary artery hypertension. No acute abnormality seen. Labs Labs: Laboratory Results - last 24 hr 03/27/25 03:56 WBC 9.8 RBC 4.11 L Hgb 12.1 Hct 38.8 MCV 94.4 MCH 29.4 MCHC 31.2 L RDW 15.9 H Plt Count 280 MPV 9.6 Immature Gran % (Auto) 0.4 Neut % (Auto) 69.8 Lymph % (Auto) 19.9 [place] % (Auto) 9.2 H Eos % (Auto) 0.5 Baso % (Auto) 0.2 Lymph # (Auto) 1.96 [place] # (Auto) 0.9 H Eos # (Auto) 0.1 Baso # (Auto) 0.0 Abs Immat Gran (auto) 0.04 H Absolute Neuts (auto) 6.9 H Absolute Nucleated RBC 0.000 Nucleated RBC % 0.0 Sodium 138 Potassium 4.3 Chloride 104 Carbon Dioxide 25 Anion Gap 9 BUN 24 H Creatinine 0.79 Estim Creat Clear Calc 69 Estimated GFR > 60 Glucose 120 H Calcium 9.3 Total Bilirubin 0.7 AST 25 ALT 24 Alkaline Phosphatase 100 Total Protein 7.0 Albumin 3.9
[2025-03-27] MEDS: dilTIAZem HCL 30 MG TABLET PO ×2 (13:02→17:16)
--- NOTE | 2025-03-27 14:04 | P.DS_ITS ---
DS: Admitting Diagnosis Discharge Date 03/27/2025 Admitting Diagnosis AFib DS: Discharge Diagnosis Discharge Diagnosis (1) Atrial fibrillation with RVR: Code(s): I48.91 - Unspecified atrial fibrillation Status: Acute (2) Hypertension: Code(s): I10 - Essential (primary) hypertension Status: Acute (3) History of hyperlipidemia: Code(s): Z86.39 - Personal history of other endocrine, nutritional and metabolic disease Status: Acute DS: Summary Hospital Course Hospital Course: # Atrial fibrillation with RVR: * Continue Eliquis * Patient was given IV metoprolol in the ED without any improvement in her heart rate and then started on Cardizem bolus and drip.--was later called by bedside nursing who states that her heart rate is still in the 120s to low 130s on 10 mg Cardizem infusion * Amiodarone infusion discontinued, patient started on Cardizem 30 mg Q 6 hour * Continue metoprolol 50 mg q.6 * Cardiology following * Cardiology unable to cardiovert due to thrombus in the ventricle * Continue IMU status * Cardizem drip restarted 03/26/2025. Transition to oral by Cardiology # Hypertension: * Continue hydrochlorothiazide * Trandolapril is on hold as it is non formulary # History of hyperlipidemia: * Continue atorvastatin # Left forearm cellulitis versus thrombophlebitis. Started on empiric cephalexin. Cold compresses. Improved. Finished 7 days course Time Spent with Patient Time attestation: Total time spent providing and/or coordinating discharge services: 5 minutes Exam Narrative: General: In no acute distress, well nourished Cardiac: Normal S1 and S2. Irregular rate and rhythm, rate controlled No murmur, gallops or friction rubs, peripheral pulses intact. Respiratory: Lungs clear to auscultation, no adventitious lung sounds, currently on room air Gastrointestinal: soft, non-distended, non-tender, normoactive bowel sounds. : voiding without difficulty. Neuro: Alert and oriented x4 Extremities: Left forearm swollen and tender DS: Data Data Completed and Pending Labs on day of discharge: Labs from last 24 hours 03/27/25 03:56 WBC 9.8 RBC 4.11 L Hgb 12.1 Hct 38.8 MCV 94.4 MCH 29.4 MCHC 31.2 L RDW 15.9 H Plt Count 280 MPV 9.6 Immature Gran % (Auto) 0.4 Neut % (Auto) 69.8 Lymph % (Auto) 19.9 [place] % (Auto) 9.2 H Eos % (Auto) 0.5 Baso % (Auto) 0.2 Lymph # (Auto) 1.96 [place] # (Auto) 0.9 H Eos # (Auto) 0.1 Baso # (Auto) 0.0 Abs Immat Gran (auto) 0.04 H Absolute Neuts (auto) 6.9 H Absolute Nucleated RBC 0.000 Nucleated RBC % 0.0 Sodium 138 Potassium 4.3 Chloride 104 Carbon Dioxide 25 Anion Gap 9 BUN 24 H Creatinine 0.79 Estim Creat Clear Calc 69 Estimated GFR > 60 Glucose 120 H Calcium 9.3 Total Bilirubin 0.7 AST 25 ALT 24 Alkaline Phosphatase 100 Total Protein 7.0 Albumin 3.9 Imaging Radiologist's impression: ITS Impressions Chest X-Ray 03/21/25 14:46 Impression: Stable central venous congestive change versus pulmonary artery hypertension. No acute abnormality seen. Discharge Plan Discharge Attending physician on discharge: Caleb Hoyt Consulting providers: Scott Vyas Discharging Clinician: Caleb Hoyt Anticipated Discharge Date/Time: 03/27/25 14:14 Patient Disposition: Home Activity: as tolerated Diet: heart healthy Patient Instructions: Antibiotic Form Patient Language: Turkmen Stand Alone Forms: General Discharge Information Follow-up/Referrals: Teodoro,Neftaly Chand [Other] - 1 Week Discharge Medications: New cephalexin 500 mg Capsule 500 mg PO Q6HR Qty: 24 0RF metoprolol tartrate 50 mg Tablet 100 mg PO Q12HR Qty: 120 0RF diltiazem HCl 240 mg Capsule,Ext.Rel 24h Degradable 240 mg PO QAM Qty: 30 0RF Continued atorvastatin 20 mg tablet 20 mg PO DAILY trandolapril 2 mg tablet 2 mg PO DAILY hydrochlorothiazide 25 mg tablet 25 mg PO DAILY ergocalciferol (vitamin D2) 1,250 mcg (50,000 unit) capsule 1,250 mcg PO WEEKLY Rx Instructions: FRIDAYS potassium citrate 15 mEq tablet extended release 15 meq PO BID allopurinol 100 mg tablet 200 mg PO DAILY Eliquis 5 mg Tablet 5 mg PO Q12HR Qty: 30 0RF Discontinued metoprolol succinate 50 mg tablet extended release 24 hr 50 mg PO DAILY metoprolol tartrate 25 mg Tablet 25 mg PO Q12HR Qty: 60 0RF Date of admission: 03/22/25 13:51 Primary Care Provider: Teodoro,Neftaly Chand Admitting Provider: Preet Quiroz Attending physician on admission: Preet Quiroz Condition: Improved
== END 2025-03-27 18:35 | disposition home or self-care (01) | DRG 309 ==
LOC: ANHED 14:10 → ANHIMU 16:32
PROVIDERS: Internal Medicine Interventional Cardiology; Nurse Practitioner Acute Care; Physician Assistant; Admitting Provider Internal Medicine; Emergency Provider Emergency Medicine; Visit Provider Internal Medicine
PROC: (CPT 93312; principal; 2025-03-24 13:00)
DX: I48.20 Chronic atrial fibrillation, unspecified (principal); L03.114 Cellulitis of left upper limb; T82.7XXA Infection and inflammatory reaction due to other cardiac and vascular devices, implants and grafts, initial encounter; T80.1XXA Vascular complications following infusion, transfusion and therapeutic injection, initial encounter; I80.8 Phlebitis and thrombophlebitis of other sites; I51.3 Intracardiac thrombosis, not elsewhere classified; I10 Essential (primary) hypertension; I89.0 Lymphedema, not elsewhere classified; E78.5 Hyperlipidemia, unspecified; M19.90 Unspecified osteoarthritis, unspecified site; Z79.01 Long term (current) use of anticoagulants; Z87.442 Personal history of urinary calculi
CPT/HCPCS: 36415; 71046; 80053; 83690; 83735; 83880; 84484; 84550; 85025; 85610; 85730; 93005; 93312; 93320; 93325; 96366; 96367; 96374; 96375; 96376; 99285; A9270; G0378; J0282; J1160; J1200; J1938; J2250; J3010; J3475; J3480; J7040; Q9957

== ENCOUNTER 2025-04-27 01:29 | Day surgery (SDC) | payer OTHER, SELFPAY ==
[2025-04-26 11:44] VITALS: BMI 40.4
--- NOTE | 2025-04-27 | ECHO_ITS ---
Patient Info Name: Amaris Butler Age: 69 years : 1955 Gender: Female Ht: 64 in Wt: 235 lbs BSA: 2.25 m2 Technical Quality: Good Exam Date: 04/27/2025 1:16 PM Patient Status: unknown Admit Date: 04/27/2025 Exam Type: CA echo transesophageal Complete two-dimensional, color flow and Doppler transesophageal study is performed. Retail Assistant Manager: Candice Pinto Attending Provider: Mookie Owens Summary 1. There is normal biventricular size and systolic function. 2. There is mild mitral regurgitation. 3. There is a PFO. 4. There is no left atrial appendage thrombus. Left Ventricle The left ventricle is normal in systolic function. Right Ventricle The right ventricle is normal in systolic function. Atrial Septum There is a PFO without atrial septal aneurysm. Atrial Appendage There is no thrombus in left atrial appendage. There is low pulse wave velocity measuring 23 cm/s. Aortic Valve The aortic valve is trileaflet and opens well. There is no aortic regurgitation. Pulmonic Valve The pulmonic valve is not well visualized. There is no color Doppler evidence of pulmonic valve regurgitation. Mitral Valve The mitral valve is normal. There is mild mitral regurgitation. Tricuspid Valve The tricuspid valve is normal. There is no tricuspid regurgitation. Pericardium/Pleural Pericardium is normal in appearance with no evidence for significant pericardial effusion. Aorta There is mild atherosclerotic plaque in the visualized portions of the aorta. Report Signatures
--- OUTSIDE RECORDS SUMMARY | 2025-04-27 01:31 | XMS_ITS | Encounter Summary ---
Author Organization [facility] Address [address] [place] [address] Care Team Providers Care Operations Intern Name Role Phone Neftaly Valerio MD Primary Care Provider [phone] Reason for Visit * Reason Onset Date Comments MEDICATION REFILL 04/18/2025 Encounter Details Date Type Department Care Team (Late st Contact Info) Description 04/18/2025 Refill [facility] - Internal Med [address] [facility] [place] [phone] Neftaly Valerio MD 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 Not on file Not on file Not [...] Entry Date Author No 07/04/2015 10:59 AM CDT Raul Jimenez RN documented in this encounter Miscellaneous Notes * Telephone Encounter - Caroline Page LPN - 04/18/2025 11:10 AM CDT Refill Request Amaris Butler Recent Visits Date Type Provider Dept 04/07/25 Office Visit Kirit Solomon MD [facility] 2[facility] 02/02/25 Office Visit Neftaly Valerio MD [facility] 2l 12/08/24 Office Visit Neftaly Valerio MD [facility] 2l 06/03/24 [facility] 2l Showing recent visits within past 540 days with a meds authorizing provider and meeting all other requirements Future Appointments Date Type Provider Dept 04/20/25 Appointment Neftaly Valerio MD [facility] 2l Showing future appointments within next 150 days with a meds authorizing provider and meeting all other requirements Last Refill: 8.24 Allergies: Allergies[1] Pended Medication Order: Requested Prescriptions Pending Prescriptions Disp Refills vitamin D, ergocalciferol, (Drisdol) 1.25 MG (95581 UT) capsule 12 capsule 1 Sig: Take 1 (one) capsule by mouth every 7 days (once a week) [1] Allergies Allergen Reactions Sulfa Drugs Rash Sulfacetamide Rash documented in this encounter Plan of Treatment Upcoming Encounters Date Type Department Care Team (Late st Contact Info) Description 05/03/2025 9:00 AM CDT Clinical Support [facility] - Vascular Surgery [address] [place] [phone] Margot North MD [address] [place] [address] 2L [place] [phone] 05/04/2025 10:00 AM CDT Office Visit [facility] - Rheumatology [address] [place] [phone] [address] [phone] Kenny rBaun MD [address] [place] [address] 2L [place] [phone] 05/08/2025 8:45 AM CDT Office Visit [facility] - Ophthalmology [address] [place] [phone] Rupesh Sharam MD [address] [place] [address] [place] [address] 05/10/2025 9:00 AM CDT Clinical Support [facility] - Vascular Surgery [address] [place] [phone] Margot North MD [address] [place] [address] 2L [place] [phone] 05/11/2025 4:00 PM CDT Office Visit [facility] - Internal Med [address] [place] [phone] Neftaly Valerio MD [address] [place] [address] 06/07/2025 1:50 PM CDT Office Visit [facility] - Nephrology [address] [facility] [place] [phone] Roxana Gallardo MD [address] [facility] 2L [place] [address] 06/30/2025 9:40 AM CDT Office Visit [facility] - General Dermatology [address] [place] [phone] Robyn Babcock MD [address] [facility] 3L [place] [address] 09/04/2025 9:20 AM CDT Appointment [facility] [address] [place] [address] Josie Almonte, MAIL CENSOR-WORKFORCE ANALYST [address] [facility] [place] [address] 09/13/2025 10:30 AM CDT Office Visit [facility] [place] [facility] - Urology [address] [place] [phone] Josie Almonte, MAIL CENSOR-WORKFORCE ANALYST [address] [place] [address] [place] [address] 12/11/2025 9:00 AM EXTRUSION DIE REPAIRER Appointment [facility] Breast Care [address] [facility] [address] [place] [address] 03/14/2026 10:10 AM CDT Office Visit [facility] [place] [facility] - ACCOUNT ASSISTANT [address] [facility] [address] [place] [phone] Titus Kong MD [address] [address] 03/19/2026 9:10 AM CDT Office Visit [facility] - ACCOUNT ASSISTANT [address] [facility] [address] [place] [address] Titus Kong MD [address] [place] [address] documented as of this encounter Goals Goal [...] documented as of this encounter Visit Diagnoses Diagnosis Vitamin D deficiency documented in this encounter Care Teams Operations Intern Relationship Specialty Start Date End Date Neftaly Valerio MD [facility] [place] [address] PCP - General Internal Medicine 07/18/24 documented as of this encounter
--- OUTSIDE RECORDS SUMMARY | 2025-04-27 01:31 | XMS_ITS | Encounter Summary ---
Author Organization [facility] Address [address] [facility] [place] [address] Care Team Providers Care Deliverer Outside Name Role Phone Emilia Hernandez OUTSIDE SALES ENGINEER-NURSE CASE MANAGEMENT Primary Care Provi scarlett Edgar Watson MD Primary Care Provider [phone] Emilia Hernandez OUTSIDE SALES ENGINEER-NURSE CASE MANAGEMENT Primary Care Provi scarlett Razia Coles OUTSIDE SALES ENGINEER-NURSE CASE MANAGEMENT Primary Care Provider [phone] Neftaly Valerio MD Primary Care Provider [phone] Reason for Visit * Reason Onset Date Comments Med Question 06/02/2018 Med Question 06/03/2018 1st attempt to c ontact pt LM Encounter Details Date Type Department Care Team (Late st Contact Info) Description 06/02/2018 Telephone [facility] General Internal Medicine [address] [address] Emilia Hernandez, OUTSIDE SALES ENGINEER-NURSE CASE MANAGEMENT [address] OF [facility] [place] [address] Med Question; Med Question (1st attempt to contact pt LM) Social History Tobacco Use Types Packs/Day Years Used Date Smoking Tobacco: Never Smokeless Tobacco: Never Alcohol Use Standard Drinks/Week Comments No 0 (1 standard drink = 0.6 oz pur e alcohol) Comments No Sex and Gender Information Value Date Recorded Sex Assigned at Not on file 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 Left message @ [phone] with affiliation and contact number, , no pertient patient information left on voicemail. Will re attempt at a later time. CRANBERRY SORTER Mary's Message It is fine for her [...] 10:34 AM CDT PT: Carrie Glez PH: [phone] Pt wanted to let Emilia know that [...] Support [facility] - Vascular Surgery [address] [place] [address], [facility] [place] [phone] Margot North MD [address] [place] [address] [place] [address] 05/04/2025 10:00 AM CDT Office Visit [facility] - Rheumatology [address] [place] [address], [facility] [place] [phone] Gala Post APRN-CNP [address] [place] [phone] Kenny Braun MD [address] [place] [address] 2L DIV [place] [address] 05/08/2025 8:45 AM CDT Office Visit [facility] - Ophthalmology [address] [place] [address], [place] [phone] Rupesh Sharma MD [address] [place] [address] GL [place] [address] 05/10/2025 9:00 AM CDT Clinical Support [facility] - Vascular Surgery [address] [place] [address], [place] [address] Margot North MD [address] [place] [address] 2L [place] [address] 05/11/2025 4:00 PM CDT Office Visit [facility] - Internal Med [address] [place] [address] Neftaly Valerio MD [address] [place] [address] 06/07/2025 1:50 PM CDT Office Visit [facility] - Nephrology [address] [place] [address], [place] [phone] Roxana Gallardo MD [address] [place] [address] 2L DIV OF NEPHROLOGY [place], [place] [phone] 06/30/2025 9:40 AM CDT [facility] - General Dermatology [address], [facility] [address] [place] [phone] Robyn Babcock MD [address] [place] [address] 3L DEPT [place] [address] 09/04/2025 9:20 AM CDT Appointment [facility] CAT SCAN [address] [place] [address] Josie Almonte, OUTSIDE SALES ENGINEER-NURSE CASE MANAGEMENT [address] [facility] DEPT [place] [address] 09/13/2025 10:30 AM CDT Office [facility] Urology [address] [facility] [address] [place] [address] Josie Almonte, OUTSIDE SALES ENGINEER-NURSE CASE MANAGEMENT [address] [facility] DEPT [place] [address] 12/11/2025 9:00 AM VARNISHER Appointment [facility] Breast Care [address] [place] [address] 03/14/2026 10:10 AM CDT Office Visit [facility] - ASSISTANT SECRETARY [address] [place] [address] Titus Kong MD [address] [place] [address] 03/19/2026 9:10 AM CDT Office Visit [facility] - ASSISTANT SECRETARY [address] [place] [address] Titus Kong MD [address] [place] [address] documented as of this encounter Visit Diagnoses Not on filedocumented in this encounter Care Teams Deliverer Outside Relationship Specialty Start Date End Date Emilia Hernandez, OUTSIDE SALES ENGINEER-NURSE CASE MANAGEMENT PCP - General 04/30/18 06/17/21 Edgar Watson MD [address] [facility] 2L DIV [place] [address] PCP - General 06/18/21 07/16/21 Emilia Hernandez OUTSIDE SALES ENGINEER-NURSE CASE MANAGEMENT [address] [facility] 2L DIV [place] [address] PCP - General 07/17/21 11/12/21 Razia Coles, OUTSIDE SALES ENGINEER-NURSE CASE MANAGEMENT [address] [place] [phone] PCP - General 11/13/21 12/07/22 Neftaly Valerio MD [address] [place] [address] PCP - General Internal Medicine 07/18/24 documented as of this encounter
--- OUTSIDE RECORDS SUMMARY | 2025-04-27 01:31 | XMS_ITS | Continuity of Care Document ---
Author Organization [facility] Address [address] [place] [address] [address] [place] [address] Phone Care Team Providers Care Media Reconciliation Specialist Name Role Phone Robert PT,MPT,ATC, Don Unavailable Unavai lable Procedures Procedure Date THERAPEUTIC EXERCISES NEUROMUSCULAR RE-ED FUNC ACTIVITY THERAPEUTIC EXERCISES NEUROMUSCULAR RE-ED FUNC ACTIVITY THERAPEUTIC EXERCISES NEUROMUSCULAR RE-ED FUNC ACTIVITY THERAPEUTIC EXERCISES NEUROMUSCULAR RE-ED FUNC ACTIVITY THERAPEUTIC EXERCISES NEUROMUSCULAR RE-ED FUNC ACTIVITY THERAPEUTIC EXERCISES NEUROMUSCULAR RE-ED FUNC ACTIVITY PT RE-EVALUATION THERAPEUTIC EXERCISES NEUROMUSCULAR RE-ED FUNC ACTIVITY THERAPEUTIC EXERCISES NEUROMUSCULAR RE-ED FUNC ACTIVITY THERAPEUTIC EXERCISES NEUROMUSCULAR RE-ED FUNC ACTIVITY THERAPEUTIC EXERCISES NEUROMUSCULAR RE-ED FUNC ACTIVITY THERAPEUTIC EXERCISES NEUROMUSCULAR RE-ED FUNC ACTIVITY THERAPEUTIC EXERCISES NEUROMUSCULAR RE-ED FUNC ACTIVITY PT RE-EVALUATION THERAPEUTIC EXERCISES NEUROMUSCULAR RE-ED PT EVALUATION THERAPEUTIC EXERCISES Advance Directives Directive Yes / No Effective Date File Name No Information Encounters Encounter Description Practice Location Reason(s) For Visit Diagnoses Date Provider Providers Copied on Encounter [facility] [place] [address], [id number], tel:[phone] [place] No Information Oct-2 8- 5 Robert Dorado , [place], [place]. [facility] [place] [address], [id number], tel:[phone] [place] No Information Oct-2 1-201 5 Robert [place] , [place], [place]. [facility], [id number], tel:[phone] [place] No Information Oct-1 4-201 5 Robert [place] , [place]. [facility] [place] [address], [id number], tel:[phone] [place] No Information Dec-0 3-201 [address] [facility], [address], [place], [place], [facility], [place]. tel: [phone] [facility] [place] [address], [id number], tel:[phone] [place] No Information 2 7- 5 Robert [place]. [facility] [place] [address] [place] [address], [id number], tel:[phone] [place] No Information Sep-2 3-201 5 Robert [place] [facility] [place] [address], [id number], tel:[phone] [place] No Information Nov-1 0-201 5 Robert [place] [facility] [place] [address] [place] [address], [id number], tel:[phone] [place] No Information Nov-0 9-201 5 Ginny Godoy. [address] [place] [address], [address], [place], [address], [place]. tel: [phone] [address], [place], [place], [id number], [place] tel:[phone] [place] No Information Nov-0 4-201 5 Raleigh Jo Ann. [address] [place] [address], [address], [place], [address], [place]. tel: [phone] [address], [place], [place], [id number], [place] tel:[phone] [place] No Information Nov-0 2-201 5 Raleigh Jo Ann. [address] [place] [address], [address], [place], [address], [place]. tel: [phone] [address], [place], [place], [id number], [place] tel:[phone] [place] No Information Aug-2 8-201 5 Raleigh Jo Ann. [address] [place] [address], [address], [place], [address], [place]. tel: [phone] [place] [address] [address], [place], [place], [id number], [place] tel:[phone] [place] No Information Aug-2 6-201 5 Raleigh Jo Ann. [address] [place] [address], [address], [place], [address], [place]. tel: [phone] [address], [place], [place], [id number], [place] tel:[phone] [place] No Information Oct-1 5-201 5 Raleigh Jo Ann. [address] [place] [address], [address], [place], [address], [place]. tel: [phone] [address], [place], [place], [id number], [place] tel:[phone] [place] Pain in unspecified hipPain in right hipDifficulty in walking, not elsewhere classifiedMuscle weakness (generalized) [address] [facility], [address], [place], [address], [place]. tel: [phone] Family History Family Member Type Diagnosis Age At Onset No Information Payers Payer name Insurance type Covered alliance party ID Rigoberto garcia(s) r [id number] [facility] 2014 Social History Type Description Quantity Date Captured Comments Sex Female Smoking Status No Information Chief Complaint And Reason For Visit No Information Reason For Referral Reason For Referral No Information History Of Present Illness Encounter Date Complaint History Of Prese nt Illness No Information Functional Status Date Functional Assessmen t No Information Instructions Date Instruction Additional Infor mation No Information Assessments Type Assessment Date No Information Patient Care Teams Name Effective Dates (start - stop) Status Members No Information
--- OUTSIDE RECORDS SUMMARY | 2025-04-27 01:31 | XMS_ITS | Encounter Summary ---
Author Organization [facility] Address [address] [facility] [place] [address] Care Team Providers Care Health Type Technician Name Role Phone Emilia Hernandez TEACHER EMOTIONALLY IMPAIRED-INSTRUCTOR INDUSTRIAL DESIGN Primary Care Provi scarlett Edgar Watson MD Primary Care Provider [phone] Emilia Hernandez TEACHER EMOTIONALLY IMPAIRED-INSTRUCTOR INDUSTRIAL DESIGN Primary Care Provi scarlett Razia Coles TEACHER EMOTIONALLY IMPAIRED-INSTRUCTOR INDUSTRIAL DESIGN Primary Care Provider [phone] Neftaly Valerio MD Primary Care Provider [phone] Reason for Visit * Reason Onset Date Comments HEMOPTYSIS 11/25/2018 Encounter Details Date Type Department Care Team (Late st Contact Info) Description 11/25/2018 Telephone [facility] General Internal Medicine [address] [address] Emilia Hernandez, TEACHER EMOTIONALLY IMPAIRED-INSTRUCTOR INDUSTRIAL DESIGN [address] OF [facility] [place] [address] HEMOPTYSIS Social History Tobacco Use Types Packs/Day Years Used Date Smoking Tobacco: Never Smokeless Tobacco: Never Alcohol Use Standard Drinks/Week Comments No 0 (1 standard drink = 0.6 oz pur e alcohol) Comments No Sex and Gender Information Value Date Recorded Sex Assigned at Not on file Legal Sex Female 7:34 AM UNDERWRITING SALES REPRESENTATIVE Gender Identity Not on file Sexual Orientation Not on file 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 Call back phone number provided. RWRITING SALES REPRESENTATIVE * Telephone Encounter - Bhavani Leiva RN - 11/25/2018 4:37 PM CST Telephone call from patient to planetarium sky show technician. Patient notified planetarium sky show technician that she was coughing up small amounts of blood in her phlegm and also was having L hip pain. This nurse advised planetarium sky show technician to goahead and schedule the patient for an acute care appointment and that she (the nurse) would call patient back to triage shortly. RWRITING SALES REPRESENTATIVE documented in this encounter Plan of Treatment Upcoming Encounters Date Type Department Care Team (Late st Contact Info) Description 05/03/2025 9:00 AM CDT Clinical Support [facility] - Vascular Surgery [address] [place] [phone] Margot North MD [address] [place] [address] 2L [place] [address] 05/04/2025 10:00 AM CDT Office Visit [facility] - Rheumatology [address] [place] [phone] PersonGala, TEACHER EMOTIONALLY IMPAIRED-[facility] [address] [phone] Kenny Braun MD [address] [place] [address] 2L [place] [address] 05/08/2025 8:45 AM CDT Office Visit [facility] - Ophthalmology [address] [place] [phone] Rupesh Sharma MD [address] [place] [address] DE[place] [address] 05/10/2025 9:00 AM CDT Clinical Support [facility] - Vascular Surgery [address] [place] [phone] Margot North MD [address] [place] [address] 2L DIV [place] [address] 05/11/2025 4:00 PM CDT Office Visit [facility] - Internal Med [address] [place] [phone] Neftaly Valerio MD [address] [place] [address] 06/07/2025 1:50 PM CDT Office Visit [facility] - Nephrology [address] [facility], [place] [phone] Roxana Gallardo MD [address] [facility] 2L [place] [address] 06/30/2025 9:40 AM CDT Office Visit [facility] - General Dermatology [address], [address] [place] [phone] Robyn Babcock MD [address] [facility] 3L [place] [address] 09/04/2025 9:20 AM CDT Appointment [facility] CAT SCAN [address] [place] [address] Josie Almonte, TEACHER EMOTIONALLY IMPAIRED-INSTRUCTOR INDUSTRIAL DESIGN [address] [facility] DEPT [place] [address] 09/13/2025 10:30 AM CDT Office Visit [facility] - Urology [address] [place] [address] Josie Almonte, TEACHER EMOTIONALLY IMPAIRED-INSTRUCTOR INDUSTRIAL DESIGN [address] [facility] DEPT [place] [address] 12/11/2025 9:00 AM UNDERWRITING SALES REPRESENTATIVE Appointment [facility] Health Breast Care [address] [facility] [address] [place] [address] 03/14/2026 10:10 AM CDT Office Visit [facility] - SUBWAY REPAIR SUPERVISOR [address] [facility] [address] [place] [phone] Titus Kong MD [address] [place] [address] 03/19/2026 9:10 AM CDT Office Visit [facility] - SUBWAY REPAIR SUPERVISOR [address] [facility] [address] [place] [phone] Titus Kong MD [address] [place] [address] documented as of this encounter Visit Diagnoses Not on filedocumented in this encounter Care Teams Health Type Technician Relationship Specialty Start Date End Date Emilia Hernandez, TEACHER EMOTIONALLY IMPAIRED-INSTRUCTOR INDUSTRIAL DESIGN PCP - General 04/30/18 06/17/21 Edgar Watson MD [address] 2L DIV OF GEN [place] [address] PCP - General 06/18/21 07/16/21 Emilia Hernandez, TEACHER EMOTIONALLY IMPAIRED-INSTRUCTOR INDUSTRIAL DESIGN [address] 2L DIV OF [place] [address] PCP - General 07/17/21 11/12/21 Razia Coles, TEACHER EMOTIONALLY IMPAIRED-INSTRUCTOR INDUSTRIAL DESIGN [address] [place] [address] PCP - General 11/13/21 12/07/22 Neftaly Valerio MD [address] [place] [address] PCP - General Internal Medicine 07/18/24 documented as of this encounter
--- OUTSIDE RECORDS SUMMARY | 2025-04-27 01:31 | XMS_ITS | Encounter Summary ---
Author Organization [facility] Healthcare Address [address] [place] [address] Care Team Providers Care Receiving Tank Operator Name Role Phone Neftaly Sanchez MD Primary Care Provider [phone] Encounter Details Date Type Department Care Team (Late st Contact Info) Description 03/22/2025 Orders Only [facility] [place] [place] Health Information Management [address] [place] [address] Scott Vyas MD [address] [facility] [address] [place] [address] Social History Tobacco Use Types Packs/Day Years Used Date Smoking Tobacco: Never Smokeless Tobacco: Never Comments Unknown Sex and Gender Information Value Date Recorded Sex Assigned at Not on file Legal Sex Female 3:06 PM CDT Gender Identity Not on file Sexual Orientation Not on file documented as of this encounter Plan of Treatment Not on file documented as of this encounter Procedures Procedure Name Priority Date/Time Associated Diagnosis Comments CARDIOLOGY DOCUMENT SCAN 03/22/2025 documented in this encounter Results * Cardiology Document Scan (03/22/2025) Anatomical Region Laterality Modality Other us Scott Vyas MD CV CARDIAC SERVICES PROCEDU RES Final Result documented in this encounter Visit Diagnoses Not on filedocumented in this encounter Care Teams Receiving Tank Operator Relationship Specialty Start Date End Date Neftaly Sanchez MD [address] [place] [address] PCP - General General Surgery 02/14/25 documented as of this encounter
--- OUTSIDE RECORDS SUMMARY | 2025-04-27 01:31 | XMS_ITS | Clinical Summary ---
Author Organization [facility] Address [facility] [place] [address] Care Team Providers Care Furniture Shampooer Name Role Phone Neftaly Sanchez MD Primary Care Provider [phone] Allergies Active Allergy Reactions Criticality Noted Date Comments Sulfa Rash Medium 02/14/2025 Unclassified Drug Rash Medium 11/22/2019 Medications hydroCHLOROthia zide (HYDRODIURIL) 25 mg tablet Take 1 tablet (25 mg total) by mouth daily 1 Active trandolapriL (MAVIK) 2 mg tablet Take 1 tablet (2 mg total) by mouth daily 1 Active atorvastatin (LIPITOR) 20 mg tablet Take 1 tablet (20 mg total) by mouth daily 1 Active ergocalciferol (VITAMIN D) 50,000 unit capsule TAKE 1 CAPSULE BY MOUTH ONCE A WEEK 1 Active allopurinoL (ZYLOPRIM) 100 mg tablet Take 2 tablets (200 mg total) by mouth daily 5 Active Eliquis 5 mg tablet 5 Active oxyBUTYnin XL (DITROPAN-XL) 10 mg 24 hr tablet Take 1 tablet (10 mg total) by mouth daily 5 Active acetaminophen (TYLENOL) 500 mg tablet Take 1 tablet (500 mg total) by mouth every 4 (four) hours as needed Active dilTIAZem XR 240 mg 24 hr capsule Take 1 capsule (240 mg total) by mouth every morning 5 Active potassium citrate ER (UROCIT-K) 15 mEq tablet extended release TAKE 1 (ONE) TABLET BY MOUTH 2 TIMES DAILY Active metoprolol tartrate (LOPRESSOR) 50 mg immediate release tablet 2 tablets (100 mg total) 2 (two) times a day Active metoprolol tartrate (LOPRESSOR) 25 mg immediate release tablet Take 1 tablet (25 mg total) by mouth every 12 (twelve) hours 5 04/10/20 25 Discontinu ed(Alterna te therapy) Active Problems Problem Noted Date Diagnosed Date Mixed hyperlipidemia 05/13/2021 Lipid screening 02/26/2021 Other chest pain 02/25/2021 Essential hypertension 02/25/2021 BMI 40.0-44.9, adult 02/25/2021 Encounters Date Type Department Care Team Description 04/10/2025 10:00 AM CDT Office Visit [facility] Cardiology [address] [place] [address] [place] [phone] Kaley Weaver NP Thrombus of left atrial appendage (Primary Dx); Persistent atrial fibrillation (HCC); Chronic anticoagulation 04/10/2025 Telephone [facility] Cardiology [address] [place] [address] [place] [phone] Kaley Weaver NP 03/30/2025 Orders Only [facility] Cardiology [address] [place] [address] [place] [phone] Kyleigh Medina NP 03/22/2025 Orders Only [facility] Health Information Management [address] [place] [address] Scott Vyas MD 03/08/2025 Telephone [facility] Cardiology [address] [place] [phone] Raimundo Casey MD 02/14/2025 9:00 AM CDT Office Visit [facility] Cardiology [address] [place] [phone] Kaley Weaver NP Paroxysmal atrial fibrillation (HCC) (Primary Dx); Essential hypertension; Class 2 severe obesity due to excess calories with serious comorbidity and body mass index (BMI) of 37.0 to 37.9 in adult (HCC); Encounter for anticoagulation discussion and counseling; Hospital discharge follow-up 02/02/2025 Orders Only [facility] Cardiology [address] [place] [address] Mookie Owens MD 01/26/2025 Telephone [facility] Cardiology [address] [place] [address] Mookie Owens MD from Last 3 [...] Sign Reading Time Taken Comments Blood Pressure 110/86 04/10/2025 10:02 AM CDT Pulse 88 04/10/2025 10:02 AM CDT Temperature - - Respiratory Rate - - Oxygen Saturation 98% 04/10/2025 10:02 AM CDT Inhaled Oxygen Concentration - - Weight 106.1 kg (234 lb) 04/10/2025 10:02 AM CDT Height 162.6 cm (5' 4) 04/10/2025 10:02 AM CDT Body Mass Index 40.17 04/10/2025 10:02 AM CDT Plan of Treatment Health Maintenance Due Date Last Done Comments Colon Cancer Screening-Colonoscopy 1955 Depression Screening 1956 Fall Risk Assessment 1956 Hepatitis C Screening 1955 Pneumococcal vaccine 65+ (1 of 2 - PCV) 1975 Osteoporosis Screening-Bone Density Scan 01/04/2016 01/04/2014, 01/04/2014 Well Visit 65+ 2021 Covid-19 Vaccine (2023-2 5 season) 2024 01/05/2022, 08/05/2021, 07/08/2021 Breast Cancer Screening-Mammogram 12/05/2025 12/05/2024, 12/05/2024, 12/04/2023, Additional history exists DTaP/Tdap/Td Vaccine (4 - Td or Tdap) 09/17/2034 09/17/2024, 08/15/2019, 11/09/2008 Hepatitis B Screening Completed 01/20/2011, 011 Zoster Vaccine Completed 12/11/2022, 09/13/2022 Influenza Vaccine Completed 09/28/2024, , 08/23/2018, Additional history exists Procedures Procedure Name Priority Date/Time Associated Diagnosis Comments CARDIOLOGY DOCUMENT SCAN Routine 03/27/2025 3:11 PM CDT CARDIOLOGY DOCUMENT SCAN 03/22/2025 CARDIOLOGY DOCUMENT SCAN Routine 025 12:32 PM INSURANCE ACCOUNT ASSISTANT from Last 3 Months Results * Cardiology Document Scan (03/27/2025 3:11 PM CDT) Anatomical Region Laterality Modality Other Kyleigh Medina NP CV CARDIAC SERVICES PROCEDUR ES Final Result * Cardiology Document Scan (03/22/2025) Anatomical Region Laterality Modality Other Scott Vyas MD CV CARDIAC SERVICES PROCEDU RES Final Result * Cardiology Document Scan (01/26/2025 12:32 PM INSURANCE ACCOUNT ASSISTANT) Anatomical Region Laterality Modality Other Mookie Owens MD CV CARDIAC SERVICES PROCEDURES F inal Result from Last 3 Months Insurance [facility] CHOICE PLUS [employer] [facility] Care Teams Furniture Shampooer Relationship Specialty Start Date End Date Neftaly Sanchez MD [address] [phone] PCP - General General Surgery 02/14/25
--- OUTSIDE RECORDS SUMMARY | 2025-04-27 01:31 | XMS_ITS | Encounter Summary ---
Author Organization [facility] Address [address] [facility] [place] [address] Care Team Providers Care Frame Opener Name Role Phone Emilia Hernandez SANITARY LANDFILL OPERATOR-[facility] Primary Care Provi scarlett Edgar Watson MD Primary Care Provider [phone] Emilia Hernandez SANITARY LANDFILL OPERATOR-[facility] Primary Care Provi scarlett Razia Coles SANITARY LANDFILL OPERATOR-[facility] Primary Care Provider [phone] Neftaly Valerio MD Primary Care Provider [phone] Encounter Details Date Type Department Care Team (Late st Contact Info) Description 01/28/2021 Telemedicine [facility] General Internal Medicine [address] [place] [address], [place] [address] Emilia Hernandez, SANITARY LANDFILL OPERATOR-[address] [place] [address] Social History Tobacco Use Types Packs/Day Years Used Date Smoking Tobacco: Never Smokeless Tobacco: Never Alcohol Use Standard Drinks/Week Comments No 0 (1 standard drink = 0.6 oz pur e alcohol) Comments No Sex and Gender Information Value Date Recorded Sex Assigned at Not on file Legal Sex Female 7:34 AM BANBURY OPERATOR Gender Identity Not on file Sexual Orientation Not on file 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 Not [...] Support [facility] - Vascular Surgery [address] [place] [phone] Margot North MD [address] [place] [address] 2L DIV [place] [address] 05/04/2025 10:00 AM CDT Office Visit [facility] - Rheumatology [address] [place] [phone] Gala Post APRN-[facility] [address] [address] Kenny Braun MD [address] [place] [address] 2L [place] [address] 05/08/2025 8:45 AM CDT Office Visit [facility]ician Group - Ophthalmology [address] [place] [address], [place] [address] Rupesh Sharma MD [address] [place] [address] GL DEPT [place] [address] 05/10/2025 9:00 AM CDT Clinical Support [facility] Physician Group - Vascular Surgery [address] [place] [address], [place] [address] Margot North MD [address] [place] [address] 2L DIV [place] [address] 05/11/2025 4:00 PM CDT Office Visit [facility] Physician Group - Internal Med [address] [place] [address], [place] [phone] Neftaly Valerio MD [facility] [place] [address] 06/07/2025 1:50 PM CDT Office Visit [facility] Physician Group - Nephrology [address] [place] [address], [place] [address] Roxana Gallardo MD [address] [place] [address] 2L DIV [place] [address] 06/30/2025 9:40 AM CDT Office Visit [facility] Physician Group - General Dermatology [address], [facility] 200 [place] [phone] Robyn Babcock MD [address] [place] [address] 3L [place] [address] 09/04/2025 9:20 AM CDT Appointment [facility] CAT SCAN [address] [place] [phone] Josie Almonte, SANITARY LANDFILL OPERATOR-LEAD RADIATION THERAPIST [address] [place] [address] DEPT [place] [address] 09/13/2025 10:30 AM CDT Office Visit [facility] - Urology [address] [facility] [address] [place] [address] Josie Almonte, SANITARY LANDFILL OPERATOR-LEAD RADIATION THERAPIST [address] [facility] [place] [place] [address] 12/11/2025 9:00 AM BANBURY OPERATOR Appointment [facility] Breast Care [address] [place] [address] 03/14/2026 10:10 AM CDT Office Visit [facility] - DRIVER SUPERVISOR [address] [place] [address] Titus Kong MD [address] [place] [address] 03/19/2026 9:10 AM CDT Office Visit [facility] - DRIVER SUPERVISOR [address] [facility] [address] [place] [address] Titus Kong MD [address] [place] [address] documented as of this encounter Visit Diagnoses Not on filedocumented in this encounter Care Teams Frame Opener Relationship Specialty Start Date End Date Emilia Hernandez SANITARY LANDFILL OPERATOR-LEAD RADIATION THERAPIST PCP - General 04/30/18 06/17/21 Edgar Watson MD [address] DIV OF [facility] [place] [address] PCP - General 06/18/21 07/16/21 Emilia Hernandez SANITARY LANDFILL OPERATOR-LEAD RADIATION THERAPIST [address] [facility] 2L DIV OF GEN [place] [address] PCP - General 07/17/21 11/12/21 Razia Coles APRN-LEAD RADIATION THERAPIST [address] [place] [phone] PCP - General 11/13/21 12/07/22 Neftaly Valerio MD [address] [place] [address] PCP - General Internal Medicine 07/18/24 documented as of this encounter
--- OUTSIDE RECORDS SUMMARY | 2025-04-27 01:31 | XMS_ITS | Encounter Summary ---
Author Organization [facility] Address [address] [place] [address] Care Team Providers Care [employer] Volleyball Coach Name Role Phone Emilia Hernandez APRN-VULCAN CREWMEMBER Primary Care Provi scarlett Edgar Watson MD Primary Care Provider [phone] Emilia Hernandez BULK PIGMENT REDUCER-VULCAN CREWMEMBER Primary Care Provi scarlett Razia Coles BULK PIGMENT REDUCER-VULCAN CREWMEMBER Primary Care Provider [phone] Neftaly Valerio MD Primary Care Provider [phone] Reason for Visit * Reason Onset Date Comments Results 10/27/2018 Results 10/28/2018 1st attempt to c ontact pt with results LM Results 11/05/2018 2nd attempt to c ontact pt with results LM Results 11/11/2018 3rd attempt to c ontact pt with results LM Encounter Details Date Type Department Care Team (Late st Contact Info) Description 10/27/2018 Telephone [facility] General [facility] Medicine [address] [facility] [address] [place] [address] Emilia Hernandez, BULK PIGMENT REDUCER-VULCAN CREWMEMBER [address] OF [place] [phone] Results; Results (1st attempt to contact pt [...] on file Legal Sex Female 7:34 AM TELEVISION REPORTER Gender Identity Not on file Sexual Orientation Not on file 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 She should have received by now. ELZA Faith VISION REPORTER * Telephone Encounter - Kathleen Medina - 11/11/2018 9:08 AM CST Please advise if a letter with results should be sent to patient. VISION REPORTER * Telephone Encounter - Kathleen Medina - 11/11/2018 9:08 AM CST 3rd attempt to contact patient and notify of mammogram results and unable to reach at this time. ? Left message @ [phone]??with affiliation and contact number, , no pertient patientinformation left on voicemail. ? TERRY Hernandez's Message Please tell her they were negative. ELZA Faith VISION REPORTER * Telephone Encounter - Kathleen Medina - 11/05/2018 11:46 AM CST 2nd attempt to contact patient and notify of mammogram results and unable to reach at this time. ?? Left message @ [phone] with affiliation and contact number, , no pertient patient information left on voicemail. ?? Will re attempt at a later time ?? TERRY Hernandez's Message Please tell her they were negative. ELZA Faith VISION REPORTER * Telephone Encounter - Kathleen Medina - 10/28/2018 12:33 PM CST 1st attempt to contact patient and notify of mammogram results and unable to reach at this time. Left message @ [phone] with affiliation and contact number, , no pertient patient information left on voicemail. Will re attempt at a later time COPY DIRECTOR Mary's Message Please tell her they were negative. ELZA Faith VISION REPORTER * Telephone Encounter - Emilia Hernandez APRN-CNP - 10/27/2018 4:13 PM TELEVISION REPORTER Please tell her they were negative. ELZA Faith VISION REPORTER * Telephone Encounter - Fidelina Lamjuliánheather - 10/27/2018 2:28 PM CST Pt Amaris Butler Pt called to get the results of her mammogram, Thank you very much Hayden VISION REPORTER documented in this encounter Plan of Treatment Upcoming Encounters Date Type Department Care Team (Late st Contact Info) Description 05/03/2025 9:00 AM CDT Clinical Support [facility] - Vascular Surgery [address] [place] [phone] Margot North MD [address] [place] [address] 2L [place] [address] 05/04/2025 10:00 AM CDT Office Visit [facility] - Rheumatology [address] [place] [phone] Sincere Galayaz Scanlon, BULK PIGMENT REDUCER-VULCAN CREWMEMBER [address] [place] [address] Kenny Braun MD [address] [place] [address] 2L [place] [address] 05/08/2025 8:45 AM CDT Office Visit [facility] - Ophthalmology [address] [place] [address], [place] [phone] Rupesh Sharma MD [address] [place] [address] DE[place] [address] 05/10/2025 9:00 AM CDT Clinical Support [facility] - Vascular Surgery [address] [place] [phone] Margot North MD [address] [facility] 2L [place] [address] 05/11/2025 4:00 PM CDT Office Visit [facility]ician Group - Internal Med [address] [facility], [place] [address] Neftaly Valerio MD [address] [place] [address] 06/07/2025 1:50 PM CDT Office Visit [facility] Physician Group - Nephrology [address] [facility], [place] [address] Roxana Gallardo MD [address] [facility] 2L [place] [address] 06/30/2025 9:40 AM CDT Office Visit [facility] Physician Group - General Dermatology [address], [address] [place] [phone] Robyn Babcock MD [address] [facility] 3L DEPT [place] [address] 09/04/2025 9:20 AM CDT Appointment [facility] CAT SCAN [address]01 [place] [phone] Josie Almonte, BULK PIGMENT REDUCER-VULCAN CREWMEMBER [address] [place] [address] DE[place] [address] 09/13/2025 10:30 AM CDT Office Visit [facility] Physician Group - Urology [address] [place] [address] Josie Almonte, BULK PIGMENT REDUCER-VULCAN CREWMEMBER [address] [facility] DEPT [place] [address] 12/11/2025 9:00 AM TELEVISION REPORTER Appointment [facility] Breast Care [address] [place] [address] 03/14/2026 10:10 AM CDT Office Visit [facility] Physician Group - TURN OUT WORKER [address] [place] [address] Titus Kong MD [address] [place] [address] 03/19/2026 9:10 AM CDT Office Visit [facility] Physician Group - TURN OUT WORKER [address] [place] [address] Titus Kong MD [address] [place] [address] documented as of this encounter Visit Diagnoses Not on filedocumented in this encounter Care Teams [employer] Volleyball Coach Relationship Specialty Start Date End Date Emilia Hernandez BULK PIGMENT REDUCER-VULCAN CREWMEMBER PCP - General 04/30/18 06/17/21 Edgar Watson MD [address] [facility] 2L DIV [place] [address] PCP - General 06/18/21 07/16/21 Emilia Hernandez BULK PIGMENT REDUCER-VULCAN CREWMEMBER [address] [facility] 2L DIV [place] [address] PCP - General 07/17/21 11/12/21 Razia Coles BULK PIGMENT REDUCER-VULCAN CREWMEMBER [address] [place] [address] PCP - General 11/13/21 12/07/22 Neftaly Valerio MD [address] [place] [address] PCP - General Internal Medicine 07/18/24 documented as of this encounter
--- OUTSIDE RECORDS SUMMARY | 2025-04-27 01:32 | XMS_ITS | Encounter Summary ---
Author Organization [facility] Address [address] [facility] [place] [address] Care Team Providers Care Airport Control Operator Name Role Phone Emilia Hernandez APPLICATION SUPPORT INTERN-BIAS CUTTER Primary Care Provi scarlett Edgar Watson MD Primary Care Provider [phone] Emilia Hernandez APPLICATION SUPPORT INTERN-BIAS CUTTER Primary Care Provi scarlett Razia Coles APPLICATION SUPPORT INTERN-BIAS CUTTER Primary Care Provider [phone] Neftaly Valerio MD Primary Care Provider [phone] Encounter Details Date Type Department Care Team (Late st Contact Info) Description 12/01/2018 Telephone [facility] [address] [place] [address] Luis Daniel Paz MD [address] [place] [phone] Social History Tobacco Use Types Packs/Day Years Used Date Smoking Tobacco: Never Smokeless Tobacco: Never Alcohol Use Standard Drinks/Week Comments No 0 (1 standard drink = 0.6 oz pur e alcohol) Comments No Sex and Gender Information Value Date Recorded Sex Assigned at Not on file Legal Sex Female 7:34 AM HEALTH SERVICES ADMINISTRATOR Gender Identity Not on file Sexual Orientation Not on file 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 Info mailed to home TH SERVICES ADMINISTRATOR documented in this encounter Plan of Treatment Upcoming Encounters Date Type Department Care Team (Late st Contact Info) Description 05/03/2025 9:00 AM CDT Clinical Support [facility] - Vascular Surgery [address] [place] [address], [place] [phone] Margot North MD [address] [place] [address] [place] [address] 05/04/2025 10:00 AM CDT Office Visit [facility] - Rheumatology [address] [place] [phone] Gala Post APRN-[address] [address] Kenny Braun MD [address] [place] [address] 2L [place] [address] 05/08/2025 8:45 AM CDT Office Visit [facility] Physician Group - Ophthalmology [address] [place] [address], [place] [address] Rupesh Sharma MD [address] [place] [address] GL DE[place] [address] 05/10/2025 9:00 AM CDT Clinical Support [facility] Physician Group - Vascular Surgery [address] [place] [address] [place] [address] Margot North MD [address] [place] [address] 2L DIV [place] [address] 05/11/2025 4:00 PM CDT Office Visit [facility] Physician Group - Internal Med [address] [place] [phone] Neftaly Valerio MD 1201 [place] [address] 06/07/2025 1:50 PM CDT [facility] Neph[facility] [address] [place] [address], [place] [address] Roxana Gallardo MD [address] [place] [address] 2L DIV OF NEPHROLOGY [place], [place] [phone] 06/30/2025 9:40 AM CDT [facility] - General Dermatology [address], [address] [place] [address] Robyn Babcock MD [address] [place] [address] 3L [place] [address] 09/04/2025 9:20 AM CDT Appointment [facility] CAT SCAN [address]01 [place] [address] Josie Almonte, APPLICATION SUPPORT INTERN-BIAS CUTTER [address] [facility] DEPT [place] [address] 09/13/2025 10:30 AM CDT Office Visit [facility] - Urology [address] [facility] [address] [place] [address] Josie Almonte, APPLICATION SUPPORT INTERN-BIAS CUTTER [address] [facility] DEPT [place] [address] 12/11/2025 9:00 AM HEALTH SERVICES ADMINISTRATOR Appointment [facility] Breast Care [address] [place] [address] 03/14/2026 10:10 AM CDT Office Visit [facility] Physician Group - TRESTLE MAINTERNANCE LABORER [address] [place] [address] Titus Kong MD [address] [place] [address] 03/19/2026 9:10 AM CDT Office Visit [facility] Physician Group - TRESTLE MAINTERNANCE LABORER [address] [place] [phone] Titus Kong MD [address] [place] [address] documented as of this encounter Visit Diagnoses Not on filedocumented in this encounter Care Teams Airport Control Operator Relationship Specialty Start Date End Date Emilia Hernandez, APPLICATION SUPPORT INTERN-BIAS CUTTER PCP - General 04/30/18 06/17/21 Edgar Watson MD [address] [facility] 2L DIV OF [place] [address] PCP - General 06/18/21 07/16/21 Emilia Hernandez APPLICATION SUPPORT INTERN-BIAS CUTTER [address] [facility] 2L DIV OF [place] [address] PCP - General 07/17/21 11/12/21 Razia Coles, APPLICATION SUPPORT INTERN-BIAS CUTTER [address] [place] [phone] PCP - General 11/13/21 12/07/22 Neftaly Valerio MD [address] [place] [address] PCP - General Internal Medicine 07/18/24 documented as of this encounter
--- OUTSIDE RECORDS SUMMARY | 2025-04-27 01:32 | XMS_ITS | Encounter Summary ---
Author Organization [facility] Address [address] [facility] [place] [address] Care Team Providers Care Biofuels Product Development Manager Name Role Phone Razia Coles Primary Care Provider [phone] Neftaly Valerio MD Primary Care Provider [phone] Reason for Visit * Reason Onset Date Comments Appointment 06/05/2022 Encounter Details Date Type Department Care Team (Late st Contact Info) Description 06/05/2022 Telephone [facility] [address] [place] [address] Razia Coles APRN-CHEMISTS [address] [place] [address] Appointment Social History Tobacco Use Types Packs/Day Years Used Date Smoking Tobacco: Never Smokeless Tobacco: Never Alcohol Use Standard Drinks/Week Comments No 0 (1 standard drink = 0.6 oz pur e alcohol) PHQ-2 Answer Date Recorded PHQ2 TOTAL SCORE 0 11/01/2021 Comments No Sex and Gender Information Value Date Recorded Sex Assigned at Not on file Legal Sex Female 7:34 AM INTERIOR WIRER Gender Identity Not on file Sexual Orientation Not on file 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 Would the scheduling team reach out to the patient to r/s her bumped appt from 07/25/2022 if possible? Patient Call Back number: [phone] documented in this encounter Plan of Treatment Upcoming Encounters Date Type Department Care Team (Late st Contact Info) Description 05/03/2025 9:00 AM CDT Clinical Support [facility] - Vascular Surgery [address] [place] [address], [place] [address] Margot North MD [address] [place] [address] [place] [address] 05/04/2025 10:00 AM CDT Office Visit [facility] - Rheumatology [address] [place] [address], [place] [address] Gala Post APRN-[place] [phone] Kenny Braun MD [address] [place] [address] 2L [place] [address] 05/08/2025 8:45 AM CDT [facility] Op[facility] [address] [place] [address], [place] [address] Rupesh Sharma MD [address] [place] [address] GL [place] [address] 05/10/2025 9:00 AM CDT Clinical Support [facility] - [facility]ascular Surgery [address] [place] [phone] Margot North MD [address] [place] [address] 2L DIV [place] [address] 05/11/2025 4:00 PM CDT [facility] Internal Med [address] [place] [phone] Neftaly Valerio MD [address] [place] [address] 06/07/2025 1:50 PM CDT [facility] Nephrology [address] [place] [address] [place] [phone] Roxana Gallardo MD [address] [place] [address] 2L DIV OF NEPHROLOGY [place], [place] [phone] 06/30/2025 9:40 AM CDT Office Visit [facility] - General Dermatology [address], [facility] 200 [place] [phone] Robyn Babcock MD [address] [place] [address] 3L [place] [address] 09/04/2025 9:20 AM CDT Appointment [facility] CAT SCAN [address] [place] [address] Josie Almonte, CORRECTIONAL OFFICER-CHEMISTS 1225 [facility] DEPT [place] [address] 09/13/2025 10:30 AM CDT Office Visit [facility] - Urology [address] [facility] [address] [place] [phone] Josie Almonte, CORRECTIONAL OFFICER-CHEMISTS 1225 [facility] DEPT [place] [address] 12/11/2025 9:00 AM INTERIOR WIRER Appointment [facility] [address] [place] [address] 03/14/2026 10:10 AM CDT Office Visit [facility] - AUTOMATIC FURNACE OPERATOR [address] [place] [address] Titus Kong MD [address] [place] [address] 03/19/2026 9:10 AM CDT Office Visit [facility] - AUTOMATIC FURNACE OPERATOR [address] [place] [phone] Titus Kong MD [address] [place] [address] documented as of this encounter Visit Diagnoses Not on filedocumented in this encounter Care Teams Biofuels Product Development Manager Relationship Specialty Start Date End Date Razia Coles CORRECTIONAL OFFICER-CHEMISTS [address] [place] [address] PCP - General 12/22/21 1/15/23 Neftaly Valerio MD [address] [place] [address] PCP - General Internal Medicine 07/18/24 documented as of this encounter
--- OUTSIDE RECORDS SUMMARY | 2025-04-27 01:32 | XMS_ITS | Referral Summary ---
Author Organization [facility] Address [facility] [place] [address] Care Team Providers Care Molder Shoulder Pad Name Role Phone Neftaly Sanchez MD Primary Care Provider [phone] Encounters Date Type Department Care Team Description 04/10/2025 Telephone [facility] Cardiology [address] [place] [address] [place] [phone] Kaley Weaver NP 04/10/2025 10:00 AM CDT Office Visit [facility] Cardiology [address] [place] [address] [address] [place] [phone] Kaley Weaver NP Thrombus of left atrial appendage (Primary Dx); Persistent atrial fibrillation (HCC); Chronic anticoagulation 03/30/2025 Orders Only [facility] Cardiology [address] [place] [address] [place] [phone] Kyleigh Medina NP 03/22/2025 Orders Only [facility] Information Management [address] [place] [address] Scott Vyas MD 03/08/2025 Telephone [facility] Cardiology [address] [place] [address] [address] [place] [phone] Raimundo Casey MD 02/14/2025 9:00 AM CDT Office Visit [facility] Cardiology [address] [facility] [address] [place] [phone] Kaley Weaver NP Paroxysmal atrial fibrillation (HCC) (Primary Dx); Essential hypertension; Class 2 severe obesity due to excess calories with serious comorbidity and body mass index (BMI) of 37.0 to 37.9 in adult (HCC); Encounter for anticoagulation discussion and counseling; Hospital discharge follow-up 02/02/2025 Orders Only [facility] Cardiology [address] [place] [address] Mookie Owens MD 01/26/2025 Telephone [facility] Cardiology [address] [place] [address] Mookie Owens MD from Last [...] mg total) 2 (two) times a day 5 Active metoprolol tartrate (LOPRESSOR) 25 mg immediate release tablet Take 1 tablet (25 mg total) by mouth every 12 (twelve) hours 04/10/20 25 Discontinu ed(Alterna te therapy) Active [...] 04/10/2025 10:02 AM CDT Plan of Treatment Not on file Procedures Procedure Name Priority Date/Time Associated Diagnosis Comments CARDIOLOGY DOCUMENT SCAN Routine 03/27/2025 3:11 PM CDT CARDIOLOGY DOCUMENT SCAN 03/22/2025 CARDIOLOGY DOCUMENT SCAN Routine 025 12:32 PM SOAKING TANK WORKER from Last 3 Months Results * Cardiology Document Scan (03/27/2025 3:11 PM CDT) Anatomical Region Laterality Modality Other Kyleigh Medina NP CV CARDIAC SERVICES PROCEDUR ES Final Result * Cardiology Document Scan (03/22/2025) Anatomical Region Laterality Modality Other Scott Vyas MD CV CARDIAC SERVICES PROCEDU RES Final Result * Cardiology Document Scan (01/26/2025 12:32 PM SOAKING TANK WORKER) Anatomical Region Laterality Modality Other Mookie Owens MD CV CARDIAC SERVICES PROCEDURES F inal Result from Last 3 Months Insurance [facility] HMO/PPO Address: [facility] [address] [place] [address] [facility] Care Teams Molder Shoulder Pad Relationship Specialty Start Date End Date Neftaly Sanchez MD [address] [address] PCP - General General Surgery 02/14/25
--- OUTSIDE RECORDS SUMMARY | 2025-04-27 01:32 | XMS_ITS | Encounter Summary ---
Author Organization [facility] Health Address [address] [place] [place] [address] Care Team Providers Care Hat Steamer Name Role Phone Neftaly Valerio MD Primary Care Provider [phone] Reason for Visit * Reason Comments Unna Boot Change Encounter Details Date Type Department Care Team (Late st Contact Info) Description 04/26/2025 9:00 AM CDT Clinical Support [facility] - Vascular Surgery [address] [place] [address], [place] [address] Margot North MD [address] [place] [address] [place] [address] Ulcer of right lower extremity, unspecified ulcer stage (HCC) Social History Tobacco Use Types Packs/Day Years Used Date Smoking Tobacco: Never Smokeless Tobacco: Never Tobacco Cessation:Counseling Given: No Alcohol Use Standard Drinks/Week Comments No 0 (1 standard drink = 0.6 oz pur e alcohol) PHQ-2 Answer Date Recorded Patient Health Questionnaire-2 Score 0 02/02/2025 Comments No Sex and Gender Information Value Date Recorded Sex Assigned at Not on file Legal Sex Female 7:34 AM MEDICAL RADIATION TECH Gender Identity Not on file Sexual Orientation Not on file 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 Not on betina e documented as of this encounter Last Filed Vital Signs Vital Sign Reading Time Taken Comments Blood Pressure 99/47 04/26/2025 9:43 AM CDT Pulse 99 04/26/2025 9:43 AM CDT Temperature 36.9 C (98.4 F) 04/26/2025 9:43 AM CDT Respiratory Rate - - Oxygen Saturation 93% 04/26/2025 9:43 AM CDT Inhaled Oxygen Concentration - - Weight 106.6 kg (235 lb) 04/26/2025 9:43 AM CDT Height 162.6 cm (5' 4) 04/26/2025 9:43 AM CDT Body Mass Index 40.34 04/26/2025 9:43 AM CDT documented in this encounter Functional Status * Is person [...] Raul Jimenez RN documented in this encounter Progress Notes * Margot North MD - 04/26/2025 10:08 AM CDT Left Leg Unna Boot change, Right Leg ABD Pad, Kerflex & Rodolfo Wrap.... Patient tolerated well documented in this encounter Plan of Treatment Upcoming Encounters Date Type Department Care Team (Late st Contact Info) Description 05/03/2025 9:00 AM CDT Clinical Support [facility] - Vascular Surgery [address] [place] [phone] Margot North MD [address] [place] [address] 2L [place] [address] 05/04/2025 10:00 AM CDT Office Visit [facility] - Rheumatology [address] [place] [phone] SincereGala, CHIEF RADIOLOGIC TECHNOLOGIST-GIFT BASKET PACKER [address] [address] Kenny Braun MD [address] [place] [address] 2L [place] [address] 05/08/2025 8:45 AM CDT Office Visit [facility] - Ophthalmology [address] [place] [phone] Rupesh Sharma MD [address] [place] [address] [place] [address] 05/10/2025 9:00 AM CDT Clinical Support [facility] - Vascular Surgery [address] [place] [phone] Margot North MD [address] [place] [address] 2L [place] [phone] 05/11/2025 4:00 PM CDT Office Visit [facility] - Internal Med [address] [place] [phone] Neftaly Valerio MD [address] [place] [address] 06/07/2025 1:50 PM CDT Office Visit [facility] - Nephrology [address] [place] [address], [place] [address] Roxana Gallardo MD [address] [facility] 2L [place] [address] 06/30/2025 9:40 AM CDT Office Visit [facility] - General Dermatology [address] [place] [phone] Robyn Babcock MD [address] [facility] 3L [place] [address] 09/04/2025 9:20 AM CDT Appointment [facility] CAT SCAN [address] [place] [address] Josie Almonte, CHIEF RADIOLOGIC TECHNOLOGIST-GIFT BASKET PACKER [address] [facility] DEPT [place] [address] 09/13/2025 10:30 AM CDT [facility] [address] [place] [address] Josie Almonte, CHIEF RADIOLOGIC TECHNOLOGIST-GIFT BASKET PACKER [address] [place] [address] DE[place] [address] 12/11/2025 9:00 AM MEDICAL RADIATION TECH Appointment [facility] Breast Care [address] [place] [address] 03/14/2026 10:10 AM CDT Office Visit [facility] - CAFE ASSOCIATE [address] [place] [phone] Titus Kong MD [address] [address] 03/19/2026 9:10 AM CDT Office Visit [facility] - CAFE ASSOCIATE [address] [place] [phone] Titus Kong MD [address] [place] [address] documented as of this encounter Goals Goal [...] as of this encounter Visit Diagnoses Diagnosis Ulcer of right lower extremity, unspecified ulcer stage (HCC)- Primary documented in this encounter Care Teams Hat Steamer Relationship Specialty Start Date End Date Neftaly Valerio MD [address] [place] [address] PCP - General Internal Medicine 07/18/24 documented as of this encounter
--- OUTSIDE RECORDS SUMMARY | 2025-04-27 01:32 | XMS_ITS | Encounter Summary ---
Author Organization [facility] Address [address] [place] [address] Care Team Providers Care Track Service Person Name Role Phone Neftaly Valerio MD Primary Care Provider [phone] Encounter Details Date Type Department Care Team (Late st Contact Info) Description 03/08/2025 Results Follow-Up [facility] - Internal Med [address] [facility], [place] [phone] Neftaly Valerio MD [address] [place], [place] [phone] Social History Tobacco Use Types Packs/Day Years Used Date Smoking Tobacco: Never Smokeless Tobacco: Never Alcohol Use Standard Drinks/Week Comments No 0 (1 standard drink = 0.6 oz pur e alcohol) PHQ-2 Answer Date Recorded Patient Health Questionnaire-2 Score 0 02/02/2025 Comments No Sex and Gender Information Value Date Recorded Sex Assigned at Not on file Legal Sex Female 7:34 AM WOOD FENCE INSTALLER Gender Identity Not on file Sexual Orientation Not on file 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 file [...] Support [facility] - Vascular Surgery [address] [place] [phone] Margot North MD [address] [place] [address] 2L [place] [phone] 05/04/2025 10:00 AM CDT Office Visit [facility] - Rheumatology [address] [place] [phone] [address] [phone] Kenny Braun MD [address] [place] [address] 2L [place] [phone] 05/08/2025 8:45 AM CDT Office Visit [facility] - Ophthalmology [address] [place] [phone] Rupesh Sharma MD [address] [place] [address] [place] [phone] 05/10/2025 9:00 AM CDT Clinical Support [facility] - Vascular Surgery [address] [facility], [place] [phone] Margot North MD 12[address] [facility] 2L DIV [place] [address] 05/11/2025 4:00 PM CDT [facility] [address] [facility], [place] [phone] Neftaly Valerio MD [address] [place] [address] 06/07/2025 1:50 PM CDT Office Visit [facility] - Nephrology [address] [place] [address], [place] [phone] Roxana Gallardo MD [address] [facility] 2L [place] [address] 06/30/2025 9:40 AM CDT [facility] General Derm[facility]ology [address] [place] [phone] Robyn Babcock MD [address] [place] [address] 3L [place] [address] 09/04/2025 9:20 AM CDT Appointment [facility] CAT SCAN [address] [place] [phone] Josie Almonte, HISTOLOGIST-FORMWORK CARPENTER [address] [place] [address] DEPT [place] [address] 09/13/2025 10:30 AM CDT [facility]rology [address] [place] [address] Josie Almonte, HISTOLOGIST-FORMWORK CARPENTER [address] [facility] DEPT [place] [address] 12/11/2025 9:00 AM WOOD FENCE INSTALLER Appointment [facility] Breast Care [address] [place] [address] 03/14/2026 10:10 AM CDT Office Visit [facility] - DECATOR OPERATOR [address] [place] [address] [place] [phone] Titus Kong MD [address] [place] [address] 03/19/2026 9:10 AM CDT Office Visit [facility] - DECATOR OPERATOR [address] [facility] [address] [place] [phone] Titus Kong MD [address] [place] [address] documented as of this encounter Goals Goal [...] on filedocumented in this encounter Care Teams Track Service Person Relationship Specialty Start Date End Date Neftaly Valerio MD [address] [place] [address] PCP - General Internal Medicine 07/18/24 documented as of this encounter
--- OUTSIDE RECORDS SUMMARY | 2025-04-27 01:32 | XMS_ITS | Encounter Summary ---
Author Organization [facility] Health Address [address] [facility] [place] [address] Care Team Providers Care Watch Engineer Name Role Phone Razia Coles Primary Care Provider [phone] Neftaly Valerio MD Primary Care Provider [phone] Reason for Visit * Reason Onset Date Comments Congestion 10/23/2022 Encounter Details Date Type Department Care Team (Late st Contact Info) Description 10/23/2022 Telephone [facility] [address] [place] [address] Razia Coles APRN-[facility] [address] [place] [phone] Congestion Social History Tobacco Use Types Packs/Day Years Used Date Smoking Tobacco: Never Smokeless Tobacco: Never Alcohol Use Standard Drinks/Week Comments No 0 (1 standard drink = 0.6 oz pur e alcohol) PHQ-2 Answer Date Recorded PHQ2 TOTAL SCORE 0 11/01/2021 Comments No Sex and Gender Information Value Date Recorded Sex Assigned at Not on file Legal Sex Female 7:34 AM ORACLE SOA ARCHITECT Gender Identity Not on file Sexual Orientation [...] Candice Courtney RN - 10/23/2022 10:53 AM ORACLE SOA ARCHITECT Images from the original note were not [...] and cough suppressant to help with symptoms. LE SOA ARCHITECT documented in this encounter Plan of Treatment Upcoming Encounters Date Type Department Care Team (Late st Contact Info) Description 05/03/2025 9:00 AM CDT Clinical Support [facility] - Vascular Surgery [address] [place] [address], [place] [address] Margot North MD [address] 2L [place] [phone] 05/04/2025 10:00 AM CDT Office Visit [facility] - Rheumatology [address] [place] [phone] Gala Post, DROP PIT WORKER-[employer] [address] [phone] Kenny Braun MD [address] [place] [address] 2L [place] [phone] 05/08/2025 8:45 AM CDT Office Visit [facility] - Ophthalmology [address] [place] [address] [place] [phone] Rupesh Sharma MD [address] [place] [address] [place] [phone] 05/10/2025 9:00 AM CDT Clinical Support [facility] - Vascular Surgery [address] [place] [phone] Margot North MD [address] [place] [address] 2L [place] [phone] 05/11/2025 4:00 PM CDT Office Visit [facility] - Internal Med [address] [place] [phone] Neftaly Valerio MD [address] [place] [address] 06/07/2025 1:50 PM CDT Office Visit [facility] - Nephrology [address] [place] [address] [place] [phone] Roxana Gallardo MD [address] [place] [address] 2L [place] [address] 06/30/2025 9:40 AM CDT Office Visit [facility] - General Dermatology [address] [place] [phone] Robyn Babcock MD [address] [place] 3L [place] [address] 09/04/2025 9:20 AM CDT Appointment [facility] CAT SCAN [address] [place] [address] Josie Almonte, DROP PIT WORKER-[employer]P [employer] [address] [place] [address] 09/13/2025 10:30 AM CDT Office Visit [facility] Urology [address] [place] [phone] Josie Almonte, DROP PIT WORKER-[employer]P [employer] [address] [place] [address] 12/11/2025 9:00 AM ORACLE SOA ARCHITECT Appointment [facility] Breast Care [address] [place] [address] 03/14/2026 10:10 AM CDT Office Visit [facility] - ANALYTICAL CHEMIST [address] [place] [phone] Titus Kong MD [address] [address] 03/19/2026 9:10 AM CDT [facility] Visit [facility] - ANALYTICAL CHEMIST [address] [place] [phone] Titus Kong MD [address] [address] documented as of this encounter Visit Diagnoses Not on filedocumented in this encounter Care Teams Watch Engineer Relationship Specialty Start Date End Date Razia Coles APRN-[employer] [address] [place] [address] PCP - General 11/13/21 12/07/22 Neftaly Valerio MD [address] [place] [address] PCP - General Internal Medicine 07/18/24 documented as of this encounter
--- OUTSIDE RECORDS SUMMARY | 2025-04-27 01:32 | XMS_ITS ---
Author Organization [facility] Address [address] [facility] [place] [address] Care Team Providers Care Convex Grinder Name Role Phone Neftaly Valerio MD Primary Care Provider [phone] Active Problems Patient Care Coordination No te [...] 12/13/2024 Assessment & Plan (12/13/2024 1:51 PM VICE PRESIDENT CLIENT SERVICES): - NSAIDs and tylenol as needed - Ref to physical therapy - Discussed that is likely at least somewhat contributed to by obesity, weight loss will often be helpful Prediabetes 12/13/2024 Assessment & Plan (12/13/2024 1:53 PM VICE PRESIDENT CLIENT SERVICES): - Weight related complication - Check A1c - continue lifestyle changes to diet and exercise as able - Recommend GLP-1 see obesity section Preventative health care 12/13/2024 Assessment & Plan (12/13/2024 1:55 PM VICE PRESIDENT CLIENT SERVICES): The 10-year ASCVD risk score (Alena LENTZ, [...] care then ended up with admission at [facility] - Appears to be resolved [...] 07/29/2024 Assessment & Plan (12/13/2024 1:58 PM VICE PRESIDENT CLIENT SERVICES): - Following with vascular surgery Chronic venous [...] ozempic Assessment & Plan (12/13/2024 1:57 PM VICE PRESIDENT CLIENT SERVICES): - Has been trying to lose weight [...] 09/17/2015 Assessment & Plan (12/13/2024 1:49 PM VICE PRESIDENT CLIENT SERVICES): - Good control - Continue meds - [...] 11/24/2019 Assessment & Plan (10/27/2019 10:23 AM VICE PRESIDENT CLIENT SERVICES): Based on appearance, consist with drug rash. Patient denies any new medications. Would not expect reaction of this severity from Bactrim after tolerating previously for 7 days. Based on exam, ok to stop Bactrim--would is healing well. Zyrtec 20mg daily for 3 days then 10mg daily Stop new soap Cellulitis of right lower extremity 10/27/2019 12/13/2024 Assessment & Plan (10/27/2019 10:24 AM VICE PRESIDENT CLIENT SERVICES): Appears to be healing--ok to stop antibiotics [...]
--- OUTSIDE RECORDS SUMMARY | 2025-04-27 01:32 | XMS_ITS | Clinical Summary ---
Author Organization [facility] [employer] Address [address] [place] [address] Care Team Providers Care Hat Binder Name Role Phone Neftaly Valerio MD Primary Care Provider [phone] Source Comments [facility] [employer],non-owned Affiliates and Associated Physician Practices is amultiple site organization consisting of ambulatory clinics and hospital sitesin [place], [place], [place] and [place]. This disclosure is being madepursuant to the Care Everywhere program and may not contain all information available regarding this patient. Last updated 18.[facility] [employer] Allergies Active Allergy Reactions Criticality Noted Date Comments Sulfa Drugs Rash Medium 11/22/2019 Sulfacetamide Rash Medium 02/14/2025 Medications * Be aware that medications may not be up to date on this document. Alwaysverify current medications with the patient. hydrOXYzine HCl (Atarax) 25 MG tablet Take 1 (one) tablet by mouth 3 times daily as needed (anxiety) 30 tablet 12/08/19 25 Active Additional Information Patient not taking.Reason: Other, Reported on 04/12/2025 hydroCHLOROthi azide (Hydrodiuril) 25 MG tablet Take [...] Patient not taking.Reason: Patient adjusted, Reported on 04/12/2025 allopurinol (Zyloprim) 100 MG tablet Take 2 (two) tablets by mouth once daily 30 tablet 02/02/20 25 Active potassium citrate ER 15 MEQ (1620 MG) tablet Take 1 (one) tablet by mouth 2 times daily 60 tablet 02/02/20 25 Active metoprolol tartrate IR (Lopressor) 25 MG tablet [...] hours 60 tablet 1 03/14/20 25 Active dilTIAZem SR 24hr (Dilacor XR) 240 MG capsule TAKE 1 CAPSULE BY MOUTH EVERY DAY IN THE MORNING 03/27/20 25 Active ammonium lactate (Lac-Hydrin) 12 % lotion Apply to affected area once daily 04/08/20 25 Active vitamin D, ergocalciferol , (Drisdol) 1.25 MG (81072 UT) capsuleIndicat ions:Vitamin D deficiency Take 1 (one) capsule by mouth every 7 days (once a week) 12 capsule 1 04/20/20 25 Active vitamin D, ergocalciferol , (Drisdol) 1.25 MG (87953 UT) capsuleIndicat ions:Vitamin D deficiency Take 1 (one) capsule by mouth every 7 days 12 capsule 1 07/20/20 24 025 Discontinu ed(Reorder ) semaglutide (Wegovy) 0.25 MG/0.5ML penIndications :Obesity Inject 0.25 (one-quarter) mg subcutaneously every 7 days for 28 days, THEN 0.5 (one-half) mg every 7 days for 28 days. Reasons: OBESITY. 6 mL 02/03/20 25 025 Additional Information Patient not taking.Reason: Cost, Reported on 03/14/2025 Active Problems Patient Care Coordination No te [...] 12/13/2024 Assessment & Plan (12/13/2024 1:51 PM ASSEMBLER MOTOR VEHICLE): - NSAIDs and tylenol as needed - Ref to physical therapy - Discussed that is likely at least somewhat contributed to by obesity, weight loss will often be helpful Prediabetes 12/13/2024 Assessment & Plan (12/13/2024 1:53 PM ASSEMBLER MOTOR VEHICLE): - Weight related complication - Check A1c - continue lifestyle changes to diet and exercise as able - Recommend GLP-1 see obesity section Preventative health care 12/13/2024 Assessment & Plan (12/13/2024 1:55 PM ASSEMBLER MOTOR VEHICLE): The 10-year ASCVD risk score (Alena LENTZ, [...] care then [facility] - Appears to be resolved at [...] 07/29/2024 Assessment & Plan (12/13/2024 1:58 PM ASSEMBLER MOTOR VEHICLE): - Following with vascular surgery Chronic venous [...] ozempic Assessment & Plan (12/13/2024 1:57 PM ASSEMBLER MOTOR VEHICLE): - Has been trying to lose weight [...] 09/17/2015 Assessment & Plan (12/13/2024 1:49 PM ASSEMBLER MOTOR VEHICLE): - Good control - Continue meds - [...] 11/24/2019 Assessment & Plan (10/27/2019 10:23 AM ASSEMBLER MOTOR VEHICLE): Based on appearance, consist with drug rash. Patient denies any new medications. Would not expect reaction of this severity from Bactrim after tolerating previously for 7 days. Based on exam, ok to stop Bactrim--would is healing well. Zyrtec 20mg daily for 3 days then 10mg daily Stop new soap Cellulitis of right lower extremity 10/27/2019 12/13/2024 Assessment & Plan (10/27/2019 10:24 AM ASSEMBLER MOTOR VEHICLE): Appears to be healing--ok to stop antibiotics [...] Encounters Date Type Department Care Team Description 04/26/2025 9:00 AM CDT Clinical Support [facility] - Vascular Surgery [address] [place] [phone] Margot North MD Ulcer of right lower extremity, unspecified ulcer stage (HCC) 04/26/2025 Travel 04/23/2025 Orders Only [facility] - Nephrology [address] [place] [phone] Roxana Gallardo MD Kidney stone; Essential hypertension; Hypercholesterolemia; Vitamin D deficiency; Kidney stone on left side; Other microscopic hematuria; Edema, unspecified type; Mixed hyperlipidemia; Prediabetes; Hyperuricemia 04/20/2025 Refill [facility] - Internal Med [address] [place] [phone] Neftaly Valerio MD MEDICATION REFILL 04/19/2025 9:00 AM CDT Clinical Support [facility] - Vascular Surgery [address] [place] [phone] Margot North MD Ulcer of right lower extremity, unspecified ulcer stage (HCC) 04/19/2025 Travel 04/18/2025 Telephone [facility] - Vascular Surgery [address] [place] [phone] Margot North MD Results 04/18/2025 Refill [facility] - Internal Med [address] [place] [phone] Neftaly Valerio MD MEDICATION REFILL 04/13/2025 Telephone [facility] - Vascular Surgery [address] [place] [phone] Margot North MD Wound Care 04/12/2025 2:06 PM CDT - 04/12/2025 11:59 PM CDT Hospital Encounter [facility] [address] [place] [address] Discharge Disposition: Home or Self Care 04/12/2025 9:15 AM CDT Office Visit [facility] - Vascular Surgery [address] [place] [phone] Margot North MD Chronic venous hypertension (idiopathic) with inflammation of bilateral lower extremity (Primary Dx); Ulcer of right lower extremity, unspecified ulcer stage (HCC); Wound of right lower extremity, initial encounter 04/12/2025 Travel 04/07/2025 1:00 PM CDT Office Visit [facility] - Internal Med [address] [place] [phone] Kirit Solomon MD Left arm swelling (Primary Dx); Atrial fibrillation, unspecified type (HCC); Leg swelling; Venous insufficiency of both lower extremities 04/07/2025 Travel 04/06/2025 Telephone [facility] - Internal Med [address] [place] [phone] Neftaly Valerio MD Hospitalization 04/04/2025 Travel 03/22/2025 Orders Only [facility] - Nephrology [address] [place] [phone] Roxana Gallardo MD 03/17/2025 Telephone [facility] - GI [address] [place] [phone] Rigoberto Long RN Follow-up 03/14/2025 10:30 AM CDT Office Visit [facility] - Internal Med [address] [place] [phone] Tachycardia (Primary Dx); Atrial fibrillation, unspecified type (HCC); Moderate persistent asthma without complication (HCC) 03/14/2025 Refill [facility] - Clinical Pharmacy [address] [place] [phone] Sandip Mejia Cristela MEDICATION REFILL 03/14/2025 Travel 03/13/2025 8:50 AM CDT Office Visit [facility] - WEBLOGIC DEVELOPER [facility] [address] [place] [address] Titus Kong MD Well woman exam with routine gynecological exam (Primary Dx) 03/13/2025 Travel 03/09/2025 Telephone [facility] - Internal Med [address] [place] [phone] Neftaly Valerio MD Shortness of Breath 03/08/2025 Results Follow-Up [facility] [address] [place] [phone] Neftaly Valerio MD 02/24/2025 Refill [facility] [address] [place] [phone] Neftaly Valerio MD MEDICATION REFILL 02/15/2025 10:15 AM CDT Office Visit [facility] - Vascular Surgery [address] [place] [phone] Margot North MD Chronic venous hypertension (idiopathic) with inflammation of bilateral lower extremity (Primary Dx) 02/15/2025 Travel 02/09/2025 Refill [facility] [address] [place] [phone] Neftaly Valerio MD MEDICATION REFILL 02/08/2025 10:30 AM CDT Office Visit [facility] - Urology [address] [place] [address] [address] [place] [address] Josie Almonte, WAD PRINTING MACHINE OPERATOR-RADAR SCIENTIST Kidney stone (Primary Dx); Urgency incontinence; Urinary frequency 02/08/2025 Travel 02/02/2025 4:00 PM CDT Office Visit [facility] [address] [place] [phone] Neftaly Valerio MD Class 2 severe obesity [...] left lower extremity 02/02/2025 Travel 02/02/2025 Telephone [facility] - Internal Med [address] [place] [phone] Neftaly Valerio MD Cellulitis 02/01/2025 1:50 PM CDT Office Visit [facility] - Nephrology [address] [place] [phone] Josie Almonte, WAD PRINTING MACHINE OPERATOR-Roxana Corea MD Essential hypertension (Primary Dx); Kidney stone; Hypercholesterolemia; Vitamin D deficiency; Kidney stone on left side; Other microscopic hematuria; Edema, unspecified type; Mixed hyperlipidemia; Prediabetes; Hyperuricemia 02/01/2025 Travel 01/27/2025 Refill [facility] - Internal Med [address] [place] [phone] Neftaly Valerio MD MEDICATION REFILL 01/25/2025 Telephone [facility] [address] [place] [phone] Neftaly Valerio MD Hospital Admission; Patient Requested Call from Last 3 Months Immunizations Immunization Administration [...] on file Legal Sex Female 7:34 AM ASSEMBLER MOTOR VEHICLE Gender Identity Not on file Sexual Orientation Not on file 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 Not on file Not on file Not on betina e Last Filed Vital Signs Vital Sign Reading Time Taken Comments Blood Pressure 99/47 04/26/2025 9:43 AM CDT Pulse 99 04/26/2025 9:43 AM CDT Temperature 36.9 C (98.4 F) 04/26/2025 9:43 AM CDT Respiratory Rate 18 02/08/2025 9:56 AM CDT Oxygen Saturation 93% 04/26/2025 9:43 AM CDT Inhaled Oxygen Concentration - - Weight 106.6 kg (235 lb) 04/26/2025 9:43 AM CDT Height 162.6 cm (5' 4) 04/26/2025 9:43 AM CDT Body Mass Index 40.34 04/26/2025 9:43 AM CDT Plan of Treatment Upcoming Encounters Date Type Department Care Team (Late st Contact Info) Description 05/03/2025 9:00 AM CDT Clinical Support [facility] V[facility] [address] [place] [phone] Margot North MD [address] [place] [address] 2L [place] [phone] 05/04/2025 10:00 AM CDT Office Visit [facility] - Rheumatology [address] [place] [phone] Gala Post APRN[address] [phone] Kenny Braun MD [address] [place] [address] 2L [place] [phone] 05/08/2025 8:45 AM CDT Office Visit [facility] - Ophthalmology [address] [place] [phone] Rupesh Sharma MD [address] [place] [address] [place] [phone] 05/10/2025 9:00 AM CDT Clinical Support [facility] V[facility] Surgery [address] [place] [phone] Margot North MD [address] [place] [address] 2L [place] [phone] 05/11/2025 4:00 PM CDT Office Visit [facility] - Internal Med [address] [facility] [place] [phone] Neftaly Valerio MD [address] [place] [address] 06/07/2025 1:50 PM CDT Office Visit [facility] - Nephrology [address] [facility] [place] [phone] Roxana Gallardo MD [address] [facility] 2L [place] [address] 06/30/2025 9:40 AM CDT Office Visit [facility] - General Dermatology [address] [place] [phone] Robyn Babcock MD [address] [facility] 3L [place] [address] 09/04/2025 9:20 AM CDT Appointment [facility] [address] [place] [phone] Josie Almonte, WAD PRINTING MACHINE OPERATOR-RADAR SCIENTIST [address] [place] [address] [place] [address] 09/13/2025 10:30 AM CDT Office Visit [facility] - Urology [address] [place] [phone] Josie Almonte, WAD PRINTING MACHINE OPERATOR-RADAR SCIENTIST [address] [place] [address] [place] [address] 12/11/2025 9:00 AM ASSEMBLER MOTOR VEHICLE Appointment [facility] [address] [facility] [address] [place] [address] 03/14/2026 10:10 AM CDT Office Visit [facility] - WEBLOGIC DEVELOPER [address] [place] [address] Titus Kong MD [address] [address] 03/19/2026 9:10 AM CDT Office Visit [facility] - WEBLOGIC DEVELOPER [address] [place] [address] Titus Kong MD [address] [address] Health Maintenance Due Date Last Done Comments [...] last dose Medical Devices Implanted Type Area Pay Clerk Device Identifier Shelf Expiration Date Model / Serial / Lot Stent Uret 6fr 22cm Pgtl Crv Tpr Tip Implanted:Qty: 1 on 11/27/2018 by Luis Daniel Paz MD at [facility] Left: [employer] 08/19/2021 [id number] / / [id number] Procedures Procedure Name Priority Date/Time Associated Diagnosis Comments CULTURE WOUND+GRAM STAIN Routine 04/12/2025 1:30 PM CDT Chronic venous hypertension (idiopathic) with inflammation of bilateral lower extremity Wound of right lower extremity, initial encounter COLOGUARD TEST Routine 02/25/2025 11:30 AM CDT Special screening for malignant neoplasms, colon HEMOGLOBIN A1C Routine 12/09/2024 12:00 PM ASSEMBLER MOTOR VEHICLE Morbid obesity Prediabetes Essential hypertension MAMMO BILAT SCREENING W JAVAN Routine 12/05/2024 10:21 AM ASSEMBLER MOTOR VEHICLE Visit for screening mammogram HEPATITIS C AB SCREEN RFLX NAAT QUANT STAT 11/26/2018 2:10 PM ASSEMBLER MOTOR VEHICLE DEXA BONE DENSITY AXIAL SKELETON Routine 01/04/2014 9:48 AM ASSEMBLER MOTOR VEHICLE from Last 3 Months or Most Recently Relevant to Health Maintenance Results * CULTURE WOUND+GRAM STAIN (04/12/2025 1:30 PM CDT) Culture Heavy normal skin sandra 04/15/2025 5:48 AM CDT [facility] Gram Stain No polymorphonuclear cells 04/15/2025 5:48 AM CDT [facility] Gram Stain No organisms seen 025 5:48 AM CDT [facility] Microbiology ENTIRE LOWER LIMB / Unknown Collection / Unknown 04/12/2025 1:30 PM CDT 04/12/2025 2:07 PM CDT Margot North MD LAB - MICROBIOLOGY ORDERABL ES Final Result [facility] [address] [place] [address], [facility] [phone] * [id number] COLOGUARD TEST *Associate with Z12.11 OR Z12.12 Dx Codes* (02/25/2025 11:30 AM CDT) Cologuard Negative Negative [facility] Comment: NEGATIVE TEST RESULT. A negative [...] screened with both Cologuard and colonoscopy. (Gilbert Cavazos, N Engl J Med 2014;370(14):2290-1112) The normal value (reference range) for this assay is negative. COLOGUARD RE-SCREENING RECOMMENDATION: Periodic colorectal cancer screening is an important part of preventive healthcare for asymptomatic individuals at average risk for colorectal cancer. Following a negative Cologuard result, the [place] Cancer Society and U.S. Multi-Society Task Force screening guidelines recommend a Cologuard re-screening interval of 3 years. References: [place] [employer] Guideline for Colorectal Cancer Screening: https://www.cancer.org/cancer/jjlel-hxkghn-vdeivy/dapqnoqqy-iigvlohtt-xojxqai/ acs-recommendations.html.; Reinier DK, Mari HERNANDEZ, Sajan CrawfordK, Colorectal Cancer Screening: Recommendations for Physicians and Patients from the U.S. Multi-Society Task Force on Colorectal Cancer Screening , Am J Gastroenterology 2017; 112:2258-0700. TEST DESCRIPTION: Composite algorithmic analysis of stool [...] screened with both Cologuard and colonoscopy. (Gilbert Cavazos, N Engl J Med 2014;370(14):3787-0517.) Cologuard may produce a false negative or false positive result (no colorectal cancer or precancerous polyp present at colonoscopy follow up). A negative Cologuard test result does not guarantee the absence of CRC or advanced adenoma (pre-cancer). The current Cologuard screening interval is every 3 years. ([place] Cancer Society and U.S. Multi-Society Task Force). Cologuard performance data in a 10,000 patient pivotal study using colonoscopy as the reference method can be accessed at the following location: www.[employer].Taplet/results. Additional description of the Cologuard test process, warnings and precautions can be found at www.cologuard.com. Stool STOOL SPECIMEN / Unknown 02/25/2025 11:30 AM CDT 02/26/2025 10:22 PM CDT Neftaly Valerio MD LAB - CHEMISTRY ORDERABLES Fi nal Result Performing Organization Address [facility] Co de Phone Number [employer] [address] [address] [employer] [address] [place] [address] * (ABNORMAL) HEMOGLOBIN A1C (12/09/2024 12:00 PM ASSEMBLER MOTOR VEHICLE) Pathologist [facility] Hemoglobin A1c 5.8(H) 4.8 - 5.6 % [facility] INSURANCE BILL Comment: Prediabetes: 5.7 - 6.4 Diabetes: >6.4 Glycemic control for adults with diabetes: <7.0 Blood BLOOD SPECIMEN / Unknown 12/09/2024 12:00 PM ASSEMBLER MOTOR VEHICLE 12/09/2024 Narrative [facility] INSURANCE BILL - 12/10/2024 9:09 AM ASSEMBLER MOTOR VEHICLE Performed at: [address] [place] [id number] Plate Preparer: Amadou Mckeon PhD, Phone: [phone] Neftaly Valerio MD LAB - CHEMISTRY ORDERABLES Fi nal Result Performing Organization Address City/[facility] Co de Phone Number [facility] INSURANCE BILL [address] [place] [address] * Mammo Bilat Screening W Javan (12/05/2024 10:21 AM ASSEMBLER MOTOR VEHICLE) Anatomical Region Laterality Modality Breast Bilateral Mammography 12/05/2024 2:10 PM ASSEMBLER MOTOR VEHICLE Impressions 12/05/2024 2:18 PM ASSEMBLER MOTOR VEHICLE IMPRESSION: No mammographic evidence of malignancy in either breast. ASSESSMENT: BIRADS Category 1: Negative mammogram. RECOMMENDATION: Bilateral screening mammogram in one year. Thank you for allowing us to participate in the care of your patient. [facility] utilizes [employer] as a reminder system to notify patients of their next recommended mammogram. > Interpreting Provider: Vanessa aVzquez MD on 12/05/2024 2:18 PM Narrative 12/05/2024 2:18 PM ASSEMBLER MOTOR VEHICLE EXAMINATION: Digital screening mammogram. Low-dose full-field digital [...] SCREEN RFLX NAAT QUANT (11/26/2018 2:10 PM ASSEMBLER MOTOR VEHICLE) Hepatitis C Antibody Non-react muna Non-reac tive 11/26/2018 2:57 PM ASSEMBLER MOTOR VEHICLE [facility] Comment: Hepatitis C Antibody screen indicates no serologic evidence of past or current infection with Hepatitis C Virus. Patients with unexplained liver disease who are immunocompromised or suspected of having acute Hepatitis C infection may benefit from Nucleic Acid Test (CHELI) for Hepatitis C Viral RNA to confirm Hepatitis C status. Blood BLOOD SPECIMEN / Unknown Venipuncture / Unknown 11/26/2018 2:10 PM ASSEMBLER MOTOR VEHICLE 11/26/2018 2:15 PM ASSEMBLER MOTOR VEHICLE Joycelyn Mann WAD PRINTING MACHINE OPERATOR-RADAR SCIENTIST LAB - CHEMISTRY ORDERABL ES Final Result [address] [phone] * DEXA BONE DENSITY AXIAL SKELETON (01/04/2014 9:48 AM ASSEMBLER MOTOR VEHICLE) Anatomical Region Laterality Modality Other Narrative 01/04/2014 3:43 PM ASSEMBLER MOTOR VEHICLE Examination: Dual energy x-ray absorptiometry of the lumbar spine and hip. Clinical Indication: Postmenopausal, fracture right foot. Findings: Detailed data from the exam is sent separately to the ordering physician and is also available on [employer], the Radiology Department's computerized picture archive system [...] This report was electronically signed by GIRISH MCFADDEN D.O. on 01/04/2014 3:43 PM . Procedure Note Girish Mcfadden, DO - 02/20/2018 Examination: Dual energy x-ray absorptiometry of the lumbar spine andhip. Clinical Indication: Postmenopausal, fracture right foot. Findings: Detailed data from the exam is sent separately to the orderingphysician and is also available on [employer], the Radiology Department'Array [employer] picture archive system SUMMARY: No prior study [...] mineral density for young adults. With each -1standard deviation decrease in bone mineral density, the risk for fracture doubles exponentially. A T-score of-1 will double the risk , and -2 will be 4 times the risk. This report was approved by Ernst Cervantes M.D. on 01/04/2014 3:22 PM . IDr. GIRISH D.O. have personally reviewed and interpreted thisexamination/study. This report was electronically signed by GIRISH MCFADDEN D.O. on 01/04/20143:43 PM . Emilia Hernandez WAD PRINTING MACHINE OPERATOR-RADAR SCIENTIST DEXA ORDERABLES Fin al Result from Last 3 Months or Most Recently Relevant to Health Maintenance Insurance [employer] Advance Directives * Full Code (Latest Code Status on File) Date Activated Date Inactivated Comments 11/26/2018 5:01 PM 11/27/2018 5:02 PM Care Teams Hat Binder Relationship Specialty Start Date End Date Neftaly Valerio MD [address] [place] [address] PCP - General Internal Medicine 07/18/24
--- OUTSIDE RECORDS SUMMARY | 2025-04-27 01:32 | XMS_ITS | Encounter Summary ---
Author Organization [facility] Health Address [address] [facility] [address] Care Team Providers Care Station Gateman Name Role Phone Razia Coles ENEIDA-FEDERAL DISTRICT LAW CLERK Primary Care Provider [phone] Neftaly Valerio MD Primary Care Provider [phone] Reason for Visit * Reason Onset Date Comments Results 01/22/2022 Encounter Details Date Type Department Care Team (Late st Contact Info) Description 01/22/2022 Telephone [facility]at[facility] [address] [facility], [place] [address] Robyn Babcock MD [address] [place] [address] 3 [place] [address] Results Social History Tobacco Use Types Packs/Day Years Used Date Smoking Tobacco: Never Smokeless Tobacco: Never Alcohol Use Standard Drinks/Week Comments No 0 (1 standard drink = 0.6 oz pur e alcohol) PHQ-2 Answer Date Recorded PHQ2 TOTAL SCORE 0 11/01/2021 Comments No Sex and Gender Information Value Date Recorded Sex Assigned at Not on file Legal Sex Female 7:[address] ENGINEER FREIGHT Gender Identity Not on file Sexual Orientation Not on file 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 No further treatment needed. ENGINEER FREIGHT * Telephone Encounter - Alejandro Lott - 01/22/2022 2:03 PM CST Pt called today concerning lab results. Said MyChart cannot be accessed. Requests a phone call to discuss. Please advise. ENGINEER FREIGHT documented in this encounter Plan of Treatment Upcoming Encounters Date Type Department Care Team (Late st Contact Info) Description 05/03/2025 9:00 AM CDT Clinical Support [facility] V[facility] Surgery [address] [place] [address], [place] [phone] Margot North MD [address] [place] [address] [place] [address] 05/04/2025 10:00 AM CDT Office Visit [facility] - Rheumatology [address] [place] [phone] Gala Post, BILL POSTER INSTALLER-FEDERAL DISTRICT LAW CLERK [address] [phone] Kenny Braun MD [address] [place] [address] 2L [place] [address] 05/08/2025 8:45 AM CDT Office Visit [facility] - Ophthalmology [address] [place] [address], [place] [address] Rupesh Sharma MD [address] [place] [address] [place] [phone] 05/10/2025 9:00 AM CDT Clinical Support [facility] - Vascular Surgery [address] [place] [phone] Margot North MD [address] [place] [address] 2L [place] [address] 05/11/2025 4:00 PM CDT Office Visit [facility] - Internal Med [address] [place] [phone] Neftaly Valerio MD [address] [place] [address] 06/07/2025 1:50 PM CDT [facility] Neph[facility] [address] [place] [address] [place] [phone] Roxana Gallardo MD [address] [place] [address] 2L [place] [address] 06/30/2025 9:40 AM CDT Office Visit [facility] General Dermatology [address] [place] [phone] Robyn Babcock MD [address] [facility] 3L [place] [address] 09/04/2025 9:20 AM CDT Appointment [facility] CAT SCAN 1201 [place] [address] Josie Almonte, BILL POSTER INSTALLER-FEDERAL DISTRICT LAW CLERK [address] [facility] DEPT [place] [address] 09/13/2025 10:30 AM CDT Office Visit [facility] - Urology [address] [place] [phone] Josie Almonte, BILL POSTER INSTALLER-FEDERAL DISTRICT LAW CLERK [address] [facility] DEPT [place] [address] 12/11/2025 9:[address] ENGINEER FREIGHT Appointment [facility] [address] [place] [address] 03/14/2026 10:10 AM CDT Office Visit [facility] - MAIL MESSENGER [address] [place] [phone] Titus Kong MD [address] [place] [address] 03/19/2026 9:10 AM CDT Office Visit [facility] - MAIL MESSENGER [address] [place] [phone] Titus Kong MD [address] [place] [address] documented as of this encounter Visit Diagnoses Not on filedocumented in this encounter Care Teams Station Gateman Relationship Specialty Start Date End Date Razia Coles APRN-FEDERAL DISTRICT LAW CLERK [address] [place] [address] PCP - General 11/13/21 12/07/22 Neftaly Valerio MD [address] [place] [address] PCP - General Internal Medicine 07/18/24 documented as of this encounter
--- OUTSIDE RECORDS SUMMARY | 2025-04-27 01:32 | XMS_ITS | Continuity of Care Document ---
Author Organization [facility] Address [address] [place] [address] [place] [address] Phone Care Team Providers Care Welt Beater Name Role Phone Han Woody DO Unavailable Unavailable Advance Directives Directive Yes / No Effective Date File Name No Information Encounters Encounter Description Practice Location Reason(s) For Visit Diagnoses Date Provider Providers Copied on Encounter formerly [facility], [id number] [place] [address] [address], [place], [place], [id number], [place] tel:[phone] [facility] No Information Annalise Archuleta. [address] [place], [address], [place]. tel: [phone] Family History Family Member Type Diagnosis Age At Onset No Information Payers Payer name Insurance type Covered republican ID Authoriza tion(s) [facility] Out Of State [id number] Social History Type Description Quantity Date Captured [...]
--- OUTSIDE RECORDS SUMMARY | 2025-04-27 01:32 | XMS_ITS | Encounter Summary ---
Author Organization [facility] Health Address [address] [facility] [place] [address] Care Team Providers Care Parts Remover Name Role Phone Neftaly Valerio MD Primary Care Provider [phone] Encounter Details Date Type Department Care Team (Latest Contact Info) Description 04/26/2025 Travel Social History Tobacco Use Types Packs/Day Years Used Date Smoking Tobacco: Never Smokeless Tobacco: Never Alcohol Use Standard Drinks/Week Comments No 0 (1 standard drink = 0.6 oz pur e alcohol) PHQ-2 Answer Date Recorded Patient Health Questionnaire-2 Score 0 02/02/2025 Comments No Sex and Gender Information Value Date Recorded Sex Assigned at Not on file Legal Sex Female 7:34 AM DATA MANAGEMENT Gender Identity Not on file Sexual Orientation Not on file 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 [...] Support [facility] - Vascular Surgery [address] [place] [phone] Margot North MD [address] [place] [address] 2L [place] [phone] 05/04/2025 10:00 AM CDT Office Visit [facility] - Rheumatology [address] [place] [phone] Sincere Gala Ghislaine, COMMUNITY SERVICE DIRECTOR[address] [phone] Kenny Braun MD [address] [place] [address] 2L [place] [phone] 05/08/2025 8:45 AM CDT [facility] Ophthal[facility] [address] [place] [phone] Rupesh Sharma MD [address] [place] [address] [place] [address] 05/10/2025 9:00 AM CDT Clinical Support [facility] [address] [place] [phone] Margot North MD [address] [place] [address] 2L [place] [address] 05/11/2025 4:00 PM CDT Office Visit [facility] - Internal Med [address] [facility], [place] [address] Neftaly Valerio MD [address]01 [place] [address] 06/07/2025 1:50 PM CDT Office Visit [facility] - Nephrology [address] [place] [address], [place] [phone] Roxana Gallardo MD [facility] [facility] 2L [place] [address] 06/30/2025 9:40 AM CDT Office Visit [facility] - General Dermatology [address], [address] [place] [phone] Robyn Babcock MD [address] [facility] 3L [place] [address] 09/04/2025 9:20 AM CDT Appointment [facility] CAT SCAN [address]01 [place] [address] Josie Almonte, COMMUNITY SERVICE DIRECTOR-PACKAGE DELIVERY ROOM SERVICE RUNNER [address] [place] [address] [place] [address] 09/13/2025 10:30 AM CDT Office Visit [facility] - Urology [address] [place] [phone] Josie Almonte, COMMUNITY SERVICE DIRECTOR-PACKAGE DELIVERY ROOM SERVICE RUNNER [address] [place] [address] [place] [address] 12/11/2025 9:00 AM DATA MANAGEMENT Appointment [facility] [address] [facility] [address] [place] [address] 03/14/2026 10:10 AM CDT Office Visit [facility] - CROWN ASSEMBLY MACHINE OPERATOR [address] [facility] [address] [place] [address] Titus Kong MD [address] [place] [address] 03/19/2026 9:10 AM CDT Office Visit [facility] - CROWN ASSEMBLY MACHINE OPERATOR [address] [facility] [address] [place] [address] Titus Kong MD [address] [place] [address] documented as of this encounter Goals Goal [...] on filedocumented in this encounter Care Teams Parts Remover Relationship Specialty Start Date End Date Neftaly Valerio MD [address] [place] [address] PCP - General Internal Medicine 07/18/24 documented as of this encounter
--- OUTSIDE RECORDS SUMMARY | 2025-04-27 01:32 | XMS_ITS | Encounter Summary ---
Author Organization [facility] Health Address [address] [place] [address] Care Team Providers Care Linux System Admin Name Role Phone Neftaly Valerio MD Primary Care Provider [phone] Encounter Details Date Type Department Care Team (Late st Contact Info) Description 04/23/2025 Orders Only [facility] - Nephrology [address] [place] [address], [place] [phone] Roxana Gallardo MD [address] [place] [address] [place] [address] Kidney stone; Essential hypertension; Hypercholesterolemia; Vitamin D deficiency; Kidney stone on left side; Other microscopic hematuria; Edema, unspecified type; Mixed hyperlipidemia; Prediabetes; Hyperuricemia Social History Tobacco Use Types Packs/Day Years Used Date Smoking Tobacco: Never Smokeless Tobacco: Never Alcohol Use Standard Drinks/Week Comments No 0 (1 standard drink = 0.6 oz pur e alcohol) PHQ-2 Answer Date Recorded Patient Health Questionnaire-2 Score 0 02/02/2025 Comments No Sex and Gender Information Value Date Recorded Sex Assigned at Not on file Legal Sex Female 7:34 AM HONEYCOMB BLANKET MAKER Gender Identity Not on file Sexual Orientation Not on file 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 Not [...] Support [facility] - Vascular Surgery [address] [place] [phone] Margot North MD [address] [place] [address] 2L [place] [phone] 05/04/2025 10:00 AM CDT Office Visit [facility] - Rheumatology [address] [place] [phone] Gala Post APRN[address] [phone] Kenny Braun MD [address] [place] [address] 2L [place] [phone] 05/08/2025 8:45 AM CDT Office Visit [facility] - Ophthalmology [address] [place] [phone] Rupesh Sharma MD [address] [place] [address] GL [place] [phone] 05/10/2025 9:00 AM CDT Clinical Support [facility] Group - Vascular Surgery [address] [place] [address], [place] [phone] Margot North MD [address] [place] [address] 2L DIV [place] [phone] 05/11/2025 4:00 PM CDT Office Visit [facility] - Internal Med [address] [place] [address], [place] [phone] Neftaly Valerio MD [facility] [place] [address] 06/07/2025 1:50 PM CDT Office Visit [facility] - Nephrology [address] [place] [address], [place] [phone] Roxana Gallardo MD [address] [place] [address] 2L [place] [address] 06/30/2025 9:40 AM CDT Office Visit [facility] - General Dermatology [address], [facility] 200 [place] [phone] Robyn Babcock MD [address] [place] [address] 3L [place] [address] 09/04/2025 9:20 AM CDT Appointment [facility] CAT SCAN 1201 [place] [phone] Josie Almonte, MINING DETAIL DRAFTSPERSON-MICROBIOLOGY SUPERVISOR [address] [place] [address] DEPT [place] [address] 09/13/2025 10:30 AM CDT Office Visit [facility] - Urology [address] [place] [address] Josie Almonte, MINING DETAIL DRAFTSPERSON-MICROBIOLOGY SUPERVISOR [address] [facility] DEPT [place] [address] 12/11/2025 9:00 AM HONEYCOMB BLANKET MAKER Appointment [facility] Breast Care [address] [place] [address] 03/14/2026 10:10 AM CDT Office Visit [facility] - DIRECTOR SHOPPER MARKETING [address] [place] [address] Titus Kong MD [address] [place] [address] 03/19/2026 9:10 AM CDT Office Visit [facility] - DIRECTOR SHOPPER MARKETING [address] [facility] [address] [place] [phone] Titus Kong MD [address] [place] [address] documented as of this encounter Goals Goal [...] as of this encounter Visit Diagnoses Diagnosis Kidney stone Calculus of kidney Essential hypertension Hypercholesterolemia Pure hypercholesterolemia Vitamin D deficiency Kidney stone on left side Calculus of kidney Other microscopic hematuria Edema, unspecified type Mixed hyperlipidemia Prediabetes Other abnormal glucose Hyperuricemia Other abnormal blood chemistry documented in this encounter Care Teams Linux System Admin Relationship Specialty Start Date End Date Neftaly Valerio MD [address] [place] [address] PCP - General Internal Medicine 07/18/24 documented as of this encounter
--- OUTSIDE RECORDS SUMMARY | 2025-04-27 01:32 | XMS_ITS | Encounter Summary ---
Author Organization [facility] Health Address [address] [facility] [place] [address] Care Team Providers Care Process Excellence Manager Name Role Phone Emilia Hernandez ROAD MACHINERY INSPECTOR-PROCESS ASSISTANT Primary Care Provi scarlett Edgar Watson MD Primary Care Provider [phone] MACHINERY INSPECTOR-PROCESS ASSISTANT Primary Care Provi scarlett Razia Coles ROAD MACHINERY INSPECTOR-PROCESS ASSISTANT Primary Care Provider [phone] Neftaly Valerio MD Primary Care Provider [phone] Reason for Visit * Reason Onset Date Comments Future Appointment 02/09/2020 Encounter Details Date Type Department Care Team (Late st Contact Info) Description 02/09/2020 Telephone [facility] General Internal Medicine [address] [address] Emilia Hernandez, ROAD MACHINERY INSPECTOR-PROCESS ASSISTANT [address] OF [facility] [place] [phone] Future Appointment Social History Tobacco Use Types Packs/Day Years Used Date Smoking Tobacco: Never Smokeless Tobacco: Never Alcohol Use Standard Drinks/Week Comments No 0 (1 standard drink = 0.6 oz pur e alcohol) Comments No Sex and Gender Information Value Date Recorded Sex Assigned at Not on file Legal Sex Female 7:34 AM FUEL CELL TEST ENGINEER Gender Identity Not on file Sexual Orientation Not on file 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 file Not [...] population Agreed to move appt Transferred to [facility] documented in this encounter Plan of Treatment Upcoming Encounters Date Type Department Care Team (Late st Contact Info) Description 05/03/2025 9:00 AM CDT Clinical Support [facility] - Vascular Surgery [address] [place] [address], [place] [phone] Margot North MD [address] [place] [address] [place] [address] 05/04/2025 10:00 AM CDT Office Visit [facility] - Rheumatology [address] [place] [address], [place] [phone] Gala Post, ROAD MACHINERY INSPECTOR-PROCESS ASSISTANT [address] [phone] Kenny Braun MD [address] [place] [address] 2L DIV [place] [address] 05/08/2025 8:45 AM CDT Office Visit [facility] - Ophthalmology [address] [place] [address], [place] [phone] Rupesh Sharma MD [address] [place] [address] DEPT [place] [address] 05/10/2025 9:00 AM CDT Clinical Support [facility] - Vascular Surgery [address] [place] [phone] Margot North MD [address] [place] [address] 2L DIV [place] [address] 05/11/2025 4:00 PM CDT [facility] Med [address] [place] [phone] Neftaly Valerio MD [address] [place] [address] 06/07/2025 1:50 PM CDT [facility] Nephrology [address] [place] [address] [place] [phone] Roxana Gallardo MD [address] [place] [address] 2L [place] [address] 06/30/2025 9:40 AM CDT Office Visit [facility] - General Dermatology [address], [address] [place] [phone] Robyn Babcock MD [address]25 [facility] 3L DEPT [place] [address] 09/04/2025 9:20 AM CDT Appointment [facility] CAT SCAN [address] [place] [address] Josie Almonte, ROAD MACHINERY INSPECTOR-PROCESS ASSISTANT 12[address] [facility] DEPT [place] [address] 09/13/2025 10:30 AM CDT Office Visit [facility] - Urology [address] [place] [phone] Josie Almonte, ROAD MACHINERY INSPECTOR-PROCESS ASSISTANT 1225 [facility] DEPT [place] [address] 12/11/2025 9:00 AM FUEL CELL TEST ENGINEER Appointment [facility] [address] [place] [address] 03/14/2026 10:10 AM CDT [facility] - SECRETARY ADMINISTRATIVE ASSISTANT [address] [place] [address] Titus Kong MD [address] [place] [address] 03/19/2026 9:10 AM CDT [facility] - SECRETARY ADMINISTRATIVE ASSISTANT [address] [place] [phone] Titus Kong MD [address] [place] [address] documented as of this encounter Visit Diagnoses Not on filedocumented in this encounter Care Teams Process Excellence Manager Relationship Specialty Start Date End Date Emilia Hernandez, ROAD MACHINERY INSPECTOR-PROCESS ASSISTANT PCP - General 04/30/18 06/17/21 Edgar Watson MD [address] [facility] 2L DIV OF [place] [address] PCP - General 06/18/21 07/16/21 Emilia Hernandez APRN-PROCESS ASSISTANT [address] [facility] 2L DIV OF [place] [address] PCP - General 07/17/21 11/12/21 Razia Coles APRN-PROCESS ASSISTANT [address] [place] [address] PCP - General 11/13/21 12/07/22 Neftaly Valerio MD [address] [place] [address] PCP - General Internal Medicine 07/18/24 documented as of this encounter
--- NOTE | 2025-04-27 12:00 | ECG_ITS ---
Test Date: 2025-04-27 12:49:12 Measurements Intervals [place] Rate: 133 P: 0 [place]: 0 QRS: 4 QRSD: 90 T: 180 QT: 294 QTc: 438 Interpretive Statements ATRIAL FIBRILLATION WITH RAPID VENTRICULAR RESPONSE WITH ABERRANT CONDUCTION OR VENTRICULAR PREMATURE COMPLEXES CONSIDER INFERIOR INFARCT, AGE INDETERMINATE BORDERLINE ST-T WAVE ABNORMALITY- ANTNEROLAT/HIGH LAT LEADS BASELINE ARTIFACT- I, II, AVR ABNORMAL ECG Compared to ECG 03/24/2025 11:20:14 ATRIAL FLUTTER NO LONGER PRESENT Electronically Signed On 04-27-2025 13:22:18 CDT by Omega Borrero D.O.
[2025-04-27 12:54] VITALS: BMI 40.4
[2025-04-27 12:58] VITALS: BP 100/80; PULSE 133; RESP 16; TEMP 34.9; O2SAT 94
[2025-04-27 13:11] LABS: Anion Gap 7 mmol/L (4-12); Blood Urea Nitrogen 38 mg/dL (7-17); Calcium 9.8 mg/dL (8.4-10.2); Carbon Dioxide 28 mmol/L (22-30); Chloride 107 mmol/L (98-107); Estimated CRCL calculation 52 ml/min; Estimated Glomerular Filt Rate 50; Glucose 116 mg/dL (65-110); Magnesium 1.7 mg/dL (1.6-2.3); Sodium 142 mmol/L (137-145)
--- NOTE | 2025-04-27 14:00 | ECG_ITS ---
Test Date: 2025-04-27 14:32:08 Measurements Intervals [place] Rate: 45 P: 0 AK: 0 QRS: 0 QRSD: 93 T: 32 QT: 453 QTc: 395 Interpretive Statements SINUS BRADYCARDIA WITH ATRIAL AND VENTRICULAR PREMATURE COMPLEXES CONSIDER INFERIOR INFARCT, AGE INDETERMINATE NONSPECIFIC ST & T-WAVE ABNORMALITY- ANT/HIGH LAT LEADS ABNORMAL ECG Compared to ECG 04/27/2025 12:49:12 ATRIAL FIBRILLATION NO LONGER PRESENT Electronically Signed On 04-27-2025 16:04:05 CDT by Omega Borrero D.O.
--- NOTE | 2025-04-27 14:07 | WPDHPUPDATE1 ---
History and Physical Update Update Date/Time: 04/27/25 13:47 History and Physical has been reviewed, including an updated exam of the patient. There are NO changes in the patient's condition. Risks, benefits, and alternatives have been discussed and questions answered. Patient agrees to proceed with procedure.
--- NOTE | 2025-04-27 14:30 | WPDTECDV ---
KAM[facility]N with Cardioversion Date of procedure: 04/27/25 Procedure Type: Transesophageal echocardiogram with cardioversion Diagnosis: Persistent atrial fibrillation Indications: Persistent atrial fibrillation Description of Procedure: After verbal and written informed consent was obtained, the patient risks, benefits, and alternatives explained in detail. The patient agreed to proceed with the plan of care as outlined above.?The patient was evaluated at bedside in the [facility] procedure room.?The posterior oropharynx, neck, and jaw angle all within normal limits on examination. Lungs were clear to auscultation. See pre-sedation note for further details. The patient was then placed in the appropriate 30 to 45 degree angle supine position at a slight left lateral decubitus position.?Patient was monitored throughout the study with telemetry, oxygen saturation, end-tidal CO2 monitoring, blood pressure, heart rate, and respirations.?The posterior hypopharynx was then locally anesthetized using repeated administration of Hurricaine spray as well as gargled viscous lidocaine. Sedation provided by anesthesia team. After confirmation of adequate sedation, the transesophageal echocardiogram probe was advanced through the oral bite block into the posterior hypopharynx and into the esophagus easily and without complication.?Multiple, multiplanar echocardiographic images were obtained in multiple standard re-projections.?Pulsed wave, continuous-wave, and color-flow Doppler were utilized in conjunction with this study.?At the conclusion of the study, the transesophageal echocardiogram probe was removed easily and without complication. The patient tolerated the procedure well without difficulty.?Patient was in sinus rhythm throughout the study. Sedation: Please refer to anesthesia notes and documentations Findings: Normal biventricular size and systolic function. Mild mitral regurgitation. No thrombus in the left atrial appendage. PFO present. Conclusion: Successful synchronized cardioversion with lutheran of sinus rhythm.
[2025-04-27 14:45] VITALS: BP 92/69; PULSE 60; RESP 22; O2SAT 91
[2025-04-27 15:00] VITALS: BP 85/63; PULSE 55; RESP 15; O2SAT 90
[2025-04-27 15:15] VITALS: BP 91/69; PULSE 89; RESP 14; O2SAT 91
[2025-04-27 15:30] VITALS: BP 96/72; PULSE 55; RESP 17; O2SAT 91
[2025-04-27 15:45] VITALS: BP 106/64; PULSE 55; RESP 14; O2SAT 91
== END 2025-04-27 16:14 | disposition home or self-care (01) ==
PROVIDERS: Visit Provider Internal Medicine
PROC: (CPT 93312; principal; 2025-04-27 13:30)
PROC: 5A2204Z Restoration of Cardiac Rhythm, Single (ICD-10-PCS; 2025-04-27 13:30)
DX: Q21.12 Patent foramen ovale (principal); I34.0 Nonrheumatic mitral (valve) insufficiency; I70.0 Atherosclerosis of aorta; I48.19 Other persistent atrial fibrillation; Z79.01 Long term (current) use of anticoagulants
CPT/HCPCS: 36415; 80048; 83735; 92960; 93312; 93320; 93325; J7040